=== PATIENT | female | born 1950 | race Caucasian/White ===

== ENCOUNTER 2016-07-03 00:43 | Emergency (ER) | payer OTHER ==
[2016-07-03 01:25] LABS: BASOPHIL 0.6 % (0-2.0); EOSINOPHIL 2.3 % (0-4.5); MCH 27.3 pg (25.7-33.7); MCHC 33.1 g/dl (32.0-36.0); MEAN CELL VOLUME 82.5 fl (80-96); MEAN PLT VOLUME 10.2 fl (7.5-11.1); NEUTROPHILS 63.2 % (42.8-82.8); PLATELET COUNT 246 K/MM3 (134-434); RDW 15.5 % (11.6-15.6); WHITE BLOOD COUNT 8.7 K/mm3 (4.0-10.0)
[2016-07-03 01:27] VITALS: TEMP 98.2; BMI 48.4
[2016-07-03 01:41] LABS: INR 0.96 (0.82-1.09); PROTHROMBIN TIME (PATIENT) 10.6 SEC (9.98-11.88)
[2016-07-03 01:43] LABS: ACTIVATED PTT 30.1 SECONDS (26.9-34.4)
[2016-07-03 01:51] LABS: ALBUMIN 3.1 g/dl (3.4-5.0); ANION GAP 11 (8-16); BILIRUBIN,TOTAL 0.2 mg/dL (0.2-1.0); CALCIUM 8.8 mg/dL (8.5-10.1); CO2 28 mmol/L (21-32); CREATININE 0.7 mg/dL (0.55-1.02); GLUCOSE,RANDOM 97 mg/dL (74-106); SGOT/AST 10 U/L (15-37); SGPT/ALT 16 U/L (12-78); TOT PROT 7.3 g/dl (6.4-8.2)
[2016-07-03 01:53] LABS: ALK PHOS 73 U/L (45-117); TROPONIN I 0.02 ng/ml (0.00-0.05)
--- NOTE | 2016-07-03 02:41 | PDOC ---
History of Present Illness - General Chief Complaint: Chest Pain Stated Complaint: CHEST PAIN Time Seen by Provider: 07/03/16 00:54 History Source: Family Exam Limitations: Language Barrier - History of Present Illness Initial Comments: 07/03/16 02:36 65yo Female patient w/ PmHx: HLD, HTN, DM, Asthma, and Morbid Obesity presents to ED c/o chest pain. Patient state symptoms began today while at home. She states pain began in LE and radiated up to her chest traveling down medial aspect of left arm. Patient denies n/v/d, fever, cough, congestion, back pain, abd pain, diff breathing, rash, or any other complaints at this time. Associated dizziness. Presenting Symptoms: Chest Pain, Dizziness Timing/Duration: reports: intermittent Severity/Quality: reports: moderate Location: reports: shoulder (left) Chest Pain Radiation: reports: arms (left) Activities at Onset: reports: no specific activity Past History - Travel Traveled outside of the country in the last 30 days: No Close contact w/someone who was outside of country & ill: No - Past Medical History Allergies/Adverse Reactions: Allergies Allergy/AdvReac Type Severity Reaction Status Date / Time Penicillins Allergy Difficulty Verified 08/02/15 01:42 Breathing Home Medications: Ambulatory Orders Aspirin [ASA -] 81 mg PO DAILY 08/02/12 Mometasone Furoate [Asmanex 220Mcg -] 2 inh IH DAILY PRN 08/02/12 Atorvastatin Ca [Lipitor] 40 mg PO HS #30 tablet 01/02/15 Insulin (Levemir) [Levemir Flexpen -] 30 units SQ DAILY@0700 07/03/16 Insulin Lispro Protamin/Lispro [Humalog Mix 50-50 Vial] 15 unit SQ BID 07/03/16 Asthma: Yes Diabetes: Yes HTN: Yes Hypercholesterolemia: Yes - Surgical History Abdominal Surgery: Yes Orthopedic Surgery: Yes (knee surgery) - Immunization History Immunization Up to Date: Yes - Psycho/Social/Smoking Cessation Hx Anxiety: No Suicidal Ideation: No Smoking Status: No Smoking History: Never smoked Have you smoked in the past 12 months: No Number of Cigarettes Smoked Daily: 0 Information on smoking cessation initiated: No Hx Alcohol Use: No Drug/Substance Use Hx: No Substance Use Type: None Hx Substance Use Treatment: No Cardiac Specific PMH - Complaint Specific PMHX Abdominal Aortic Aneurysm: No Angina: No Cardiac Arrhythmia: No Cardiac Stent: No GERD: No Myocardial Infarction: No Pacemaker: No Pulmonary Embolus: No Valvular Heart Disease: No Peripheral Vascular Disease: No Review of Systems - Review of Systems Able to Perform ROS?: Yes Is the patient limited [place] proficient: Yes Constitutional: No: Chills, Fever Respiratory: No: Cough, Shortness of Breath, Stridor, Wheezing, Productive cough , Hemoptysis Cardiac (ROS): Yes: Chest Pain. No: Edema, Lightheadedness, Palpitations, Syncope, Chest Tightness ABD/GI: No: Diarrhea, Nausea, Poor Appetite, Poor Fluid Intake, Rectal Bleeding , Vomiting : No: Dysuria, Discharge, Flank Pain, Hematuria, Pain, Urgency Musculoskeletal: No: Back Pain, Muscle Pain, Muscle Weakness Integumentary: No: Bruising, Erythema, Rash Neurological: Yes: Dizziness. No: Headache, Numbness, Paresthesia, Seizure, Tingling, Weakness All Other Systems: Reviewed and Negative *Physical Exam - Vital Signs Last Vital Signs Temp Pulse Resp BP Pulse Ox 98.2 F 80 21 146/61 100 07/03/16 01:21 07/03/16 01:21 07/03/16 01:21 07/03/16 01:21 07/03/16 01:21 - Physical Exam General Appearance: Yes: Nourished, Appropriately Dressed. No: Apparent Distress, Mild Distress, Severe Distress Neck: positive: Trachea midline, Supple. negative: Stridor, Lymphadenopathy (R) , Lymphadenopathy (L) Respiratory/Chest: positive: Lungs Clear, Normal Breath Sounds. negative: Respiratory Distress, Accessory Muscle Use, Labored Respiration, Rapid RR, Stridor, Wheezing Cardiovascular: positive: Regular Rhythm, Regular Rate. negative: Edema, JVD, Murmur Gastrointestinal/Abdominal: positive: Normal Bowel Sounds, Soft, Distended. negative: Guarding, Rebound, Tenderness Musculoskeletal: positive: Normal Inspection. negative: CVA Tenderness Extremity: positive: Normal Capillary Refill, Normal Inspection, Normal Range of Motion, Pedal Edema, Swelling Integumentary: positive: Normal Color, Dry, Warm Neurologic: positive: desk director II-XII NML intact, Fully Oriented, Alert, Normal Mood/ Affect, Normal Response, Motor Strength /5 ED Treatment Course - LABORATORY CBC & Chemistry Diagram: 07/03/16 01:17 01:17 - ADDITIONAL ORDERS Additional order review: Laboratory Results 07/03/16 07/03/16 01:17 01:17 INR 0.96 PTT (Actin FS) 30.1 Sodium 138 Potassium 4.3 Chloride 99 Carbon Dioxide 28 Anion Gap 11 BUN 24 H Creatinine 0.7 Creat Clearance w eGFR > 60 Random Glucose 97 D Calcium 8.8 Total Bilirubin 0.2 AST 10 L D ALT 16 D Alkaline Phosphatase 73 Creatine Kinase 88 Troponin I 0.02 Total Protein 7.3 Albumin 3.1 L 07/03/16 01:17 RBC 3.69 MCV 82.5 MCHC 33.1 RDW 15.5 MPV 10.2 Neutrophils % 63.2 Lymphocytes % 23.6 Monocytes % 10.3 H Eosinophils % 2.3 Basophils % 0.6 - RADIOLOGY Radiology Studies Ordered: Category Date Time Status CHEST X-RAY PORTABLE* [RAD] Stat Radiology 07/03/16 01:05 Taken Medical Decision Making - Medical Decision Making 07/03/16 03:[address] Hobson regarding patient work-up and previous admission. Patient okay to d/c home and f/u in office. Family agrees with plan as well as patient. *DC/Admit/Observation/Transfer Diagnosis at time of Disposition: Atypical chest pain - Discharge Dispostion Disposition: HOME Condition at time of disposition: Improved Admit: No - Patient Instructions Printed Discharge Instructions: DI for Atypical Chest Pain Additional Instructions: FOLLOW UP WITH DR. COPE ON MONDAY FOR FURTHER EVALUATION. CALL TO SCHEDULE APPOINTMENT. CONTINUE YOUR MEDICATIONS PRESCRIBED. RETURN IF SYMPTOMS WORSEN , OR ANY CONCERNS FOR FURTHER EVALUATION. Print Language: [place]
[2016-07-03] MEDS ORDERED: MECLIZINE HCL 25 MG TABLET (FP) PO ONE (03:45)
[2016-07-03] MEDS ORDERED: MECLIZINE HCL 25 MG TABLET (FP) ONE (03:49)
[2016-07-03 03:59] VITALS: BP 141/76; PULSE 82
--- NOTE | 2016-07-03 17:16 | EKG ---
Test Reason : Blood Pressure : / mmHG Vent. Rate : 083 BPM Atrial Rate : 083 BPM P-R Int : 166 ms QRS Dur : 108 ms QT Int : 386 ms P-R-T Axes : 051 -34 105 degrees QTc Int : 453 ms NORMAL SINUS RHYTHM LEFT AXIS DEVIATION LEFT VENTRICULAR HYPERTROPHY WITH REPOLARIZATION ABNORMALITY CANNOT RULE OUT SEPTAL INFARCT , AGE UNDETERMINED ABNORMAL ECG WHEN COMPARED WITH ECG OF 02-AUG-2015 02:08, NO SIGNIFICANT CHANGE WAS FOUND Confirmed by MANI CORNEJO MD ([id number]) on 07/03/2016 5:15:57 PM Referred By: Confirmed By:MANI CORNEJO MD
== END 2016-07-03 03:58 | disposition home or self-care (01) ==
LOC: JER 00:43
DX: R07.89 Other chest pain (principal); E11.9 Type 2 diabetes mellitus without complications; Z79.4 Long term (current) use of insulin; J45.909 Unspecified asthma, uncomplicated; I10 Essential (primary) hypertension; E78.00 Pure hypercholesterolemia, unspecified
CPT/HCPCS: 36415; 71010-TC; 80053; 82550; 84484; 85025; 85610; 85730; 93005; 93010; 99284-25

== ENCOUNTER 2017-02-20 09:28 | Inpatient (IN) | payer OTHER ==
[2017-02-20] MEDS ORDERED: methylPREDNISolone NA SUCC 125 MG/2 ML VIAL IVPB ONE (10:01)
[2017-02-20] MEDS ORDERED: ALBUTEROL SO4 2.5/IPRATROPIUM 0.5 INH SOL 3 ML VIAL.NEB. NEB ONE ×3 (10:01→20:43)
--- NOTE | 2017-02-20 10:05 | PDOC ---
History of Present Illness - History of Present Illness Initial Comments: 02/20/17 10:55 66 year old female, with significant past medical history of asthma, IDDM, HTN, HLD, who presents to the emergency room complaining of SOB, nasal congestion, chest tightness, and chills that started on , 5 days ago. The patients son states the symptoms started when the patient had a head cold. The SOB and chest tightness progressively worsened over the past 4 days and he called Dr. Philip today when his mother started wheezing, who advised them to come into the ED. Denies nausea, vomiting. Denies increased leg swelling. Denies recent illness. Allergies: penicillin PCP: Dr. Philip <Pam Mckeon - Last Filed: 02/20/17 10:55> - General History Source: Patient, Family, Old Records Exam Limitations: No Limitations <Ruel Hartmann - Last Filed: 02/20/17 11:34> - General Chief Complaint: Shortness of Breath Stated Complaint: SOB Time Seen by Provider: 02/20/17 09:50 Past History <Pam Mckeon - Last Filed: 02/20/17 10:55> - Past Medical History Asthma: Yes COPD: No Diabetes: Yes HTN: Yes Hypercholesterolemia: Yes - Surgical History Abdominal Surgery: Yes Orthopedic Surgery: Yes (knee surgery) - Immunization History Immunization Up to Date: Yes - Suicide/Smoking/Psychosocial Hx Smoking Status: No Smoking History: Never smoked Have you smoked in the past 12 months: No Number of Cigarettes Smoked Daily: 0 Information on smoking cessation initiated: No Hx Alcohol Use: No Drug/Substance Use Hx: No Substance Use Type: None Hx Substance Use Treatment: No <Ruel Hartmann - Last Filed: 02/20/17 11:34> - Past Medical History Allergies/Adverse Reactions: Allergies Allergy/AdvReac Type Severity Reaction Status Date / Time Penicillins Allergy Difficulty Verified 02/20/17 09:38 Breathing Home Medications: Ambulatory Orders Aspirin [ASA -] 81 mg PO DAILY 08/02/12 Mometasone Furoate [Asmanex 220Mcg -] 2 inh IH DAILY PRN 08/02/12 Atorvastatin Ca [Lipitor] 40 mg PO HS #30 tablet 01/02/15 Insulin (Levemir) [Levemir Flexpen -] 30 units SQ DAILY@0700 07/03/16 Insulin Lispro Protamin/Lispro [Humalog Mix 50-50 Vial] 15 unit SQ BID 07/03/16 Review of Systems - Review of Systems Able to Perform ROS?: Yes Comments:: 02/20/17 10:56 GENERAL/CONSTITUTIONAL: +chills. No weakness. HEAD, EYES, EARS, NOSE AND THROAT: No change in vision. No ear pain or discharge. No sore throat. CARDIOVASCULAR: No chest pain RESPIRATORY: +SOB, chest tightness, congestion, wheezing. No cough, or hemoptysis. GASTROINTESTINAL: No nausea, vomiting, diarrhea or constipation. GENITOURINARY: No dysuria, frequency, or change in urination. MUSCULOSKELETAL: No joint or muscle swelling or pain. No neck or back pain. SKIN: No rash NEUROLOGIC: No headache, vertigo, loss of consciousness, or change in strength/ sensation. ENDOCRINE: No increased thirst. No abnormal weight change. HEMATOLOGIC/LYMPHATIC: No anemia, easy bleeding, or history of blood clots. ALLERGIC/IMMUNOLOGIC: No hives or skin allergy. <Pam Mckeon - Last Filed: 02/20/17 10:55> *Physical Exam - Vital Signs Last Vital Signs Temp Pulse Resp BP Pulse Ox 98 F 92 H 20 134/70 87 L 02/20/17 09:35 02/20/17 09:35 02/20/17 09:35 02/20/17 09:35 02/20/17 09:35 - Physical Exam Comments: 02/20/17 10:56 GENERAL: Awake, alert, and fully oriented, in no acute distress HEAD: No signs of trauma EYES: PERRLA, EOMI, sclera anicteric, conjunctiva clear ENT: Auricles normal inspection, hearing grossly normal, nares patent, oropharynx clear without exudates. Moist mucosa NECK: Normal ROM, supple, no lymphadenopathy, JVD, or masses LUNGS: Tachypneic to 30. Diffuse wheezing bilaterally. no crackles HEART: Regular rate and rhythm, normal S1 and S2, no murmurs, rubs or gallops ABDOMEN: Obese. Soft, nontender, normoactive bowel sounds. No guarding, no rebound. No masses EXTREMITIES: Normal range of motion, no edema. No clubbing or cyanosis. No cords, erythema, or tenderness NEUROLOGICAL: Cranial nerves II through XII grossly intact. Normal speech, normal gait SKIN: Warm, Dry, normal turgor, no rashes or lesions noted. <Pam Mckeon - Last Filed: 02/20/17 10:55> - Vital Signs Last Vital Signs Temp Pulse Resp BP Pulse Ox 98 F 92 H 20 134/70 87 L 02/20/17 09:35 02/20/17 09:35 02/20/17 09:35 02/20/17 09:35 02/20/17 09:35 <Ruel Hartmann - Last Filed: 02/20/17 11:34> Heart Score/ECG Review #1 ECG reviewed & interpreted by me at: 09:45 02/20/17 10:05 NSR 93, LVH with TWI I, avL, LBBB like pattern, QTC 450 msec <Ruel Hartmann - Last Filed: 02/20/17 11:34> ED Treatment Course - LABORATORY CBC & Chemistry Diagram: 02/20/17 10:10 02/20/17 10:10 - ADDITIONAL ORDERS Additional order review: Laboratory Results 02/20/17 02/20/17 02/20/17 10:15 10:10 10:10 PT with INR 12.40 H INR 1.10 PTT (Actin FS) 26.3 L VBG pH 7.31 L POC VBG pCO2 46.7 POC VBG pO2 45.3 Mixed VBG HCO3 22.9 B-Natriuretic Peptide Cancelled 02/20/17 10:10 RBC 3.22 L MCV 85.0 MCHC 32.2 RDW 15.4 MPV 10.6 Neutrophils % 73.3 Lymphocytes % 16.0 D Monocytes % 9.1 Eosinophils % 0.8 Basophils % 0.8 - Medications Given in the ED: ED Medications Discontinued Medications Generic Name Dose Route Start Last Admin Trade Name Freq PRN Reason Stop Dose Admin Albuterol/Ipratropium 3 amp 02/20/17 10:01 02/20/17 10:09 Duoneb - NEB 02/20/17 10:02 3 amp ONCE ONE Administration Methylprednisolone Sodium Succinate 125 mg 02/20/17 10:01 02/20/17 10:09 Solu-Medrol - IVPB 02/20/17 10:02 125 mg ONCE ONE Administration <Pam Mckeon - Last Filed: 02/20/17 10:55> - LABORATORY CBC & Chemistry Diagram: 02/20/17 10:10 02/20/17 10:10 - RADIOLOGY Radiology Studies Ordered: Category Date Time Status CHEST X-RAY PORTABLE* [RAD] Stat Radiology 02/20/17 09:51 Ordered <Ruel Hartmann - Last Filed: 02/20/17 11:34> Medical Decision Making - Critical Care Time Total Critical Care Time (minutes): 35 Critical Care Statement: The care of this patient involved high complexity decision making to prevent further life threatening deterioration of the patient 's condition and/or to evaluate & treat vital organ system(s) failure or risk of failure. - Medical Decision Making 02/20/17 10:04 A portion of this note was documented by scribe services under my direction. I have reviewed the details of the note, within reason, and agree with the documentation with the following case summary and management plan written by me. Patient treated in the ED. Nursing notes are reviewed and incorporated into the medical decision-making. Vital signs reviewed. Peripheral IV access obtained by the nurse, laboratory studies are drawn and sent, reviewed and interpreted by myself. Vital Signs Temp Pulse Resp BP Pulse Ox 98 F 92 H 20 134/70 87 L 02/20/17 09:35 02/20/17 09:35 02/20/17 09:35 02/20/17 09:35 02/20/17 09:35 66 year old female with past medical history of hypertension, diabetes, hyperlipidemia, asthma, morbid obesity sent in by Dr. Philip for shortness of breath, cough and difficulty breathing. The patient the last several days has been endorsing upper respiratory signs and wheezing. 3 days ago, the patient was prescribed Augmentin and compliant to her medications. However, patient continues to wheezes and feels weak and endorses tactile fevers and chills. The patient is certainly wheezing and with asthma exacerbation with likely upper respiratory infection. We'll need to rule out pneumonia. We'll give nebulizers, steroids and likely antibiotics. Sepsis protocol initiated. 02/20/17 11:31 CBC, BMP 02/20/17 10:10 02/20/17 10:10 CMP Sodium 135 mmol/L (136-145) L 02/20/17 10:10 Potassium 5.6 mmol/L (3.5-5.1) H D 02/20/17 10:10 Chloride 99 mmol/L (98-107) 02/20/17 10:10 Carbon Dioxide 28 mmol/L (21-32) 02/20/17 10:10 Anion Gap 8 (8-16) 02/20/17 10:10 BUN 26 mg/dL (7-18) H 02/20/17 10:10 Creatinine 1.1 mg/dL (0.55-1.02) H D 02/20/17 10:10 Creat Clearance w eGFR 49.54 (>60) 02/20/17 10:10 Random Glucose 251 mg/dL (74-106) H D 02/20/17 10:10 Lactic Acid 1.5 mmol/L (0.4-2.0) 02/20/17 10:10 Calcium 8.4 mg/dL (8.5-10.1) L 02/20/17 10:10 Total Bilirubin 0.4 mg/dL (0.2-1.0) D 02/20/17 10:10 AST 41 U/L (15-37) H D 02/20/17 10:10 ALT 26 U/L (12-78) D 02/20/17 10:10 Alkaline Phosphatase 64 U/L (45-117) 02/20/17 10:10 Creatine Kinase 523 IU/L (26-192) H 02/20/17 10:10 Creatine Kinase Index 0.2 % (0.0-5.0) 02/20/17 10:10 CK-MB (CK-2) 1.150 ng/mL (0.5-3.6) 02/20/17 10:10 Troponin I 0.07 ng/ml (0.00-0.05) H 02/20/17 10:10 B-Natriuretic Peptide Cancelled 02/20/17 10:15 Total Protein 6.9 g/dl (6.4-8.2) 02/20/17 10:10 Albumin 2.6 g/dl (3.4-5.0) L 02/20/17 10:10 Chest xray reviewed: Pulmonary vascular congestion vs. bilateral pneumonia. Levaquin ordered. Pt given nebulizers, steroids, and magnesium with improvement in symptoms. Troponin slightly elevated, though likely secondary to strain. However, it is quite possible that her coughing and wheezing may be cardiogenic in origin. Either way, the patient will need further workup inpatient. For the elevated potassium, albuterol has been given. Pt also noted with anemia on blood work, but no transfusion required. Guiac ordered. Case discussed with Dr. iL. Admitted under telemetry admission. Case discussed in detail with admitting physician including history, physical exam and ancillary studies. Admitting physician has assumed care for the patient, will follow all pending diagnostics and will complete the evaluation and treatment. <Ruel Hartmann - Last Filed: 02/20/17 11:34> *DC/Admit/Observation/Transfer <Pam Mckeon - Last Filed: 02/20/17 10:55> - Discharge Dispostion Admit: Yes <Ruel Hartmann - Last Filed: 02/20/17 11:34> Diagnosis at time of Disposition: Shortness of breath Pneumonia Qualifiers: Pneumonia type: due to unspecified organism Laterality: bilateral Lung location : unspecified part of lung Qualified Code(s): J18.9 - Pneumonia, unspecified organism - Discharge Dispostion Condition at time of disposition: Fair - Referrals Referrals: Russell Philip MD [Primary Care Provider] - - Patient Instructions - Post Discharge Activity
[2017-02-20 10:17] LABS: VENOUS BLOOD GAS HCO3 22.9 meq/L (19-25); VENOUS PH 7.31 (7.32-7.42)
[2017-02-20 10:18] LABS: BASOPHIL 0.8 % (0-2.0); EOSINOPHIL 0.8 % (0-4.5); MCH 27.3 pg (25.7-33.7); MCHC 32.2 g/dl (32.0-36.0); MEAN PLT VOLUME 10.6 fl (7.5-11.1); NEUTROPHILS 73.3 % (42.8-82.8); PLATELET COUNT 192 K/MM3 (134-434); RDW 15.4 % (11.6-15.6); WHITE BLOOD COUNT 7.2 K/mm3 (4.0-10.0)
[2017-02-20] MEDS ORDERED: methylPREDNISolone NA SUCC 125 MG/2 ML VIAL ONE (10:22)
[2017-02-20 10:36] LABS: INR 1.1 (0.82-1.09); PROTHROMBIN TIME (PATIENT) 12.4 SEC (9.98-11.88)
[2017-02-20 10:39] LABS: ACTIVATED PTT 26.3 SECONDS (26.9-34.4)
[2017-02-20 10:57] LABS: ALBUMIN 2.6 g/dl (3.4-5.0); ANION GAP 8 (8-16); CALCIUM 8.4 mg/dL (8.5-10.1); CO2 28 mmol/L (21-32); CREATININE 1.1 mg/dL (0.55-1.02); GLUCOSE,RANDOM 251 mg/dL (74-106); SGPT/ALT 26 U/L (12-78)
[2017-02-20] MEDS ORDERED: LEVOFLOXACIN 500 MG IVPB 500 MG/100 ML BAG IVPB ONE ×2 (10:57→11:05)
[2017-02-20] MEDS ORDERED: ACETAMINOPHEN 1000 MG/100 ML VIAL (NON FORMULARY) IVPB ONE (10:59)
[2017-02-20] MEDS ORDERED: ALBUTEROL SO4 0.083% IH SOL 2.5 MG/3 ML VIAL.NEB. NEB ONE ×2 (10:59→11:04)
[2017-02-20] MEDS ORDERED: MAGNESIUM SULF 50% (8.12 MEQ/2 ML-1 GM VIAL) IVPB ONE (10:59)
[2017-02-20 11:01] LABS: ALK PHOS 64 U/L (45-117); BILIRUBIN,TOTAL 0.4 mg/dL (0.2-1.0); TOT PROT 6.9 g/dl (6.4-8.2); TROPONIN I 0.07 ng/ml (0.00-0.05)
[2017-02-20 11:03] LABS: CPK 523 IU/L (26-192); SGOT/AST 41 U/L (15-37)
[2017-02-20] MEDS ORDERED: MAGNESIUM SULF 50% (8.12 MEQ/2 ML-1 GM VIAL) ONE (11:04)
[2017-02-20] MEDS ORDERED: ACETAMINOPHEN INJECTION 100 ML IVPB ONE (11:05)
--- NOTE | 2017-02-20 13:34 | EKG ---
Test Reason : Blood Pressure : / mmHG Vent. Rate : 093 BPM Atrial Rate : 093 BPM P-R Int : 136 ms QRS Dur : 102 ms QT Int : 362 ms P-R-T Axes : 044 -38 109 degrees QTc Int : 450 ms NORMAL SINUS RHYTHM LEFT AXIS DEVIATION T WAVE ABNORMALITY, CONSIDER LATERAL ISCHEMIA ABNORMAL ECG WHEN COMPARED WITH ECG OF 03-JUL-2016 00:57, NO SIGNIFICANT CHANGE WAS FOUND Confirmed by TITO ROBERTS MD ([id number]) on 02/20/2017 1:34:42 PM Referred By: Confirmed By:TITO ROBERTS MD
[2017-02-20] MEDS ORDERED: ACETAMINOPHEN 325 MG TABLET (FP) PO PRN (14:18)
--- NOTE | 2017-02-20 14:18 | HP ---
Admitting History and Physical - Primary Care Physician PCP: Russell Philip - Admission Chief Complaint: sob,cough, for one week History of Present Illness: 66 year old female, with significant past medical history of asthma, IDDM, HTN, HLD, who presents to the emergency room complaining of SOB, nasal congestion, chest tightness, and chills that started on , 5 days ago. The patients son states the symptoms started when the patient had a head cold. The SOB and chest tightness progressively worsened over the past 4 days and he called Dr. Philip today when his mother started wheezing, who advised them to come into the ED. Denies nausea, vomiting. Denies increased leg swelling. Denies recent illness. Allergies: penicillin PCP: Dr. Philip in ER oxygen 87% on room air got iv abx, nebulizer,magnesium, oxygen History Source: Patient - Past Medical History Cardiovascular: Yes: HTN, Hyperlipdemia Pulmonary: Yes: Asthma, Sleep Apnea Gastrointestinal: Yes: GERD Musculoskeletal: Yes: Osteoarthritis Endocrine: Yes: Diabetes Mellitus - Smoking History Smoking history: Never smoked Have you smoked in the past 12 months: No Aproximately how many cigarettes per day: 0 - Alcohol/Substance Use Hx Alcohol Use: No Home Medications - Allergies Allergies/Adverse Reactions: Allergies Allergy/AdvReac Type Severity Reaction Status Date / Time Penicillins Allergy Difficulty Verified 02/20/17 09:38 Breathing - Home Medications Home Medications: Ambulatory Orders Aspirin [ASA -] 81 mg PO DAILY 08/02/12 Mometasone Furoate [Asmanex 220Mcg -] 2 inh IH DAILY PRN 08/02/12 Atorvastatin Ca [Lipitor] 40 mg PO HS #30 tablet 01/02/15 Insulin (Levemir) [Levemir Flexpen -] 30 units SQ DAILY@0700 07/03/16 Insulin Lispro Protamin/Lispro [Humalog Mix 50-50 Vial] 15 unit SQ BID 07/03/16 Review of Systems - Review of Systems Respiratory: reports: Cough, SOB, Wheezing Physical Examination Vital Signs: Vital Signs Temperature 98 F 02/20/17 09:35 Pulse Rate 92 H 02/20/17 09:35 Respiratory Rate 20 02/20/17 09:35 Blood Pressure 134/70 02/20/17 09:35 O2 Sat by Pulse Oximetry (%) 87 L 02/20/17 09:35 Constitutional: Yes: Mild Distress Cardiovascular: Yes: Regular Rate and Rhythm, S1, S2 Respiratory: Yes: Cough, On Nasal O2, Tachypnea, Wheezes Gastrointestinal: Yes: Normal Bowel Sounds, Soft Neurological: Yes: Alert, Oriented Labs: CBC, BMP 02/20/17 10:10 02/20/17 10:10 Imaging - Results Chest X-ray: Report Reviewed (bilateral infiltrate vs congestive changes) Problem List - Problems (1) Pneumonia Assessment/Plan: iv abx CT chest pulm eval oxygen Code(s): J18.9 - PNEUMONIA, UNSPECIFIED ORGANISM Qualifiers: Pneumonia type: due to unspecified organism Laterality: bilateral Lung location: unspecified part of lung Qualified Code(s): J18.9 - Pneumonia, unspecified organism (2) Shortness of breath Assessment/Plan: possible asthma exacerbation with underlying infection duonebs solumedrol oxygen pulm eval echo cardio eval Code(s): R06.02 - SHORTNESS OF BREATH (3) Cough Assessment/Plan: see above Code(s): R05 - COUGH (4) Diabetes mellitus, insulin dependent (IDDM), uncontrolled Assessment/Plan: bgm sliding scale levemir hgba1c Code(s): E10.65 - TYPE 1 DIABETES MELLITUS WITH HYPERGLYCEMIA (5) Elevated troponin Assessment/Plan: tele echo trend CE cardio eval lipid panel Code(s): R74.8 - ABNORMAL LEVELS OF OTHER SERUM ENZYMES
[2017-02-20 14:26] LABS: URINE APPEARANCE CLOUDY; URINE BILIRUBIN NEGATIVE (NEGATIVE); URINE BLOOD NEGATIVE (NEGATIVE); URINE COLOR DKYELLOW; URINE GLUCOSE (UA) 2+ (NEGATIVE); URINE KETONE NEGATIVE (NEGATIVE); URINE NITRITE NEGATIVE (NEGATIVE); URINE UROBILINOGEN NEGATIVE mg/dL (0.2-1.0)
[2017-02-20 14:34] LABS: URINE PROTEIN 3+ (NEGATIVE)
[2017-02-20] MEDS: ALBUTEROL SO4 2.5/IPRATROPIUM 0.5 INH SOL 3 ML VIAL.NEB. NEB SCH ×3 (14:36→22:16)
[2017-02-20 14:41] LABS: GRANULAR CASTS 21 /lpf; URINE HYALINE CAST 7 /lpf; URINE MUCUS FEW; URINE RBC 7 /hpf (0-3); URINE WBC 10 /hpf (3-5)
[2017-02-20] MEDS: INSULIN DETEMIR 100 UNITS/ML MDV SQ SCH ×2 (14:44→22:55)
[2017-02-20] MEDS: INSULIN SLIDING SCALE (NOVOLOG) 1 VIAL SQ SCH ×3 (14:44→22:16)
[2017-02-20] MEDS ORDERED: methylPREDNISolone NA SUCC 40 MG/1 ML VIAL IVPB SCH (15:00)
[2017-02-20] MEDS: methylPREDNISolone NA SUCC 40 MG/1 ML VIAL IVPUSH SCH ×2 (15:06→21:29)
--- NOTE | 2017-02-20 16:01 | CON.CARD ---
Consult Consult Specialty:: Cardiology Referred by:: Jared Reason for Consultation:: sob cp - History of Present Illness Chief Complaint: sob cp History of Present Illness: She is a 66 year old female, history of asthma, NIDDM, HTN, chol, who presents with SOB, nasal congestion, chest tightness, and chills that started on 5 days ago, some fever now better. Also orthopnea and edema. No chest pain, the tightness was post tussive and somewhat exertional for the past few days. No palpitations dizziness or syncope. - History Source History Provided By: Patient, Medical Record - Past Medical History Cardio/Vascular: Yes: HTN, Hyperlipdemia Pulmonary: Yes: Asthma, Sleep Apnea Gastrointestinal: Yes: GERD Musculoskeletal: Yes: Osteoarthritis Endocrine: Yes: Diabetes Mellitus - Alcohol/Substance Use Hx Alcohol Use: No - Smoking History Smoking history: Never smoked Have you smoked in the past 12 months: No Aproximately how many cigarettes per day: 0 Home Medications - Allergies Allergies/Adverse Reactions: Allergies Allergy/AdvReac Type Severity Reaction Status Date / Time Penicillins Allergy Difficulty Verified 02/20/17 09:38 Breathing - Home Medications Home Medications: Ambulatory Orders Aspirin [ASA -] 81 mg PO DAILY 08/02/12 Mometasone Furoate [Asmanex 220Mcg -] 2 inh IH DAILY PRN 08/02/12 Atorvastatin Ca [Lipitor] 40 mg PO HS #30 tablet 01/02/15 Insulin (Levemir) [Levemir Flexpen -] 30 units SQ DAILY@0700 07/03/16 Insulin Lispro Protamin/Lispro [Humalog Mix 50-50 Vial] 15 unit SQ BID 07/03/16 Review of Systems - Review of Systems Constitutional: reports: No Symptoms Eyes: reports: No Symptoms HENT: reports: No Symptoms Neck: reports: No Symptoms Cardiovascular: reports: No Symptoms, Shortness of Breath Gastrointestinal: reports: No Symptoms Genitourinary: reports: No Symptoms Vital Signs: Vital Signs Temperature 98.3 F 02/20/17 14:52 Pulse Rate 98 H 02/20/17 14:52 Respiratory Rate 20 02/20/17 14:52 Blood Pressure 134/80 02/20/17 14:52 O2 Sat by Pulse Oximetry (%) 95 02/20/17 14:52 Constitutional: Yes: Well Nourished, Obese Eyes: Yes: Conjunctiva Clear, EOM Intact HENT: Yes: Atraumatic, Normocephalic Neck: Yes: Supple, Trachea Midline Respiratory: Yes: Regular, Rhonchi Gastrointestinal: Yes: Normal Bowel Sounds, Soft, Abdomen, Obese Renal/: Yes: WNL JVD: No Carotid Bruit: No PMI: Non-Displaced Heart Sounds: Yes: S1, S2 Murmur: Yes: Systolic Murmur, Grade 2 Extremities: Yes: WNL Edema: Yes Edema: LLE: 1+, RLE: 1+ - Other Data Labs, Other Data: CBC, BMP 02/20/17 10:10 02/20/17 10:10 INR, PTT INR 1.10 (0.82-1.09) 02/20/17 10:10 Troponin, BNP 02/20/17 02/20/17 10:10 10:15 Troponin I 0.07 H B-Natriuretic Peptide 939.36 H Cancelled Troponin, BNP 02/20/17 02/20/17 10:10 10:15 Troponin I 0.07 H B-Natriuretic Peptide 939.36 H Cancelled Imaging - Results Chest X-ray: Report Reviewed (bilat inc markings.) EKG: Report Reviewed (nsr lad nssttw changes.) Problem List - Problems (1) Shortness of breath Assessment/Plan: mild elevation of bnp. Echo to assess LV function. Check CT scan. would give PO lasix 40 mg daily. Code(s): R06.02 - SHORTNESS OF BREATH (2) Atypical chest pain Assessment/Plan: Obtain echo. Her troponin is minimally elevated, will follow cardiac enzymes, may be due to hypoxia. Defer stress testing. asa and hold beta kayli for now due to wheezing. Code(s): R07.89 - OTHER CHEST PAIN
--- NOTE | 2017-02-20 16:29 | PN ---
Progress Note (short form) - Note Progress Note: PULMONARY CONSULTATION DICTATED IMP ACUTE HYPOXEMIC RESPIRATORY FAILURE PNEUMONIA ASTHMA HORACE ELEVATED TROPONIN LEVEL ? CHF DM OSAS PLAN INHALED BRONCHODILATORS O2 ANTIBIOTICS STEROIDS LASIX CULTURES F/U CHEST X-RAYS MONITOR LYTES,RENAL FUNCTION TREND TROPONIN DR MANN Problem List - Problems (1) Acute hypoxemic respiratory failure Code(s): J96.01 - ACUTE RESPIRATORY FAILURE WITH HYPOXIA (2) Pneumonia Code(s): J18.9 - PNEUMONIA, UNSPECIFIED ORGANISM Qualifiers: Pneumonia type: due to unspecified organism Laterality: bilateral Lung location: unspecified part of lung Qualified Code(s): J18.9 - Pneumonia, unspecified organism (3) Shortness of breath Code(s): R06.02 - SHORTNESS OF BREATH (4) Chest pain Code(s): R07.9 - CHEST PAIN, UNSPECIFIED Qualifiers: Chest pain type: intercostal pain Qualified Code(s): R07.82 - Intercostal pain (5) Cough Code(s): R05 - COUGH (6) Diabetes mellitus, insulin dependent (IDDM), uncontrolled Code(s): E10.65 - TYPE 1 DIABETES MELLITUS WITH HYPERGLYCEMIA (7) Dizziness Code(s): R42 - DIZZINESS AND GIDDINESS (8) HLD (hyperlipidemia) Code(s): E78.5 - HYPERLIPIDEMIA, UNSPECIFIED (9) Hypertension Code(s): I10 - ESSENTIAL (PRIMARY) HYPERTENSION
[2017-02-20] MEDS ORDERED: INSULIN (NOVOLOG) ASPART 100 UNITS/ML 10ML VIAL ONE ×2 (17:15→22:13)
--- NOTE | 2017-02-20 17:34 | CONSULT ---
Consult Consult Specialty:: Nephrology Reason for Consultation:: hyperkalemia - History of Present Illness Chief Complaint: cough and wheezing History of Present Illness: Pt is a 66 year old female with pmhx of DM, HTN, cho and obesity who presents to the ER with shortness of breath and cough. She also complains of wheezing. She has had a productive cough with yellow sputum. She was found to have elevated creatinine and potassium. She denies dysuria or hematuria. She does not know all of her meds. Unclear if she tool nsaids. She did have chest pain. She says she feels much better after the respiratory treatments in the ER. She is going for ct chest today. - History Source History Provided By: Patient, Medical Record - Past Medical History Cardio/Vascular: Yes: HTN, Hyperlipdemia Pulmonary: Yes: Asthma, Sleep Apnea Gastrointestinal: Yes: GERD Musculoskeletal: Yes: Osteoarthritis Endocrine: Yes: Diabetes Mellitus - Alcohol/Substance Use Hx Alcohol Use: No - Smoking History Smoking history: Never smoked Have you smoked in the past 12 months: No Aproximately how many cigarettes per day: 0 Home Medications - Allergies Allergies/Adverse Reactions: Allergies Allergy/AdvReac Type Severity Reaction Status Date / Time Penicillins Allergy Difficulty Verified 02/20/17 09:38 Breathing - Home Medications Home Medications: Ambulatory Orders Aspirin [ASA -] 81 mg PO DAILY 08/02/12 Mometasone Furoate [Asmanex 220Mcg -] 2 inh IH DAILY PRN 08/02/12 Atorvastatin Ca [Lipitor] 40 mg PO HS #30 tablet 01/02/15 Insulin (Levemir) [Levemir Flexpen -] 30 units SQ DAILY@0700 07/03/16 Insulin Lispro Protamin/Lispro [Humalog Mix 50-50 Vial] 15 unit SQ BID 07/03/16 Family Disease History - Family Disease History Family History: Denies Review of Systems - Review of Systems Constitutional: reports: Chills, Fever, Malaise Eyes: reports: No Symptoms HENT: reports: No Symptoms Neck: reports: No Symptoms Cardiovascular: reports: Edema, Shortness of Breath Respiratory: reports: Cough, SOB on Exertion Musculoskeletal: reports: No Symptoms Integumentary: reports: No Symptoms Neurological: reports: No Symptoms Endocrine: reports: No Symptoms Hematology/Lymphatic: reports: No Symptoms Psychiatric: reports: No Symptoms Physical Exam Vital Signs: Vital Signs Temperature 98.3 F 02/20/17 14:52 Pulse Rate 62 02/20/17 17:09 Respiratory Rate 12 02/20/17 17:09 Blood Pressure 123/52 02/20/17 17:09 O2 Sat by Pulse Oximetry (%) 96 02/20/17 17:09 Constitutional: Yes: Calm Eyes: Yes: Conjunctiva Clear HENT: Yes: Atraumatic Neck: Yes: Supple Cardiovascular: Yes: S1, S2 Respiratory: Yes: On Nasal O2, Wheezes Gastrointestinal: Yes: Soft, Abdomen, Obese Renal/: Yes: WNL Musculoskeletal: Yes: WNL Edema: Yes Edema: LLE: 1+, RLE: 1+ Neurological: Yes: Oriented Psychiatric: Yes: Oriented Labs: CBC, BMP 02/20/17 10:10 02/20/17 10:10 Imaging - Results Chest X-ray: Report Reviewed Problem List - Problems (1) Hyperkalemia Code(s): E87.5 - HYPERKALEMIA (2) Acute hypoxemic respiratory failure Code(s): J96.01 - ACUTE RESPIRATORY FAILURE WITH HYPOXIA (3) Pneumonia Code(s): J18.9 - PNEUMONIA, UNSPECIFIED ORGANISM Qualifiers: Pneumonia type: due to unspecified organism Laterality: bilateral Lung location: unspecified part of lung Qualified Code(s): J18.9 - Pneumonia, unspecified organism (4) Shortness of breath Code(s): R06.02 - SHORTNESS OF BREATH (5) Diabetes mellitus, insulin dependent (IDDM), uncontrolled Code(s): E10.65 - TYPE 1 DIABETES MELLITUS WITH HYPERGLYCEMIA Assessment/Plan Current Medications Generic Name Dose Route Start Last Admin Trade Name Freq PRN Reason Stop Dose Admin Acetaminophen 650 mg 02/20/17 14:18 Tylenol - PO Q4H PRN FEVER OR PAIN Albuterol/Ipratropium 1 amp 02/20/17 14:30 02/20/17 14:36 Duoneb - NEB 1 amp Q4H ALEE Administration Furosemide 40 mg 02/21/17 10:00 Lasix - PO DAILY ALEE Guaifenesin 10 ml 02/20/17 14:19 Robitussin - PO Q4H PRN COUGH Heparin Sodium (Porcine) 5,000 unit 02/20/17 22:00 Heparin - SQ BID ALEE Levofloxacin 500 mg in 100 mls @ 100 mls/hr 02/21/17 10:00 Levaquin 500 Mg Premixed Ivpb - IVPB DAILY ALEE Insulin Aspart 1 vial 02/20/17 14:30 02/20/17 17:23 Novolog Vial Sliding Scale - SQ 10 units ACHS ALEE Administration Protocol Insulin Detemir 20 units 02/20/17 14:30 02/20/17 14:44 Levemir Vial SQ 20 unit HS ALEE Administration Methylprednisolone Sodium Succinate 40 mg 02/20/17 15:00 02/20/17 15:06 Solu-Medrol - IVPUSH 40 mg Q6H-IV ALEE Administration Impression 1. hyperkalemia 2. vascular congestion 3. DM 4. PNA 5. obesity 6. HTN 7. chest pain Plan - continue with lasix - low potassium diet - agree with steroids - check ua - cont abx - cardio input appreciated - can give a dose of lasix, will help with potassium - will follow Dr Sahu
[2017-02-20] MEDS ORDERED: FUROSEMIDE 40 MG TABLET (FP) PO ONE (17:36)
[2017-02-20 18:14] LABS: URINE LEUK ESTERASE TRACE (NEGATIVE)
--- NOTE | 2017-02-20 18:46 | CONS ---
DATE OF CONSULTATION: 02/20/2017 PULMONARY CONSULTATION REFERRING PHYSICIAN: HISTORY OF PRESENT ILLNESS: The patient is a 66-year-old white Brazilian female with a past medical history of asthma, history of diabetes mellitus, hypertension, hyperlipidemia, obstructive sleep apnea, denies smoking, admitted to [facility] with complaint of increasing shortness of breath and chest congestion. Patient states that approximately 5 days prior to admission she started developing shortness of breath, cough, chest tightness and wheezing. Denied any nausea or vomiting. States she had fever, but she did not actually take a temperature. Over the past few days symptoms worsened, at which time she presented to the emergency room. In the ER, she was noted initially to be hypoxemic with O2 saturation of 87%. She was treated with inhaled bronchodilators, magnesium and O2 with good clinical response. She underwent a CT scan of the chest which revealed bilateral patchy infiltrates. She was given Levaquin in the ER. She denies any history of recent travel. There is no history of DVT or PE in the past. She was born in [place] and moved to the [facility] greater than 40 years ago. There is no history of recent travel. There is no history of hemoptysis. Denies any chest pain or palpitations. There is no history of occupational exposure. PAST MEDICAL HISTORY: Again includes asthma, diabetes mellitus, hypertension, hyperlipidemia, obstructive sleep apnea, and GERD. Osteoarthritis. REVIEW OF SYSTEMS: Positive cough. Positive bronchospasm. Positive shortness of breath. No chest pain. No palpitations. Positive chest tightness. Positive fever. Positive chills. No nausea. No vomiting. No abdominal pain. No lower extremity edema. MEDICATION: Include Solu-Medrol, Tylenol, Levaquin, heparin, DuoNeb, Robitussin, Novolog, Levemir, Lasix. PHYSICAL EXAMINATION: General: The patient is an obese female, awake, alert, in no acute distress. Vital signs: She is currently afebrile. Blood pressure 134/80, respiratory rate 20, and O2 saturation is 95% on 4 L. HEENT: Head is normocephalic, atraumatic. Neck: Supple. Heart: Regular. S1, S2. Chest: Clear. Bilateral wheezes. Abdomen: Soft. Bowel sounds positive. Extremities: No cyanosis, edema. LABORATORY: WBC is 7.2, hemoglobin 8.8, hematocrit 27.4, platelet count of 192,000. INR 1.1. Venous blood gas: pH of 7.31, pCO2 of 46, pO2 of 45, bicarbonate of 22. Chemistry: BUN 26, creatinine 1.1. BNP is 939. Chest CT as noted earlier. IMPRESSION: Acute hypoxemic respiratory failure secondary to bilateral pneumonia, community acquired. 2. Mild decompensated congestive heart failure. 3. Acute kidney injury. 4. Asthma exacerbation. 5. Diabetes mellitus. 6. Hypertension, likely obstructive sleep apnea. PLAN: IV steroids, inhaled bronchodilators, antibiotic therapy, supplemental O2, obtain cultures, Lasix, obtain followup chest x-rays. Monitor renal function. CHINO MANN M.D. [id number]
[2017-02-20] MEDS ORDERED: FUROSEMIDE 40 MG TABLET (FP) ONE (19:21)
[2017-02-20] MEDS ORDERED: guaiFENesin/D-METHORPHAN HB 10 ML UNIT-DOSE CUPS ONE (20:31)
[2017-02-20] MEDS: guaiFENesin 200 MG/10 ML 10 ML UNIT-DOSE CUPS PO PRN (20:36)
[2017-02-20] MEDS ORDERED: methylPREDNISolone NA SUCC 40 MG/1 ML VIAL ONE (21:09)
[2017-02-20] MEDS ORDERED: HEPARIN NA (PORCINE) 5,000 UNITS/ML 1ML VIAL ONE (21:09)
[2017-02-20] MEDS: HEPARIN NA (PORCINE) 5,000 UNITS/ML 1ML VIAL SQ SCH (21:30)
[2017-02-20] MEDS ORDERED: INSULIN DETEMIR 100 UNITS/ML MDV SQ ONE (22:53)
--- NOTE | 2017-02-21 00:46 | CONSULT ---
Consult Consult Specialty:: endocrine Referred by:: dr.saba leger Reason for Consultation:: diabetes mellitus - History of Present Illness Chief Complaint: difficulty breathing cough and congestion with chest pain History of Present Illness: 66 year old female with pmhx of DM, HTN, cho and obesity who presents to the ER with shortness of breath and cough. She also complains of wheezing. She has had a productive cough with yellow sputum. She was found to have elevated bnp and chf on ct,with clinical excarcerbation of copd, with hypoxemia noted o2 sat low as 87%, she has had difficulty controlling blood sugars,admitting to dietary difficulty with adherence to low carb diet - History Source History Provided By: Patient - Past Medical History Cardio/Vascular: Yes: HTN, Hyperlipdemia Pulmonary: Yes: Asthma, Sleep Apnea Gastrointestinal: Yes: GERD Musculoskeletal: Yes: Osteoarthritis Endocrine: Yes: Diabetes Mellitus - Alcohol/Substance Use Hx Alcohol Use: No - Smoking History Smoking history: Never smoked Have you smoked in the past 12 months: No Aproximately how many cigarettes per day: 0 Home Medications - Allergies Allergies/Adverse Reactions: Allergies Allergy/AdvReac Type Severity Reaction Status Date / Time Penicillins Allergy Difficulty Verified 02/20/17 09:38 Breathing - Home Medications Home Medications: Ambulatory Orders Aspirin [ASA -] 81 mg PO DAILY 08/02/12 Mometasone Furoate [Asmanex 220Mcg -] 2 inh IH DAILY PRN 08/02/12 Atorvastatin Ca [Lipitor] 40 mg PO HS #30 tablet 01/02/15 Insulin (Levemir) [Levemir Flexpen -] 30 units SQ DAILY@0700 07/03/16 Insulin Lispro Protamin/Lispro [Humalog Mix 50-50 Vial] 15 unit SQ BID 07/03/16 Review of Systems - Review of Systems Constitutional: reports: Weakness Eyes: reports: No Symptoms HENT: reports: No Symptoms Neck: reports: No Symptoms Cardiovascular: reports: Shortness of Breath Respiratory: reports: Exercise Intolerance, SOB on Exertion Gastrointestinal: reports: Bloating Genitourinary: reports: No Symptoms Breasts: reports: No Symptoms Reported Musculoskeletal: reports: Muscle Pain, Muscle Cramps, Muscle Weakness Integumentary: reports: No Symptoms Neurological: reports: No Symptoms Endocrine: reports: Unexplained Weight Gain Physical Exam Vital Signs: Vital Signs Temperature 98.3 F 02/20/17 14:52 Pulse Rate 86 02/20/17 22:57 Respiratory Rate 24 02/20/17 22:57 Blood Pressure 132/68 02/20/17 22:57 O2 Sat by Pulse Oximetry (%) 100 02/20/17 23:05 Constitutional: Yes: Anxious Eyes: Yes: EOM Intact HENT: Yes: Normocephalic Neck: Yes: Trachea Midline Cardiovascular: Yes: Tachycardia Respiratory: Yes: On Nasal O2, Rhonchi, SOB, Tachypnea, Wheezes Gastrointestinal: Yes: Normal Bowel Sounds ...Rectal Exam: Yes: Deferred Renal/: Yes: WNL Breast(s): Yes: WNL Musculoskeletal: Yes: WNL Extremities: Yes: WNL Edema: No Integumentary: Yes: WNL Neurological: Yes: Alert, Oriented Labs: CBC, BMP 02/20/17 10:10 02/20/17 10:10 Problem List - Problems (1) Type 2 diabetes mellitus with other diabetic arthropathy Code(s): E11.618 - TYPE 2 DIABETES MELLITUS WITH OTHER DIABETIC ARTHROPATHY (2) Type 2 diabetes mellitus with diabetic neuropathic arthropathy Code(s): E11.610 - TYPE 2 DIABETES MELLITUS W DIABETIC NEUROPATHIC ARTHROPATHY (3) Acute hypoxemic respiratory failure Code(s): J96.01 - ACUTE RESPIRATORY FAILURE WITH HYPOXIA (4) Elevated troponin Code(s): R74.8 - ABNORMAL LEVELS OF OTHER SERUM ENZYMES (5) Hyperkalemia Code(s): E87.5 - HYPERKALEMIA (6) Shortness of breath Code(s): R06.02 - SHORTNESS OF BREATH (7) Atypical chest pain Code(s): R07.89 - OTHER CHEST PAIN (8) Chest pain Code(s): R07.9 - CHEST PAIN, UNSPECIFIED Qualifiers: Chest pain type: intercostal pain Qualified Code(s): R07.82 - Intercostal pain Assessment/Plan Current Active Problems Acute hypoxemic respiratory failure (Acute) Elevated troponin (Acute) Hyperkalemia (Acute) Pneumonia (Acute) Shortness of breath (Acute) diabetes mellitus hyperglycemia morbid obesity htn ashd Abnormal Lab Results 02/20/17 02/20/17 02/20/17 10:10 10:10 10:10 RBC 3.22 L Hgb 8.8 L D Hct 27.4 L PT with INR 12.40 H PTT (Actin FS) 26.3 L VBG pH 7.31 L Sodium Potassium BUN Creatinine Random Glucose Calcium AST Creatine Kinase Troponin I B-Natriuretic Peptide Albumin Urine Protein Urine Glucose (UA) Ur Leukocyte Esterase 02/20/17 02/20/17 10:10 14:00 RBC Hgb Hct PT with INR PTT (Actin FS) VBG pH Sodium 135 L Potassium 5.6 H D BUN 26 H Creatinine 1.1 H D Random Glucose 251 H D Calcium 8.4 L AST 41 H D Creatine Kinase 523 H Troponin I 0.07 H B-Natriuretic Peptide 939.36 H Albumin 2.6 L Urine Protein 3+ H D Urine Glucose (UA) 2+ H Ur Leukocyte Esterase Trace H Laboratory Results - last 24 hr 02/20/17 02/20/17 02/20/17 10:10 10:10 10:10 WBC 7.2 RBC 3.22 L Hgb 8.8 L D Hct 27.4 L MCV 85.0 MCH 27.3 MCHC 32.2 RDW 15.4 Plt Count 192 D MPV 10.6 Neutrophils % 73.3 Lymphocytes % 16.0 D Monocytes % 9.1 Eosinophils % 0.8 Basophils % 0.8 PT with INR 12.40 H INR 1.10 PTT (Actin FS) 26.3 L VBG pH 7.31 L POC VBG pCO2 46.7 POC VBG pO2 45.3 Mixed VBG HCO3 22.9 Sodium Potassium Chloride Carbon Dioxide Anion Gap BUN Creatinine Creat Clearance w eGFR Random Glucose Lactic Acid Calcium Total Bilirubin AST ALT Alkaline Phosphatase Creatine Kinase Creatine Kinase Index CK-MB (CK-2) Troponin I B-Natriuretic Peptide Total Protein Albumin Urine Color Urine Appearance Urine pH Ur Specific [place] Urine Protein Urine Glucose (UA) Urine Ketones Urine Blood Urine Nitrite Urine Bilirubin Urine Urobilinogen Ur Leukocyte Esterase Urine WBC (Auto) Urine RBC (Auto) Ur Epithelial Cells Hyaline Casts Granular Casts Urine Mucus Blood Type Antibody Screen 02/20/17 02/20/17 02/20/17 10:10 10:10 10:10 WBC RBC Hgb Hct MCV MCH MCHC RDW Plt Count MPV Neutrophils % Lymphocytes % Monocytes % Eosinophils % Basophils % PT with INR INR PTT (Actin FS) VBG pH POC VBG pCO2 POC VBG pO2 Mixed VBG HCO3 Sodium 135 L Potassium 5.6 H D Chloride 99 Carbon Dioxide 28 Anion Gap 8 BUN 26 H Creatinine 1.1 H D Creat Clearance w eGFR 49.54 Random Glucose 251 H D Lactic Acid 1.5 Calcium 8.4 L Total Bilirubin 0.4 D AST 41 H D ALT 26 D Alkaline Phosphatase 64 Creatine Kinase 523 H Creatine Kinase Index 0.2 CK-MB (CK-2) 1.150 Troponin I 0.07 H B-Natriuretic Peptide 939.36 H Total Protein 6.9 Albumin 2.6 L Urine Color Urine Appearance Urine pH Ur Specific [place] Urine Protein Urine Glucose (UA) Urine Ketones Urine Blood Urine Nitrite Urine Bilirubin Urine Urobilinogen Ur Leukocyte Esterase Urine WBC (Auto) Urine RBC (Auto) Ur Epithelial Cells Hyaline Casts Granular Casts Urine Mucus Blood Type O POSITIVE Antibody Screen Negative 02/20/17 02/20/17 10:15 14:00 WBC RBC Hgb Hct MCV MCH MCHC RDW Plt Count MPV Neutrophils % Lymphocytes % Monocytes % Eosinophils % Basophils % PT with INR INR PTT (Actin FS) VBG pH POC VBG pCO2 POC VBG pO2 Mixed VBG HCO3 Sodium Potassium Chloride Carbon Dioxide Anion Gap BUN Creatinine Creat Clearance w eGFR Random Glucose Lactic Acid Calcium Total Bilirubin AST ALT Alkaline Phosphatase Creatine Kinase Creatine Kinase Index CK-MB (CK-2) Troponin I B-Natriuretic Peptide Cancelled Total Protein Albumin Urine Color Dkyellow Urine Appearance Cloudy Urine pH 5.0 Ur Specific [place] 1.025 Urine Protein 3+ H D Urine Glucose (UA) 2+ H Urine Ketones Negative Urine Blood Negative Urine Nitrite Negative Urine Bilirubin Negative Urine Urobilinogen Negative Ur Leukocyte Esterase Trace H Urine WBC (Auto) 10 Urine RBC (Auto) 7 Ur Epithelial Cells Many Hyaline Casts 7 Granular Casts 21 Urine Mucus Few Blood Type Antibody Screen plan: bgm qid novolog insulin doses levemir 45 unit am levemir 20 iu hs check hba1c
[2017-02-21] MEDS ORDERED: INSULIN (NOVOLOG) ASPART 100 UNITS/ML 10ML VIAL SQ ONE ×2 (01:15→18:15)
[2017-02-21 01:54] VITALS: BMI 45.8
[2017-02-21] MEDS: ALBUTEROL SO4 2.5/IPRATROPIUM 0.5 INH SOL 3 ML VIAL.NEB. NEB SCH ×6 (02:50→21:50)
[2017-02-21] MEDS: methylPREDNISolone NA SUCC 40 MG/1 ML VIAL IVPUSH SCH ×4 (03:10→21:15)
[2017-02-21] MEDS ORDERED: INSULIN (NOVOLOG) ASPART 100 UNITS/ML 10ML VIAL ONE (06:27)
[2017-02-21] MEDS: INSULIN SLIDING SCALE (NOVOLOG) 1 VIAL SQ SCH ×3 (06:29→21:23)
[2017-02-21] MEDS ORDERED: INSULIN DETEMIR 100 UNITS/ML MDV SQ SCH (07:00)
[2017-02-21 07:20] LABS: ALBUMIN 2.7 g/dl (3.4-5.0); ANION GAP 7 (8-16); CALCIUM 8.8 mg/dL (8.5-10.1); CO2 31 mmol/L (21-32); GLUCOSE,RANDOM 248 mg/dL (74-106)
[2017-02-21 07:25] LABS: CREATININE 1.3 mg/dL (0.55-1.02); SGPT/ALT 26 U/L (12-78); TOT PROT 6.9 g/dl (6.4-8.2)
[2017-02-21 07:29] LABS: BASOPHIL 0.3 % (0-2.0); MCH 27.7 pg (25.7-33.7); MCHC 32.7 g/dl (32.0-36.0); MEAN CELL VOLUME 84.7 fl (80-96); MEAN PLT VOLUME 10.4 fl (7.5-11.1); NEUTROPHILS 86.2 % (42.8-82.8); PLATELET COUNT 191 K/MM3 (134-434); RDW 15.2 % (11.6-15.6); WHITE BLOOD COUNT 7.9 K/mm3 (4.0-10.0)
[2017-02-21 08:20] LABS: ALK PHOS 63 U/L (45-117); BILIRUBIN,TOTAL 0.2 mg/dL (0.2-1.0); CHOLESTEROL 252 mg/dL (50-200); CPK 791 IU/L (26-192); SGOT/AST 22 U/L (15-37)
[2017-02-21] MEDS: guaiFENesin 200 MG/10 ML 10 ML UNIT-DOSE CUPS PO PRN (08:35)
--- NOTE | 2017-02-21 08:40 | PN ---
Progress Note, Physician - Current Medication List Current Medications: Active Medications Acetaminophen (Tylenol -) 650 mg PO Q4H PRN PRN Reason: FEVER OR PAIN Albuterol/Ipratropium (Duoneb -) 1 amp NEB Q4H [facility] Last Admin: 02/21/17 06:29 Dose: 1 amp Furosemide (Lasix -) 40 mg PO DAILY [facility] Guaifenesin (Robitussin -) 10 ml PO Q4H PRN PRN Reason: COUGH Last Admin: 02/20/17 20:36 Dose: 10 ml Heparin Sodium (Porcine) (Heparin -) 5,000 unit SQ BID [facility] Last Admin: 02/20/17 21:30 Dose: 5,000 unit Levofloxacin (Levaquin 500 Mg Premixed Ivpb -) 500 mg in 100 mls @ 100 mls/hr IVPB DAILY [facility] Insulin Aspart (Novolog Vial Sliding Scale -) 1 vial SQ ACHS ALEE PRN Reason: Protocol Last Admin: 02/21/17 06:29 Dose: 2 units Insulin Detemir (Levemir Vial) 20 units SQ HS [facility] Last Admin: 02/20/17 22:55 Dose: 20 unit Insulin Detemir (Levemir Vial) 45 units SQ AM [facility] Last Admin: 02/21/17 06:28 Dose: 45 units Methylprednisolone Sodium Succinate (Solu-Medrol -) 40 mg IVPUSH Q6H-IV [facility] Last Admin: 02/21/17 03:10 Dose: 40 mg - Objective Vital Signs: Vital Signs Temperature 98 F 02/21/17 06:00 Pulse Rate 77 02/21/17 06:00 Respiratory Rate 24 02/21/17 06:00 Blood Pressure 144/71 02/21/17 06:00 O2 Sat by Pulse Oximetry (%) 98 02/21/17 00:40 Cardiovascular: Yes: Tachycardia, S1, S2 Respiratory: Yes: Diminished, Rhonchi, Wheezes Gastrointestinal: Yes: Normal Bowel Sounds, Soft Edema: LLE: Trace, RLE: Trace Labs: CBC, BMP 02/21/17 06:30 02/21/17 06:30 INR, PTT INR 1.10 (0.82-1.09) 02/20/17 10:10 Assessment/Plan - Problems (1) Pneumonia Assessment/Plan: iv abx CT chest --BILATERAL INFILTRATES pulm and id eval noted oxygen Code(s): J18.9 - PNEUMONIA, UNSPECIFIED ORGANISM Qualifiers: Pneumonia type: due to unspecified organism Laterality: bilateral Lung location: unspecified part of lung Qualified Code(s): J18.9 - Pneumonia, unspecified organism (2) Shortness of breath Assessment/Plan: possible asthma exacerbation with underlying infection duonebs solumedrol oxygen pulm eval echo cardio eval Code(s): R06.02 - SHORTNESS OF BREATH (3) Cough Assessment/Plan: see above Code(s): R05 - COUGH (4) Diabetes mellitus, insulin dependent (IDDM), uncontrolled Assessment/Plan: bgm sliding scale levemir [id number] Code(s): E10.65 - TYPE 1 DIABETES MELLITUS WITH HYPERGLYCEMIA (5) Elevated troponin Assessment/Plan: tele echo trend CE cardio eval noted lipid panel Code(s): R74.8 - ABNORMAL LEVELS OF OTHER SERUM ENZYMES
[2017-02-21 08:48] LABS: TROPONIN I 0.08 ng/ml (0.00-0.05)
--- NOTE | 2017-02-21 10:19 | PN ---
Progress Note (short form) - Note Progress Note: ID consult dictated 66 year old obese female with asthma with one week of uri symptoms with chills and cough stared wheezing and came to ED yesterday ct scan of chest with bilateral infiltrates no travel no sick contacts no pets was out on Monday, got sick on Monday also with constipation for last 4 days no vaccines?- she refuses them bilateral infiltrates-continue levaquin for CAP acute hypoxemic respiratory failure asthma ?CHF thyroid nodule anemia (new?) HORACE penicillin allergy continue levaquin influenza screen urinary antigens tfts anemia screen esr/crp spep anca-screen for pulmonary/renal disease renal/pulmonary followup Problem List - Problems (1) Pneumonia Code(s): J18.9 - PNEUMONIA, UNSPECIFIED ORGANISM Qualifiers: Pneumonia type: due to unspecified organism Laterality: bilateral Lung location: unspecified part of lung Qualified Code(s): J18.9 - Pneumonia, unspecified organism (2) Acute hypoxemic respiratory failure Code(s): J96.01 - ACUTE RESPIRATORY FAILURE WITH HYPOXIA (3) HORACE (acute kidney injury) Code(s): N17.9 - ACUTE KIDNEY FAILURE, UNSPECIFIED (4) Anemia Code(s): D64.9 - ANEMIA, UNSPECIFIED (5) Penicillin allergy Code(s): Z88.0 - ALLERGY STATUS TO PENICILLIN
--- NOTE | 2017-02-21 10:26 | EKG ---
Test Reason : Blood Pressure : / mmHG Vent. Rate : 080 BPM Atrial Rate : 080 BPM P-R Int : 148 ms QRS Dur : 112 ms QT Int : 392 ms P-R-T Axes : 068 -39 112 degrees QTc Int : 452 ms NORMAL SINUS RHYTHM LEFT AXIS DEVIATION LEFT VENTRICULAR HYPERTROPHY WITH REPOLARIZATION ABNORMALITY ABNORMAL ECG WHEN COMPARED WITH ECG OF 20-FEB-2017 09:45, NO SIGNIFICANT CHANGE WAS FOUND Confirmed by ANGELY PIKE, NEELAM ([id number]) on 02/21/2017 10:26:13 AM Referred By: Florian PEREZ Confirmed By:NEELAM AU MD
[2017-02-21] MEDS: LEVOFLOXACIN 500 MG IVPB 500 MG/100 ML BAG IVPB SCH (10:35)
[2017-02-21] MEDS: HEPARIN NA (PORCINE) 5,000 UNITS/ML 1ML VIAL SQ SCH ×2 (10:35→21:37)
[2017-02-21] MEDS: FUROSEMIDE 40 MG TABLET (FP) PO SCH (10:35)
--- NOTE | 2017-02-21 11:08 | PN ---
Progress Note, Physician History of Present Illness: PULMONARY ALERT,OOB-CHAIR,LESS DYSPNEIC,+COUGH - Current Medication List Current Medications: Active Medications Acetaminophen (Tylenol -) 650 mg PO Q4H PRN PRN Reason: FEVER OR PAIN Albuterol/Ipratropium (Duoneb -) 1 amp NEB Q4H [facility] Last Admin: 02/21/17 06:29 Dose: 1 amp Furosemide (Lasix -) 40 mg PO DAILY [facility] Last Admin: 02/21/17 10:35 Dose: 40 mg Guaifenesin (Robitussin -) 10 ml PO Q4H PRN PRN Reason: COUGH Last Admin: 02/21/17 08:35 Dose: 10 ml Heparin Sodium (Porcine) (Heparin -) 5,000 unit SQ BID [facility] Last Admin: 02/21/17 10:35 Dose: 5,000 unit Levofloxacin (Levaquin 500 Mg Premixed Ivpb -) 500 mg in 100 mls @ 100 mls/hr IVPB DAILY [facility] Last Admin: 02/21/17 10:35 Dose: 100 mls/hr Insulin Aspart (Novolog Vial Sliding Scale -) 1 vial SQ ACHS [facility] PRN Reason: Protocol Last Admin: 02/21/17 06:29 Dose: 2 units Insulin Detemir (Levemir Vial) 20 units SQ HS [facility] Last Admin: 02/20/17 22:55 Dose: 20 unit Insulin Detemir (Levemir Vial) 45 units SQ AM [facility] Last Admin: 02/21/17 06:28 Dose: 45 units Methylprednisolone Sodium Succinate (Solu-Medrol -) 40 mg IVPUSH Q6H-IV [facility] Last Admin: 02/21/17 08:50 Dose: 40 mg - Objective Vital Signs: Vital Signs Temperature 98.2 F 02/21/17 09:00 Pulse Rate 82 02/21/17 09:00 Respiratory Rate 22 02/21/17 09:00 Blood Pressure 166/88 02/21/17 09:00 O2 Sat by Pulse Oximetry (%) 98 02/21/17 00:40 Constitutional: Yes: Well Nourished, Calm, Obese Eyes: Yes: Occular Prosthesis HENT: Yes: WNL Neck: Yes: WNL Cardiovascular: Yes: Regular Rate and Rhythm, S1, S2 Respiratory: Yes: Rhonchi (FEW RHONCHI) Gastrointestinal: Yes: Normal Bowel Sounds, Soft Extremities: Yes: WNL Edema: Yes Labs: CBC, BMP 02/21/17 06:30 02/21/17 06:30 INR, PTT INR 1.10 (0.82-1.09) 02/20/17 10:10 - ....Imaging Cat Scan: Report Reviewed, Image Reviewed Problem List - Problems (1) Acute hypoxemic respiratory failure Code(s): J96.01 - ACUTE RESPIRATORY FAILURE WITH HYPOXIA (2) Pneumonia Code(s): J18.9 - PNEUMONIA, UNSPECIFIED ORGANISM Qualifiers: Pneumonia type: due to unspecified organism Laterality: bilateral Lung location: unspecified part of lung Qualified Code(s): J18.9 - Pneumonia, unspecified organism (3) Shortness of breath Code(s): R06.02 - SHORTNESS OF BREATH (4) Chest pain Code(s): R07.9 - CHEST PAIN, UNSPECIFIED Qualifiers: Chest pain type: intercostal pain Qualified Code(s): R07.82 - Intercostal pain (5) Cough Code(s): R05 - COUGH (6) Diabetes mellitus, insulin dependent (IDDM), uncontrolled Code(s): E10.65 - TYPE 1 DIABETES MELLITUS WITH HYPERGLYCEMIA (7) Dizziness Code(s): R42 - DIZZINESS AND GIDDINESS (8) HLD (hyperlipidemia) Code(s): E78.5 - HYPERLIPIDEMIA, UNSPECIFIED (9) Hypertension Code(s): I10 - ESSENTIAL (PRIMARY) HYPERTENSION Assessment/Plan IMP ACUTE HYPOXEMIC RESPIRATORY FAILURE IMPROVING PNEUMONIA ASTHMA HORACE ELEVATED TROPONIN LEVEL ? CHF DM OSAS PLAN INHALED BRONCHODILATORS O2 ANTIBIOTICS STEROIDS LASIX CULTURES F/U CHEST X-RAYS MONITOR LYTES,RENAL FUNCTION TREND TROPONIN DR MANN Problem List - Problems (1) Acute hypoxemic respiratory failure Code(s): J96.01 - ACUTE RESPIRATORY FAILURE WITH HYPOXIA (2) Pneumonia Code(s): J18.9 - PNEUMONIA, UNSPECIFIED ORGANISM Qualifiers: Pneumonia type: due to unspecified organism Laterality: bilateral Lung location: unspecified part of lung Qualified Code(s): J18.9 - Pneumonia, unspecified organism (3) Shortness of breath Code(s): R06.02 - SHORTNESS OF BREATH (4) Chest pain Code(s): R07.9 - CHEST PAIN, UNSPECIFIED Qualifiers: Chest pain type: intercostal pain Qualified Code(s): R07.82 - Intercostal pain (5) Cough Code(s): R05 - COUGH (6) Diabetes mellitus, insulin dependent (IDDM), uncontrolled Code(s): E10.65 - TYPE 1 DIABETES MELLITUS WITH HYPERGLYCEMIA (7) Dizziness Code(s): R42 - DIZZINESS AND GIDDINESS (8) HLD (hyperlipidemia) Code(s): E78.5 - HYPERLIPIDEMIA, UNSPECIFIED (9) Hypertension Code(s): I10 - ESSENTIAL (PRIMARY) HYPERTENSION
--- NOTE | 2017-02-21 13:30 | CONS ---
INFECTIOUS DISEASE CONSULTATION DATE OF CONSULTATION: DATE OF DICTATION: 02/21/2017 REQUESTING PHYSICIAN: Rigo Payne MD HISTORY OF PRESENT ILLNESS: This is a 66-year-old woman with a history of diabetes, hyperlipidemia, and also a history of asthma with a 1-week history of URI symptoms, worsening cough, and then, she had started wheezing. She notes chills at home, is not sure if she had fever. She was given an oral antibiotic by Dr. Philip, which she took for 3 days. She does not know what she took. She denies any sick contacts. She denies any pets at home. There has been no recent travel. Her last trip was to the [facility] in the summer. She is , and she lives at home with her family. She does recall that on Monday she attended a family event. It was very hot inside. She went outside several times and thinks she caught a chill from that. She reports feeling well prior to this event and actually was well for it and got sick the next day. There is no nausea or vomiting. She has been constipated now for 4 days. She has no dysuria. She has no chest pain or abdominal pain. In the emergency room, she was noted to be hypoxic with a room air O2 saturation at 87%. She had a CAT scan of her chest done that revealed bilateral bronchial wall thickening and centrilobular nodules consistent with an infectious inflammatory process. She was started on Levaquin. I am asked to see her for further evaluation. PAST MEDICAL HISTORY: Notable for hypertension, hyperlipidemia, asthma, sleep apnea, GERD, osteoarthritis, and diabetes. ALLERGIES: She is allergic to PENICILLIN which causes swelling and difficulty breathing. MEDICATIONS AT HOME: Include aspirin, Asmanex, atorvastatin, and insulin. FAMILY HISTORY: Unremarkable. SOCIAL HISTORY: She is . She lives at home with her family. There is no history of any cigarette use. She is originally from [place]. Her last trip to [place] was over a year ago. They have no pets. She has had no sick contacts. REVIEW OF SYSTEMS: She reports her weight has been fluctuating up and down and that this wheezing is new. She does report a history of asthma for many years, and she notes the constipation which she has had now for the last 4 days. PHYSICAL EXAMINATION: General: She is awake and alert. Vital Signs: She weighs 250 pounds. Her temperature is 98.2, pulse of 82, blood pressure 166/88, respiratory rate is 22. She is saturating 98% on 3 L. HEENT: She is normocephalic. Her eyes are anicteric. She has no thrush. She has no conjunctival hemorrhages. Neck/Back: She has a small, I think, swelling in her dorsocervical fat pad. She has some diffuse edema of her entire back. Lungs: Diffuse wheezing throughout. Heart: Regular rate and rhythm. Abdomen: Soft, nontender. Extremities: Trace edema. LABORATORY DATA: White count is 7.9, hemoglobin is 8.6 with platelets of 191. INR is 1.1. BUN is 38 and creatinine 1.3. CK is 791 with a troponin of 0.08. Hemoglobin A1c is 10.7. Her albumin is 2.7. Urinalysis has 3+ protein, 2+ glucose, with 10 white cells and 21 granular casts. CAT scan findings are as previously stated. In summary, this is a 66-year-old woman admitted with what she reports as acute symptoms for a week of progressive shortness of breath and wheezing, abnormal chest x-ray, bilateral infiltrates, acute hypoxemic respiratory failure in the setting of asthma, possible heart failure. CAT scan as well shows multinodular thyroid nodules. Anemia, unclear if it is old or new. Acute kidney injury with active urinary sediment and a PENICILLIN allergy. I would continue Levaquin given her PENICILLIN allergy, would influenza screen her, and obtain urinary antigens. Blood cultures have been sent already. Anemia workup has been ordered. I would order a SPEP as well, and I would order a sedimentation rate, CRP, and ANCA's given the renal component to her complaints, as well as thyroid function tests. Awaiting renal and pulmonary followup. Further recommendations to follow. Ant CALLES/[id number]
--- NOTE | 2017-02-21 14:11 | PN ---
Progress Note, Physician Chief Complaint: less sob. No chest pain tele negative History of Present Illness: She is a 66 year old female, history of asthma, NIDDM, HTN, chol, who presents with SOB, nasal congestion, chest tightness, and chills that started on 5 days ago, some fever now better. Also orthopnea and edema. No chest pain, the tightness was post tussive and somewhat exertional for the past few days. No palpitations dizziness or syncope. CT scan with bilateral pneumonia, getting abx. - Current Medication List Current Medications: Active Medications Acetaminophen (Tylenol -) 650 mg PO Q4H PRN PRN Reason: FEVER OR PAIN Albuterol/Ipratropium (Duoneb -) 1 amp NEB Q4H [facility] Last Admin: 02/21/17 10:20 Dose: 1 amp Furosemide (Lasix -) 40 mg PO DAILY [facility] Last Admin: 02/21/17 10:35 Dose: 40 mg Guaifenesin (Robitussin -) 10 ml PO Q4H PRN PRN Reason: COUGH Last Admin: 02/21/17 08:35 Dose: 10 ml Heparin Sodium (Porcine) (Heparin -) 5,000 unit SQ BID [facility] Last Admin: 02/21/17 10:35 Dose: 5,000 unit Levofloxacin (Levaquin 500 Mg Premixed Ivpb -) 500 mg in 100 mls @ 100 mls/hr IVPB DAILY [facility] Last Admin: 02/21/17 10:35 Dose: 100 mls/hr Insulin Aspart (Novolog Vial Sliding Scale -) 1 vial SQ ACHS [facility] PRN Reason: Protocol Last Admin: 02/21/17 12:11 Dose: 8 units Insulin Detemir (Levemir Vial) 20 units SQ HS [facility] Last Admin: 02/20/17 22:55 Dose: 20 unit Insulin Detemir (Levemir Vial) 45 units SQ AM [facility] Last Admin: 02/21/17 06:28 Dose: 45 units Methylprednisolone Sodium Succinate (Solu-Medrol -) 40 mg IVPUSH Q6H-IV [facility] Last Admin: 02/21/17 08:50 Dose: 40 mg - Objective Vital Signs: Vital Signs Temperature 98.2 F 02/21/17 09:00 Pulse Rate 82 02/21/17 09:00 Respiratory Rate 22 02/21/17 09:00 Blood Pressure 166/88 02/21/17 09:00 O2 Sat by Pulse Oximetry (%) 98 02/21/17 09:00 Constitutional: Yes: No Distress, Calm Eyes: Yes: Conjunctiva Clear, EOM Intact HENT: Yes: Normocephalic Neck: Yes: Trachea Midline Cardiovascular: Yes: Regular Rate and Rhythm Respiratory: Yes: Rhonchi (bilateral) Gastrointestinal: Yes: Normal Bowel Sounds, Soft, Abdomen, Obese Musculoskeletal: Yes: WNL Extremities: Yes: WNL Edema: No Peripheral Pulses WNL: Yes Labs: CBC, BMP 02/21/17 06:30 02/21/17 06:30 INR, PTT INR 1.10 (0.82-1.09) 02/20/17 10:10 Problem List - Problems (1) Shortness of breath Assessment/Plan: mild elevation of bnp. Echo to assess LV function. Check CT scan. Continue PO lasix 40 mg daily. Code(s): R06.02 - SHORTNESS OF BREATH (2) Atypical chest pain Assessment/Plan: Her troponin is minimally elevated, will follow cardiac enzymes, likely due to hypoxia from pneumonia. Defer ischemia workup for now. asa and hold beta kayli for now due to wheezing. Code(s): R07.89 - OTHER CHEST PAIN
--- NOTE | 2017-02-21 14:56 | PN ---
Progress Note, Physician History of Present Illness: Pt seen and examined at bedside. She is awake and alert. She feels that her breathing is improved from yesterday. She still has cough and wheezing. - Current Medication List Current Medications: Active Medications Acetaminophen (Tylenol -) 650 mg PO Q4H PRN PRN Reason: FEVER OR PAIN Albuterol/Ipratropium (Duoneb -) 1 amp NEB Q4H [facility] Last Admin: 02/21/17 14:51 Dose: 1 amp Furosemide (Lasix -) 40 mg PO DAILY [facility] Last Admin: 02/21/17 10:35 Dose: 40 mg Guaifenesin (Robitussin -) 10 ml PO Q4H PRN PRN Reason: COUGH Last Admin: 02/21/17 08:35 Dose: 10 ml Heparin Sodium (Porcine) (Heparin -) 5,000 unit SQ BID [facility] Last Admin: 02/21/17 10:35 Dose: 5,000 unit Levofloxacin (Levaquin 500 Mg Premixed Ivpb -) 500 mg in 100 mls @ 100 mls/hr IVPB DAILY [facility] Last Admin: 02/21/17 10:35 Dose: 100 mls/hr Insulin Aspart (Novolog Vial Sliding Scale -) 1 vial SQ ACHS [facility] PRN Reason: Protocol Last Admin: 02/21/17 12:11 Dose: 8 units Insulin Detemir (Levemir Vial) 20 units SQ HS [facility] Last Admin: 02/20/17 22:55 Dose: 20 unit Insulin Detemir (Levemir Vial) 45 units SQ AM [facility] Last Admin: 02/21/17 06:28 Dose: 45 units Methylprednisolone Sodium Succinate (Solu-Medrol -) 40 mg IVPUSH Q6H-IV [facility] Last Admin: 02/21/17 14:44 Dose: 40 mg - Objective Vital Signs: Vital Signs Temperature 98.2 F 02/21/17 09:00 Pulse Rate 82 02/21/17 09:00 Respiratory Rate 22 02/21/17 09:00 Blood Pressure 166/88 02/21/17 09:00 O2 Sat by Pulse Oximetry (%) 98 02/21/17 09:00 Constitutional: Yes: Calm Eyes: Yes: Conjunctiva Clear HENT: Yes: Atraumatic Cardiovascular: Yes: S1, S2 Respiratory: Yes: On Nasal O2, Wheezes Gastrointestinal: Yes: Soft, Abdomen, Obese Genitourinary: Yes: WNL Musculoskeletal: Yes: WNL Edema: Yes Edema: LLE: 1+, RLE: 1+ Neurological: Yes: Oriented Psychiatric: Yes: Oriented Labs: CBC, BMP 02/21/17 06:30 02/21/17 06:30 INR, PTT INR 1.10 (0.82-1.09) 02/20/17 10:10 - ....Imaging Cat Scan: Report Reviewed Problem List - Problems (1) Hyperkalemia Code(s): E87.5 - HYPERKALEMIA (2) Acute hypoxemic respiratory failure Code(s): J96.01 - ACUTE RESPIRATORY FAILURE WITH HYPOXIA (3) Pneumonia Code(s): J18.9 - PNEUMONIA, UNSPECIFIED ORGANISM Qualifiers: Pneumonia type: due to unspecified organism Laterality: bilateral Lung location: unspecified part of lung Qualified Code(s): J18.9 - Pneumonia, unspecified organism (4) Shortness of breath Code(s): R06.02 - SHORTNESS OF BREATH (5) Diabetes mellitus, insulin dependent (IDDM), uncontrolled Code(s): E10.65 - TYPE 1 DIABETES MELLITUS WITH HYPERGLYCEMIA Assessment/Plan Current Medications Generic Name Dose Route Start Last Admin Trade Name Freq PRN Reason Stop Dose Admin Acetaminophen 650 mg 02/20/17 14:18 Tylenol - PO Q4H PRN FEVER OR PAIN Albuterol/Ipratropium 1 amp 02/20/17 14:30 02/21/17 14:51 Duoneb - NEB 1 amp Q4H [facility] Administration Furosemide 40 mg 02/21/17 10:00 02/21/17 10:35 Lasix - PO 40 mg DAILY [facility] Administration Guaifenesin 10 ml 02/20/17 14:19 02/21/17 08:35 Robitussin - PO 10 ml Q4H PRN Administration COUGH Heparin Sodium (Porcine) 5,000 unit 02/20/17 22:00 02/21/17 10:35 Heparin - SQ 5,000 unit BID [facility] Administration Levofloxacin 500 mg in 100 mls @ 100 mls/hr 02/21/17 10:00 02/21/17 10:35 Levaquin 500 Mg Premixed Ivpb - IVPB 100 mls/hr DAILY [facility] Administration Insulin Aspart 1 vial 02/20/17 14:30 02/21/17 12:11 Novolog Vial Sliding Scale - SQ 8 units ACHS [facility] Administration Protocol Insulin Detemir 20 units 02/20/17 14:30 02/20/17 22:55 Levemir Vial SQ 20 unit HS [facility] Administration Insulin Detemir 45 units 02/21/17 07:00 02/21/17 06:28 Levemir Vial SQ 45 units AM [facility] Administration Methylprednisolone Sodium Succinate 40 mg 02/20/17 15:00 02/21/17 14:44 Solu-Medrol - IVPUSH 40 mg Q6H-IV [facility] Administration Laboratory Tests 02/20/17 14:00 Urine Protein 3+ H D Urine Glucose (UA) 2+ H Impression 1. hyperkalemia 2. vascular congestion 3. DM 4. PNA 5. obesity 6. HTN 7. chest pain 8. proteinuria 9. CKD Plan - check urine prt to cr ratio - potassium improved - cont lasix - repeat labs in am - will need renal workup for proteinuria and CKD - will send prelim workup here but pt will need outpt follow up - steroids with taper as tolerated - renal ultrasound - will follow Dr Sahu
[2017-02-21 19:50] LABS: URINE CREATININE 26.9 mg/dL (20-320)
[2017-02-21] MEDS: INSULIN DETEMIR 100 UNITS/ML MDV SQ SCH (21:21)
--- NOTE | 2017-02-22 00:47 | PN ---
Progress Note, Physician Chief Complaint: short of breath sitting in chair History of Present Illness: dm,htn,morbid obesity,admitted with chf,copd cough congestion positive troponins denies cp - Current Medication List Current Medications: Active Medications Acetaminophen (Tylenol -) 650 mg PO Q4H PRN PRN Reason: FEVER OR PAIN Albuterol/Ipratropium (Duoneb -) 1 amp NEB Q4H [facility] Last Admin: 02/21/17 21:50 Dose: 1 amp Furosemide (Lasix -) 40 mg PO DAILY [facility] Last Admin: 02/21/17 10:35 Dose: 40 mg Guaifenesin (Robitussin -) 10 ml PO Q4H PRN PRN Reason: COUGH Last Admin: 02/21/17 08:35 Dose: 10 ml Heparin Sodium (Porcine) (Heparin -) 5,000 unit SQ BID [facility] Last Admin: 02/21/17 21:37 Dose: 5,000 unit Levofloxacin (Levaquin 500 Mg Premixed Ivpb -) 500 mg in 100 mls @ 100 mls/hr IVPB DAILY [facility] Last Admin: 02/21/17 10:35 Dose: 100 mls/hr Insulin Aspart (Novolog Vial Sliding Scale -) 1 vial SQ ACHS [facility] PRN Reason: Protocol Last Admin: 02/21/17 21:23 Dose: 17 units Insulin Detemir (Levemir Vial) 45 units SQ AM [facility] Last Admin: 02/21/17 06:28 Dose: 45 units Insulin Detemir (Levemir Vial) 30 units SQ HS [facility] Last Admin: 02/21/17 21:21 Dose: 30 units Methylprednisolone Sodium Succinate (Solu-Medrol -) 40 mg IVPUSH Q6H-IV [facility] Last Admin: 02/21/17 21:15 Dose: 40 mg - Objective Vital Signs: Vital Signs Temperature 98.3 F 02/21/17 22:00 Pulse Rate 81 02/21/17 22:00 Respiratory Rate 22 02/21/17 22:00 Blood Pressure 146/85 02/21/17 22:00 O2 Sat by Pulse Oximetry (%) 98 02/21/17 21:00 Constitutional: Yes: Anxious Eyes: Yes: EOM Intact HENT: Yes: Normocephalic Neck: Yes: Trachea Midline Cardiovascular: Yes: Regular Rate and Rhythm Respiratory: Yes: On Nasal O2, Rales, Rhonchi, SOB, Tachypnea, Wheezes Gastrointestinal: Yes: Abdomen, Obese ...Rectal Exam: Yes: Deferred Genitourinary: Yes: WNL Breast(s): Yes: WNL Musculoskeletal: Yes: Joint Stiffness, Muscle Weakness Extremities: Yes: WNL Edema: No Peripheral Pulses WNL: Yes Neurological: Yes: Alert, Oriented Labs: CBC, BMP 02/21/17 06:30 02/21/17 06:30 INR, PTT INR 1.10 (0.82-1.09) 02/20/17 10:10 Problem List - Problems (1) Type 2 diabetes mellitus with other diabetic arthropathy Code(s): E11.618 - TYPE 2 DIABETES MELLITUS WITH OTHER DIABETIC ARTHROPATHY (2) Type 2 diabetes mellitus with diabetic neuropathic arthropathy Code(s): E11.610 - TYPE 2 DIABETES MELLITUS W DIABETIC NEUROPATHIC ARTHROPATHY (3) Acute hypoxemic respiratory failure Code(s): J96.01 - ACUTE RESPIRATORY FAILURE WITH HYPOXIA (4) Elevated troponin Code(s): R74.8 - ABNORMAL LEVELS OF OTHER SERUM ENZYMES (5) Hyperkalemia Code(s): E87.5 - HYPERKALEMIA (6) Shortness of breath Code(s): R06.02 - SHORTNESS OF BREATH (7) Atypical chest pain Code(s): R07.89 - OTHER CHEST PAIN (8) Chest pain Code(s): R07.9 - CHEST PAIN, UNSPECIFIED Qualifiers: Chest pain type: intercostal pain Qualified Code(s): R07.82 - Intercostal pain Assessment/Plan Current Active Problems HORACE (acute kidney injury) (Acute) Acute hypoxemic respiratory failure (Acute) Anemia (Acute) Elevated troponin (Acute) Hyperkalemia (Acute) Penicillin allergy (Acute) Pneumonia (Acute) Shortness of breath (Acute) Type 2 diabetes mellitus with diabetic neuropathic arthropathy (Acute) Type 2 diabetes mellitus with other diabetic arthropathy (Acute) Abnormal Lab Results 02/21/17 02/21/17 02/21/17 06:30 06:30 06:30 RBC 3.12 L Hgb 8.6 L Hct 26.4 L Neutrophils % 86.2 H Lymphocytes % 7.2 L D Anion Gap 7 L BUN 38 H D Creatinine 1.3 H Random Glucose 248 H Hemoglobin A1c % 10.7 H D Creatine Kinase 791 H Troponin I 0.08 H Albumin 2.7 L Triglycerides 162 H D Cholesterol 252 H Total LDL Cholesterol 177 H U Random Total Protein 02/21/17 18:00 RBC Hgb Hct Neutrophils % Lymphocytes % Anion Gap BUN Creatinine Random Glucose Hemoglobin A1c % Creatine Kinase Troponin I Albumin Triglycerides Cholesterol Total LDL Cholesterol U Random Total Protein 132 H Laboratory Results - last 24 hr 02/20/17 02/21/17 02/21/17 21:50 00:54 03:06 WBC RBC Hgb Hct MCV MCH MCHC RDW Plt Count MPV Neutrophils % Lymphocytes % Monocytes % Eosinophils % Basophils % Sodium Potassium Chloride Carbon Dioxide Anion Gap BUN Creatinine Creat Clearance w eGFR POC Glucometer > 400 403 285 Random Glucose Hemoglobin A1c % Calcium Ferritin Total Bilirubin AST ALT Alkaline Phosphatase Creatine Kinase Creatine Kinase Index CK-MB (CK-2) Troponin I Total Protein Albumin Triglycerides Cholesterol Total LDL Cholesterol HDL Cholesterol U Random Total Protein Urine Creatinine Protein/Creatinin Ratio 02/21/17 02/21/17 02/21/17 06:10 06:30 06:30 WBC 7.9 RBC 3.12 L Hgb 8.6 L Hct 26.4 L MCV 84.7 MCH 27.7 MCHC 32.7 RDW 15.2 Plt Count 191 MPV 10.4 Neutrophils % 86.2 H Lymphocytes % 7.2 L D Monocytes % 6.3 Eosinophils % 0.0 D Basophils % 0.3 Sodium 139 Potassium 5.1 Chloride 101 Carbon Dioxide 31 Anion Gap 7 L BUN 38 H D Creatinine 1.3 H Creat Clearance w eGFR 40.86 POC Glucometer 249 Random Glucose 248 H Hemoglobin A1c % Calcium 8.8 Ferritin Total Bilirubin 0.2 D AST 22 D ALT 26 Alkaline Phosphatase 63 Creatine Kinase 791 H Creatine Kinase Index 0.4 CK-MB (CK-2) 3.539 Troponin I 0.08 H Total Protein 6.9 Albumin 2.7 L Triglycerides 162 H D Cholesterol 252 H Total LDL Cholesterol 177 H HDL Cholesterol 43 U Random Total Protein Urine Creatinine Protein/Creatinin Ratio 02/21/17 02/21/17 02/21/17 06:30 06:30 06:30 WBC RBC Hgb Hct MCV MCH MCHC RDW Plt Count MPV Neutrophils % Lymphocytes % Monocytes % Eosinophils % Basophils % Sodium Potassium Chloride Carbon Dioxide Anion Gap BUN Creatinine Creat Clearance w eGFR POC Glucometer Random Glucose Hemoglobin A1c % 10.7 H D Calcium Ferritin Total Bilirubin AST ALT Alkaline Phosphatase Creatine Kinase Cancelled Creatine Kinase Index CK-MB (CK-2) Troponin I Cancelled Total Protein Albumin Triglycerides Cancelled Cholesterol Cancelled Total LDL Cholesterol Cancelled HDL Cholesterol Cancelled U Random Total Protein Urine Creatinine Protein/Creatinin Ratio 02/21/17 02/21/17 02/21/17 06:30 12:10 18:00 WBC RBC Hgb Hct MCV MCH MCHC RDW Plt Count MPV Neutrophils % Lymphocytes % Monocytes % Eosinophils % Basophils % Sodium Potassium Chloride Carbon Dioxide Anion Gap BUN Creatinine Creat Clearance w eGFR POC Glucometer 382 Random Glucose Hemoglobin A1c % Calcium Ferritin 123.944 Total Bilirubin AST ALT Alkaline Phosphatase Creatine Kinase Creatine Kinase Index CK-MB (CK-2) Troponin I Total Protein Albumin Triglycerides Cholesterol Total LDL Cholesterol HDL Cholesterol U Random Total Protein 132 H Urine Creatinine 26.9 Protein/Creatinin Ratio 4.91 plan: while on steroid and resistance evident novolog /30 25units bid levemir 50 units bid
[2017-02-22] MEDS: ALBUTEROL SO4 2.5/IPRATROPIUM 0.5 INH SOL 3 ML VIAL.NEB. NEB SCH ×6 (02:12→22:30)
[2017-02-22] MEDS: methylPREDNISolone NA SUCC 40 MG/1 ML VIAL IVPUSH SCH ×4 (03:05→22:02)
[2017-02-22] MEDS: INSULIN (NOVOLOG MIX 70/30) 100 UNITS/ML MDV SQ SCH ×2 (06:03→17:47)
[2017-02-22] MEDS: INSULIN SLIDING SCALE (NOVOLOG) 1 VIAL SQ SCH ×5 (06:04→22:04)
[2017-02-22 06:06] LABS: SERUM IRON 34 ug/dL (27-139); TOTAL IRON BINDING CAPACITY 241 ug/dL (250-450); UIBC 207 ug/dL (118-369)
[2017-02-22 08:19] LABS: C-REACTIVE PROTEIN 5.5 MG/DL (0.00-0.3)
[2017-02-22 08:30] LABS: THYROID STIMULATING HORMONE 0.18 uIU/ml (0.358-3.74)
[2017-02-22] MEDS ORDERED: BISACODYL 5 MG TABLET.DR (FP) PO ONE (08:30)
--- NOTE | 2017-02-22 08:32 | PN ---
Progress Note, Physician History of Present Illness: STILL WITH COUGH AND SOB--SOME IMPROVEMENT - Current Medication List Current Medications: Active Medications Acetaminophen (Tylenol -) 650 mg PO Q4H PRN PRN Reason: FEVER OR PAIN Albuterol/Ipratropium (Duoneb -) 1 amp NEB Q4H [facility] Last Admin: 02/22/17 05:51 Dose: 1 amp Bisacodyl (Dulcolax -) 10 mg PO ONCE ONE Stop: 02/22/17 08:31 Furosemide (Lasix -) 40 mg PO DAILY [facility] Last Admin: 02/21/17 10:35 Dose: 40 mg Guaifenesin (Robitussin -) 10 ml PO Q4H PRN PRN Reason: COUGH Last Admin: 02/21/17 08:35 Dose: 10 ml Heparin Sodium (Porcine) (Heparin -) 5,000 unit SQ BID [facility] Last Admin: 02/21/17 21:37 Dose: 5,000 unit Levofloxacin (Levaquin 500 Mg Premixed Ivpb -) 500 mg in 100 mls @ 100 mls/hr IVPB DAILY [facility] Last Admin: 02/21/17 10:35 Dose: 100 mls/hr Insulin Aspart (Novolog Vial Sliding Scale -) 1 vial SQ ACHS [facility] PRN Reason: Protocol Last Admin: 02/22/17 06:04 Dose: 3 units Insulin Aspart (Novolog Mix 70/30 Vial) 25 units SQ BIDAC [facility] Last Admin: 02/22/17 06:03 Dose: 25 units Insulin Detemir (Levemir Vial) 30 units SQ HS [facility] Last Admin: 02/21/17 21:21 Dose: 30 units Insulin Detemir (Levemir Vial) 50 units SQ BID [facility] Methylprednisolone Sodium Succinate (Solu-Medrol -) 40 mg IVPUSH Q6H-IV [facility] Last Admin: 02/22/17 03:05 Dose: 40 mg Polyethylene Glycol (Miralax (For Daily Use) -) 17 gm PO BID [facility] - Objective Vital Signs: Vital Signs Temperature 99.0 F 02/22/17 06:00 Pulse Rate 88 02/22/17 06:00 Respiratory Rate 22 02/22/17 06:00 Blood Pressure 134/68 02/22/17 06:00 O2 Sat by Pulse Oximetry (%) 98 02/21/17 21:00 Cardiovascular: Yes: Regular Rate and Rhythm Respiratory: Yes: On Nasal O2, Rhonchi, Wheezes Gastrointestinal: Yes: Normal Bowel Sounds, Soft, Abdomen, Obese, Distention Labs: CBC, BMP 02/21/17 06:30 02/21/17 06:30 INR, PTT INR 1.10 (0.82-1.09) 02/20/17 10:10 Assessment/Plan - Problems (1) Pneumonia Assessment/Plan: iv abx CT chest --BILATERAL INFILTRATES pulm and id eval noted oxygen Code(s): J18.9 - PNEUMONIA, UNSPECIFIED ORGANISM Qualifiers: Pneumonia type: due to unspecified organism Laterality: bilateral Lung location: unspecified part of lung Qualified Code(s): J18.9 - Pneumonia, unspecified organism (2) Shortness of breath Assessment/Plan: possible asthma exacerbation with underlying infection duonebs solumedrol oxygen pulm eval echo cardio eval Code(s): R06.02 - SHORTNESS OF BREATH (3) Constipation Assessment/Plan: MIRALAX DULCOLOX (4) Diabetes mellitus, insulin dependent (IDDM), uncontrolled Assessment/Plan: bgm sliding scale levemir hgba1c Code(s): E10.65 - TYPE 1 DIABETES MELLITUS WITH HYPERGLYCEMIA (5) Elevated troponin Assessment/Plan: tele echo trend CE cardio eval noted lipid panel Code(s): R74.8 - ABNORMAL LEVELS OF OTHER SERUM ENZYMES (6) Anemia Assessment/Plan: STOOL FOR OCCULT BLOOD ANEMIA W/U ORDERED GI CONSULT
[2017-02-22] MEDS: INSULIN DETEMIR 100 UNITS/ML MDV SQ SCH ×4 (09:04→22:22)
[2017-02-22] MEDS: LEVOFLOXACIN 500 MG IVPB 500 MG/100 ML BAG IVPB SCH (09:04)
[2017-02-22] MEDS: POLYETHYLENE GLYCOL 3350 119 GM BTL PO SCH ×3 (09:07→22:04)
[2017-02-22] MEDS: HEPARIN NA (PORCINE) 5,000 UNITS/ML 1ML VIAL SQ SCH ×2 (09:08→22:02)
[2017-02-22] MEDS: FUROSEMIDE 40 MG TABLET (FP) PO SCH (09:08)
--- NOTE | 2017-02-22 10:44 | PN ---
Progress Note, Physician History of Present Illness: PULMONARY ALERT,STILL C/O COUGH,MILDLY DYSPNEIC - Current Medication List Current Medications: Active Medications Acetaminophen (Tylenol -) 650 mg PO Q4H PRN PRN Reason: FEVER OR PAIN Albuterol/Ipratropium (Duoneb -) 1 amp NEB Q4H [facility] Last Admin: 02/22/17 05:51 Dose: 1 amp Furosemide (Lasix -) 40 mg PO DAILY [facility] Last Admin: 02/22/17 09:08 Dose: 40 mg Guaifenesin (Robitussin -) 10 ml PO Q4H PRN PRN Reason: COUGH Last Admin: 02/21/17 08:35 Dose: 10 ml Heparin Sodium (Porcine) (Heparin -) 5,000 unit SQ BID [facility] Last Admin: 02/22/17 09:08 Dose: 5,000 unit Levofloxacin (Levaquin 500 Mg Premixed Ivpb -) 500 mg in 100 mls @ 100 mls/hr IVPB DAILY [facility] Last Admin: 02/22/17 09:04 Dose: 100 mls/hr Insulin Aspart (Novolog Vial Sliding Scale -) 1 vial SQ ACHS [facility] PRN Reason: Protocol Last Admin: 02/22/17 06:04 Dose: 3 units Insulin Aspart (Novolog Mix 70/30 Vial) 25 units SQ BIDAC [facility] Last Admin: 02/22/17 06:03 Dose: 25 units Insulin Detemir (Levemir Vial) 30 units SQ HS [facility] Last Admin: 02/21/17 21:21 Dose: 30 units Insulin Detemir (Levemir Vial) 50 units SQ BID [facility] Last Admin: 02/22/17 09:04 Dose: 50 units Methylprednisolone Sodium Succinate (Solu-Medrol -) 40 mg IVPUSH Q6H-IV [facility] Last Admin: 02/22/17 09:04 Dose: 40 mg Polyethylene Glycol (Miralax (For Daily Use) -) 17 gm PO BID [facility] Last Admin: 02/22/17 10:01 Dose: Not Given - Objective Vital Signs: Vital Signs Temperature 98.8 F 02/22/17 10:00 Pulse Rate 90 02/22/17 10:00 Respiratory Rate 22 02/22/17 10:00 Blood Pressure 116/68 02/22/17 10:00 O2 Sat by Pulse Oximetry (%) 98 02/21/17 21:00 Constitutional: Yes: Calm, Obese Eyes: Yes: WNL HENT: Yes: WNL Neck: Yes: WNL Cardiovascular: Yes: Regular Rate and Rhythm, S1, S2 Respiratory: Yes: Diminished (FEW WHEEZES BILATERALLY) Gastrointestinal: Yes: Normal Bowel Sounds, Soft Extremities: Yes: WNL Edema: No Labs: CBC, BMP 02/21/17 06:30 02/21/17 06:30 INR, PTT INR 1.10 (0.82-1.09) 02/20/17 10:10 Problem List - Problems (1) Acute hypoxemic respiratory failure Code(s): J96.01 - ACUTE RESPIRATORY FAILURE WITH HYPOXIA (2) Pneumonia Code(s): J18.9 - PNEUMONIA, UNSPECIFIED ORGANISM Qualifiers: Pneumonia type: due to unspecified organism Laterality: bilateral Lung location: unspecified part of lung Qualified Code(s): J18.9 - Pneumonia, unspecified organism (3) Shortness of breath Code(s): R06.02 - SHORTNESS OF BREATH (4) Chest pain Code(s): R07.9 - CHEST PAIN, UNSPECIFIED Qualifiers: Chest pain type: intercostal pain Qualified Code(s): R07.82 - Intercostal pain (5) Cough Code(s): R05 - COUGH (6) Diabetes mellitus, insulin dependent (IDDM), uncontrolled Code(s): E10.65 - TYPE 1 DIABETES MELLITUS WITH HYPERGLYCEMIA (7) Dizziness Code(s): R42 - DIZZINESS AND GIDDINESS (8) HLD (hyperlipidemia) Code(s): E78.5 - HYPERLIPIDEMIA, UNSPECIFIED (9) Hypertension Code(s): I10 - ESSENTIAL (PRIMARY) HYPERTENSION Assessment/Plan IMP ACUTE HYPOXEMIC RESPIRATORY FAILURE IMPROVING PNEUMONIA ASTHMA HORACE ELEVATED TROPONIN LEVEL ? CHF DM PILMONARY HTN OSAS PLAN INHALED BRONCHODILATORS O2 ANTIBIOTICS STEROIDS LASIX F/U CHEST X-RAYS MONITOR LYTES,RENAL FUNCTION SLEEP SCREEN DR MANN Problem List - Problems (1) Acute hypoxemic respiratory failure Code(s): J96.01 - ACUTE RESPIRATORY FAILURE WITH HYPOXIA (2) Pneumonia Code(s): J18.9 - PNEUMONIA, UNSPECIFIED ORGANISM Qualifiers: Pneumonia type: due to unspecified organism Laterality: bilateral Lung location: unspecified part of lung Qualified Code(s): J18.9 - Pneumonia, unspecified organism (3) Shortness of breath Code(s): R06.02 - SHORTNESS OF BREATH (4) Chest pain Code(s): R07.9 - CHEST PAIN, UNSPECIFIED Qualifiers: Chest pain type: intercostal pain Qualified Code(s): R07.82 - Intercostal pain (5) Cough Code(s): R05 - COUGH (6) Diabetes mellitus, insulin dependent (IDDM), uncontrolled Code(s): E10.65 - TYPE 1 DIABETES MELLITUS WITH HYPERGLYCEMIA (7) Dizziness Code(s): R42 - DIZZINESS AND GIDDINESS (8) HLD (hyperlipidemia) Code(s): E78.5 - HYPERLIPIDEMIA, UNSPECIFIED (9) Hypertension Code(s): I10 - ESSENTIAL (PRIMARY) HYPERTENSION
--- NOTE | 2017-02-22 13:46 | PN ---
Progress Note (short form) - Note Progress Note: feels the same still coughing no fevers still wheezing Vital Signs Period Temp Pulse Resp BP Sys/Lee Pulse Ox Last 24 Hr 97.3 F-100 F 81-90 18-22 116-147/62-85 98-99 cor-rrr lungs bilateral wheezing abd soft,nt ext trace edema CBC, BMP 02/21/17 06:30 02/21/17 06:30 Microbiology 02/20/17 10:00 Blood - Peripheral Venous Blood Culture - Preliminary NO GROWTH OBTAINED AFTER 48 HOURS, INCUBATION TO CONTINUE FOR 3 DAYS. 02/20/17 10:00 Blood - Peripheral Venous Blood Culture - Preliminary NO GROWTH OBTAINED AFTER 48 HOURS, INCUBATION TO CONTINUE FOR 3 DAYS. 02/21/17 11:15 Nasopharyngeal Swab Influenza Types A,B Antigen (ELSIE) - Final 02/21/17 11:15 Nasopharyngeal Swab - Final 02/20/17 14:00 Urine - Urine Clean Catch Urine Culture - Final NO GROWTH OBTAINED a/p bilateral infiltrates-continue levaquin for CAP acute hypoxemic respiratory failure asthma ?CHF thyroid nodule anemia (new?) HORACE penicillin allergy continue levaquin will re-order urinary antigens Problem List - Problems (1) Pneumonia Code(s): J18.9 - PNEUMONIA, UNSPECIFIED ORGANISM Qualifiers: Pneumonia type: due to unspecified organism Laterality: bilateral Lung location: unspecified part of lung Qualified Code(s): J18.9 - Pneumonia, unspecified organism (2) Acute hypoxemic respiratory failure Code(s): J96.01 - ACUTE RESPIRATORY FAILURE WITH HYPOXIA (3) HORACE (acute kidney injury) Code(s): N17.9 - ACUTE KIDNEY FAILURE, UNSPECIFIED (4) Anemia Code(s): D64.9 - ANEMIA, UNSPECIFIED (5) Penicillin allergy Code(s): Z88.0 - ALLERGY STATUS TO PENICILLIN
--- NOTE | 2017-02-22 14:19 | PN ---
Progress Note, Physician Chief Complaint: less sob. No chest pain tele negative History of Present Illness: She is a 66 year old female, history of asthma, NIDDM, HTN, chol, who presents with SOB, nasal congestion, chest tightness, and chills that started on 5 days ago, some fever now better. Also orthopnea and edema. No chest pain, the tightness was post tussive and somewhat exertional for the past few days. No palpitations dizziness or syncope. CT scan with bilateral pneumonia, getting abx. echo 02/21/17 normal EF. - Current Medication List Current Medications: Active Medications Acetaminophen (Tylenol -) 650 mg PO Q4H PRN PRN Reason: FEVER OR PAIN Albuterol/Ipratropium (Duoneb -) 1 amp NEB Q4H [facility] Last Admin: 02/22/17 10:10 Dose: 1 amp Furosemide (Lasix -) 40 mg PO DAILY [facility] Last Admin: 02/22/17 09:08 Dose: 40 mg Guaifenesin (Robitussin -) 10 ml PO Q4H PRN PRN Reason: COUGH Last Admin: 02/21/17 08:35 Dose: 10 ml Heparin Sodium (Porcine) (Heparin -) 5,000 unit SQ BID [facility] Last Admin: 02/22/17 09:08 Dose: 5,000 unit Levofloxacin (Levaquin 500 Mg Premixed Ivpb -) 500 mg in 100 mls @ 100 mls/hr IVPB DAILY [facility] Last Admin: 02/22/17 09:04 Dose: 100 mls/hr Insulin Aspart (Novolog Vial Sliding Scale -) 1 vial SQ ACHS [facility] PRN Reason: Protocol Last Admin: 02/22/17 12:18 Dose: 12 units Insulin Aspart (Novolog Mix 70/30 Vial) 25 units SQ BIDAC [facility] Last Admin: 02/22/17 06:03 Dose: 25 units Insulin Detemir (Levemir Vial) 30 units SQ HS [facility] Last Admin: 02/21/17 21:21 Dose: 30 units Insulin Detemir (Levemir Vial) 50 units SQ BID [facility] Last Admin: 02/22/17 09:04 Dose: 50 units Methylprednisolone Sodium Succinate (Solu-Medrol -) 40 mg IVPUSH Q6H-IV [facility] Last Admin: 02/22/17 09:04 Dose: 40 mg Polyethylene Glycol (Miralax (For Daily Use) -) 17 gm PO BID [facility] Last Admin: 02/22/17 10:01 Dose: Not Given - Objective Vital Signs: Vital Signs Temperature 98.4 F 02/22/17 14:00 Pulse Rate 87 02/22/17 14:00 Respiratory Rate 22 02/22/17 10:00 Blood Pressure 154/78 02/22/17 14:00 O2 Sat by Pulse Oximetry (%) 99 02/22/17 11:00 Constitutional: Yes: No Distress, Calm Eyes: Yes: Conjunctiva Clear HENT: Yes: Atraumatic, Normocephalic Neck: Yes: Supple, Trachea Midline Cardiovascular: Yes: Regular Rate and Rhythm Respiratory: Yes: Rhonchi, Wheezes (bilat exp) Musculoskeletal: Yes: WNL Extremities: Yes: WNL Edema: No Peripheral Pulses WNL: Yes Labs: CBC, BMP 02/21/17 06:30 02/21/17 06:30 INR, PTT INR 1.10 (0.82-1.09) 02/20/17 10:10 Problem List - Problems (1) Shortness of breath Assessment/Plan: mild elevation of bnp. likely due to pneumonia. Echo normal EF. Continue PO lasix 40 mg daily. Code(s): R06.02 - SHORTNESS OF BREATH (2) Atypical chest pain Assessment/Plan: Her troponin is minimally elevated, will follow cardiac enzymes, likely due to hypoxia from pneumonia. Defer ischemia workup for now. asa and hold beta kayli for now due to wheezing. Echo normal EF. will see as outpatient when stable for outpatient ischemia dunbar. dc telemetry. Code(s): R07.89 - OTHER CHEST PAIN
--- NOTE | 2017-02-22 16:45 | PN ---
Progress Note, Physician History of Present Illness: Pt seen and examined at bedside. She still has coughing and wheezing. - Current Medication List Current Medications: Active Medications Acetaminophen (Tylenol -) 650 mg PO Q4H PRN PRN Reason: FEVER OR PAIN Albuterol/Ipratropium (Duoneb -) 1 amp NEB Q4H [facility] Last Admin: 02/22/17 14:25 Dose: 1 amp Furosemide (Lasix -) 40 mg PO DAILY [facility] Last Admin: 02/22/17 09:08 Dose: 40 mg Guaifenesin (Robitussin -) 10 ml PO Q4H PRN PRN Reason: COUGH Last Admin: 02/21/17 08:35 Dose: 10 ml Heparin Sodium (Porcine) (Heparin -) 5,000 unit SQ BID [facility] Last Admin: 02/22/17 09:08 Dose: 5,000 unit Levofloxacin (Levaquin 500 Mg Premixed Ivpb -) 500 mg in 100 mls @ 100 mls/hr IVPB DAILY [facility] Last Admin: 02/22/17 09:04 Dose: 100 mls/hr Insulin Aspart (Novolog Vial Sliding Scale -) 1 vial SQ ACHS [facility] PRN Reason: Protocol Last Admin: 02/22/17 12:18 Dose: 12 units Insulin Aspart (Novolog Mix 70/30 Vial) 25 units SQ BIDAC [facility] Last Admin: 02/22/17 06:03 Dose: 25 units Insulin Detemir (Levemir Vial) 30 units SQ HS [facility] Last Admin: 02/21/17 21:21 Dose: 30 units Insulin Detemir (Levemir Vial) 50 units SQ BID [facility] Last Admin: 02/22/17 09:04 Dose: 50 units Methylprednisolone Sodium Succinate (Solu-Medrol -) 40 mg IVPUSH Q6H-IV [facility] Last Admin: 02/22/17 14:55 Dose: 40 mg Polyethylene Glycol (Miralax (For Daily Use) -) 17 gm PO BID [facility] Last Admin: 02/22/17 10:01 Dose: Not Given - Objective Vital Signs: Vital Signs Temperature 98.4 F 02/22/17 14:00 Pulse Rate 87 02/22/17 14:00 Respiratory Rate 22 02/22/17 10:00 Blood Pressure 154/78 02/22/17 14:00 O2 Sat by Pulse Oximetry (%) 99 02/22/17 11:00 Constitutional: Yes: Calm Eyes: Yes: Conjunctiva Clear HENT: Yes: Atraumatic Neck: Yes: Supple Cardiovascular: Yes: S1, S2 Respiratory: Yes: On Nasal O2, Wheezes Gastrointestinal: Yes: Soft Genitourinary: Yes: WNL Musculoskeletal: Yes: WNL Edema: Yes Edema: LLE: 1+, RLE: 1+ Neurological: Yes: Oriented Psychiatric: Yes: Oriented Labs: CBC, BMP 02/21/17 06:30 02/21/17 06:30 INR, PTT INR 1.10 (0.82-1.09) 02/20/17 10:10 Problem List - Problems (1) Hyperkalemia Code(s): E87.5 - HYPERKALEMIA (2) Acute hypoxemic respiratory failure Code(s): J96.01 - ACUTE RESPIRATORY FAILURE WITH HYPOXIA (3) Pneumonia Code(s): J18.9 - PNEUMONIA, UNSPECIFIED ORGANISM Qualifiers: Pneumonia type: due to unspecified organism Laterality: bilateral Lung location: unspecified part of lung Qualified Code(s): J18.9 - Pneumonia, unspecified organism (4) Shortness of breath Code(s): R06.02 - SHORTNESS OF BREATH (5) Diabetes mellitus, insulin dependent (IDDM), uncontrolled Code(s): E10.65 - TYPE 1 DIABETES MELLITUS WITH HYPERGLYCEMIA Assessment/Plan Current Medications Generic Name Dose Route Start Last Admin Trade Name Freq PRN Reason Stop Dose Admin Acetaminophen 650 mg 02/20/17 14:18 Tylenol - PO Q4H PRN FEVER OR PAIN Albuterol/Ipratropium 1 amp 02/20/17 14:30 02/22/17 14:25 Duoneb - NEB 1 amp Q4H [facility] Administration Furosemide 40 mg 02/21/17 10:00 02/22/17 09:08 Lasix - PO 40 mg DAILY [facility] Administration Guaifenesin 10 ml 02/20/17 14:19 02/21/17 08:35 Robitussin - PO 10 ml Q4H PRN Administration COUGH Heparin Sodium (Porcine) 5,000 unit 02/20/17 22:00 02/22/17 09:08 Heparin - SQ 5,000 unit BID [facility] Administration Levofloxacin 500 mg in 100 mls @ 100 mls/hr 02/21/17 10:00 02/22/17 09:04 Levaquin 500 Mg Premixed Ivpb - IVPB 100 mls/hr DAILY [facility] Administration Insulin Aspart 1 vial 02/21/17 17:16 02/22/17 12:18 Novolog Vial Sliding Scale - SQ 12 units ACHS [facility] Administration Protocol Insulin Aspart 25 units 02/22/17 07:00 02/22/17 06:03 Novolog Mix 70/30 Vial SQ 25 units BIDAC [facility] Administration Insulin Detemir 30 units 02/21/17 17:16 02/21/17 21:21 Levemir Vial SQ 30 units HS [facility] Administration Insulin Detemir 50 units 02/22/17 10:00 02/22/17 09:04 Levemir Vial SQ 50 units BID [facility] Administration Methylprednisolone Sodium Succinate 40 mg 02/20/17 15:00 02/22/17 14:55 Solu-Medrol - IVPUSH 40 mg Q6H-IV [facility] Administration Polyethylene Glycol 17 gm 02/22/17 08:30 02/22/17 10:01 Miralax (For Daily Use) - PO Not Given BID [facility] Laboratory Tests 02/21/17 18:00 Protein/Creatinin Ratio 4.91 Impression 1. hyperkalemia 2. vascular congestion 3. DM 4. PNA 5. obesity 6. HTN 7. chest pain 8. proteinuria 9. CKD Plan - renal workup in progress - pt does have nephrotic proteinuria - can be secondary to DM - recommend kidney biopsy once she is stable - cont lasix - repeat labs in am - steroids with taper as tolerated - renal ultrasound - will follow Dr Sahu
[2017-02-22] MEDS ORDERED: PT OWN MED DRAWER 7, Y5N ONE (17:42)
[2017-02-22] MEDS ORDERED: INSULIN (NOVOLOG) ASPART 100 UNITS/ML 10ML VIAL ONE (21:46)
[2017-02-23] MEDS: ALBUTEROL SO4 2.5/IPRATROPIUM 0.5 INH SOL 3 ML VIAL.NEB. NEB SCH ×6 (03:00→23:02)
[2017-02-23] MEDS: methylPREDNISolone NA SUCC 40 MG/1 ML VIAL IVPUSH SCH ×4 (03:11→21:07)
[2017-02-23] MEDS: INSULIN (NOVOLOG MIX 70/30) 100 UNITS/ML MDV SQ SCH ×2 (06:07→17:02)
[2017-02-23] MEDS: INSULIN SLIDING SCALE (NOVOLOG) 1 VIAL SQ SCH ×4 (06:07→21:09)
[2017-02-23] MEDS ORDERED: INSULIN (NOVOLOG) ASPART 100 UNITS/ML 10ML VIAL ONE ×4 (06:38→19:56)
[2017-02-23] MEDS: INSULIN DETEMIR 100 UNITS/ML MDV SQ SCH ×2 (08:56→21:08)
[2017-02-23] MEDS: POLYETHYLENE GLYCOL 3350 119 GM BTL PO SCH ×3 (09:35→21:09)
[2017-02-23] MEDS: HEPARIN NA (PORCINE) 5,000 UNITS/ML 1ML VIAL SQ SCH ×2 (09:35→21:08)
[2017-02-23] MEDS: LEVOFLOXACIN 500 MG IVPB 500 MG/100 ML BAG IVPB SCH (09:36)
[2017-02-23] MEDS: FUROSEMIDE 40 MG TABLET (FP) PO SCH (09:36)
[2017-02-23] MEDS ORDERED: MINERAL OIL ENEMA 133 ML ENEMA PR ONE (11:26)
--- NOTE | 2017-02-23 11:34 | PN ---
Progress Note, Physician Chief Complaint: patient seen and examined sitting on edge of bed has not had bowel movement in 6 days - Current Medication List Current Medications: Active Medications Acetaminophen (Tylenol -) 650 mg PO Q4H PRN PRN Reason: FEVER OR PAIN Albuterol/Ipratropium (Duoneb -) 1 amp NEB Q4H [facility] Last Admin: 02/23/17 10:39 Dose: 1 amp Furosemide (Lasix -) 40 mg PO DAILY [facility] Last Admin: 02/23/17 09:36 Dose: 40 mg Guaifenesin (Robitussin -) 10 ml PO Q4H PRN PRN Reason: COUGH Last Admin: 02/21/17 08:35 Dose: 10 ml Heparin Sodium (Porcine) (Heparin -) 5,000 unit SQ BID [facility] Last Admin: 02/23/17 09:35 Dose: 5,000 unit Levofloxacin (Levaquin 500 Mg Premixed Ivpb -) 500 mg in 100 mls @ 100 mls/hr IVPB DAILY [facility] Last Admin: 02/23/17 09:36 Dose: 100 mls/hr Insulin Aspart (Novolog Vial Sliding Scale -) 1 vial SQ ACHS [facility] PRN Reason: Protocol Last Admin: 02/23/17 06:07 Dose: 5 units Insulin Aspart (Novolog Mix 70/30 Vial) 25 units SQ BIDAC [facility] Last Admin: 02/23/17 06:07 Dose: 25 units Insulin Detemir (Levemir Vial) 50 units SQ BID@0700,2200 [facility] Last Admin: 02/23/17 08:56 Dose: 50 units Methylprednisolone Sodium Succinate (Solu-Medrol -) 40 mg IVPUSH Q6H-IV [facility] Last Admin: 02/23/17 08:46 Dose: 40 mg Mineral Oil (Fleet Mineral Oil Rectal Enema -) 133 ml LA NOW ONE Stop: 02/23/17 11:27 Polyethylene Glycol (Miralax (For Daily Use) -) 17 gm PO BID [facility] Last Admin: 02/23/17 10:22 Dose: Not Given - Objective Vital Signs: Vital Signs Temperature 98.2 F 02/23/17 09:59 Pulse Rate 94 H 02/23/17 09:59 Respiratory Rate 22 02/23/17 09:59 Blood Pressure 130/70 02/23/17 09:59 O2 Sat by Pulse Oximetry (%) 99 02/23/17 09:00 Constitutional: Yes: Calm Cardiovascular: Yes: Regular Rate and Rhythm, S1, S2 Respiratory: Yes: Wheezes Gastrointestinal: Yes: Soft, Distention Neurological: Yes: Alert, Oriented Labs: CBC, BMP 02/21/17 06:30 02/21/17 06:30 INR, PTT INR 1.10 (0.82-1.09) 02/20/17 10:10 Problem List - Problems (1) Pneumonia Assessment/Plan: iv abx oxygen Code(s): J18.9 - PNEUMONIA, UNSPECIFIED ORGANISM Qualifiers: Pneumonia type: due to unspecified organism Laterality: bilateral Lung location: unspecified part of lung Qualified Code(s): J18.9 - Pneumonia, unspecified organism (2) Shortness of breath Assessment/Plan: possible asthma exacerbation with underlying infection duonebs solumedrol iv oxygen on iv lasix cxr shows congestive changes echo- left and right atrium is mildly dilated left ejection fraction normal Code(s): R06.02 - SHORTNESS OF BREATH (3) Cough Assessment/Plan: oxygen bronchodilators steroids Code(s): R05 - COUGH (4) Diabetes mellitus, insulin dependent (IDDM), uncontrolled Assessment/Plan: bgm sliding scale levemir hgba1c Code(s): E10.65 - TYPE 1 DIABETES MELLITUS WITH HYPERGLYCEMIA (5) Elevated troponin Assessment/Plan: off tele on regular med surg floor Code(s): R74.8 - ABNORMAL LEVELS OF OTHER SERUM ENZYMES (6) Thyroid enlarged Assessment/Plan: right lobe with multiple nodules check tft Code(s): E04.9 - NONTOXIC GOITER, UNSPECIFIED (7) Constipation Assessment/Plan: fua enema miralax Code(s): K59.00 - CONSTIPATION, UNSPECIFIED
--- NOTE | 2017-02-23 12:41 | PN ---
Progress Note (short form) - Note Progress Note: PULMONARY Breathing about the same. +nonproductive cough and wheezing. No fevers or chills. Last Vital Signs Temp Pulse Resp BP Pulse Ox 98.2 F 94 H 22 130/70 99 02/23/17 09:59 02/23/17 09:59 02/23/17 09:59 02/23/17 09:59 02/23/17 09:00 Gen: NAD at rest Heart: RRR Lung: bilateral rhonchi, wheezes Abd: soft, nontender Ext: no edema CBC, BMP 02/21/17 06:30 02/21/17 06:30 Active Medications Acetaminophen (Tylenol -) 650 mg PO Q4H PRN PRN Reason: FEVER OR PAIN Albuterol/Ipratropium (Duoneb -) 1 amp NEB Q4H [facility] Last Admin: 02/23/17 10:39 Dose: 1 amp Furosemide (Lasix -) 40 mg PO DAILY [facility] Last Admin: 02/23/17 09:36 Dose: 40 mg Guaifenesin (Robitussin -) 10 ml PO Q4H PRN PRN Reason: COUGH Last Admin: 02/21/17 08:35 Dose: 10 ml Heparin Sodium (Porcine) (Heparin -) 5,000 unit SQ BID [facility] Last Admin: 02/23/17 09:35 Dose: 5,000 unit Levofloxacin (Levaquin 500 Mg Premixed Ivpb -) 500 mg in 100 mls @ 100 mls/hr IVPB DAILY [facility] Last Admin: 02/23/17 09:36 Dose: 100 mls/hr Insulin Aspart (Novolog Vial Sliding Scale -) 1 vial SQ ACHS [facility] PRN Reason: Protocol Last Admin: 02/23/17 06:07 Dose: 5 units Insulin Aspart (Novolog Mix 70/30 Vial) 25 units SQ BIDAC [facility] Last Admin: 02/23/17 06:07 Dose: 25 units Insulin Detemir (Levemir Vial) 50 units SQ BID@0700,2200 [facility] Last Admin: 02/23/17 08:56 Dose: 50 units Methylprednisolone Sodium Succinate (Solu-Medrol -) 40 mg IVPUSH Q6H-IV [facility] Last Admin: 02/23/17 08:46 Dose: 40 mg Polyethylene Glycol (Miralax (For Daily Use) -) 17 gm PO BID [facility] Last Admin: 02/23/17 10:22 Dose: Not Given A/P Acute Hypoxic Respiratory Failure improving Pneumonia Asthma Acute Kidney Injury Pulmonary HTN DM TERENCE - continue antibiotics - continue medrol at current dose - inhaled bronchodilators - O2 to keep Spo2 >90% - will need outpt f/u of chest imaging as there are atypical features - DVT prophylaxis
[2017-02-23 14:39] LABS: ALBUMIN 2.6 g/dl (3.4-5.0); ANION GAP 9 (8-16); CALCIUM 8.6 mg/dL (8.5-10.1); CO2 31 mmol/L (21-32)
[2017-02-23 14:40] LABS: ANION GAP 10 (8-16); CALCIUM 8.8 mg/dL (8.5-10.1); CO2 31 mmol/L (21-32); CREATININE 1.4 mg/dL (0.55-1.02)
[2017-02-23 14:42] LABS: CREATININE 1.3 mg/dL (0.55-1.02); SGOT/AST 25 U/L (15-37); SGPT/ALT 47 U/L (12-78)
[2017-02-23 14:52] LABS: GLUCOSE,RANDOM 379 mg/dL (74-106)
[2017-02-23 14:54] LABS: ALK PHOS 64 U/L (45-117); BILIRUBIN,TOTAL 0.3 mg/dL (0.2-1.0); GLUCOSE,RANDOM 375 mg/dL (74-106); TOT PROT 6.8 g/dl (6.4-8.2)
--- NOTE | 2017-02-23 14:59 | PN ---
Progress Note, Physician Chief Complaint: ID Levofloxacin IV Subjective improvement - Current Medication List Current Medications: Active Medications Acetaminophen (Tylenol -) 650 mg PO Q4H PRN PRN Reason: FEVER OR PAIN Albuterol/Ipratropium (Duoneb -) 1 amp NEB Q4H [facility] Last Admin: 02/23/17 10:39 Dose: 1 amp Furosemide (Lasix -) 40 mg PO DAILY [facility] Last Admin: 02/23/17 09:36 Dose: 40 mg Guaifenesin (Robitussin -) 10 ml PO Q4H PRN PRN Reason: COUGH Last Admin: 02/21/17 08:35 Dose: 10 ml Heparin Sodium (Porcine) (Heparin -) 5,000 unit SQ BID [facility] Last Admin: 02/23/17 09:35 Dose: 5,000 unit Levofloxacin (Levaquin 500 Mg Premixed Ivpb -) 500 mg in 100 mls @ 100 mls/hr IVPB DAILY [facility] Last Admin: 02/23/17 09:36 Dose: 100 mls/hr Insulin Aspart (Novolog Vial Sliding Scale -) 1 vial SQ ACHS [facility] PRN Reason: Protocol Last Admin: 02/23/17 12:41 Dose: 9 units Insulin Aspart (Novolog Mix 70/30 Vial) 25 units SQ BIDAC [facility] Last Admin: 02/23/17 06:07 Dose: 25 units Insulin Detemir (Levemir Vial) 50 units SQ BID@0700,2200 [facility] Last Admin: 02/23/17 08:56 Dose: 50 units Methylprednisolone Sodium Succinate (Solu-Medrol -) 40 mg IVPUSH Q6H-IV [facility] Last Admin: 02/23/17 08:46 Dose: 40 mg Polyethylene Glycol (Miralax (For Daily Use) -) 17 gm PO BID [facility] Last Admin: 02/23/17 10:22 Dose: Not Given - Objective Vital Signs: Vital Signs Temperature 98.4 F 02/23/17 14:41 Pulse Rate 93 H 02/23/17 14:41 Respiratory Rate 20 02/23/17 14:41 Blood Pressure 149/79 02/23/17 14:41 O2 Sat by Pulse Oximetry (%) 99 02/23/17 09:00 Constitutional: Yes: Obese HENT: Yes: WNL, Atraumatic Neck: Yes: WNL, Supple Cardiovascular: Yes: Regular Rate and Rhythm, S1, S2 Respiratory: Yes: WNL, Regular, CTA Bilaterally, Rhonchi. No: Wheezes Gastrointestinal: Yes: Soft. No: Tenderness Labs: CBC, BMP 02/21/17 06:30 02/23/17 13:40 INR, PTT INR 1.10 (0.82-1.09) 02/20/17 10:10 Assessment/Plan Microbiology 02/21/17 11:15 Nasopharyngeal Swab Influenza Types A,B Antigen (ELSIE) - Final 02/21/17 11:15 Nasopharyngeal Swab - Final 02/20/17 14:00 Urine - Urine Clean Catch Urine Culture - Final NO GROWTH OBTAINED 02/20/17 10:00 Blood - Peripheral Venous Blood Culture - Preliminary NO GROWTH OBTAINED AFTER 72 HOURS, INCUBATION TO CONTINUE FOR 2 DAYS. 02/20/17 10:00 Blood - Peripheral Venous Blood Culture - Preliminary NO GROWTH OBTAINED AFTER 72 HOURS, INCUBATION TO CONTINUE FOR 2 DAYS. Laboratory Tests 02/21/17 02/22/17 02/23/17 06:30 05:05 13:40 WBC 7.9 Hgb 8.6 L Hct 26.4 L Plt Count 191 ESR 100 H BUN 36 H Creatinine 1.4 H Random Glucose 379 H* Assessment Respiratory failure ? Pneumonia Obesity Diabetes Plan Continue current therapy Raúl PIKE
[2017-02-23 15:27] LABS: FREE T4 1.48 ng/dl (0.76-1.46)
[2017-02-23] MEDS: FUROSEMIDE 40 MG TABLET (FP) PO ONE ×2 (17:05→17:21)
[2017-02-23] MEDS ORDERED: PT OWN MED DRAWER 7, Y5N ONE (17:15)
--- NOTE | 2017-02-23 17:23 | PN ---
Progress Note, Physician History of Present Illness: Pt seen and examined at bedside. She complains of wheezing and lower ext edema. - Current Medication List Current Medications: Active Medications Acetaminophen (Tylenol -) 650 mg PO Q4H PRN PRN Reason: FEVER OR PAIN Albuterol/Ipratropium (Duoneb -) 1 amp NEB Q4H [facility] Last Admin: 02/23/17 10:39 Dose: 1 amp Furosemide (Lasix -) 40 mg PO DAILY [facility] Last Admin: 02/23/17 09:36 Dose: 40 mg Guaifenesin (Robitussin -) 10 ml PO Q4H PRN PRN Reason: COUGH Last Admin: 02/21/17 08:35 Dose: 10 ml Heparin Sodium (Porcine) (Heparin -) 5,000 unit SQ BID [facility] Last Admin: 02/23/17 09:35 Dose: 5,000 unit Levofloxacin (Levaquin 500 Mg Premixed Ivpb -) 500 mg in 100 mls @ 100 mls/hr IVPB DAILY [facility] Last Admin: 02/23/17 09:36 Dose: 100 mls/hr Insulin Aspart (Novolog Vial Sliding Scale -) 1 vial SQ ACHS [facility] PRN Reason: Protocol Last Admin: 02/23/17 17:02 Dose: 13 units Insulin Aspart (Novolog Mix 70/30 Vial) 25 units SQ BIDAC [facility] Last Admin: 02/23/17 17:02 Dose: 25 units Insulin Detemir (Levemir Vial) 50 units SQ BID@0700,2200 [facility] Last Admin: 02/23/17 08:56 Dose: 50 units Methylprednisolone Sodium Succinate (Solu-Medrol -) 40 mg IVPUSH Q6H-IV [facility] Last Admin: 02/23/17 15:45 Dose: 40 mg Polyethylene Glycol (Miralax (For Daily Use) -) 17 gm PO BID [facility] Last Admin: 02/23/17 10:22 Dose: Not Given - Objective Vital Signs: Vital Signs Temperature 98.4 F 02/23/17 14:41 Pulse Rate 93 H 02/23/17 14:41 Respiratory Rate 20 02/23/17 14:41 Blood Pressure 149/79 02/23/17 14:41 O2 Sat by Pulse Oximetry (%) 99 02/23/17 09:00 Constitutional: Yes: Calm Eyes: Yes: Conjunctiva Clear HENT: Yes: Atraumatic Cardiovascular: Yes: S1, S2 Respiratory: Yes: On Nasal O2, Wheezes Gastrointestinal: Yes: Soft, Abdomen, Obese Genitourinary: Yes: WNL Musculoskeletal: Yes: WNL Edema: Yes Edema: LLE: 1+, RLE: 1+ Neurological: Yes: Oriented Psychiatric: Yes: Oriented Labs: CBC, BMP 02/21/17 06:30 02/23/17 13:40 INR, PTT INR 1.10 (0.82-1.09) 02/20/17 10:10 Problem List - Problems (1) Hyperkalemia Code(s): E87.5 - HYPERKALEMIA (2) Acute hypoxemic respiratory failure Code(s): J96.01 - ACUTE RESPIRATORY FAILURE WITH HYPOXIA (3) Pneumonia Code(s): J18.9 - PNEUMONIA, UNSPECIFIED ORGANISM Qualifiers: Pneumonia type: due to unspecified organism Laterality: bilateral Lung location: unspecified part of lung Qualified Code(s): J18.9 - Pneumonia, unspecified organism (4) Shortness of breath Code(s): R06.02 - SHORTNESS OF BREATH (5) Diabetes mellitus, insulin dependent (IDDM), uncontrolled Code(s): E10.65 - TYPE 1 DIABETES MELLITUS WITH HYPERGLYCEMIA Assessment/Plan Current Medications Generic Name Dose Route Start Last Admin Trade Name Freq PRN Reason Stop Dose Admin Acetaminophen 650 mg 02/20/17 14:18 Tylenol - PO Q4H PRN FEVER OR PAIN Albuterol/Ipratropium 1 amp 02/20/17 14:30 02/23/17 10:39 Duoneb - NEB 1 amp Q4H [facility] Administration Furosemide 40 mg 02/21/17 10:00 02/23/17 09:36 Lasix - PO 40 mg DAILY [facility] Administration Guaifenesin 10 ml 02/20/17 14:19 02/21/17 08:35 Robitussin - PO 10 ml Q4H PRN Administration COUGH Heparin Sodium (Porcine) 5,000 unit 02/20/17 22:00 02/23/17 09:35 Heparin - SQ 5,000 unit BID [facility] Administration Levofloxacin 500 mg in 100 mls @ 100 mls/hr 02/21/17 10:00 02/23/17 09:36 Levaquin 500 Mg Premixed Ivpb - IVPB 100 mls/hr DAILY [facility] Administration Insulin Aspart 1 vial 11/28/17 17:16 02/23/17 17:02 Novolog Vial Sliding Scale - SQ 13 units ACHS [facility] Administration Protocol Insulin Aspart 25 units 02/22/17 07:00 02/23/17 17:02 Novolog Mix 70/30 Vial SQ 25 units BIDAC [facility] Administration Insulin Detemir 50 units 02/23/17 07:15 02/23/17 08:56 Levemir Vial SQ 50 units BID@0700,2200 [facility] Administration Methylprednisolone Sodium Succinate 40 mg 02/20/17 15:00 02/23/17 15:45 Solu-Medrol - IVPUSH 40 mg Q6H-IV [facility] Administration Polyethylene Glycol 17 gm 02/22/17 08:30 02/23/17 10:22 Miralax (For Daily Use) - PO Not Given BID [facility] Impression 1. hyperkalemia 2. vascular congestion 3. DM 4. PNA 5. obesity 6. HTN 7. chest pain 8. proteinuria 9. CKD Plan - renal workup pending - will give another dose of lasix - cont with IV steroids - will need better glucose control - recommend kidney biopsy once she is stable - renal ultrasound - will follow Dr Sahu
--- NOTE | 2017-02-23 17:52 | CONSULT ---
Consult - text type - Consultation Consultation Note: Pt is a 66 year old female with pmhx of DM, HTN, chf and obesity who presents to the ER with shortness of breath and cough. She also complains of wheezing. She has had a productive cough with yellow sputum. She denies dysuria or hematuria. - History Source History Provided By: Patient, Medical Record - Past Medical History Cardio/Vascular: Yes: HTN, Hyperlipdemia Pulmonary: Yes: Asthma, Sleep Apnea Gastrointestinal: Yes: GERD Musculoskeletal: Yes: Osteoarthritis Endocrine: Yes: Diabetes Mellitus - Smoking History Smoking history: Never smoked - Allergies Allergies/Adverse Reactions: Allergies Allergy/AdvReac Type Severity Reaction Status Date / Time Penicillins Allergy Difficulty Verified 02/20/17 09:38 Breathing - Home Medications Home Medications: Ambulatory Orders Aspirin [ASA -] 81 mg PO DAILY 08/02/12 Mometasone Furoate [Asmanex 220Mcg -] 2 inh IH DAILY PRN 08/02/12 Atorvastatin Ca [Lipitor] 40 mg PO HS #30 tablet 01/02/15 Insulin (Levemir) [Levemir Flexpen -] 30 units SQ DAILY@0700 07/03/16 Insulin Lispro Protamin/Lispro [Humalog Mix 50-50 Vial] 15 unit SQ BID 07/03/16 Family Disease History - Family Disease History Family History: Denies Physical Exam Last Vital Signs Temp Pulse Resp BP Pulse Ox 98.4 F 93 H 20 149/79 99 02/23/17 14:41 02/23/17 14:41 02/23/17 14:41 02/23/17 14:41 02/23/17 09:00 Constitutional: Yes: Calm Eyes: Yes: Conjunctiva Clear Cardiovascular: Yes: S1, S2 Respiratory: Yes: On Nasal O2, Wheezes Gastrointestinal: Yes: Soft, Abdomen, Obese Renal/: Yes: WNL Musculoskeletal: Yes: WNL Edema: LLE: 1+, RLE: 1+ Neurological: Yes: Oriented Abnormal Lab Results 02/23/17 02/23/17 13:40 13:40 Chloride 97 L 97 L BUN 37 H 36 H Creatinine 1.3 H 1.4 H Random Glucose 375 H* D 379 H* Albumin 2.6 L Free T4 1.48 H D Imaging - Results Chest X-ray: Report Reviewed Problem List - Problems (1) Hyperkalemia Code(s): E87.5 - HYPERKALEMIA (2) Acute hypoxemic respiratory failure Code(s): J96.01 - ACUTE RESPIRATORY FAILURE WITH HYPOXIA (3) Pneumonia Code(s): J18.9 - PNEUMONIA, UNSPECIFIED ORGANISM Qualifiers: Pneumonia type: due to unspecified organism Laterality: bilateral Lung location: unspecified part of lung Qualified Code(s): J18.9 - Pneumonia, unspecified organism (4) Shortness of breath Code(s): R06.02 - SHORTNESS OF BREATH (5) Diabetes mellitus, insulin dependent (IDDM), uncontrolled Code(s): E10.65 - TYPE 1 DIABETES MELLITUS WITH HYPERGLYCEMIA Assessment/Plan Current Medications Generic Name Dose Route Start Last Admin Trade Name Freq PRN Reason Stop Dose Admin Acetaminophen 650 mg 02/20/17 14:18 Tylenol - PO Q4H PRN FEVER OR PAIN Albuterol/Ipratropium 1 amp 02/20/17 14:30 02/20/17 14:36 Duoneb - NEB 1 amp Q4H [facility] Administration Furosemide 40 mg 02/21/17 10:00 Lasix - PO DAILY [facility] Guaifenesin 10 ml 02/20/17 14:19 Robitussin - PO Q4H PRN COUGH Heparin Sodium (Porcine) 5,000 unit 02/20/17 22:00 Heparin - SQ BID [facility] Levofloxacin 500 mg in 100 mls @ 100 mls/hr 02/21/17 10:00 Levaquin 500 Mg Premixed Ivpb - IVPB DAILY [facility] Insulin Aspart 1 vial 02/20/17 14:30 02/20/17 17:23 Novolog Vial Sliding Scale - SQ 10 units ACHS [facility] Administration Protocol Insulin Detemir 20 units 02/20/17 14:30 02/20/17 14:44 Levemir Vial SQ 20 unit HS [facility] Administration Methylprednisolone Sodium Succinate 40 mg 02/20/17 15:00 02/20/17 15:06 Solu-Medrol - IVPUSH 40 mg Q6H-IV [facility] Administration A/P 66 y/o patient with obesity,HTN, Hyperlipidemia, DM, COPD exacerbation, comes in with shortness of breath/COPD exacerbation ? pneumonia Anemia--Hgb 8.8, normocytic. normal platelets/WBC anemia of chronic disease +/- gi losses low iron saturation Never had EGD/colonoscopy---will need GI w/u when acute respiratory issues resolve needs age appropriate cancer screening transfuse for hgb <8
[2017-02-23 18:02] LABS: MCH 27.6 pg (25.7-33.7); MCHC 32.4 g/dl (32.0-36.0); MEAN CELL VOLUME 85.1 fl (80-96); MEAN PLT VOLUME 10.9 fl (7.5-11.1); PLATELET COUNT 256 K/MM3 (134-434); RDW 15.4 % (11.6-15.6); WHITE BLOOD COUNT 9.9 K/mm3 (4.0-10.0)
--- NOTE | 2017-02-23 21:09 | CON.GI ---
Consult Consult Specialty:: GI Referred by:: Dr Payne Reason for Consultation:: anemia - History of Present Illness Chief Complaint: shortness of breath History of Present Illness: 66 F with h/o DM, HTN, HLD, asthma admitted with progressive dyspnea chest discomfort for the past week. I am called to address anemia. On admission, Hgb 8.8 and MCV 85. She has guaiac (+) stool but there has been no ej bleeding. She is not sure if she has had colon or EGD in the past. - History Source History Provided By: Family Member (son), Medical Record Limitations to Obtaining History: No Limitations - Past Medical History Cardio/Vascular: Yes: HTN, Hyperlipdemia Pulmonary: Yes: Asthma, Sleep Apnea Gastrointestinal: Yes: GERD ...: No Musculoskeletal: Yes: Osteoarthritis Endocrine: Yes: Diabetes Mellitus - Alcohol/Substance Use Hx Alcohol Use: No - Smoking History Smoking history: Never smoked Have you smoked in the past 12 months: No Aproximately how many cigarettes per day: 0 Home Medications - Allergies Allergies/Adverse Reactions: Allergies Allergy/AdvReac Type Severity Reaction Status Date / Time Penicillins Allergy Difficulty Verified 02/20/17 09:38 Breathing - Home Medications Home Medications: Ambulatory Orders Aspirin [ASA -] 81 mg PO DAILY 08/02/12 Mometasone Furoate [Asmanex 220Mcg -] 2 inh IH DAILY PRN 08/02/12 Atorvastatin Ca [Lipitor] 40 mg PO HS #30 tablet 01/02/15 Insulin (Levemir) [Levemir Flexpen -] 30 units SQ DAILY@0700 07/03/16 Insulin Lispro Protamin/Lispro [Humalog Mix 50-50 Vial] 15 unit SQ BID 07/03/16 Physical Exam-GI Vital Signs: Vital Signs Temperature 98.2 F 02/23/17 20:18 Pulse Rate 77 02/23/17 20:18 Respiratory Rate 20 02/23/17 20:18 Blood Pressure 119/59 02/23/17 20:18 O2 Sat by Pulse Oximetry (%) 97 02/23/17 18:44 Constitutional: Yes: Obese (morbid) HENT: Yes: WNL Neck: Yes: Supple Cardiovascular: Yes: WNL, Regular Rate and Rhythm Respiratory: Yes: Diminished Gastrointestinal Inspection: Yes: Other (obese) ...Auscultate: Yes: Normoactive Bowel Sounds ...Palpate: Yes: Soft. No: Tenderness Labs: CBC, BMP 02/23/17 17:00 02/23/17 13:40 INR, PTT INR 1.10 (0.82-1.09) 02/20/17 10:10 Hepatic Panel Total Bilirubin 0.3 mg/dL (0.2-1.0) D 02/23/17 13:40 AST 25 U/L (15-37) 02/23/17 13:40 ALT 47 U/L (12-78) D 02/23/17 13:40 Alkaline Phosphatase 64 U/L (45-117) 02/23/17 13:40 Albumin 2.6 g/dl (3.4-5.0) L 02/23/17 13:40 Imaging - Results Cat Scan: Report Reviewed (hepatic steatosis) Assessment/Plan 66 F with above history admitted with dyspnea and found to have a normocytic anemia. She has guaiac (+) stool, likely secondary to stercoral ulcer in the rectum secondary to chronic constipation. Would consider procedures if her clinical status improved markedly but I don't think that is likely. Would implement laxative therapy and enemas and follow H &H Anemia likely secondary to chronic disease and inflammation. HgbA1c ranges between 10.7 and 13. No need for transfusion at this time.
[2017-02-23 22:26] LABS: PLATELET COMMENTS SLIDE SCANNED.; PLATELET ESTIMATE ADEQUATE; TOTAL CELLS COUNTED 100
[2017-02-24 00:06] LABS: A/G RATIO 0.7 (0.7-1.7); ALBUMIN 2.6 g/dL (2.9-4.4); GLOBULIN, TOTAL 3.9 g/dL (2.2-3.9); M-SPIKE Not Observed g/dL (Not Observed); TOTAL PROTEIN 6.5 g/dL (6.0-8.5)
[2017-02-24] MEDS: ALBUTEROL SO4 2.5/IPRATROPIUM 0.5 INH SOL 3 ML VIAL.NEB. NEB SCH ×6 (02:06→22:27)
--- NOTE | 2017-02-24 02:26 | PN ---
Progress Note, Physician Chief Complaint: short of breath sitting in chair History of Present Illness: dm morbid obesity,copd,chf,cough and wheezing at rest - Current Medication List Current Medications: Active Medications Acetaminophen (Tylenol -) 650 mg PO Q4H PRN PRN Reason: FEVER OR PAIN Albuterol/Ipratropium (Duoneb -) 1 amp NEB Q4H [facility] Last Admin: 02/23/17 23:02 Dose: 1 amp Furosemide (Lasix -) 40 mg PO DAILY [facility] Last Admin: 02/23/17 09:36 Dose: 40 mg Guaifenesin (Robitussin -) 10 ml PO Q4H PRN PRN Reason: COUGH Last Admin: 02/21/17 08:35 Dose: 10 ml Heparin Sodium (Porcine) (Heparin -) 5,000 unit SQ BID [facility] Last Admin: 02/23/17 21:08 Dose: 5,000 unit Levofloxacin (Levaquin 500 Mg Premixed Ivpb -) 500 mg in 100 mls @ 100 mls/hr IVPB DAILY [facility] Last Admin: 02/23/17 09:36 Dose: 100 mls/hr Insulin Aspart (Novolog Mix 70/30 Vial) 25 units SQ BIDAC [facility] Last Admin: 02/23/17 17:02 Dose: 25 units Insulin Aspart (Novolog Vial Sliding Scale -) 1 vial SQ ACHS [facility] PRN Reason: Protocol Last Admin: 02/23/17 21:09 Dose: 5 units Insulin Detemir (Levemir Vial) 50 units SQ BID@0700,2200 [facility] Last Admin: 02/23/17 21:08 Dose: 50 units Methylprednisolone Sodium Succinate (Solu-Medrol -) 40 mg IVPUSH Q6H-IV [facility] Last Admin: 02/23/17 21:07 Dose: 40 mg Pantoprazole Sodium (Protonix -) 40 mg PO DAILY [facility] Polyethylene Glycol (Miralax (For Daily Use) -) 17 gm PO BID [facility] Last Admin: 02/23/17 21:09 Dose: Not Given - Objective Vital Signs: Vital Signs Temperature 98.2 F 02/23/17 20:18 Pulse Rate 77 02/23/17 20:18 Respiratory Rate 20 02/23/17 21:00 Blood Pressure 119/59 02/23/17 20:18 O2 Sat by Pulse Oximetry (%) 100 02/23/17 21:00 Constitutional: Yes: Anxious Eyes: Yes: EOM Intact HENT: Yes: Normocephalic Neck: Yes: Trachea Midline Cardiovascular: Yes: Regular Rate and Rhythm Respiratory: Yes: CTA Bilaterally Gastrointestinal: Yes: Normal Bowel Sounds ...Rectal Exam: Yes: Deferred Genitourinary: Yes: WNL Breast(s): Yes: WNL Musculoskeletal: Yes: WNL, Back Pain, Muscle Weakness Extremities: Yes: WNL Edema: No Neurological: Yes: Alert, Oriented Labs: CBC, BMP 02/23/17 17:00 02/23/17 13:40 INR, PTT INR 1.10 (0.82-1.09) 02/20/17 10:10 Problem List - Problems (1) Type 2 diabetes mellitus with other diabetic arthropathy Code(s): E11.618 - TYPE 2 DIABETES MELLITUS WITH OTHER DIABETIC ARTHROPATHY (2) Type 2 diabetes mellitus with diabetic neuropathic arthropathy Code(s): E11.610 - TYPE 2 DIABETES MELLITUS W DIABETIC NEUROPATHIC ARTHROPATHY (3) Acute hypoxemic respiratory failure Code(s): J96.01 - ACUTE RESPIRATORY FAILURE WITH HYPOXIA (4) Elevated troponin Code(s): R74.8 - ABNORMAL LEVELS OF OTHER SERUM ENZYMES (5) Hyperkalemia Code(s): E87.5 - HYPERKALEMIA (6) Shortness of breath Code(s): R06.02 - SHORTNESS OF BREATH (7) Atypical chest pain Code(s): R07.89 - OTHER CHEST PAIN (8) Chest pain Code(s): R07.9 - CHEST PAIN, UNSPECIFIED Qualifiers: Qualified Code(s): R07.82 - Intercostal pain Assessment/Plan Current Active Problems HORACE (acute kidney injury) (Acute) Acute hypoxemic respiratory failure (Acute) Anemia (Acute) Constipation (Acute) Elevated troponin (Acute) Hyperkalemia (Acute) Penicillin allergy (Acute) Pneumonia (Acute) Shortness of breath (Acute) Thyroid enlarged (Acute) Type 2 diabetes mellitus with diabetic neuropathic arthropathy (Acute) Type 2 diabetes mellitus with other diabetic arthropathy (Acute) Abnormal Lab Results 02/22/17 02/22/17 02/23/17 05:05 05:05 13:40 RBC Hgb Hct Chloride 97 L BUN 37 H Creatinine 1.3 H Random Glucose 375 H* D Albumin 2.6 L 2.6 L Ydgef-1-Hzeoqclsu 1.3 H Free T4 1.48 H D SRIDHAR Screen Positive H 02/23/17 02/23/17 13:40 17:00 RBC 3.20 L Hgb 8.8 L Hct 27.2 L Chloride 97 L BUN 36 H Creatinine 1.4 H Random Glucose 379 H* Albumin Miyqg-0-Qoicdhuig Free T4 SRIDHAR Screen Laboratory Results - last 24 hr 02/22/17 02/22/17 02/23/17 05:05 05:05 06:06 WBC RBC Hgb Hct MCV MCH MCHC RDW Plt Count MPV Total Counted Neutrophils % Neutrophils % (Manual) Band Neutrophils % Lymphocytes % Lymphocytes % (Manual) Monocytes % (Manual) Differential Comment Platelet Estimate Platelet Comment Sodium Potassium Chloride Carbon Dioxide Anion Gap BUN Creatinine Creat Clearance w eGFR POC Glucometer 226 Random Glucose Calcium Total Bilirubin AST ALT Alkaline Phosphatase Prot Electrophoresis Serum Total Protein 6.5 Total Protein Albumin 2.6 L Globulin 3.9 Albumin/Globulin Ratio 0.7 Smury-6-Zwqnvpjce 0.3 Dptsf-2-Fbzmjuzim 1.3 H Beta Globulins 1.3 Gamma Globulins 0.9 Free T4 MALLIKA M-Magnus Not observed SRIDHAR Screen Positive H SRIDHAR Homogeneous Pattern 1:80 SRIDHAR Nucleolar Pattern TNP SRIDHAR Midbody Pattern TNP SRIDHAR Speckled Pattern TNP SRIDHAR Centromere Pattern TNP 02/23/17 02/23/17 02/23/17 08:52 11:17 13:40 WBC RBC Hgb Hct MCV MCH MCHC RDW Plt Count MPV Total Counted Neutrophils % Neutrophils % (Manual) Band Neutrophils % Lymphocytes % Lymphocytes % (Manual) Monocytes % (Manual) Differential Comment Platelet Estimate Platelet Comment Sodium 137 Potassium 5.0 Chloride 97 L Carbon Dioxide 31 Anion Gap 9 BUN 37 H Creatinine 1.3 H Creat Clearance w eGFR 40.86 POC Glucometer 264 280 Random Glucose 375 H* D Calcium 8.6 Total Bilirubin 0.3 D AST 25 ALT 47 D Alkaline Phosphatase 64 Prot Electrophoresis Serum Total Protein Total Protein 6.8 Albumin 2.6 L Globulin Albumin/Globulin Ratio Tzadw-0-Fhedjzttv Upgwc-8-Kvpveyoxa Beta Globulins Gamma Globulins Free T4 1.48 H D MALLIKA M-Magnus SRIDHAR Screen SRIDHAR Homogeneous Pattern SRIDHAR Nucleolar Pattern SRIDHAR Midbody Pattern SRIDHAR Speckled Pattern SRIDHAR Centromere Pattern 02/23/17 02/23/17 02/23/17 13:40 13:40 17:00 WBC 9.9 RBC 3.20 L Hgb 8.8 L Hct 27.2 L MCV 85.1 MCH 27.6 MCHC 32.4 RDW 15.4 Plt Count 256 D MPV 10.9 Total Counted 100 Neutrophils % No Result Required. Neutrophils % (Manual) 73.0 Band Neutrophils % 6.0 Lymphocytes % No Result Required. Lymphocytes % (Manual) 10.0 Monocytes % (Manual) 8 Differential Comment Man diff performed Platelet Estimate Adequate Platelet Comment Slide scanned. Sodium 138 Potassium 5.0 Chloride 97 L Carbon Dioxide 31 Anion Gap 10 BUN 36 H Creatinine 1.4 H Creat Clearance w eGFR POC Glucometer Random Glucose 379 H* Calcium 8.8 Total Bilirubin AST ALT Alkaline Phosphatase Prot Electrophoresis Serum Total Protein Total Protein Albumin Globulin Albumin/Globulin Ratio Fwavj-5-Usflzawle Gzqng-2-Qenxeehcd Beta Globulins Gamma Globulins Free T4 Cancelled MALLIKA M-Magnus SRIDHAR Screen SRIDHAR Homogeneous Pattern SRIDHAR Nucleolar Pattern SRIDHAR Midbody Pattern SRIDHAR Speckled Pattern SRIDHAR Centromere Pattern 02/23/17 20:17 WBC RBC Hgb Hct MCV MCH MCHC RDW Plt Count MPV Total Counted Neutrophils % Neutrophils % (Manual) Band Neutrophils % Lymphocytes % Lymphocytes % (Manual) Monocytes % (Manual) Differential Comment Platelet Estimate Platelet Comment Sodium Potassium Chloride Carbon Dioxide Anion Gap BUN Creatinine Creat Clearance w eGFR POC Glucometer 188 Random Glucose Calcium Total Bilirubin AST ALT Alkaline Phosphatase Prot Electrophoresis Serum Total Protein Total Protein Albumin Globulin Albumin/Globulin Ratio Fvafk-8-Sdhfopxpt Fucvy-2-Xzswzmaof Beta Globulins Gamma Globulins Free T4 MALLIKA M-Magnus SRIDHAR Screen SRIDHAR Homogeneous Pattern SRIDHAR Nucleolar Pattern SRIDHAR Midbody Pattern SRIDHAR Speckled Pattern SRIDHAR Centromere Pattern plan: bgm qid novolog insulin coverage Current Medications Generic Name Dose Route Start Last Admin Trade Name Freq PRN Reason Stop Dose Admin Acetaminophen 650 mg 02/20/17 14:18 Tylenol - PO Q4H PRN FEVER OR PAIN Albuterol/Ipratropium 1 amp 02/20/17 14:30 02/23/17 23:02 Duoneb - NEB 1 amp Q4H [facility] Administration Furosemide 40 mg 02/21/17 10:00 02/23/17 09:36 Lasix - PO 40 mg DAILY [facility] Administration Guaifenesin 10 ml 02/20/17 14:19 02/21/17 08:35 Robitussin - PO 10 ml Q4H PRN Administration COUGH Heparin Sodium (Porcine) 5,000 unit 02/20/17 22:00 02/23/17 21:08 Heparin - SQ 5,000 unit BID [facility] Administration Levofloxacin 500 mg in 100 mls @ 100 mls/hr 02/21/17 10:00 02/23/17 09:36 Levaquin 500 Mg Premixed Ivpb - IVPB 100 mls/hr DAILY [facility] Administration Insulin Aspart 25 units 02/22/17 07:00 02/23/17 17:02 Novolog Mix 70/30 Vial SQ 25 units BIDAC [facility] Administration Insulin Aspart 1 vial 02/23/17 22:00 02/23/17 21:09 Novolog Vial Sliding Scale - SQ 5 units ACHS [facility] Administration Protocol Insulin Detemir 50 units 02/23/17 07:15 02/23/17 21:08 Levemir Vial SQ 50 units BID@0700,2200 [facility] Administration Methylprednisolone Sodium Succinate 40 mg 02/20/17 15:00 02/23/17 21:07 Solu-Medrol - IVPUSH 40 mg Q6H-IV [facility] Administration Pantoprazole Sodium 40 mg 02/24/17 10:00 Protonix - PO DAILY [facility] Polyethylene Glycol 17 gm 02/22/17 08:30 02/23/17 21:09 Miralax (For Daily Use) - PO Not Given BID [facility]
[2017-02-24] MEDS: methylPREDNISolone NA SUCC 40 MG/1 ML VIAL IVPUSH SCH ×4 (02:38→21:48)
[2017-02-24] MEDS: INSULIN (NOVOLOG MIX 70/30) 100 UNITS/ML MDV SQ SCH ×2 (06:31→17:14)
[2017-02-24] MEDS: INSULIN SLIDING SCALE (NOVOLOG) 1 VIAL SQ SCH ×4 (06:37→21:49)
[2017-02-24] MEDS: INSULIN DETEMIR 100 UNITS/ML MDV SQ SCH ×2 (06:37→21:49)
[2017-02-24] MEDS ORDERED: INSULIN (NOVOLOG) ASPART 100 UNITS/ML 10ML VIAL ONE ×3 (06:51→17:34)
[2017-02-24 08:45] LABS: MCH 27.1 pg (25.7-33.7); MCHC 32.4 g/dl (32.0-36.0); MEAN CELL VOLUME 83.8 fl (80-96); MEAN PLT VOLUME 9.8 fl (7.5-11.1); PLATELET COUNT 255 K/MM3 (134-434); WHITE BLOOD COUNT 11.8 K/mm3 (4.0-10.0)
[2017-02-24 09:18] LABS: ANION GAP 5 (8-16); CALCIUM 8.3 mg/dL (8.5-10.1); CO2 36 mmol/L (21-32); GLUCOSE,RANDOM 157 mg/dL (74-106)
[2017-02-24 09:22] LABS: FERRITIN 97.78 ng/ml (6.9-282.5); FREE T4 1.55 ng/dl (0.76-1.46)
[2017-02-24] MEDS: PANTOPRAZOLE 40 MG TABLET (FP) PO SCH (09:22)
[2017-02-24] MEDS: FUROSEMIDE 40 MG TABLET (FP) PO SCH (09:22)
[2017-02-24] MEDS: HEPARIN NA (PORCINE) 5,000 UNITS/ML 1ML VIAL SQ SCH ×2 (09:22→21:48)
[2017-02-24] MEDS: POLYETHYLENE GLYCOL 3350 119 GM BTL PO SCH ×2 (09:23→21:50)
[2017-02-24 09:26] LABS: THYROID STIMULATING HORMONE 0.08 uIU/ml (0.358-3.74)
[2017-02-24] MEDS: LEVOFLOXACIN 500 MG IVPB 500 MG/100 ML BAG IVPB SCH (09:41)
--- NOTE | 2017-02-24 10:16 | PN ---
Progress Note, Physician Chief Complaint: patient sitting up in bed getting her nebulizer treatment has not had BM in 6 days still coughing and wheezing - Current Medication List Current Medications: Active Medications Acetaminophen (Tylenol -) 650 mg PO Q4H PRN PRN Reason: FEVER OR PAIN Albuterol/Ipratropium (Duoneb -) 1 amp NEB Q4H [facility] Last Admin: 02/24/17 09:55 Dose: 1 amp Furosemide (Lasix -) 40 mg PO DAILY [facility] Last Admin: 02/24/17 09:22 Dose: 40 mg Guaifenesin (Robitussin -) 10 ml PO Q4H PRN PRN Reason: COUGH Last Admin: 02/21/17 08:35 Dose: 10 ml Heparin Sodium (Porcine) (Heparin -) 5,000 unit SQ BID [facility] Last Admin: 02/24/17 09:22 Dose: 5,000 unit Levofloxacin (Levaquin 500 Mg Premixed Ivpb -) 500 mg in 100 mls @ 100 mls/hr IVPB DAILY [facility] Last Admin: 02/24/17 09:41 Dose: 100 mls/hr Insulin Aspart (Novolog Mix 70/30 Vial) 25 units SQ BIDAC [facility] Last Admin: 02/24/17 06:31 Dose: Not Given Insulin Aspart (Novolog Vial Sliding Scale -) 1 vial SQ ACHS [facility]E PRN Reason: Protocol Last Admin: 02/24/17 06:37 Dose: 4 units Insulin Detemir (Levemir Vial) 50 units SQ BID@0700,2200 [facility] Last Admin: 02/24/17 06:37 Dose: 50 units Methylprednisolone Sodium Succinate (Solu-Medrol -) 40 mg IVPUSH Q6H-IV [facility] Last Admin: 02/24/17 09:23 Dose: 40 mg Pantoprazole Sodium (Protonix -) 40 mg PO DAILY [facility] Last Admin: 02/24/17 09:22 Dose: 40 mg Polyethylene Glycol (Miralax (For Daily Use) -) 17 gm PO BID [facility] Last Admin: 02/24/17 09:23 Dose: Not Given - Objective Vital Signs: Vital Signs Temperature 97.9 F 02/24/17 09:07 Pulse Rate 82 02/24/17 09:07 Respiratory Rate 20 02/24/17 09:07 Blood Pressure 113/59 02/24/17 09:07 O2 Sat by Pulse Oximetry (%) 100 02/23/17 21:00 Cardiovascular: Yes: Regular Rate and Rhythm, S1, S2 Respiratory: Yes: On Nasal O2, Tachypnea, Wheezes Gastrointestinal: Yes: Soft, Abdomen, Obese, Distention Edema: No Neurological: Yes: Alert, Oriented Labs: CBC, BMP 02/24/17 08:00 02/24/17 08:00 INR, PTT INR 1.10 (0.82-1.09) 02/20/17 10:10 Problem List - Problems (1) Pneumonia Assessment/Plan: iv abx oxygen Code(s): J18.9 - PNEUMONIA, UNSPECIFIED ORGANISM Qualifiers: Qualified Code(s): J18.9 - Pneumonia, unspecified organism (2) Shortness of breath Assessment/Plan: possible asthma exacerbation with underlying infection duonebs solumedrol iv same dose oxygen on iv lasix now on po lasix blood work noted cxr shows congestive changes echo- left and right atrium is mildly dilated left ejection fraction normal Code(s): R06.02 - SHORTNESS OF BREATH (3) Cough Assessment/Plan: oxygen bronchodilators steroids Code(s): R05 - COUGH (4) Diabetes mellitus, insulin dependent (IDDM), uncontrolled Assessment/Plan: bgm sliding scale levemir and novolog [id number] noted is 10.7 Code(s): E10.65 - TYPE 1 DIABETES MELLITUS WITH HYPERGLYCEMIA (5) Elevated troponin Assessment/Plan: off tele on regular med surg floor Code(s): R74.8 - ABNORMAL LEVELS OF OTHER SERUM ENZYMES (6) Thyroid enlarged Assessment/Plan: right lobe with multiple nodules TFT noted endocrine is on board Code(s): E04.9 - NONTOXIC GOITER, UNSPECIFIED (7) Constipation Assessment/Plan: fua- noted no intestinal obstruction enema miralax Code(s): K59.00 - CONSTIPATION, UNSPECIFIED Assessment/Plan anemia appreciate heme consult work up pending to get GI workup /once respiratory status improves can be done as outpatient
[2017-02-24] MEDS ORDERED: MINERAL OIL ENEMA 133 ML ENEMA PR ONE (10:45)
[2017-02-24 11:08] LABS: MYELOCYTE 3 % (0-2); PLATELET ESTIMATE ADEQUATE; TOTAL CELLS COUNTED 100
--- NOTE | 2017-02-24 11:38 | PN ---
Progress Note (short form) - Note Progress Note: Patient seen and examined Daughter at bedside she says she is a little better than yesterday Constitutional: Yes: Calm Eyes: Yes: Conjunctiva Clear Cardiovascular: Yes: S1, S2 Respiratory: Yes: On Nasal O2, Wheezes Gastrointestinal: Yes: Soft, Abdomen, Obese Renal/: Yes: WNL Musculoskeletal: Yes: WNL Edema: LLE: 1+, RLE: 1+ Neurological: Yes: Oriented Last Vital Signs Temp Pulse Resp BP Pulse Ox 97.9 F 82 20 113/59 99 02/24/17 09:07 02/24/17 09:07 02/24/17 09:07 02/24/17 09:07 02/24/17 09:00 CBC, BMP 02/24/17 08:00 02/24/17 08:00 Current Medications Generic Name Dose Route Start Last Admin Trade Name Freq PRN Reason Stop Dose Admin Acetaminophen 650 mg 02/20/17 14:18 Tylenol - PO Q4H PRN FEVER OR PAIN Albuterol/Ipratropium 1 amp 02/20/17 14:30 02/24/17 09:55 Duoneb - NEB 1 amp Q4H [facility] Administration Furosemide 40 mg 02/21/17 10:00 02/24/17 09:22 Lasix - PO 40 mg DAILY [facility] Administration Guaifenesin 10 ml 02/20/17 14:19 02/21/17 08:35 Robitussin - PO 10 ml Q4H PRN Administration COUGH Heparin Sodium (Porcine) 5,000 unit 02/20/17 22:00 02/24/17 09:22 Heparin - SQ 5,000 unit BID [facility]E Administration Levofloxacin 500 mg in 100 mls @ 100 mls/hr 02/21/17 10:00 02/24/17 09:41 Levaquin 500 Mg Premixed Ivpb - IVPB 100 mls/hr DAILY [facility] Administration Insulin Aspart 25 units 02/22/17 07:00 02/24/17 06:31 Novolog Mix 70/30 Vial SQ Not Given BIDAC [facility]E Insulin Aspart 1 vial 02/23/17 22:00 02/24/17 06:37 Novolog Vial Sliding Scale - SQ 4 units ACHS ALEE Administration Protocol Insulin Detemir 50 units 02/23/17 07:15 02/24/17 06:37 Levemir Vial SQ 50 units BID@0700,2200 [facility] Administration Methylprednisolone Sodium Succinate 40 mg 02/20/17 15:00 02/24/17 09:23 Solu-Medrol - IVPUSH 40 mg Q6H-IV [facility]E Administration Pantoprazole Sodium 40 mg 02/24/17 10:00 02/24/17 09:22 Protonix - PO 40 mg DAILY [facility] Administration Polyethylene Glycol 17 gm 02/22/17 08:30 02/24/17 09:23 Miralax (For Daily Use) - PO Not Given BID [facility] 66 y/o patient with obesity,HTN, Hyperlipidemia, DM, COPD exacerbation, comes in with shortness of breath/COPD exacerbation ? pneumonia Anemia--Hgb 8.8, normocytic. normal platelets/WBC anemia of chronic disease +/- gi losses low iron saturation appreciate GI c/s needs age appropriate cancer screening transfuse for hgb <8
--- NOTE | 2017-02-24 15:01 | PN ---
Progress Note (short form) - Note Progress Note: overall less cough Vital Signs Period Temp Pulse Resp BP Sys/Lee Pulse Ox Last 24 Hr 97.7 F-98.2 F 62-89 18-20 113-167/59-83 97-100 cor-rrr lungs scattred rhonchi abd soft,nt ext trace edema CBC, BMP 02/24/17 08:00 02/24/17 08:00 Microbiology 02/20/17 10:00 Blood - Peripheral Venous Blood Culture - Preliminary NO GROWTH OBTAINED AFTER 96 HOURS, INCUBATION TO CONTINUE FOR 1 DAYS. 02/20/17 10:00 Blood - Peripheral Venous Blood Culture - Preliminary NO GROWTH OBTAINED AFTER 96 HOURS, INCUBATION TO CONTINUE FOR 1 DAYS. 02/21/17 11:15 Nasopharyngeal Swab Influenza Types A,B Antigen (ELSIE) - Final 02/21/17 11:15 Nasopharyngeal Swab - Final 02/20/17 14:00 Urine - Urine Clean Catch Urine Culture - Final NO GROWTH OBTAINED a/p bilateral infiltrates-continue levaquin for CAP acute hypoxemic respiratory failure asthma ?CHF thyroid nodule anemia (new?) HORACE penicillin allergy continue levaquin overall improving Problem List - Problems (1) Pneumonia Code(s): J18.9 - PNEUMONIA, UNSPECIFIED ORGANISM Qualifiers: Pneumonia type: due to unspecified organism Laterality: bilateral Lung location: unspecified part of lung Qualified Code(s): J18.9 - Pneumonia, unspecified organism (2) Acute hypoxemic respiratory failure Code(s): J96.01 - ACUTE RESPIRATORY FAILURE WITH HYPOXIA (3) HORACE (acute kidney injury) Code(s): N17.9 - ACUTE KIDNEY FAILURE, UNSPECIFIED (4) Anemia Code(s): D64.9 - ANEMIA, UNSPECIFIED (5) Penicillin allergy Code(s): Z88.0 - ALLERGY STATUS TO PENICILLIN
--- NOTE | 2017-02-24 15:08 | PN ---
Progress Note, Physician History of Present Illness: pulmonary alert,feeling better,less dyspneic,+cough,bronchospasm - Current Medication List Current Medications: Active Medications Acetaminophen (Tylenol -) 650 mg PO Q4H PRN PRN Reason: FEVER OR PAIN Albuterol/Ipratropium (Duoneb -) 1 amp NEB Q4H [facility] Last Admin: 02/24/17 14:06 Dose: 1 amp Furosemide (Lasix -) 40 mg PO DAILY [facility] Last Admin: 02/24/17 09:22 Dose: 40 mg Guaifenesin (Robitussin -) 10 ml PO Q4H PRN PRN Reason: COUGH Last Admin: 02/21/17 08:35 Dose: 10 ml Heparin Sodium (Porcine) (Heparin -) 5,000 unit SQ BID [facility] Last Admin: 02/24/17 09:22 Dose: 5,000 unit Levofloxacin (Levaquin 500 Mg Premixed Ivpb -) 500 mg in 100 mls @ 100 mls/hr IVPB DAILY [facility] Last Admin: 02/24/17 09:41 Dose: 100 mls/hr Insulin Aspart (Novolog Mix 70/30 Vial) 25 units SQ BIDAC [facility] Last Admin: 02/24/17 06:31 Dose: Not Given Insulin Aspart (Novolog Vial Sliding Scale -) 1 vial SQ ACHS [facility]E PRN Reason: Protocol Last Admin: 02/24/17 11:58 Dose: 9 units Insulin Detemir (Levemir Vial) 50 units SQ BID@0700,2200 [facility] Last Admin: 02/24/17 06:37 Dose: 50 units Methylprednisolone Sodium Succinate (Solu-Medrol -) 40 mg IVPUSH Q6H-IV [facility] Last Admin: 02/24/17 14:17 Dose: 40 mg Pantoprazole Sodium (Protonix -) 40 mg PO DAILY [facility] Last Admin: 02/24/17 09:22 Dose: 40 mg Polyethylene Glycol (Miralax (For Daily Use) -) 17 gm PO BID [facility] Last Admin: 02/24/17 09:23 Dose: Not Given - Objective Vital Signs: Vital Signs Temperature 97.9 F 02/24/17 09:07 Pulse Rate 82 02/24/17 09:07 Respiratory Rate 20 02/24/17 09:07 Blood Pressure 113/59 02/24/17 09:07 O2 Sat by Pulse Oximetry (%) 99 02/24/17 09:00 Constitutional: Yes: Calm, Obese Eyes: Yes: WNL HENT: Yes: WNL Neck: Yes: WNL Cardiovascular: Yes: Regular Rate and Rhythm, S1, S2 Respiratory: Yes: Wheezes (few scattered carmella wheezes) Gastrointestinal: Yes: Normal Bowel Sounds, Soft Extremities: Yes: WNL Edema: No Labs: CBC, BMP 02/24/17 08:00 02/24/17 08:00 INR, PTT INR 1.10 (0.82-1.09) 02/20/17 10:10 Problem List - Problems (1) Acute hypoxemic respiratory failure Code(s): J96.01 - ACUTE RESPIRATORY FAILURE WITH HYPOXIA (2) Pneumonia Code(s): J18.9 - PNEUMONIA, UNSPECIFIED ORGANISM Qualifiers: Pneumonia type: due to unspecified organism Laterality: bilateral Lung location: unspecified part of lung Qualified Code(s): J18.9 - Pneumonia, unspecified organism (3) Shortness of breath Code(s): R06.02 - SHORTNESS OF BREATH (4) Chest pain Code(s): R07.9 - CHEST PAIN, UNSPECIFIED Qualifiers: Chest pain type: intercostal pain Qualified Code(s): R07.82 - Intercostal pain (5) Cough Code(s): R05 - COUGH (6) Diabetes mellitus, insulin dependent (IDDM), uncontrolled Code(s): E10.65 - TYPE 1 DIABETES MELLITUS WITH HYPERGLYCEMIA (7) Dizziness Code(s): R42 - DIZZINESS AND GIDDINESS (8) HLD (hyperlipidemia) Code(s): E78.5 - HYPERLIPIDEMIA, UNSPECIFIED (9) Hypertension Code(s): I10 - ESSENTIAL (PRIMARY) HYPERTENSION Assessment/Plan IMP ACUTE HYPOXEMIC RESPIRATORY FAILURE IMPROVING PNEUMONIA ASTHMA HORACE ELEVATED TROPONIN LEVEL ? CHF DM PILMONARY HTN OSAS PLAN INHALED BRONCHODILATORS O2 ANTIBIOTICS CONTINUE STEROIDS LASIX F/U CHEST X-RAYS MONITOR LYTES,RENAL FUNCTION SLEEP SCREEN DR MANN Problem List - Problems (1) Acute hypoxemic respiratory failure Code(s): J96.01 - ACUTE RESPIRATORY FAILURE WITH HYPOXIA (2) Pneumonia Code(s): J18.9 - PNEUMONIA, UNSPECIFIED ORGANISM Qualifiers: Pneumonia type: due to unspecified organism Laterality: bilateral Lung location: unspecified part of lung Qualified Code(s): J18.9 - Pneumonia, unspecified organism (3) Shortness of breath Code(s): R06.02 - SHORTNESS OF BREATH (4) Chest pain Code(s): R07.9 - CHEST PAIN, UNSPECIFIED Qualifiers: Chest pain type: intercostal pain Qualified Code(s): R07.82 - Intercostal pain (5) Cough Code(s): R05 - COUGH (6) Diabetes mellitus, insulin dependent (IDDM), uncontrolled Code(s): E10.65 - TYPE 1 DIABETES MELLITUS WITH HYPERGLYCEMIA (7) Dizziness Code(s): R42 - DIZZINESS AND GIDDINESS (8) HLD (hyperlipidemia) Code(s): E78.5 - HYPERLIPIDEMIA, UNSPECIFIED (9) Hypertension Code(s): I10 - ESSENTIAL (PRIMARY) HYPERTENSION
[2017-02-24] MEDS ORDERED: BISACODYL 5 MG TABLET.DR (FP) PO ONE (17:29)
[2017-02-24] MEDS ORDERED: INSULIN (NOVOLOG MIX 70/30) 100 UNITS/ML MDV SQ ONE (17:34)
--- NOTE | 2017-02-24 17:34 | PN ---
Progress Note, Physician History of Present Illness: Pt seen and examined at bedside. She feels that her breathing is a little better. She denies dysuria. - Current Medication List Current Medications: Active Medications Acetaminophen (Tylenol -) 650 mg PO Q4H PRN PRN Reason: FEVER OR PAIN Albuterol/Ipratropium (Duoneb -) 1 amp NEB Q4H [facility] Last Admin: 02/24/17 14:06 Dose: 1 amp Furosemide (Lasix -) 40 mg PO DAILY [facility] Last Admin: 02/24/17 09:22 Dose: 40 mg Guaifenesin (Robitussin -) 10 ml PO Q4H PRN PRN Reason: COUGH Last Admin: 02/21/17 08:35 Dose: 10 ml Heparin Sodium (Porcine) (Heparin -) 5,000 unit SQ BID [facility] Last Admin: 02/24/17 09:22 Dose: 5,000 unit Levofloxacin (Levaquin 500 Mg Premixed Ivpb -) 500 mg in 100 mls @ 100 mls/hr IVPB DAILY [facility] Last Admin: 02/24/17 09:41 Dose: 100 mls/hr Insulin Aspart (Novolog Mix 70/30 Vial) 25 units SQ BIDAC [facility] Last Admin: 02/24/17 17:14 Dose: 25 units Insulin Aspart (Novolog Vial Sliding Scale -) 1 vial SQ ACHS [facility]E PRN Reason: Protocol Last Admin: 02/24/17 17:14 Dose: 12 units Insulin Detemir (Levemir Vial) 50 units SQ BID@0700,2200 [facility] Last Admin: 02/24/17 06:37 Dose: 50 units Methylprednisolone Sodium Succinate (Solu-Medrol -) 40 mg IVPUSH Q6H-IV [facility] Last Admin: 02/24/17 14:17 Dose: 40 mg Pantoprazole Sodium (Protonix -) 40 mg PO DAILY [facility] Last Admin: 02/24/17 09:22 Dose: 40 mg Polyethylene Glycol (Miralax (For Daily Use) -) 17 gm PO BID [facility] Last Admin: 02/24/17 09:23 Dose: Not Given - Objective Vital Signs: Vital Signs Temperature 98.3 F 02/24/17 15:06 Pulse Rate 87 02/24/17 15:06 Respiratory Rate 20 02/24/17 15:06 Blood Pressure 146/67 02/24/17 15:06 O2 Sat by Pulse Oximetry (%) 99 02/24/17 09:00 Constitutional: Yes: Calm Eyes: Yes: Conjunctiva Clear HENT: Yes: Atraumatic Neck: Yes: Supple Cardiovascular: Yes: S1, S2 Respiratory: Yes: On Nasal O2, Wheezes Gastrointestinal: Yes: Soft, Abdomen, Obese Genitourinary: Yes: WNL Musculoskeletal: Yes: WNL Edema: Yes Edema: LLE: Trace, RLE: Trace Neurological: Yes: Oriented Psychiatric: Yes: Oriented Labs: CBC, BMP 02/24/17 08:00 02/24/17 08:00 INR, PTT INR 1.10 (0.82-1.09) 02/20/17 10:10 Problem List - Problems (1) Hyperkalemia Code(s): E87.5 - HYPERKALEMIA (2) Acute hypoxemic respiratory failure Code(s): J96.01 - ACUTE RESPIRATORY FAILURE WITH HYPOXIA (3) Pneumonia Code(s): J18.9 - PNEUMONIA, UNSPECIFIED ORGANISM Qualifiers: Pneumonia type: due to unspecified organism Laterality: bilateral Lung location: unspecified part of lung Qualified Code(s): J18.9 - Pneumonia, unspecified organism (4) Shortness of breath Code(s): R06.02 - SHORTNESS OF BREATH (5) Diabetes mellitus, insulin dependent (IDDM), uncontrolled Code(s): E10.65 - TYPE 1 DIABETES MELLITUS WITH HYPERGLYCEMIA Assessment/Plan Current Medications Generic Name Dose Route Start Last Admin Trade Name Freq PRN Reason Stop Dose Admin Acetaminophen 650 mg 02/20/17 14:18 Tylenol - PO Q4H PRN FEVER OR PAIN Albuterol/Ipratropium 1 amp 02/20/17 14:30 02/24/17 14:06 Duoneb - NEB 1 amp Q4H [facility] Administration Furosemide 40 mg 02/21/17 10:00 02/24/17 09:22 Lasix - PO 40 mg DAILY [facility] Administration Guaifenesin 10 ml 02/20/17 14:19 02/21/17 08:35 Robitussin - PO 10 ml Q4H PRN Administration COUGH Heparin Sodium (Porcine) 5,000 unit 02/20/17 22:00 02/24/17 09:22 Heparin - SQ 5,000 unit BID [facility] Administration Levofloxacin 500 mg in 100 mls @ 100 mls/hr 02/21/17 10:00 02/24/17 09:41 Levaquin 500 Mg Premixed Ivpb - IVPB 100 mls/hr DAILY [facility] Administration Insulin Aspart 25 units 02/22/17 07:00 02/24/17 17:14 Novolog Mix 70/30 Vial SQ 25 units BIDAC [facility] Administration Insulin Aspart 1 vial 02/23/17 22:00 02/24/17 17:14 Novolog Vial Sliding Scale - SQ 12 units ACHS [facility]E Administration Protocol Insulin Detemir 50 units 02/23/17 07:15 02/24/17 06:37 Levemir Vial SQ 50 units BID@0700,2200 [facility] Administration Methylprednisolone Sodium Succinate 40 mg 02/20/17 15:00 02/24/17 14:17 Solu-Medrol - IVPUSH 40 mg Q6H-IV [facility] Administration Pantoprazole Sodium 40 mg 02/24/17 10:00 02/24/17 09:22 Protonix - PO 40 mg DAILY [facility] Administration Polyethylene Glycol 17 gm 02/22/17 08:30 02/24/17 09:23 Miralax (For Daily Use) - PO Not Given BID [facility] Laboratory Tests 02/21/17 02/22/17 02/22/17 18:00 05:05 05:05 Protein/Creatinin Ratio 4.91 MALLIKA M-Magnus Not observed SRIDHAR Screen c-ANCA Pending Proteinase 3 (PR3) Pending p-ANCA Pending Atypical p-ANCA Pending Myeloperoxidase Ab Pending Free [place] LC, Quant Free Lambda LC, Quant Free [place]/Lambda Ratio 02/22/17 02/24/17 05:05 08:00 Protein/Creatinin Ratio MALLIKA M-Magnus SRIDHAR Screen Positive H c-ANCA Proteinase 3 (PR3) p-ANCA Atypical p-ANCA Myeloperoxidase Ab Free [place] LC, Quant Pending Free Lambda LC, Quant Pending Free [place]/Lambda Ratio Pending Impression 1. hyperkalemia 2. vascular congestion 3. DM 4. PNA 5. obesity 6. HTN 7. chest pain 8. proteinuria 9. CKD Plan - creatinine is improved - cont lasix - renal workup in progress - will see pt in office - can be discharged when pulmonary status is stabilized - will need better glucose control - recommend kidney biopsy once she is stable, as outpt - renal ultrasound pending - will follow Dr Sahu
[2017-02-24] MEDS ORDERED: PT OWN MED DRAWER 7, Y5N ONE (17:35)
[2017-02-25] MEDS: ALBUTEROL SO4 2.5/IPRATROPIUM 0.5 INH SOL 3 ML VIAL.NEB. NEB SCH ×6 (02:30→22:19)
[2017-02-25] MEDS: methylPREDNISolone NA SUCC 40 MG/1 ML VIAL IVPUSH SCH ×3 (03:01→17:59)
[2017-02-25] MEDS: INSULIN DETEMIR 100 UNITS/ML MDV SQ SCH ×2 (06:37→22:46)
[2017-02-25] MEDS: INSULIN SLIDING SCALE (NOVOLOG) 1 VIAL SQ SCH ×4 (06:37→22:45)
[2017-02-25] MEDS: INSULIN (NOVOLOG MIX 70/30) 100 UNITS/ML MDV SQ SCH ×2 (06:38→17:00)
[2017-02-25] MEDS ORDERED: INSULIN (NOVOLOG) ASPART 100 UNITS/ML 10ML VIAL ONE ×2 (07:06→11:39)
[2017-02-25 07:36] LABS: MCH 27.2 pg (25.7-33.7); MCHC 32.2 g/dl (32.0-36.0); MEAN CELL VOLUME 84.4 fl (80-96); MEAN PLT VOLUME 10.2 fl (7.5-11.1); PLATELET COUNT 263 K/MM3 (134-434); RDW 15.4 % (11.6-15.6); WHITE BLOOD COUNT 10.1 K/mm3 (4.0-10.0)
[2017-02-25 07:46] LABS: ALBUMIN 2.5 g/dl (3.4-5.0); ANION GAP 4 (8-16); BILIRUBIN,TOTAL 0.6 mg/dL (0.2-1.0); CALCIUM 8.3 mg/dL (8.5-10.1); CO2 38 mmol/L (21-32); CREATININE 1.1 mg/dL (0.55-1.02); GLUCOSE,RANDOM 191 mg/dL (74-106); SGOT/AST 11 U/L (15-37); SGPT/ALT 37 U/L (12-78); TOT PROT 6.6 g/dl (6.4-8.2)
[2017-02-25 07:47] LABS: ALK PHOS 55 U/L (45-117)
[2017-02-25] MEDS: LEVOFLOXACIN 500 MG IVPB 500 MG/100 ML BAG IVPB SCH (10:18)
[2017-02-25] MEDS: POLYETHYLENE GLYCOL 3350 119 GM BTL PO SCH ×2 (10:19→22:48)
[2017-02-25] MEDS: HEPARIN NA (PORCINE) 5,000 UNITS/ML 1ML VIAL SQ SCH ×2 (10:19→22:45)
[2017-02-25] MEDS: PANTOPRAZOLE 40 MG TABLET (FP) PO SCH (10:19)
[2017-02-25] MEDS: FUROSEMIDE 40 MG TABLET (FP) PO SCH (10:19)
[2017-02-25 11:14] LABS: METAMYELOCYTE 1 % (0-2); MYELOCYTE 2 % (0-2); PLATELET ESTIMATE ADEQUATE; TOTAL CELLS COUNTED 100
--- NOTE | 2017-02-25 11:33 | PN ---
Progress Note, Physician History of Present Illness: awake, alert Supine in bed No c/o dyspnea + cough noted - Current Medication List Current Medications: Active Medications Acetaminophen (Tylenol -) 650 mg PO Q4H PRN PRN Reason: FEVER OR PAIN Albuterol/Ipratropium (Duoneb -) 1 amp NEB Q4H [facility] Last Admin: 02/25/17 10:53 Dose: 1 amp Furosemide (Lasix -) 40 mg PO DAILY [facility] Last Admin: 02/25/17 10:19 Dose: 40 mg Guaifenesin (Robitussin -) 10 ml PO Q4H PRN PRN Reason: COUGH Last Admin: 02/21/17 08:35 Dose: 10 ml Heparin Sodium (Porcine) (Heparin -) 5,000 unit SQ BID [facility] Last Admin: 02/25/17 10:19 Dose: 5,000 unit Levofloxacin (Levaquin 500 Mg Premixed Ivpb -) 500 mg in 100 mls @ 100 mls/hr IVPB DAILY [facility] Last Admin: 02/25/17 10:18 Dose: 100 mls/hr Insulin Aspart (Novolog Mix 70/30 Vial) 25 units SQ BIDAC [facility] Last Admin: 02/25/17 06:38 Dose: 25 units Insulin Aspart (Novolog Vial Sliding Scale -) 1 vial SQ ACHS [facility]LEE PRN Reason: Protocol Last Admin: 02/25/17 06:37 Dose: 5 units Insulin Detemir (Levemir Vial) 50 units SQ BID@0700,2200 [facility] Last Admin: 02/25/17 06:37 Dose: 50 units Methylprednisolone Sodium Succinate (Solu-Medrol -) 40 mg IVPUSH Q6H-IV [facility] Last Admin: 02/25/17 10:00 Dose: 40 mg Pantoprazole Sodium (Protonix -) 40 mg PO DAILY [facility] Last Admin: 02/25/17 10:19 Dose: 40 mg Polyethylene Glycol (Miralax (For Daily Use) -) 17 gm PO BID [facility] Last Admin: 02/25/17 10:19 Dose: 17 gm - Objective Vital Signs: Vital Signs Temperature 98.3 F 02/25/17 10:10 Pulse Rate 81 02/25/17 10:10 Respiratory Rate 20 02/25/17 10:10 Blood Pressure 151/78 02/25/17 10:10 O2 Sat by Pulse Oximetry (%) 98 02/24/17 21:00 Constitutional: Yes: Obese Eyes: Yes: Conjunctiva Clear Cardiovascular: Yes: Regular Rate and Rhythm, S1, S2 Respiratory: Yes: Rhonchi, Other (+scatterred rhonchi + rales R base) Gastrointestinal: Yes: Normal Bowel Sounds, Soft, Abdomen, Obese Edema: Yes Labs: CBC, BMP 02/25/17 06:00 02/25/17 06:00 INR, PTT INR 1.10 (0.82-1.09) 02/20/17 10:10 Assessment/Plan Bilateral pneumonia ? CHF Respiratory insufficiency Leukocytosis- improved PCN allergy Continue empiric levaquin
--- NOTE | 2017-02-25 12:12 | PN ---
Progress Note, Physician Chief Complaint: THIS IS MY FIRST ENCOUNTER WITH THIS PATIENT CHART AND EVENTS REVIEWED YONY RODAS BEDSIDE - Current Medication List Current Medications: Active Medications Acetaminophen (Tylenol -) 650 mg PO Q4H PRN PRN Reason: FEVER OR PAIN Albuterol/Ipratropium (Duoneb -) 1 amp NEB Q4H [facility] Last Admin: 02/25/17 10:53 Dose: 1 amp Furosemide (Lasix -) 40 mg PO DAILY [facility] Last Admin: 02/25/17 10:19 Dose: 40 mg Guaifenesin (Robitussin -) 10 ml PO Q4H PRN PRN Reason: COUGH Last Admin: 02/21/17 08:35 Dose: 10 ml Heparin Sodium (Porcine) (Heparin -) 5,000 unit SQ BID [facility] Last Admin: 02/25/17 10:19 Dose: 5,000 unit Levofloxacin (Levaquin 500 Mg Premixed Ivpb -) 500 mg in 100 mls @ 100 mls/hr IVPB DAILY [facility] Last Admin: 02/25/17 10:18 Dose: 100 mls/hr Insulin Aspart (Novolog Mix 70/30 Vial) 25 units SQ BIDAC [facility] Last Admin: 02/25/17 06:38 Dose: 25 units Insulin Aspart (Novolog Vial Sliding Scale -) 1 vial SQ ACHS [facility]E PRN Reason: Protocol Last Admin: 02/25/17 12:03 Dose: 5 units Insulin Detemir (Levemir Vial) 50 units SQ BID@0700,2200 [facility] Last Admin: 02/25/17 06:37 Dose: 50 units Methylprednisolone Sodium Succinate (Solu-Medrol -) 40 mg IVPUSH Q6H-IV [facility] Last Admin: 02/25/17 10:00 Dose: 40 mg Pantoprazole Sodium (Protonix -) 40 mg PO DAILY [facility] Last Admin: 02/25/17 10:19 Dose: 40 mg Polyethylene Glycol (Miralax (For Daily Use) -) 17 gm PO BID [facility] Last Admin: 02/25/17 10:19 Dose: 17 gm - Objective Vital Signs: Vital Signs Temperature 98.3 F 02/25/17 10:10 Pulse Rate 81 02/25/17 10:10 Respiratory Rate 20 02/25/17 10:10 Blood Pressure 151/78 02/25/17 10:10 O2 Sat by Pulse Oximetry (%) 98 02/24/17 21:00 Constitutional: Yes: Mild Distress Eyes: Yes: WNL HENT: Yes: WNL, Tonsillar Exudate Cardiovascular: Yes: WNL Respiratory: Yes: Cough, Poor Air Entry, SOB Gastrointestinal: Yes: WNL Genitourinary: Yes: WNL Musculoskeletal: Yes: Muscle Weakness Extremities: Yes: WNL Edema: Yes Edema: LLE: 1+, RLE: 1+ Peripheral Pulses WNL: Yes Integumentary: Yes: WNL Wound/Incision: Yes: Clean/Dry Neurological: Yes: WNL ...Motor Strength: WNL Psychiatric: Yes: WNL Labs: CBC, BMP 02/25/17 06:00 02/25/17 06:00 INR, PTT INR 1.10 (0.82-1.09) 02/20/17 10:10 Problem List - Problems (1) HORACE (acute kidney injury) Code(s): N17.9 - ACUTE KIDNEY FAILURE, UNSPECIFIED (2) Acute hypoxemic respiratory failure Code(s): J96.01 - ACUTE RESPIRATORY FAILURE WITH HYPOXIA (3) Anemia Code(s): D64.9 - ANEMIA, UNSPECIFIED Qualifiers: Chronic kidney disease stage: unspecified stage (4) Constipation Code(s): K59.00 - CONSTIPATION, UNSPECIFIED (5) Hyperkalemia Code(s): E87.5 - HYPERKALEMIA (6) Pneumonia Code(s): J18.9 - PNEUMONIA, UNSPECIFIED ORGANISM Qualifiers: Pneumonia type: due to unspecified organism Laterality: bilateral Lung location: unspecified part of lung Qualified Code(s): J18.9 - Pneumonia, unspecified organism (7) Diabetes mellitus, insulin dependent (IDDM), uncontrolled Code(s): E10.65 - TYPE 1 DIABETES MELLITUS WITH HYPERGLYCEMIA Qualifiers: Chronic kidney disease stage: unspecified stage (8) Hypertension Code(s): I10 - ESSENTIAL (PRIMARY) HYPERTENSION Assessment/Plan STEROIDS IV MONITOR BGM IV ABX NEBS OOB TO CHAIR SPIROMETRY
--- NOTE | 2017-02-25 14:37 | PN ---
Progress Note, Physician History of Present Illness: pulmonary alert,comfortable,-resp distress. sleep screen +moderate ubaldo, ahi 16 - Current Medication List Current Medications: Active Medications Acetaminophen (Tylenol -) 650 mg PO Q4H PRN PRN Reason: FEVER OR PAIN Albuterol/Ipratropium (Duoneb -) 1 amp NEB Q4H [facility] Last Admin: 02/25/17 14:09 Dose: 1 amp Furosemide (Lasix -) 40 mg PO DAILY [facility] Last Admin: 02/25/17 10:19 Dose: 40 mg Guaifenesin (Robitussin -) 10 ml PO Q4H PRN PRN Reason: COUGH Last Admin: 02/21/17 08:35 Dose: 10 ml Heparin Sodium (Porcine) (Heparin -) 5,000 unit SQ BID [facility] Last Admin: 02/25/17 10:19 Dose: 5,000 unit Levofloxacin (Levaquin 500 Mg Premixed Ivpb -) 500 mg in 100 mls @ 100 mls/hr IVPB DAILY [facility] Last Admin: 02/25/17 10:18 Dose: 100 mls/hr Insulin Aspart (Novolog Mix 70/30 Vial) 25 units SQ BIDAC [facility] Last Admin: 02/25/17 06:38 Dose: 25 units Insulin Aspart (Novolog Vial Sliding Scale -) 1 vial SQ ACHS [facility] PRN Reason: Protocol Last Admin: 02/25/17 12:03 Dose: 5 units Insulin Detemir (Levemir Vial) 50 units SQ BID@0700,2200 [facility] Last Admin: 02/25/17 06:37 Dose: 50 units Methylprednisolone Sodium Succinate (Solu-Medrol -) 40 mg IVPUSH Q6H-IV [facility] Last Admin: 02/25/17 10:00 Dose: 40 mg Pantoprazole Sodium (Protonix -) 40 mg PO DAILY [facility] Last Admin: 02/25/17 10:19 Dose: 40 mg Polyethylene Glycol (Miralax (For Daily Use) -) 17 gm PO BID [facility] Last Admin: 02/25/17 10:19 Dose: 17 gm - Objective Vital Signs: Vital Signs Temperature 98.3 F 02/25/17 10:10 Pulse Rate 81 02/25/17 10:10 Respiratory Rate 20 02/25/17 10:10 Blood Pressure 151/78 02/25/17 10:10 O2 Sat by Pulse Oximetry (%) 99 02/25/17 09:00 Constitutional: Yes: Calm, Obese Eyes: Yes: WNL HENT: Yes: WNL Neck: Yes: WNL Cardiovascular: Yes: Regular Rate and Rhythm, S1, S2 Respiratory: Yes: Wheezes (scattered carmella wheezes) Gastrointestinal: Yes: Normal Bowel Sounds, Soft Extremities: Yes: WNL Edema: No Labs: CBC, BMP 02/25/17 06:00 02/25/17 06:00 INR, PTT INR 1.10 (0.82-1.09) 02/20/17 10:10 Problem List - Problems (1) Acute hypoxemic respiratory failure Code(s): J96.01 - ACUTE RESPIRATORY FAILURE WITH HYPOXIA (2) Pneumonia Code(s): J18.9 - PNEUMONIA, UNSPECIFIED ORGANISM Qualifiers: Pneumonia type: due to unspecified organism Laterality: bilateral Lung location: unspecified part of lung Qualified Code(s): J18.9 - Pneumonia, unspecified organism (3) Shortness of breath Code(s): R06.02 - SHORTNESS OF BREATH (4) Chest pain Code(s): R07.9 - CHEST PAIN, UNSPECIFIED Qualifiers: Chest pain type: intercostal pain Qualified Code(s): R07.82 - Intercostal pain (5) Cough Code(s): R05 - COUGH (6) Diabetes mellitus, insulin dependent (IDDM), uncontrolled Code(s): E10.65 - TYPE 1 DIABETES MELLITUS WITH HYPERGLYCEMIA Qualifiers: Chronic kidney disease stage: unspecified stage (7) Dizziness Code(s): R42 - DIZZINESS AND GIDDINESS (8) HLD (hyperlipidemia) Code(s): E78.5 - HYPERLIPIDEMIA, UNSPECIFIED (9) Hypertension Code(s): I10 - ESSENTIAL (PRIMARY) HYPERTENSION Assessment/Plan IMP ACUTE HYPOXEMIC RESPIRATORY FAILURE IMPROVING PNEUMONIA ASTHMA HORACE ELEVATED TROPONIN LEVEL ? CHF DM PILMONARY HTN OSAS PLAN INHALED BRONCHODILATORS O2 ANTIBIOTICS STEROID TAPER LASIX F/U CHEST X-RAYS MONITOR LYTES,RENAL FUNCTION FORMAL SLEEP STUDIES OUTPATIENT DR MANN Problem List - Problems (1) Acute hypoxemic respiratory failure Code(s): J96.01 - ACUTE RESPIRATORY FAILURE WITH HYPOXIA (2) Pneumonia Code(s): J18.9 - PNEUMONIA, UNSPECIFIED ORGANISM Qualifiers: Pneumonia type: due to unspecified organism Laterality: bilateral Lung location: unspecified part of lung Qualified Code(s): J18.9 - Pneumonia, unspecified organism (3) Shortness of breath Code(s): R06.02 - SHORTNESS OF BREATH (4) Chest pain Code(s): R07.9 - CHEST PAIN, UNSPECIFIED Qualifiers: Chest pain type: intercostal pain Qualified Code(s): R07.82 - Intercostal pain (5) Cough Code(s): R05 - COUGH (6) Diabetes mellitus, insulin dependent (IDDM), uncontrolled Code(s): E10.65 - TYPE 1 DIABETES MELLITUS WITH HYPERGLYCEMIA (7) Dizziness Code(s): R42 - DIZZINESS AND GIDDINESS (8) HLD (hyperlipidemia) Code(s): E78.5 - HYPERLIPIDEMIA, UNSPECIFIED (9) Hypertension Code(s): I10 - ESSENTIAL (PRIMARY) HYPERTENSION
--- NOTE | 2017-02-25 23:07 | PN ---
Progress Note, Physician Chief Complaint: breathing improved ambulating yet cough persist,sugar improved History of Present Illness: dm,morbid obesity,chf,pneurmonia - Current Medication List Current Medications: Active Medications Acetaminophen (Tylenol -) 650 mg PO Q4H PRN PRN Reason: FEVER OR PAIN Albuterol/Ipratropium (Duoneb -) 1 amp NEB Q4H [facility] Last Admin: 02/25/17 22:19 Dose: 1 amp Furosemide (Lasix -) 40 mg PO DAILY [facility] Last Admin: 02/25/17 10:19 Dose: 40 mg Guaifenesin (Robitussin -) 10 ml PO Q4H PRN PRN Reason: COUGH Last Admin: 02/21/17 08:35 Dose: 10 ml Heparin Sodium (Porcine) (Heparin -) 5,000 unit SQ BID [facility] Last Admin: 02/25/17 22:45 Dose: 5,000 unit Levofloxacin (Levaquin 500 Mg Premixed Ivpb -) 500 mg in 100 mls @ 100 mls/hr IVPB DAILY [facility] Last Admin: 02/25/17 10:18 Dose: 100 mls/hr Insulin Aspart (Novolog Mix 70/30 Vial) 25 units SQ BIDAC [facility] Last Admin: 02/25/17 17:00 Dose: 25 units Insulin Aspart (Novolog Vial Sliding Scale -) 1 vial SQ ACHS ALEE PRN Reason: Protocol Last Admin: 02/25/17 22:45 Dose: 8 units Insulin Detemir (Levemir Vial) 50 units SQ BID@0700,2200 [facility] Last Admin: 02/25/17 22:46 Dose: 50 units Methylprednisolone Sodium Succinate (Solu-Medrol -) 40 mg IVPUSH Q8H-IV [facility] Last Admin: 02/25/17 17:59 Dose: 40 mg Pantoprazole Sodium (Protonix -) 40 mg PO DAILY [facility] Last Admin: 02/25/17 10:19 Dose: 40 mg Polyethylene Glycol (Miralax (For Daily Use) -) 17 gm PO BID [facility] Last Admin: 02/25/17 22:48 Dose: Not Given - Objective Vital Signs: Vital Signs Temperature 97.7 F 02/25/17 22:44 Pulse Rate 86 02/25/17 22:44 Respiratory Rate 22 02/25/17 22:44 Blood Pressure 132/60 02/25/17 22:44 O2 Sat by Pulse Oximetry (%) 99 02/25/17 09:00 Constitutional: Yes: Calm Eyes: Yes: EOM Intact HENT: Yes: Normocephalic Neck: Yes: Trachea Midline Cardiovascular: Yes: Regular Rate and Rhythm Respiratory: Yes: On Nasal O2, Rhonchi, Tachypnea Gastrointestinal: Yes: Normal Bowel Sounds ...Rectal Exam: Yes: Deferred Genitourinary: Yes: WNL Breast(s): Yes: WNL Musculoskeletal: Yes: WNL Extremities: Yes: WNL Neurological: Yes: Alert, Oriented Labs: CBC, BMP 02/25/17 06:00 02/25/17 06:00 INR, PTT INR 1.10 (0.82-1.09) 02/20/17 10:10 Problem List - Problems (1) Type 2 diabetes mellitus with other diabetic arthropathy Code(s): E11.618 - TYPE 2 DIABETES MELLITUS WITH OTHER DIABETIC ARTHROPATHY (2) Type 2 diabetes mellitus with diabetic neuropathic arthropathy Code(s): E11.610 - TYPE 2 DIABETES MELLITUS W DIABETIC NEUROPATHIC ARTHROPATHY (3) Acute hypoxemic respiratory failure Code(s): J96.01 - ACUTE RESPIRATORY FAILURE WITH HYPOXIA (4) Elevated troponin Code(s): R74.8 - ABNORMAL LEVELS OF OTHER SERUM ENZYMES (5) Hyperkalemia Code(s): E87.5 - HYPERKALEMIA (6) Shortness of breath Code(s): R06.02 - SHORTNESS OF BREATH (7) Atypical chest pain Code(s): R07.89 - OTHER CHEST PAIN (8) Chest pain Code(s): R07.9 - CHEST PAIN, UNSPECIFIED Qualifiers: Chest pain type: intercostal pain Qualified Code(s): R07.82 - Intercostal pain Assessment/Plan Current Active Problems HORACE (acute kidney injury) (Acute) Acute hypoxemic respiratory failure (Acute) Anemia (Acute) Constipation (Acute) Elevated troponin (Acute) Hyperkalemia (Acute) Penicillin allergy (Acute) Pneumonia (Acute) Shortness of breath (Acute) Thyroid enlarged (Acute) Type 2 diabetes mellitus with diabetic neuropathic arthropathy (Acute) Type 2 diabetes mellitus with other diabetic arthropathy (Acute) Abnormal Lab Results 02/25/17 02/25/17 06:00 06:00 WBC 10.1 H Hgb 9.9 L Hct 30.6 L Monocytes % (Manual) 3 L Chloride 96 L Carbon Dioxide 38 H Anion Gap 4 L BUN 37 H Creatinine 1.1 H Random Glucose 191 H D Calcium 8.3 L AST 11 L D Albumin 2.5 L Laboratory Results - last 24 hr 02/24/17 02/25/17 02/25/17 08:00 06:00 06:00 WBC 10.1 H RBC 3.63 Hgb 9.9 L Hct 30.6 L MCV 84.4 MCH 27.2 MCHC 32.2 RDW 15.4 Plt Count 263 MPV 10.2 Total Counted 100 Neutrophils % No Result Required. Neutrophils % (Manual) 79.0 Lymphocytes % No Result Required. Lymphocytes % (Manual) 15.0 D Monocytes % (Manual) 3 L Myelocytes % (Man) 2 D Metamyelocytes 1 Platelet Estimate Adequate Sodium 138 Potassium 4.8 Chloride 96 L Carbon Dioxide 38 H Anion Gap 4 L BUN 37 H Creatinine 1.1 H Creat Clearance w eGFR 49.54 POC Glucometer Random Glucose 191 H D Calcium 8.3 L Iron 58 TIBC 252 Iron Saturation 23 Total Bilirubin 0.6 D AST 11 L D ALT 37 D Alkaline Phosphatase 55 Total Protein 6.6 Albumin 2.5 L 02/25/17 02/25/17 02/25/17 06:35 11:28 17:26 WBC RBC Hgb Hct MCV MCH MCHC RDW Plt Count MPV Total Counted Neutrophils % Neutrophils % (Manual) Lymphocytes % Lymphocytes % (Manual) Monocytes % (Manual) Myelocytes % (Man) Metamyelocytes Platelet Estimate Sodium Potassium Chloride Carbon Dioxide Anion Gap BUN Creatinine Creat Clearance w eGFR POC Glucometer 195 174 274 Random Glucose Calcium Iron TIBC Iron Saturation Total Bilirubin AST ALT Alkaline Phosphatase Total Protein Albumin 02/25/17 22:26 WBC RBC Hgb Hct MCV MCH MCHC RDW Plt Count MPV Total Counted Neutrophils % Neutrophils % (Manual) Lymphocytes % Lymphocytes % (Manual) Monocytes % (Manual) Myelocytes % (Man) Metamyelocytes Platelet Estimate Sodium Potassium Chloride Carbon Dioxide Anion Gap BUN Creatinine Creat Clearance w eGFR POC Glucometer 215 Random Glucose Calcium Iron TIBC Iron Saturation Total Bilirubin AST ALT Alkaline Phosphatase Total Protein Albumin plan: bgm qid novolog insulin doses continue novolog 70/30
[2017-02-26] MEDS: methylPREDNISolone NA SUCC 40 MG/1 ML VIAL IVPUSH SCH ×4 (02:34→21:35)
[2017-02-26] MEDS: ALBUTEROL SO4 2.5/IPRATROPIUM 0.5 INH SOL 3 ML VIAL.NEB. NEB SCH ×6 (02:40→21:52)
[2017-02-26] MEDS: INSULIN SLIDING SCALE (NOVOLOG) 1 VIAL SQ SCH ×4 (06:46→21:34)
[2017-02-26] MEDS: INSULIN DETEMIR 100 UNITS/ML MDV SQ SCH ×2 (06:48→21:33)
[2017-02-26] MEDS: INSULIN (NOVOLOG MIX 70/30) 100 UNITS/ML MDV SQ SCH ×2 (06:49→16:33)
[2017-02-26 08:07] LABS: HEMATOCRIT 31.2 % (34.0-46.6)
[2017-02-26] MEDS: FUROSEMIDE 40 MG TABLET (FP) PO SCH (09:43)
[2017-02-26] MEDS: HEPARIN NA (PORCINE) 5,000 UNITS/ML 1ML VIAL SQ SCH ×2 (09:43→21:33)
[2017-02-26] MEDS: PANTOPRAZOLE 40 MG TABLET (FP) PO SCH (09:43)
[2017-02-26] MEDS: LEVOFLOXACIN 500 MG IVPB 500 MG/100 ML BAG IVPB SCH (09:43)
[2017-02-26] MEDS: guaiFENesin 200 MG/10 ML 10 ML UNIT-DOSE CUPS PO PRN (09:44)
[2017-02-26] MEDS: POLYETHYLENE GLYCOL 3350 119 GM BTL PO SCH ×2 (09:46→21:26)
--- NOTE | 2017-02-26 10:56 | PN ---
Progress Note, Physician Chief Complaint: AWAKE ALERT STILL COUGHING AND SOB - Current Medication List Current Medications: Active Medications Acetaminophen (Tylenol -) 650 mg PO Q4H PRN PRN Reason: FEVER OR PAIN Albuterol/Ipratropium (Duoneb -) 1 amp NEB Q4H [facility] Last Admin: 02/26/17 07:20 Dose: 1 amp Furosemide (Lasix -) 40 mg PO DAILY [facility] Last Admin: 02/26/17 09:43 Dose: 40 mg Guaifenesin (Robitussin -) 10 ml PO Q4H PRN PRN Reason: COUGH Last Admin: 02/26/17 09:44 Dose: 10 ml Heparin Sodium (Porcine) (Heparin -) 5,000 unit SQ BID [facility] Last Admin: 02/26/17 09:43 Dose: 5,000 unit Levofloxacin (Levaquin 500 Mg Premixed Ivpb -) 500 mg in 100 mls @ 100 mls/hr IVPB DAILY [facility] Last Admin: 02/26/17 09:43 Dose: 100 mls/hr Insulin Aspart (Novolog Mix 70/30 Vial) 25 units SQ BIDAC [facility] Last Admin: 02/26/17 06:49 Dose: 25 units Insulin Aspart (Novolog Vial Sliding Scale -) 1 vial SQ ACHS [facility]LEE PRN Reason: Protocol Last Admin: 02/26/17 06:46 Dose: 4 units Insulin Detemir (Levemir Vial) 50 units SQ BID@0700,2200 [facility] Last Admin: 02/26/17 06:48 Dose: 50 units Methylprednisolone Sodium Succinate (Solu-Medrol -) 40 mg IVPUSH Q8H-IV [facility] Last Admin: 02/26/17 09:43 Dose: 40 mg Pantoprazole Sodium (Protonix -) 40 mg PO DAILY [facility] Last Admin: 02/26/17 09:43 Dose: 40 mg Polyethylene Glycol (Miralax (For Daily Use) -) 17 gm PO BID [facility] Last Admin: 02/26/17 09:46 Dose: Not Given - Objective Vital Signs: Vital Signs Temperature 98.4 F 02/26/17 06:00 Pulse Rate 72 02/26/17 06:00 Respiratory Rate 22 02/26/17 06:00 Blood Pressure 155/73 02/26/17 06:00 O2 Sat by Pulse Oximetry (%) 98 02/25/17 21:00 Constitutional: Yes: Mild Distress Eyes: Yes: WNL HENT: Yes: WNL Neck: Yes: WNL Cardiovascular: Yes: WNL Respiratory: Yes: Cough, On Nasal O2, Poor Air Entry, Wheezes Gastrointestinal: Yes: WNL Genitourinary: Yes: WNL Musculoskeletal: Yes: WNL Extremities: Yes: WNL Edema: Yes Peripheral Pulses WNL: Yes Integumentary: Yes: WNL Wound/Incision: Yes: Clean/Dry Neurological: Yes: WNL ...Motor Strength: WNL Psychiatric: Yes: WNL Labs: CBC, BMP 02/25/17 06:00 02/25/17 06:00 INR, PTT INR 1.10 (0.82-1.09) 02/20/17 10:10 Problem List - Problems (1) HORACE (acute kidney injury) Code(s): N17.9 - ACUTE KIDNEY FAILURE, UNSPECIFIED (2) Acute hypoxemic respiratory failure Code(s): J96.01 - ACUTE RESPIRATORY FAILURE WITH HYPOXIA (3) Anemia Code(s): D64.9 - ANEMIA, UNSPECIFIED Qualifiers: Chronic kidney disease stage: unspecified stage (4) Constipation Code(s): K59.00 - CONSTIPATION, UNSPECIFIED (5) Hyperkalemia Code(s): E87.5 - HYPERKALEMIA (6) Pneumonia Code(s): J18.9 - PNEUMONIA, UNSPECIFIED ORGANISM Qualifiers: Pneumonia type: due to unspecified organism Laterality: bilateral Lung location: unspecified part of lung Qualified Code(s): J18.9 - Pneumonia, unspecified organism (7) Diabetes mellitus, insulin dependent (IDDM), uncontrolled Code(s): E10.65 - TYPE 1 DIABETES MELLITUS WITH HYPERGLYCEMIA Qualifiers: Chronic kidney disease stage: unspecified stage (8) Hypertension Code(s): I10 - ESSENTIAL (PRIMARY) HYPERTENSION Assessment/Plan STEROIDS IV MONITOR BGM IV ABX NEBS OOB TO CHAIR SPIROMETRY COUGH SYRUP SUGAR FREE LIFESTYLE CHANGES DISCUSSED
[2017-02-26] MEDS ORDERED: guaiFENesin/D-M SUGAR-FREE/ACLHOL-FREE 118 ML BOTTLE PO PRN (11:00)
--- NOTE | 2017-02-26 16:47 | PN ---
Progress Note, Physician History of Present Illness: pulmonary alert,laying in bed nad,-sob,congestion - Current Medication List Current Medications: Active Medications Acetaminophen (Tylenol -) 650 mg PO Q4H PRN PRN Reason: FEVER OR PAIN Albuterol/Ipratropium (Duoneb -) 1 amp NEB Q4H [facility] Last Admin: 02/26/17 15:04 Dose: 1 amp Furosemide (Lasix -) 40 mg PO DAILY [facility] Last Admin: 02/26/17 09:43 Dose: 40 mg Guaifenesin (Diabetic Tussin Dm -) 10 ml PO Q4H PRN PRN Reason: COUGH Heparin Sodium (Porcine) (Heparin -) 5,000 unit SQ BID [facility] Last Admin: 02/26/17 09:43 Dose: 5,000 unit Levofloxacin (Levaquin 500 Mg Premixed Ivpb -) 500 mg in 100 mls @ 100 mls/hr IVPB DAILY [facility] Last Admin: 02/26/17 09:43 Dose: 100 mls/hr Insulin Aspart (Novolog Mix 70/30 Vial) 25 units SQ BIDAC [facility] Last Admin: 02/26/17 16:33 Dose: 25 units Insulin Aspart (Novolog Vial Sliding Scale -) 1 vial SQ ACHS [facility]LEE PRN Reason: Protocol Last Admin: 02/26/17 16:32 Dose: 9 units Insulin Detemir (Levemir Vial) 50 units SQ BID@0700,2200 [facility] Last Admin: 02/26/17 06:48 Dose: 50 units Methylprednisolone Sodium Succinate (Solu-Medrol -) 40 mg IVPUSH Q8H-IV [facility] Last Admin: 02/26/17 09:43 Dose: 40 mg Pantoprazole Sodium (Protonix -) 40 mg PO DAILY [facility] Last Admin: 02/26/17 09:43 Dose: 40 mg Polyethylene Glycol (Miralax (For Daily Use) -) 17 gm PO BID [facility] Last Admin: 02/26/17 09:46 Dose: Not Given - Objective Vital Signs: Vital Signs Temperature 97.8 F 02/26/17 14:24 Pulse Rate 89 02/26/17 14:24 Respiratory Rate 20 02/26/17 14:24 Blood Pressure 140/65 02/26/17 14:24 O2 Sat by Pulse Oximetry (%) 99 02/26/17 09:00 Constitutional: Yes: Calm, Obese Eyes: Yes: WNL HENT: Yes: WNL Neck: Yes: WNL Cardiovascular: Yes: Regular Rate and Rhythm, S1, S2 Respiratory: Yes: Diminished Gastrointestinal: Yes: Normal Bowel Sounds, Soft Extremities: Yes: WNL Edema: No Labs: CBC, BMP - ....Imaging Chest X-ray: Report Reviewed, Image Reviewed Problem List - Problems (1) Acute hypoxemic respiratory failure Code(s): J96.01 - ACUTE RESPIRATORY FAILURE WITH HYPOXIA (2) Pneumonia Code(s): J18.9 - PNEUMONIA, UNSPECIFIED ORGANISM Qualifiers: Pneumonia type: due to unspecified organism Laterality: bilateral Lung location: unspecified part of lung Qualified Code(s): J18.9 - Pneumonia, unspecified organism (3) Shortness of breath Code(s): R06.02 - SHORTNESS OF BREATH (4) Chest pain Code(s): R07.9 - CHEST PAIN, UNSPECIFIED Qualifiers: Chest pain type: intercostal pain Qualified Code(s): R07.82 - Intercostal pain (5) Cough Code(s): R05 - COUGH (6) Diabetes mellitus, insulin dependent (IDDM), uncontrolled Code(s): E10.65 - TYPE 1 DIABETES MELLITUS WITH HYPERGLYCEMIA Qualifiers: Chronic kidney disease stage: unspecified stage (7) Dizziness Code(s): R42 - DIZZINESS AND GIDDINESS (8) HLD (hyperlipidemia) Code(s): E78.5 - HYPERLIPIDEMIA, UNSPECIFIED (9) Hypertension Code(s): I10 - ESSENTIAL (PRIMARY) HYPERTENSION Assessment/Plan IMP ACUTE HYPOXEMIC RESPIRATORY FAILURE IMPROVING PNEUMONIA ASTHMA HORACE ELEVATED TROPONIN LEVEL ? CHF DM PILMONARY HTN OSAS PLAN INHALED BRONCHODILATORS O2 ANTIBIOTICS STEROID TAPER LASIX MONITOR LYTES,RENAL FUNCTION FORMAL SLEEP STUDIES OUTPATIENT DR MANN Problem List - Problems (1) Acute hypoxemic respiratory failure Code(s): J96.01 - ACUTE RESPIRATORY FAILURE WITH HYPOXIA (2) Pneumonia Code(s): J18.9 - PNEUMONIA, UNSPECIFIED ORGANISM Qualifiers: Pneumonia type: due to unspecified organism Laterality: bilateral Lung location: unspecified part of lung Qualified Code(s): J18.9 - Pneumonia, unspecified organism (3) Shortness of breath Code(s): R06.02 - SHORTNESS OF BREATH (4) Chest pain Code(s): R07.9 - CHEST PAIN, UNSPECIFIED Qualifiers: Chest pain type: intercostal pain Qualified Code(s): R07.82 - Intercostal pain (5) Cough Code(s): R05 - COUGH (6) Diabetes mellitus, insulin dependent (IDDM), uncontrolled Code(s): E10.65 - TYPE 1 DIABETES MELLITUS WITH HYPERGLYCEMIA (7) Dizziness Code(s): R42 - DIZZINESS AND GIDDINESS (8) HLD (hyperlipidemia) Code(s): E78.5 - HYPERLIPIDEMIA, UNSPECIFIED (9) Hypertension Code(s): I10 - ESSENTIAL (PRIMARY) HYPERTENSION
[2017-02-26] MEDS ORDERED: INSULIN (NOVOLOG MIX 70/30) 100 UNITS/ML MDV SQ ONE (18:24)
[2017-02-26] MEDS ORDERED: INSULIN (NOVOLOG) ASPART 100 UNITS/ML 10ML VIAL ONE (18:24)
[2017-02-27] MEDS: ALBUTEROL SO4 2.5/IPRATROPIUM 0.5 INH SOL 3 ML VIAL.NEB. NEB SCH ×3 (02:34→10:38)
[2017-02-27] MEDS: INSULIN DETEMIR 100 UNITS/ML MDV SQ SCH ×2 (06:54→23:18)
[2017-02-27] MEDS: INSULIN SLIDING SCALE (NOVOLOG) 1 VIAL SQ SCH ×4 (06:54→23:18)
[2017-02-27] MEDS: INSULIN (NOVOLOG MIX 70/30) 100 UNITS/ML MDV SQ SCH ×2 (06:54→17:01)
--- NOTE | 2017-02-27 10:31 | PN ---
Progress Note, Physician Chief Complaint: SOB, PNE, anemia History of Present Illness: NAD, self ambulatory oob to chair -intermittent SOB -neb tx -IV steroids and IV abx - Current Medication List Current Medications: Active Medications Acetaminophen (Tylenol -) 650 mg PO Q4H PRN PRN Reason: FEVER OR PAIN Albuterol/Ipratropium (Duoneb -) 1 amp NEB Q4H [facility] Last Admin: 02/27/17 06:34 Dose: 1 amp Furosemide (Lasix -) 40 mg PO DAILY [facility] Last Admin: 02/26/17 09:43 Dose: 40 mg Guaifenesin (Diabetic Tussin Dm -) 10 ml PO Q4H PRN PRN Reason: COUGH Heparin Sodium (Porcine) (Heparin -) 5,000 unit SQ BID [facility] Last Admin: 02/26/17 21:33 Dose: 5,000 unit Levofloxacin (Levaquin 500 Mg Premixed Ivpb -) 500 mg in 100 mls @ 100 mls/hr IVPB DAILY [facility] Last Admin: 02/26/17 09:43 Dose: 100 mls/hr Insulin Aspart (Novolog Mix 70/30 Vial) 25 units SQ BIDAC [facility] Last Admin: 02/27/17 06:54 Dose: 25 units Insulin Aspart (Novolog Vial Sliding Scale -) 1 vial SQ ACHS [facility] PRN Reason: Protocol Last Admin: 02/27/17 06:54 Dose: 8 units Insulin Detemir (Levemir Vial) 50 units SQ BID@0700,2200 [facility] Last Admin: 02/27/17 06:54 Dose: 50 units Methylprednisolone Sodium Succinate (Solu-Medrol -) 40 mg IVPUSH BID [facility] Last Admin: 02/26/17 21:35 Dose: 40 mg Pantoprazole Sodium (Protonix -) 40 mg PO DAILY [facility] Last Admin: 02/26/17 09:43 Dose: 40 mg Polyethylene Glycol (Miralax (For Daily Use) -) 17 gm PO BID [facility] Last Admin: 02/26/17 21:26 Dose: Not Given - Objective Vital Signs: Vital Signs Temperature 98.3 F 02/27/17 05:29 Pulse Rate 82 02/27/17 05:29 Respiratory Rate 20 02/27/17 05:29 Blood Pressure 125/54 02/27/17 05:29 O2 Sat by Pulse Oximetry (%) 98 02/26/17 21:00 Constitutional: Yes: Well Nourished, No Distress, Calm Cardiovascular: Yes: Regular Rate and Rhythm Respiratory: Yes: Regular, Wheezes (Inspiratory diffuse) Gastrointestinal: Yes: Normal Bowel Sounds, Abdomen, Obese Musculoskeletal: Yes: WNL Extremities: Yes: WNL Edema: No Peripheral Pulses WNL: Yes Neurological: Yes: Alert, Oriented Psychiatric: Yes: Alert, Oriented Labs: CBC, BMP 02/25/17 06:00 02/25/17 06:00 INR, PTT INR 1.10 (0.82-1.09) 02/20/17 10:10 Problem List - Problems (1) HORACE (acute kidney injury) Assessment/Plan: -repeat labs today -Follow Cr given that she is on Furosemide -nephrology on board -renal U/S negative -Follow up outpatient with nephrology for renal biopsy Code(s): N17.9 - ACUTE KIDNEY FAILURE, UNSPECIFIED (2) Anemia Assessment/Plan: -repeat labs today -hematology on board -stool OB pending Code(s): D64.9 - ANEMIA, UNSPECIFIED Qualifiers: Chronic kidney disease stage: unspecified stage (3) Pneumonia Assessment/Plan: -repeat CXR improved Code(s): J18.9 - PNEUMONIA, UNSPECIFIED ORGANISM Qualifiers: Pneumonia type: due to unspecified organism Laterality: bilateral Lung location: unspecified part of lung Qualified Code(s): J18.9 - Pneumonia, unspecified organism (4) Diabetes mellitus, insulin dependent (IDDM), uncontrolled Assessment/Plan: -A1c at 10.7 -endocrinology on board -on long and short acting insulin -Diabetic diet- encouraged outpatient compliance -RD consult Code(s): E10.65 - TYPE 1 DIABETES MELLITUS WITH HYPERGLYCEMIA Qualifiers: Chronic kidney disease stage: unspecified stage (5) Shortness of breath Assessment/Plan: -nasal o2 -neb tx: added mucomyst, already on Robitussin Code(s): R06.02 - SHORTNESS OF BREATH Assessment/Plan see problem list
[2017-02-27] MEDS: LEVOFLOXACIN 500 MG IVPB 500 MG/100 ML BAG IVPB SCH (11:00)
[2017-02-27] MEDS: FUROSEMIDE 40 MG TABLET (FP) PO SCH (11:00)
[2017-02-27] MEDS: HEPARIN NA (PORCINE) 5,000 UNITS/ML 1ML VIAL SQ SCH ×2 (11:00→23:18)
[2017-02-27] MEDS: PANTOPRAZOLE 40 MG TABLET (FP) PO SCH (11:00)
[2017-02-27] MEDS: methylPREDNISolone NA SUCC 40 MG/1 ML VIAL IVPUSH SCH ×2 (11:00→23:18)
[2017-02-27] MEDS ORDERED: BISACODYL 5 MG TABLET.DR (FP) PO PRN (11:12)
[2017-02-27] MEDS ORDERED: ALBUTEROL SO4 0.083% IH SOL 2.5 MG/3 ML VIAL.NEB. NEB ONE (11:15)
[2017-02-27 11:20] LABS: MCH 26.8 pg (25.7-33.7); MCHC 31.5 g/dl (32.0-36.0); MEAN CELL VOLUME 84.9 fl (80-96); PLATELET COUNT 297 K/MM3 (134-434); RDW 15.7 % (11.6-15.6); WHITE BLOOD COUNT 15.2 K/mm3 (4.0-10.0)
[2017-02-27 11:34] LABS: ALBUMIN 2.6 g/dl (3.4-5.0); ANION GAP 6 (8-16); CALCIUM 8.4 mg/dL (8.5-10.1); CO2 36 mmol/L (21-32); GLUCOSE,RANDOM 220 mg/dL (74-106)
[2017-02-27] MEDS: POLYETHYLENE GLYCOL 3350 119 GM BTL PO SCH (11:36)
[2017-02-27 11:38] LABS: ALK PHOS 54 U/L (45-117); BILIRUBIN,TOTAL 0.4 mg/dL (0.2-1.0); CREATININE 1.2 mg/dL (0.55-1.02); SGOT/AST 15 U/L (15-37); SGPT/ALT 35 U/L (12-78); TOT PROT 6.3 g/dl (6.4-8.2)
[2017-02-27] MEDS ORDERED: INSULIN (NOVOLOG) ASPART 100 UNITS/ML 10ML VIAL ONE ×3 (11:59→23:11)
--- NOTE | 2017-02-27 12:00 | PN ---
Progress Note (short form) - Note Progress Note: Breathing feels a little better today. Still with VASQUEZ. Getting prepared for PT. No CP. Some dry cough. Intake & Output 02/24/17 02/25/17 02/26/17 02/27/17 23:59 23:59 23:59 23:59 Intake Total 440 300 750 240 Balance 440 300 750 240 Last Vital Signs Temp Pulse Resp BP Pulse Ox 98.3 F 90 20 125/54 96 02/27/17 05:29 02/27/17 11:39 02/27/17 05:29 02/27/17 05:29 02/27/17 11:39 Active Medications Acetaminophen (Tylenol -) 650 mg PO Q4H PRN PRN Reason: FEVER OR PAIN Acetylcysteine (Mucomyst 20 Oral / Inh Use Only*) 200 mg NEB BID [facility] Albuterol Sulfate (Ventolin 0.083% Nebulizer Soln -) 1 amp NEB Q4H PRN PRN Reason: SHORT OF BREATH/WHEEZING Bisacodyl (Dulcolax -) 5 mg PO DAILY PRN PRN Reason: CONSTIPATION Furosemide (Lasix -) 40 mg PO DAILY [facility] Last Admin: 02/27/17 11:00 Dose: 40 mg Guaifenesin (Diabetic Tussin Dm -) 10 ml PO Q4H PRN PRN Reason: COUGH Heparin Sodium (Porcine) (Heparin -) 5,000 unit SQ BID [facility] Last Admin: 02/27/17 11:00 Dose: 5,000 unit Levofloxacin (Levaquin 500 Mg Premixed Ivpb -) 500 mg in 100 mls @ 100 mls/hr IVPB DAILY [facility] Last Admin: 02/27/17 11:00 Dose: 100 mls/hr Insulin Aspart (Novolog Mix 70/30 Vial) 25 units SQ BIDAC [facility] Last Admin: 02/27/17 06:54 Dose: 25 units Insulin Aspart (Novolog Vial Sliding Scale -) 1 vial SQ ACHS [facility] PRN Reason: Protocol Last Admin: 02/27/17 06:54 Dose: 8 units Insulin Detemir (Levemir Vial) 50 units SQ BID@0700,2200 [facility] Last Admin: 02/27/17 06:54 Dose: 50 units Methylprednisolone Sodium Succinate (Solu-Medrol -) 40 mg IVPUSH BID [facility] Last Admin: 02/27/17 11:00 Dose: 40 mg Pantoprazole Sodium (Protonix -) 40 mg PO DAILY [facility] Last Admin: 02/27/17 11:00 Dose: 40 mg Constitutional: Yes: Obese, NAD Eyes: Yes: WNL HENT: Yes: WNL Neck: Yes: WNL Cardiovascular: Yes: Regular Rate and Rhythm, S1, S2 Respiratory: Yes: Diminished at the bases Gastrointestinal: Yes: Normal Bowel Sounds, Soft Extremities: Yes: WNL Edema: Yes Labs: Laboratory Results - last 24 hr 02/26/17 02/26/17 02/26/17 11:17 16:31 21:27 WBC RBC Hgb Hct MCV MCH MCHC RDW Plt Count MPV Neutrophils % Lymphocytes % Sodium Potassium Chloride Carbon Dioxide Anion Gap BUN Creatinine Creat Clearance w eGFR POC Glucometer 168 251 196 Random Glucose Calcium Total Bilirubin AST ALT Alkaline Phosphatase Total Protein Albumin 02/27/17 02/27/17 02/27/17 06:20 10:45 10:45 WBC 15.2 H D RBC 3.86 Hgb 10.3 L Hct 32.8 MCV 84.9 MCH 26.8 MCHC 31.5 L RDW 15.7 H Plt Count 297 MPV 10.0 Neutrophils % No Result Required. Lymphocytes % No Result Required. Sodium 139 Potassium 4.6 Chloride 97 L Carbon Dioxide 36 H Anion Gap 6 L BUN 47 H D Creatinine 1.2 H Creat Clearance w eGFR 44.81 POC Glucometer 214 Random Glucose 220 H Calcium 8.4 L Total Bilirubin 0.4 D AST 15 D ALT 35 Alkaline Phosphatase 54 Total Protein 6.3 L Albumin 2.6 L Problem List - Problems (1) Acute hypoxemic respiratory failure Code(s): J96.01 - ACUTE RESPIRATORY FAILURE WITH HYPOXIA (2) Pneumonia Code(s): J18.9 - PNEUMONIA, UNSPECIFIED ORGANISM Qualifiers: Pneumonia type: due to unspecified organism Laterality: bilateral Lung location: unspecified part of lung Qualified Code(s): J18.9 - Pneumonia, unspecified organism (3) Shortness of breath Code(s): R06.02 - SHORTNESS OF BREATH (4) Chest pain Code(s): R07.9 - CHEST PAIN, UNSPECIFIED Qualifiers: Chest pain type: intercostal pain Qualified Code(s): R07.82 - Intercostal pain (5) Cough Code(s): R05 - COUGH (6) Diabetes mellitus, insulin dependent (IDDM), uncontrolled Code(s): E10.65 - TYPE 1 DIABETES MELLITUS WITH HYPERGLYCEMIA Qualifiers: Chronic kidney disease stage: unspecified stage (7) Dizziness Code(s): R42 - DIZZINESS AND GIDDINESS (8) HLD (hyperlipidemia) Code(s): E78.5 - HYPERLIPIDEMIA, UNSPECIFIED (9) Hypertension Code(s): I10 - ESSENTIAL (PRIMARY) HYPERTENSION Assessment/Plan IMP ACUTE HYPOXEMIC RESPIRATORY FAILURE IMPROVING PNEUMONIA ASTHMA HORACE ELEVATED TROPONIN LEVEL ? CHF DM PILMONARY HTN OSAS PLAN INHALED BRONCHODILATORS O2 ANTIBIOTICS STEROID TAPER LASIX MONITOR LYTES,RENAL FUNCTION FORMAL SLEEP STUDIES OUTPATIENT DR MANN Problem List - Problems (1) Acute hypoxemic respiratory failure Code(s): J96.01 - ACUTE RESPIRATORY FAILURE WITH HYPOXIA (2) Pneumonia Code(s): J18.9 - PNEUMONIA, UNSPECIFIED ORGANISM
[2017-02-27] MEDS: FUROSEMIDE 40 MG/4 ML INJECTABLE VIAL IVPUSH SCH ×2 (12:29→14:30)
--- NOTE | 2017-02-27 13:24 | PN ---
Progress Note, Physician History of Present Illness: Pt seen and examined at bedside. She still complains of shortness of breath. - Current Medication List Current Medications: Active Medications Acetaminophen (Tylenol -) 650 mg PO Q4H PRN PRN Reason: FEVER OR PAIN Acetylcysteine (Mucomyst 20 Oral / Inh Use Only*) 200 mg NEB BID [facility] Albuterol Sulfate (Ventolin 0.083% Nebulizer Soln -) 1 amp NEB Q4H PRN PRN Reason: SHORT OF BREATH/WHEEZING Bisacodyl (Dulcolax -) 5 mg PO DAILY PRN PRN Reason: CONSTIPATION Furosemide (Lasix Injection -) 40 mg IVPUSH BID@0600,1400 [facility] Last Admin: 02/27/17 12:29 Dose: 40 mg Guaifenesin (Diabetic Tussin Dm -) 10 ml PO Q4H PRN PRN Reason: COUGH Heparin Sodium (Porcine) (Heparin -) 5,000 unit SQ BID [facility] Last Admin: 02/27/17 11:00 Dose: 5,000 unit Levofloxacin (Levaquin 500 Mg Premixed Ivpb -) 500 mg in 100 mls @ 100 mls/hr IVPB DAILY [facility] Last Admin: 02/27/17 11:00 Dose: 100 mls/hr Insulin Aspart (Novolog Mix 70/30 Vial) 25 units SQ BIDAC [facility] Last Admin: 02/27/17 06:54 Dose: 25 units Insulin Aspart (Novolog Vial Sliding Scale -) 1 vial SQ ACHS [facility] PRN Reason: Protocol Last Admin: 02/27/17 12:15 Dose: 5 units Insulin Detemir (Levemir Vial) 50 units SQ BID@0700,2200 [facility] Last Admin: 02/27/17 06:54 Dose: 50 units Methylprednisolone Sodium Succinate (Solu-Medrol -) 40 mg IVPUSH BID [facility] Last Admin: 02/27/17 11:00 Dose: 40 mg Pantoprazole Sodium (Protonix -) 40 mg PO DAILY [facility] Last Admin: 02/27/17 11:00 Dose: 40 mg - Objective Vital Signs: Vital Signs Temperature 98.3 F 02/27/17 05:29 Pulse Rate 90 02/27/17 11:39 Respiratory Rate 20 02/27/17 05:29 Blood Pressure 125/54 02/27/17 05:29 O2 Sat by Pulse Oximetry (%) 96 02/27/17 11:39 Constitutional: Yes: Calm Eyes: Yes: Conjunctiva Clear Cardiovascular: Yes: S1, S2 Respiratory: Yes: On Nasal O2, Rhonchi Gastrointestinal: Yes: Soft, Abdomen, Obese Genitourinary: Yes: WNL Musculoskeletal: Yes: WNL Edema: Yes Edema: LLE: 1+, RLE: 1+ Neurological: Yes: Oriented Psychiatric: Yes: Oriented Labs: CBC, BMP 02/27/17 10:45 02/27/17 10:45 INR, PTT INR 1.10 (0.82-1.09) 02/20/17 10:10 Problem List - Problems (1) Hyperkalemia Code(s): E87.5 - HYPERKALEMIA (2) Acute hypoxemic respiratory failure Code(s): J96.01 - ACUTE RESPIRATORY FAILURE WITH HYPOXIA (3) Pneumonia Code(s): J18.9 - PNEUMONIA, UNSPECIFIED ORGANISM Qualifiers: Pneumonia type: due to unspecified organism Laterality: bilateral Lung location: unspecified part of lung Qualified Code(s): J18.9 - Pneumonia, unspecified organism (4) Shortness of breath Code(s): R06.02 - SHORTNESS OF BREATH (5) Diabetes mellitus, insulin dependent (IDDM), uncontrolled Code(s): E10.65 - TYPE 1 DIABETES MELLITUS WITH HYPERGLYCEMIA Qualifiers: Chronic kidney disease stage: unspecified stage Assessment/Plan Current Medications Generic Name Dose Route Start Last Admin Trade Name Freq PRN Reason Stop Dose Admin Acetaminophen 650 mg 02/20/17 14:18 Tylenol - PO Q4H PRN FEVER OR PAIN Acetylcysteine 200 mg 02/27/17 22:00 Mucomyst 20 Oral / Inh Use Only* NEB BID [facility] Albuterol Sulfate 1 amp 02/27/17 11:13 Ventolin 0.083% Nebulizer Soln - NEB Q4H PRN SHORT OF BREATH/WHEEZING Bisacodyl 5 mg 02/27/17 11:12 Dulcolax - PO DAILY PRN CONSTIPATION Furosemide 40 mg 02/27/17 12:15 02/27/17 12:29 Lasix Injection - IVPUSH 40 mg BID@0600,1400 [facility] Administration Guaifenesin 10 ml 02/26/17 11:00 Diabetic Tussin Dm - PO Q4H PRN COUGH Heparin Sodium (Porcine) 5,000 unit 02/20/17 22:00 02/27/17 11:00 Heparin - SQ 5,000 unit BID [facility] Administration Levofloxacin 500 mg in 100 mls @ 100 mls/hr 02/21/17 10:00 02/27/17 11:00 Levaquin 500 Mg Premixed Ivpb - IVPB 100 mls/hr DAILY [facility] Administration Insulin Aspart 25 units 02/22/17 07:00 02/27/17 06:54 Novolog Mix 70/30 Vial SQ 25 units BIDAC [facility] Administration Insulin Aspart 1 vial 02/23/17 22:00 02/27/17 12:15 Novolog Vial Sliding Scale - SQ 5 units ACHS [facility] Administration Protocol Insulin Detemir 50 units 02/23/17 07:15 02/27/17 06:54 Levemir Vial SQ 50 units BID@0700,2200 [facility] Administration Methylprednisolone Sodium Succinate 40 mg 02/26/17 17:01 02/27/17 11:00 Solu-Medrol - IVPUSH 40 mg BID [facility] Administration Pantoprazole Sodium 40 mg 02/24/17 10:00 02/27/17 11:00 Protonix - PO 40 mg DAILY [facility] Administration Laboratory Tests 02/21/17 02/22/17 02/22/17 18:00 05:05 05:05 Protein/Creatinin Ratio 4.91 Urine Total Protein MALLORY Screen Positive H MALLORY Homogeneous Pattern 1:80 c-ANCA Pending Proteinase 3 (PR3) Pending p-ANCA Pending Atypical p-ANCA Pending Myeloperoxidase Ab Pending Free Mead LC, Quant Free Mead/Lambda Ratio 02/24/17 02/25/17 08:00 12:40 Protein/Creatinin Ratio Urine Total Protein Pending MALLORY Screen MALLORY Homogeneous Pattern c-ANCA Proteinase 3 (PR3) p-ANCA Atypical p-ANCA Myeloperoxidase Ab Free Mead LC, Quant 47.1 H Free Mead/Lambda Ratio 1.84 H Impression 1. hyperkalemia 2. vascular congestion 3. DM 4. PNA 5. obesity 6. HTN 7. chest pain 8. proteinuria 9. CKD 10. hepatic steatosis Plan - will increase dose of lasix - discussed with pulmonary - kappa chains are elevated, consider heme eval - pt does have positive mallory, workup is in progress - will need kidney biopsy one more stable - renal ultrasound reviewed, neg hydro - will need daily labs - cont with PT - cont with oxygen - reviewed labs and meds - will follow Dr Sahu
[2017-02-27 14:00] LABS: METAMYELOCYTE 2 % (0-2); PLATELET ESTIMATE ADEQUATE; TOTAL CELLS COUNTED 100
--- NOTE | 2017-02-27 14:54 | PN ---
Progress Note, Physician History of Present Illness: awake, alert Supine in bed No c/o dyspnea + cough ; pt denies sputum production - Current Medication List Current Medications: Active Medications Acetaminophen (Tylenol -) 650 mg PO Q4H PRN PRN Reason: FEVER OR PAIN Acetylcysteine (Mucomyst 20 Oral / Inh Use Only*) 200 mg NEB BID [facility] Albuterol Sulfate (Ventolin 0.083% Nebulizer Soln -) 1 amp NEB Q4H PRN PRN Reason: SHORT OF BREATH/WHEEZING Bisacodyl (Dulcolax -) 5 mg PO DAILY PRN PRN Reason: CONSTIPATION Furosemide (Lasix Injection -) 40 mg IVPUSH BID@0600,1400 [facility] Last Admin: 02/27/17 12:29 Dose: 40 mg Guaifenesin (Diabetic Tussin Dm -) 10 ml PO Q4H PRN PRN Reason: COUGH Heparin Sodium (Porcine) (Heparin -) 5,000 unit SQ BID [facility] Last Admin: 02/27/17 11:00 Dose: 5,000 unit Levofloxacin (Levaquin 500 Mg Premixed Ivpb -) 500 mg in 100 mls @ 100 mls/hr IVPB DAILY [facility] Last Admin: 02/27/17 11:00 Dose: 100 mls/hr Insulin Aspart (Novolog Mix 70/30 Vial) 25 units SQ BIDAC [facility] Last Admin: 02/27/17 06:54 Dose: 25 units Insulin Aspart (Novolog Vial Sliding Scale -) 1 vial SQ ACHS [facility] PRN Reason: Protocol Last Admin: 02/27/17 12:15 Dose: 5 units Insulin Detemir (Levemir Vial) 50 units SQ BID@0700,2200 [facility] Last Admin: 02/27/17 06:54 Dose: 50 units Methylprednisolone Sodium Succinate (Solu-Medrol -) 40 mg IVPUSH BID [facility] Last Admin: 02/27/17 11:00 Dose: 40 mg Pantoprazole Sodium (Protonix -) 40 mg PO DAILY [facility] Last Admin: 02/27/17 11:00 Dose: 40 mg - Objective Vital Signs: Vital Signs Temperature 98.0 F 02/27/17 14:31 Pulse Rate 103 H 02/27/17 14:31 Respiratory Rate 18 02/27/17 14:31 Blood Pressure 143/66 02/27/17 14:31 O2 Sat by Pulse Oximetry (%) 96 02/27/17 11:39 Constitutional: Yes: No Distress Eyes: Yes: Conjunctiva Clear Cardiovascular: Yes: Regular Rate and Rhythm, S1, S2 Respiratory: Yes: Rhonchi, Other (+rales, bases bilaterally) Gastrointestinal: Yes: Normal Bowel Sounds, Soft, Abdomen, Obese. No: Tenderness Labs: CBC, BMP 02/27/17 10:45 02/27/17 10:45 INR, PTT INR 1.10 (0.82-1.09) 02/20/17 10:10 Assessment/Plan Bilateral pneumonia ? CHF Respiratory insufficiency Leukocytosis- ? steroid-induced PCN allergy Continue levaquin
[2017-02-27] MEDS: ALBUTEROL SO4 0.083% IH SOL 2.5 MG/3 ML VIAL.NEB. NEB PRN (21:45)
[2017-02-27] MEDS: ACETYLCYSTEINE 20% 200MG/ML 30 ML VIAL *FOR ORAL / INH USE ONLY NEB SCH (21:45)
--- NOTE | 2017-02-27 23:00 | PN ---
Progress Note (short form) - Note Progress Note: coughing improved,despite high sugars Current Active Problems HORACE (acute kidney injury) (Acute) Acute hypoxemic respiratory failure (Acute) Anemia (Acute) Constipation (Acute) Elevated troponin (Acute) Hyperkalemia (Acute) Penicillin allergy (Acute) Pneumonia (Acute) Shortness of breath (Acute) Thyroid enlarged (Acute) Type 2 diabetes mellitus with diabetic neuropathic arthropathy (Acute) Type 2 diabetes mellitus with other diabetic arthropathy (Acute) Abnormal Lab Results 02/27/17 02/27/17 10:45 10:45 WBC 15.2 H D Hgb 10.3 L MCHC 31.5 L RDW 15.7 H Monocytes % (Manual) 3 L Chloride 97 L Carbon Dioxide 36 H Anion Gap 6 L BUN 47 H D Creatinine 1.2 H Random Glucose 220 H Calcium 8.4 L Total Protein 6.3 L Albumin 2.6 L Laboratory Results - last 24 hr 02/27/17 02/27/17 02/27/17 06:20 10:45 10:45 WBC 15.2 H D RBC 3.86 Hgb 10.3 L Hct 32.8 MCV 84.9 MCH 26.8 MCHC 31.5 L RDW 15.7 H Plt Count 297 MPV 10.0 Total Counted 100 Neutrophils % No Result Required. Neutrophils % (Manual) 71.0 Lymphocytes % No Result Required. Lymphocytes % (Manual) 24.0 D Monocytes % (Manual) 3 L Metamyelocytes 2 D Platelet Estimate Adequate Sodium 139 Potassium 4.6 Chloride 97 L Carbon Dioxide 36 H Anion Gap 6 L BUN 47 H D Creatinine 1.2 H Creat Clearance w eGFR 44.81 POC Glucometer 214 Random Glucose 220 H Calcium 8.4 L Total Bilirubin 0.4 D AST 15 D ALT 35 Alkaline Phosphatase 54 Total Protein 6.3 L Albumin 2.6 L 02/27/17 11:34 WBC RBC Hgb Hct MCV MCH MCHC RDW Plt Count MPV Total Counted Neutrophils % Neutrophils % (Manual) Lymphocytes % Lymphocytes % (Manual) Monocytes % (Manual) Metamyelocytes Platelet Estimate Sodium Potassium Chloride Carbon Dioxide Anion Gap BUN Creatinine Creat Clearance w eGFR POC Glucometer 176 Random Glucose Calcium Total Bilirubin AST ALT Alkaline Phosphatase Total Protein Albumin Laboratory Tests 02/25/17 02/25/17 02/25/17 06:00 06:35 11:28 Sodium 138 Potassium 4.8 Chloride 96 L Carbon Dioxide 38 H Anion Gap 4 L BUN 37 H Creatinine 1.1 H POC Glucometer 195 174 Random Glucose 191 H D Calcium 8.3 L 02/25/17 02/26/17 02/26/17 17:26 06:29 11:17 Sodium Potassium Chloride Carbon Dioxide Anion Gap BUN Creatinine POC Glucometer 274 136 168 Random Glucose Calcium 02/26/17 02/26/17 02/27/17 16:31 21:27 06:20 Sodium Potassium Chloride Carbon Dioxide Anion Gap BUN Creatinine POC Glucometer 251 196 214 Random Glucose Calcium 02/27/17 02/27/17 10:45 11:34 Sodium 139 Potassium 4.6 Chloride 97 L Carbon Dioxide 36 H Anion Gap 6 L BUN 47 H D Creatinine 1.2 H POC Glucometer 176 Random Glucose Calcium plan: Current Medications Generic Name Dose Route Start Last Admin Trade Name Freq PRN Reason Stop Dose Admin Acetaminophen 650 mg 02/20/17 14:18 Tylenol - PO Q4H PRN FEVER OR PAIN Acetylcysteine 200 mg 02/27/17 22:00 02/27/17 21:45 Mucomyst 20 Oral / Inh Use Only* NEB 200 mg BID [facility] Administration Albuterol Sulfate 1 amp 02/27/17 11:13 02/27/17 21:45 Ventolin 0.083% Nebulizer Soln - NEB 1 amp Q4H PRN Administration SHORT OF BREATH/WHEEZING Bisacodyl 5 mg 02/27/17 11:12 Dulcolax - PO DAILY PRN CONSTIPATION Furosemide 40 mg 02/27/17 12:15 02/27/17 14:30 Lasix Injection - IVPUSH 40 mg BID@0600,1400 [facility] Administration Guaifenesin 10 ml 02/26/17 11:00 Diabetic Tussin Dm - PO Q4H PRN COUGH Heparin Sodium (Porcine) 5,000 unit 02/20/17 22:00 02/27/17 11:00 Heparin - SQ 5,000 unit BID [facility] Administration Levofloxacin 500 mg in 100 mls @ 100 mls/hr 02/21/17 10:00 02/27/17 11:00 Levaquin 500 Mg Premixed Ivpb - IVPB 100 mls/hr DAILY [facility] Administration Insulin Aspart 25 units 02/22/17 07:00 02/27/17 17:01 Novolog Mix 70/30 Vial SQ 25 units BIDAC [facility] Administration Insulin Aspart 1 vial 02/23/17 22:00 02/27/17 17:01 Novolog Vial Sliding Scale - SQ Not Given ACHS [facility] Protocol Insulin Detemir 50 units 02/23/17 07:15 02/27/17 06:54 Levemir Vial SQ 50 units BID@0700,2200 [facility] Administration Methylprednisolone Sodium Succinate 40 mg 02/26/17 17:01 02/27/17 11:00 Solu-Medrol - IVPUSH 40 mg BID [facility] Administration Pantoprazole Sodium 40 mg 02/24/17 10:00 02/27/17 11:00 Protonix - PO 40 mg DAILY [facility] Administration dc home follow up with cardiology op Problem List - Problems (1) Type 2 diabetes mellitus with other diabetic arthropathy Code(s): E11.618 - TYPE 2 DIABETES MELLITUS WITH OTHER DIABETIC ARTHROPATHY (2) Type 2 diabetes mellitus with diabetic neuropathic arthropathy Code(s): E11.610 - TYPE 2 DIABETES MELLITUS W DIABETIC NEUROPATHIC ARTHROPATHY (3) Acute hypoxemic respiratory failure Code(s): J96.01 - ACUTE RESPIRATORY FAILURE WITH HYPOXIA (4) Elevated troponin Code(s): R74.8 - ABNORMAL LEVELS OF OTHER SERUM ENZYMES (5) Hyperkalemia Code(s): E87.5 - HYPERKALEMIA (6) Shortness of breath Code(s): R06.02 - SHORTNESS OF BREATH (7) Atypical chest pain Code(s): R07.89 - OTHER CHEST PAIN (8) Chest pain Code(s): R07.9 - CHEST PAIN, UNSPECIFIED Qualifiers: Chest pain type: intercostal pain Qualified Code(s): R07.82 - Intercostal pain
[2017-02-27] MEDS ORDERED: ASPIRIN 81 MG CHEWABLE TABLETS PO ONE (23:45)
[2017-02-27] MEDS ORDERED: ASPIRIN 81 MG CHEWABLE TABLETS ONE (23:53)
[2017-02-27] MEDS ORDERED: morphine SULFATE 4 MG/ML VIAL IVPUSH ONE (23:55)
[2017-02-27] MEDS ORDERED: PANTOPRAZOLE 40 MG TABLET (FP) PO ONE (23:57)
[2017-02-27] MEDS ORDERED: NITROGLYCERIN SUBLINGUAL 1/150 0.4 MG TAB SL ONE (23:57)
[2017-02-27] MEDS ORDERED: MAG HYDROX/AL HYDROX/SIMETH 30 ML UNIT-DOSE CUP PO ONE (23:58)
[2017-02-28 00:06] LABS: C-ANCA <1:20 titer (Neg:<1:20); MYELOPEROXIDASE ANTIBODY <9.0 U/mL (0.0-9.0); P-ANCA <1:20 titer (Neg:<1:20); PROTEINASE-3 ANTIBODY <3.5 U/mL (0.0-3.5)
--- NOTE | 2017-02-28 00:13 | RAPID ---
Physical Examination Vital Signs: Vital Signs Temperature 98.3 F 02/27/17 18:52 Pulse Rate 101 H 02/27/17 18:52 Respiratory Rate 18 02/27/17 18:52 Blood Pressure 133/69 02/27/17 18:52 O2 Sat by Pulse Oximetry (%) 96 02/27/17 11:39 Findings/Remarks: UPDATE 02/28 0020h --Pt CP improving currently with morphine 2 --CXR still pending --Labs pending PHYSICIAN PRACTICE MANAGER called overhead due to pt developing tight substernal CP radiating to the left shoulder. Just prior to arrival pt was receiving solumedrol dose per her regular medication regiment. Upon arrival pt was in mild distress belching and complaining of of sever chest pain. Pt confirms lightheadedness during her CP episode. Denies n/v VS: BP 160/90 in both arms, HR 91, SpO2 96% on 3LNC PE: Gen: Mild distress, in bed, awake, alert, clutching chest Neck: No JVD appreciated Lungs: CTA b/l Card: RRR; no murmur appreciated with normal S1 and S2 Abd: obese; slighlty distended; soft; non-tender Ext: trace Bilateral edema appreciated. No erythema or cellulitis noted A/P CP differential: ACS vs. GERD; doubt worsening CHF due to acute onset EKG stat ordered --NSR @80bpm; unchanged from previous EKG. LVH criteria noted; QTc 429; mild peaked T waves noted in V2-V4; TWI noted in Lead I Troponin I stat ordered CXR portable ordered ASA 81mg administered Morphine 2mg IVP once Maalox oral suspension given once BMP ordered stat Mg ordered Amylase/Lipase Case managed with medical team Labs: CBC, BMP 02/27/17 10:45 02/27/17 10:45
[2017-02-28 01:50] LABS: AMYLASE 159 U/L (25-115); ANION GAP 10 (8-16); CALCIUM 8.8 mg/dL (8.5-10.1); CO2 35 mmol/L (21-32); CREATININE 1.4 mg/dL (0.55-1.02); GLUCOSE,RANDOM 68 mg/dL (74-106)
[2017-02-28 01:58] LABS: MAGNESIUM 2.2 mg/dL (1.8-2.4)
[2017-02-28] MEDS: INSULIN SLIDING SCALE (NOVOLOG) 1 VIAL SQ SCH ×3 (06:27→17:18)
[2017-02-28] MEDS: FUROSEMIDE 40 MG/4 ML INJECTABLE VIAL IVPUSH SCH (06:41)
[2017-02-28] MEDS: INSULIN (NOVOLOG MIX 70/30) 100 UNITS/ML MDV SQ SCH ×2 (06:41→17:21)
--- NOTE | 2017-02-28 07:50 | PN ---
Progress Note, Physician - Current Medication List Current Medications: Active Medications Acetaminophen (Tylenol -) 650 mg PO Q4H PRN PRN Reason: FEVER OR PAIN Acetylcysteine (Mucomyst 20 Oral / Inh Use Only*) 200 mg NEB BID [facility] Last Admin: 02/27/17 21:45 Dose: 200 mg Albuterol Sulfate (Ventolin 0.083% Nebulizer Soln -) 1 amp NEB Q4H PRN PRN Reason: SHORT OF BREATH/WHEEZING Last Admin: 02/27/17 21:45 Dose: 1 amp Bisacodyl (Dulcolax -) 5 mg PO DAILY PRN PRN Reason: CONSTIPATION Furosemide (Lasix Injection -) 40 mg IVPUSH BID@0600,1400 [facility] Last Admin: 02/28/17 06:41 Dose: 40 mg Guaifenesin (Diabetic Tussin Dm -) 10 ml PO Q4H PRN PRN Reason: COUGH Heparin Sodium (Porcine) (Heparin -) 5,000 unit SQ BID [facility] Last Admin: 02/27/17 23:18 Dose: 5,000 unit Levofloxacin (Levaquin 500 Mg Premixed Ivpb -) 500 mg in 100 mls @ 100 mls/hr IVPB DAILY [facility] Last Admin: 02/27/17 11:00 Dose: 100 mls/hr Insulin Aspart (Novolog Vial Sliding Scale -) 1 vial SQ ACHS [facility] PRN Reason: Protocol Last Admin: 02/28/17 06:27 Dose: Not Given Insulin Aspart (Novolog Mix 70/30 Vial) 30 units SQ BIDAC [facility] Last Admin: 02/28/17 06:41 Dose: Not Given Insulin Detemir (Levemir Vial) 50 units SQ BID@0700,2200 [facility] Last Admin: 02/27/17 23:18 Dose: 50 units Methylprednisolone Sodium Succinate (Solu-Medrol -) 40 mg IVPUSH BID [facility] Last Admin: 02/27/17 23:18 Dose: 40 mg Pantoprazole Sodium (Protonix -) 40 mg PO DAILY [facility] Last Admin: 02/27/17 11:00 Dose: 40 mg - Objective Vital Signs: Vital Signs Temperature 97.9 F 02/28/17 05:45 Pulse Rate 74 02/28/17 05:45 Respiratory Rate 18 02/28/17 05:45 Blood Pressure 137/61 02/28/17 05:45 O2 Sat by Pulse Oximetry (%) 100 02/27/17 21:00 Labs: CBC, BMP 02/27/17 10:45 INR, PTT INR 1.10 (0.82-1.09) 02/20/17 10:10 Assessment/Plan - Problems (1) HORACE (acute kidney injury) Assessment/Plan: -repeat labs today -Follow Cr given that she is on Furosemide -nephrology on board -renal U/S negative -Follow up outpatient with nephrology for renal biopsy Code(s): N17.9 - ACUTE KIDNEY FAILURE, UNSPECIFIED (2) Anemia Assessment/Plan: -repeat labs today -hematology on board -stool OB pending Code(s): D64.9 - ANEMIA, UNSPECIFIED Qualifiers: Chronic kidney disease stage: unspecified stage (3) Pneumonia Assessment/Plan: -repeat CXR improved Code(s): J18.9 - PNEUMONIA, UNSPECIFIED ORGANISM Qualifiers: Pneumonia type: due to unspecified organism Laterality: bilateral Lung location: unspecified part of lung Qualified Code(s): J18.9 - Pneumonia, unspecified organism (4) Diabetes mellitus, insulin dependent (IDDM), uncontrolled Assessment/Plan: -A1c at 10.7 -endocrinology on board -on long and short acting insulin -Diabetic diet- encouraged outpatient compliance -RD consult Code(s): E10.65 - TYPE 1 DIABETES MELLITUS WITH HYPERGLYCEMIA Qualifiers: Chronic kidney disease stage: unspecified stage (5) Shortness of breath Assessment/Plan: -nasal o2 -neb tx standing: added mucomyst, already on Robitussin Code(s): R06.02 - SHORTNESS OF BREATH (6) Chest Pain Assessment/Plan: -POST IV MEDS -W/U NOTED--REPEAT --CARDIO FOLLOW UP
[2017-02-28] MEDS ORDERED: INSULIN (NOVOLOG) ASPART 100 UNITS/ML 10ML VIAL ONE ×2 (07:55→12:19)
[2017-02-28 07:59] LABS: ANION GAP 8 (8-16); CALCIUM 9.1 mg/dL (8.5-10.1); CO2 36 mmol/L (21-32); CREATININE 1.3 mg/dL (0.55-1.02); GLUCOSE,RANDOM 85 mg/dL (74-106)
[2017-02-28 09:03] LABS: MCH 26.9 pg (25.7-33.7); MCHC 32.1 g/dl (32.0-36.0); MEAN PLT VOLUME 9.9 fl (7.5-11.1); PLATELET COUNT 295 K/MM3 (134-434); RDW 15.5 % (11.6-15.6); WHITE BLOOD COUNT 15.6 K/mm3 (4.0-10.0)
[2017-02-28 09:31] LABS: TROPONIN I 0.06 ng/ml (0.00-0.05)
[2017-02-28] MEDS: ALBUTEROL SO4 0.083% IH SOL 2.5 MG/3 ML VIAL.NEB. NEB PRN ×2 (09:45→15:20)
[2017-02-28] MEDS: ACETYLCYSTEINE 20% 200MG/ML 30 ML VIAL *FOR ORAL / INH USE ONLY NEB SCH (09:45)
[2017-02-28] MEDS: ALBUTEROL SO4 2.5/IPRATROPIUM 0.5 INH SOL 3 ML VIAL.NEB. NEB SCH ×2 (09:45→18:39)
[2017-02-28] MEDS: LEVOFLOXACIN 500 MG IVPB 500 MG/100 ML BAG IVPB SCH (09:48)
[2017-02-28] MEDS: FUROSEMIDE 40 MG TABLET (FP) PO SCH ×2 (09:48→10:11)
[2017-02-28] MEDS: methylPREDNISolone NA SUCC 40 MG/1 ML VIAL IVPUSH SCH (09:49)
[2017-02-28] MEDS: HEPARIN NA (PORCINE) 5,000 UNITS/ML 1ML VIAL SQ SCH (09:49)
[2017-02-28] MEDS: PANTOPRAZOLE 40 MG TABLET (FP) PO SCH (09:49)
[2017-02-28] MEDS: INSULIN DETEMIR 100 UNITS/ML MDV SQ SCH (10:09)
[2017-02-28 11:04] LABS: TOTAL CELLS COUNTED 100
[2017-02-28 11:05] LABS: METAMYELOCYTE 3 % (0-2); PLATELET ESTIMATE ADEQUATE
--- NOTE | 2017-02-28 12:31 | PN ---
Progress Note (short form) - Note Progress Note: Breathing feels a little better today. Still with VASQUEZ. No CP. Some dry cough. CXR: Improving congestion Intake & Output 02/25/17 02/26/17 02/27/17 02/28/17 23:59 23:59 23:59 23:59 Intake Total 300 750 920 Balance 300 750 920 Last Vital Signs Temp Pulse Resp BP Pulse Ox 98.2 F 85 18 125/60 100 02/28/17 10:00 02/28/17 10:00 02/28/17 10:00 02/28/17 10:00 02/27/17 21:00 Active Medications Acetaminophen (Tylenol -) 650 mg PO Q4H PRN PRN Reason: FEVER OR PAIN Acetylcysteine (Mucomyst 20 Oral / Inh Use Only*) 200 mg NEB BID [facility] Last Admin: 02/27/17 21:45 Dose: 200 mg Albuterol Sulfate (Ventolin 0.083% Nebulizer Soln -) 1 amp NEB Q4H PRN PRN Reason: SHORT OF BREATH/WHEEZING Last Admin: 02/27/17 21:45 Dose: 1 amp Albuterol/Ipratropium (Duoneb -) 1 amp NEB QIDR ALEE Bisacodyl (Dulcolax -) 5 mg PO DAILY PRN PRN Reason: CONSTIPATION Furosemide (Lasix -) 40 mg PO DAILY [facility] Last Admin: 02/28/17 10:11 Dose: 40 mg Guaifenesin (Diabetic Tussin Dm -) 10 ml PO Q4H PRN PRN Reason: COUGH Heparin Sodium (Porcine) (Heparin -) 5,000 unit SQ BID [facility] Last Admin: 02/28/17 09:49 Dose: 5,000 unit Levofloxacin (Levaquin 500 Mg Premixed Ivpb -) 500 mg in 100 mls @ 100 mls/hr IVPB DAILY [facility] Last Admin: 02/28/17 09:48 Dose: 100 mls/hr Insulin Aspart (Novolog Vial Sliding Scale -) 1 vial SQ ACHS [facility] PRN Reason: Protocol Last Admin: 02/28/17 12:20 Dose: 8 units Insulin Aspart (Novolog Mix 70/30 Vial) 30 units SQ BIDAC [facility] Last Admin: 02/28/17 06:41 Dose: Not Given Insulin Detemir (Levemir Vial) 50 units SQ BID@0700,2200 [facility] Last Admin: 02/28/17 10:09 Dose: Not Given Methylprednisolone Sodium Succinate (Solu-Medrol -) 40 mg IVPUSH BID [facility] Last Admin: 02/28/17 09:49 Dose: 40 mg Pantoprazole Sodium (Protonix -) 40 mg PO DAILY [facility] Last Admin: 02/28/17 09:49 Dose: 40 mg Constitutional: Yes: Obese, NAD Eyes: Yes: WNL HENT: Yes: WNL Neck: Yes: WNL Cardiovascular: Yes: Regular Rate and Rhythm, S1, S2 Respiratory: Yes: Diminished at the bases Gastrointestinal: Yes: Normal Bowel Sounds, Soft Extremities: Yes: WNL Edema: Yes Labs: Laboratory Results - last 24 hr 02/22/17 02/27/17 02/27/17 05:05 10:45 17:00 WBC RBC Hgb Hct MCV MCH MCHC RDW Plt Count MPV Total Counted 100 Neutrophils % Neutrophils % (Manual) 71.0 Band Neutrophils % Lymphocytes % Lymphocytes % (Manual) 24.0 D Monocytes % (Manual) 3 L Basophils % (Manual) Metamyelocytes 2 D Platelet Estimate Adequate Sodium Potassium Chloride Carbon Dioxide Anion Gap BUN Creatinine POC Glucometer 99 Random Glucose Calcium Magnesium Creatine Kinase Troponin I B-Natriuretic Peptide Total Amylase Lipase c-ANCA <1:20 Proteinase 3 (PR3) <3.5 p-ANCA <1:20 Atypical p-ANCA <1:20 Myeloperoxidase Ab <9.0 02/27/17 02/28/17 02/28/17 22:54 00:06 01:00 WBC RBC Hgb Hct MCV MCH MCHC RDW Plt Count MPV Total Counted Neutrophils % Neutrophils % (Manual) Band Neutrophils % Lymphocytes % Lymphocytes % (Manual) Monocytes % (Manual) Basophils % (Manual) Metamyelocytes Platelet Estimate Sodium 139 Potassium 4.1 Chloride 94 L Carbon Dioxide 35 H Anion Gap 10 BUN 58 H D Creatinine 1.4 H POC Glucometer 106 72 Random Glucose 68 L D Calcium 8.8 Magnesium Creatine Kinase Troponin I B-Natriuretic Peptide Total Amylase 159 H D Lipase c-ANCA Proteinase 3 (PR3) p-ANCA Atypical p-ANCA Myeloperoxidase Ab 02/28/17 02/28/17 02/28/17 01:00 01:00 06:00 WBC RBC Hgb Hct MCV MCH MCHC RDW Plt Count MPV Total Counted Neutrophils % Neutrophils % (Manual) Band Neutrophils % Lymphocytes % Lymphocytes % (Manual) Monocytes % (Manual) Basophils % (Manual) Metamyelocytes Platelet Estimate Sodium 137 Potassium 5.0 D Chloride 93 L Carbon Dioxide 36 H Anion Gap 8 BUN 58 H Creatinine 1.3 H POC Glucometer Random Glucose 85 D Calcium 9.1 Magnesium 2.2 D Creatine Kinase Troponin I 0.05 B-Natriuretic Peptide Total Amylase Lipase 748 H c-ANCA Proteinase 3 (PR3) p-ANCA Atypical p-ANCA Myeloperoxidase Ab 02/28/17 02/28/17 02/28/17 06:20 08:55 08:55 WBC 15.6 H RBC 4.18 Hgb 11.2 Hct 35.1 MCV 84.0 MCH 26.9 MCHC 32.1 RDW 15.5 Plt Count 295 MPV 9.9 Total Counted 100 Neutrophils % No Result Required. Neutrophils % (Manual) 80.0 Band Neutrophils % 1.0 Lymphocytes % No Result Required. Lymphocytes % (Manual) 13.0 D Monocytes % (Manual) Basophils % (Manual) 2.0 Metamyelocytes 3 H D Platelet Estimate Adequate Sodium Potassium Chloride Carbon Dioxide Anion Gap BUN Creatinine POC Glucometer 82 Random Glucose Calcium Magnesium Creatine Kinase 115 Troponin I 0.06 H B-Natriuretic Peptide Total Amylase Lipase c-ANCA Proteinase 3 (PR3) p-ANCA Atypical p-ANCA Myeloperoxidase Ab 02/28/17 02/28/17 02/28/17 08:55 08:55 10:07 WBC RBC Hgb Hct MCV MCH MCHC RDW Plt Count MPV Total Counted Neutrophils % Neutrophils % (Manual) Band Neutrophils % Lymphocytes % Lymphocytes % (Manual) Monocytes % (Manual) Basophils % (Manual) Metamyelocytes Platelet Estimate Sodium Potassium Chloride Carbon Dioxide Anion Gap BUN Creatinine POC Glucometer 202 Random Glucose Calcium Magnesium Creatine Kinase Troponin I B-Natriuretic Peptide 811.22 H Total Amylase Lipase 369 c-ANCA Proteinase 3 (PR3) p-ANCA Atypical p-ANCA Myeloperoxidase Ab 02/28/17 12:01 WBC RBC Hgb Hct MCV MCH MCHC RDW Plt Count MPV Total Counted Neutrophils % Neutrophils % (Manual) Band Neutrophils % Lymphocytes % Lymphocytes % (Manual) Monocytes % (Manual) Basophils % (Manual) Metamyelocytes Platelet Estimate Sodium Potassium Chloride Carbon Dioxide Anion Gap BUN Creatinine POC Glucometer 249 Random Glucose Calcium Magnesium Creatine Kinase Troponin I B-Natriuretic Peptide Total Amylase Lipase c-ANCA Proteinase 3 (PR3) p-ANCA Atypical p-ANCA Myeloperoxidase Ab Problem List - Problems (1) Acute hypoxemic respiratory failure Code(s): J96.01 - ACUTE RESPIRATORY FAILURE WITH HYPOXIA (2) Pneumonia Code(s): J18.9 - PNEUMONIA, UNSPECIFIED ORGANISM Qualifiers: Pneumonia type: due to unspecified organism Laterality: bilateral Lung location: unspecified part of lung Qualified Code(s): J18.9 - Pneumonia, unspecified organism (3) Shortness of breath Code(s): R06.02 - SHORTNESS OF BREATH (4) Chest pain Code(s): R07.9 - CHEST PAIN, UNSPECIFIED Qualifiers: Chest pain type: intercostal pain Qualified Code(s): R07.82 - Intercostal pain (5) Cough Code(s): R05 - COUGH (6) Diabetes mellitus, insulin dependent (IDDM), uncontrolled Code(s): E10.65 - TYPE 1 DIABETES MELLITUS WITH HYPERGLYCEMIA Qualifiers: Chronic kidney disease stage: unspecified stage (7) Dizziness Code(s): R42 - DIZZINESS AND GIDDINESS (8) HLD (hyperlipidemia) Code(s): E78.5 - HYPERLIPIDEMIA, UNSPECIFIED (9) Hypertension Code(s): I10 - ESSENTIAL (PRIMARY) HYPERTENSION Assessment/Plan IMP ACUTE HYPOXEMIC RESPIRATORY FAILURE IMPROVING PNEUMONIA ASTHMA HORACE ELEVATED TROPONIN LEVEL CHF DM PILMONARY HTN OSAS PLAN INHALED BRONCHODILATORS O2 ANTIBIOTICS D/C STEROIDS AND MONITOR LASIX MONITOR LYTES,RENAL FUNCTION FORMAL SLEEP STUDIES OUTPATIENT DR VARGHESE
[2017-02-28 15:39] VITALS: PULSE 76; TEMP 98.4
--- NOTE | 2017-02-28 16:09 | PN ---
Progress Note, Physician Chief Complaint: Chest Pain History of Present Illness: This is a 66 year old female, history of asthma, NIDDM, HTN, chol, who presents with SOB, nasal congestion, chest tightness, orthopnea, edema, and chills that started on 5 days prior to admission. Initially the chest pain was associated with coughing and was somewhat exertional. echo 02/21/17 normal EF. 02/28/17 She continues to have chest pain. Troponin 0.05, 0.06, 0.06 - Current Medication List Current Medications: Active Medications Acetaminophen (Tylenol -) 650 mg PO Q4H PRN PRN Reason: FEVER OR PAIN Acetylcysteine (Mucomyst 20 Oral / Inh Use Only*) 200 mg NEB BID [facility] Last Admin: 02/28/17 09:45 Dose: 200 mg Albuterol Sulfate (Ventolin 0.083% Nebulizer Soln -) 1 amp NEB Q4H PRN PRN Reason: SHORT OF BREATH/WHEEZING Last Admin: 02/28/17 15:20 Dose: 1 amp Albuterol/Ipratropium (Duoneb -) 1 amp NEB QIDR ALEE Bisacodyl (Dulcolax -) 5 mg PO DAILY PRN PRN Reason: CONSTIPATION Furosemide (Lasix -) 40 mg PO DAILY [facility] Last Admin: 02/28/17 10:11 Dose: 40 mg Guaifenesin (Diabetic Tussin Dm -) 10 ml PO Q4H PRN PRN Reason: COUGH Heparin Sodium (Porcine) (Heparin -) 5,000 unit SQ BID [facility] Last Admin: 02/28/17 09:49 Dose: 5,000 unit Levofloxacin (Levaquin 500 Mg Premixed Ivpb -) 500 mg in 100 mls @ 100 mls/hr IVPB DAILY [facility] Last Admin: 02/28/17 09:48 Dose: 100 mls/hr Insulin Aspart (Novolog Vial Sliding Scale -) 1 vial SQ ACHS [facility] PRN Reason: Protocol Last Admin: 02/28/17 12:20 Dose: 8 units Insulin Aspart (Novolog Mix 70/30 Vial) 30 units SQ BIDAC [facility] Last Admin: 02/28/17 06:41 Dose: Not Given Insulin Detemir (Levemir Vial) 50 units SQ BID@0700,2200 [facility] Last Admin: 02/28/17 10:09 Dose: Not Given Methylprednisolone Sodium Succinate (Solu-Medrol -) 40 mg IVPUSH BID [facility] Last Admin: 02/28/17 09:49 Dose: 40 mg Pantoprazole Sodium (Protonix -) 40 mg PO DAILY [facility] Last Admin: 02/28/17 09:49 Dose: 40 mg - Objective Vital Signs: Vital Signs Temperature 98.4 F 02/28/17 14:00 Pulse Rate 76 02/28/17 14:00 Respiratory Rate 18 02/28/17 10:00 Blood Pressure 125/60 02/28/17 10:00 O2 Sat by Pulse Oximetry (%) 97 02/28/17 09:45 Constitutional: Yes: Mild Distress Neck: Yes: WNL Cardiovascular: Yes: Regular Rate and Rhythm (NL S1S2, No MRHG) Respiratory: Yes: Wheezes (Bilaterally) Gastrointestinal: Yes: Soft Edema: LLE: Trace, RLE: Trace Neurological: Yes: Alert, Oriented (Grossly nonfocal) Labs: CBC, BMP 02/28/17 08:55 02/28/17 06:00 INR, PTT INR 1.10 (0.82-1.09) 02/20/17 10:10 Assessment/Plan Chest Pain Mildly elevated troponin levels No acute changes on the EKG Most likely demand ischemia Would add Nitropaste Would change SQ heparin to IV given chest pain and positive troponins Will transfer to [facility] for a cardiac cath
--- NOTE | 2017-02-28 16:24 | PN ---
Progress Note, Physician History of Present Illness: Pt seen and examined at bedside. She complains of shortness of breath. Rapid responce was called earlier today. She is going for a stress test. - Current Medication List Current Medications: Active Medications Acetaminophen (Tylenol -) 650 mg PO Q4H PRN PRN Reason: FEVER OR PAIN Acetylcysteine (Mucomyst 20 Oral / Inh Use Only*) 200 mg NEB BID [facility] Last Admin: 02/28/17 09:45 Dose: 200 mg Albuterol Sulfate (Ventolin 0.083% Nebulizer Soln -) 1 amp NEB Q4H PRN PRN Reason: SHORT OF BREATH/WHEEZING Last Admin: 02/28/17 15:20 Dose: 1 amp Albuterol/Ipratropium (Duoneb -) 1 amp NEB QIDR ALEE Bisacodyl (Dulcolax -) 5 mg PO DAILY PRN PRN Reason: CONSTIPATION Bisacodyl (Dulcolax -) 10 mg PO ONCE ONE Stop: 02/28/17 16:21 Furosemide (Lasix -) 40 mg PO DAILY [facility] Last Admin: 02/28/17 10:11 Dose: 40 mg Guaifenesin (Diabetic Tussin Dm -) 10 ml PO Q4H PRN PRN Reason: COUGH Heparin Sodium (Porcine) (Heparin -) 5,000 unit SQ BID [facility] Last Admin: 02/28/17 09:49 Dose: 5,000 unit Levofloxacin (Levaquin 500 Mg Premixed Ivpb -) 500 mg in 100 mls @ 100 mls/hr IVPB DAILY [facility] Last Admin: 02/28/17 09:48 Dose: 100 mls/hr Insulin Aspart (Novolog Vial Sliding Scale -) 1 vial SQ ACHS [facility] PRN Reason: Protocol Last Admin: 02/28/17 12:20 Dose: 8 units Insulin Aspart (Novolog Mix 70/30 Vial) 30 units SQ BIDAC [facility] Last Admin: 02/28/17 06:41 Dose: Not Given Insulin Detemir (Levemir Vial) 50 units SQ BID@0700,2200 [facility] Last Admin: 02/28/17 10:09 Dose: Not Given Methylprednisolone Sodium Succinate (Solu-Medrol -) 40 mg IVPUSH BID [facility] Last Admin: 02/28/17 09:49 Dose: 40 mg Pantoprazole Sodium (Protonix -) 40 mg PO DAILY [facility] Last Admin: 02/28/17 09:49 Dose: 40 mg Polyethylene Glycol (Miralax (For Daily Use) -) 17 gm PO DAILY [facility] - Objective Vital Signs: Vital Signs Temperature 98.4 F 02/28/17 14:00 Pulse Rate 76 02/28/17 14:00 Respiratory Rate 18 02/28/17 10:00 Blood Pressure 125/60 02/28/17 10:00 O2 Sat by Pulse Oximetry (%) 97 02/28/17 09:45 Constitutional: Yes: Calm Eyes: Yes: Conjunctiva Clear HENT: Yes: Atraumatic Cardiovascular: Yes: S1, S2 Respiratory: Yes: On Nasal O2, Wheezes Gastrointestinal: Yes: Soft, Abdomen, Obese Genitourinary: Yes: WNL Musculoskeletal: Yes: WNL Edema: Yes Edema: LLE: 1+, RLE: 1+ Neurological: Yes: Oriented Psychiatric: Yes: Oriented Labs: CBC, BMP 02/28/17 08:55 02/28/17 06:00 INR, PTT INR 1.10 (0.82-1.09) 02/20/17 10:10 Problem List - Problems (1) Hyperkalemia Code(s): E87.5 - HYPERKALEMIA (2) Acute hypoxemic respiratory failure Code(s): J96.01 - ACUTE RESPIRATORY FAILURE WITH HYPOXIA (3) Pneumonia Code(s): J18.9 - PNEUMONIA, UNSPECIFIED ORGANISM Qualifiers: Qualified Code(s): J18.9 - Pneumonia, unspecified organism (4) Shortness of breath Code(s): R06.02 - SHORTNESS OF BREATH (5) Diabetes mellitus, insulin dependent (IDDM), uncontrolled Code(s): E10.65 - TYPE 1 DIABETES MELLITUS WITH HYPERGLYCEMIA Qualifiers: Qualified Code(s): E10.22 - Type 1 diabetes mellitus with diabetic chronic kidney disease; E10.65 - Type 1 diabetes mellitus with hyperglycemia; E10.65 - Type 1 diabetes mellitus with hyperglycemia; E10.65 - Type 1 diabetes mellitus with hyperglycemia; E10.65 - Type 1 diabetes mellitus with hyperglycemia; N18.9 - Chronic kidney disease, unspecified; N18.9 - Chronic kidney disease, unspecified Assessment/Plan Current Medications Generic Name Dose Route Start Last Admin Trade Name Freq PRN Reason Stop Dose Admin Acetaminophen 650 mg 02/20/17 14:18 Tylenol - PO Q4H PRN FEVER OR PAIN Acetylcysteine 200 mg 02/27/17 22:00 02/28/17 09:45 Mucomyst 20 Oral / Inh Use Only* NEB 200 mg BID ALEE Administration Albuterol Sulfate 1 amp 02/27/17 11:13 02/28/17 15:20 Ventolin 0.083% Nebulizer Soln - NEB 1 amp Q4H PRN Administration SHORT OF BREATH/WHEEZING Albuterol/Ipratropium 1 amp 02/28/17 08:00 Duoneb - NEB QIDR ALEE Bisacodyl 5 mg 02/27/17 11:12 Dulcolax - PO DAILY PRN CONSTIPATION Bisacodyl 10 mg 02/28/17 16:30 Dulcolax - PO 02/28/17 16:31 ONCE ONE Furosemide 40 mg 02/28/17 09:30 02/28/17 10:11 Lasix - PO 40 mg DAILY [facility]E Administration Guaifenesin 10 ml 02/26/17 11:00 Diabetic Tussin Dm - PO Q4H PRN COUGH Heparin Sodium (Porcine) 5,000 unit 02/20/17 22:00 02/28/17 09:49 Heparin - SQ 5,000 unit BID [facility] Administration Levofloxacin 500 mg in 100 mls @ 100 mls/hr 02/21/17 10:00 02/28/17 09:48 Levaquin 500 Mg Premixed Ivpb - IVPB 100 mls/hr DAILY [facility] Administration Insulin Aspart 1 vial 02/23/17 22:00 02/28/17 12:20 Novolog Vial Sliding Scale - SQ 8 units ACHS [facility] Administration Protocol Insulin Aspart 30 units 02/28/17 07:00 02/28/17 06:41 Novolog Mix 70/30 Vial SQ Not Given BIDAC [facility] Insulin Detemir 50 units 02/23/17 07:15 02/28/17 10:09 Levemir Vial SQ Not Given BID@0700,2200 [facility] Methylprednisolone Sodium Succinate 40 mg 02/26/17 17:01 02/28/17 09:49 Solu-Medrol - IVPUSH 40 mg BID [facility] Administration Pantoprazole Sodium 40 mg 02/24/17 10:00 02/28/17 09:49 Protonix - PO 40 mg DAILY [facility] Administration Polyethylene Glycol 17 gm 03/01/17 10:00 Miralax (For Daily Use) - PO DAILY [facility] Impression 1. hyperkalemia 2. vascular congestion 3. DM 4. PNA 5. obesity 6. HTN 7. chest pain 8. proteinuria 9. CKD 10. hepatic steatosis Plan - cont with lasix - repeat labs in am - follow stress test results - heme eval - pt does have positive mallory, workup is in progress - will need kidney biopsy one more stable - will need daily labs - cont with oxygen - reviewed labs and meds - will follow Dr Sahu
[2017-02-28] MEDS ORDERED: BISACODYL 5 MG TABLET.DR (FP) PO ONE (16:30)
--- NOTE | 2017-02-28 17:23 | PN ---
Progress Note, Physician History of Present Illness: Dyspneic with minimal exertion + cough and sinus/nasal congestion No c/o chest pain Afebrile - Current Medication List Current Medications: Active Medications Acetaminophen (Tylenol -) 650 mg PO Q4H PRN PRN Reason: FEVER OR PAIN Acetylcysteine (Mucomyst 20 Oral / Inh Use Only*) 200 mg NEB BID [facility] Last Admin: 02/28/17 09:45 Dose: 200 mg Albuterol Sulfate (Ventolin 0.083% Nebulizer Soln -) 1 amp NEB Q4H PRN PRN Reason: SHORT OF BREATH/WHEEZING Last Admin: 02/28/17 15:20 Dose: 1 amp Albuterol/Ipratropium (Duoneb -) 1 amp NEB QIDR ALEE Bisacodyl (Dulcolax -) 5 mg PO DAILY PRN PRN Reason: CONSTIPATION Furosemide (Lasix -) 40 mg PO DAILY [facility] Last Admin: 02/28/17 10:11 Dose: 40 mg Guaifenesin (Diabetic Tussin Dm -) 10 ml PO Q4H PRN PRN Reason: COUGH Heparin Sodium (Porcine) (Heparin -) 5,000 unit SQ BID [facility] Last Admin: 02/28/17 09:49 Dose: 5,000 unit Levofloxacin (Levaquin 500 Mg Premixed Ivpb -) 500 mg in 100 mls @ 100 mls/hr IVPB DAILY [facility] Last Admin: 02/28/17 09:48 Dose: 100 mls/hr Insulin Aspart (Novolog Vial Sliding Scale -) 1 vial SQ ACHS [facility] PRN Reason: Protocol Last Admin: 02/28/17 17:18 Dose: 5 units Insulin Aspart (Novolog Mix 70/30 Vial) 30 units SQ BIDAC [facility] Last Admin: 02/28/17 06:41 Dose: Not Given Insulin Detemir (Levemir Vial) 50 units SQ BID@0700,2200 [facility] Last Admin: 02/28/17 10:09 Dose: Not Given Methylprednisolone Sodium Succinate (Solu-Medrol -) 40 mg IVPUSH BID [facility] Last Admin: 02/28/17 09:49 Dose: 40 mg Pantoprazole Sodium (Protonix -) 40 mg PO DAILY [facility] Last Admin: 02/28/17 09:49 Dose: 40 mg Polyethylene Glycol (Miralax (For Daily Use) -) 17 gm PO DAILY [facility] - Objective Vital Signs: Vital Signs Temperature 98.4 F 02/28/17 14:00 Pulse Rate 76 02/28/17 14:00 Respiratory Rate 18 02/28/17 10:00 Blood Pressure 125/60 02/28/17 10:00 O2 Sat by Pulse Oximetry (%) 97 02/28/17 09:45 Constitutional: Yes: Obese Eyes: Yes: Conjunctiva Clear Cardiovascular: Yes: Regular Rate and Rhythm, S1, S2 Respiratory: Yes: Other (+ crepitations, bases) Gastrointestinal: Yes: Normal Bowel Sounds, Soft, Abdomen, Obese, Tenderness Edema: Yes Labs: CBC, BMP 02/28/17 08:55 02/28/17 06:00 INR, PTT INR 1.10 (0.82-1.09) 02/20/17 10:10 Assessment/Plan Bilateral pneumonia ? CHF Respiratory insufficiency Leukocytosis- ? steroid-induced PCN allergy Continue levaquin
[2017-02-28 18:55] VITALS: BP 125/96
--- NOTE | 2017-03-01 07:44 | EKG ---
Test Reason : Blood Pressure : / mmHG Vent. Rate : 094 BPM Atrial Rate : 094 BPM P-R Int : 148 ms QRS Dur : 106 ms QT Int : 364 ms P-R-T Axes : 052 -36 099 degrees QTc Int : 455 ms NORMAL SINUS RHYTHM LEFT AXIS DEVIATION LEFT VENTRICULAR HYPERTROPHY WITH REPOLARIZATION ABNORMALITY ABNORMAL ECG WHEN COMPARED WITH ECG OF 21-FEB-2017 09:52, T WAVE INVERSION LESS EVIDENT IN LATERAL LEADS Confirmed by Yonny Sparks ([id number]) on 02/28/2017 2:36:15 PM Also confirmed by MD Sparks Daniel [id number]), metropolitan editor YONNY DAMON ([id number]) on 03/01/2017 7:43:47 AM Also confirmed by MD Sparks Daniel [id number]), metropolitan editor YONNY DAMON ([id number]) on 03/01/2017 7:49:44 AM Referred By: Florian PEREZ Confirmed By:Yonny Sparks MD
--- NOTE | 2017-03-01 07:51 | EKG ---
Test Reason : Blood Pressure : / mmHG Vent. Rate : 080 BPM Atrial Rate : 080 BPM P-R Int : 138 ms QRS Dur : 106 ms QT Int : 372 ms P-R-T Axes : 077 -27 101 degrees QTc Int : 429 ms NORMAL SINUS RHYTHM LEFT VENTRICULAR HYPERTROPHY WITH REPOLARIZATION ABNORMALITY ABNORMAL ECG WHEN COMPARED WITH ECG OF 21-FEB-2017 09:52, NO SIGNIFICANT CHANGE WAS FOUND Confirmed by Yonny Sparks ([id number]) on 02/28/2017 2:41:54 PM Also confirmed by MD Bridger, Yonny ([id number]), general expeditor YONNY DAMON ([id number]) on 03/01/2017 7:51:22 AM Referred By: IVANNA Confirmed By:Yonny Sparks MD
[2017-03-01] MEDS ORDERED: POLYETHYLENE GLYCOL 3350 119 GM BTL PO SCH (10:00)
[2017-03-03 05:42] LABS: ALBUMIN FOR UPE 58.2
[2017-03-03 05:43] LABS: GAMMA GLOBULIN % 13.1 %; M-SPIKE, % NOT OBSERVED
== END 2017-02-28 20:52 | disposition short-term general hospital (02) | DRG 189 ==
LOC: JER 09:28 → JERBED 11:34 → J4W 02-21 01:17 → J7W 02-22 16:55
PROVIDERS: ADMIT Student in an Organized Health Care Education/Training Program; ATTEND Student in an Organized Health Care Education/Training Program
DX: J96.01 Acute respiratory failure with hypoxia (principal); J18.9 Pneumonia, unspecified organism; N17.9 Acute kidney failure, unspecified; Z68.42 Body mass index [BMI] 45.0-49.9, adult; I13.0 Hypertensive heart and chronic kidney disease with heart failure and stage 1 through stage 4 chronic kidney disease, or unspecified chronic kidney disease; J44.1 Chronic obstructive pulmonary disease with (acute) exacerbation; J45.909 Unspecified asthma, uncomplicated; I27.20 Pulmonary hypertension, unspecified; G47.33 Obstructive sleep apnea (adult) (pediatric); D64.9 Anemia, unspecified; E10.65 Type 1 diabetes mellitus with hyperglycemia; E11.618 Type 2 diabetes mellitus with other diabetic arthropathy; E11.610 Type 2 diabetes mellitus with diabetic neuropathic arthropathy; E87.5 Hyperkalemia; R07.89 Other chest pain; D72.829 Elevated white blood cell count, unspecified; Z88.0 Allergy status to penicillin; K76.0 Fatty (change of) liver, not elsewhere classified; E66.01 Morbid (severe) obesity due to excess calories; E11.22 Type 2 diabetes mellitus with diabetic chronic kidney disease; N18.9 Chronic kidney disease, unspecified; I50.9 Heart failure, unspecified; R42 Dizziness and giddiness; K59.00 Constipation, unspecified; E04.9 Nontoxic goiter, unspecified
CPT/HCPCS: 36415; 71010-TC; 71250-TC; 74020-TC; 76775-TC; 80048; 80053; 80061; 81003; 81015; 82150; 82550; 82553; 82570; 82607; 82728; 82747; 82803; 83036; 83520; 83540; 83550; 83605; 83615; 83690; 83721; 83735; 83880; 83883; 84155; 84156; 84157; 84165; 84439; 84443; 84484; 85014; 85025; 85610; 85651; 85730; 86038; 86140; 86256; 86850; 86900; 86901; 87040; 87086; 87804; 87899; 93005; 93010; 93306-TC; 94640; 97116-GP; 97161-GP; 99285-25; J1644

== ENCOUNTER 2017-06-19 10:42 | Inpatient (IN) | payer BC, OTHER ==
--- NOTE | 2017-06-19 12:31 | PDOC ---
History of Present Illness - General Chief Complaint: Shortness of Breath Stated Complaint: CHEST PAIN Time Seen by Provider: 06/19/17 11:54 History Source: Patient Exam Limitations: No Limitations - History of Present Illness Initial Comments: 06/19/17 14:39 HPI: This obese 66-year-old female who does not speak [place] African is with her son with a piece of paper in her hand stating that the patient needs to be worked up for her CHF and CAD. She apparently has been having some shortness of breath and chest pain for several days. The paper is dated from her primary physician, Dr. Michel from June 15. She's been having this chest pain on and off as well as some shortness of breath. She does appear to be pallor. She is not having excessive respiratory distress. Denies any fever. Apparently the patient was seen here about 2 months ago for an episode of chest pain and was transferred out to [facility] under the second shift supervisor Dr. De La Torre who had placed 2 cardiac stents in her LAD. She has not followed up with any physician. Chief Compliant:sob cp Pain location: External chest pain Duration: For several days Modifying factors: None Quality: Radiating: None Severity: Time: PMH: Diabetes, hyperlipidemia, obesity, CAD, cardiac stents 2 in the LAD most recently FH: Pt has not recently traveled outside the country in the last 30 days. Pt has not been in contact with people who have traveled out of the country, in contact with people who have been ill with fever, n, v, d. SH: smoking use: NONE illicit drug use: NONE alcohol use: NONE PSH: Home med use noted on MAY Allergies: Penicillin Immunizations: PCP: Dr. Michel Past History - Past Medical History Allergies/Adverse Reactions: Allergies Allergy/AdvReac Type Severity Reaction Status Date / Time Penicillins Allergy Difficulty Verified 06/19/17 10:48 Breathing Home Medications: Ambulatory Orders Aspirin [ASA -] 81 mg PO DAILY 08/02/12 Mometasone Furoate [Asmanex 220Mcg -] 2 inh IH DAILY PRN 08/02/12 Atorvastatin Ca [Lipitor] 40 mg PO HS #30 tablet 01/02/15 Insulin (Levemir) [Levemir Flexpen -] 30 units SQ DAILY@0700 07/03/16 Insulin Lispro Protamin/Lispro [Humalog Mix 50-50 Vial] 15 unit SQ BID 07/03/16 Clopidogrel Bisulfate [Plavix -] 75 mg PO DAILY 06/19/17 Metoprolol Succinate [Toprol Xl] 25 mg PO DAILY 06/19/17 Asthma: Yes Cardiac Disorders: Yes COPD: No Diabetes: Yes HTN: Yes Hypercholesterolemia: Yes - Surgical History Abdominal Surgery: Yes Cardiac Surgery: Yes (angiocath card stent x2) Orthopedic Surgery: Yes (knee surgery) - Immunization History Immunization Up to Date: Yes - Suicide/Smoking/Psychosocial Hx Smoking Status: No Smoking History: Never smoked Have you smoked in the past 12 months: No Number of Cigarettes Smoked Daily: 0 Information on smoking cessation initiated: No Hx Alcohol Use: No Drug/Substance Use Hx: No Substance Use Type: None Hx Substance Use Treatment: No Review of Systems - Review of Systems Able to Perform ROS?: Yes Comments:: 06/19/17 14:51 General statement: In for days Hematology: neg history of bleeding/blood thinners she's never required a transfusion in the past Skin: Neg for lesions, rash, bruising. HEENT: Neg symptoms Respiratory: + SOB or difficulty in breathing Cardiac:+ chest pain GI: Neg pain, n/v : Neg problems on voiding MS: Neg for joint pain/stiffness, no edema Neuro: Neg for LOC, weakness, Endocrine: Neg for excess thirst/hunger, cold/heat intolerance, excess sweating Allergies: + for allergies *Physical Exam - Vital Signs Last Vital Signs Temp Pulse Resp BP Pulse Ox 98.0 F 88 18 159/75 100 06/19/17 10:49 06/19/17 10:49 06/19/17 10:49 06/19/17 10:49 06/19/17 10:49 - Physical Exam Comments: 06/19/17 14:52 General Appearance: This pale appearing obese female V/S: hemodynamically stable, afebrile Skin: paole of pt's skin color, Head:symmetrical Eyes: EOM's intact, PERRLA Ears: denies pain Nose: patent Throat: lips, teeth, gums, tongue, buccal mucos pink and moist Lungs: Chest symmetry equal. Cap refill <3 seconds. Lung sounds clear Cardiac: PMI at R 4MCL space, pos S1 and S2, regular rate. Abdomen: Soft, round, nontender : Not observed Muscularskeletal: Gait steady, ambulated in to ER, no edema +PMS Neuro: AAOx3, cognitively intact, speech clear and appropriate. ED Treatment Course - LABORATORY CBC & Chemistry Diagram: 06/19/17 13:00 06/19/17 13:00 Medical Decision Making - Medical Decision Making 06/19/17 14:54 Patient initially seen and examined with some of the bedside. Patient appears pale to me during interview. She is not having any significant shortness of breath but she is complaining of some shortness of breath. She is able to complete sentences without having to stop to catch her breath. She does have a history of chest pain, NC, stent placement not long ago in the LAD 2. This occurred down in [facility]. She was told to come in after speaking with her primary doctor last week, Dr. Michel to come in for a workup on her shortness of breath and chest pain. She is now here and she is found to have a low H/H 6/20. Patient will be receiving 2 units of packed red blood cells. Consent has been obtained. I am trying to reach out to Dr. Payne/jaylon to admit pt. Son is by the bedside and is aware of admission. 06/19/17 14:58 's EKG shows left axis deviation in a normal sinus rhythm. 06/19/17 15:38 Have attempted for the last hour to reach the admitting physician. Spoke with Dr. Payne for admission, he requesteed Dr. Pat holguin rcardiology 06/19/17 15:51 *DC/Admit/Observation/Transfer Diagnosis at time of Disposition: Shortness of breath Anemia Qualifiers: Anemia type: other cause - Discharge Dispostion Condition at time of disposition: Guarded Admit: Yes - Referrals Referrals: Russell Philip MD [Primary Care Provider] - - Patient Instructions - Post Discharge Activity
[2017-06-19 13:27] LABS: URINE APPEARANCE CLEAR; URINE BILIRUBIN NEGATIVE (<2.0 mg/dL); URINE BLOOD NEGATIVE (NEGATIVE); URINE COLOR LTYELLOW; URINE GLUCOSE (UA) 1+ (NEGATIVE); URINE KETONE NEGATIVE (NEGATIVE); URINE LEUK ESTERASE NEGATIVE (NEGATIVE); URINE NITRITE NEGATIVE (NEGATIVE); URINE UROBILINOGEN NEGATIVE mg/dL (0.2-1.0)
[2017-06-19 13:30] LABS: BASO % 1.1 % (0-2.0); EOS % 2.1 % (0-4.5); HEMATOCRIT 20.5 % (32.4-45.2); LYMPH % 13.2 % (8-40); MCH 25.8 pg (25.7-33.7); MCHC 31.3 g/dl (32.0-36.0); MEAN CELL VOLUME 82.4 fl (80-96); MEAN PLT VOLUME 10.3 fl (7.5-11.1); MONO % 6.8 % (3.8-10.2); NEUT % 76.8 % (42.8-82.8); PLATELET COUNT 256 K/MM3 (134-434); RBC 2.49 M/mm3 (3.60-5.2); RDW 18.4 % (11.6-15.6); WHITE BLOOD COUNT 7.7 K/mm3 (4.0-10.0)
[2017-06-19 13:34] LABS: ALBUMIN 2.8 g/dl (3.4-5.0); ALK PHOS 89 U/L (45-117); ANION GAP 8 (8-16); BILIRUBIN,TOTAL 0.3 mg/dL (0.2-1.0); BLOOD UREA NITROGEN 24 mg/dL (7-18); CALCIUM 8.3 mg/dL (8.5-10.1); CHLORIDE 102 mmol/L (98-107); CO2 29 mmol/L (21-32); GLUCOSE,RANDOM 244 mg/dL (74-106); SGPT/ALT 22 U/L (12-78); SODIUM 139 mmol/L (136-145); TOT PROT 6.6 g/dl (6.4-8.2)
[2017-06-19 13:38] LABS: POTASSIUM 5.2 mmol/L (3.5-5.1); SGOT/AST 15 U/L (15-37)
[2017-06-19 13:49] LABS: HEMOGLOBIN 6.4 GM/dL (10.7-15.3)
[2017-06-19 14:11] LABS: URINE PROTEIN 2+ (NEGATIVE)
--- NOTE | 2017-06-19 14:40 | EKG ---
Test Reason : Blood Pressure : / mmHG Vent. Rate : 084 BPM Atrial Rate : 084 BPM P-R Int : 154 ms QRS Dur : 102 ms QT Int : 390 ms P-R-T Axes : 033 -38 115 degrees QTc Int : 460 ms NORMAL SINUS RHYTHM LEFT AXIS DEVIATION ABNORMAL ECG WHEN COMPARED WITH ECG OF 28-FEB-2017 09:12, NO SIGNIFICANT CHANGE WAS FOUND Confirmed by NELY RAI MD ([id number]) on 06/19/2017 2:40:43 PM Referred By: Confirmed By:NELY RAI MD
[2017-06-19 15:59] LABS: EPI CELLS FEW /HPF (FEW)
[2017-06-19 16:00] LABS: URINE BACTERIA RARE /hpf (NONE SEEN)
[2017-06-19] MEDS ORDERED: MOMETASONE FUROATE 220 MCG/IH INHALER IH PRN (19:05)
[2017-06-19] MEDS ORDERED: PANTOPRAZOLE SODIUM 80 MG in SODIUM CHLORIDE 100 ML IVPB SCH (19:15)
[2017-06-19] MEDS ORDERED: ALBUTEROL SO4 0.083% IH SOL 2.5 MG/3 ML VIAL.NEB. NEB PRN (21:38)
[2017-06-19] MEDS: INSULIN SLIDING SCALE (NOVOLOG) 1 VIAL SQ SCH (22:15)
[2017-06-19] MEDS: INSULIN DETEMIR 100 UNITS/ML MDV SQ SCH (22:16)
[2017-06-19] MEDS ORDERED: INSULIN REGULAR HUMAN 100 UNITS/ML *VIAL ONE (22:20)
[2017-06-19] MEDS ORDERED: INSULIN DETEMIR 100 UNITS/ML MDV SQ ONE (22:20)
--- NOTE | 2017-06-19 22:35 | CONSULT ---
Consult Consult Specialty:: endocrine Referred by:: genevieve byrd md Reason for Consultation:: hyperglycemia - History of Present Illness Chief Complaint: shortness of breath History of Present Illness: 66-year-old female who does not speak Vietnamese is with her son with a piece of paper in her hand stating that the patient needs to be worked up for her CHF and CAD. She has been having some shortness of breath and chest pain for past serveral days,worsening with chest heaviness,and exertion was advised to present to er for admission. - History Source History Provided By: Patient - Past Medical History Cardio/Vascular: Yes: HTN, Hyperlipdemia Pulmonary: Yes: Asthma, Sleep Apnea Gastrointestinal: Yes: GERD Musculoskeletal: Yes: Osteoarthritis Endocrine: Yes: Diabetes Mellitus - Alcohol/Substance Use Hx Alcohol Use: No - Smoking History Smoking history: Never smoked Have you smoked in the past 12 months: No Aproximately how many cigarettes per day: 0 Home Medications - Allergies Allergies/Adverse Reactions: Allergies Allergy/AdvReac Type Severity Reaction Status Date / Time Penicillins Allergy Difficulty Verified 06/19/17 10:48 Breathing - Home Medications Home Medications: Ambulatory Orders Aspirin [ASA -] 81 mg PO DAILY 08/02/12 Mometasone Furoate [Asmanex 220Mcg -] 2 inh IH DAILY PRN 08/02/12 Atorvastatin Ca [Lipitor] 40 mg PO HS #30 tablet 01/02/15 Insulin (Levemir) [Levemir Flexpen -] 30 units SQ DAILY@0700 07/03/16 Insulin Lispro Protamin/Lispro [Humalog Mix 50-50 Vial] 15 unit SQ BID 07/03/16 Clopidogrel Bisulfate [Plavix -] 75 mg PO DAILY 06/19/17 Metoprolol Succinate [Toprol Xl] 25 mg PO DAILY 06/19/17 Review of Systems - Review of Systems Constitutional: reports: Lethargy Eyes: reports: Blurred Vision HENT: reports: No Symptoms Neck: reports: No Symptoms Cardiovascular: reports: Palpitations, Shortness of Breath Respiratory: reports: Exercise Intolerance, SOB Gastrointestinal: reports: Bloating, Constipation Breasts: reports: No Symptoms Reported Musculoskeletal: reports: Joint Swelling, Muscle Cramps, Muscle Weakness Integumentary: reports: No Symptoms Neurological: reports: Weakness Endocrine: reports: Unexplained Weight Gain Physical Exam Vital Signs: Vital Signs Temperature 98.1 F 06/19/17 20:40 Pulse Rate 86 06/19/17 20:40 Respiratory Rate 20 06/19/17 20:40 Blood Pressure 139/88 06/19/17 20:40 O2 Sat by Pulse Oximetry (%) 97 06/19/17 20:40 Constitutional: Yes: Anxious Eyes: Yes: EOM Intact HENT: Yes: Normocephalic Neck: Yes: Trachea Midline Cardiovascular: Yes: Tachycardia Respiratory: Yes: Cough, Orthopnea, SOB on Exertion Gastrointestinal: Yes: Normal Bowel Sounds ...Rectal Exam: Yes: Deferred Renal/: Yes: WNL Breast(s): Yes: WNL Musculoskeletal: Yes: Back Pain, Muscle Weakness Extremities: Yes: WNL, Delayed Capillary Refill Edema: Yes Edema: LLE: 1+, RLE: 1+ Neurological: Yes: Alert, Oriented Labs: CBC, BMP 06/19/17 13:00 06/19/17 13:00 Problem List - Problems (1) Diabetes 1.5, managed as type 2 Code(s): E10.9 - TYPE 1 DIABETES MELLITUS WITHOUT COMPLICATIONS (2) Shortness of breath Code(s): R06.02 - SHORTNESS OF BREATH (3) Atypical chest pain Code(s): R07.89 - OTHER CHEST PAIN (4) Chest pain Code(s): R07.9 - CHEST PAIN, UNSPECIFIED (5) Constipation Code(s): K59.00 - CONSTIPATION, UNSPECIFIED (6) Cough Code(s): R05 - COUGH Assessment/Plan Current Active Problems Anemia (Acute) Diabetes 1.5, managed as type 2 (Acute) Shortness of breath (Acute) diabetes mellitus hyperglycemia morbid obesity chf Abnormal Lab Results 06/19/17 06/19/17 06/19/17 13:00 13:00 13:00 RBC 2.49 L D Hgb 6.4 L* D Hct 20.5 L D MCHC 31.3 L RDW 18.4 H D Potassium 5.2 H BUN 24 H Random Glucose 244 H Calcium 8.3 L Troponin I 0.06 H B-Natriuretic Peptide Albumin 2.8 L Urine Protein Urine Glucose (UA) Crossmatch See Detail 06/19/17 06/19/17 13:18 20:00 RBC Hgb Hct MCHC RDW Potassium BUN Random Glucose Calcium Troponin I B-Natriuretic Peptide 1584.96 H Albumin Urine Protein 2+ H Urine Glucose (UA) 1+ H Crossmatch Laboratory Results - last 24 hr 06/19/17 06/19/17 06/19/17 13:00 13:00 13:00 WBC 7.7 D RBC 2.49 L D Hgb 6.4 L* D Hct 20.5 L D MCV 82.4 MCH 25.8 MCHC 31.3 L RDW 18.4 H D Plt Count 256 MPV 10.3 Neutrophils % 76.8 Lymphocytes % 13.2 D Monocytes % 6.8 Eosinophils % 2.1 D Basophils % 1.1 D Sodium 139 Potassium 5.2 H Chloride 102 Carbon Dioxide 29 Anion Gap 8 BUN 24 H Creatinine 1.0 Creat Clearance w eGFR 55.30 Random Glucose 244 H Calcium 8.3 L Total Bilirubin 0.3 D AST 15 ALT 22 Alkaline Phosphatase 89 Creatine Kinase 49 Troponin I 0.06 H B-Natriuretic Peptide Total Protein 6.6 Albumin 2.8 L Urine Color Urine Appearance Urine pH Ur Specific [place] Urine Protein Urine Glucose (UA) Urine Ketones Urine Blood Urine Nitrite Urine Bilirubin Urine Urobilinogen Ur Leukocyte Esterase Urine WBC (Auto) Urine RBC (Auto) Ur Epithelial Cells Urine Bacteria Blood Type O POSITIVE Antibody Screen Negative Crossmatch See Detail 06/19/17 06/19/17 06/19/17 13:18 18:50 20:00 WBC RBC Hgb Hct MCV MCH MCHC RDW Plt Count MPV Neutrophils % Lymphocytes % Monocytes % Eosinophils % Basophils % Sodium Potassium Chloride Carbon Dioxide Anion Gap BUN Creatinine Creat Clearance w eGFR Random Glucose Calcium Total Bilirubin AST ALT Alkaline Phosphatase Creatine Kinase 42 Troponin I 0.04 B-Natriuretic Peptide Total Protein Albumin Urine Color Ltyellow Urine Appearance Clear Urine pH 7.0 D Ur Specific [place] 1.010 Urine Protein 2+ H Urine Glucose (UA) 1+ H Urine Ketones Negative Urine Blood Negative Urine Nitrite Negative Urine Bilirubin Negative Urine Urobilinogen Negative Ur Leukocyte Esterase Negative Urine WBC (Auto) 2-5 Urine RBC (Auto) 0-2 Ur Epithelial Cells Few Urine Bacteria Rare Blood Type O POSITIVE Antibody Screen Crossmatch 06/19/17 20:00 WBC RBC Hgb Hct MCV MCH MCHC RDW Plt Count MPV Neutrophils % Lymphocytes % Monocytes % Eosinophils % Basophils % Sodium Potassium Chloride Carbon Dioxide Anion Gap BUN Creatinine Creat Clearance w eGFR Random Glucose Calcium Total Bilirubin AST ALT Alkaline Phosphatase Creatine Kinase Troponin I B-Natriuretic Peptide 1584.96 H Total Protein Albumin Urine Color Urine Appearance Urine pH Ur Specific [place] Urine Protein Urine Glucose (UA) Urine Ketones Urine Blood Urine Nitrite Urine Bilirubin Urine Urobilinogen Ur Leukocyte Esterase Urine WBC (Auto) Urine RBC (Auto) Ur Epithelial Cells Urine Bacteria Blood Type Antibody Screen Crossmatch ) plan: blood type and transfuse for hb below [address] ne[address] therapy [address] chest bgm qid novolog insulin levemir 20 units bid gi consult
[2017-06-19 23:38] VITALS: BMI 50.5
[2017-06-19] MEDS: ATORVASTATIN CA 40 MG TABLET (FP) PO SCH (23:59)
[2017-06-20] MEDS: ACETAMINOPHEN 325 MG TABLET (FP) PO PRN (00:25)
[2017-06-20] MEDS: PANTOPRAZOLE SODIUM 160 MG in DEXTROSE 5%-WATER - 290 ML IVPB SCH ×2 (00:25→21:58)
[2017-06-20] MEDS ORDERED: FUROSEMIDE 40 MG TABLET (FP) PO ONE (00:30)
[2017-06-20] MEDS: INSULIN SLIDING SCALE (NOVOLOG) 1 VIAL SQ SCH ×4 (06:44→21:58)
[2017-06-20 07:18] LABS: BASO % 0.5 % (0-2.0); EOS % 2.7 % (0-4.5); HEMATOCRIT 24.3 % (32.4-45.2); LYMPH % 14.4 % (8-40); MCH 27.1 pg (25.7-33.7); MCHC 32.9 g/dl (32.0-36.0); MEAN CELL VOLUME 82.3 fl (80-96); MEAN PLT VOLUME 10.2 fl (7.5-11.1); MONO % 8.8 % (3.8-10.2); NEUT % 73.6 % (42.8-82.8); PLATELET COUNT 259 K/MM3 (134-434); RBC 2.95 M/mm3 (3.60-5.2); RDW 16.6 % (11.6-15.6); WHITE BLOOD COUNT 6.9 K/mm3 (4.0-10.0)
[2017-06-20 07:44] LABS: ALBUMIN 2.8 g/dl (3.4-5.0); ANION GAP 6 (8-16); BLOOD UREA NITROGEN 21 mg/dL (7-18); CALCIUM 8.3 mg/dL (8.5-10.1); CHLORIDE 102 mmol/L (98-107); CO2 30 mmol/L (21-32); GLUCOSE,RANDOM 233 mg/dL (74-106); POTASSIUM 4.4 mmol/L (3.5-5.1); SODIUM 138 mmol/L (136-145)
[2017-06-20 07:53] LABS: ALK PHOS 90 U/L (45-117); BILIRUBIN,TOTAL 1.1 mg/dL (0.2-1.0); CHOLESTEROL 111 mg/dL (50-200); CREATININE 0.9 mg/dL (0.55-1.02); HDL CHOLESTEROL 39 mg/dL (40-60); LDL CHOLESTEROL (ONLY SJRH) 58 mg/dL (5-100); SGOT/AST 7 U/L (15-37); SGPT/ALT 20 U/L (12-78); TOT PROT 6.3 g/dl (6.4-8.2); TRIGLYCERIDES 133 mg/dL (35-160)
--- NOTE | 2017-06-20 08:20 | HP ---
Admitting History and Physical - Admission History of Present Illness: 66-year-old female has been having some shortness of breath and chest pain for several days. She's been having this chest pain on and off as well as some shortness of breath. She does appear to be pallor. She is not having excessive respiratory distress. Denies any fever. patient was seen here about 2 months ago for an episode of chest pain and was transferred out to [facility] under the supervisor dental laboratory Dr. De La Torre who had placed 2 cardiac stents in her LAD. She has not followed up with any physician. - Past Medical History Cardiovascular: Yes: CAD (S/P STENTING), HTN, Hyperlipdemia Pulmonary: Yes: Asthma, Sleep Apnea Gastrointestinal: Yes: GERD ...: No Musculoskeletal: Yes: Osteoarthritis Endocrine: Yes: Diabetes Mellitus - Smoking History Smoking history: Never smoked Have you smoked in the past 12 months: No Aproximately how many cigarettes per day: 0 - Alcohol/Substance Use Hx Alcohol Use: No Home Medications - Allergies Allergies/Adverse Reactions: Allergies Allergy/AdvReac Type Severity Reaction Status Date / Time Penicillins Allergy Difficulty Verified 06/19/17 10:48 Breathing - Home Medications Home Medications: Ambulatory Orders Aspirin [ASA -] 81 mg PO DAILY 08/02/12 Mometasone Furoate [Asmanex 220Mcg -] 2 inh IH DAILY PRN 08/02/12 Atorvastatin Ca [Lipitor] 40 mg PO HS #30 tablet 01/02/15 Insulin (Levemir) [Levemir Flexpen -] 30 units SQ DAILY@0700 07/03/16 Insulin Lispro Protamin/Lispro [Humalog Mix 50-50 Vial] 15 unit SQ BID 07/03/16 Clopidogrel Bisulfate [Plavix -] 75 mg PO DAILY 06/19/17 Metoprolol Succinate [Toprol Xl] 25 mg PO DAILY 06/19/17 Review of Systems - Review of Systems Cardiovascular: reports: Chest Pain Respiratory: reports: SOB, SOB on Exertion Gastrointestinal: denies: Abdominal Pain, Constipation, Melena, Rectal Bleeding Physical Examination Vital Signs: Vital Signs Temperature 98.8 F 06/20/17 05:48 Pulse Rate 87 06/20/17 05:48 Respiratory Rate 22 06/20/17 05:48 Blood Pressure 141/75 06/20/17 05:48 O2 Sat by Pulse Oximetry (%) 98 06/19/17 23:28 Cardiovascular: Yes: Regular Rate and Rhythm Respiratory: Yes: Regular, CTA Bilaterally Gastrointestinal: Yes: Normal Bowel Sounds, Soft Labs: CBC, BMP 06/20/17 06:57 06/20/17 06:57 Problem List - Problems (1) GI bleed Assessment/Plan: TRANSFUSE GI CONSULT HEMOOCOULT PPI Code(s): K92.2 - GASTROINTESTINAL HEMORRHAGE, UNSPECIFIED (2) CAD (coronary artery disease) Assessment/Plan: HOLD OFF ON ASA AND PLAVIX Code(s): I25.10 - ATHSCL HEART DISEASE OF [place] CORONARY ARTERY W/O ANG PCTRS (3) Anemia Assessment/Plan: ABOVE Code(s): D64.9 - ANEMIA, UNSPECIFIED Qualifiers: Anemia type: other cause (4) Chest pain Assessment/Plan: FOLLOW CE CARDIO Code(s): R07.9 - CHEST PAIN, UNSPECIFIED (5) Diabetes mellitus, insulin dependent (IDDM), uncontrolled Assessment/Plan: BGM IMSULIN ENDO Code(s): E10.65 - TYPE 1 DIABETES MELLITUS WITH HYPERGLYCEMIA Qualifiers: Chronic kidney disease stage: unspecified stage
[2017-06-20] MEDS ORDERED: FUROSEMIDE 40 MG/4 ML INJECTABLE VIAL IVPUSH ONE ×2 (08:45→19:45)
[2017-06-20] MEDS ORDERED: PT OWN MED DRAWER 7, Y5N ONE (08:53)
[2017-06-20] MEDS: metoPROLOL SUCCINATE 25 MG TAB.SR.24H (FP) PO SCH (09:01)
[2017-06-20] MEDS: INSULIN DETEMIR 100 UNITS/ML MDV SQ SCH ×2 (09:01→21:58)
[2017-06-20] MEDS: FUROSEMIDE 40 MG TABLET (FP) PO SCH (09:32)
[2017-06-20] MEDS ORDERED: INSULIN (NOVOLOG) ASPART 100 UNITS/ML 10ML VIAL ONE ×2 (12:19→21:05)
--- NOTE | 2017-06-20 13:45 | CON.CARD ---
Consult Consult Specialty:: Cardiology Referred by:: Rigo Payne Reason for Consultation:: SOB/chest pressure - History of Present Illness Chief Complaint: SOB History of Present Illness: 66 year old female with a pmhx of htn, dm, asthma, hld, cad s/p cardiac cath 05/02/17 RADU to [facility] who presents with sob and chest pain for several days. Denies any n/v/d. No pnd, orthopnea, or edema. Gets sob with minimal exertion. Noted to have Hgb 6.4. Transfused and feels better and asymptomatic ambulating in room with no complaints. Echocardiogram 02/21/17: nl lvef, mod mr, fcoav, mild TR, EKG: sinus rhythm with lateral TWI unchanged from prior - History Source History Provided By: Patient, Medical Record - Past Medical History Cardio/Vascular: Yes: CAD (S/P STENTING), HTN, Hyperlipdemia Pulmonary: Yes: Asthma, Sleep Apnea Gastrointestinal: Yes: GERD ...: No Musculoskeletal: Yes: Osteoarthritis Endocrine: Yes: Diabetes Mellitus - Alcohol/Substance Use Hx Alcohol Use: No - Smoking History Smoking history: Never smoked Have you smoked in the past 12 months: No Aproximately how many cigarettes per day: 0 Home Medications - Allergies Allergies/Adverse Reactions: Allergies Allergy/AdvReac Type Severity Reaction Status Date / Time Penicillins Allergy Difficulty Verified 06/19/17 10:48 Breathing - Home Medications Home Medications: Ambulatory Orders Aspirin [ASA -] 81 mg PO DAILY 08/02/12 Mometasone Furoate [Asmanex 220Mcg -] 2 inh IH DAILY PRN 08/02/12 Atorvastatin Ca [Lipitor] 40 mg PO HS #30 tablet 01/02/15 Insulin (Levemir) [Levemir Flexpen -] 30 units SQ DAILY@0700 07/03/16 Insulin Lispro Protamin/Lispro [Humalog Mix 50-50 Vial] 15 unit SQ BID 07/03/16 Clopidogrel Bisulfate [Plavix -] 75 mg PO DAILY 06/19/17 Metoprolol Succinate [Toprol Xl] 25 mg PO DAILY 06/19/17 Vital Signs: Vital Signs Temperature 98.8 F 06/20/17 05:48 Pulse Rate 87 06/20/17 05:48 Respiratory Rate 22 06/20/17 05:48 Blood Pressure 141/75 06/20/17 05:48 O2 Sat by Pulse Oximetry (%) 98 06/19/17 23:28 Constitutional: Yes: No Distress Neck: Yes: Supple Respiratory: Yes: CTA Bilaterally Gastrointestinal: Yes: Soft Cardiovascular: Yes: Regular Rate and Rhythm JVD: No Carotid Bruit: No PMI: Non-Displaced Heart Sounds: Yes: S1, S2 Murmur: No: Systolic Murmur Edema: No - Other Data Labs, Other Data: CBC, BMP 06/20/17 06:57 06/20/17 06:57 Troponin, BNP 06/19/17 06/19/17 06/19/17 13:00 20:00 20:00 Troponin I 0.06 H 0.04 B-Natriuretic Peptide 1584.96 H 06/20/17 06:57 Troponin I 0.04 B-Natriuretic Peptide Troponin, BNP 06/19/17 06/19/17 06/19/17 13:00 20:00 20:00 Troponin I 0.06 H 0.04 B-Natriuretic Peptide 1584.96 H 06/20/17 06:57 Troponin I 0.04 B-Natriuretic Peptide Imaging - Results Chest X-ray: Report Reviewed EKG: Image Reviewed Problem List - Problems (1) CAD (coronary artery disease) Code(s): I25.10 - ATHSCL HEART DISEASE OF [place] CORONARY ARTERY W/O ANG PCTRS Assessment/Plan 66 year old female with a pmhx of htn, dm, asthma, hld, cad s/p cardiac cath 05/02 RADU to [facility] who presents with sob and chest pain for several days. Denies any n/v/d. No pnd, orthopnea, or edema. Gets sob with minimal exertion. Noted to have Hgb 6.4. Transfused and feels better and asymptomatic ambulating in room with no complaints. Echocardiogram 02/21/17: nl lvef, mod mr, fcoav, mild TR, EKG: sinus rhythm with lateral TWI unchanged from prior 1)CAD -chest pain and sob likely due to severe anemia Monitoring on tele Had stent to LAD 05/02/17 so should stay on aspirin and plavix or risk of stent thrombosis to LAD resulting in anterior infarct Continue statin Metoprolol if bp tolerates Anemia work up as per primary team
--- NOTE | 2017-06-20 16:55 | EKG ---
Test Reason : Blood Pressure : / mmHG Vent. Rate : 072 BPM Atrial Rate : 072 BPM P-R Int : 176 ms QRS Dur : 110 ms QT Int : 412 ms P-R-T Axes : 048 -37 100 degrees QTc Int : 451 ms NORMAL SINUS RHYTHM LEFT AXIS DEVIATION T WAVE ABNORMALITY, CONSIDER LATERAL ISCHEMIA ABNORMAL ECG WHEN COMPARED WITH ECG OF 19-JUN-2017 20:10, NO SIGNIFICANT CHANGE WAS FOUND Confirmed by MD Herlinda, Jose ([id number]) on 06/20/2017 4:55:46 PM Referred By: Татьяна WALLER Confirmed By:Jose Pate MD
--- NOTE | 2017-06-20 20:57 | CON.GI ---
Consult Consult Specialty:: GI Referred by:: Dr Payne Reason for Consultation:: anemia - History of Present Illness History of Present Illness: 66 y/o obese female was asked to be seen because of anemia. She was admitted with SOB and chest pian, SHe denies nausea, vomiting and abdominal pain. She was suppose to undergo gi evaluation but because of underlying co morbidities including sleep apnea, this was place on hold. - Past Medical History Cardio/Vascular: Yes: CAD (S/P STENTING), HTN, Hyperlipdemia Pulmonary: Yes: Asthma, Sleep Apnea Gastrointestinal: Yes: GERD ...: No Musculoskeletal: Yes: Osteoarthritis Endocrine: Yes: Diabetes Mellitus - Alcohol/Substance Use Hx Alcohol Use: No - Smoking History Smoking history: Never smoked Have you smoked in the past 12 months: No Aproximately how many cigarettes per day: 0 Home Medications - Allergies Allergies/Adverse Reactions: Allergies Allergy/AdvReac Type Severity Reaction Status Date / Time Penicillins Allergy Difficulty Verified 06/19/17 10:48 Breathing - Home Medications Home Medications: Ambulatory Orders Aspirin [ASA -] 81 mg PO DAILY 08/02/12 Mometasone Furoate [Asmanex 220Mcg -] 2 inh IH DAILY PRN 08/02/12 Atorvastatin Ca [Lipitor] 40 mg PO HS #30 tablet 01/02/15 Insulin (Levemir) [Levemir Flexpen -] 30 units SQ DAILY@0700 07/03/16 Insulin Lispro Protamin/Lispro [Humalog Mix 50-50 Vial] 15 unit SQ BID 07/03/16 Clopidogrel Bisulfate [Plavix -] 75 mg PO DAILY 06/19/17 Metoprolol Succinate [Toprol Xl] 25 mg PO DAILY 06/19/17 Physical Exam-GI Vital Signs: Vital Signs Temperature 98.7 F 06/20/17 20:41 Pulse Rate 74 06/20/17 20:41 Respiratory Rate 20 06/20/17 20:41 Blood Pressure 145/67 06/20/17 20:41 O2 Sat by Pulse Oximetry (%) 97 06/20/17 10:00 Constitutional: Yes: Mild Distress, Obese Eyes: Yes: Conjunctiva Clear HENT: Yes: Atraumatic Neck: Yes: Supple Cardiovascular: Yes: Regular Rate and Rhythm Respiratory: Yes: Diminished ...Palpate: Yes: Soft. No: Firm/Rigid, Guarding, Hepatomegaly, Mass, Pulsatile Mass, Splenomegaly, Tenderness Labs: CBC, BMP 06/20/17 06:57 06/20/17 06:57 Problem List - Problems (1) Anemia Assessment/Plan: oocult gi bleeding R> will need gi w/u once medically cleared even as an outpatient. At this time she is high risk for any gi procedures Code(s): D64.9 - ANEMIA, UNSPECIFIED Qualifiers: Anemia type: other cause
[2017-06-20] MEDS: ATORVASTATIN CA 40 MG TABLET (FP) PO SCH (21:58)
[2017-06-20] MEDS ORDERED: MAG HYDROX/AL HYDROX/SIMETH -MYLANTA- ORAL SUSPENSION PO ONE (22:15)
[2017-06-20] MEDS ORDERED: MAG HYDROX/AL HYDROX/SIMETH 30 ML UNIT-DOSE CUP PO ONE (22:30)
[2017-06-21] MEDS ORDERED: FUROSEMIDE 40 MG/4 ML INJECTABLE VIAL ONE (00:48)
--- NOTE | 2017-06-21 00:59 | PN ---
Progress Note, Physician Chief Complaint: short of breath in bed History of Present Illness: dm,morbid obesity,chf,ashd,cad,htn,hyperglycemia - Current Medication List Current Medications: Active Medications Acetaminophen (Tylenol -) 650 mg PO Q4H PRN PRN Reason: PAIN LEVEL 1-5 Last Admin: 06/20/17 00:25 Dose: 650 mg Albuterol Sulfate (Ventolin 0.083% Nebulizer Soln -) 1 amp NEB Q6H PRN PRN Reason: SHORT OF BREATH/WHEEZING Last Admin: 06/20/17 22:15 Dose: 1 amp Atorvastatin Calcium (Lipitor -) 40 mg PO HS [facility] Last Admin: 06/20/17 21:58 Dose: 40 mg Furosemide (Lasix -) 40 mg PO DAILY [facility] Last Admin: 06/20/17 09:32 Dose: Not Given Pantoprazole Sodium 160 mg/ (Dextrose) 290 mls @ 14.5 mls/hr IVPB Q20H [facility] Last Admin: 06/20/17 21:58 Dose: 14.5 mls/hr Insulin Aspart (Novolog Vial Sliding Scale -) 1 vial SQ ACHS [facility] PRN Reason: Protocol Insulin Detemir (Levemir Vial) 35 units SQ BID [facility] Metoprolol Succinate (Toprol Xl -) 25 mg PO DAILY [facility] Last Admin: 06/20/17 09:01 Dose: 25 mg Mometasone Furoate (Asmanex 220mcg -) 2 puff IH DAILY PRN PRN Reason: ASTHMA - Objective Vital Signs: Vital Signs Temperature 98.7 F 06/20/17 20:41 Pulse Rate 74 06/20/17 20:41 Respiratory Rate 20 06/20/17 20:41 Blood Pressure 145/67 06/20/17 20:41 O2 Sat by Pulse Oximetry (%) 97 06/20/17 10:00 Constitutional: Yes: Anxious Eyes: Yes: EOM Intact HENT: Yes: Normocephalic Neck: Yes: Trachea Midline Cardiovascular: Yes: Tachycardia Respiratory: Yes: On Nasal O2, Tachypnea Gastrointestinal: Yes: Abdomen, Obese ...Rectal Exam: Yes: Deferred Genitourinary: Yes: WNL Breast(s): Yes: WNL Musculoskeletal: Yes: Back Pain, Muscle Weakness Extremities: Yes: WNL Neurological: Yes: Alert, Oriented Labs: CBC, BMP 06/20/17 06:57 06/20/17 06:57 Problem List - Problems (1) Diabetes 1.5, managed as type 2 Code(s): E10.9 - TYPE 1 DIABETES MELLITUS WITHOUT COMPLICATIONS (2) Shortness of breath Code(s): R06.02 - SHORTNESS OF BREATH (3) Atypical chest pain Code(s): R07.89 - OTHER CHEST PAIN (4) Chest pain Code(s): R07.9 - CHEST PAIN, UNSPECIFIED (5) Constipation Code(s): K59.00 - CONSTIPATION, UNSPECIFIED (6) Cough Code(s): R05 - COUGH Assessment/Plan Current Active Problems Anemia (Acute) CAD (coronary artery disease) (Acute) Diabetes 1.5, managed as type 2 (Acute) GI bleed (Acute) Shortness of breath (Acute) Abnormal Lab Results 06/19/17 06/20/17 06/20/17 13:00 06:57 06:57 RBC 2.95 L Hgb 8.0 L D Hct 24.3 L D RDW 16.6 H Anion Gap 6 L BUN 21 H Random Glucose 233 H Calcium 8.3 L Total Bilirubin 1.1 H D AST 7 L Total Protein 6.3 L Albumin 2.8 L HDL Cholesterol 39 L Crossmatch See Detail Laboratory Results - last 24 hr 06/19/17 06/19/17 06/20/17 13:00 22:13 05:40 WBC RBC Hgb Hct MCV MCH MCHC RDW Plt Count MPV Neutrophils % Lymphocytes % Monocytes % Eosinophils % Basophils % Sodium Potassium Chloride Carbon Dioxide Anion Gap BUN Creatinine Creat Clearance w eGFR POC Glucometer [phone] Random Glucose Calcium Total Bilirubin AST ALT Alkaline Phosphatase Creatine Kinase Troponin I Total Protein Albumin Triglycerides Cholesterol Total LDL Cholesterol HDL Cholesterol TSH Free T4 Blood Type O POSITIVE Antibody Screen Negative Crossmatch See Detail 06/20/17 06/20/17 06/20/17 06:57 06:57 06:57 WBC 6.9 RBC 2.95 L Hgb 8.0 L D Hct 24.3 L D MCV 82.3 MCH 27.1 MCHC 32.9 RDW 16.6 H Plt Count 259 MPV 10.2 Neutrophils % 73.6 Lymphocytes % 14.4 Monocytes % 8.8 Eosinophils % 2.7 Basophils % 0.5 Sodium 138 Potassium 4.4 Chloride 102 Carbon Dioxide 30 Anion Gap 6 L BUN 21 H Creatinine 0.9 Creat Clearance w eGFR > 60 POC Glucometer Random Glucose 233 H Calcium 8.3 L Total Bilirubin 1.1 H D AST 7 L ALT 20 Alkaline Phosphatase 90 Creatine Kinase 41 Troponin I 0.04 Total Protein 6.3 L Albumin 2.8 L Triglycerides 133 Cholesterol 111 Total LDL Cholesterol 58 HDL Cholesterol 39 L TSH 1.11 Free T4 1.29 Blood Type Antibody Screen Crossmatch 06/20/17 06/20/17 06/20/17 12:05 16:05 21:53 WBC RBC Hgb Hct MCV MCH MCHC RDW Plt Count MPV Neutrophils % Lymphocytes % Monocytes % Eosinophils % Basophils % Sodium Potassium Chloride Carbon Dioxide Anion Gap BUN Creatinine Creat Clearance w eGFR POC Glucometer 246 257 211 Random Glucose Calcium Total Bilirubin AST ALT Alkaline Phosphatase Creatine Kinase Troponin I Total Protein Albumin Triglycerides Cholesterol Total LDL Cholesterol HDL Cholesterol TSH Free T4 Blood Type Antibody Screen Crossmatch plan: bgm qid novolog levemir 35 units bid titrate as needed doses
[2017-06-21] MEDS: INSULIN DETEMIR 100 UNITS/ML MDV SQ SCH ×2 (06:31→21:30)
[2017-06-21] MEDS: INSULIN SLIDING SCALE (NOVOLOG) 1 VIAL SQ SCH ×4 (06:32→21:31)
[2017-06-21 08:32] LABS: BASO % 1.1 % (0-2.0); EOS % 2.9 % (0-4.5); HEMATOCRIT 33.1 % (32.4-45.2); LYMPH % 13.3 % (8-40); MCH 27.7 pg (25.7-33.7); MCHC 33.1 g/dl (32.0-36.0); MEAN CELL VOLUME 83.5 fl (80-96); MEAN PLT VOLUME 9.9 fl (7.5-11.1); MONO % 8.3 % (3.8-10.2); NEUT % 74.4 % (42.8-82.8); PLATELET COUNT 261 K/MM3 (134-434); RBC 3.96 M/mm3 (3.60-5.2); RDW 16.4 % (11.6-15.6); WHITE BLOOD COUNT 8.2 K/mm3 (4.0-10.0)
--- NOTE | 2017-06-21 09:34 | PN ---
Progress Note, Physician Chief Complaint: No chest pain or sob No events on tele History of Present Illness: 66 year old female with a pmhx of htn, dm, asthma, hld, cad s/p cardiac cath 05/02/17 RADU to [facility] who presents with sob and chest pain for several days. Denies any n/v/d. No pnd, orthopnea, or edema. Gets sob with minimal exertion. Noted to have Hgb 6.4. Transfused and feels better and asymptomatic ambulating in room with no complaints. Echocardiogram 02/21/17: nl lvef, mod mr, fcoav, mild TR, EKG: sinus rhythm with lateral TWI unchanged from prior - Current Medication List Current Medications: Active Medications Acetaminophen (Tylenol -) 650 mg PO Q4H PRN PRN Reason: PAIN LEVEL 1-5 Last Admin: 06/20/17 00:25 Dose: 650 mg Albuterol Sulfate (Ventolin 0.083% Nebulizer Soln -) 1 amp NEB Q6H PRN PRN Reason: SHORT OF BREATH/WHEEZING Last Admin: 06/20/17 22:15 Dose: 1 amp Atorvastatin Calcium (Lipitor -) 40 mg PO HS [facility] Last Admin: 06/20/17 21:58 Dose: 40 mg Furosemide (Lasix -) 40 mg PO DAILY [facility] Last Admin: 06/20/17 09:32 Dose: Not Given Pantoprazole Sodium 160 mg/ (Dextrose) 290 mls @ 14.5 mls/hr IVPB Q20H [facility] Last Admin: 06/20/17 21:58 Dose: 14.5 mls/hr Insulin Aspart (Novolog Vial Sliding Scale -) 1 vial SQ ACHS [facility] PRN Reason: Protocol Last Admin: 06/21/17 06:32 Dose: 7 units Insulin Detemir (Levemir Vial) 35 units SQ BID@0700,2200 [facility] Last Admin: 06/21/17 06:31 Dose: 35 units Metoprolol Succinate (Toprol Xl -) 25 mg PO DAILY [facility] Last Admin: 06/20/17 09:01 Dose: 25 mg Mometasone Furoate (Asmanex 220mcg -) 2 puff IH DAILY PRN PRN Reason: ASTHMA - Objective Vital Signs: Vital Signs Temperature 98.1 F 06/21/17 05:00 Pulse Rate 68 06/21/17 05:00 Respiratory Rate 20 06/21/17 05:00 Blood Pressure 136/55 06/21/17 05:00 O2 Sat by Pulse Oximetry (%) 94 L 06/20/17 21:00 Constitutional: Yes: No Distress Neck: Yes: Supple Cardiovascular: Yes: Regular Rate and Rhythm, S1, S2. No: JVD, Murmur Respiratory: Yes: CTA Bilaterally Gastrointestinal: Yes: Soft Edema: No Labs: CBC, BMP 06/21/17 08:00 06/20/17 06:57 Problem List - Problems (1) CAD (coronary artery disease) Code(s): I25.10 - ATHSCL HEART DISEASE OF [place] CORONARY ARTERY W/O ANG PCTRS Assessment/Plan 66 year old female with a pmhx of htn, dm, asthma, hld, cad s/p cardiac cath 05/02 RADU to [facility] who presents with sob and chest pain for several days. Denies any n/v/d. No pnd, orthopnea, or edema. Gets sob with minimal exertion. Noted to have Hgb 6.4. Transfused and feels better and asymptomatic ambulating in room with no complaints. Echocardiogram 02/21/17: nl lvef, mod mr, fcoav, mild TR, EKG: sinus rhythm with lateral TWI unchanged from prior 1)CAD -chest pain and sob likely due to severe anemia. Symptoms have improved with improvement in h/h with transfusion. No acute changes on ekg. Had stent to LAD 05/02/17 so should stay on aspirin and plavix or risk of stent thrombosis to LAD resulting in anterior infarct Continue statin Metoprolol if bp tolerates Anemia work up as per primary team
[2017-06-21] MEDS: metoPROLOL SUCCINATE 25 MG TAB.SR.24H (FP) PO SCH (09:51)
--- NOTE | 2017-06-21 11:27 | PN ---
Progress Note, Physician Chief Complaint: AWAKE ALERT FEELING BETTER AFTER TRANSFUSIONS ON 02 CT SCAN NOW DRINKING CONTRAST - Current Medication List Current Medications: Active Medications Acetaminophen (Tylenol -) 650 mg PO Q4H PRN PRN Reason: PAIN LEVEL 1-5 Last Admin: 06/20/17 00:25 Dose: 650 mg Albuterol Sulfate (Ventolin 0.083% Nebulizer Soln -) 1 amp NEB Q6H PRN PRN Reason: SHORT OF BREATH/WHEEZING Last Admin: 06/20/17 22:15 Dose: 1 amp Atorvastatin Calcium (Lipitor -) 40 mg PO HS [facility] Last Admin: 06/20/17 21:58 Dose: 40 mg Furosemide (Lasix -) 40 mg PO DAILY [facility] Last Admin: 06/20/17 09:32 Dose: Not Given Pantoprazole Sodium 160 mg/ (Dextrose) 290 mls @ 14.5 mls/hr IVPB Q20H [facility] Last Admin: 06/20/17 21:58 Dose: 14.5 mls/hr Insulin Aspart (Novolog Vial Sliding Scale -) 1 vial SQ ACHS [facility] PRN Reason: Protocol Last Admin: 06/21/17 06:32 Dose: 7 units Insulin Detemir (Levemir Vial) 35 units SQ BID@0700,2200 [facility] Last Admin: 06/21/17 06:31 Dose: 35 units Metoprolol Succinate (Toprol Xl -) 25 mg PO DAILY [facility] Last Admin: 06/21/17 09:51 Dose: 25 mg Mometasone Furoate (Asmanex 220mcg -) 2 puff IH DAILY PRN PRN Reason: ASTHMA - Objective Vital Signs: Vital Signs Temperature 97.8 F 06/21/17 09:00 Pulse Rate 79 06/21/17 09:00 Respiratory Rate 20 06/21/17 09:00 Blood Pressure 143/64 06/21/17 09:00 O2 Sat by Pulse Oximetry (%) 94 L 06/20/17 21:00 Constitutional: Yes: Mild Distress Eyes: Yes: WNL HENT: Yes: WNL Neck: Yes: WNL Cardiovascular: Yes: WNL Respiratory: Yes: On Nasal O2, Other Gastrointestinal: Yes: WNL Genitourinary: Yes: WNL Musculoskeletal: Yes: WNL Extremities: Yes: WNL Edema: Yes Peripheral Pulses WNL: Yes Integumentary: Yes: WNL Wound/Incision: Yes: Clean/Dry Neurological: Yes: WNL ...Motor Strength: WNL Psychiatric: Yes: WNL Labs: CBC, BMP 06/21/17 08:00 06/20/17 06:57 Problem List - Problems (1) Anemia Code(s): D64.9 - ANEMIA, UNSPECIFIED Qualifiers: Anemia type: other cause (2) CAD (coronary artery disease) Code(s): I25.10 - ATHSCL HEART DISEASE OF [place] CORONARY ARTERY W/O ANG PCTRS (3) Diabetes 1.5, managed as type 2 Code(s): E10.9 - TYPE 1 DIABETES MELLITUS WITHOUT COMPLICATIONS (4) GI bleed Code(s): K92.2 - GASTROINTESTINAL HEMORRHAGE, UNSPECIFIED (5) Shortness of breath Code(s): R06.02 - SHORTNESS OF BREATH (6) HORACE (acute kidney injury) Code(s): N17.9 - ACUTE KIDNEY FAILURE, UNSPECIFIED (7) Acute hypoxemic respiratory failure Code(s): J96.01 - ACUTE RESPIRATORY FAILURE WITH HYPOXIA (8) Atypical chest pain Code(s): R07.89 - OTHER CHEST PAIN (9) Hypertension Code(s): I10 - ESSENTIAL (PRIMARY) HYPERTENSION (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 Code(s): E11.610 - TYPE 2 DIABETES MELLITUS W DIABETIC NEUROPATHIC ARTHROPATHY (11) Type 2 diabetes mellitus with other diabetic arthropathy Code(s): E11.618 - TYPE 2 DIABETES MELLITUS WITH OTHER DIABETIC ARTHROPATHY Assessment/Plan TRANSFUSED PRBC ANEMIA IMPROVED CT CHEST ABD NOW GI BLEED WORKUP IN PROGRESS 02 SUPPORT MONITOR BGM OOB TO CHAIR
[2017-06-21] MEDS: PANTOPRAZOLE SODIUM 160 MG in DEXTROSE 5%-WATER - 290 ML IVPB SCH (11:30)
--- NOTE | 2017-06-21 13:24 | PN ---
Progress Note (short form) - Note Progress Note: PULMONARY CONSULTATION DICTATED 06/21/17 IMP SYMPTOMATIC ANEMIA DYSPNEA SECONDARY TO ANEMIA CP SECONDARY TO ANEMIA ASHD S/P RADU ASTHMA NOT IN EXACERBATION CHF HLD HTN TERENCE DM MORBID OBESITY PLAN TRANSFUSE NEEDED O2 MONITOR H+H INHALED BRONCHODILATORS LASIX PO GI W/U BIPAP AT NIGHT DR MANN Problem List - Problems (1) Anemia Code(s): D64.9 - ANEMIA, UNSPECIFIED Qualifiers: Anemia type: other cause (2) CAD (coronary artery disease) Code(s): I25.10 - ATHSCL HEART DISEASE OF [place] CORONARY ARTERY W/O ANG PCTRS (3) Diabetes 1.5, managed as type 2 Code(s): E10.9 - TYPE 1 DIABETES MELLITUS WITHOUT COMPLICATIONS (4) GI bleed Code(s): K92.2 - GASTROINTESTINAL HEMORRHAGE, UNSPECIFIED (5) Shortness of breath Code(s): R06.02 - SHORTNESS OF BREATH (6) Chest pain Code(s): R07.9 - CHEST PAIN, UNSPECIFIED (7) HLD (hyperlipidemia) Code(s): E78.5 - HYPERLIPIDEMIA, UNSPECIFIED (8) Symptomatic anemia Code(s): D64.9 - ANEMIA, UNSPECIFIED (9) Sleep apnea Code(s): G47.30 - SLEEP APNEA, UNSPECIFIED
--- NOTE | 2017-06-21 14:35 | CONS ---
DATE OF CONSULTATION: 06/21/2017 REFERRING PHYSICIAN: Gwen Jacobson MD HISTORY OF PRESENT ILLNESS: The patient is a 66-year-old white [place] female with a past medical history of ASHD, status post stenting, hypertension, hyperlipidemia, asthma, sleep apnea, and GERD who is a nonsmoker admitted to [facility] on June 20, 2017 with complaint of increasing shortness of breath and chest pain for several days. The patient states that the pain with chest pain is intermittent. She also complains of shortness of breath with ambulation. She denies any fevers, chills, nausea, vomiting or diaphoresis. Although the patient was hospitalized approximately 2 months ago secondary to chest pain she was transferred to [facility] at the time had 2 cardiac stents placed in the LAD. She has not had followup since that time. She denies any history of DVT or PE in the past. On admission she was noted to be markedly anemic with a hemoglobin of 6.4 g. She was subsequently admitted to telemetry and then transfused without complications. The patient denies any history of tobacco use. She denies any history of occupational exposure to chemical fumes. There is no history of recent travel. She was [place] and moved to the [facility] 40 years ago. She denies any orthopnea or PND. PAST MEDICAL HISTORY: Again includes ASHD, status post stents, hypertension, diabetes, hyperlipidemia, obstructive sleep apnea, asthma, and GERD. REVIEW OF SYSTEMS: Positive dyspnea, positive chest pain. No fever, no chills, no hemoptysis, no abdominal pain. Positive for mild lower extremity edema. MEDICATIONS: Medications prior to admission include aspirin, Asmanex, Lipitor, Levemir, Humalog, Plavix, and Toprol. CURRENT MEDICATIONS: Include albuterol, Asmanex, Tylenol, metoprolol, Lipitor, NovoLog, Levemir, Lasix, and pantoprazole. PHYSICAL EXAMINATION: General: The patient is a well-developed, well-nourished female, awake, alert, in no acute distress sitting up in a wheelchair. Vital signs: She is currently afebrile. Blood pressure 143/64, respiratory rate is 20, and oxygen saturation is 97% on 2 L. HEENT: Head is normocephalic, atraumatic. Neck: Supple. Heart: Regular, S1 and S2. Chest: Diminished breath sounds bilaterally. Abdomen: Soft, bowel sounds are positive. Extremities: Trace lower extremity edema. LABORATORY DATA: WBC on admission is 7.7, hemoglobin 6.4, hematocrit 24.5, and a platelet count of 256,000. Most recent white count 8.2 with a hemoglobin of 11, hematocrit 33.1, and platelet count of 261,000: Chemistries: BUN is 21, creatinine 0.9. BNP is 1,584. Chest x-ray: There are no acute infiltrates or effusions. There is mild pulmonary increased markings bilaterally. IMPRESSION: 1. Chest pain secondary to severe anemia. 2. Arteriosclerotic heart disease, status post drug eluting stent. 3. Mild congestive heart failure. 4. Obstructive sleep apnea. 5. History of asthma currently not in exacerbation. 6. Hyperlipidemia. 7. Diabetes. 8. Morbid obesity. PLAN: Monitor hemoglobin and hematocrit. Transfuse as needed. GI workup. Inhaled bronchodilators and supplemental oxygen. CHINO MANN M.D. [id number]
--- NOTE | 2017-06-21 15:28 | PN ---
Progress Note, Physician Chief Complaint: Anemia History of Present Illness: Patient HG/HCT stable 11/33.1 s/p transfusion, she denies abdominal pain, no nausea, no vomiting, no dizziness. - Current Medication List Current Medications: Active Medications Acetaminophen (Tylenol -) 650 mg PO Q4H PRN PRN Reason: PAIN LEVEL 1-5 Last Admin: 06/20/17 00:25 Dose: 650 mg Albuterol Sulfate (Ventolin 0.083% Nebulizer Soln -) 1 amp NEB Q6H PRN PRN Reason: SHORT OF BREATH/WHEEZING Last Admin: 06/20/17 22:15 Dose: 1 amp Atorvastatin Calcium (Lipitor -) 40 mg PO HS [facility] Last Admin: 06/20/17 21:58 Dose: 40 mg Furosemide (Lasix -) 40 mg PO DAILY [facility] Last Admin: 06/20/17 09:32 Dose: Not Given Pantoprazole Sodium 160 mg/ (Dextrose) 290 mls @ 14.5 mls/hr IVPB Q20H [facility] Last Admin: 06/20/17 21:58 Dose: 14.5 mls/hr Insulin Aspart (Novolog Vial Sliding Scale -) 1 vial SQ ACHS [facility] PRN Reason: Protocol Last Admin: 06/21/17 06:32 Dose: 7 units Insulin Detemir (Levemir Vial) 35 units SQ BID@0700,2200 [facility] Last Admin: 06/21/17 06:31 Dose: 35 units Metoprolol Succinate (Toprol Xl -) 25 mg PO DAILY [facility] Last Admin: 06/21/17 09:51 Dose: 25 mg Mometasone Furoate (Asmanex 220mcg -) 2 puff IH DAILY PRN PRN Reason: ASTHMA - Objective Vital Signs: Vital Signs Temperature 97.8 F 06/21/17 09:00 Pulse Rate 79 06/21/17 09:00 Respiratory Rate 20 06/21/17 09:00 Blood Pressure 143/64 06/21/17 09:00 O2 Sat by Pulse Oximetry (%) 97 06/21/17 09:00 Constitutional: Yes: Well Nourished, No Distress, Calm Eyes: Yes: Conjunctiva Clear HENT: Yes: Atraumatic Cardiovascular: Yes: Regular Rate and Rhythm Respiratory: Yes: Regular Gastrointestinal: Yes: Normal Bowel Sounds, Soft, Abdomen, Obese. No: Palpable Mass, Tenderness, Tenderness, Epigastrium, Tenderness, Rebound, Vomiting Labs: CBC, BMP 06/21/17 08:00 06/20/17 06:57 Problem List - Problems (1) Anemia Assessment/Plan: occult GI bleeding Recommendation: will need GI work up once medically cleared even as an outpatient. Currently high risk for any GI procedure. Code(s): D64.9 - ANEMIA, UNSPECIFIED Qualifiers: Anemia type: unspecified type Qualified Code(s): D64.9 - Anemia, unspecified
[2017-06-21] MEDS ORDERED: INSULIN (NOVOLOG) ASPART 100 UNITS/ML 10ML VIAL ONE ×2 (15:54→21:22)
[2017-06-21] MEDS: FUROSEMIDE 40 MG TABLET (FP) PO SCH (15:55)
[2017-06-21] MEDS: ATORVASTATIN CA 40 MG TABLET (FP) PO SCH (21:30)
[2017-06-21] MEDS: ACETAMINOPHEN 325 MG TABLET (FP) PO PRN (21:39)
[2017-06-22] MEDS: INSULIN DETEMIR 100 UNITS/ML MDV SQ SCH ×2 (06:23→21:47)
[2017-06-22] MEDS: INSULIN SLIDING SCALE (NOVOLOG) 1 VIAL SQ SCH ×4 (06:23→21:49)
[2017-06-22] MEDS ORDERED: INSULIN (NOVOLOG) ASPART 100 UNITS/ML 10ML VIAL ONE ×3 (06:27→21:39)
--- NOTE | 2017-06-22 09:56 | PN ---
Progress Note, Physician History of Present Illness: FEELS BETTER - Current Medication List Current Medications: Active Medications Acetaminophen (Tylenol -) 650 mg PO Q4H PRN PRN Reason: PAIN LEVEL 1-5 Last Admin: 06/21/17 21:39 Dose: 650 mg Albuterol Sulfate (Ventolin 0.083% Nebulizer Soln -) 1 amp NEB Q6H PRN PRN Reason: SHORT OF BREATH/WHEEZING Last Admin: 06/20/17 22:15 Dose: 1 amp Atorvastatin Calcium (Lipitor -) 40 mg PO HS [facility] Last Admin: 06/21/17 21:30 Dose: 40 mg Clopidogrel Bisulfate (Plavix -) 75 mg PO DAILY [facility] Furosemide (Lasix -) 40 mg PO DAILY [facility] Last Admin: 06/21/17 15:55 Dose: 40 mg Insulin Aspart (Novolog Vial Sliding Scale -) 1 vial SQ ACHS [facility] PRN Reason: Protocol Last Admin: 06/22/17 06:23 Dose: 7 units Insulin Detemir (Levemir Vial) 35 units SQ BID@0700,2200 [facility] Last Admin: 06/22/17 06:23 Dose: 35 units Metoprolol Succinate (Toprol Xl -) 25 mg PO DAILY [facility] Last Admin: 06/21/17 09:51 Dose: 25 mg Mometasone Furoate (Asmanex 220mcg -) 2 puff IH DAILY PRN PRN Reason: ASTHMA Pantoprazole Sodium (Protonix -) 40 mg PO BID [facility] - Objective Vital Signs: Vital Signs Temperature 98.8 F 06/22/17 05:00 Pulse Rate 74 06/22/17 05:00 Respiratory Rate 19 06/22/17 05:00 Blood Pressure 124/66 06/22/17 05:00 O2 Sat by Pulse Oximetry (%) 95 06/21/17 21:00 Cardiovascular: Yes: Regular Rate and Rhythm Respiratory: Yes: Regular, CTA Bilaterally Gastrointestinal: Yes: Normal Bowel Sounds, Soft Labs: CBC, BMP 06/21/17 08:00 06/20/17 06:57 Problem List - Problems (1) GI bleed Assessment/Plan: TRANSFUSED 4 PRBC-- GI CONSULT NOTED AND DISCUSSED TO START W/U--CLEARED BY CARDIO RESUME ASA AND PLAVIX HEMOOCOULT PPI Code(s): K92.2 - GASTROINTESTINAL HEMORRHAGE, UNSPECIFIED (2) CAD (coronary artery disease) Assessment/Plan: RESUME ASA AND PLAVIX Code(s): I25.10 - ATHSCL HEART DISEASE OF [place] CORONARY ARTERY W/O ANG PCTRS (3) Anemia Assessment/Plan: ABOVE Code(s): D64.9 - ANEMIA, UNSPECIFIED Qualifiers: Anemia type: unspecified type Qualified Code(s): D64.9 - Anemia, unspecified (4) Chest pain Assessment/Plan: RESOLVED FOLLOW CE--NEG CARDIO NOTED Code(s): R07.9 - CHEST PAIN, UNSPECIFIED (5) Diabetes mellitus, insulin dependent (IDDM), uncontrolled Assessment/Plan: BGM IMSULIN ENDO Code(s): E10.65 - TYPE 1 DIABETES MELLITUS WITH HYPERGLYCEMIA Qualifiers: Chronic kidney disease stage: unspecified stage
[2017-06-22] MEDS: PANTOPRAZOLE 40 MG TABLET (FP) PO SCH ×2 (10:37→21:45)
[2017-06-22] MEDS: CLOPIDOGREL BISULFATE 75 MG TABLET (FP) PO SCH (10:37)
[2017-06-22] MEDS: ASPIRIN COATED 81 MG TABLET.EC PO SCH (10:37)
[2017-06-22] MEDS: FUROSEMIDE 40 MG TABLET (FP) PO SCH (10:37)
[2017-06-22] MEDS: metoPROLOL SUCCINATE 25 MG TAB.SR.24H (FP) PO SCH (10:37)
[2017-06-22 10:38] LABS: EOS % 3.5 % (0-4.5); HEMATOCRIT 35.7 % (32.4-45.2); HEMOGLOBIN 11.8 GM/dL (10.7-15.3); LYMPH % 14.8 % (8-40); MCH 27.8 pg (25.7-33.7); MCHC 32.9 g/dl (32.0-36.0); MEAN CELL VOLUME 84.5 fl (80-96); MEAN PLT VOLUME 10.1 fl (7.5-11.1); MONO % 7.6 % (3.8-10.2); NEUT % 73.1 % (42.8-82.8); PLATELET COUNT 277 K/MM3 (134-434); RBC 4.23 M/mm3 (3.60-5.2); RDW 17.4 % (11.6-15.6); WHITE BLOOD COUNT 8.3 K/mm3 (4.0-10.0)
[2017-06-22 11:26] LABS: CHLORIDE 97 mmol/L (98-107); POTASSIUM 4.4 mmol/L (3.5-5.1); SODIUM 137 mmol/L (136-145)
--- NOTE | 2017-06-22 11:34 | PN ---
Progress Note, Physician Chief Complaint: AWAKE ALERT FEELING BETTER - Current Medication List Current Medications: Active Medications Acetaminophen (Tylenol -) 650 mg PO Q4H PRN PRN Reason: PAIN LEVEL 1-5 Last Admin: 06/21/17 21:39 Dose: 650 mg Albuterol Sulfate (Ventolin 0.083% Nebulizer Soln -) 1 amp NEB Q6H PRN PRN Reason: SHORT OF BREATH/WHEEZING Last Admin: 06/20/17 22:15 Dose: 1 amp Aspirin (Ecotrin -) 81 mg PO DAILY [facility] Last Admin: 06/22/17 10:37 Dose: 81 mg Atorvastatin Calcium (Lipitor -) 40 mg PO HS [facility] Last Admin: 06/21/17 21:30 Dose: 40 mg Clopidogrel Bisulfate (Plavix -) 75 mg PO DAILY [facility] Last Admin: 06/22/17 10:37 Dose: 75 mg Furosemide (Lasix -) 40 mg PO DAILY [facility] Last Admin: 06/22/17 10:37 Dose: 40 mg Insulin Aspart (Novolog Vial Sliding Scale -) 1 vial SQ ACHS [facility] PRN Reason: Protocol Last Admin: 06/22/17 06:23 Dose: 7 units Insulin Detemir (Levemir Vial) 35 units SQ BID@0700,2200 [facility] Last Admin: 06/22/17 06:23 Dose: 35 units Metoprolol Succinate (Toprol Xl -) 25 mg PO DAILY [facility] Last Admin: 06/22/17 10:37 Dose: 25 mg Mometasone Furoate (Asmanex 220mcg -) 2 puff IH DAILY PRN PRN Reason: ASTHMA Pantoprazole Sodium (Protonix -) 40 mg PO BID [facility] Last Admin: 06/22/17 10:37 Dose: 40 mg - Objective Vital Signs: Vital Signs Temperature 98.8 F 06/22/17 05:00 Pulse Rate 74 06/22/17 05:00 Respiratory Rate 19 06/22/17 05:00 Blood Pressure 124/66 06/22/17 05:00 O2 Sat by Pulse Oximetry (%) 95 06/21/17 21:00 Constitutional: Yes: Mild Distress Eyes: Yes: WNL HENT: Yes: WNL Neck: Yes: WNL Cardiovascular: Yes: WNL Respiratory: Yes: WNL Gastrointestinal: Yes: WNL Genitourinary: Yes: WNL Musculoskeletal: Yes: WNL Extremities: Yes: WNL Edema: Yes Integumentary: Yes: WNL Wound/Incision: Yes: Clean/Dry Neurological: Yes: WNL ...Motor Strength: WNL Psychiatric: Yes: WNL Labs: CBC, BMP 06/22/17 10:20 Problem List - Problems (1) Anemia Code(s): D64.9 - ANEMIA, UNSPECIFIED Qualifiers: Anemia type: unspecified type Qualified Code(s): D64.9 - Anemia, unspecified (2) CAD (coronary artery disease) Code(s): I25.10 - ATHSCL HEART DISEASE OF [place] CORONARY ARTERY W/O ANG PCTRS (3) Diabetes 1.5, managed as type 2 Code(s): E10.9 - TYPE 1 DIABETES MELLITUS WITHOUT COMPLICATIONS (4) GI bleed Code(s): K92.2 - GASTROINTESTINAL HEMORRHAGE, UNSPECIFIED (5) Shortness of breath Code(s): R06.02 - SHORTNESS OF BREATH (6) HORACE (acute kidney injury) Code(s): N17.9 - ACUTE KIDNEY FAILURE, UNSPECIFIED (7) Acute hypoxemic respiratory failure Code(s): J96.01 - ACUTE RESPIRATORY FAILURE WITH HYPOXIA (8) Atypical chest pain Code(s): R07.89 - OTHER CHEST PAIN (9) Hypertension Code(s): I10 - ESSENTIAL (PRIMARY) HYPERTENSION (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
[2017-06-22 11:40] LABS: ANION GAP 12 (8-16); BLOOD UREA NITROGEN 34 mg/dL (7-18); CALCIUM 8.7 mg/dL (8.5-10.1); CO2 28 mmol/L (21-32); CREATININE 1.2 mg/dL (0.55-1.02); GLUCOSE,RANDOM 292 mg/dL (74-106)
[2017-06-22] MEDS ORDERED: MAGNESIUM CITRATE 300 ML BOTTLE PO ONE ×5 (13:47→21:00)
--- NOTE | 2017-06-22 14:04 | PN ---
Progress Note, Physician Chief Complaint: No chest pain or sob No events on tele History of Present Illness: 66 year old female with a pmhx of htn, dm, asthma, hld, cad s/p cardiac cath 05/02/17 RADU to [facility] who presents with sob and chest pain for several days. Denies any n/v/d. No pnd, orthopnea, or edema. Gets sob with minimal exertion. Noted to have Hgb 6.4. Transfused and feels better and asymptomatic ambulating in room with no complaints. Echocardiogram 02/21/17: nl lvef, mod mr, fcoav, mild TR, EKG: sinus rhythm with lateral TWI unchanged from prior - Current Medication List Current Medications: Active Medications Acetaminophen (Tylenol -) 650 mg PO Q4H PRN PRN Reason: PAIN LEVEL 1-5 Last Admin: 06/21/17 21:39 Dose: 650 mg Albuterol Sulfate (Ventolin 0.083% Nebulizer Soln -) 1 amp NEB Q6H PRN PRN Reason: SHORT OF BREATH/WHEEZING Last Admin: 06/20/17 22:15 Dose: 1 amp Aspirin (Ecotrin -) 81 mg PO DAILY [facility] Last Admin: 06/22/17 10:37 Dose: 81 mg Atorvastatin Calcium (Lipitor -) 40 mg PO HS [facility] Last Admin: 06/21/17 21:30 Dose: 40 mg Clopidogrel Bisulfate (Plavix -) 75 mg PO DAILY [facility] Last Admin: 06/22/17 10:37 Dose: 75 mg Furosemide (Lasix -) 40 mg PO DAILY [facility] Last Admin: 06/22/17 10:37 Dose: 40 mg Insulin Aspart (Novolog Vial Sliding Scale -) 1 vial SQ ACHS [facility] PRN Reason: Protocol Last Admin: 06/22/17 12:44 Dose: 9 units Insulin Detemir (Levemir Vial) 35 units SQ BID@0700,2200 [facility] Last Admin: 06/22/17 06:23 Dose: 35 units Magnesium Citrate (Citroma -) 300 ml PO ONCE ONE Stop: 06/22/17 13:48 Metoprolol Succinate (Toprol Xl -) 25 mg PO DAILY [facility] Last Admin: 06/22/17 10:37 Dose: 25 mg Mometasone Furoate (Asmanex 220mcg -) 2 puff IH DAILY PRN PRN Reason: ASTHMA Pantoprazole Sodium (Protonix -) 40 mg PO BID [facility] Last Admin: 06/22/17 10:37 Dose: 40 mg Sodium Phosphate (Fleet Adult Rectal Enema -) 133 ml [place] ONCE ONE Stop: 06/23/17 05:01 - Objective Vital Signs: Vital Signs Temperature 98 F 06/22/17 09:00 Pulse Rate 82 06/22/17 09:00 Respiratory Rate 22 06/22/17 09:00 Blood Pressure 134/59 06/22/17 09:00 O2 Sat by Pulse Oximetry (%) 95 06/21/17 21:00 Constitutional: Yes: No Distress Neck: Yes: Supple Cardiovascular: Yes: Regular Rate and Rhythm, S1, S2. No: Murmur Respiratory: Yes: CTA Bilaterally Gastrointestinal: Yes: Soft Edema: No Labs: CBC, BMP 06/22/17 10:20 06/22/17 10:20 Problem List - Problems (1) CAD (coronary artery disease) Code(s): I25.10 - ATHSCL HEART DISEASE OF [place] CORONARY ARTERY W/O ANG PCTRS Assessment/Plan 66 year old female with a pmhx of htn, dm, asthma, hld, cad s/p cardiac cath 05/02 [facility]U to [facility] who presents with sob and chest pain for several days. Denies any n/v/d. No pnd, orthopnea, or edema. Gets sob with minimal exertion. Noted to have Hgb 6.4. Transfused and feels better and asymptomatic ambulating in room with no complaints. Echocardiogram 02/21/17: nl lvef, mod mr, fcoav, mild TR, EKG: sinus rhythm with lateral TWI unchanged from prior 1)CAD -chest pain and sob likely due to severe anemia. Symptoms have improved with improvement in h/h with transfusion. No acute changes on ekg. Had stent to LAD 05/02/17 so should stay on aspirin and plavix or risk of stent thrombosis to LAD resulting in anterior infarct Continue statin Metoprolol as tolerates Anemia work up as per primary team No cardiac contraindication to endoscopy or colonoscopy
--- NOTE | 2017-06-22 14:22 | PN ---
GI Progress Note Subjective: denies nausea and vomiting, no dysphagia and rectal bleeding - Objective Vital Signs: Vital Signs Temperature 98 F 06/22/17 09:00 Pulse Rate 82 06/22/17 09:00 Respiratory Rate 22 06/22/17 09:00 Blood Pressure 134/59 06/22/17 09:00 O2 Sat by Pulse Oximetry (%) 95 06/21/17 21:00 Constitutional: Obese Eyes: Yes: Conjunctiva Clear HENT: Yes: Atraumatic Neck: Yes: Trachea Midline Cardiovascular: Yes: Regular Rate and Rhythm Respiratory: Yes: CTA Bilaterally ...Auscultate: Yes: Normoactive Bowel Sounds ...Palpate: Yes: Soft. No: Firm/Rigid, Guarding, Hepatomegaly, Mass, Pulsatile Mass, Splenomegaly, Tenderness Labs: CBC, BMP 06/22/17 10:20 06/22/17 10:20 Problem List - Problems (1) Anemia Assessment/Plan: R>for EGD and colonoscopy, ptient cleared medically by PCP and cardiology Code(s): D64.9 - ANEMIA, UNSPECIFIED Qualifiers: Anemia type: unspecified type Qualified Code(s): D64.9 - Anemia, unspecified
--- NOTE | 2017-06-22 15:01 | PN ---
Progress Note (short form) - Note Progress Note: Feels better. No acute events overnight. No CP or SOB. Intake & Output 06/19/17 06/20/17 06/21/17 06/22/17 23:59 23:59 23:59 23:59 Intake Total 1933 1100 624 Balance 1933 1100 624 Weight 250 lb 6.4 oz 248 lb 8 oz 239 lb 2 oz 240 lb Last Vital Signs Temp Pulse Resp BP Pulse Ox 98 F 82 22 134/59 95 06/22/17 09:00 06/22/17 09:00 06/22/17 09:00 06/22/17 09:00 06/22/17 09:00 Active Medications Acetaminophen (Tylenol -) 650 mg PO Q4H PRN PRN Reason: PAIN LEVEL 1-5 Last Admin: 06/21/17 21:39 Dose: 650 mg Albuterol Sulfate (Ventolin 0.083% Nebulizer Soln -) 1 amp NEB Q6H PRN PRN Reason: SHORT OF BREATH/WHEEZING Last Admin: 06/20/17 22:15 Dose: 1 amp Aspirin (Ecotrin -) 81 mg PO DAILY [facility] Last Admin: 06/22/17 10:37 Dose: 81 mg Atorvastatin Calcium (Lipitor -) 40 mg PO HS [facility] Last Admin: 06/21/17 21:30 Dose: 40 mg Clopidogrel Bisulfate (Plavix -) 75 mg PO DAILY [facility] Last Admin: 06/22/17 10:37 Dose: 75 mg Furosemide (Lasix -) 40 mg PO DAILY [facility] Last Admin: 06/22/17 10:37 Dose: 40 mg Insulin Aspart (Novolog Vial Sliding Scale -) 1 vial SQ ACHS [facility] PRN Reason: Protocol Insulin Detemir (Levemir Vial) 45 units SQ BID@0700,2200 [facility] Magnesium Citrate (Citroma -) 300 ml PO ONCE ONE Stop: 06/22/17 14:31 Metoprolol Succinate (Toprol Xl -) 25 mg PO DAILY [facility] Last Admin: 06/22/17 10:37 Dose: 25 mg Mometasone Furoate (Asmanex 220mcg -) 2 puff IH DAILY PRN PRN Reason: ASTHMA Pantoprazole Sodium (Protonix -) 40 mg PO BID [facility] Last Admin: 06/22/17 10:37 Dose: 40 mg Sodium Phosphate (Fleet Adult Rectal Enema -) 133 ml [place] ONCE ONE Stop: 06/23/17 05:01 Sodium Phosphate (Fleet Adult Rectal Enema -) 133 ml GA ONCE ONE Stop: 06/23/17 05:07 Constitutional: Yes: No Distress Neck: Yes: Supple Cardiovascular: Yes: S1, S2. No: Murmur Respiratory: Yes: diminished at the bases Gastrointestinal: Yes: Soft Edema: No Laboratory Results - last 24 hr 06/21/17 06/21/17 06/22/17 17:27 21:26 05:37 WBC RBC Hgb Hct MCV MCH MCHC RDW Plt Count MPV Neutrophils % Lymphocytes % Monocytes % Eosinophils % Basophils % Sodium Potassium Chloride Carbon Dioxide Anion Gap BUN Creatinine POC Glucometer 113 240 209 Random Glucose Calcium 06/22/17 06/22/17 06/22/17 10:20 10:20 11:46 WBC 8.3 RBC 4.23 Hgb 11.8 Hct 35.7 MCV 84.5 MCH 27.8 MCHC 32.9 RDW 17.4 H Plt Count 277 MPV 10.1 Neutrophils % 73.1 Lymphocytes % 14.8 Monocytes % 7.6 Eosinophils % 3.5 Basophils % 1.0 Sodium 137 Potassium 4.4 Chloride 97 L Carbon Dioxide 28 Anion Gap 12 BUN 34 H Creatinine 1.2 H POC Glucometer 276 Random Glucose 292 H Calcium 8.7 Problem List - Problems (1) Anemia Code(s): D64.9 - ANEMIA, UNSPECIFIED Qualifiers: Anemia type: other cause (2) CAD (coronary artery disease) Code(s): I25.10 - ATHSCL HEART DISEASE OF [place] CORONARY ARTERY W/O ANG PCTRS (3) Diabetes 1.5, managed as type 2 Code(s): E10.9 - TYPE 1 DIABETES MELLITUS WITHOUT COMPLICATIONS (4) GI bleed Code(s): K92.2 - GASTROINTESTINAL HEMORRHAGE, UNSPECIFIED (5) Shortness of breath Code(s): R06.02 - SHORTNESS OF BREATH (6) Chest pain Code(s): R07.9 - CHEST PAIN, UNSPECIFIED (7) HLD (hyperlipidemia) Code(s): E78.5 - HYPERLIPIDEMIA, UNSPECIFIED (8) Symptomatic anemia Code(s): D64.9 - ANEMIA, UNSPECIFIED (9) Sleep apnea Code(s): G47.30 - SLEEP APNEA, UNSPECIFIED IMP SYMPTOMATIC ANEMIA DYSPNEA SECONDARY TO ANEMIA CP SECONDARY TO ANEMIA ASHD S/P RADU ASTHMA NOT IN EXACERBATION CHF HLD HTN TERENCE DM MORBID OBESITY PLAN NORMAL TRANSFUSION THRESHOLDS O2 NEEDED INHALED BRONCHODILATORS LASIX NIPPV QHS DR VARGHESE
[2017-06-22] MEDS: ATORVASTATIN CA 40 MG TABLET (FP) PO SCH (21:45)
[2017-06-23] MEDS ORDERED: MAGNESIUM CITRATE 300 ML BOTTLE PO ONE (04:00)
[2017-06-23] MEDS ORDERED: SODIUM PHOSPHATE/NA BIPHOS 133 ML ENEMA PR ONE ×2 (05:00→05:06)
[2017-06-23] MEDS: INSULIN SLIDING SCALE (NOVOLOG) 1 VIAL SQ SCH ×4 (06:15→21:38)
[2017-06-23] MEDS: INSULIN DETEMIR 100 UNITS/ML MDV SQ SCH ×2 (06:15→21:38)
[2017-06-23] MEDS ORDERED: LIDOCAINE HCL 2% (20ML MULTI-DOSE VIAL) NR ONE (11:34)
[2017-06-23] MEDS ORDERED: PROPOFOL 20 ML ONE ×3 (11:34)
--- NOTE | 2017-06-23 12:01 | PN ---
Progress Note, Physician Chief Complaint: awaiting colonoscopy - Current Medication List Current Medications: Active Medications Acetaminophen (Tylenol -) 650 mg PO Q4H PRN PRN Reason: PAIN LEVEL 1-5 Last Admin: 06/21/17 21:39 Dose: 650 mg Albuterol Sulfate (Ventolin 0.083% Nebulizer Soln -) 1 amp NEB Q6H PRN PRN Reason: SHORT OF BREATH/WHEEZING Last Admin: 06/20/17 22:15 Dose: 1 amp Aspirin (Ecotrin -) 81 mg PO DAILY [facility] Last Admin: 06/22/17 10:37 Dose: 81 mg Atorvastatin Calcium (Lipitor -) 40 mg PO HS [facility] Last Admin: 06/22/17 21:45 Dose: 40 mg Clopidogrel Bisulfate (Plavix -) 75 mg PO DAILY [facility] Last Admin: 06/22/17 10:37 Dose: 75 mg Furosemide (Lasix -) 40 mg PO DAILY [facility] Last Admin: 06/22/17 10:37 Dose: 40 mg Insulin Aspart (Novolog Vial Sliding Scale -) 1 vial SQ ACHS [facility] PRN Reason: Protocol Last Admin: 06/23/17 06:15 Dose: Not Given Insulin Detemir (Levemir Vial) 45 units SQ BID@0700,2200 [facility] Last Admin: 06/23/17 06:15 Dose: Not Given Metoprolol Succinate (Toprol Xl -) 25 mg PO DAILY [facility] Last Admin: 06/22/17 10:37 Dose: 25 mg Mometasone Furoate (Asmanex 220mcg -) 2 puff IH DAILY PRN PRN Reason: ASTHMA Pantoprazole Sodium (Protonix -) 40 mg PO BID [facility] Last Admin: 06/22/17 21:45 Dose: 40 mg - Objective Vital Signs: Vital Signs Temperature 98.6 F 06/23/17 06:00 Pulse Rate 87 06/23/17 06:00 Respiratory Rate 19 06/23/17 06:00 Blood Pressure 136/55 06/23/17 06:00 O2 Sat by Pulse Oximetry (%) 96 06/22/17 21:00 Constitutional: Yes: Mild Distress Eyes: Yes: WNL HENT: Yes: WNL Neck: Yes: WNL Respiratory: Yes: WNL, Other ...Rectal Exam: Yes: WNL Genitourinary: Yes: WNL Musculoskeletal: Yes: WNL Extremities: Yes: WNL Edema: Yes Peripheral Pulses WNL: Yes Integumentary: Yes: WNL Wound/Incision: Yes: Clean/Dry Neurological: Yes: WNL ...Motor Strength: WNL Psychiatric: Yes: WNL Labs: CBC, BMP 06/22/17 10:20 06/22/17 10:20 Problem List - Problems (1) Anemia Code(s): D64.9 - ANEMIA, UNSPECIFIED Qualifiers: Anemia type: unspecified type Qualified Code(s): D64.9 - Anemia, unspecified (2) CAD (coronary artery disease) Code(s): I25.10 - ATHSCL HEART DISEASE OF [place] CORONARY ARTERY W/O ANG PCTRS (3) Diabetes 1.5, managed as type 2 Code(s): E10.9 - TYPE 1 DIABETES MELLITUS WITHOUT COMPLICATIONS (4) GI bleed Code(s): K92.2 - GASTROINTESTINAL HEMORRHAGE, UNSPECIFIED (5) Shortness of breath Code(s): R06.02 - SHORTNESS OF BREATH (6) HORACE (acute kidney injury) Code(s): N17.9 - ACUTE KIDNEY FAILURE, UNSPECIFIED (7) Acute hypoxemic respiratory failure Code(s): J96.01 - ACUTE RESPIRATORY FAILURE WITH HYPOXIA (8) Atypical chest pain Code(s): R07.89 - OTHER CHEST PAIN (9) Hypertension Code(s): I10 - ESSENTIAL (PRIMARY) HYPERTENSION (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
--- NOTE | 2017-06-23 13:09 | PN ---
Progress Note, Physician History of Present Illness: pulmonary alert,oob-chair,-sob,-cp. pt s/p egd tolerated procedure well. - Current Medication List Current Medications: Active Medications Acetaminophen (Tylenol -) 650 mg PO Q4H PRN PRN Reason: PAIN LEVEL 1-5 Last Admin: 06/21/17 21:39 Dose: 650 mg Albuterol Sulfate (Ventolin 0.083% Nebulizer Soln -) 1 amp NEB Q6H PRN PRN Reason: SHORT OF BREATH/WHEEZING Last Admin: 06/20/17 22:15 Dose: 1 amp Aspirin (Ecotrin -) 81 mg PO DAILY [facility] Last Admin: 06/22/17 10:37 Dose: 81 mg Atorvastatin Calcium (Lipitor -) 40 mg PO HS [facility] Last Admin: 06/22/17 21:45 Dose: 40 mg Clopidogrel Bisulfate (Plavix -) 75 mg PO DAILY [facility] Last Admin: 06/22/17 10:37 Dose: 75 mg Furosemide (Lasix -) 40 mg PO DAILY [facility] Last Admin: 06/22/17 10:37 Dose: 40 mg Insulin Aspart (Novolog Vial Sliding Scale -) 1 vial SQ ACHS [facility] PRN Reason: Protocol Last Admin: 06/23/17 06:15 Dose: Not Given Insulin Detemir (Levemir Vial) 50 units SQ BID@0700,2200 [facility] Metoprolol Succinate (Toprol Xl -) 25 mg PO DAILY [facility] Last Admin: 06/22/17 10:37 Dose: 25 mg Mometasone Furoate (Asmanex 220mcg -) 2 puff IH DAILY PRN PRN Reason: ASTHMA Pantoprazole Sodium (Protonix -) 40 mg PO BID [facility] Last Admin: 06/22/17 21:45 Dose: 40 mg - Objective Vital Signs: Vital Signs Temperature 97.6 F 06/23/17 12:12 Pulse Rate 72 06/23/17 12:44 Respiratory Rate 20 06/23/17 12:44 Blood Pressure 157/52 06/23/17 12:44 O2 Sat by Pulse Oximetry (%) 100 06/23/17 12:44 Constitutional: Yes: Well Nourished, Calm Eyes: Yes: WNL HENT: Yes: WNL Neck: Yes: WNL Cardiovascular: Yes: Regular Rate and Rhythm, S1, S2 Respiratory: Yes: CTA Bilaterally Gastrointestinal: Yes: Normal Bowel Sounds, Soft Extremities: Yes: WNL Edema: No Problem List - Problems (1) Anemia Code(s): D64.9 - ANEMIA, UNSPECIFIED Qualifiers: Anemia type: unspecified type Qualified Code(s): D64.9 - Anemia, unspecified (2) CAD (coronary artery disease) Code(s): I25.10 - ATHSCL HEART DISEASE OF [place] CORONARY ARTERY W/O ANG PCTRS (3) Diabetes 1.5, managed as type 2 Code(s): E10.9 - TYPE 1 DIABETES MELLITUS WITHOUT COMPLICATIONS (4) GI bleed Code(s): K92.2 - GASTROINTESTINAL HEMORRHAGE, UNSPECIFIED (5) Shortness of breath Code(s): R06.02 - SHORTNESS OF BREATH (6) Chest pain Code(s): R07.9 - CHEST PAIN, UNSPECIFIED (7) HLD (hyperlipidemia) Code(s): E78.5 - HYPERLIPIDEMIA, UNSPECIFIED (8) Symptomatic anemia Code(s): D64.9 - ANEMIA, UNSPECIFIED (9) Sleep apnea Code(s): G47.30 - SLEEP APNEA, UNSPECIFIED Assessment/Plan IMP SYMPTOMATIC ANEMIA IMPROVED DYSPNEA SECONDARY TO ANEMIA CP SECONDARY TO ANEMIA ASHD S/P RADU ASTHMA NOT IN EXACERBATION CHF HLD HTN TERENCE DM MORBID OBESITY PLAN TRANSFUSE NEEDED O2 MONITOR H+H INHALED BRONCHODILATORS LASIX PO GI W/U IP PROGRESS BIPAP AT NIGHT DR MANN Problem List - Problems (1) Anemia Code(s): D64.9 - ANEMIA, UNSPECIFIED Qualifiers: Anemia type: other cause (2) CAD (coronary artery disease) Code(s): I25.10 - ATHSCL HEART DISEASE OF [place] CORONARY ARTERY W/O ANG PCTRS (3) Diabetes 1.5, managed as type 2 Code(s): E10.9 - TYPE 1 DIABETES MELLITUS WITHOUT COMPLICATIONS (4) GI bleed Code(s): K92.2 - GASTROINTESTINAL HEMORRHAGE, UNSPECIFIED (5) Shortness of breath Code(s): R06.02 - SHORTNESS OF BREATH (6) Chest pain Code(s): R07.9 - CHEST PAIN, UNSPECIFIED (7) HLD (hyperlipidemia) Code(s): E78.5 - HYPERLIPIDEMIA, UNSPECIFIED (8) Symptomatic anemia Code(s): D64.9 - ANEMIA, UNSPECIFIED (9) Sleep apnea Code(s): G47.30 - SLEEP APNEA, UNSPECIFIED
--- NOTE | 2017-06-23 14:13 | PN ---
Progress Note, Physician Chief Complaint: No complaints Lying flat and comfortable in bed History of Present Illness: 66 year old female with a pmhx of htn, dm, asthma, hld, cad s/p cardiac cath 05/02/17 RADU to [facility] who presents with sob and chest pain for several days. Denies any n/v/d. No pnd, orthopnea, or edema. Gets sob with minimal exertion. Noted to have Hgb 6.4. Transfused and feels better and asymptomatic ambulating in room with no complaints. Echocardiogram 02/21/17: nl lvef, mod mr, fcoav, mild TR, EKG: sinus rhythm with lateral TWI unchanged from prior - Current Medication List Current Medications: Active Medications Acetaminophen (Tylenol -) 650 mg PO Q4H PRN PRN Reason: PAIN LEVEL 1-5 Last Admin: 06/21/17 21:39 Dose: 650 mg Albuterol Sulfate (Ventolin 0.083% Nebulizer Soln -) 1 amp NEB Q6H PRN PRN Reason: SHORT OF BREATH/WHEEZING Last Admin: 06/20/17 22:15 Dose: 1 amp Aspirin (Ecotrin -) 81 mg PO DAILY [facility] Last Admin: 06/22/17 10:37 Dose: 81 mg Atorvastatin Calcium (Lipitor -) 40 mg PO HS [facility] Last Admin: 06/22/17 21:45 Dose: 40 mg Clopidogrel Bisulfate (Plavix -) 75 mg PO DAILY [facility] Last Admin: 06/22/17 10:37 Dose: 75 mg Furosemide (Lasix -) 40 mg PO DAILY [facility] Last Admin: 06/22/17 10:37 Dose: 40 mg Insulin Aspart (Novolog Vial Sliding Scale -) 1 vial SQ ACHS [facility] PRN Reason: Protocol Last Admin: 06/23/17 13:57 Dose: Not Given Insulin Detemir (Levemir Vial) 50 units SQ BID@0700,2200 [facility] Metoprolol Succinate (Toprol Xl -) 25 mg PO DAILY [facility] Last Admin: 06/22/17 10:37 Dose: 25 mg Mometasone Furoate (Asmanex 220mcg -) 2 puff IH DAILY PRN PRN Reason: ASTHMA Pantoprazole Sodium (Protonix -) 40 mg PO BID [facility] Last Admin: 06/22/17 21:45 Dose: 40 mg - Objective Vital Signs: Vital Signs Temperature 97.6 F 06/23/17 12:12 Pulse Rate 72 06/23/17 12:44 Respiratory Rate 20 06/23/17 12:44 Blood Pressure 157/52 06/23/17 12:44 O2 Sat by Pulse Oximetry (%) 100 06/23/17 12:44 Constitutional: Yes: No Distress Cardiovascular: Yes: Regular Rate and Rhythm, Murmur (2/6 HSM apex), S1, S2 Respiratory: Yes: CTA Bilaterally Gastrointestinal: Yes: Soft, Abdomen, Obese Edema: No Labs: CBC, BMP 06/22/17 10:20 06/22/17 10:20 Problem List - Problems (1) CAD (coronary artery disease) Code(s): I25.10 - ATHSCL HEART DISEASE OF [place] CORONARY ARTERY W/O ANG PCTRS Assessment/Plan 66 year old female with a pmhx of htn, dm, asthma, hld, cad s/p cardiac cath 05/02 RADU to [facility] who presents with sob and chest pain for several days. Denies any n/v/d. No pnd, orthopnea, or edema. Gets sob with minimal exertion. Noted to have Hgb 6.4. Transfused and feels better and asymptomatic ambulating in room with no complaints. Echocardiogram 02/21/17: nl lvef, mod mr, fcoav, mild TR, EKG: sinus rhythm with lateral TWI unchanged from prior 1)CAD -chest pain and sob likely due to severe anemia. Symptoms have improved with improvement in h/h with transfusion. No acute changes on ekg. Had stent to LAD 05/02/17 so should stay on aspirin and plavix or risk of stent thrombosis to LAD resulting in anterior infarct Continue statin Metoprolol as tolerates Anemia work up in progress. Underwent EGD today F/u with cardiology as outpt
[2017-06-23] MEDS: FUROSEMIDE 40 MG TABLET (FP) PO SCH (15:13)
[2017-06-23] MEDS: metoPROLOL SUCCINATE 25 MG TAB.SR.24H (FP) PO SCH (15:13)
[2017-06-23] MEDS: PANTOPRAZOLE 40 MG TABLET (FP) PO SCH ×2 (15:13→21:39)
[2017-06-23] MEDS: ASPIRIN COATED 81 MG TABLET.EC PO SCH (15:13)
[2017-06-23] MEDS: CLOPIDOGREL BISULFATE 75 MG TABLET (FP) PO SCH (15:13)
[2017-06-23] MEDS ORDERED: INSULIN (NOVOLOG) ASPART 100 UNITS/ML 10ML VIAL ONE (21:18)
[2017-06-23] MEDS: ATORVASTATIN CA 40 MG TABLET (FP) PO SCH (21:39)
--- NOTE | 2017-06-24 02:12 | PN ---
Progress Note, Physician Chief Complaint: COMFORTABLE BREATHING SITTING IN CHAIR History of Present Illness: DM,MORBID OBESITY SP EGD - Current Medication List Current Medications: Active Medications Acetaminophen (Tylenol -) 650 mg PO Q4H PRN PRN Reason: PAIN LEVEL 1-5 Last Admin: 06/21/17 21:39 Dose: 650 mg Albuterol Sulfate (Ventolin 0.083% Nebulizer Soln -) 1 amp NEB Q6H PRN PRN Reason: SHORT OF BREATH/WHEEZING Last Admin: 06/20/17 22:15 Dose: 1 amp Aspirin (Ecotrin -) 81 mg PO DAILY [facility] Last Admin: 06/23/17 15:13 Dose: 81 mg Atorvastatin Calcium (Lipitor -) 40 mg PO HS [facility] Last Admin: 06/23/17 21:39 Dose: 40 mg Clopidogrel Bisulfate (Plavix -) 75 mg PO DAILY [facility] Last Admin: 06/23/17 15:13 Dose: 75 mg Furosemide (Lasix -) 40 mg PO DAILY [facility] Last Admin: 06/23/17 15:13 Dose: 40 mg Insulin Aspart (Novolog Vial Sliding Scale -) 1 vial SQ ACHS [facility] PRN Reason: Protocol Last Admin: 06/23/17 21:38 Dose: 15 units Insulin Detemir (Levemir Vial) 50 units SQ BID@0700,2200 [facility] Last Admin: 06/23/17 21:38 Dose: 50 units Metoprolol Succinate (Toprol Xl -) 25 mg PO DAILY [facility] Last Admin: 06/23/17 15:13 Dose: 25 mg Mometasone Furoate (Asmanex 220mcg -) 2 puff IH DAILY PRN PRN Reason: ASTHMA Pantoprazole Sodium (Protonix -) 40 mg PO BID [facility] Last Admin: 06/23/17 21:39 Dose: 40 mg - Objective Vital Signs: Vital Signs Temperature 98.4 F 06/23/17 18:00 Pulse Rate 79 06/23/17 18:00 Respiratory Rate 20 06/23/17 18:00 Blood Pressure 129/59 06/23/17 18:00 O2 Sat by Pulse Oximetry (%) 100 06/23/17 12:44 Constitutional: Yes: Well Nourished Eyes: Yes: EOM Intact HENT: Yes: Normocephalic Neck: Yes: Trachea Midline, Thyromegaly Cardiovascular: Yes: Regular Rate and Rhythm Respiratory: Yes: CTA Bilaterally Gastrointestinal: Yes: Normal Bowel Sounds ...Rectal Exam: Yes: Deferred Genitourinary: Yes: WNL Breast(s): Yes: WNL Musculoskeletal: Yes: WNL Extremities: Yes: WNL Edema: Yes Peripheral Pulses WNL: Yes Integumentary: Yes: WNL Labs: CBC, BMP 06/22/17 10:20 06/22/17 10:20 Problem List - Problems (1) Diabetes 1.5, managed as type 2 Code(s): E10.9 - TYPE 1 DIABETES MELLITUS WITHOUT COMPLICATIONS (2) Shortness of breath Code(s): R06.02 - SHORTNESS OF BREATH (3) Atypical chest pain Code(s): R07.89 - OTHER CHEST PAIN (4) Chest pain Code(s): R07.9 - CHEST PAIN, UNSPECIFIED (5) Constipation Code(s): K59.00 - CONSTIPATION, UNSPECIFIED (6) Cough Code(s): R05 - COUGH Assessment/Plan Current Active Problems Anemia (Acute) CAD (coronary artery disease) (Acute) Diabetes 1.5, managed as type 2 (Acute) GI bleed (Acute) Shortness of breath (Acute) Sleep apnea (Acute) Symptomatic anemia (Acute) Abnormal Lab Results 06/19/17 13:00 Crossmatch See Detail Laboratory Results - last 24 hr 06/19/17 06/23/17 06/23/17 13:00 05:29 12:55 POC Glucometer 133 111 Blood Type O POSITIVE Antibody Screen Negative Crossmatch See Detail 06/23/17 06/23/17 17:34 21:08 POC Glucometer 254 306 Blood Type Antibody Screen Crossmatch PLAN: BGM QID NOVOLOG INSULIN DOSES LEVIMIR 50 IU BID
[2017-06-24] MEDS: INSULIN DETEMIR 100 UNITS/ML MDV SQ SCH (06:18)
[2017-06-24] MEDS: INSULIN SLIDING SCALE (NOVOLOG) 1 VIAL SQ SCH ×2 (06:19→11:45)
[2017-06-24] MEDS ORDERED: INSULIN (NOVOLOG) ASPART 100 UNITS/ML 10ML VIAL ONE (06:22)
[2017-06-24 07:31] LABS: HEMATOCRIT 35.1 % (32.4-45.2); HEMOGLOBIN 11.3 GM/dL (10.7-15.3); MCH 27.7 pg (25.7-33.7); MCHC 32.2 g/dl (32.0-36.0); MEAN PLT VOLUME 10.3 fl (7.5-11.1); PLATELET COUNT 244 K/MM3 (134-434); RBC 4.09 M/mm3 (3.60-5.2); RDW 17.3 % (11.6-15.6); WHITE BLOOD COUNT 6.3 K/mm3 (4.0-10.0)
[2017-06-24 07:56] LABS: CHLORIDE 102 mmol/L (98-107); POTASSIUM 4.6 mmol/L (3.5-5.1); SODIUM 136 mmol/L (136-145)
[2017-06-24 08:12] LABS: ANION GAP 4 (8-16); BLOOD UREA NITROGEN 33 mg/dL (7-18); CALCIUM 8.4 mg/dL (8.5-10.1); CO2 30 mmol/L (21-32); CREATININE 1.2 mg/dL (0.55-1.02); GLUCOSE,RANDOM 158 mg/dL (74-106)
[2017-06-24] MEDS: metoPROLOL SUCCINATE 25 MG TAB.SR.24H (FP) PO SCH (09:14)
[2017-06-24] MEDS: CLOPIDOGREL BISULFATE 75 MG TABLET (FP) PO SCH (09:15)
[2017-06-24] MEDS: FUROSEMIDE 40 MG TABLET (FP) PO SCH (09:15)
[2017-06-24] MEDS: PANTOPRAZOLE 40 MG TABLET (FP) PO SCH (09:15)
[2017-06-24] MEDS: ASPIRIN COATED 81 MG TABLET.EC PO SCH (09:15)
--- NOTE | 2017-06-24 10:41 | DS ---
Physical Examination Vital Signs: Vital Signs Temperature 98.5 F 06/24/17 06:00 Pulse Rate 77 06/24/17 06:00 Respiratory Rate 17 06/24/17 06:00 Blood Pressure 126/84 06/24/17 06:00 O2 Sat by Pulse Oximetry (%) 96 06/23/17 21:00 Findings/Remarks: FEELS WELL WANTS TO GO HOME Cardiovascular: Yes: Regular Rate and Rhythm Respiratory: Yes: Regular, CTA Bilaterally Gastrointestinal: Yes: Normal Bowel Sounds, Soft. No: Tenderness Labs: CBC, BMP 06/24/17 06:49 06/24/17 06:49 Discharge Summary Reason For Visit: SOB Current Active Problems Anemia (Acute) CAD (coronary artery disease) (Acute) Diabetes 1.5, managed as type 2 (Acute) GI bleed (Acute) Shortness of breath (Acute) Sleep apnea (Acute) Symptomatic anemia (Acute) Hospital Course: 66-year-old female has been having some shortness of breath and chest pain for several days. She's been having this chest pain on and off as well as some shortness of breath. She does appear to be pallor. She is not having excessive respiratory distress. Denies any fever. patient was seen here about 2 months ago for an episode of chest pain and was transferred out to [facility] under the social services coordinator Dr. De La Torre who had placed 2 cardiac stents in her LAD. She has not followed up with any physician. - Past Medical History Cardiovascular: Yes: CAD (S/P STENTING), HTN, Hyperlipdemia Pulmonary: Yes: Asthma, Sleep Apnea Gastrointestinal: Yes: GERD ...: No Musculoskeletal: Yes: Osteoarthritis Endocrine: Yes: Diabetes Mellitus - Problems (1) GI bleed Assessment/Plan: TRANSFUSED 4 PRBC--HGB STABLE GI CONSULT NOTED AND DISCUSSED TO START W/U--CLEARED BY CARDIO -HAD EGD AND COLON--POLYP--OUTPATIENT FOLLOW UP RESUME ASA AND PLAVIX HEMOOCOULT PPI Code(s): K92.2 - GASTROINTESTINAL HEMORRHAGE, UNSPECIFIED (2) CAD (coronary artery disease) Assessment/Plan: RESUME ASA AND PLAVIX Code(s): I25.10 - ATHSCL HEART DISEASE OF [place] CORONARY ARTERY W/O ANG PCTRS (3) Anemia Assessment/Plan: ABOVE Code(s): D64.9 - ANEMIA, UNSPECIFIED Qualifiers: Anemia type: unspecified type Qualified Code(s): D64.9 - Anemia, unspecified (4) Chest pain Assessment/Plan: RESOLVED FOLLOW CE--NEG CARDIO NOTED Code(s): R07.9 - CHEST PAIN, UNSPECIFIED (5) Diabetes mellitus, insulin dependent (IDDM), uncontrolled Assessment/Plan: BG IMSULIN ENDO Code(s): E10.65 - TYPE 1 DIABETES MELLITUS WITH HYPERGLYCEMIA Qualifiers: Chronic kidney disease stage: unspecified stage Condition: Improved - Instructions Diet, Activity, Other Instructions: blood test this week for blood count and potassium Referrals: Thai Alvarado MD [Staff Physician] - Russell Philip MD [Primary Care Provider] - 1 Week Disposition: HOME - Home Medications Comprehensive Discharge Medication List: Ambulatory Orders Aspirin [ASA -] 81 mg PO DAILY 08/02/12 Mometasone Furoate [Asmanex 220Mcg -] 2 inh IH DAILY PRN 08/02/12 Atorvastatin Ca [Lipitor] 40 mg PO HS #30 tablet 01/02/15 Clopidogrel Bisulfate [Plavix -] 75 mg PO DAILY 06/19/17 Metoprolol Succinate [Toprol Xl] 25 mg PO DAILY 06/19/17 Acetaminophen [Tylenol .Regular Strength -] 650 mg PO Q4H PRN tablet 06/24/17 Furosemide [Lasix -] 40 mg PO DAILY #30 tablet 06/24/17 Insulin (Levemir) [Levemir Vial] 45 units SQ BID@0700,2200 #0 ml 06/24/17 Insulin (Levemir) [Levemir Vial] 50 units SQ BID@0700,2200 #0 ml 06/24/17 Pantoprazole Sodium [Protonix -] 40 mg PO BID #60 tablet.ec 06/24/17
[2017-06-24 10:57] VITALS: BP 154/69; PULSE 76; TEMP 98.4
--- NOTE | 2017-06-26 11:44 | EKG ---
Test Reason : Blood Pressure : / mmHG Vent. Rate : 078 BPM Atrial Rate : 078 BPM P-R Int : 166 ms QRS Dur : 106 ms QT Int : 388 ms P-R-T Axes : 051 -32 110 degrees QTc Int : 442 ms NORMAL SINUS RHYTHM LEFT AXIS DEVIATION T WAVE ABNORMALITY, CONSIDER LATERAL ISCHEMIA ABNORMAL ECG WHEN COMPARED WITH ECG OF 19-JUN-2017 11:08, NO SIGNIFICANT CHANGE WAS FOUND Confirmed by TITO ROBERTS MD ([id number]) on 06/26/2017 11:44:28 AM Referred By: Confirmed By:TITO ROBERTS MD
== END 2017-06-24 13:37 | disposition home or self-care (01) | DRG 378 ==
LOC: JER 10:42 → JERBED 15:40 → J4W 23:06
PROVIDERS: ADMIT Family Medicine; ATTEND Family Medicine
PROC: 0DJ08ZZ Inspection of Upper Intestinal Tract, Via Natural or Artificial Opening Endoscopic (ICD-10-PCS; principal; 2017-06-19)
PROC: 0DJD8ZZ Inspection of Lower Intestinal Tract, Via Natural or Artificial Opening Endoscopic (ICD-10-PCS; 2017-06-19)
PROC: 30233N1 Transfusion of Nonautologous Red Blood Cells into Peripheral Vein, Percutaneous Approach (ICD-10-PCS; 2017-06-19)
DX: K92.2 Gastrointestinal hemorrhage, unspecified (principal); Z68.42 Body mass index [BMI] 45.0-49.9, adult; I25.10 Atherosclerotic heart disease of native coronary artery without angina pectoris; E11.65 Type 2 diabetes mellitus with hyperglycemia; I11.0 Hypertensive heart disease with heart failure; E78.5 Hyperlipidemia, unspecified; E66.01 Morbid (severe) obesity due to excess calories; J45.909 Unspecified asthma, uncomplicated; K21.9 Gastro-esophageal reflux disease without esophagitis; G47.30 Sleep apnea, unspecified; K63.5 Polyp of colon; M19.90 Unspecified osteoarthritis, unspecified site; D64.9 Anemia, unspecified; R07.89 Other chest pain; Z95.5 Presence of coronary angioplasty implant and graft; Z88.0 Allergy status to penicillin
CPT/HCPCS: 36415; 36430; 36511; 71045-TC-FY; 71250-TC; 74150-TC; 80048; 80053; 80061; 81003; 81015; 82550; 82962; 83036; 83540; 83721; 83880; 84439; 84443; 84484; 85025; 85027; 86850; 86900; 86901; 86922; 87086; 87186; 93005; 93010; 94640; 99284-25; P9038; P9058

== ENCOUNTER 2017-09-07 18:05 | Observation (INO) | payer BC, OTHER ==
[2017-09-07 18:12] VITALS: BMI 50.5
--- NOTE | 2017-09-07 18:15 | PDOC ---
Rapid Medical Evaluation Chief Complaint: Revisit, Lab Variance Time Seen by Provider: 09/07/17 18:10 Medical Evaluation: Allergies Allergy/AdvReac Type Severity Reaction Status Date / Time Penicillins Allergy Difficulty Verified 06/19/17 10:48 Breathing 09/07/17 18:12 You I have performed a brief in-person evaluation of this patient. The patient presents with a chief complaint of: sent by Dr Philip for admission of Hgb 7.4 noted today Pertinent physical exam findings: Pale, mild SOB, I have ordered the following: CBC, Type and screen, CMP, PT/INR and taken into main for eval The patient will proceed to the ED for further evaluation.
--- NOTE | 2017-09-07 18:20 | PDOC ---
History of Present Illness - General Chief Complaint: Revisit, Lab Variance Stated Complaint: PCP SENT/WEAKNESS Time Seen by Provider: 09/07/17 18:10 - History of Present Illness Initial Comments: 09/07/17 18:35 The patient is a 67 year old female with a history of Anemia, DM, CAD, HTN, HLD who presents for evaluation of SOB, generalized weakness. The patient is accompanied by family who assist in providing the history. They note that the patient has been experiencing worsening SOB, lightheadedness and generalized weakness over the past 3 weeks with noted pallor. They presented to the patient 's PCP Dr. Philip who noted the patient's HGB to be 7.4 and sent the patient in for admission and blood transfusion. The patient has required transfusion in the past for symptomatic anemia most recent of which in May 2017. She has been evaluated by GI in the past with a negative endoscopy and colonoscopy . The patient otherwise denies fevers, chills, cough, chest pain, nausea, vomiting, abdominal pain, or changes with urination or bowel movements. Past History - Past Medical History Allergies/Adverse Reactions: Allergies Allergy/AdvReac Type Severity Reaction Status Date / Time Penicillins Allergy Difficulty Verified 09/07/17 18:13 Breathing Home Medications: Ambulatory Orders Aspirin [ASA -] 81 mg PO DAILY 08/02/12 Mometasone Furoate [Asmanex 220Mcg -] 2 inh IH DAILY PRN 08/02/12 Atorvastatin Ca [Lipitor] 40 mg PO HS #30 tablet 01/02/15 Clopidogrel Bisulfate [Plavix -] 75 mg PO DAILY 06/19/17 Metoprolol Succinate [Toprol Xl] 25 mg PO DAILY 06/19/17 Furosemide [Lasix -] 40 mg PO DAILY #30 tablet 06/24/17 Insulin (Levemir) [Levemir Vial] 45 units SQ BID@0700,2200 #0 ml 06/24/17 Insulin (Levemir) [Levemir Vial] 50 units SQ BID@0700,2200 #0 ml 06/24/17 Asthma: Yes Cardiac Disorders: (Yes,CO) COPD: No Diabetes: Yes HTN: Yes Hypercholesterolemia: Yes - Surgical History Abdominal Surgery: Yes Cardiac Surgery: Yes (angiocath card stent x2) Orthopedic Surgery: Yes (knee surgery) - Immunization History Immunization Up to Date: Yes - Suicide/Smoking/Psychosocial Hx Smoking Status: No Smoking History: Never smoked Have you smoked in the past 12 months: No Number of Cigarettes Smoked Daily: 0 Information on smoking cessation initiated: No Hx Alcohol Use: No Drug/Substance Use Hx: No Substance Use Type: None Hx Substance Use Treatment: No Review of Systems - Review of Systems Comments:: 09/07/17 18:41 Constitutional: Fatigue. No fevers, chills, malaise HEENT: No Rhinorrhea, nasal congestion, visual changes Cardiovascular: Lightheadedness. No chest pain, syncope, palpitations, Respiratory: SOB. No Cough, Hemoptysis, Gastrointestinal: No Abdominal pain, Nausea, Vomiting, Constipation, Diarrhea, Melena Genitourinary: No Dysuria, Frequency, Urgency, Hesitancy, Hematuria, Flank pain Musculoskeletal: No Myalgia, arthralgia Skin: Pallor. No rashes, itching, bruising, Neurologic: No Headache, Dizziness, Numbness, Weakness, or Tingling Psychiatric: No Hallucinations. No SI or HI *Physical Exam - Vital Signs Last Vital Signs Temp Pulse Resp BP Pulse Ox 97.8 F 81 23 124/85 99 09/07/17 18:10 09/07/17 18:10 09/07/17 18:10 09/07/17 18:10 09/07/17 18:10 - Physical Exam Comments: 09/07/17 18:42 General Appearance: Nourished. No Apparent Distress HEENT: EOMI, TEO. No Pharyngeal Erythema, Tonsillar Exudate, Tonsillar Erythema Neck: No Cervical Lymphadenopathy Respiratory/Chest: Lungs Clear, Normal Breath Sounds. No Crackles, Rales, Rhonchi, Wheezing Cardiovascular: Regular Rhythm, Regular Rate. 2/6 Systolic murmur noted on exam. No Gallops, Rubs Gastrointestinal/Abdominal: Normal Bowel Sounds, Soft. No Guarding, Rebound, Tenderness Musculoskeletal: No CVA Tenderness Extremity: Normal Capillary Refill Integumentary: Pallor, Dry, Warm Neurologic: Fully Oriented, Alert, Normal Mood/Affect, Normal Response, Heart Score/ECG Review #1 ECG reviewed & interpreted by me at: 19:51 (Left Asix Deviation) General ECG Interpretation: Sinus Rhythm, Normal Rate, Normal Intervals, No acute ischemic changes ED Treatment Course - LABORATORY CBC & Chemistry Diagram: 09/07/17 18:26 09/07/17 18:26 Medical Decision Making - Medical Decision Making 09/07/17 18:43 The patient is a 67 year old female with a history of Anemia, DM, CAD, HTN, HLD who presents for evaluation of SOB, generalized weakness. Differential includes but is not limited to: Anemia, ACS, GI Bleed, Infectious, Metabolic Derangement. Given the patient's history and physical exam, it is likely the patient's symptoms are due to symptomatic anemia. We will obtain a cbc, cmp, coags, type and screen, stool for occult blood, ekg to evaluate further. We will continue to closely monitor and reassess while here in the ED. 09/07/17 19:45 CBC demonstrates HGB of 7.3. CMP, coags are unremarkable. The patient will be transfused with 2 units of PRBC. We discussed the case with the admitting team who accepted the patient for admission. *DC/Admit/Observation/Transfer Diagnosis at time of Disposition: SOB (shortness of breath) Anemia Qualifiers: Anemia type: unspecified type Qualified Code(s): D64.9 - Anemia, unspecified - Discharge Dispostion Condition at time of disposition: Stable Decision to Admit order: Yes - Referrals Referrals: Russell Philip MD [Primary Care Provider] - - Patient Instructions - Post Discharge Activity
[2017-09-07 18:44] LABS: BASO % 0.4 % (0-2.0); EOS % 2.7 % (0-4.5); HEMATOCRIT 22.2 % (32.4-45.2); HEMOGLOBIN 7.3 GM/dL (10.7-15.3); LYMPH % 18.4 % (8-40); MCH 27.9 pg (25.7-33.7); MCHC 32.9 g/dl (32.0-36.0); MEAN CELL VOLUME 84.8 fl (80-96); MEAN PLT VOLUME 10.2 fl (7.5-11.1); MONO % 7.7 % (3.8-10.2); NEUT % 70.8 % (42.8-82.8); PLATELET COUNT 258 K/MM3 (134-434); RBC 2.61 M/mm3 (3.60-5.2); RDW 18.7 % (11.6-15.6); WHITE BLOOD COUNT 7.5 K/mm3 (4.0-10.0)
--- NOTE | 2017-09-07 19:09 | PDOC ---
Attending Attestation - [facility] HPI: 09/07/17 19:17 The patient is a 67 year old female, with a significant past medical history of anemia, diabetes, hypertension, hyperlipidemia, CO, CAD, and asthma, who presents to the emergency department, who presents to the emergency department with worsening shortness of breath and generalized weakness over the past 3 weeks. Per family, who is assisting in providing the history at bedside, the patient has been experiencing SOB, lightheadedness, generalized weakness, and skin pallor over the past 3 weeks. Per family, patient was evaluated by her PCP , Dr. Philip, where she had blood work revealing a hemoglobin of 7.4, and he recommended the patient come to the ED for a blood transfusion. Per records, patient has required multiple blood transfusions in the past, her last being in May 2017 for symptomatic anemia. Patient has been evaluated by GI in the past , where she had an endoscopy and colonoscopy, both which were negative. Patient denies any recent fever or chills. She denies any abdominal pain, nausea, vomiting, diarrhea, constipation, melena, hematochezia, or hemoptysis. She denies any dysuria, hematuria, frequency, or urgency. She denies any recent travel or sick contacts. Patient is on Aspirin and Plavix. Allergies: Penicillins Past Surgical History: Knee surgery, Angiocath card stents x2 Social History: Non smoker. No ETOH or recreational drug use. PCP: Dr. Philip - Physicial Exam PE: 09/07/17 19:22 Constitutional: Awake, alert, oriented. No acute distress. Head: Normocephalic. Atraumatic Eyes: PERRL. EOMI. Pale conjunctivae and mucous membranes ENT: Mucous membranes are moist and intact. Posterior pharynx without exudates or erythema. Uvula midline. Neck: Supple. Full ROM. No lymphadenopathy. Cardiovascular: Regular rate. Regular rhythm. S1, S2 regular. Distal pulses are 2+ and symmetric. Pulmonary/Chest: Diminished breath sounds bilaterally. No wheezing, rales or rhonchi. Abdominal: Morbidly obese. Soft and non-distended. There is no tenderness. No rebound, guarding or rigidity. No organomegaly. No palpable masses. Good bowel sounds. Rectal: Defer to resident note. Back: No CVA tenderness. Musculoskeletal: No edema. No cyanosis. No clubbing. Full range of motion in all extremities. No calf tenderness. Radial/pedal pulses are intact and 2+ bilaterally Skin: Diffuse skin pallor Skin is warm and dry. No petechiae. No purpura. Neurological: Alert and oriented to person, place, and time. Cranial nerves II -XII are grossly intact. Normal speech. Strength is grossly symmetric. No sensory deficits. Psychiatric: Good eye contact. Normal interaction, affect and behavior. - Medical Decision Making 09/07/17 19:17 Documentation prepared by Thuan Colmenares, acting as medical supply technician for Lillie Melo DO. <Thuan Colmenares - Last Filed: 09/07/17 19:22> - Resident Resident Name: Tony Mukherjee - ED Attending Attestation I have performed the following: I have examined & evaluated the patient, The case was reviewed & discussed with the resident, I agree w/resident's findings & plan, Exceptions are as noted - Medical Decision Making 09/07/17 19:07 I, Dr. Lillie Melo DO, attest that this document has been prepared under my direction and personally reviewed by me in its entirety. I further attest, that it accurately reflects all work, treatment, procedures and medical decision -making performed by me. 09/07/17 19:31 67yo female with outpt labs yesterday that show a hgb of 7.4 -cad with stents in March -hx of low hgb and was transfused 4 units in may -egd/colo by Dr. Alvarado in June -denies blood loss - no epistaxis, no gum bleeding, no blood in stool or urine, no vomiting blood -c/o feeling sob and lightheaded when she walks around -denies cp -no abd pain -will repeat labs 09/07/17 19:33 hgb 7.3 - given cad with stents will transfuse 2 units stool for heme pending 09/07/17 19:[address] Philip - covered by Dr. Jacobson - at night covered by [facility] resident discussed the case with JUAN DANIEL Espinoza - accepts pt to service <Lillie Melo - Last Filed: 09/07/17 19:45> Heart Score/ECG Review - ECG Intrepretation Comment:: 09/07/17 19:08 sinus at 82, L axis, lvh, poor r wave progression, t wave inversions I avl, no juan/std <Lillie Melo - Last Filed: 09/07/17 19:45>
[2017-09-07 19:11] LABS: ALBUMIN 2.9 g/dl (3.4-5.0); ANION GAP 8 (8-16); BILIRUBIN,TOTAL 0.4 mg/dL (0.2-1.0); BLOOD UREA NITROGEN 23 mg/dL (7-18); CALCIUM 8.5 mg/dL (8.5-10.1); CHLORIDE 105 mmol/L (98-107); CO2 27 mmol/L (21-32); CREATININE 1.4 mg/dL (0.55-1.02); GLUCOSE,RANDOM 257 mg/dL (74-106); POTASSIUM 4.6 mmol/L (3.5-5.1); SGOT/AST 10 U/L (15-37); SGPT/ALT 20 U/L (12-78); SODIUM 140 mmol/L (136-145); TOT PROT 6.6 g/dl (6.4-8.2)
[2017-09-07 19:14] LABS: ALK PHOS 86 U/L (45-117)
[2017-09-07 19:18] LABS: PROTHROMBIN TIME (PATIENT) 11.3 SEC (9.7-13.0)
--- NOTE | 2017-09-07 19:44 | HP ---
Admitting History and Physical - Primary Care Physician PCP: Russell Philip - Admission Chief Complaint: SOB, Weakness History of Present Illness: 67 y/o woman with PMH of: Anemia (last blood transfusion, July 2017), CAD (stent) , HTN, HLD, DM. Who presents to the ED with her family with increased SOB, VASQUEZ, fatigue, and weakness x 1 week. Patient's son reports that his mother has been very pale, weak and SOB. Patient's last admission 06/19/17-06/24/17- SOB, Anemia.Patient has been evaluated by GI in the past, where she had an endoscopy and colonoscopy, both which were negative. Patient's son also reports having intermittent CP non-radiating- now resolved. Patient reports having lower leg swelling. Patient reports after being discharged from her last admission, she has had dry itching skin. Patient denies fever, cough, CP, palpitations, AP, vomiting, diarrhe, dysuria. History Source: Patient, Family Member, Significant Other Limitations to Obtaining History: Language Barrier - Past Medical History Cardiovascular: Yes: CAD (S/P STENTING), HTN, Hyperlipdemia Pulmonary: Yes: Asthma, Sleep Apnea Gastrointestinal: Yes: GERD Musculoskeletal: Yes: Osteoarthritis Endocrine: Yes: Diabetes Mellitus - Smoking History Smoking history: Never smoked Have you smoked in the past 12 months: No Aproximately how many cigarettes per day: 0 - Alcohol/Substance Use Hx Alcohol Use: No - Social History Usual Living Arrangement: Yes: With Child ADL: Family Assistance History of Recent Travel: No Home Medications - Allergies Allergies/Adverse Reactions: Allergies Allergy/AdvReac Type Severity Reaction Status Date / Time Penicillins Allergy Difficulty Verified 09/07/17 18:13 Breathing - Home Medications Home Medications: Ambulatory Orders Aspirin [ASA -] 81 mg PO DAILY 08/02/12 Mometasone Furoate [Asmanex 220Mcg -] 2 inh IH DAILY PRN 08/02/12 Atorvastatin Ca [Lipitor] 40 mg PO HS #30 tablet 01/02/15 Clopidogrel Bisulfate [Plavix -] 75 mg PO DAILY 06/19/17 Metoprolol Succinate [Toprol Xl] 25 mg PO DAILY 06/19/17 Furosemide [Lasix -] 40 mg PO DAILY #30 tablet 06/24/17 Insulin (Levemir) [Levemir Vial] 45 units SQ BID@0700,2200 #0 ml 06/24/17 Insulin (Levemir) [Levemir Vial] 50 units SQ BID@0700,2200 #0 ml 06/24/17 Family Disease History - Family Disease History Family Disease History: Diabetes: Mother, Sister Review of Systems - Review of Systems Constitutional: reports: No Symptoms Eyes: reports: Blurred Vision HENT: reports: No Symptoms Neck: reports: No Symptoms Cardiovascular: reports: Shortness of Breath Respiratory: reports: SOB, SOB on Exertion Gastrointestinal: reports: No Symptoms Genitourinary: reports: No Symptoms Breasts: reports: No Symptoms Reported Musculoskeletal: reports: No Symptoms Integumentary: reports: Pruritis (upper back, L- anterior leg) Neurological: reports: No Symptoms Endocrine: reports: No Symptoms Hematology/Lymphatic: reports: No Symptoms Psychiatric: reports: No Symptoms Physical Examination Vital Signs: Vital Signs Temperature 97.8 F 09/07/17 18:10 Pulse Rate 81 09/07/17 18:10 Respiratory Rate 23 09/07/17 18:10 Blood Pressure 124/85 09/07/17 18:10 O2 Sat by Pulse Oximetry (%) 99 09/07/17 18:10 Constitutional: Yes: Well Nourished, No Distress, Calm, Obese Eyes: Yes: WNL, Conjunctiva Clear (pale), EOM Intact, PERRL HENT: Yes: WNL, Atraumatic, Normocephalic Neck: Yes: WNL, Supple, Trachea Midline Cardiovascular: Yes: WNL, Regular Rate and Rhythm, S1, S2 Respiratory: Yes: WNL, Regular, CTA Bilaterally Gastrointestinal: Yes: WNL, Normal Bowel Sounds, Soft, Abdomen, Obese ...Rectal Exam: Yes: Deferred Renal/: Yes: WNL Musculoskeletal: Yes: Other (erythematous macular rash noted to upper back) Extremities: Yes: WNL Peripheral Pulses WNL: Yes Integumentary: Yes: Other (superficial scabs, scratch day to anterior LLE) Neurological: Yes: WNL, Alert, Oriented, Cran Nerves II-XII Intact ...Motor Strength: WNL Psychiatric: Yes: WNL, Alert, Oriented Labs: CBC, BMP 09/07/17 18:26 09/07/17 18:26 Imaging - Results Chest X-ray: Image Reviewed EKG: Image Reviewed (NSR 82 bpm, left ventricular hypertrophy with repolarization abnormality QT/QTc 386,450) Problem List - Problems (1) Symptomatic anemia Code(s): D64.9 - ANEMIA, UNSPECIFIED (2) Shortness of breath Code(s): R06.02 - SHORTNESS OF BREATH (3) CAD (coronary artery disease) Code(s): I25.10 - ATHSCL HEART DISEASE OF [place] CORONARY ARTERY W/O ANG PCTRS (4) Diabetes mellitus with hyperglycemia, with long-term current use of insulin Code(s): E11.65 - TYPE 2 DIABETES MELLITUS WITH HYPERGLYCEMIA; Z79.4 - RETIREMENT (CURRENT) USE OF INSULIN (5) HLD (hyperlipidemia) Code(s): E78.5 - HYPERLIPIDEMIA, UNSPECIFIED (6) Hypertension Code(s): I10 - ESSENTIAL (PRIMARY) HYPERTENSION (7) Thyroid enlarged Code(s): E04.9 - NONTOXIC GOITER, UNSPECIFIED Assessment/Plan This is a 67 y/o woman PMH of: HTN, HLD, CAD s/p stents x2, DM, Anemia (blood transfusion 05/2017). Placed in Observation for Symptomatic Anemia, SOB. Plan: 1. Symptomatic Anemia - Hgb 7.3 - PRBC x2-pending - Lasix between transfusions - CBC in am - Stool occult--pending - Chest Xray-pending - Consider Hematology consult - Monitor vitals 2. SOB - Likely secondary to Anemia - Chest Xray-pending - O2 3. CAD - s/p stents x2 - Continue home meds - EKG- reviewed - Trop I- neg 4. Hypertension - stable - Continue home med - Monitor renal function 5. Diabetes Mellitus - uncontrolled - BGMs - ISS - Continue home med 6. Hyperlipidemia - no current med - Low Cholesterol Diet 7. FEN - PO Fluids as tolerated - Replete lytes prn - Low Na, Low Cholesterol, 1800 Ada Diet 8. DVT ppx - OOB - SCDs - Consider AC, if LOS > 48 hrs Code Status: Full Code Dispo: Observation Visit type - Emergency Visit Emergency Visit: Yes ED Registration Date: 09/07/17 Care time: The patient presented to the Emergency Department on the above date and was hospitalized for further evaluation of their emergent condition. - New Patient This patient is new to me today: Yes Date on this admission: 09/07/17 - Critical Care Critical Care patient: No Hospitalist Screening - Colonoscopy Questionnaire Colonoscopy Questionnaire: Colonoscopy Questionnaire - Patient: 50 - 75 years old and never had a screening colonoscopy: No History of colon or rectal polyps, or CA: No History of IBD, Crohn's disease or UC: No History of abdominal radiation therapy as a child: No - Relative: 1 with colon or rectal CA, or polyps at age 60 or younger: No Colon or rectal CA diagnosed at age 45 or younger: No Multiple relatives with colon or rectal CA: No - Outcome: Screening Result: Negative Screen
[2017-09-07] MEDS ORDERED: FUROSEMIDE 40 MG/4 ML INJECTABLE VIAL IVPUSH ONE (23:30)
--- NOTE | 2017-09-07 23:41 | CONSULT ---
Consult Consult Specialty:: endocrine Referred by:: dr.rabadi zarate Reason for Consultation:: diabetes mellitus - History of Present Illness Chief Complaint: high sugars very weak History of Present Illness: 67 y/o woman with PMH of: Anemia (last blood transfusion, July 2017), CAD (stent) , HTN, HLD, DM. Who presents to the ED with her family with increased SOB, VASQUEZ, fatigue, and weakness x 1 week. Patient's son reports that his mother has been very pale, weak and SOB. Patient's last admission 06/19/17-06/24/17- SOB, Anemia. Patient;s son also reports having intermittent CP non-radiating- now resolved. Patient reports having lower leg edema,and pain,she denies dark stools ,or hematuria - Past Medical History Cardio/Vascular: Yes: CAD (S/P STENTING), HTN, Hyperlipdemia Pulmonary: Yes: Asthma, Sleep Apnea Gastrointestinal: Yes: GERD Musculoskeletal: Yes: Osteoarthritis Endocrine: Yes: Diabetes Mellitus - Alcohol/Substance Use Hx Alcohol Use: No - Smoking History Smoking history: Never smoked Have you smoked in the past 12 months: No Aproximately how many cigarettes per day: 0 - Social History ADL: Family Assistance History of Recent Travel: No Home Medications - Allergies Allergies/Adverse Reactions: Allergies Allergy/AdvReac Type Severity Reaction Status Date / Time Penicillins Allergy Difficulty Verified 09/07/17 18:13 Breathing - Home Medications Home Medications: Ambulatory Orders Aspirin [ASA -] 81 mg PO DAILY 08/02/12 Mometasone Furoate [Asmanex 220Mcg -] 2 inh IH DAILY PRN 08/02/12 Atorvastatin Ca [Lipitor] 40 mg PO HS #30 tablet 01/02/15 Clopidogrel Bisulfate [Plavix -] 75 mg PO DAILY 06/19/17 Metoprolol Succinate [Toprol Xl] 25 mg PO DAILY 06/19/17 Furosemide [Lasix -] 40 mg PO DAILY #30 tablet 06/24/17 Insulin (Levemir) [Levemir Vial] 45 units SQ BID@0700,2200 #0 ml 06/24/17 Insulin (Levemir) [Levemir Vial] 50 units SQ BID@0700,2200 #0 ml 06/24/17 Family Disease History - Family Disease History Family Disease History: Diabetes: Mother, Sister Review of Systems - Review of Systems Constitutional: reports: Lethargy, Weakness Eyes: reports: Blurred Vision HENT: reports: No Symptoms Neck: reports: No Symptoms Cardiovascular: reports: Palpitations, Shortness of Breath Respiratory: reports: Exercise Intolerance, SOB, SOB on Exertion Gastrointestinal: reports: Bloating, Constipation Musculoskeletal: reports: Joint Swelling, Muscle Pain, Muscle Cramps Integumentary: reports: No Symptoms Neurological: reports: Unsteady Gait, Weakness Endocrine: reports: Intolerance to Cold, Unexplained Weight Gain Physical Exam Vital Signs: Vital Signs Temperature 98 F 09/07/17 21:00 Pulse Rate 79 09/07/17 21:00 Respiratory Rate 18 09/07/17 21:00 Blood Pressure 159/72 09/07/17 21:00 O2 Sat by Pulse Oximetry (%) 100 09/07/17 20:04 Constitutional: Yes: Anxious Eyes: Yes: EOM Intact HENT: Yes: Normocephalic Neck: Yes: Trachea Midline Cardiovascular: Yes: Regular Rate and Rhythm Respiratory: Yes: CTA Bilaterally Gastrointestinal: Yes: Normal Bowel Sounds, Abdomen, Obese ...Rectal Exam: Yes: Guaiac Negative Renal/: Yes: WNL Breast(s): Yes: WNL Musculoskeletal: Yes: Back Pain, Joint Swelling, Muscle Pain, Muscle Weakness Neurological: Yes: Alert, Oriented Labs: CBC, BMP 09/07/17 18:26 09/07/17 18:26 Problem List - Problems (1) Diabetes mellitus with hyperglycemia Code(s): E11.65 - TYPE 2 DIABETES MELLITUS WITH HYPERGLYCEMIA (2) Diabetes mellitus with hyperglycemia, with long-term current use of insulin Code(s): E11.65 - TYPE 2 DIABETES MELLITUS WITH HYPERGLYCEMIA; 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 (3) Diabetes mellitus with hyperglycemia Code(s): E11.65 - TYPE 2 DIABETES MELLITUS WITH HYPERGLYCEMIA (4) Shortness of breath Code(s): R06.02 - SHORTNESS OF BREATH (5) HORACE (acute kidney injury) Code(s): N17.9 - ACUTE KIDNEY FAILURE, UNSPECIFIED (6) Acute hypoxemic respiratory failure Code(s): J96.01 - ACUTE RESPIRATORY FAILURE WITH HYPOXIA (7) Atypical chest pain Code(s): R07.89 - OTHER CHEST PAIN (8) CAD (coronary artery disease) Code(s): I25.10 - ATHSCL HEART DISEASE OF [place] CORONARY ARTERY W/O ANG PCTRS (9) Chest pain Code(s): R07.9 - CHEST PAIN, UNSPECIFIED (10) Constipation Code(s): K59.00 - CONSTIPATION, UNSPECIFIED Assessment/Plan Current Active Problems Anemia (Acute) Shortness of breath (Acute) cad coronary syndrome htn ashd hyperlipidemia morbid obesity iddm hyperglycemia uncontrolled diabetes diet non compliant Abnormal Lab Results 09/07/17 09/07/17 09/07/17 18:26 18:26 18:26 RBC 2.61 L D Hgb 7.3 L D Hct 22.2 L D RDW 18.7 H BUN 23 H Creatinine 1.4 H Random Glucose 257 H AST 10 L Albumin 2.9 L Crossmatch See Detail Laboratory Results - last 24 hr 09/07/17 09/07/17 09/07/17 18:26 18:26 18:26 WBC 7.5 RBC 2.61 L D Hgb 7.3 L D Hct 22.2 L D MCV 84.8 MCH 27.9 MCHC 32.9 RDW 18.7 H Plt Count 258 MPV 10.2 Absolute Neuts (auto) 5.3 Neutrophils % 70.8 Lymphocytes % 18.4 D Monocytes % 7.7 Eosinophils % 2.7 Basophils % 0.4 Nucleated RBC % 0 PT with INR 11.30 INR 1.00 Sodium 140 Potassium 4.6 Chloride 105 Carbon Dioxide 27 Anion Gap 8 BUN 23 H Creatinine 1.4 H Creat Clearance w eGFR 37.39 Random Glucose 257 H Calcium 8.5 Total Bilirubin 0.4 D AST 10 L ALT 20 Alkaline Phosphatase 86 Creatine Kinase 75 Troponin I 0.04 Total Protein 6.6 Albumin 2.9 L Stool Occult Blood Blood Type Antibody Screen Crossmatch 09/07/17 09/07/17 18:26 18:30 WBC RBC Hgb Hct MCV MCH MCHC RDW Plt Count MPV Absolute Neuts (auto) Neutrophils % Lymphocytes % Monocytes % Eosinophils % Basophils % Nucleated RBC % PT with INR INR Sodium Potassium Chloride Carbon Dioxide Anion Gap BUN Creatinine Creat Clearance w eGFR Random Glucose Calcium Total Bilirubin AST ALT Alkaline Phosphatase Creatine Kinase Troponin I Total Protein Albumin Stool Occult Blood Negative Blood Type O POSITIVE Antibody Screen Negative Crossmatch See Detail plan: bgm qid novolog insulin doses levemir 50 units am levemir 40units hs gi consult
[2017-09-08 03:38] LABS: URINE APPEARANCE CLEAR; URINE BILIRUBIN NEGATIVE (<2.0 mg/dL); URINE COLOR STRAW; URINE GLUCOSE (UA) 1+ (NEGATIVE); URINE KETONE NEGATIVE (NEGATIVE); URINE NITRITE NEGATIVE (NEGATIVE); URINE UROBILINOGEN NEGATIVE mg/dL (0.2-1.0)
[2017-09-08 03:43] LABS: URINE LEUK ESTERASE 2+ (NEGATIVE); URINE PROTEIN 2+ (NEGATIVE)
[2017-09-08 03:46] LABS: EPI CELLS RARE /HPF (FEW); URINE BACTERIA RARE /hpf (NONE SEEN)
[2017-09-08] MEDS: INSULIN SLIDING SCALE (NOVOLOG) 1 VIAL SQ SCH ×4 (06:34→22:36)
[2017-09-08] MEDS ORDERED: INSULIN (NOVOLOG) ASPART 100 UNITS/ML 10ML VIAL ONE ×2 (06:52→17:27)
[2017-09-08] MEDS ORDERED: INSULIN (LEVEMIR) 100 UNITS/ML UNITS SQ SCH ×2 (07:00→22:00)
[2017-09-08] MEDS: ASPIRIN COATED 81 MG TABLET.EC PO SCH (09:11)
[2017-09-08] MEDS: CLOPIDOGREL BISULFATE 75 MG TABLET (FP) PO SCH (09:11)
[2017-09-08] MEDS: LOSARTAN POTASSIUM 50 MG TABLET (FP) PO SCH (09:11)
--- NOTE | 2017-09-08 09:44 | EKG ---
Test Reason : Blood Pressure : / mmHG Vent. Rate : 082 BPM Atrial Rate : 082 BPM P-R Int : 158 ms QRS Dur : 110 ms QT Int : 386 ms P-R-T Axes : 032 -42 115 degrees QTc Int : 450 ms NORMAL SINUS RHYTHM LEFT AXIS DEVIATION LEFT VENTRICULAR HYPERTROPHY WITH REPOLARIZATION ABNORMALITY NONSPECIFIC T WAVE ABNORMALITY ABNORMAL ECG WHEN COMPARED WITH ECG OF 20-JUN-2017 10:04, NO SIGNIFICANT CHANGE WAS FOUND Confirmed by JAMES VERA MD ([id number]) on 09/08/2017 9:44:02 AM Referred By: Confirmed By:JAMES VERA MD
[2017-09-08 11:04] LABS: BASO % 0.6 % (0-2.0); EOS % 3.3 % (0-4.5); HEMATOCRIT 27.3 % (32.4-45.2); HEMOGLOBIN 9.1 GM/dL (10.7-15.3); LYMPH % 18.8 % (8-40); MCH 27.6 pg (25.7-33.7); MCHC 33.3 g/dl (32.0-36.0); MEAN CELL VOLUME 82.9 fl (80-96); MEAN PLT VOLUME 10.3 fl (7.5-11.1); NEUT % 68.3 % (42.8-82.8); PLATELET COUNT 224 K/MM3 (134-434); RDW 18.5 % (11.6-15.6); WHITE BLOOD COUNT 8.2 K/mm3 (4.0-10.0)
[2017-09-08 11:27] LABS: ANION GAP 6 (8-16); BLOOD UREA NITROGEN 17 mg/dL (7-18); CALCIUM 8.9 mg/dL (8.5-10.1); CHLORIDE 105 mmol/L (98-107); CO2 30 mmol/L (21-32); CREATININE 0.9 mg/dL (0.55-1.02); GLUCOSE,RANDOM 165 mg/dL (74-106); MAGNESIUM 2.2 mg/dL (1.8-2.4); PHOSPHOROUS 4.2 mg/dL (2.5-4.9); POTASSIUM 4.6 mmol/L (3.5-5.1); SODIUM 141 mmol/L (136-145)
--- NOTE | 2017-09-08 11:41 | PN ---
Progress Note, Physician Chief Complaint: Sob Weakness Anemia History of Present Illness: NAD in bed c/o intermittent left midaxillary chest pain, no SOB, weakness improved received prbc this admission - Current Medication List Current Medications: Active Medications Aspirin (Ecotrin -) 81 mg PO DAILY [facility] Last Admin: 09/08/17 09:11 Dose: 81 mg Atorvastatin Calcium (Lipitor -) 80 mg PO HS [facility] Clopidogrel Bisulfate (Plavix -) 75 mg PO DAILY [facility] Last Admin: 09/08/17 09:11 Dose: 75 mg Insulin Aspart (Novolog Vial Sliding Scale -) 1 vial SQ ACHS [facility]; Protocol Last Admin: 09/08/17 06:34 Dose: Not Given Insulin Detemir (Levemir Vial) 40 units SQ HS [facility] Insulin Detemir (Levemir Vial) 50 units SQ AM [facility] Last Admin: 09/08/17 06:34 Dose: 35 units Losartan Potassium (Cozaar -) 100 mg PO DAILY [facility] Last Admin: 09/08/17 09:11 Dose: 100 mg Metoprolol Succinate (Toprol Xl -) 50 mg PO DAILY [facility] Last Admin: 09/08/17 09:11 Dose: 50 mg - Objective Vital Signs: Vital Signs Temperature 98.0 F 09/08/17 10:00 Pulse Rate 70 09/08/17 10:00 Respiratory Rate 20 09/08/17 10:00 Blood Pressure 144/80 09/08/17 10:00 O2 Sat by Pulse Oximetry (%) 98 09/08/17 03:42 Constitutional: Yes: Well Nourished, No Distress, Calm Cardiovascular: Yes: Regular Rate and Rhythm Respiratory: Yes: Regular Gastrointestinal: Yes: Normal Bowel Sounds, Soft, Abdomen, Obese Musculoskeletal: Yes: Muscle Weakness Edema: No Peripheral Pulses WNL: Yes Neurological: Yes: Alert, Oriented Psychiatric: Yes: Alert, Oriented Labs: CBC, BMP 09/08/17 09:40 INR, PTT INR 1.00 (0.82-1.09) 09/07/17 18:26 Problem List - Problems (1) Anemia Assessment/Plan: -Received 2 uunits of PRBC -Stool Guaiac negative -thyroid profile, folate and B12 normal -Iron profile pending -hematology consult -monitor H/H Code(s): D64.9 - ANEMIA, UNSPECIFIED Qualifiers: Anemia type: unspecified type Qualified Code(s): D64.9 - Anemia, unspecified (2) Shortness of breath Assessment/Plan: -Improved -CXR-may be CHF -CT Chest -Add BNP to labs -Pulmonary consult -R/O PH Code(s): R06.02 - SHORTNESS OF BREATH (3) Atypical chest pain Assessment/Plan: -CT Chest -Cardiac workup negative Code(s): R07.89 - OTHER CHEST PAIN (4) Diabetes mellitus, insulin dependent (IDDM), uncontrolled Assessment/Plan: -Diabetic diet -BGM AC HS -insulin novolog and Levemir -Endocrinology consult -RD consult -repeat A1c Code(s): E10.65 - TYPE 1 DIABETES MELLITUS WITH HYPERGLYCEMIA Qualifiers: Chronic kidney disease stage: unspecified stage Assessment/Plan see problem list DVT prophylaxis
[2017-09-08] MEDS ORDERED: SIMETHICONE 40 MG/0.6 ML BOTTLE PO PRN (11:45)
[2017-09-08] MEDS ORDERED: PT OWN MED DRAWER 7, Y5N ONE (17:27)
[2017-09-08] MEDS: INSULIN (LEVEMIR) 100 UNITS/ML UNITS SQ SCH (22:35)
[2017-09-08] MEDS: HEPARIN NA (PORCINE) 5,000 UNITS/ML 1ML VIAL SQ SCH (22:35)
[2017-09-08] MEDS: ATORVASTATIN CA 80 MG TABLET (FP) PO SCH (22:36)
[2017-09-09] MEDS: INSULIN (LEVEMIR) 100 UNITS/ML UNITS SQ SCH ×2 (06:56→22:16)
[2017-09-09] MEDS: INSULIN SLIDING SCALE (NOVOLOG) 1 VIAL SQ SCH ×4 (06:56→22:16)
[2017-09-09 08:09] LABS: BASO % 0.9 % (0-2.0); EOS % 3.4 % (0-4.5); HEMATOCRIT 26.5 % (32.4-45.2); HEMOGLOBIN 8.8 GM/dL (10.7-15.3); MCH 27.8 pg (25.7-33.7); MCHC 33.2 g/dl (32.0-36.0); MEAN CELL VOLUME 83.6 fl (80-96); MEAN PLT VOLUME 10.7 fl (7.5-11.1); MONO % 8.4 % (3.8-10.2); NEUT % 67.3 % (42.8-82.8); PLATELET COUNT 224 K/MM3 (134-434); RBC 3.17 M/mm3 (3.60-5.2); RDW 18.3 % (11.6-15.6); WHITE BLOOD COUNT 7.1 K/mm3 (4.0-10.0)
[2017-09-09 08:43] LABS: CHLORIDE 107 mmol/L (98-107); POTASSIUM 4.5 mmol/L (3.5-5.1); SODIUM 141 mmol/L (136-145)
[2017-09-09 08:50] LABS: ALBUMIN 2.7 g/dl (3.4-5.0); ALK PHOS 82 U/L (45-117); ANION GAP 7 (8-16); BILIRUBIN,TOTAL 0.5 mg/dL (0.2-1.0); BLOOD UREA NITROGEN 20 mg/dL (7-18); CALCIUM 8.6 mg/dL (8.5-10.1); CO2 27 mmol/L (21-32); CREATININE 0.8 mg/dL (0.55-1.02); GLUCOSE,RANDOM 155 mg/dL (74-106); SGOT/AST 11 U/L (15-37); SGPT/ALT 18 U/L (12-78); TOT PROT 6.3 g/dl (6.4-8.2)
--- NOTE | 2017-09-09 09:43 | CON.PULM ---
Consult Consult Specialty:: PULMONARY Referred by:: LUCILA Reason for Consultation:: SOB - History of Present Illness Chief Complaint: SOB NOW IMPROVED POST TRANSFUSION History of Present Illness: The patient is a 67 year old female nonsmoker with a history of Anemia, DM, CAD , HTN, HLD who presents for evaluation of SOB, generalized weakness. The patient was accompanied by family who provided the history. They note that the patient has been experiencing worsening SOB, lightheadedness and generalized weakness over the past 3 weeks with noted pallor. They presented to the patient 's PCP Dr. Philip who noted the patient's HGB to be 7.4 and sent the patient in for admission and blood transfusion. The patient has required transfusion in the past for symptomatic anemia most recent of which in May 2017. She has been evaluated by GI in the past with a negative endoscopy and colonoscopy . The patient otherwise denies fevers, chills, cough, chest pain, nausea, vomiting, abdominal pain, or changes with urination or bowel movements. 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 No: AFIB Pulmonary: Yes: Asthma, Sleep Apnea Gastrointestinal: Yes: GERD. No: Ascites Hepatobiliary: No: Cirrhosis Renal/: No: Renal Failure Reproductive: Yes: Postmenopausal ...: No Heme/Onc: Yes: Anemia Psych: No: Addictions Musculoskeletal: Yes: Osteoarthritis Endocrine: Yes: Diabetes Mellitus - Alcohol/Substance Use Hx Alcohol Use: No History of Substance Use: reports: None - Smoking History Smoking history: Never smoked Have you smoked in the past 12 months: No Aproximately how many cigarettes per day: 0 - Social History ADL: Family Assistance Place of : Other History of Recent Travel: No Home Medications - Allergies Allergies/Adverse Reactions: Allergies Allergy/AdvReac Type Severity Reaction Status Date / Time Penicillins Allergy Difficulty Verified 09/07/17 18:13 Breathing - Home Medications Home Medications: Ambulatory Orders Aspirin [ASA -] 81 mg PO DAILY 08/02/12 Mometasone Furoate [Asmanex 220Mcg -] 2 inh IH DAILY PRN 08/02/12 Atorvastatin Ca [Lipitor] 40 mg PO HS #30 tablet 01/02/15 Clopidogrel Bisulfate [Plavix -] 75 mg PO DAILY 06/19/17 Metoprolol Succinate [Toprol Xl] 25 mg PO DAILY 06/19/17 Furosemide [Lasix -] 40 mg PO DAILY #30 tablet 06/24/17 Insulin (Levemir) [Levemir Vial] 45 units SQ BID@0700,2200 #0 ml 06/24/17 Insulin (Levemir) [Levemir Vial] 50 units SQ BID@0700,2200 #0 ml 06/24/17 Family Disease History - Family Disease History Family Disease History: Diabetes: Mother, Sister Review of Systems Unable to obtain ROS, reason: unable Physical Exam Vital Sings: Vital Signs Temperature 98.6 F 09/09/17 06:00 Pulse Rate 67 09/09/17 06:00 Respiratory Rate 18 09/09/17 06:38 Blood Pressure 148/66 09/09/17 06:00 O2 Sat by Pulse Oximetry (%) 97 09/09/17 06:38 Constitutional: Yes: Calm Eyes: Yes: EOM Intact HENT: Yes: Normocephalic Neck: Yes: Trachea Midline Cardiovascular: Yes: Regular Rate and Rhythm Respiratory: Yes: CTA Bilaterally ...Inspection: Yes: WNL Gastrointestinal: Yes: Normal Bowel Sounds, Abdomen, Obese Renal/: Yes: WNL Breast(s): Yes: WNL Musculoskeletal: Yes: WNL Extremities: Yes: WNL Edema: No Neurological: Yes: Alert Labs: CBC, BMP 09/09/17 06:30 09/09/17 06:30 rest reviewed Imaging - Results Chest X-ray: Report Reviewed, Image Reviewed EKG: Report Reviewed, Image Reviewed Problem List - Problems (1) Anemia Code(s): D64.9 - ANEMIA, UNSPECIFIED Qualifiers: Anemia type: unspecified type Qualified Code(s): D64.9 - Anemia, unspecified (2) Diabetes mellitus with hyperglycemia Code(s): E11.65 - TYPE 2 DIABETES MELLITUS WITH HYPERGLYCEMIA (3) Shortness of breath Code(s): R06.02 - SHORTNESS OF BREATH Assessment/Plan ANEMIA UNKNOWN ETIOLOGY/LIKELY CAUSE OF DYSPNEA REMAINS ON ASA/PLAVIX EGD/COLONOSCOPY NEGATIVE IN PAST UNKNOWN IF SMALL BOWEL CAPSULAR WAS PERFORMED IN PAST CT FINDINGS ARE MINIMAL AND LIKELY NOT THE CAUSE OF THE DYSPNEA (SPO2 97% ON R/A ) WHICH HAS NOW RESOLVED POST TRANSFUSION SUGGEST GI MARINA HAYNES MD
[2017-09-09] MEDS: CLOPIDOGREL BISULFATE 75 MG TABLET (FP) PO SCH (09:58)
[2017-09-09] MEDS: HEPARIN NA (PORCINE) 5,000 UNITS/ML 1ML VIAL SQ SCH ×2 (09:58→22:15)
[2017-09-09] MEDS: ASPIRIN COATED 81 MG TABLET.EC PO SCH (09:59)
[2017-09-09] MEDS: LOSARTAN POTASSIUM 50 MG TABLET (FP) PO SCH (09:59)
[2017-09-09] MEDS ORDERED: INSULIN (NOVOLOG) ASPART 100 UNITS/ML 10ML VIAL ONE (11:15)
--- NOTE | 2017-09-09 12:51 | PN ---
Progress Note, Physician Chief Complaint: NOTES AND EVENTS REVIEWED DISCUSSED WITH FAMILY AND PATIENT BEDSIDE OVERALL PLAN PATIENT TIRED/WEAK/VASQUEZ - Current Medication List Current Medications: Active Medications Aspirin (Ecotrin -) 81 mg PO DAILY [facility] Last Admin: 09/09/17 09:59 Dose: 81 mg Atorvastatin Calcium (Lipitor -) 80 mg PO HS [facility] Last Admin: 09/08/17 22:36 Dose: 80 mg Clopidogrel Bisulfate (Plavix -) 75 mg PO DAILY [facility] Last Admin: 09/09/17 09:58 Dose: 75 mg Heparin Sodium (Porcine) (Heparin -) 5,000 unit SQ BID [facility] Last Admin: 09/09/17 09:58 Dose: 5,000 unit Insulin Aspart (Novolog Vial Sliding Scale -) 1 vial SQ [facility]; Protocol Last Admin: 09/09/17 11:21 Dose: 10 units Insulin Detemir (Levemir Vial) 35 units SQ AM [facility] Last Admin: 09/09/17 06:56 Dose: 35 units Insulin Detemir (Levemir Vial) 25 units SQ HS [facility] Last Admin: 09/08/17 22:35 Dose: 25 units Losartan Potassium (Cozaar -) 100 mg PO DAILY [facility] Last Admin: 09/09/17 09:59 Dose: 100 mg Metoprolol Succinate (Toprol Xl -) 50 mg PO DAILY [facility] Last Admin: 09/09/17 10:00 Dose: 50 mg Simethicone (Mylicon Liquid -) 40 mg PO QID PRN PRN Reason: GAS Last Admin: 09/08/17 17:06 Dose: 40 mg - Objective Vital Signs: Vital Signs Temperature 98 F 09/09/17 10:00 Pulse Rate 68 09/09/17 10:00 Respiratory Rate 18 09/09/17 10:00 Blood Pressure 157/72 09/09/17 10:00 O2 Sat by Pulse Oximetry (%) 97 09/09/17 06:38 Constitutional: Yes: Mild Distress Eyes: Yes: WNL HENT: Yes: WNL Neck: Yes: WNL Cardiovascular: Yes: WNL Respiratory: Yes: WNL Gastrointestinal: Yes: WNL Genitourinary: Yes: WNL Musculoskeletal: Yes: WNL Extremities: Yes: WNL Edema: Yes Integumentary: Yes: WNL Wound/Incision: Yes: Clean/Dry Neurological: Yes: WNL ...Motor Strength: WNL Psychiatric: Yes: WNL Labs: CBC, BMP 09/09/17 06:30 09/09/17 06:30 INR, PTT INR 1.00 (0.82-1.09) 09/07/17 18:26 Problem List - Problems (1) Anemia Code(s): D64.9 - ANEMIA, UNSPECIFIED Qualifiers: Anemia type: unspecified type Qualified Code(s): D64.9 - Anemia, unspecified (2) Diabetes mellitus with hyperglycemia Code(s): E11.65 - TYPE 2 DIABETES MELLITUS WITH HYPERGLYCEMIA (3) Normocytic normochromic anemia Code(s): D64.9 - ANEMIA, UNSPECIFIED (4) Shortness of breath Code(s): R06.02 - SHORTNESS OF BREATH (5) Type 2 diabetes mellitus with diabetic neuropathic arthropathy Code(s): E11.610 - TYPE 2 DIABETES MELLITUS W DIABETIC NEUROPATHIC ARTHROPATHY (6) Type 2 diabetes mellitus with other diabetic arthropathy Code(s): E11.618 - TYPE 2 DIABETES MELLITUS WITH OTHER DIABETIC ARTHROPATHY Assessment/Plan HEME WORKUP IV VENOFER ORDERED MONITOR OUTPATIENT MAY NEED CAPSULE STUDY OUTPATIENT CT CHEST REVIEWED PULM F/U APPRECIATED CHECK LABS IN AM
--- NOTE | 2017-09-09 15:52 | PN ---
Progress Note (short form) - Note Progress Note: 67 year old female with pmhx of DM, HTN, chf and obesity who presents to the ER with shortness of breath and found to be anemia. chart reviewed in detail. Constitutional: Yes: Calm Eyes: Yes: Conjunctiva Clear Cardiovascular: Yes: S1, S2 Respiratory: Yes: On Nasal O2, Wheezes Gastrointestinal: Yes: Soft, Abdomen, Obese Renal/: Yes: WNL Musculoskeletal: Yes: WNL Edema: LLE: 1+, RLE: 1+ Neurological: Yes: Oriented Last Vital Signs Temp Pulse Resp BP Pulse Ox 98.6 F 76 18 150/60 94 L 09/09/17 13:00 09/09/17 13:00 09/09/17 14:32 09/09/17 13:00 09/09/17 14:32 CBC, BMP 09/09/17 06:30 09/09/17 06:30 Current Medications Generic Name Dose Route Start Last Admin Trade Name Freq PRN Reason Stop Dose Admin Aspirin 81 mg 09/08/17 10:00 09/09/17 09:59 Ecotrin - PO 81 mg DAILY [facility] Administration Atorvastatin Calcium 80 mg 09/08/17 22:00 09/08/17 22:36 Lipitor - PO 80 mg HS [facility] Administration Clopidogrel Bisulfate 75 mg 09/08/17 10:00 09/09/17 09:58 Plavix - PO 75 mg DAILY [facility] Administration Heparin Sodium (Porcine) 5,000 unit 09/08/17 22:00 09/09/17 09:58 Heparin - SQ 5,000 unit BID [facility] Administration Insulin Aspart 1 vial 09/08/17 07:00 09/09/17 11:21 Novolog Vial Sliding Scale - SQ 10 units ACHS [facility] Administration Protocol Insulin Detemir 35 units 09/08/17 12:02 09/09/17 06:56 Levemir Vial SQ 35 units AM [facility] Administration Insulin Detemir 25 units 09/08/17 22:00 09/08/17 22:35 Levemir Vial SQ 25 units HS [facility] Administration Losartan Potassium 100 mg 09/08/17 10:00 09/09/17 09:59 Cozaar - PO 100 mg DAILY [facility] Administration Metoprolol Succinate 50 mg 09/08/17 10:00 09/09/17 10:00 Toprol Xl - PO 50 mg DAILY [facility] Administration Simethicone 40 mg 09/08/17 11:45 09/08/17 17:06 Mylicon Liquid - PO 40 mg QID PRN Administration GAS Anemia: normocytic. normal platelets/WBC anemia of chronic disease +/- gi losses slowly drifting down Hgb, if <8, will transfuse slowly if need to for Venofer (ferritin low) pt on DAPT(Asa/plavix) ,now on SQH too. If hgb drifts down further, will hold SQH, order SCDs and encourage ambulation as permitted. Capsule studies as an OP s/p EGD/colonsocopy---05/2017 -- --- recommended Capsule study. SRIDHAR + in 02/2017 (1:80) repeat now 02/2017-- MALLIKA--wnl, Free K/L 1.84--non significant. Will repeat
[2017-09-09] MEDS ORDERED: IRON SUCROSE INJECTION 200 MG in SODIUM CHLORIDE 240 ML IVPB ONE (16:00)
--- NOTE | 2017-09-09 16:42 | CON.GI ---
Consult Consult Specialty:: GI Reason for Consultation:: anemia, normocytic, hypochromic - History of Present Illness History of Present Illness: Chart reviewed. Prior admissions records reviewed. EGD and colonoscopy 05/2017 reviewed. Per chart: 67 y/o woman with PMH of: Anemia (last blood transfusion, July 2017), CAD (stent), HTN, HLD, DM. Who presents to the ED with her family with increased SOB, VASQUEZ, fatigue, and weakness x 1 week. Patient's son reports that his mother has been very pale, weak and SOB. Patient's last admission 06/19/17-- SOB, Anemia. Patient;s son also reports having intermittent CP non- radiating- now resolved. Patient reports having lower leg edema,and pain,she denies dark stools,or hematuria. At the time of this encounter the pt appeared comfortable. AAOx3. reports no recent melena, hematochezia, hematemesis, abdominal, pain, dyspepsia, nausea, jaundice. Recalls having EGD and colonoscopy in May [address] Alvarado. Reports reviewed, no significant pathology was found. 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 No: AFIB Pulmonary: Yes: Asthma, Sleep Apnea Gastrointestinal: Yes: GERD. No: Ascites Hepatobiliary: No: Cirrhosis Renal/: No: Renal Failure ...: No Psych: No: Addictions Musculoskeletal: Yes: Osteoarthritis Endocrine: Yes: Diabetes Mellitus - Alcohol/Substance Use Hx Alcohol Use: No History of Substance Use: reports: None - Smoking History Smoking history: Never smoked Have you smoked in the past 12 months: No Aproximately how many cigarettes per day: 0 - Social History ADL: Family Assistance History of Recent Travel: No Home Medications - Allergies Allergies/Adverse Reactions: Allergies Allergy/AdvReac Type Severity Reaction Status Date / Time Penicillins Allergy Difficulty Verified 09/07/17 18:13 Breathing - Home Medications Home Medications: Ambulatory Orders Aspirin [ASA -] 81 mg PO DAILY 08/02/12 Mometasone Furoate [Asmanex 220Mcg -] 2 inh IH DAILY PRN 08/02/12 Atorvastatin Ca [Lipitor] 40 mg PO HS #30 tablet 01/02/15 Clopidogrel Bisulfate [Plavix -] 75 mg PO DAILY 06/19/17 Metoprolol Succinate [Toprol Xl] 25 mg PO DAILY 06/19/17 Furosemide [Lasix -] 40 mg PO DAILY #30 tablet 06/24/17 Insulin (Levemir) [Levemir Vial] 45 units SQ BID@0700,2200 #0 ml 06/24/17 Insulin (Levemir) [Levemir Vial] 50 units SQ BID@0700,2200 #0 ml 06/24/17 Family Disease History - Family Disease History Family History: Unremarkable Family Disease History: Diabetes: Mother, Sister Review of Systems Findings/Remarks: as per HPI, H&P Physical Exam-GI Vital Signs: Vital Signs Temperature 98.6 F 09/09/17 13:00 Pulse Rate 76 09/09/17 13:00 Respiratory Rate 18 09/09/17 14:32 Blood Pressure 150/60 09/09/17 13:00 O2 Sat by Pulse Oximetry (%) 94 L 09/09/17 14:32 Constitutional: Yes: Well Nourished, No Distress, Calm Eyes: Yes: Conjunctiva Clear HENT: Yes: Atraumatic Neck: Yes: Supple Cardiovascular: Yes: Regular Rate and Rhythm Respiratory: Yes: Regular Gastrointestinal Inspection: No: Ascites, Distention ...Auscultate: Yes: Normoactive Bowel Sounds ...Palpate: Yes: Soft. No: Firm/Rigid, Guarding, Mass, Tenderness Neurological: Yes: Alert Labs: CBC, BMP 09/09/17 06:30 09/09/17 06:30 INR, PTT INR 1.00 (0.82-1.09) 09/07/17 18:26 Laboratory Last Values WBC 7.1 K/mm3 (4.0-10.0) 09/09/17 06:30 RBC 3.17 M/mm3 (3.60-5.2) L 09/09/17 06:30 Hgb 8.8 GM/dL (10.7-15.3) L 09/09/17 06:30 Hct 26.5 % (32.4-45.2) L 09/09/17 06:30 MCV 83.6 fl (80-96) 09/09/17 06:30 MCH 27.8 pg (25.7-33.7) 09/09/17 06:30 MCHC 33.2 g/dl (32.0-36.0) 09/09/17 06:30 RDW 18.3 % (11.6-15.6) H 09/09/17 06:30 Plt Count 224 K/MM3 (134-434) 09/09/17 06:30 MPV 10.7 fl (7.5-11.1) 09/09/17 06:30 Absolute Neuts (auto) 4.8 # 09/09/17 06:30 Neutrophils % 67.3 % (42.8-82.8) 09/09/17 06:30 Lymphocytes % 20.0 % (8-40) 09/09/17 06:30 Monocytes % 8.4 % (3.8-10.2) 09/09/17 06:30 Eosinophils % 3.4 % (0-4.5) 09/09/17 06:30 Basophils % 0.9 % (0-2.0) 09/09/17 06:30 Nucleated RBC % 0 % (0-0) 09/09/17 06:30 PT with INR 11.30 SEC (9.7-13.0) 09/07/17 18:26 INR 1.00 (0.82-1.09) 09/07/17 18:26 Sodium 141 mmol/L (136-145) 09/09/17 06:30 Potassium 4.5 mmol/L (3.5-5.1) 09/09/17 06:30 Chloride 107 mmol/L (98-107) 09/09/17 06:30 Carbon Dioxide 27 mmol/L (21-32) 09/09/17 06:30 Anion Gap 7 (8-16) L 09/09/17 06:30 BUN 20 mg/dL (7-18) H 09/09/17 06:30 Creatinine 0.8 mg/dL (0.55-1.02) 09/09/17 06:30 Creat Clearance w eGFR > 60 (>60) 09/09/17 06:30 POC Glucometer 158 UNITS (80-120) 09/09/17 16:08 Random Glucose 155 mg/dL (74-106) H 09/09/17 06:30 Hemoglobin A1c % 9.8 % (4.8-6.0) H 09/09/17 08:40 Calcium 8.6 mg/dL (8.5-10.1) 09/09/17 06:30 Phosphorus 4.2 mg/dL (2.5-4.9) 09/08/17 09:40 Magnesium 2.2 mg/dL (1.8-2.4) 09/08/17 09:40 Ferritin 20.9 ng/ml (6.9-282.5) 09/08/17 12:20 Total Bilirubin 0.5 mg/dL (0.2-1.0) D 09/09/17 06:30 AST 11 U/L (15-37) L 09/09/17 06:30 ALT 18 U/L (12-78) 09/09/17 06:30 Alkaline Phosphatase 82 U/L (45-117) 09/09/17 06:30 Creatine Kinase 75 IU/L (26-192) 09/07/17 18:26 Troponin I 0.04 ng/ml (0.00-0.05) 09/07/17 18:26 B-Natriuretic Peptide 1023.71 pg/ml (5-125) H 09/08/17 12:20 Total Protein 6.3 g/dl (6.4-8.2) L 09/09/17 06:30 Albumin 2.7 g/dl (3.4-5.0) L 09/09/17 06:30 Vitamin B12 510 pg/ml (180-914) 09/08/17 12:20 Serum Folate 19 ng/ml (3.1-17.5) H 09/08/17 12:20 TSH 0.44 uIU/ml (0.358-3.74) 09/08/17 12:20 Free T4 1.14 ng/dl (0.76-1.46) 09/08/17 12:20 Urine Color Straw 09/08/17 02:12 Urine Appearance Clear 09/08/17 02:12 Urine pH 6.0 (5.0-8.0) 09/08/17 02:12 Ur Specific [place] 1.009 (1.001-1.035) 09/08/17 02:12 Urine Protein 2+ (NEGATIVE) H 09/08/17 02:12 Urine Glucose (UA) 1+ (NEGATIVE) H 09/08/17 02:12 Urine Ketones Negative (NEGATIVE) 09/08/17 02:12 Urine Blood Negative (NEGATIVE) 09/08/17 02:12 Urine Nitrite Negative (NEGATIVE) 09/08/17 02:12 Urine Bilirubin Negative (<2.0 mg/dL) 09/08/17 02:12 Urine Urobilinogen Negative mg/dL (0.2-1.0) 09/08/17 02:12 Ur Leukocyte Esterase 2+ (NEGATIVE) H 09/08/17 02:12 Urine WBC (Auto) 61 /hpf (3-5) 09/08/17 02:12 Urine RBC (Auto) 10 /hpf (0-3) 09/08/17 02:12 Ur Epithelial Cells Rare /HPF (FEW) 09/08/17 02:12 Urine Bacteria Rare /hpf (NONE SEEN) 09/08/17 02:12 Stool Occult Blood Negative (NEGATIVE) 09/07/17 18:30 Blood Type O POSITIVE 09/07/17 18:26 Antibody Screen Negative 09/07/17 18:26 Crossmatch See Detail 09/07/17 18:26 Problem List - Problems (1) Normocytic normochromic anemia Code(s): D64.9 - ANEMIA, UNSPECIFIED Assessment/Plan A 67F with chronic anemia w/o stigmata of recent, or ongoing, significant GI bleeding. The pt recently underwent an endoscopic work up of her anemia. Obtain stool hemocult from 3 separate bms. If occult positive, refer for small bowel capsule endoscopy. Hematology evaluation.
[2017-09-09] MEDS: ATORVASTATIN CA 80 MG TABLET (FP) PO SCH (22:15)
[2017-09-10 06:37] LABS: SERUM IRON SATURATION 15 % (15-55); TOTAL IRON BINDING CAPACITY 308 ug/dL (250-450); UIBC 261 ug/dL (118-369)
[2017-09-10 06:41] LABS: ANION GAP 5 (8-16); BLOOD UREA NITROGEN 19 mg/dL (7-18); CALCIUM 8.5 mg/dL (8.5-10.1); CHLORIDE 106 mmol/L (98-107); CO2 31 mmol/L (21-32); CREATININE 0.8 mg/dL (0.55-1.02); GLUCOSE,RANDOM 120 mg/dL (74-106); POTASSIUM 4.3 mmol/L (3.5-5.1); SODIUM 142 mmol/L (136-145)
[2017-09-10] MEDS: INSULIN (LEVEMIR) 100 UNITS/ML UNITS SQ SCH ×2 (06:42→21:46)
[2017-09-10] MEDS: INSULIN SLIDING SCALE (NOVOLOG) 1 VIAL SQ SCH ×4 (06:42→21:47)
[2017-09-10 07:02] LABS: HEMATOCRIT 26.7 % (32.4-45.2); HEMOGLOBIN 8.9 GM/dL (10.7-15.3); MCHC 33.2 g/dl (32.0-36.0); MEAN CELL VOLUME 84.3 fl (80-96); MEAN PLT VOLUME 10.7 fl (7.5-11.1); PLATELET COUNT 229 K/MM3 (134-434); RBC 3.16 M/mm3 (3.60-5.2); RDW 17.8 % (11.6-15.6); WHITE BLOOD COUNT 6.9 K/mm3 (4.0-10.0)
[2017-09-10] MEDS ORDERED: INSULIN (NOVOLOG) ASPART 100 UNITS/ML 10ML VIAL ONE ×2 (07:45→10:59)
[2017-09-10] MEDS ORDERED: INSULIN (LEVEMIR) 100 UNITS/ML UNITS SQ ONE (07:45)
[2017-09-10] MEDS: HEPARIN NA (PORCINE) 5,000 UNITS/ML 1ML VIAL SQ SCH ×2 (09:32→21:46)
[2017-09-10] MEDS: ASPIRIN COATED 81 MG TABLET.EC PO SCH (09:32)
[2017-09-10] MEDS: CLOPIDOGREL BISULFATE 75 MG TABLET (FP) PO SCH (09:32)
[2017-09-10] MEDS: LOSARTAN POTASSIUM 50 MG TABLET (FP) PO SCH (09:33)
--- NOTE | 2017-09-10 11:24 | PN ---
Progress Note (short form) - Note Progress Note: PULMONARY VSS/AFEBRILE ANICTERIC CLEAR LUNG ECHAVARRIA S1S2 BS+ OBESE NO EDEMA LABS/MEDS/NOTES REVIEWED (1) Anemia Code(s): D64.9 - ANEMIA, UNSPECIFIED Qualifiers: Anemia type: unspecified type Qualified Code(s): D64.9 - Anemia, unspecified (2) Diabetes mellitus with hyperglycemia Code(s): E11.65 - TYPE 2 DIABETES MELLITUS WITH HYPERGLYCEMIA (3) Shortness of breath Code(s): R06.02 - SHORTNESS OF BREATH ANEMIA UNKNOWN ETIOLOGY/LIKELY CAUSE OF DYSPNEA REMAINS ON ASA/PLAVIX EGD/COLONOSCOPY NEGATIVE IN PAST SMALL BOWEL CAPSULAR ENDOSCOPY TO BE ARRANGED PER GI CT FINDINGS ARE MINIMAL AND LIKELY NOT THE CAUSE OF THE DYSPNEA (SPO2 97% ON R/A ) WHICH HAS NOW RESOLVED POST TRANSFUSION R IVY PIKE Problem List - Problems (1) Anemia Code(s): D64.9 - ANEMIA, UNSPECIFIED Qualifiers: Anemia type: unspecified type Qualified Code(s): D64.9 - Anemia, unspecified (2) Diabetes mellitus with hyperglycemia Code(s): E11.65 - TYPE 2 DIABETES MELLITUS WITH HYPERGLYCEMIA (3) Shortness of breath Code(s): R06.02 - SHORTNESS OF BREATH
--- NOTE | 2017-09-10 11:43 | PN ---
Progress Note, Physician Chief Complaint: AWAKE ALERT FEELS BLOATED AND CONSTIPATED DEIES CHEST PAIN NO SOB - Current Medication List Current Medications: Active Medications Aspirin (Ecotrin -) 81 mg PO DAILY [facility] Last Admin: 09/10/17 09:32 Dose: 81 mg Atorvastatin Calcium (Lipitor -) 80 mg PO HS [facility] Last Admin: 09/09/17 22:15 Dose: 80 mg Clopidogrel Bisulfate (Plavix -) 75 mg PO DAILY [facility] Last Admin: 09/10/17 09:32 Dose: 75 mg Heparin Sodium (Porcine) (Heparin -) 5,000 unit SQ BID [facility] Last Admin: 09/10/17 09:32 Dose: Not Given Insulin Aspart (Novolog Vial Sliding Scale -) 1 vial SQ ACHS [facility]; Protocol Last Admin: 09/10/17 11:03 Dose: 10 units Insulin Detemir (Levemir Vial) 35 units SQ AM [facility] Last Admin: 09/10/17 06:42 Dose: Not Given Insulin Detemir (Levemir Vial) 25 units SQ HS [facility] Last Admin: 09/09/17 22:16 Dose: 25 units Losartan Potassium (Cozaar -) 100 mg PO DAILY [facility] Last Admin: 09/10/17 09:33 Dose: Not Given Metoprolol Succinate (Toprol Xl -) 50 mg PO DAILY [facility] Last Admin: 09/10/17 09:32 Dose: 50 mg Simethicone (Mylicon Liquid -) 40 mg PO QID PRN PRN Reason: GAS Last Admin: 09/08/17 17:06 Dose: 40 mg - Objective Vital Signs: Vital Signs Temperature 97.4 F L 09/10/17 10:00 Pulse Rate 74 09/10/17 10:00 Respiratory Rate 18 09/10/17 10:00 Blood Pressure 143/78 09/10/17 10:00 O2 Sat by Pulse Oximetry (%) 96 09/10/17 05:41 Constitutional: Yes: Mild Distress Eyes: Yes: WNL HENT: Yes: WNL Neck: Yes: WNL Cardiovascular: Yes: WNL Respiratory: Yes: WNL Gastrointestinal: Yes: Distention Genitourinary: Yes: WNL Musculoskeletal: Yes: WNL Extremities: Yes: WNL Edema: No Peripheral Pulses WNL: Yes Integumentary: Yes: WNL Wound/Incision: Yes: Clean/Dry Neurological: Yes: WNL ...Motor Strength: WNL Psychiatric: Yes: WNL Labs: CBC, BMP 09/10/17 05:15 09/10/17 05:15 INR, PTT INR 1.00 (0.82-1.09) 09/07/17 18:26 Problem List - Problems (1) Anemia Code(s): D64.9 - ANEMIA, UNSPECIFIED Qualifiers: Anemia type: unspecified type Qualified Code(s): D64.9 - Anemia, unspecified (2) Diabetes mellitus with hyperglycemia Code(s): E11.65 - TYPE 2 DIABETES MELLITUS WITH HYPERGLYCEMIA (3) Normocytic normochromic anemia Code(s): D64.9 - ANEMIA, UNSPECIFIED (4) Shortness of breath Code(s): R06.02 - SHORTNESS OF BREATH (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
[2017-09-10] MEDS ORDERED: IRON SUCROSE INJECTION 200 MG in SODIUM CHLORIDE 240 ML IVPB ONE (11:44)
[2017-09-10] MEDS: SENNOSIDES 8.6MG TABLET (FP) PO SCH ×2 (12:27→21:47)
[2017-09-10] MEDS: MUPIROCIN 2% TOPICAL OINTMENT 22 GM TUBE TP SCH ×2 (14:00→21:46)
--- NOTE | 2017-09-10 18:25 | CON.CARD ---
Consult Consult Specialty:: Cardiology - History of Present Illness Chief Complaint: Dizziness History of Present Illness: This is a 67 year old female with a PMH of Anemia (last blood transfusion, July 2017), CAD (stent), HTN, HLD, and DM. She presented to the ED with increased SOB , VASQUEZ, fatigue, and weakness x 1 week. Patient's son reports that his mother has been very pale, weak and SOB. Patient's last admission 06/19/17-06/24/17- SOB , Anemia.Patient has been evaluated by GI in the past, where she had an endoscopy and colonoscopy, both which were negative. 09/10/17 Presently receiving IV iron and is symptom free. 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 No: AFIB Pulmonary: Yes: Asthma, Sleep Apnea Gastrointestinal: Yes: GERD. No: Ascites Hepatobiliary: No: Cirrhosis Renal/: No: Renal Failure ...: No Psych: No: Addictions Musculoskeletal: Yes: Osteoarthritis Endocrine: Yes: Diabetes Mellitus - Alcohol/Substance Use Hx Alcohol Use: No History of Substance Use: reports: None - Smoking History Smoking history: Never smoked Have you smoked in the past 12 months: No Aproximately how many cigarettes per day: 0 - Social History ADL: Family Assistance History of Recent Travel: No Home Medications - Allergies Allergies/Adverse Reactions: Allergies Allergy/AdvReac Type Severity Reaction Status Date / Time Penicillins Allergy Difficulty Verified 09/07/17 18:13 Breathing - Home Medications Home Medications: Ambulatory Orders Aspirin [ASA -] 81 mg PO DAILY 08/02/12 Mometasone Furoate [Asmanex 220Mcg -] 2 inh IH DAILY PRN 08/02/12 Atorvastatin Ca [Lipitor] 40 mg PO HS #30 tablet 01/02/15 Clopidogrel Bisulfate [Plavix -] 75 mg PO DAILY 06/19/17 Metoprolol Succinate [Toprol Xl] 25 mg PO DAILY 06/19/17 Furosemide [Lasix -] 40 mg PO DAILY #30 tablet 06/24/17 Insulin (Levemir) [Levemir Vial] 45 units SQ BID@0700,2200 #0 ml 06/24/17 Insulin (Levemir) [Levemir Vial] 50 units SQ BID@0700,2200 #0 ml 06/24/17 Family Disease History - Family Disease History Family Disease History: Diabetes: Mother, Sister Review of Systems Findings/Remarks: As per HPI Vital Signs: Vital Signs Temperature 97.9 F 09/10/17 18:04 Pulse Rate 60 09/10/17 18:04 Respiratory Rate 20 09/10/17 18:04 Blood Pressure 141/78 09/10/17 18:04 O2 Sat by Pulse Oximetry (%) 100 09/10/17 15:00 Constitutional: Yes: No Distress Eyes: Yes: WNL HENT: Yes: WNL Respiratory: Yes: CTA Bilaterally Gastrointestinal: Yes: Normal Bowel Sounds, Soft Cardiovascular: Yes: Regular Rate and Rhythm (NL S1 S2, No MRHG) Extremities: Yes: WNL Edema: No Neurological: Yes: Alert, Oriented (Non Focal) - Other Data Labs, Other Data: CBC, BMP 09/10/17 05:15 09/10/17 05:15 INR, PTT INR 1.00 (0.82-1.09) 09/07/17 18:26 Assessment/Plan This is a 67 y/o woman PMH of: HTN, HLD, CAD s/p stents x2, DM, Anemia (blood transfusion 05/2017). Placed in Observation for Symptomatic Anemia, SOB. I believe her symptoms are secondary to the anemia and not cardiovascular. EKG this admission is non acute and unchanged from previous. Last Echocardiogram 02/22/17 Normal LV/RV size/FXN Mod MR CAD Continue: Aspirin [ASA -] 81 mg PO DAILY 08/02/12 Atorvastatin Ca [Lipitor] 40 mg PO HS #30 tablet 01/02/15 Clopidogrel Bisulfate [Plavix -] 75 mg PO DAILY 06/19/17 Metoprolol Succinate [Toprol Xl] 25 mg PO DAILY 06/19/17 Furosemide [Lasix -] 40 mg PO DAILY #30 tablet 06/24/17
[2017-09-10] MEDS: ATORVASTATIN CA 80 MG TABLET (FP) PO SCH (21:47)
[2017-09-11] MEDS: INSULIN SLIDING SCALE (NOVOLOG) 1 VIAL SQ SCH ×4 (06:34→22:40)
[2017-09-11] MEDS: INSULIN (LEVEMIR) 100 UNITS/ML UNITS SQ SCH ×2 (06:34→22:41)
[2017-09-11] MEDS: MUPIROCIN 2% TOPICAL OINTMENT 22 GM TUBE TP SCH ×3 (06:34→22:47)
[2017-09-11 07:25] LABS: HEMATOCRIT 27.6 % (32.4-45.2); HEMOGLOBIN 9.1 GM/dL (10.7-15.3); MCH 27.7 pg (25.7-33.7); MEAN PLT VOLUME 10.5 fl (7.5-11.1); PLATELET COUNT 226 K/MM3 (134-434); RBC 3.29 M/mm3 (3.60-5.2); RDW 17.8 % (11.6-15.6); WHITE BLOOD COUNT 6.9 K/mm3 (4.0-10.0)
[2017-09-11] MEDS: LOSARTAN POTASSIUM 50 MG TABLET (FP) PO SCH (10:09)
[2017-09-11] MEDS: HEPARIN NA (PORCINE) 5,000 UNITS/ML 1ML VIAL SQ SCH ×3 (10:09→23:01)
[2017-09-11] MEDS: CLOPIDOGREL BISULFATE 75 MG TABLET (FP) PO SCH (10:09)
[2017-09-11] MEDS: ASPIRIN COATED 81 MG TABLET.EC PO SCH (10:10)
[2017-09-11] MEDS: SENNOSIDES 8.6MG TABLET (FP) PO SCH ×3 (10:10→23:00)
[2017-09-11] MEDS ORDERED: INSULIN (NOVOLOG) ASPART 100 UNITS/ML 10ML VIAL ONE ×2 (11:14→11:18)
--- NOTE | 2017-09-11 13:29 | PN ---
Progress Note, Physician Chief Complaint: pulmonary alert,sitting up in bed,-resp distress - Current Medication List Current Medications: Active Medications Aspirin (Ecotrin -) 81 mg PO DAILY [facility] Last Admin: 09/11/17 10:10 Dose: 81 mg Atorvastatin Calcium (Lipitor -) 80 mg PO HS [facility] Last Admin: 09/10/17 21:47 Dose: 80 mg Clopidogrel Bisulfate (Plavix -) 75 mg PO DAILY [facility] Last Admin: 09/11/17 10:09 Dose: 75 mg Heparin Sodium (Porcine) (Heparin -) 5,000 unit SQ BID [facility] Last Admin: 09/11/17 10:09 Dose: 5,000 unit Insulin Aspart (Novolog Vial Sliding Scale -) 1 vial SQ [facility]; Protocol Last Admin: 09/11/17 11:15 Dose: 10 units Insulin Detemir (Levemir Vial) 25 units SQ HS [facility] Last Admin: 09/10/17 21:46 Dose: 25 units Insulin Detemir (Levemir Vial) 45 units SQ AM [facility] Last Admin: 09/11/17 06:34 Dose: 45 units Losartan Potassium (Cozaar -) 100 mg PO DAILY [facility] Last Admin: 09/11/17 10:09 Dose: Not Given Metoprolol Succinate (Toprol Xl -) 50 mg PO DAILY [facility] Last Admin: 09/11/17 10:09 Dose: 50 mg Mupirocin (Bactroban 2% Ointment -) 1 applic TP TID [facility] Last Admin: 09/11/17 06:34 Dose: 1 applic Senna (Senna -) 1 tab PO BID [facility] Last Admin: 09/11/17 10:10 Dose: Not Given Simethicone (Mylicon Liquid -) 40 mg PO QID PRN PRN Reason: GAS Last Admin: 09/08/17 17:06 Dose: 40 mg - Objective Vital Signs: Vital Signs Temperature 97.7 F 09/11/17 09:00 Pulse Rate 67 09/11/17 09:00 Respiratory Rate 18 09/11/17 09:00 Blood Pressure 157/81 09/11/17 09:00 O2 Sat by Pulse Oximetry (%) 98 09/11/17 10:00 Constitutional: Yes: Well Nourished, Calm Eyes: Yes: WNL HENT: Yes: WNL Cardiovascular: Yes: Regular Rate and Rhythm, S1, S2 Respiratory: Yes: CTA Bilaterally Gastrointestinal: Yes: Normal Bowel Sounds, Soft Extremities: Yes: WNL Edema: No Labs: CBC, BMP 09/11/17 06:20 09/10/17 05:15 INR, PTT INR 1.00 (0.82-1.09) 09/07/17 18:26 Assessment/Plan (1) Anemia Code(s): D64.9 - ANEMIA, UNSPECIFIED Qualifiers: Anemia type: unspecified type Qualified Code(s): D64.9 - Anemia, unspecified (2) Diabetes mellitus with hyperglycemia Code(s): E11.65 - TYPE 2 DIABETES MELLITUS WITH HYPERGLYCEMIA (3) Shortness of breath Code(s): R06.02 - SHORTNESS OF BREATH ANEMIA UNKNOWN ETIOLOGY/LIKELY CAUSE OF DYSPNEA ASA/PLAVIX PER CARDIOLOGY SMALL BOWEL CAPSULAR ENDOSCOPY TO BE ARRANGED PER GI CT FINDINGS ARE MINIMAL AND LIKELY NOT THE CAUSE OF THE DYSPNEA (SPO2 97% ON R/A MONITOR H+H Problem List - Problems (1) Anemia Code(s): D64.9 - ANEMIA, UNSPECIFIED Qualifiers: Anemia type: unspecified type Qualified Code(s): D64.9 - Anemia, unspecified (2) Diabetes mellitus with hyperglycemia Code(s): E11.65 - TYPE 2 DIABETES MELLITUS WITH HYPERGLYCEMIA (3) Shortness of breath Code(s): R06.02 - SHORTNESS OF BREATH
--- NOTE | 2017-09-11 15:02 | PN ---
Progress Note, Physician Chief Complaint: No chest pain SOB improved History of Present Illness: This is a 67 y/o woman PMH of: HTN, HLD, CAD s/p stents x2, DM, Anemia (blood transfusion 05/2017). Placed in Observation for Symptomatic Anemia, SOB. - Current Medication List Current Medications: Active Medications Aspirin (Ecotrin -) 81 mg PO DAILY [facility] Last Admin: 09/11/17 10:10 Dose: 81 mg Atorvastatin Calcium (Lipitor -) 80 mg PO HS [facility] Last Admin: 09/10/17 21:47 Dose: 80 mg Clopidogrel Bisulfate (Plavix -) 75 mg PO DAILY [facility] Last Admin: 09/11/17 10:09 Dose: 75 mg Heparin Sodium (Porcine) (Heparin -) 5,000 unit SQ BID [facility] Last Admin: 09/11/17 10:09 Dose: 5,000 unit Insulin Aspart (Novolog Vial Sliding Scale -) 1 vial SQ [facility]; Protocol Last Admin: 09/11/17 11:15 Dose: 10 units Insulin Detemir (Levemir Vial) 25 units SQ HS [facility] Last Admin: 09/10/17 21:46 Dose: 25 units Insulin Detemir (Levemir Vial) 45 units SQ AM [facility] Last Admin: 09/11/17 06:34 Dose: 45 units Losartan Potassium (Cozaar -) 100 mg PO DAILY [facility] Last Admin: 09/11/17 10:09 Dose: Not Given Metoprolol Succinate (Toprol Xl -) 50 mg PO DAILY [facility] Last Admin: 09/11/17 10:09 Dose: 50 mg Mupirocin (Bactroban 2% Ointment -) 1 applic TP TID [facility] Last Admin: 09/11/17 14:05 Dose: 1 applic Senna (Senna -) 1 tab PO BID [facility] Last Admin: 09/11/17 10:10 Dose: Not Given Simethicone (Mylicon Liquid -) 40 mg PO QID PRN PRN Reason: GAS Last Admin: 09/08/17 17:06 Dose: 40 mg - Objective Vital Signs: Vital Signs Temperature 97.7 F 09/11/17 09:00 Pulse Rate 67 09/11/17 09:00 Respiratory Rate 18 09/11/17 09:00 Blood Pressure 157/81 09/11/17 09:00 O2 Sat by Pulse Oximetry (%) 98 09/11/17 10:00 Constitutional: Yes: No Distress Neck: Yes: Supple Cardiovascular: Yes: Regular Rate and Rhythm, S1, S2. No: JVD, Murmur Respiratory: Yes: CTA Bilaterally Gastrointestinal: Yes: Soft Edema: No Labs: CBC, BMP 09/11/17 06:20 09/10/17 05:15 INR, PTT INR 1.00 (0.82-1.09) 09/07/17 18:26 Assessment/Plan This is a 67 y/o woman PMH of: HTN, HLD, CAD s/p stents x2, DM, Anemia (blood transfusion 05/2017). Placed in Observation for Symptomatic Anemia, SOB. -Symptoms are likely due to anemia. EKG this admission is non acute and unchanged from previous. Last Echocardiogram 02/22/17 Normal LV/RV size/FXN Mod MR CAD Continue aspirin/statin/plavix/metoprolol/furosemide Will sign off at this time. Please call with questions or clinical changes. Planned for GI capsule study
--- NOTE | 2017-09-11 16:30 | PN ---
Progress Note, Physician Chief Complaint: AWAKE ALERT FAMILY BEDSIDE DENIES CHEST PAIN OR SOB - Current Medication List Current Medications: Active Medications Aspirin (Ecotrin -) 81 mg PO DAILY [facility] Last Admin: 09/11/17 10:10 Dose: 81 mg Atorvastatin Calcium (Lipitor -) 80 mg PO HS [facility] Last Admin: 09/10/17 21:47 Dose: 80 mg Clopidogrel Bisulfate (Plavix -) 75 mg PO DAILY [facility] Last Admin: 09/11/17 10:09 Dose: 75 mg Heparin Sodium (Porcine) (Heparin -) 5,000 unit SQ BID [facility] Last Admin: 09/11/17 10:09 Dose: 5,000 unit Iron Sucrose 200 mg/ Sodium (Chloride) 250 mls @ 250 mls/hr IVPB ONCE ONE Stop: 09/11/17 17:28 Insulin Aspart (Novolog Vial Sliding Scale -) 1 vial SQ [facility]; Protocol Last Admin: 09/11/17 11:15 Dose: 10 units Insulin Detemir (Levemir Vial) 25 units SQ HS [facility] Last Admin: 09/10/17 21:46 Dose: 25 units Insulin Detemir (Levemir Vial) 45 units SQ AM [facility] Last Admin: 09/11/17 06:34 Dose: 45 units Losartan Potassium (Cozaar -) 100 mg PO DAILY [facility] Last Admin: 09/11/17 10:09 Dose: Not Given Metoprolol Succinate (Toprol Xl -) 50 mg PO DAILY [facility] Last Admin: 09/11/17 10:09 Dose: 50 mg Mupirocin (Bactroban 2% Ointment -) 1 applic TP TID [facility] Last Admin: 09/11/17 14:05 Dose: 1 applic Senna (Senna -) 1 tab PO BID [facility] Last Admin: 09/11/17 10:10 Dose: Not Given Simethicone (Mylicon Liquid -) 40 mg PO QID PRN PRN Reason: GAS Last Admin: 09/08/17 17:06 Dose: 40 mg - Objective Vital Signs: Vital Signs Temperature 98.2 F 09/11/17 14:42 Pulse Rate 72 09/11/17 14:42 Respiratory Rate 18 09/11/17 14:42 Blood Pressure 148/70 09/11/17 14:42 O2 Sat by Pulse Oximetry (%) 98 09/11/17 10:00 Constitutional: Yes: No Distress Eyes: Yes: WNL HENT: Yes: WNL Neck: Yes: WNL Cardiovascular: Yes: WNL Respiratory: Yes: WNL Gastrointestinal: Yes: WNL Genitourinary: Yes: WNL Musculoskeletal: Yes: Muscle Pain Extremities: Yes: Deformity Edema: Yes Integumentary: Yes: WNL Wound/Incision: Yes: Clean/Dry Neurological: Yes: WNL ...Motor Strength: LLE, RLE (B/L KNEE PAIN) Psychiatric: Yes: WNL Labs: CBC, BMP 09/11/17 06:20 09/10/17 05:15 INR, PTT INR 1.00 (0.82-1.09) 09/07/17 18:26 Problem List - Problems (1) Anemia Code(s): D64.9 - ANEMIA, UNSPECIFIED Qualifiers: Anemia type: unspecified type Qualified Code(s): D64.9 - Anemia, unspecified (2) Diabetes mellitus with hyperglycemia Code(s): E11.65 - TYPE 2 DIABETES MELLITUS WITH HYPERGLYCEMIA (3) Normocytic normochromic anemia Code(s): D64.9 - ANEMIA, UNSPECIFIED (4) Shortness of breath Code(s): R06.02 - SHORTNESS OF BREATH (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
[2017-09-11] MEDS ORDERED: IRON SUCROSE INJECTION 200 MG in SODIUM CHLORIDE 90 ML IVPB ONE (16:45)
[2017-09-11] MEDS ORDERED: PT OWN MED DRAWER 7, Y5N ONE (19:19)
[2017-09-11] MEDS ORDERED: MAGNESIUM HYDROX 2400MG/30ML ORAL SUSPENSION 30 ML CUP PO ONE (20:20)
[2017-09-11] MEDS: ATORVASTATIN CA 80 MG TABLET (FP) PO SCH (22:38)
[2017-09-12] MEDS ORDERED: PT OWN MED DRAWER 7, Y5N ONE (01:34)
[2017-09-12] MEDS ORDERED: INSULIN (NOVOLOG) ASPART 100 UNITS/ML 10ML VIAL ONE (06:46)
[2017-09-12] MEDS: INSULIN SLIDING SCALE (NOVOLOG) 1 VIAL SQ SCH (06:48)
[2017-09-12] MEDS: INSULIN (LEVEMIR) 100 UNITS/ML UNITS SQ SCH (06:49)
[2017-09-12] MEDS: MUPIROCIN 2% TOPICAL OINTMENT 22 GM TUBE TP SCH (06:50)
[2017-09-12 08:04] LABS: HEMATOCRIT 28.4 % (32.4-45.2); HEMOGLOBIN 9.2 GM/dL (10.7-15.3); MCH 27.4 pg (25.7-33.7); MCHC 32.4 g/dl (32.0-36.0); MEAN CELL VOLUME 84.5 fl (80-96); MEAN PLT VOLUME 10.5 fl (7.5-11.1); PLATELET COUNT 222 K/MM3 (134-434); RBC 3.36 M/mm3 (3.60-5.2); RDW 17.7 % (11.6-15.6); WHITE BLOOD COUNT 7.9 K/mm3 (4.0-10.0)
--- NOTE | 2017-09-12 09:34 | PN ---
Progress Note (short form) - Note Progress Note: 67yo F was consulted to Vascular team for Left foot pain and vericosities?. Pt states that she has pain on the plantar aspect part of her foot x 15years. Pt denies seeing a [facility] or vascular surgeon in the past. Pt states that the pain is worse when walking barefoot and hurts anytime she tries to walk. Pt denies vascular or foot surgery in the past. No history of wounds on her feet or significant swelling. Pt nonsmoker. Last Vital Signs Temp Pulse Resp BP Pulse Ox 97.6 F 73 18 104/56 97 09/12/17 06:00 09/12/17 06:00 09/12/17 06:00 09/12/17 06:00 09/11/17 21:00 CBC, BMP 09/12/17 06:45 09/10/17 05:15 PE: Gen: A&O x3 Resp: breathing comfortably Abd: soft, nontender, nondistended Ext: pedal pulses intact b/l, tenderness on plantar aspect of Lt foot with palpation, full ROM, no edema Problem List - Problems (1) Foot pain, left Assessment/Plan: Plan; -pt does not appear to have any vascular issues, pain may be due to plantar fasciitis -recommend podiatry follow as an outpatient Code(s): M79.672 - PAIN IN LEFT FOOT
[2017-09-12] MEDS: ASPIRIN COATED 81 MG TABLET.EC PO SCH (10:13)
[2017-09-12] MEDS: SENNOSIDES 8.6MG TABLET (FP) PO SCH (10:13)
[2017-09-12] MEDS: CLOPIDOGREL BISULFATE 75 MG TABLET (FP) PO SCH (10:13)
[2017-09-12] MEDS: LOSARTAN POTASSIUM 50 MG TABLET (FP) PO SCH (10:14)
[2017-09-12] MEDS: HEPARIN NA (PORCINE) 5,000 UNITS/ML 1ML VIAL SQ SCH (10:15)
--- NOTE | 2017-09-12 11:18 | DS ---
Physical Examination Vital Signs: Vital Signs Temperature 97.6 F 09/12/17 06:00 Pulse Rate 73 09/12/17 06:00 Respiratory Rate 18 09/12/17 06:00 Blood Pressure 104/56 09/12/17 06:00 O2 Sat by Pulse Oximetry (%) 97 09/11/17 21:00 Constitutional: Yes: Calm Neck: Yes: Trachea Midline Cardiovascular: Yes: Regular Rate and Rhythm, S1, S2 Respiratory: Yes: CTA Bilaterally Gastrointestinal: Yes: Normal Bowel Sounds, Soft Neurological: Yes: Alert, Oriented Labs: CBC, BMP 09/12/17 06:45 09/10/17 05:15 Discharge Summary Reason For Visit: ANEMIA; SHORTNESS OF BREATH Current Active Problems Anemia (Acute) Diabetes mellitus with hyperglycemia (Acute) Diabetes mellitus with hyperglycemia (Acute) Diabetes mellitus with hyperglycemia, with long-term current use of insulin ( Acute) Normocytic normochromic anemia (Acute) Shortness of breath (Acute) Hospital Course: - Primary Care Physician PCP: Russell Philip - Admission Chief Complaint: SOB, Weakness History of Present Illness: 67 y/o woman with PMH of: Anemia (last blood transfusion, July 2017), CAD (stent) , HTN, HLD, DM. Who presents to the ED with her family with increased SOB, VASQUEZ, fatigue, and weakness x 1 week. Patient's son reports that his mother has been very pale, weak and SOB. Patient's last admission 06/19/17-06/24/17- SOB, Anemia.Patient has been evaluated by GI in the past, where she had an endoscopy and colonoscopy, both which were negative. Patient's son also reports having intermittent CP non-radiating- now resolved. Patient reports having lower leg swelling. Patient reports after being discharged from her last admission, she has had dry itching skin. Patient denies fever, cough, CP, palpitations, AP, vomiting, diarrhe, dysuria. in hospital seen by GI and heme for prbc and iv venofer has had egd/colonoscopy 05/2017 recommended capsule study as outpatient CAD asa plavix statin BB and lasix on asa/plavix despite Condition: Stable - Instructions Referrals: Russell Philip MD [Primary Care Provider] - Disposition: HOME - Home Medications Comprehensive Discharge Medication List: Ambulatory Orders Aspirin [ASA -] 81 mg PO DAILY 08/02/12 Mometasone Furoate [Asmanex 220Mcg -] 2 inh IH DAILY PRN 08/02/12 Atorvastatin Ca [Lipitor] 40 mg PO HS #30 tablet 01/02/15 Clopidogrel Bisulfate [Plavix -] 75 mg PO DAILY 06/19/17 Metoprolol Succinate [Toprol Xl] 25 mg PO DAILY 06/19/17 Furosemide [Lasix -] 40 mg PO DAILY #30 tablet 06/24/17 Insulin (Levemir) [Levemir Vial] 45 units SQ BID@0700,2200 #0 ml 06/24/17 Insulin (Levemir) [Levemir Vial] 50 units SQ BID@0700,2200 #0 ml 06/24/17
--- NOTE | 2017-09-12 11:27 | PN ---
Progress Note (short form) - Note Progress Note: PULMONARY Denies shortness of breath, cough or wheezing. Vital Signs Period Temp Pulse Resp BP Sys/Lee Pulse Ox Last 24 Hr 97.6 F-98.2 F 70-77 18-20 104-150/56-70 97 Gen: NAD at rest Heart: RRR Lung: decreased breath sounds at the bases Abd: soft, nontender Ext: + nonpitting edema CBC, BMP 09/12/17 06:45 09/10/17 05:15 Active Medications Aspirin (Ecotrin -) 81 mg PO DAILY [facility] Last Admin: 09/12/17 10:13 Dose: 81 mg Atorvastatin Calcium (Lipitor -) 80 mg PO HS [facility] Last Admin: 09/11/17 22:38 Dose: 80 mg Clopidogrel Bisulfate (Plavix -) 75 mg PO DAILY [facility] Last Admin: 09/12/17 10:13 Dose: 75 mg Heparin Sodium (Porcine) (Heparin -) 5,000 unit SQ BID [facility] Last Admin: 09/12/17 10:15 Dose: 5,000 unit Insulin Aspart (Novolog Vial Sliding Scale -) 1 vial SQ [facility]; Protocol Last Admin: 09/12/17 06:48 Dose: 5 units Insulin Detemir (Levemir Vial) 25 units SQ HS [facility] Last Admin: 09/11/17 22:41 Dose: 25 units Insulin Detemir (Levemir Vial) 45 units SQ AM [facility] Last Admin: 09/12/17 06:49 Dose: 45 units Losartan Potassium (Cozaar -) 100 mg PO DAILY [facility] Last Admin: 09/12/17 10:14 Dose: Not Given Metoprolol Succinate (Toprol Xl -) 50 mg PO DAILY [facility] Last Admin: 09/12/17 10:13 Dose: 50 mg Mupirocin (Bactroban 2% Ointment -) 1 applic TP TID [facility] Last Admin: 09/12/17 06:50 Dose: 1 applic Senna (Senna -) 1 tab PO BID [facility] Last Admin: 09/12/17 10:13 Dose: Not Given Simethicone (Mylicon Liquid -) 40 mg PO QID PRN PRN Reason: GAS Last Admin: 09/08/17 17:06 Dose: 40 mg A/P Dyspnea resolved Anemia CAD HTN DM Hyperlipidemia - monitor H/H - continue cardiac meds - capsule endoscopy as outpt - d/c planning in progress
[2017-09-12 13:12] VITALS: BP 154/66; PULSE 71; TEMP 98.2
[2017-09-12 16:32] LABS: FREE KAPPA,SERUM 38.5 mg/L (3.3-19.4)
== END 2017-09-12 14:13 | disposition home or self-care (01) ==
LOC: JER 18:05 → JERBED 19:44 → J5S 21:34
PROVIDERS: ADMIT Internal Medicine; ATTEND Family Medicine
PROC: 30233N1 Transfusion of Nonautologous Red Blood Cells into Peripheral Vein, Percutaneous Approach (ICD-10-PCS; principal; 2017-09-07)
PROC: 3E033GC Introduction of Other Therapeutic Substance into Peripheral Vein, Percutaneous Approach (ICD-10-PCS; 2017-09-07)
PROC: 3E013GC Introduction of Other Therapeutic Substance into Subcutaneous Tissue, Percutaneous Approach (ICD-10-PCS; 2017-09-07)
DX: D64.9 Anemia, unspecified (principal); R06.02 Shortness of breath; I10 Essential (primary) hypertension; I25.10 Atherosclerotic heart disease of native coronary artery without angina pectoris; I25.2 Old myocardial infarction; E78.5 Hyperlipidemia, unspecified; E11.65 Type 2 diabetes mellitus with hyperglycemia; E04.9 Nontoxic goiter, unspecified; N17.9 Acute kidney failure, unspecified; R07.89 Other chest pain; K59.00 Constipation, unspecified; M79.672 Pain in left foot; Z79.4 Long term (current) use of insulin; Z79.82 Long term (current) use of aspirin; Z88.0 Allergy status to penicillin; Z95.5 Presence of coronary angioplasty implant and graft
CPT/HCPCS: 36415; 36430; 71045-TC-FY; 71250-TC; 80048; 80053; 81003; 81015; 82272; 82550; 82607; 82728; 82746; 82784; 82962; 83036; 83540; 83550; 83735; 83880; 83883; 84100; 84155; 84165; 84439; 84443; 84484; 85025; 85027; 85610; 86038; 86334; 86850; 86900; 86901; 86922; 87086; 93005; 93010; 96365; 96367; 96372; 96375; 97116-GP; 97161-GP; 99284-25; G0378; J1644; J1756; P9038; P9058

== ENCOUNTER 2017-10-13 08:55 | Day surgery (SDC) | payer BC ==
[2017-10-13] MEDS ORDERED: IRON SUCROSE INJECTION 200 MG in SODIUM CHLORIDE 100 ML IVPB ONE (10:00)
[2017-10-13 10:21] VITALS: TEMP 98.2
[2017-10-13 10:35] LABS: HEMATOCRIT 26.5 % (32.4-45.2); HEMOGLOBIN 8.5 GM/dL (10.7-15.3); MCH 28.2 pg (25.7-33.7); MCHC 32.3 g/dl (32.0-36.0); MEAN CELL VOLUME 87.4 fl (80-96); MEAN PLT VOLUME 11.1 fl (7.5-11.1); PLATELET COUNT 202 K/MM3 (134-434); RBC 3.03 M/mm3 (3.60-5.2); WHITE BLOOD COUNT 6.9 K/mm3 (4.0-10.0)
[2017-10-13 12:08] VITALS: BP 154/75; PULSE 74
== END 2017-10-13 11:30 | disposition home or self-care (01) ==
LOC: JINFUSION 08:55 → J7W 09:07 → JINFUSION 11:30
PROVIDERS: ATTEND Family Medicine
PROC: 3E033GC Introduction of Other Therapeutic Substance into Peripheral Vein, Percutaneous Approach (ICD-10-PCS; principal; 2017-10-13)
DX: D50.9 Iron deficiency anemia, unspecified (principal)
CPT/HCPCS: 36415; 85027; 96365; J1756

== ENCOUNTER 2018-03-21 11:47 | Inpatient (IN) | payer BC, OTHER ==
--- NOTE | 2018-03-21 12:40 | PDOC ---
History of Present Illness - General Chief Complaint: Shortness of Breath Stated Complaint: SOB Time Seen by Provider: 03/21/18 12:10 - History of Present Illness Initial Comments: 03/21/18 12:39 This is a 67 year old female with a PMH of Anemia (last blood transfusion, July 2017), CAD (stent), HTN, HLD, and DM. She presented to the ED with increased SOB, BAUTISTA, fatigue, and weakness x 1 week. Patient's son reports that his mother has been very pale, weak and SOB. She also complains of left sided chest pain which is dull and constant. Additionally, she has bilateral lower extremity edema. Patient's last admission was in August 2017 for SOB, Anemia.Patient has been evaluated by GI in the past, where she had an endoscopy and colonoscopy, both which were negative. Recent travel to the [facility] back 3 weeks ago. All of current symptoms are chronic but worsened. PCP: Russell Philip. 03/21/18 13:04 Past History - Past Medical History Allergies/Adverse Reactions: Allergies Allergy/AdvReac Type Severity Reaction Status Date / Time Penicillins Allergy Difficulty Verified 03/21/18 11:56 Breathing Home Medications: Ambulatory Orders Aspirin [ASA -] 81 mg PO DAILY 08/02/12 Mometasone Furoate [Asmanex 220Mcg -] 2 inh IH DAILY PRN 08/02/12 Atorvastatin Ca [Lipitor] 40 mg PO HS #30 tablet 01/02/15 Clopidogrel Bisulfate [Plavix -] 75 mg PO DAILY 06/19/17 Furosemide [Lasix -] 40 mg PO DAILY #30 tablet 06/24/17 Atorvastatin Ca [Lipitor] 80 mg PO HS #30 tablet MDD 1 09/12/17 Insulin (Levemir) [Levemir Vial] 25 units SQ HS #100 units MDD 1 09/12/17 Insulin (Levemir) [Levemir Vial] 45 units SQ AM #120 units MDD 1 09/12/17 Losartan Potassium [Cozaar -] 100 mg PO DAILY #60 tablet MDD 1 09/12/17 Metoprolol Succinate [Toprol XL -] 50 mg PO DAILY #20 tab.sr.24h MDD 1 09/12/17 Asthma: Yes Cardiac Disorders: Yes (Yes,NE) COPD: No CHF: Yes Diabetes: Yes HTN: Yes Hypercholesterolemia: Yes - Surgical History Abdominal Surgery: Yes Cardiac Surgery: Yes (angiocath card stent x2) Orthopedic Surgery: Yes (knee surgery) - Immunization History Immunization Up to Date: Yes - Suicide/Smoking/Psychosocial Hx Smoking Status: No Smoking History: Unknown if ever smoked Have you smoked in the past 12 months: No Number of Cigarettes Smoked Daily: 0 Information on smoking cessation initiated: No Hx Alcohol Use: No Drug/Substance Use Hx: No Substance Use Type: None Hx Substance Use Treatment: No Respiratory Specific PMHX - Complaint Specific PMHX Angina: No Pulmonary Embolus: No Review of Systems - Review of Systems Able to Perform ROS?: Yes Is the patient limited Setswana proficient: No Constitutional: No: Symptoms Reported HEENTM: No: Symptoms Reported Respiratory: Yes: See HPI Cardiac (ROS): Yes: See HPI ABD/GI: No: Symptoms Reported : No: Symptoms Reported Musculoskeletal: No: Symptoms Reported Integumentary: Yes: See HPI Neurological: No: Symptoms reported *Physical Exam - Vital Signs Last Vital Signs Temp Pulse Resp BP Pulse Ox 97.8 F 82 16 163/62 98 03/21/18 11:51 03/21/18 11:51 03/21/18 11:51 03/21/18 11:51 03/21/18 11:51 - Physical Exam General Appearance: Yes: Disheveled, Obese HEENT: positive: EOMI, TEO, Normal ENT Inspection Respiratory/Chest: positive: Lungs Clear, Decreased Breath Sounds. negative: Chest Tender, Normal Breath Sounds Cardiovascular: positive: Regular Rhythm, Regular Rate, S1, S2 Gastrointestinal/Abdominal: positive: Normal Bowel Sounds, Flat, Soft. negative : Tender Musculoskeletal: positive: Normal Inspection. negative: CVA Tenderness Extremity: positive: Normal Capillary Refill, Swelling, Calf Tenderness ( bilaterally) Integumentary: positive: Normal Color, Dry, Warm Neurologic: positive: Fully Oriented, Alert, Normal Mood/Affect, Normal Response , Motor Strength 5/5 Moderate Sedation - Procedure Monitoring Vital Signs: Procedure Monitoring Vital Signs Temperature 97.8 F 03/21/18 11:51 Pulse Rate 82 03/21/18 11:51 Respiratory Rate 16 03/21/18 11:51 Blood Pressure 163/62 03/21/18 11:51 O2 Sat by Pulse Oximetry (%) 98 03/21/18 11:51 ED Treatment Course - LABORATORY CBC & Chemistry Diagram: 03/21/18 12:12 03/21/18 12:37 - RADIOLOGY Radiology Studies Ordered: Category Date Time Status CHEST PA & LAT [RAD] Stat Radiology 03/21/18 12:33 Ordered Medical Decision Making - Medical Decision Making 03/21/18 13:08 CHF exacerbation vs PNA vs NE vs PE Due to the previous previosu history of CHF and symptoms of bautista we will check if exacerbation with cxr and bnp as well as ekg and trop to r/o NE due to patient's chest pain and extensive mi/stent history. Will also check H&H as the patient's chornic anemia could explain why she is sob and weak. PE is also on the differential, hoever the has a Well's score of zero. No previous dvt or PE, legs are equally swollen, not tachy, not primary diagnosis, no immobilized for 3 days, no cancer or previous surgery as far as the patient know and no hemoptysis. Will investigate for PE if everything else is negative,.. CXR: unremarquable except for cardiomegaly. EKG unchanged from previous. 03/21/18 14:11 elevated troponins and elevated BNP. The trops seems related to myocardial demand, as there are no changed in EKG. Will obtain chest CTA to r/o PE 03/21/18 15:44 No evidence of PE on CTA, cardiomegaly with possible mild congestion. Will admit to tele obs under hospitalist Dr. Mcneal 03/21/18 17:14 *DC/Admit/Observation/Transfer Diagnosis at time of Disposition: Acute exacerbation of CHF (congestive heart failure) - Discharge Dispostion Condition at time of disposition: Guarded Decision to Admit order: Yes - Referrals Referrals: Russell Philip MD [Primary Care Provider] - - Patient Instructions - Post Discharge Activity
[2018-03-21 13:16] LABS: BASO % 0.9 % (0-2.0); EOS % 2.7 % (0-4.5); HEMATOCRIT 27.4 % (32.4-45.2); HEMOGLOBIN 9.3 GM/dL (10.7-15.3); LYMPH % 19.1 % (8-40); MCH 29.6 pg (25.7-33.7); MCHC 34.1 g/dl (32.0-36.0); MEAN CELL VOLUME 86.9 fl (80-96); MEAN PLT VOLUME 10.5 fl (7.5-11.1); MONO % 6.5 % (3.8-10.2); NEUT % 70.8 % (42.8-82.8); PLATELET COUNT 223 K/MM3 (134-434); RBC 3.16 M/mm3 (3.60-5.2); RDW 15.4 % (11.6-15.6); WHITE BLOOD COUNT 6.6 K/mm3 (4.0-10.0)
[2018-03-21 13:46] LABS: N-TERMINAL BNP 1407.8 pg/ml (5-125)
[2018-03-21 13:50] LABS: ALBUMIN 2.8 g/dl (3.4-5.0); ALK PHOS 72 U/L (45-117); ANION GAP 5 MMOL/L (8-16); BILIRUBIN,TOTAL 0.2 mg/dL (0.2-1); BLOOD UREA NITROGEN 27 mg/dL (7-18); CALCIUM 8.1 mg/dL (8.5-10.1); CHLORIDE 107 mmol/L (98-107); CO2 27 mmol/L (21-32); POTASSIUM 4.6 mmol/L (3.5-5.1); SGOT/AST 10 U/L (15-37); SGPT/ALT 17 U/L (13-61); SODIUM 139 mmol/L (136-145); TOT PROT 6.2 g/dl (6.4-8.2)
[2018-03-21 13:56] LABS: GLUCOSE,RANDOM 391 mg/dL (74-106)
[2018-03-21 15:34] LABS: URINE APPEARANCE CLOUDY; URINE BILIRUBIN NEGATIVE (<2.0 mg/dL); URINE COLOR LTYELLOW; URINE GLUCOSE (UA) 3+ (NEGATIVE); URINE KETONE NEGATIVE (NEGATIVE); URINE LEUK ESTERASE 3+ (NEGATIVE); URINE NITRITE POSITIVE (NEGATIVE); URINE PROTEIN 2+ (NEGATIVE); URINE UROBILINOGEN NEGATIVE mg/dL (0.2-1.0)
[2018-03-21] MEDS ORDERED: SODIUM CHLORIDE 1,000 ML IV STA (15:35)
[2018-03-21] MEDS ORDERED: FUROSEMIDE 40 MG/4 ML INJECTABLE VIAL IVPUSH ONE (15:36)
[2018-03-21 15:37] LABS: EPI CELLS MANY /HPF (FEW); URINE BACTERIA MANY /hpf (NONE SEEN); URINE MUCUS RARE
[2018-03-21] MEDS ORDERED: FUROSEMIDE 40 MG/4 ML INJECTABLE VIAL ONE (15:37)
--- NOTE | 2018-03-21 15:46 | PDOC ---
Attending Attestation - Medical Decision Making 03/21/18 16:11 Dr. Payne was paged at this time. Documentation prepared by Delilah Lozano, acting as ophthalmic medical technologist for Dann Price MD <Delilah Lozano - Last Filed: 03/21/18 16:16> - Resident Resident Name: Ash Barros - ED Attending Attestation I have performed the following: I have examined & evaluated the patient, The case was reviewed & discussed with the resident, I agree w/resident's findings & plan, Exceptions are as noted - HPI HPI: 03/21/18 15:45 The patient is a 67 year old female, with a significant past medical history of anemia, diabetes, hypertension, hyperlipidemia, [place], CAD, and asthma, who presents to the emergency department with generalized weakness, shortness of breath, dyspnea on exertion, and constant chest pain which has increasing over the past week. States pain is left sided, worse with deep inspiration. The patient denies headache and dizziness. The patient denies fever, chills, nausea, vomit, diarrhea and constipation. The patient denies dysuria, frequency , urgency and hematuria. Allergies: Penicillins Past Surgical History: Knee surgery, Angiocath card stents x2 Social History: Non smoker. No ETOH or recreational drug use. PCP: Dr. Philip - Physicial Exam PE: 03/21/18 15:45 "GENERAL: Awake, alert, and fully oriented, in no acute distress. HEAD: No signs of trauma EYES: PERRLA, EOMI, sclera anicteric, conjunctiva clear ENT: Auricles normal inspection, hearing grossly normal, nares patent, oropharynx clear without exudates. Moist mucosa NECK: Nontender, no stepoffs, Normal ROM, supple, no lymphadenopathy, JVD, or masses LUNGS: Breath sounds equal, clear to auscultation bilaterally. No wheezes, and no crackles HEART: Regular rate and rhythm, normal S1 and S2, no murmurs, rubs or gallops ABDOMEN: Soft, nontender, normoactive bowel sounds. No guarding, no rebound. No masses EXTREMITIES: Normal range of motion, no edema. No clubbing or cyanosis. No cords, erythema, or tenderness NEUROLOGICAL: Cranial nerves II through XII intact. 5/5 strength and sensation in all extremities, Normal speech, normal gait, normal cerebellar function SKIN: Warm, Dry, normal turgor, no rashes or lesions noted. - Critical Care Time Total Critical Care Time: 60 Critical Care Statement: The care of this patient involved high complexity decision making to prevent further life threatening deterioration of the patient 's condition and/or to evaluate & treat vital organ system(s) failure or risk of failure. - Medical Decision Making 03/21/18 15:45 67 F with CP and SOB. Will evaluate for CHF given pt's history. Also consider PNA. Pt also [place] Consider PE. EKG with no ischemic changes ,but will also r/o ACS. - Labs, trop, BNP - CXR - CTA chest if indicated - Lasix - Admit tele <Dann Price - Last Filed: 03/24/18 00:28>
--- NOTE | 2018-03-21 16:45 | EKG ---
Test Reason : Blood Pressure : / mmHG Vent. Rate : 075 BPM Atrial Rate : 075 BPM P-R Int : 166 ms QRS Dur : 114 ms QT Int : 412 ms P-R-T Axes : 038 -29 118 degrees QTc Int : 460 ms NORMAL SINUS RHYTHM LEFT VENTRICULAR HYPERTROPHY WITH REPOLARIZATION ABNORMALITY CANNOT RULE OUT SEPTAL INFARCT , AGE UNDETERMINED ABNORMAL ECG WHEN COMPARED WITH ECG OF 07-SEP-2017 18:33, NO SIGNIFICANT CHANGE WAS FOUND Confirmed by CHANTAL PIKE, MANI ([id number]) on 03/21/2018 4:44:56 PM Referred By: Confirmed By:MANI CORNEJO MD
[2018-03-21 16:47] LABS: INR 0.96 (0.83-1.09); PROTHROMBIN TIME (PATIENT) 11.3 SEC (9.7-13.0)
[2018-03-21 16:49] LABS: ACTIVATED PTT 26.8 SECONDS (25.2-36.5)
[2018-03-21] MEDS ORDERED: MOMETASONE FUROATE 220 MCG/IH INHALER IH PRN (17:42)
--- NOTE | 2018-03-21 17:45 | HP ---
CHIEF COMPLAINT: worsening shortness of breath, chest pain PCP: Dr. Philip HISTORY OF PRESENT ILLNESS: Miri Shukla is a 67 year old female with a PMH of Anemia (last blood transfusion, July 2017), CAD (stent),HTN, HLD, and DM. She presented to the ED with increased SOB, VASQUEZ, fatigue, and weakness x 1 week. pt seen in ED, just came from bathroom, Short of breath. As per ED note, pt last admitted in August 2017, for SOB, anemia, GI workup (Colonoscopy, Endoscopy negative), recent travel to [facility] 3 weeks ago. ED note, current symptoms are chronic, worsened over past week. ER course was notable for: (1)BNP 1400 (2) Elevated trop 0.12 (3)shortness of breath, chest pain Recent Travel: [facility] 3 weeks ago PAST MEDICAL HISTORY:Anemia, HTN, HLD, DM, CAD s/p stent, [place] PAST SURGICAL HISTORY: Abd sx, knee sx, Angio cath, stent x2 Social History: Smoking:denies Alcohol:denies Drugs: Denies Family History: Allergies Penicillins Allergy (Verified 03/21/18 11:56) Difficulty Breathing HOME MEDICATIONS: Home Medications Medication Instructions Recorded Aspirin [ASA -] 81 mg PO DAILY 08/02/12 Mometasone Furoate [Asmanex 220Mcg 2 inh IH DAILY PRN 08/02/12 -] Atorvastatin Ca [Lipitor] 40 mg PO HS #30 tablet 01/02/15 Clopidogrel Bisulfate [Plavix -] 75 mg PO DAILY 06/19/17 Furosemide [Lasix -] 40 mg PO DAILY #30 tablet 06/24/17 Atorvastatin Ca [Lipitor] 80 mg PO HS #30 tablet MDD 1 09/12/17 Insulin (Levemir) [Levemir Vial] 25 units SQ HS #100 units MDD 1 09/12/17 Insulin (Levemir) [Levemir Vial] 45 units SQ AM #120 units MDD 1 09/12/17 Losartan Potassium [Cozaar -] 100 mg PO DAILY #60 tablet MDD 1 09/12/17 Metoprolol Succinate [Toprol XL -] 50 mg PO DAILY #20 tab.sr.24h MDD 1 09/12/17 REVIEW OF SYSTEMS CONSTITUTIONAL: Absent: fever, chills, diaphoresis, generalized weakness, malaise, loss of appetite, weight change HEENT: Absent: rhinorrhea, nasal congestion, throat pain, throat swelling, difficulty swallowing, mouth swelling, ear pain, eye pain, visual changes CARDIOVASCULAR: +chest pain, left sided Absent: syncope, palpitations, irregular heart rate, lightheadedness, peripheral edema RESPIRATORY: +SOB on exertion Absent: cough, dyspnea with exertion, orthopnea, wheezing, stridor, hemoptysis GASTROINTESTINAL: Absent: abdominal pain, abdominal distension, nausea, vomiting, diarrhea, constipation, melena, hematochezia GENITOURINARY: Absent: dysuria, frequency, urgency, hesitancy, hematuria, flank pain, genital pain MUSCULOSKELETAL: Absent: myalgia, arthralgia, joint swelling, back pain, neck pain SKIN: Absent: rash, itching, pallor HEMATOLOGIC/IMMUNOLOGIC: Absent: easy bleeding, easy bruising, lymphadenopathy, frequent infections ENDOCRINE: Absent: unexplained weight gain, unexplained weight loss, heat intolerance, cold intolerance NEUROLOGIC: Absent: headache, focal weakness or paresthesias, dizziness, unsteady gait, seizure, mental status changes, bladder or bowel incontinence PSYCHIATRIC: Absent: anxiety, depression, suicidal or homicidal ideation, hallucinations. PHYSICAL EXAMINATION Vital Signs - 24 hr 03/21/18 11:51 Temperature 97.8 F Pulse Rate 82 Respiratory 16 Rate Blood Pressure 163/62 O2 Sat by Pulse 98 Oximetry (%) GENERAL: Awake, alert, and fully oriented, in no acute distress. HEAD: Normal with no signs of trauma. EYES: Pupils equal, round and reactive to light, extraocular movements intact, sclera anicteric, conjunctiva clear. No lid lag. EARS, NOSE, THROAT: Ears normal, nares patent, oropharynx clear without exudates. Moist mucous membranes. NECK: Normal range of motion, supple without lymphadenopathy, JVD, or masses. LUNGS: Breath sounds equal, clear to auscultation bilaterally. No wheezes, and no crackles. No accessory muscle use. HEART: Regular rate and rhythm, normal S1 and S2 without murmur, rub or gallop. ABDOMEN: Soft, nontender, not distended, normoactive bowel sounds, no guarding, no rebound, no masses. No hepatomegaly or splenomegaly. MUSCULOSKELETAL: Normal range of motion at all joints. No bony deformities or tenderness. No CVA tenderness. UPPER EXTREMITIES: 2+ pulses, warm, well-perfused. No cyanosis. No clubbing. No peripheral edema. LOWER EXTREMITIES: 2+ pulses, warm, well-perfused. No calf tenderness. bilateral LE +3 peripheral edema. NEUROLOGICAL: Cranial nerves II-XII intact. Normal speech. Normal gait. PSYCHIATRIC: Cooperative. Good eye contact. Appropriate mood and affect. SKIN: Warm, dry, normal turgor, no rashes or lesions noted, normal capillary refill. Laboratory Results - last 24 hr 03/21/18 03/21/18 03/21/18 12:12 12:37 12:37 WBC 6.6 RBC 3.16 L Hgb 9.3 L Hct 27.4 L MCV 86.9 MCH 29.6 MCHC 34.1 RDW 15.4 Plt Count 223 MPV 10.5 Absolute Neuts (auto) 4.7 Neutrophils % 70.8 Lymphocytes % 19.1 Monocytes % 6.5 Eosinophils % 2.7 Basophils % 0.9 Nucleated RBC % 0 PT with INR INR PTT (Actin FS) Sodium 139 Potassium 4.6 Chloride 107 Carbon Dioxide 27 Anion Gap 5 L BUN 27 H Creatinine 1.0 Creat Clearance w eGFR 55.14 Random Glucose 391 H* Calcium 8.1 L Total Bilirubin 0.2 AST 10 L ALT 17 Alkaline Phosphatase 72 Troponin I 0.12 H B-Natriuretic Peptide 1407.8 H Total Protein 6.2 L Albumin 2.8 L Urine Color Urine Appearance Urine pH Ur Specific [place] Urine Protein Urine Glucose (UA) Urine Ketones Urine Blood Urine Nitrite Urine Bilirubin Urine Urobilinogen Ur Leukocyte Esterase Urine WBC (Auto) Urine RBC (Auto) Ur Epithelial Cells Urine Bacteria Urine Mucus 03/21/18 03/21/18 15:20 16:20 WBC RBC Hgb Hct MCV MCH MCHC RDW Plt Count MPV Absolute Neuts (auto) Neutrophils % Lymphocytes % Monocytes % Eosinophils % Basophils % Nucleated RBC % PT with INR 11.30 INR 0.96 PTT (Actin FS) 26.8 Sodium Potassium Chloride Carbon Dioxide Anion Gap BUN Creatinine Creat Clearance w eGFR Random Glucose Calcium Total Bilirubin AST ALT Alkaline Phosphatase Troponin I B-Natriuretic Peptide Total Protein Albumin Urine Color Ltyellow Urine Appearance Cloudy Urine pH 6.0 Ur Specific [place] 1.030 Urine Protein 2+ H Urine Glucose (UA) 3+ H D Urine Ketones Negative Urine Blood Negative Urine Nitrite Positive Urine Bilirubin Negative Urine Urobilinogen Negative Ur Leukocyte Esterase 3+ H Urine WBC (Auto) 68 Urine RBC (Auto) 23 Ur Epithelial Cells Many Urine Bacteria Many Urine Mucus Rare ASSESSMENT/PLAN: Miri Shukla is a 67 year old female with a PMH of Anemia (last blood transfusion, July 2017), CAD (stent),HTN, HLD, and DM, CHF, admitted for Admitting Diagnosis CHF Exacerbation Chest pain Chronic Problems HTN HLD CAD Anemia DM A/P: #Acute respiratory failure 2/2 CHF #CHF #Chest pain -admit to tele -serial trop, first elevated, likely demand ischemia -EKG NSR -Cardio Consult -Echo ordered for AM -IV Lasix 40mg Q12hrs -Daily weights, I/O -CTA chest neg for PE -oxygen NC PRN #HTN #HLD #CAD s/p stent -on plavix -on BB, losaartan, statin #DM -Monitor FS -ISC -Levemir 30 units QHS (pt was unsure of dosing for AM) #hx of anemia -monitor hg Dispo: requires inpatient treatment Full Code GI/DVT Prophylaxis Visit type - Emergency Visit Emergency Visit: Yes Care time: The patient presented to the Emergency Department on the above date and was hospitalized for further evaluation of their emergent condition. - New Patient This patient is new to me today: Yes Date on this admission: 03/21/18 - Critical Care Critical Care patient: No
[2018-03-21] MEDS ORDERED: ATORVASTATIN CA 40 MG TABLET (FP) ONE (22:22)
[2018-03-21] MEDS ORDERED: INSULIN REGULAR HUMAN 100 UNITS/ML *VIAL ONE (22:22)
[2018-03-21] MEDS ORDERED: HEPARIN NA (PORCINE) 5,000 UNITS/ML 1ML VIAL ONE (22:22)
[2018-03-21] MEDS ORDERED: INSULIN (LEVEMIR) 100 UNITS/ML UNITS SQ ONE (22:22)
[2018-03-21] MEDS: HEPARIN NA (PORCINE) 5,000 UNITS/ML 1ML VIAL SQ SCH (22:27)
[2018-03-21] MEDS: ATORVASTATIN CA 40 MG TABLET (FP) PO SCH (22:27)
[2018-03-21] MEDS: INSULIN SLIDING SCALE (NOVOLOG) 1 VIAL SQ SCH (23:25)
[2018-03-21] MEDS: INSULIN (LEVEMIR) 100 UNITS/ML UNITS SQ SCH (23:25)
[2018-03-22 05:46] VITALS: BMI 51.3
[2018-03-22 06:30] LABS: BASO % 0.4 % (0-2.0); EOS % 2.7 % (0-4.5); HEMATOCRIT 32.1 % (32.4-45.2); HEMOGLOBIN 10.1 GM/dL (10.7-15.3); LYMPH % 20.7 % (8-40); MCH 28.1 pg (25.7-33.7); MCHC 31.6 g/dl (32.0-36.0); MEAN CELL VOLUME 89.1 fl (80-96); MEAN PLT VOLUME 10.9 fl (7.5-11.1); MONO % 8.6 % (3.8-10.2); NEUT % 67.6 % (42.8-82.8); PLATELET COUNT 231 K/MM3 (134-434); RDW 15.3 % (11.6-15.6); WHITE BLOOD COUNT 8.1 K/mm3 (4.0-10.0)
[2018-03-22] MEDS: FUROSEMIDE 40 MG/4 ML INJECTABLE VIAL IVPUSH SCH ×2 (06:36→14:51)
[2018-03-22] MEDS: INSULIN SLIDING SCALE (NOVOLOG) 1 VIAL SQ SCH ×4 (06:36→23:28)
[2018-03-22 07:04] LABS: ALK PHOS 76 U/L (45-117); ANION GAP 7 MMOL/L (8-16); BILIRUBIN,TOTAL 0.3 mg/dL (0.2-1); BLOOD UREA NITROGEN 27 mg/dL (7-18); CALCIUM 8.6 mg/dL (8.5-10.1); CHLORIDE 104 mmol/L (98-107); CHOLESTEROL 234 mg/dL (50-200); CO2 28 mmol/L (21-32); CREATININE 0.9 mg/dL (0.55-1.3); GLUCOSE,RANDOM 211 mg/dL (74-106); HDL CHOLESTEROL 41 mg/dL (40-60); MAGNESIUM 2.2 mg/dL (1.8-2.4); POTASSIUM 4.5 mmol/L (3.5-5.1); SGOT/AST 11 U/L (15-37); SGPT/ALT 16 U/L (13-61); SODIUM 139 mmol/L (136-145); TOT PROT 6.6 g/dl (6.4-8.2); TRIGLYCERIDES 346 mg/dL (0-150)
[2018-03-22] MEDS: ASPIRIN 81 MG CHEWABLE TABLETS PO SCH (09:23)
[2018-03-22] MEDS: HEPARIN NA (PORCINE) 5,000 UNITS/ML 1ML VIAL SQ SCH ×2 (09:24→23:28)
[2018-03-22] MEDS: PANTOPRAZOLE 40 MG TABLET (FP) PO SCH (09:24)
[2018-03-22] MEDS: CLOPIDOGREL BISULFATE 75 MG TABLET (FP) PO SCH (09:24)
[2018-03-22] MEDS: LOSARTAN POTASSIUM 50 MG TABLET (FP) PO SCH (09:31)
--- NOTE | 2018-03-22 13:12 | PN ---
Progress Note (short form) - Note Progress Note: ID CONSULT DICTATED ASYMPTOMATIC BACTERURIA OBSERVE OFF ANTIBIOTICS
--- NOTE | 2018-03-22 13:40 | CONS ---
DATE OF CONSULTATION: DATE OF DICTATION: 03/22/2018 HISTORY: The patient is a 67-year-old female evaluated for positive urine culture. She was admitted to the hospital on March 21, 2018 with worsening shortness of breath for 1 week prior to admission associated with left-sided chest pain and increased lower extremity edema. A CT angiogram was performed of the chest and was negative for pulmonary embolism or pneumonia. She will be seen in consultation by Cardiology. 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 She denies any urinary tract symptoms. She denies any dysuria or hematuria. No complaints of urgency or frequency. No suprapubic or flank pain. History was obtained with her daughter present acting as aviation maintenance technician. She denies any fever or chills. PAST MEDICAL HISTORY: Positive for coronary artery disease, chronic anemia, hypertension, hyperlipidemia, diabetes mellitus. ALLERGIES: PENICILLIN (difficulty breathing). MEDICATIONS: Include Lipitor, Plavix, Lasix, Levemir, Cozaar, Toprol. SOCIAL HISTORY: Lives at home with family members. Recently travelled to the [facility] returning before . She was well while she was there. No ill contacts. She does not receive influenza or pneumococcal vaccines by choices. SYSTEMS REVIEW: Neurologic: No loss of consciousness, seizure activity, focal weakness. Cardiac: As per HPI. Respiratory: As per HPI. Gastrointestinal: Negative vomiting or diarrhea. Genitourinary: As per HPI. LABORATORY DATA: White count 8.1, hemoglobin 32.1, platelet count 231, creatinine 0.9. Urinalysis 68. Chest x-ray negative. PHYSICAL EXAMINATION: General: She is awake and alert. She is supine in bed. She is not acutely short of breath. Vital Signs: Temperature 98, blood pressure 139/57, pulse 73 and regular, respirations 20 per minute. HEENT: Sclerae anicteric. Heart: Sounds S1, S2. Lungs: Clear. Abdomen: Soft, obese, nontender. No suprapubic or flank tenderness. Extremities: Positive edema 3+. IMPRESSION: 1. Asymptomatic bacteriuria. 2. PENICILLIN allergy. 3. Probable decompensated congestive heart failure. PLAN: Observation off antibiotic therapy for asymptomatic bacteriuria. Case discussed with the patient's daughter present at the time of the examination. Thank you for the kind referral. JAMES ADAME M.D. [id number]
--- NOTE | 2018-03-22 16:37 | ECHO ---
Name: CARLOS ARCINIEGA Exam:Adult Echocardiogram Study Date: 03/22/2018 02:01 PM Age: 67 yrs Reason For Study: sob, chest pain Height: 59 in Weight: 250 lb BSA: 2.0 m2 MMode/2D Measurements & Calculations IVSd: 1.1 cm Ao root diam: 2.6 cm LVIDd: 5.0 cm LA dimension: 3.5 cm LVIDs: 2.8 cm LVPWd: 1.4 cm LVPWs: 2.1 cm EDV(Teich): 116.2 ml ESV(Teich): 30.8 ml Doppler Measurements & Calculations MV E max hitesh: 136.7 cm/sec Ao V2 max: 198.0 cm/sec MV A max hitesh: 111.1 cm/sec Ao max P.7 mmHg MV E/A: 1.2 MV dec time: 0.25 sec LV V1 max P.0 mmHg PA V2 max: 128.5 cm/sec LV V1 max: 111.6 cm/sec PA max P.6 mmHg Med Peak E' Hitesh: 4.2 cm/sec Med E/e': 32.6 Lat Peak E' Hitesh: 5.7 cm/sec Lat E/e': 24.2 Procedure A complete two-dimensional transthoracic echocardiogram was performed (2D, M-mode, Doppler and color flow Doppler). The study was technically difficult with many images being suboptimal in quality. Left Ventricle There is mild concentric left ventricular hypertrophy. The left ventricular ejection fraction is norm al. Ejection Fraction = 60-65%. No regional wall motion abnormalities noted. Right Ventricle The right ventricle is normal in size and function. Atria Normal left and right atrial size and function. Mitral Valve There is no mitral regurgitation noted. Tricuspid Valve There is trace tricuspid regurgitation. There was insufficient TR detected to calculate RV systolic p ressure. Aortic Valve No hemodynamically significant valvular aortic stenosis. No aortic regurgitation is present. Pulmonic Valve There is no pulmonic valvular regurgitation. Great Vessels The aortic root is normal size. Pericardium/Pleura There is no pericardial effusion. Interpretation Summary The study was technically difficult with many images being suboptimal in quality. There is mild concentric left ventricular hypertrophy. The left ventricular ejection fraction is normal. The right ventricle is normal in size and function. There is trace tricuspid regurgitation. MD Pierce Roman 03/22/2018 04:36 PM
--- NOTE | 2018-03-22 16:48 | CON.CARD ---
Consult Consult Specialty:: Cardiology Reason for Consultation:: Chest pain and dyspnea - History of Present Illness History of Present Illness: 67 year old female with a PMH of Anemia (last blood transfusion, July 2017), CAD p (mid LAD stent ),HTN, HLD, and DM. She presented to the ED with increased SOB, VASQUEZ, fatigue, and weakness x 1 week. She had recurrent chest pain left sided and mild with mild TP elevation. - History Source History Provided By: Patient - Past Medical History Cardio/Vascular: Yes: CAD (S/P STENTING), HTN, Hyperlipdemia. No: AFIB Pulmonary: Yes: Asthma, Sleep Apnea Gastrointestinal: Yes: GERD. No: Ascites Musculoskeletal: Yes: Osteoarthritis Endocrine: Yes: Diabetes Mellitus - Alcohol/Substance Use Hx Alcohol Use: No History of Substance Use: reports: None - Smoking History Smoking history: Unknown if ever smoked Have you smoked in the past 12 months: No Aproximately how many cigarettes per day: 0 - Social History ADL: Family Assistance History of Recent Travel: No Home Medications - Allergies Allergies/Adverse Reactions: Allergies Allergy/AdvReac Type Severity Reaction Status Date / Time Penicillins Allergy Difficulty Verified 03/21/18 11:56 Breathing - Home Medications Home Medications: Ambulatory Orders Mometasone Furoate [Asmanex 220Mcg -] 2 inh IH DAILY PRN 08/02/12 Atorvastatin Ca [Lipitor] 40 mg PO HS #30 tablet 01/02/15 Clopidogrel Bisulfate [Plavix -] 75 mg PO DAILY 06/19/17 Furosemide [Lasix -] 40 mg PO DAILY #30 tablet 06/24/17 Insulin (Levemir) [Levemir Vial] 25 units SQ HS #100 units MDD 1 09/12/17 Insulin (Levemir) [Levemir Vial] 45 units SQ AM #120 units MDD 1 09/12/17 Family Disease History - Family Disease History Family Disease History: Diabetes: Mother, Sister Review of Systems - Review of Systems Constitutional: reports: No Symptoms Eyes: reports: No Symptoms HENT: reports: No Symptoms Cardiovascular: reports: Chest Pain, Shortness of Breath Respiratory: reports: Cough, Exercise Intolerance, SOB on Exertion Vital Signs: Vital Signs Temperature 98.2 F 03/22/18 14:00 Pulse Rate 74 03/22/18 14:00 Respiratory Rate 20 03/22/18 14:00 Blood Pressure 154/64 12/27/18 14:00 O2 Sat by Pulse Oximetry (%) 96 03/21/18 22:14 Constitutional: Yes: Well Nourished, No Distress Eyes: Yes: Conjunctiva Clear, EOM Intact HENT: Yes: Normocephalic Neck: Yes: Supple, Trachea Midline JVD: No Heart Sounds: Yes: S1, S2 Murmur: No: Systolic Murmur, Diastolic Murmur Edema: Yes Edema: LLE: Trace, RLE: Trace - Other Data Labs, Other Data: CBC, BMP 03/22/18 05:30 03/22/18 05:30 INR, PTT INR 0.96 (0.83-1.09) 03/21/18 16:20 Troponin, BNP 03/21/18 03/22/18 12:37 05:30 Troponin I 0.10 H B-Natriuretic Peptide 1407.8 H Troponin, BNP 03/21/18 03/22/18 12:37 05:30 Troponin I 0.10 H B-Natriuretic Peptide 1407.[address] T changes. Imaging - Results Chest X-ray: Report Reviewed Cat Scan: Report Reviewed Problem List - Problems (1) Acute exacerbation of CHF (congestive heart failure) Code(s): I50.9 - HEART FAILURE, UNSPECIFIED (2) CAD (coronary artery disease) Code(s): I25.10 - ATHSCL HEART DISEASE OF [place] CORONARY ARTERY W/O ANG PCTRS (3) Chest pain Code(s): R07.9 - CHEST PAIN, UNSPECIFIED Assessment/Plan CAD with refractory angina sp mid LAD PCI in 04/2016. Normal LV function. Admitted with chest pain and dyspnea and mild TP elevaton without ECG changes of ischemia. Heart failure with preserved EF. Rec: Lexiscan nuclear stress test. Continue Plavix, ASA and metoprolol Continue Lasix 40mg IV BID. Follow daily weight.
--- NOTE | 2018-03-22 17:02 | PN ---
Progress Note, Physician Chief Complaint: EVENTS AND NOTES REVIEWED COUGHING DRY HACKING - Current Medication List Current Medications: Active Medications Aspirin (Asa -) 81 mg PO DAILY [facility] Last Admin: 03/22/18 09:23 Dose: Not Given Atorvastatin Calcium (Lipitor -) 40 mg PO HS [facility] Last Admin: 03/21/18 22:27 Dose: 40 mg Clopidogrel Bisulfate (Plavix -) 75 mg PO DAILY [facility] Last Admin: 03/22/18 09:24 Dose: 75 mg Furosemide (Lasix Injection -) 40 mg IVPUSH BID@0600,1400 [facility] Last Admin: 03/22/18 14:51 Dose: 40 mg Heparin Sodium (Porcine) (Heparin -) 5,000 unit SQ BID [facility] Last Admin: 03/22/18 09:24 Dose: 5,000 unit Insulin Aspart (Novolog Vial Sliding Scale -) 1 vial SQ [facility]; Protocol Last Admin: 03/22/18 12:08 Dose: 8 units Insulin Detemir (Levemir Vial) 30 units SQ HS [facility] Last Admin: 03/21/18 23:25 Dose: 30 units Losartan Potassium (Cozaar -) 100 mg PO DAILY [facility] Last Admin: 03/22/18 09:31 Dose: Not Given Metoprolol Succinate (Toprol Xl -) 50 mg PO DAILY [facility] Last Admin: 03/22/18 09:31 Dose: Not Given Mometasone Furoate (Asmanex 220mcg -) 2 puff IH DAILY PRN PRN Reason: ASTHMA Pantoprazole Sodium (Protonix -) 40 mg PO DAILY [facility] Last Admin: 03/22/18 09:24 Dose: 40 mg - Objective Vital Signs: Vital Signs Temperature 98.2 F 03/22/18 14:00 Pulse Rate 74 03/22/18 14:00 Respiratory Rate 20 03/22/18 14:00 Blood Pressure 154/64 03/22/18 14:00 O2 Sat by Pulse Oximetry (%) 96 03/21/18 22:14 Constitutional: Yes: Mild Distress Eyes: Yes: WNL HENT: Yes: WNL Neck: Yes: WNL Cardiovascular: Yes: WNL Respiratory: Yes: On Nasal O2, Rhonchi Gastrointestinal: Yes: WNL Genitourinary: Yes: WNL Musculoskeletal: Yes: WNL Extremities: Yes: WNL Edema: Yes Edema: LLE: Trace, RLE: Trace Peripheral Pulses WNL: Yes Integumentary: Yes: WNL Wound/Incision: Yes: Clean/Dry Neurological: Yes: WNL ...Motor Strength: WNL Psychiatric: Yes: WNL Labs: CBC, BMP 03/22/18 05:30 03/22/18 05:30 INR, PTT INR 0.96 (0.83-1.09) 03/21/18 16:20 Problem List - Problems (1) Acute exacerbation of CHF (congestive heart failure) Code(s): I50.9 - HEART FAILURE, UNSPECIFIED (2) HORACE (acute kidney injury) Code(s): N17.9 - ACUTE KIDNEY FAILURE, UNSPECIFIED (3) Acute hypoxemic respiratory failure Code(s): J96.01 - ACUTE RESPIRATORY FAILURE WITH HYPOXIA (4) Anemia Code(s): D64.9 - ANEMIA, UNSPECIFIED Qualifiers: Anemia type: unspecified type Qualified Code(s): D64.9 - Anemia, unspecified (5) Atypical chest pain Code(s): R07.89 - OTHER CHEST PAIN (6) CAD (coronary artery disease) Code(s): I25.10 - ATHSCL HEART DISEASE OF [place] CORONARY ARTERY W/O ANG PCTRS (7) Chest pain Code(s): R07.9 - CHEST PAIN, UNSPECIFIED
[2018-03-22] MEDS: ATORVASTATIN CA 40 MG TABLET (FP) PO SCH (23:24)
[2018-03-22] MEDS: INSULIN (LEVEMIR) 100 UNITS/ML UNITS SQ SCH (23:27)
[2018-03-23] MEDS: FUROSEMIDE 40 MG/4 ML INJECTABLE VIAL IVPUSH SCH (06:05)
[2018-03-23] MEDS: INSULIN SLIDING SCALE (NOVOLOG) 1 VIAL SQ SCH ×2 (06:05→11:19)
[2018-03-23] MEDS: PANTOPRAZOLE 40 MG TABLET (FP) PO SCH (09:34)
[2018-03-23] MEDS: LOSARTAN POTASSIUM 50 MG TABLET (FP) PO SCH (09:34)
[2018-03-23] MEDS: ASPIRIN 81 MG CHEWABLE TABLETS PO SCH (09:35)
[2018-03-23] MEDS: CLOPIDOGREL BISULFATE 75 MG TABLET (FP) PO SCH (09:35)
[2018-03-23] MEDS: HEPARIN NA (PORCINE) 5,000 UNITS/ML 1ML VIAL SQ SCH (09:35)
[2018-03-23 10:37] VITALS: BP 150/84; PULSE 72; TEMP 98
--- NOTE | 2018-03-23 11:32 | DS ---
Physical Examination Vital Signs: Vital Signs Temperature 98 F 03/23/18 10:00 Pulse Rate 72 03/23/18 10:00 Respiratory Rate 18 03/23/18 10:00 Blood Pressure 150/84 03/23/18 10:00 O2 Sat by Pulse Oximetry (%) 98 03/23/18 09:00 Constitutional: Yes: No Distress Eyes: Yes: WNL HENT: Yes: WNL Neck: Yes: WNL Cardiovascular: Yes: WNL Respiratory: Yes: WNL Gastrointestinal: Yes: WNL Musculoskeletal: Yes: WNL Extremities: Yes: WNL Edema: Yes Integumentary: Yes: WNL Wound/Incision: Yes: Clean/Dry Neurological: Yes: WNL ...Motor Strength: WNL Psychiatric: Yes: WNL Labs: CBC, BMP 03/22/18 05:30 03/22/18 05:30 Discharge Summary Reason For Visit: ACUTE ON CHRONIC CONGESTIVE HEART FAILURE Current Active Problems Acute exacerbation of CHF (congestive heart failure) (Acute) Procedures: Principal: CTA/CXR Hospital Course: ADMITTED ACUTE ON CHRONIC CHF, WILL NEED LASIX OUT PATIENT RESPONDED WELL TO IV LASIX. PATIENT REFUSED STRESS TEST AND FURTHER WORKUP. SHE IS AWARE OF THE RISKS AND POSSIBLE IF SHE DOESNT COMPLETE WORKUP. Condition: Improved - Instructions Diet, Activity, Other Instructions: DRKyle SCHWARTZ IN 1 WEEK CHECK YOUR RENAL FUNCTION OUTPATIENT Referrals: Russell Philip MD [Primary Care Provider] - Disposition: HOME - Home Medications Comprehensive Discharge Medication List: Ambulatory Orders Mometasone Furoate [Asmanex 220Mcg -] 2 inh IH DAILY PRN 08/02/12 Atorvastatin Ca [Lipitor] 40 mg PO HS #30 tablet 01/02/15 Clopidogrel Bisulfate [Plavix -] 75 mg PO DAILY 06/19/17 Furosemide [Lasix -] 40 mg PO DAILY #30 tablet 06/24/17 Insulin (Levemir) [Levemir Vial] 25 units SQ HS #100 units MDD 1 09/12/17 Insulin (Levemir) [Levemir Vial] 45 units SQ AM #120 units MDD 1 09/12/17 Furosemide [Lasix] 40 mg PO DAILY #30 tablet 03/23/18 Losartan Potassium [Cozaar -] 100 mg PO DAILY #30 tablet 03/23/18
--- NOTE | 2018-03-23 19:32 | PN ---
Progress Note (short form) - Note Progress Note: ADDENDUM: SYSTOLIC HEART FAILURE WITH NORMAL EF% Problem List - Problems (1) Acute exacerbation of CHF (congestive heart failure) Code(s): I50.9 - HEART FAILURE, UNSPECIFIED (2) HORACE (acute kidney injury) Code(s): N17.9 - ACUTE KIDNEY FAILURE, UNSPECIFIED (3) Acute hypoxemic respiratory failure Code(s): J96.01 - ACUTE RESPIRATORY FAILURE WITH HYPOXIA (4) Anemia Code(s): D64.9 - ANEMIA, UNSPECIFIED Qualifiers: Anemia type: unspecified type Qualified Code(s): D64.9 - Anemia, unspecified (5) Atypical chest pain Code(s): R07.89 - OTHER CHEST PAIN (6) CAD (coronary artery disease) Code(s): I25.10 - ATHSCL HEART DISEASE OF [place] CORONARY ARTERY W/O ANG PCTRS (7) Chest pain Code(s): R07.9 - CHEST PAIN, UNSPECIFIED
== END 2018-03-23 14:05 | disposition home or self-care (01) | DRG 291 ==
LOC: JER 11:47 → JERBED 15:45 → OBSVTOIN 17:32 → J4W 22:58
PROVIDERS: ADMIT Internal Medicine; ATTEND Family Medicine
DX: I11.0 Hypertensive heart disease with heart failure (principal); I50.21 Acute systolic (congestive) heart failure; J96.01 Acute respiratory failure with hypoxia; N17.9 Acute kidney failure, unspecified; I25.10 Atherosclerotic heart disease of native coronary artery without angina pectoris; E78.5 Hyperlipidemia, unspecified; E11.9 Type 2 diabetes mellitus without complications; J45.909 Unspecified asthma, uncomplicated; I25.2 Old myocardial infarction; Z95.5 Presence of coronary angioplasty implant and graft; D64.9 Anemia, unspecified; G47.30 Sleep apnea, unspecified; M19.90 Unspecified osteoarthritis, unspecified site; R07.89 Other chest pain
CPT/HCPCS: 36415; 71046-TC-FY; 71275-TC; 80053; 80061; 81003; 81015; 82962; 83036; 83721; 83735; 83880; 84443; 84484; 85025; 85610; 85730; 86850; 86870; 86900; 86901; 86902; 87086; 87186; 93005; 93010; 93306-TC; 99285-25; G0378; J1644

== ENCOUNTER 2018-05-03 21:30 | Inpatient (IN) | payer BC, OTHER ==
[2018-05-03] MEDS ORDERED: ACETAMINOPHEN INJECTION 100 ML IVPB ONE (21:51)
[2018-05-03] MEDS ORDERED: ACETAMINOPHEN 1000 MG/100 ML VIAL (NON FORMULARY) IVPB ONE (21:56)
[2018-05-03] MEDS ORDERED: ONDANSETRON 4 MG/2 ML VIAL IVPUSH ONE (21:56)
[2018-05-03] MEDS ORDERED: ONDANSETRON 4 MG/2 ML VIAL ONE (21:56)
--- NOTE | 2018-05-03 22:03 | PDOC ---
History of Present Illness - General Chief Complaint: Shortness of Breath Stated Complaint: DIFFICLUTY BREATHING DIZZY Time Seen by Provider: 05/03/18 21:56 History Source: Family Exam Limitations: Clinical Condition - History of Present Illness Initial Comments: 05/03/18 22:03 The patient is a 67F with a PMH of anemia, diabetes, hypertension, hyperlipidemia, DC, CAD, and asthma who presents to the ER with 2 days of worsening SOB with nausea and vomiting. The patient is with her family who provide the history. The family states that for 2 days, she's had worsening SOB , with nausea and vomiting. The SOB is associated with a nonproductive cough, no CP, diaphoresis. She has also been taking insulin for 2 days, per family. Pt cannot provide any history as she is agitated and in distress. Past History - Past Medical History Allergies/Adverse Reactions: Allergies Allergy/AdvReac Type Severity Reaction Status Date / Time Penicillins Allergy Difficulty Verified 03/21/18 11:56 Breathing Home Medications: Ambulatory Orders Mometasone Furoate [Asmanex 220Mcg -] 2 inh IH DAILY PRN 08/02/12 Atorvastatin Ca [Lipitor] 40 mg PO HS #30 tablet 01/02/15 Clopidogrel Bisulfate [Plavix -] 75 mg PO DAILY 06/19/17 Furosemide [Lasix -] 40 mg PO DAILY #30 tablet 06/24/17 Insulin (Levemir) [Levemir Vial] 25 units SQ HS #100 units MDD 1 09/12/17 Insulin (Levemir) [Levemir Vial] 45 units SQ AM #120 units MDD 1 09/12/17 Furosemide [Lasix] 40 mg PO DAILY #30 tablet 03/23/18 Losartan Potassium [Cozaar -] 100 mg PO DAILY #30 tablet 03/23/18 Asthma: Yes Cardiac Disorders: Yes (Yes,DC) COPD: No CHF: Yes Diabetes: Yes HTN: Yes Hypercholesterolemia: Yes - Surgical History Abdominal Surgery: Yes Cardiac Surgery: Yes (angiocath card stent x2) Orthopedic Surgery: Yes (knee surgery) - Immunization History Immunization Up to Date: Yes - Suicide/Smoking/Psychosocial Hx Smoking Status: No Smoking History: Unknown if ever smoked Have you smoked in the past 12 months: No Number of Cigarettes Smoked Daily: 0 Hx Alcohol Use: No Drug/Substance Use Hx: No Substance Use Type: None Hx Substance Use Treatment: No Review of Systems - Review of Systems Able to Perform ROS?: Yes Comments:: 05/03/18 22:08 GENERAL/CONSTITUTIONAL: No fever or chills. No weakness. HEAD, EYES, EARS, NOSE AND THROAT: No change in vision. No ear pain or discharge. No sore throat. CARDIOVASCULAR: No chest pain, palpitations, or lightheadedness. RESPIRATORY: Positive for nonproductive cough and SOB. No wheezing or hemoptysis. GASTROINTESTINAL: Positive for nausea and vomiting. No diarrhea, constipation, or abdominal pain. GENITOURINARY: No dysuria, frequency, hematuria, or change in urination. MUSCULOSKELETAL: No joint or muscle swelling or pain. No neck or back pain. SKIN: No rash or lesions. NEUROLOGIC: No headache, numbness, tingling, focal weakness, loss of consciousness, or change in strength/sensation. Is the patient limited [place] proficient: No *Physical Exam - Vital Signs Last Vital Signs Temp Pulse Resp BP Pulse Ox 101 F H 91 H 30 H 168/50 L 98 05/03/18 21:35 05/03/18 21:35 05/03/18 21:35 05/03/18 21:35 05/03/18 22:01 - Physical Exam Comments: 05/03/18 22:10 GENERAL: Well developed, well nourished. Awake and alert. In moderate distress. HEENT: Normocephalic, atraumatic. Hearing grossly normal. Moist mucous membranes. PERRLA, EOMI. No conjunctival pallor. Sclera are non-icteric. NECK: Supple. Full ROM. No JVD. CARDIOVASCULAR: Regular rate and rhythm. No murmurs, rubs, or gallops. PULMONARY: No evidence of respiratory distress. Decreased lung sounds bilaterally. ABDOMINAL: Soft. Non-tender. Non-distended. No rebound or guarding. MUSCULOSKELETAL: Normal range of motion at all joints. No bony deformities or tenderness. EXTREMITIES: No cyanosis. No clubbing. 1+ pitting edema in b/l LE. No calf tenderness or swelling. SKIN: Warm and dry. Normal capillary refill. No rashes. No jaundice. NEUROLOGICAL: Alert, awake, appropriate. Cranial nerves 2-12 grossly intact. Normal speech. Gait is normal without ataxia. PSYCHIATRIC: Cooperative. Good eye contact. Appropriate mood and affect. Moderate Sedation - Procedure Monitoring Vital Signs: Procedure Monitoring Vital Signs Temperature 101 F H 05/03/18 21:35 Pulse Rate 91 H 05/03/18 21:35 Respiratory Rate 30 H 05/03/18 21:35 Blood Pressure 168/50 L 05/03/18 21:35 O2 Sat by Pulse Oximetry (%) 98 05/03/18 22:01 ED Treatment Course - LABORATORY CBC & Chemistry Diagram: 05/03/18 22:00 05/03/18 22:00 - RADIOLOGY Radiology Studies Ordered: Category Date Time Status CHEST X-RAY PORTABLE* [RAD] Stat Radiology 05/03/18 21:56 Ordered - Medications Given in the ED: ED Medications Discontinued Medications Generic Name Dose Route Start Last Admin Trade Name Freq PRN Reason Stop Dose Admin Acetaminophen 1,000 mg 05/03/18 21:56 05/03/18 22:00 Ofirmev Injection - IVPB 05/03/18 21:57 1,000 mg ONCE ONE Administration Ondansetron HCl 4 mg 05/03/18 21:56 05/03/18 22:00 Zofran Injection IVPUSH 05/03/18 21:57 4 mg ONCE ONE Administration Medical Decision Making - Medical Decision Making 05/03/18 22:50 The patient is a 67F with MMP who presents with SOB, nausea, and vomiting, concerning for ACS, CHF exacerbation, DKA. Pt initially resuscitated with oxygen and IV tylenol and was found to have a fever. Bedside US shows mild b- lines but difficult to evaluate due to patient habitus. CBC shows hgb of 8.6, down from 10.1 in February 2018. CXR preliminary read is negative for acute pathology including CHF exacerbation. Pending CMP, trop, and UA. 05/03/18 23:03 Influenza negative. 05/03/18 23:34 Lactate of 2.9. Will hydrate pt. 05/04/18 01:22 Microblogged for admission. 05/04/18 02:02 Pt endorsed to [facility] D[facility] Marmolejo for admission under Dr. Payne. *DC/Admit/Observation/Transfer Diagnosis at time of Disposition: Acute exacerbation of CHF (congestive heart failure) Qualifiers: Heart failure type: unspecified Qualified Code(s): I50.9 - Heart failure, unspecified - Discharge Dispostion Condition at time of disposition: Guarded Decision to Admit order: Yes - Referrals - Patient Instructions - Post Discharge Activity
--- NOTE | 2018-05-03 22:10 | PDOC ---
Attending Attestation - HPI HPI: 05/03/18 22:17 The patient is a 67 year old female with a PMH of anemia, diabetes, HTN, HLD, [place] , CAD, and asthma who presents to the ER brought in by family for a 2 day history of shortness of breath with a nonproductive cough, nausea and vomiting. Patient recently ran out of insulin and took insulin these past two days. Patient is unable to provide further history. Allergies: NKDA PCP: Dr. Philip - Physicial Exam PE: 05/03/18 22:22 ADULT PHYSICAL EXAM Constitutional: Awake, alert, oriented. (+) Obese. (+) Hot to touch. Neck: Supple. Full ROM. No lymphadenopathy. Cardiovascular: Regular rate. Regular rhythm. S1, S2 regular. Distal pulses are 2+ and symmetric. Pulmonary/Chest: (+) Diminished breath sounds. No wheezing, rales or rhonchi. Abdominal: Soft and non-distended. There is no tenderness. No rebound, guarding or rigidity. No organomegaly. No palpable masses. Good bowel sounds. Musculoskeletal: No edema. No cyanosis. No clubbing. Full range of motion in all extremities. Nocalf tenderness. Radial/pedal pulses are intact and 2+ bilaterally Skin: Skin is warm and dry. No petechiae. No purpura. Neurological: Alert and oriented to person, place, and time. Cranial nerves II -XII are grossly intact. Psychiatric: Good eye contact. Normal interaction, affect and behavior. <Windy Tiwari - Last Filed: 05/03/18 22:18> - Resident Resident Name: Temo Kelley - ED Attending Attestation I have performed the following: I have examined & evaluated the patient, The case was reviewed & discussed with the resident, I agree w/resident's findings & plan, Exceptions are as noted - Medical Decision Making 05/03/18 22:09 I, Dr. Lillie Melo, DO, attest that this document has been prepared under my direction and personally reviewed by me in its entirety. I further attest, that it accurately reflects all work, treatment, procedures and medical decision -making performed by me. 05/03/18 22:11 a/p: 67y female with hx of cad, chf presents with increasing sob and cough/n/v x 2 days -pt arrivals in extremis, sob, uncomfortable, tachypnic -dry heaving -Dr. Philip is PMD -[facility] where stent [facility] -will send labs, cultures, cxr, ekg, flu -will need obs vs admission 05/04/18 00:06 hgb 8.6 down from 10 discussed rectal exam with the patient who refuses at this time -c/o dysuria - refused straight cath, has tried to use commode without success in giving a urine sample 05/04/18 02:01 chf on labs and cxr congested broad spectrum abx ordered pt refusing bipap 05/04/18 02:01 flu negative resident discussed the case with Francie Espinoza APN who accepts pt to service <Lillie Melo - Last Filed: 05/04/18 02:02> Heart Score/ECG Review - ECG Intrepretation Comment:: 05/03/18 22:09 sinus at 89, l axis deviation, lvh, nl interval, t wave inversions I/avl <Lillie Melo - Last Filed: 05/04/18 02:02>
[2018-05-03 22:23] LABS: BASO % 0.2 % (0-2.0); HEMATOCRIT 25.5 % (32.4-45.2); HEMOGLOBIN 8.6 GM/dL (10.7-15.3); LYMPH % 4.7 % (8-40); MCH 29.2 pg (25.7-33.7); MCHC 33.9 g/dl (32.0-36.0); MEAN CELL VOLUME 86.3 fl (80-96); MEAN PLT VOLUME 11.6 fl (7.5-11.1); MONO % 7.3 % (3.8-10.2); NEUT % 87.8 % (42.8-82.8); PLATELET COUNT 170 K/MM3 (134-434); RBC 2.95 M/mm3 (3.60-5.2); RDW 14.8 % (11.6-15.6); WHITE BLOOD COUNT 10.7 K/mm3 (4.0-10.0)
[2018-05-03 22:55] LABS: INR 1.23 (0.83-1.09); PROTHROMBIN TIME (PATIENT) 14.6 SEC (9.7-13.0)
[2018-05-03 22:58] LABS: ACTIVATED PTT 18.5 SECONDS (25.2-36.5)
[2018-05-03] MEDS ORDERED: LACTATED RINGERS SOLUTION 1000 ML INFUS.BAG IV ONE (23:35)
[2018-05-03] MEDS ORDERED: VANCOMYCIN 1,000 MG in DEXTROSE 5%-WATER - 250 ML IVPB ONE (23:39)
[2018-05-03] MEDS ORDERED: AZTREONAM 1 GM in DEXTROSE 5%-WATER - 50 ML IVPB ONE (23:42)
[2018-05-03] MEDS ORDERED: VANCOMYCIN 1 GRAM (PRE-DOCKED) 1,000 MG/250 ML BAG IVPB ONE (23:53)
[2018-05-03 23:59] LABS: N-TERMINAL BNP 3437.8 pg/ml (5-125)
[2018-05-04] MEDS ORDERED: ASPIRIN 81 MG CHEWABLE TABLETS PO ONE (00:05)
[2018-05-04] MEDS ORDERED: FUROSEMIDE 40 MG/4 ML INJECTABLE VIAL IVPUSH ONE (00:12)
[2018-05-04 00:49] LABS: ALBUMIN 2.8 g/dl (3.4-5.0); ALK PHOS 75 U/L (45-117); ANION GAP 11 MMOL/L (8-16); BILIRUBIN,TOTAL 0.4 mg/dL (0.2-1); BLOOD UREA NITROGEN 44 mg/dL (7-18); CALCIUM 8.4 mg/dL (8.5-10.1); CHLORIDE 92 mmol/L (98-107); CO2 24 mmol/L (21-32); CREATININE 1.6 mg/dL (0.55-1.3); POTASSIUM 4.5 mmol/L (3.5-5.1); SGPT/ALT 17 U/L (13-61); SODIUM 127 mmol/L (136-145); TOT PROT 6.3 g/dl (6.4-8.2)
[2018-05-04 01:00] LABS: GLUCOSE,RANDOM 418 mg/dL (74-106)
[2018-05-04 01:06] LABS: SGOT/AST 10 U/L (15-37)
[2018-05-04] MEDS ORDERED: FUROSEMIDE 40 MG/4 ML INJECTABLE VIAL ONE (01:19)
[2018-05-04] MEDS ORDERED: ASPIRIN 81 MG CHEWABLE TABLETS ONE (01:19)
[2018-05-04] MEDS ORDERED: INSULIN REGULAR HUMAN 100 UNITS/ML *VIAL SQ ONE (01:30)
[2018-05-04] MEDS ORDERED: INSULIN (NOVOLOG) ASPART 100 UNITS/ML 10ML VIAL ONE ×2 (01:32→01:33)
[2018-05-04 02:00] LABS: URINE APPEARANCE TURBID; URINE BILIRUBIN NEGATIVE (<2.0 mg/dL); URINE COLOR YELLOW; URINE GLUCOSE (UA) 3+ (NEGATIVE); URINE KETONE NEGATIVE (NEGATIVE); URINE LEUK ESTERASE 2+ (NEGATIVE); URINE NITRITE NEGATIVE (NEGATIVE); URINE PROTEIN 2+ (NEGATIVE); URINE UROBILINOGEN NEGATIVE mg/dL (0.2-1.0)
[2018-05-04 02:21] LABS: EPI CELLS MANY /HPF (FEW); URINE BACTERIA FEW /hpf (NONE SEEN); URINE MUCUS FEW
--- NOTE | 2018-05-04 03:20 | HP ---
Admitting History and Physical - Primary Care Physician PCP: Russell Philip - Admission Chief Complaint: SOB, Cough, Nausea, Vomiting History of Present Illness: This is a 67 y/o woman with a PMHx of HTN, HLD, CAD, AZ, DM, Anemia, Asthma. Who presents to the ED with family for a 2 day history of shortness of breath with a nonproductive cough, nausea and vomiting. Patient recently ran out of insulin and took insulin these past two days. Patient denies fever, chills, dizziness, CP, palpitations, AP, diarrhea, constipation, dysuria History Source: Patient Limitations to Obtaining History: No Limitations - Past Medical History Cardiovascular: Yes: CAD (S/P STENTING), HTN, Hyperlipdemia. No: AFIB Pulmonary: Yes: Asthma, Sleep Apnea Gastrointestinal: Yes: GERD. No: Ascites Heme/Onc: Yes: Anemia Musculoskeletal: Yes: Osteoarthritis Endocrine: Yes: Diabetes Mellitus - Smoking History Smoking history: Unknown if ever smoked Have you smoked in the past 12 months: No Aproximately how many cigarettes per day: 0 - Alcohol/Substance Use Hx Alcohol Use: No History of Substance Use: reports: None - Social History ADL: Family Assistance History of Recent Travel: No Home Medications - Allergies Allergies/Adverse Reactions: Allergies Allergy/AdvReac Type Severity Reaction Status Date / Time Penicillins Allergy Difficulty Verified 03/21/18 11:56 Breathing - Home Medications Home Medications: Ambulatory Orders Mometasone Furoate [Asmanex 220Mcg -] 2 inh IH DAILY PRN 08/02/12 Atorvastatin Ca [Lipitor] 40 mg PO HS #30 tablet 01/02/15 Clopidogrel Bisulfate [Plavix -] 75 mg PO DAILY 06/19/17 Furosemide [Lasix -] 40 mg PO DAILY #30 tablet 06/24/17 Insulin (Levemir) [Levemir Vial] 25 units SQ HS #100 units MDD 1 09/12/17 Insulin (Levemir) [Levemir Vial] 45 units SQ AM #120 units MDD 1 09/12/17 Furosemide [Lasix] 40 mg PO DAILY #30 tablet 03/23/18 Losartan Potassium [Cozaar -] 100 mg PO DAILY #30 tablet 03/23/18 Family Disease History - Family Disease History Family Disease History: Diabetes: Mother, Sister Review of Systems - Review of Systems Constitutional: reports: No Symptoms Eyes: reports: No Symptoms HENT: reports: No Symptoms Neck: reports: No Symptoms Cardiovascular: reports: Shortness of Breath Respiratory: reports: Cough, SOB, SOB on Exertion Gastrointestinal: reports: Nausea, Vomiting Genitourinary: reports: No Symptoms Breasts: reports: No Symptoms Reported Musculoskeletal: reports: No Symptoms Integumentary: reports: No Symptoms Neurological: reports: No Symptoms Endocrine: reports: No Symptoms Hematology/Lymphatic: reports: No Symptoms Psychiatric: reports: No Symptoms Physical Examination Vital Signs: Vital Signs Temperature 101 F H 05/03/18 21:35 Pulse Rate 69 05/04/18 01:56 Respiratory Rate 20 05/04/18 01:56 Blood Pressure 109/48 L 05/04/18 01:56 O2 Sat by Pulse Oximetry (%) 98 05/04/18 01:56 Constitutional: Yes: Well Nourished, No Distress, Calm, Obese Eyes: Yes: Conjunctiva Clear, EOM Intact, PERRL HENT: Yes: WNL, Atraumatic, Normocephalic Neck: Yes: WNL, Supple, Trachea Midline Cardiovascular: Yes: Regular Rate and Rhythm, S1, S2 Respiratory: Yes: Cough, Diminished, On Nasal O2, Rhonchi, SOB, SOB on Exertion Gastrointestinal: Yes: Normal Bowel Sounds, Soft, Abdomen, Obese Renal/: Yes: WNL Breast(s): Yes: WNL Musculoskeletal: Yes: WNL Extremities: Yes: WNL Edema: No Peripheral Pulses WNL: Yes Neurological: Yes: WNL, Alert, Oriented, Cran Nerves II-XII Intact ...Motor Strength: WNL Psychiatric: Yes: WNL, Alert, Oriented Labs: CBC, BMP 05/03/18 22:00 05/03/18 22:00 Laboratory Results - last 24 hr 05/03/18 05/03/18 05/03/18 22:00 22:00 22:00 WBC 10.7 H RBC 2.95 L Hgb 8.6 L Hct 25.5 L D MCV 86.3 MCH 29.2 MCHC 33.9 RDW 14.8 Plt Count 170 D MPV 11.6 H Absolute Neuts (auto) 9.4 H Neutrophils % 87.8 H D Lymphocytes % 4.7 L D Monocytes % 7.3 Eosinophils % 0.0 D Basophils % 0.2 Nucleated RBC % 0 PT with INR 14.60 H INR 1.23 H PTT (Actin FS) 18.5 L Sodium 127 L Potassium 4.5 Chloride 92 L Carbon Dioxide 24 Anion Gap 11 BUN 44 H Creatinine 1.6 H Creat Clearance w eGFR 32.05 Random Glucose 418 H* Lactic Acid Calcium 8.4 L Phosphorus Magnesium Total Bilirubin 0.4 AST 10 L ALT 17 Alkaline Phosphatase 75 Troponin I B-Natriuretic Peptide Total Protein 6.3 L Albumin 2.8 L Urine Color Urine Appearance Urine pH Ur Specific [place] Urine Protein Urine Glucose (UA) Urine Ketones Urine Blood Urine Nitrite Urine Bilirubin Urine Urobilinogen Ur Leukocyte Esterase Urine WBC (Auto) Urine RBC (Auto) Ur Epithelial Cells Urine Bacteria Urine Mucus Influenza A (Rapid) Influenza B (Rapid) Blood Type Antibody Screen 05/03/18 05/03/18 05/03/18 22:00 22:00 22:00 WBC RBC Hgb Hct MCV MCH MCHC RDW Plt Count MPV Absolute Neuts (auto) Neutrophils % Lymphocytes % Monocytes % Eosinophils % Basophils % Nucleated RBC % PT with INR INR PTT (Actin FS) Sodium Potassium Chloride Carbon Dioxide Anion Gap BUN Creatinine Creat Clearance w eGFR Random Glucose Lactic Acid 2.9 H* Calcium Phosphorus Magnesium Total Bilirubin AST ALT Alkaline Phosphatase Troponin I 0.13 H B-Natriuretic Peptide 3437.8 H Total Protein Albumin Urine Color Urine Appearance Urine pH Ur Specific [place] Urine Protein Urine Glucose (UA) Urine Ketones Urine Blood Urine Nitrite Urine Bilirubin Urine Urobilinogen Ur Leukocyte Esterase Urine WBC (Auto) Urine RBC (Auto) Ur Epithelial Cells Urine Bacteria Urine Mucus Influenza A (Rapid) Negative Influenza B (Rapid) Negative Blood Type Antibody Screen 05/03/18 05/04/18 23:15 00:50 WBC RBC Hgb Hct MCV MCH MCHC RDW Plt Count MPV Absolute Neuts (auto) Neutrophils % Lymphocytes % Monocytes % Eosinophils % Basophils % Nucleated RBC % PT with INR INR PTT (Actin FS) Sodium Potassium Chloride Carbon Dioxide Anion Gap BUN Creatinine Creat Clearance w eGFR Random Glucose Lactic Acid Calcium Phosphorus Magnesium Total Bilirubin AST ALT Alkaline Phosphatase Troponin I B-Natriuretic Peptide Total Protein Albumin Urine Color Yellow Urine Appearance Turbid Urine pH 5.0 Ur Specific [place] 1.014 Urine Protein 2+ H Urine Glucose (UA) 3+ H Urine Ketones Negative Urine Blood 1+ H Urine Nitrite Negative Urine Bilirubin Negative Urine Urobilinogen Negative Ur Leukocyte Esterase 2+ H Urine WBC (Auto) 1732 Urine RBC (Auto) 46 Ur Epithelial Cells Many Urine Bacteria Few Urine Mucus Few Influenza A (Rapid) Influenza B (Rapid) Blood Type O POSITIVE Antibody Screen Positive Intake & Output 05/01/18 05/02/18 05/03/18 05/04/18 23:59 23:59 23:59 23:59 Weight 110 kg Current Medications Generic Name Dose Route Start Last Admin Trade Name Freq PRN Reason Stop Dose Admin Atorvastatin Calcium 40 mg 05/04/18 22:00 Lipitor - PO HS ALEE Clopidogrel Bisulfate 75 mg 05/04/18 10:00 Plavix - PO DAILY ALEE Furosemide 40 mg 05/04/18 10:00 Lasix Injection - IVPUSH DAILY ALEE Aztreonam 1 gm/ Dextrose 50 mls @ 100 mls/hr 05/04/18 10:00 IVPB Q8H-IV ALEE Protocol Insulin Aspart 0 vial 05/04/18 07:00 Novolog Vial Sliding Scale - SQ ACHS ALEE Protocol Insulin Detemir 25 units 05/04/18 22:00 Levemir Vial SQ HS ALEE Insulin Detemir 45 units 05/05/18 07:00 Levemir Vial SQ AM ALEE Losartan Potassium 100 mg 05/04/18 10:00 Cozaar - PO DAILY ALEE Mometasone Furoate 2 puff 05/04/18 07:47 Asmanex 220mcg - IH DAILY PRN ASTHMA Imaging - Results Chest X-ray: Image Reviewed EKG: Image Reviewed Problem List - Problems (1) Acute exacerbation of CHF (congestive heart failure) Assessment/Plan: Continue cardiac monitoring Lasix given in ED, will continue Appreciate Cardiology consult Daily weights Strict INOs EKG-reviewed Chest Xray image- reviewed Code(s): I50.9 - HEART FAILURE, UNSPECIFIED Qualifiers: Heart failure type: unspecified Qualified Code(s): I50.9 - Heart failure, unspecified (2) Shortness of breath Assessment/Plan: See above Code(s): R06.02 - SHORTNESS OF BREATH (3) Cough Assessment/Plan: See above Code(s): R05 - COUGH (4) Asthma Assessment/Plan: Duonebs prn SOB Continue home meds Peak flow O2 Monitor vitals Code(s): J45.909 - UNSPECIFIED ASTHMA, UNCOMPLICATED (5) UTI (urinary tract infection) Assessment/Plan: UA- +2 leukocyte esterase,+1 blood, 1732 WBCs Urine Culture-pending E Coli, Staphylococcus hx Started on Vancomycin and Aztreonam in ED, will continue Appreciate ID consult- complicated UTI Monitor CBC Monitor vitals Code(s): N39.0 - URINARY TRACT INFECTION, SITE NOT SPECIFIED (6) Elevated troponin Assessment/Plan: Likely demand ischemia Serial enzymes Appreciate Cardiology consult EKG- SR 89bpm, left axis deviation, LVH, TWI in 1/avl On exam- patient denies chest pain and palpitations at present Code(s): R74.8 - ABNORMAL LEVELS OF OTHER SERUM ENZYMES (7) HORACE (acute kidney injury) Code(s): N17.9 - ACUTE KIDNEY FAILURE, UNSPECIFIED (8) Diabetes mellitus, insulin dependent (IDDM), uncontrolled Assessment/Plan: Likely secondary to not taking meds (ran out of insulin), poor compliance BGMs ISS Continue Levemir HgbA1c 02/2018- 11.4 RD eval Appreciate Endocrinology consult Code(s): E10.65 - TYPE 1 DIABETES MELLITUS WITH HYPERGLYCEMIA (9) Anemia Assessment/Plan: Hgb 8.6, slightly below baseline Will transfuse if HGB < 7.0 Patient refused Stool Occult Monitor CBC Monitor vitals O2 Code(s): D64.9 - ANEMIA, UNSPECIFIED Qualifiers: (10) CAD (coronary artery disease) Assessment/Plan: Continue home meds EKG reviewed Code(s): I25.10 - ATHSCL HEART DISEASE OF [place] CORONARY ARTERY W/O ANG PCTRS (11) HLD (hyperlipidemia) Assessment/Plan: Continue Lipitor Monitor LFTs Code(s): E78.5 - HYPERLIPIDEMIA, UNSPECIFIED Assessment/Plan This is a 67 y/o woman with a PMHx of HTN, HLD, CAD, AZ, Anemia, DM, Asthma. Admitted to Telemetry for Acute on Chronic CHF Exacerbation, Sepsis, UTI, Uncontrolled DM, elevated Troponin for further evaluation of their emergent condition. Plan: See Problem List FEN Fluid Restriction 1L Replete lytes prn Low Na, Diabetic Diet DVT ppx OOB SCDs TEDs Hold AC secondary to Anemia Dispo: Requires Inpatient Care Visit type - Emergency Visit Emergency Visit: Yes ED Registration Date: 05/03/18 Care time: The patient presented to the Emergency Department on the above date and was hospitalized for further evaluation of their emergent condition. - New Patient This patient is new to me today: Yes Date on this admission: 05/04/18 - Critical Care Critical Care patient: No
[2018-05-04 06:57] LABS: BASO % 0.3 % (0-2.0); HEMATOCRIT 25.1 % (32.4-45.2); HEMOGLOBIN 8.4 GM/dL (10.7-15.3); LYMPH % 7.1 % (8-40); MCH 29.1 pg (25.7-33.7); MCHC 33.5 g/dl (32.0-36.0); MEAN PLT VOLUME 11.5 fl (7.5-11.1); MONO % 6.4 % (3.8-10.2); NEUT % 86.2 % (42.8-82.8); PLATELET COUNT 168 K/MM3 (134-434); RBC 2.88 M/mm3 (3.60-5.2); RDW 14.8 % (11.6-15.6); WHITE BLOOD COUNT 11.3 K/mm3 (4.0-10.0)
[2018-05-04] MEDS ORDERED: INSULIN SLIDING SCALE (NOVOLOG) 1 VIAL SQ SCH (07:00)
[2018-05-04 07:39] LABS: ANION GAP 9 MMOL/L (8-16); BLOOD UREA NITROGEN 48 mg/dL (7-18); CALCIUM 7.9 mg/dL (8.5-10.1); CHLORIDE 93 mmol/L (98-107); CO2 26 mmol/L (21-32); CREATININE 1.8 mg/dL (0.55-1.3); MAGNESIUM 2.3 mg/dL (1.8-2.4); PHOSPHOROUS 4.9 mg/dL (2.5-4.9); POTASSIUM 4.5 mmol/L (3.5-5.1); SODIUM 127 mmol/L (136-145)
[2018-05-04 07:51] LABS: GLUCOSE,RANDOM 433 mg/dL (74-106)
[2018-05-04] MEDS ORDERED: INSULIN REGULAR HUMAN 100 UNITS/ML *VIAL ONE ×2 (08:39→12:36)
[2018-05-04] MEDS ORDERED: AZTREONAM 1 GM in DEXTROSE 5%-WATER - 50 ML IVPB SCH ×2 (10:00→10:45)
--- NOTE | 2018-05-04 10:48 | PN ---
Progress Note (short form) - Note Progress Note: ID consult dictated imp/reccd 67 yo female with DM, cad, obesity- very poor historian- admitted with one week of not feeling well fevers, dysuria +vomiting no cough or sob noted to have fever 101 in ED with pyuria and elevated lactic acid elevated glucose and worsening renal function sepsis/fever probable UTI severe penicillin allergy vanco/azactam IVF renal/bladder sonogram horace Problem List - Problems (1) Sepsis Code(s): A41.9 - SEPSIS, UNSPECIFIED ORGANISM (2) UTI (urinary tract infection) Code(s): N39.0 - URINARY TRACT INFECTION, SITE NOT SPECIFIED (3) HORACE (acute kidney injury) Code(s): N17.9 - ACUTE KIDNEY FAILURE, UNSPECIFIED (4) Penicillin allergy Code(s): Z88.0 - ALLERGY STATUS TO PENICILLIN
--- NOTE | 2018-05-04 12:13 | CONS ---
DATE OF CONSULTATION: 05/04/2018 HISTORY OF PRESENT ILLNESS: This is a 67-year-old woman with a history of diabetes, coronary artery disease, and obesity. She presented to the emergency room last night with a multitude of complaints including nausea and vomiting as well as fevers. She reports she is not having any cough. She reports her symptoms have been for about a week. This is very different than the H&P that was dictated. She reports she has been vomiting at home. She has no chest pain. She has no abdominal pain. She notes that she has dysuria. She has a very severe allergy to PENICILLIN. MEDICATIONS: Her medications as an outpatient include Asmanex, Lipitor, Plavix, Lasix, insulin, and Cozaar. PAST MEDICAL HISTORY: Notable for asthma, coronary artery disease, CHF, diabetes, hypertension, hypercholesterolemia. PAST SURGICAL HISTORY: Notable for stent, and she has had knee surgery. ALLERGIES: She is allergic to PENICILLIN, which apparently causes difficulty breathing. FAMILY HISTORY: Unremarkable. SOCIAL HISTORY: She is . She lives with her . There is no history of any cigarette use. She is from [place]. There is no recent travel. They have no pets. REVIEW OF SYSTEMS: As per HPI. PHYSICAL EXAMINATION: General: She is awake and alert. Vital Signs: Temperature is 98.5. She is requesting water. Blood pressure is 135/58. T-max was 101 on admission. Respiratory rate 16. She is saturating 100% on 3 L. HEENT: She is normocephalic. Her eyes are anicteric. Neck: Supple. Lungs: Clear to auscultation. Heart: Regular rate and rhythm. Abdomen: She has no CVA tenderness. Abdomen is soft. She has some suprapubic discomfort. Extremities: Without edema. LABORATORY: Labs are notable for white count 11.3, hemoglobin 8.4. Platelets are 168. BUN and creatinine are 48 and 1.8, which is new, with a glucose of 433. Hemoglobin A1c in February was 11.4. Sodium is 127. Lactic acid was its highest 2.9 and is now 2.1. Liver function tests are normal. Her urine and blood cultures have been sent. Chest x-ray is negative for infiltrate. An influenza screen is negative. SUMMARY: This is a 67-year-old woman noted to have fever with lactic acidosis, pyuria, elevated glucose, and worsening renal function. Concerns would be sepsis. Given the fever, probable UTI, severe penicillin allergy, would treat her with vancomycin and Azactam adjusted for her renal insufficiency, IV fluids. Would obtain a renal and bladder sonogram as well to evaluate for obstruction given her HORACE. Further recommendations to follow. NASIR NOLAN M.D. [id number]
[2018-05-04] MEDS ORDERED: CLOPIDOGREL BISULFATE 75 MG TABLET (FP) ONE (12:16)
[2018-05-04] MEDS: FUROSEMIDE 40 MG/4 ML INJECTABLE VIAL IVPUSH SCH (12:39)
[2018-05-04] MEDS: CLOPIDOGREL BISULFATE 75 MG TABLET (FP) PO SCH (12:39)
[2018-05-04] MEDS: LOSARTAN POTASSIUM 50 MG TABLET (FP) PO SCH (12:39)
[2018-05-04] MEDS: INSULIN SLIDING SCALE (NOVOLOG) 1 VIAL SQ SCH ×3 (12:39→22:08)
[2018-05-04] MEDS: MOMETASONE FUROATE 220 MCG/IH INHALER IH SCH (12:39)
[2018-05-04] MEDS: AZTREONAM 2 GM in DEXTROSE 5%-WATER 100 ML IVPB SCH ×2 (12:40→23:55)
--- NOTE | 2018-05-04 13:13 | CON.CARD ---
Consult Consult Specialty:: ideology Referred by:: Elmer Reason for Consultation:: Shortness of breath - History of Present Illness Chief Complaint: Fever, dysuria, shortness of breath History of Present Illness: The patient is a 67-year-old morbidly obese female, we've a history of diabetes , hypertension, hyperlipidemia, asthma, coronary artery disease and myocardial infarction, status post stenting of the mid LAD on 05/02/2017, now admitted with fever, dysuria, cough. The patient denies chest pains. She is in no apparent distress. - Past Medical History Cardio/Vascular: Yes: CAD (S/P STENTING), HTN, Hyperlipdemia. No: AFIB Pulmonary: Yes: Asthma, Sleep Apnea Gastrointestinal: Yes: GERD. No: Ascites Musculoskeletal: Yes: Osteoarthritis Endocrine: Yes: Diabetes Mellitus - Alcohol/Substance Use Hx Alcohol Use: No History of Substance Use: reports: None - Smoking History Smoking history: Unknown if ever smoked Have you smoked in the past 12 months: No Aproximately how many cigarettes per day: 0 - Social History ADL: Family Assistance History of Recent Travel: No Home Medications - Allergies Allergies/Adverse Reactions: Allergies Allergy/AdvReac Type Severity Reaction Status Date / Time Penicillins Allergy Difficulty Verified 03/21/18 11:56 Breathing - Home Medications Home Medications: Ambulatory Orders Mometasone Furoate [Asmanex 220Mcg -] 2 inh IH DAILY PRN 08/02/12 Atorvastatin Ca [Lipitor] 40 mg PO HS #30 tablet 01/02/15 Clopidogrel Bisulfate [Plavix -] 75 mg PO DAILY 06/19/17 Furosemide [Lasix -] 40 mg PO DAILY #30 tablet 06/24/17 Insulin (Levemir) [Levemir Vial] 25 units SQ HS #100 units MDD 1 09/12/17 Insulin (Levemir) [Levemir Vial] 45 units SQ AM #120 units MDD 1 09/12/17 Furosemide [Lasix] 40 mg PO DAILY #30 tablet 03/23/18 Losartan Potassium [Cozaar -] 100 mg PO DAILY #30 tablet 03/23/18 Family Disease History - Family Disease History Family Disease History: Diabetes: Mother, Sister Review of Systems - Review of Systems Constitutional: reports: Fever, Lethargy, Weakness Eyes: reports: No Symptoms HENT: reports: No Symptoms Neck: reports: No Symptoms Cardiovascular: reports: Shortness of Breath Respiratory: reports: SOB on Exertion Gastrointestinal: reports: Nausea, Vomiting Genitourinary: reports: Dysuria, Frequency Breasts: reports: No Symptoms Reported Musculoskeletal: reports: No Symptoms Integumentary: reports: No Symptoms Neurological: reports: No Symptoms Endocrine: reports: No Symptoms Hematology/Lymphatic: reports: No Symptoms Psychiatric: reports: No Symptoms Vital Signs: Vital Signs Temperature 98.5 F 05/04/18 08:15 Pulse Rate 85 05/04/18 12:34 Respiratory Rate 16 05/04/18 12:34 Blood Pressure 118/76 05/04/18 12:34 O2 Sat by Pulse Oximetry (%) 100 05/04/18 12:34 Constitutional: Yes: Calm, Obese Eyes: Yes: WNL, Conjunctiva Clear, EOM Intact HENT: Yes: WNL, Atraumatic, Normocephalic Neck: Yes: WNL, Supple, Trachea Midline Respiratory: Yes: WNL, Regular, CTA Bilaterally Gastrointestinal: Yes: WNL, Normal Bowel Sounds, Soft Renal/: Yes: WNL Cardiovascular: Yes: WNL, Regular Rate and Rhythm JVD: No Carotid Bruit: No PMI: Non-Displaced Heart Sounds: Yes: S1, S2 Murmur: Yes: Systolic Murmur, Grade 2 Musculoskeletal: Yes: WNL Edema: Yes Edema: LLE: 1+, RLE: 1+ Peripheral Pulses: 1+ Left Carotid, 1+ Right Carotid, 1+ Left Femoral, 1+ Right Femoral, 1+ Left Popliteal, 1+ Right Popliteal, 1+ Left Doralis Pedis, 1+ Right Dorsalis Pedis Integumentary: Yes: WNL Neurological: Yes: WNL, Alert, Oriented - Other Data Labs, Other Data: CBC, BMP 05/04/18 05:30 05/04/18 05:30 INR, PTT INR 1.23 (0.83-1.09) H 05/03/18 22:00 Troponin, BNP 05/03/18 22:00 Troponin I 0.13 H B-Natriuretic Peptide 3437.8 H Troponin, BNP 05/03/18 22:00 Troponin I 0.13 H B-Natriuretic Peptide 3437.8 H Assessment/Plan The patient is a 67-year-old morbidly obese female, we've a history of diabetes , hypertension, hyperlipidemia, asthma, coronary artery disease and myocardial infarction, status post stenting of the mid LAD on 05/02/2017, now admitted with fever, dysuria, cough. The patient denies chest pains. She is in no apparent distress. The patient reports no chest pains. Troponins and creatinine are elevated. Mild acute on chronic diastolic heart failure. Continue Plavix. Continue intravenous Lasix, 40 mg twice daily Watch for hyponatremia. Watch renal function. Continue antibiotics for UTI. Watch hemoglobin and transfuse accordingly. No need for further cardiac workup nor testing at this point. Would monitor on telemetry. We'll follow with you.
--- NOTE | 2018-05-04 13:17 | EKG ---
Test Reason : Blood Pressure : / mmHG Vent. Rate : 089 BPM Atrial Rate : 089 BPM P-R Int : 148 ms QRS Dur : 112 ms QT Int : 372 ms P-R-T Axes : 056 -39 107 degrees QTc Int : 452 ms NORMAL SINUS RHYTHM WITH SINUS ARRHYTHMIA LEFT AXIS DEVIATION LEFT VENTRICULAR HYPERTROPHY WITH REPOLARIZATION ABNORMALITY ABNORMAL ECG WHEN COMPARED WITH ECG OF 21-MAR-2018 13:19, NO SIGNIFICANT CHANGE WAS FOUND Confirmed by NEELAM AU MD ([id number]) on 05/04/2018 1:16:39 PM Referred By: Confirmed By:NEELAM AU MD
--- NOTE | 2018-05-04 14:27 | PN ---
Progress Note, Physician Chief Complaint: patient seen and examined in ER admitted with fever and dysuria - Current Medication List Current Medications: Active Medications Atorvastatin Calcium (Lipitor -) 40 mg PO HS [facility] Clopidogrel Bisulfate (Plavix -) 75 mg PO DAILY [facility] Last Admin: 05/04/18 12:39 Dose: 75 mg Furosemide (Lasix Injection -) 40 mg IVPUSH DAILY [facility] Last Admin: 05/04/18 12:39 Dose: 40 mg Vancomycin HCl 1,250 mg/ (Dextrose) 250 mls @ 250 mls/2 hr IVPB ONCE ONE; Protocol Stop: 05/04/18 16:59 Aztreonam 2 gm/ Dextrose 100 mls @ 100 mls/hr IVPB Q12H [facility]; Protocol Last Admin: 05/04/18 12:40 Dose: 100 mls/hr Insulin Aspart (Novolog Vial Sliding Scale -) 1 vial SQ ACHS [facility]; Protocol Last Admin: 05/04/18 12:39 Dose: 8 units Insulin Detemir (Levemir Vial) 25 units SQ HS [facility] Insulin Detemir (Levemir Vial) 45 units SQ AM [facility] Losartan Potassium (Cozaar -) 100 mg PO DAILY [facility] Last Admin: 05/04/18 12:39 Dose: 100 mg Mometasone Furoate (Asmanex 220mcg -) 2 puff IH DAILY [facility] Last Admin: 05/04/18 12:39 Dose: Not Given - Objective Vital Signs: Vital Signs Temperature 98.5 F 05/04/18 08:15 Pulse Rate 85 05/04/18 12:34 Respiratory Rate 16 05/04/18 12:34 Blood Pressure 118/76 05/04/18 12:34 O2 Sat by Pulse Oximetry (%) 100 05/04/18 12:34 Constitutional: Yes: Calm Cardiovascular: Yes: Regular Rate and Rhythm, S1, S2 Respiratory: Yes: CTA Bilaterally Gastrointestinal: Yes: Normal Bowel Sounds, Soft Edema: No Neurological: Yes: Alert, Oriented Labs: CBC, BMP 05/04/18 05:30 05/04/18 05:30 INR, PTT INR 1.23 (0.83-1.09) H 05/03/18 22:00 Problem List - Problems (1) Acute exacerbation of CHF (congestive heart failure) Assessment/Plan: telemetry lasix iv daily monitor sodium and renal function trend bnp cozaar Code(s): I50.9 - HEART FAILURE, UNSPECIFIED Qualifiers: Heart failure type: unspecified Qualified Code(s): I50.9 - Heart failure, unspecified (2) UTI (urinary tract infection) Assessment/Plan: aztrenoma Code(s): N39.0 - URINARY TRACT INFECTION, SITE NOT SPECIFIED (3) Sepsis Assessment/Plan: cultures pending repeat lactic acid wbc 11.3 broad spectrum antibiotics Code(s): A41.9 - SEPSIS, UNSPECIFIED ORGANISM (4) Anemia Assessment/Plan: iron panel Code(s): D64.9 - ANEMIA, UNSPECIFIED Qualifiers: (5) Diabetes mellitus with hyperglycemia Assessment/Plan: bgm sliding scale hgba1c levemir endocrine eval Code(s): E11.65 - TYPE 2 DIABETES MELLITUS WITH HYPERGLYCEMIA
[2018-05-04] MEDS ORDERED: VANCOMYCIN 1,250 MG in DEXTROSE 5%-WATER - 250 ML IVPB ONE (15:00)
[2018-05-04 15:36] LABS: N-TERMINAL BNP 4088.4 pg/ml (5-125)
[2018-05-04] MEDS ORDERED: INSULIN (LEVEMIR) 100 UNITS/ML UNITS SQ SCH (22:00)
[2018-05-04] MEDS: HEPARIN NA (PORCINE) 5,000 UNITS/ML 1ML VIAL SQ SCH (22:07)
[2018-05-04] MEDS: ATORVASTATIN CA 40 MG TABLET (FP) PO SCH (22:07)
[2018-05-05] MEDS ORDERED: PT OWN MED DRAWER 7, Y5N ONE ×6 (00:48→23:00)
[2018-05-05] MEDS ORDERED: ACETAMINOPHEN 325 MG TABLET (FP) PO ONE ×2 (02:15→16:00)
[2018-05-05] MEDS: INSULIN SLIDING SCALE (NOVOLOG) 1 VIAL SQ SCH ×4 (06:12→21:56)
[2018-05-05] MEDS ORDERED: INSULIN (LEVEMIR) 100 UNITS/ML UNITS SQ SCH (07:00)
[2018-05-05 08:19] LABS: HEMATOCRIT 22.3 % (32.4-45.2); HEMOGLOBIN 7.5 GM/dL (10.7-15.3); MCH 28.9 pg (25.7-33.7); MCHC 33.7 g/dl (32.0-36.0); MEAN CELL VOLUME 85.8 fl (80-96); MEAN PLT VOLUME 11.2 fl (7.5-11.1); PLATELET COUNT 142 K/MM3 (134-434)
[2018-05-05 08:54] LABS: CHOLESTEROL 138 mg/dL (50-200); HDL CHOLESTEROL 10 mg/dL (40-60); TRIGLYCERIDES 485 mg/dL (0-150)
[2018-05-05 09:06] LABS: ALBUMIN 2.2 g/dl (3.4-5.0); ALK PHOS 66 U/L (45-117); ANION GAP 9 MMOL/L (8-16); BILIRUBIN,TOTAL 0.7 mg/dL (0.2-1); BLOOD UREA NITROGEN 58 mg/dL (7-18); CHLORIDE 95 mmol/L (98-107); CO2 27 mmol/L (21-32); CREATININE 2.2 mg/dL (0.55-1.3); GLUCOSE,RANDOM 252 mg/dL (74-106); POTASSIUM 4.3 mmol/L (3.5-5.1); SGOT/AST 13 U/L (15-37); SGPT/ALT 21 U/L (13-61); SODIUM 131 mmol/L (136-145); TOT PROT 5.4 g/dl (6.4-8.2)
[2018-05-05] MEDS: FUROSEMIDE 40 MG/4 ML INJECTABLE VIAL IVPUSH SCH (09:52)
[2018-05-05] MEDS: CLOPIDOGREL BISULFATE 75 MG TABLET (FP) PO SCH (09:53)
[2018-05-05] MEDS: LOSARTAN POTASSIUM 50 MG TABLET (FP) PO SCH (09:53)
[2018-05-05] MEDS: HEPARIN NA (PORCINE) 5,000 UNITS/ML 1ML VIAL SQ SCH ×2 (09:53→21:56)
[2018-05-05] MEDS ORDERED: SODIUM CHLORIDE 1,000 ML IV SCH (10:15)
--- NOTE | 2018-05-05 11:10 | CONSULT ---
Consult - text type - Consultation Consultation Note: Renal follow up for HORACE This is a 67 year old woman with hx of Hypertension, CAD, DM, Anemia who presented with sob and cough and admitted for suspected cystitis with HORACE. Pt s/ p recent cardiac cath with stent placement on 05/02. Pt denies any hx of CKD, kidney stones. Pt does report NSAID use at home for headaches. No flank pain, N/ V/D. Continues to have dysuria. Has cough, no sob. PMhx: as above Allergies: NKDA Family Hx: NC Social Hx: No T/A/D ROS: as per HPI Home Medications Medication Instructions Recorded Mometasone Furoate [Asmanex 220Mcg 2 inh IH DAILY PRN 08/02/12 -] Atorvastatin Ca [Lipitor] 40 mg PO HS #30 tablet 01/02/15 Clopidogrel Bisulfate [Plavix -] 75 mg PO DAILY 06/19/17 Furosemide [Lasix -] 40 mg PO DAILY #30 tablet 06/24/17 Insulin (Levemir) [Levemir Vial] 25 units SQ HS #100 units MDD 1 09/12/17 Insulin (Levemir) [Levemir Vial] 45 units SQ AM #120 units MDD 1 09/12/17 Furosemide [Lasix] 40 mg PO DAILY #30 tablet 03/23/18 Losartan Potassium [Cozaar -] 100 mg PO DAILY #30 tablet 03/23/18 Vital Signs Temperature 98.9 F 05/05/18 06:00 Pulse Rate 78 05/05/18 06:00 Respiratory Rate 20 05/05/18 08:28 Blood Pressure 101/74 05/05/18 06:00 O2 Sat by Pulse Oximetry (%) 96 05/05/18 08:28 Intake & Output 05/02/18 05/03/18 05/04/18 05/05/18 23:59 23:59 23:59 23:59 Weight 110 kg 110 kg 109.996 kg NAD awake and alert neck supple, No JVD RRR, no M/R CTA, dec bs but no rales soft, obese NT/ND trace edmea in LE L>R no bladder distension CBC, BMP 05/05/18 06:45 05/05/18 06:45 Current Medications Atorvastatin Calcium (Lipitor -) 40 mg PO HS [facility] Last Admin: 05/04/18 22:07 Dose: 40 mg Clopidogrel Bisulfate (Plavix -) 75 mg PO DAILY [facility] Last Admin: 05/05/18 09:53 Dose: 75 mg Heparin Sodium (Porcine) (Heparin -) 5,000 unit SQ BID [facility] Last Admin: 05/05/18 09:53 Dose: 5,000 unit Aztreonam 2 gm/ Dextrose 100 mls @ 100 mls/hr IVPB Q12H [facility]; Protocol Last Admin: 05/04/18 23:55 Dose: 100 mls/hr Sodium Chloride (Normal Saline -) 1,000 mls @ 75 mls/hr IV ASDIR [facility] Last Admin: 05/05/18 10:56 Dose: 75 mls/hr Insulin Aspart (Novolog Vial Sliding Scale -) 1 vial SQ ACHS [facility]; Protocol Last Admin: 05/05/18 06:12 Dose: 4 units Insulin Detemir (Levemir Vial) 25 units SQ HS [facility] Last Admin: 05/04/18 22:07 Dose: 25 units Insulin Detemir (Levemir Vial) 45 units SQ AM [facility] Last Admin: 05/05/18 06:12 Dose: 45 units Mometasone Furoate (Asmanex 220mcg -) 2 puff IH DAILY [facility] Last Admin: 05/04/18 12:39 Dose: Not Given 67 year old woman with hx of Hypertension, CAD, DM, Anemia who presented with sob and cough and admitted for suspected cystitis with HORACE. #HORACE likely multifactoral with possible ATN from contrast +/- NSAIDs vs. sepsis but will also need to r/o obstruction #SOB w/o CXR evidence of CHF #Cystitis #Anemia #DM #CAD s/p recent PCI Check urine studies to access for tubular damage and AIN check Kidney and bladder US to r/o hydronephrosis vs. retention avoid NSAIDS, PETE/ARB and diuretics for now Trial of IVF x 24 hours, if sob worsens can hold and give Lasix as needed bautista all meds for CrCl < 20 no emergent indication for MAYONNAISE MIXER at the present time Monitor renal function and electrolytes daily continue Abx as per ID Cardiology following Check iron studies, transfuse as per protocol
[2018-05-05] MEDS ORDERED: FUROSEMIDE 40 MG/4 ML INJECTABLE VIAL IVPUSH SCH (11:22)
--- NOTE | 2018-05-05 11:23 | PN ---
Progress Note, Physician - Current Medication List Current Medications: Active Medications Atorvastatin Calcium (Lipitor -) 40 mg PO HS [facility] Last Admin: 05/04/18 22:07 Dose: 40 mg Clopidogrel Bisulfate (Plavix -) 75 mg PO DAILY [facility] Last Admin: 05/05/18 09:53 Dose: 75 mg Heparin Sodium (Porcine) (Heparin -) 5,000 unit SQ BID [facility] Last Admin: 05/05/18 09:53 Dose: 5,000 unit Aztreonam 2 gm/ Dextrose 100 mls @ 100 mls/hr IVPB Q12H [facility]; Protocol Last Admin: 05/04/18 23:55 Dose: 100 mls/hr Sodium Chloride (Normal Saline -) 1,000 mls @ 75 mls/hr IV ASDIR [facility] Last Admin: 05/05/18 10:56 Dose: 75 mls/hr Insulin Aspart (Novolog Vial Sliding Scale -) 1 vial SQ ACHS [facility]; Protocol Last Admin: 05/05/18 06:12 Dose: 4 units Insulin Detemir (Levemir Vial) 25 units SQ HS [facility] Last Admin: 05/04/18 22:07 Dose: 25 units Insulin Detemir (Levemir Vial) 45 units SQ AM [facility] Last Admin: 05/05/18 06:12 Dose: 45 units Mometasone Furoate (Asmanex 220mcg -) 2 puff IH DAILY [facility] Last Admin: 05/04/18 12:39 Dose: Not Given - Objective Vital Signs: Vital Signs Temperature 98.9 F 05/05/18 06:00 Pulse Rate 78 05/05/18 06:00 Respiratory Rate 20 05/05/18 08:28 Blood Pressure 101/74 05/05/18 06:00 O2 Sat by Pulse Oximetry (%) 96 05/05/18 08:28 Cardiovascular: Yes: Tachycardia, S1, S2 Respiratory: Yes: On Nasal O2, Rhonchi Gastrointestinal: Yes: Normal Bowel Sounds, Soft Labs: CBC, BMP 05/05/18 06:45 05/05/18 06:45 INR, PTT INR 1.23 (0.83-1.09) H 05/03/18 22:00 Assessment/Plan - Problems (1) Acute exacerbation of CHF (congestive heart failure) Assessment/Plan: telemetry hold lasix iv daily--reising cr monitor sodium and renal function trend bnp cozaar Code(s): I50.9 - HEART FAILURE, UNSPECIFIED Qualifiers: Heart failure type: unspecified Qualified Code(s): I50.9 - Heart failure, unspecified (2) UTI (urinary tract infection) Assessment/Plan: aztreonam Code(s): N39.0 - URINARY TRACT INFECTION, SITE NOT SPECIFIED (3) Sepsis Assessment/Plan: cultures pending repeat lactic acid wbc 11.3 broad spectrum antibiotics Code(s): A41.9 - SEPSIS, UNSPECIFIED ORGANISM (4) Anemia Assessment/Plan: iron panel transfuse prbc gi consult ppi dc plavix Code(s): D64.9 - ANEMIA, UNSPECIFIED Qualifiers: (5) Diabetes mellitus with hyperglycemia Assessment/Plan: bgm sliding scale hgba1c levemir endocrine eval Code(s): E11.65 - TYPE 2 DIABETES MELLITUS WITH HYPERGLYCEMIA (6) Copd Assessment/Plan: NEBS PULM
[2018-05-05] MEDS ORDERED: PANTOPRAZOLE SODIUM 80 MG in SODIUM CHLORIDE 100 ML IVPB SCH (11:30)
[2018-05-05 12:19] LABS: URINE APPEARANCE CLOUDY; URINE BILIRUBIN NEGATIVE (<2.0 mg/dL); URINE COLOR YELLOW; URINE GLUCOSE (UA) 1+ (NEGATIVE); URINE KETONE NEGATIVE (NEGATIVE); URINE LEUK ESTERASE 3+ (NEGATIVE); URINE NITRITE NEGATIVE (NEGATIVE); URINE PROTEIN 2+ (NEGATIVE); URINE UROBILINOGEN NEGATIVE mg/dL (0.2-1.0)
[2018-05-05 12:28] LABS: EPI CELLS FEW /HPF (FEW); URINE BACTERIA FEW /hpf (NONE SEEN); URINE HYALINE CAST 16 /lpf; URINE MUCUS RARE
[2018-05-05] MEDS: AZTREONAM 2 GM in DEXTROSE 5%-WATER 100 ML IVPB SCH (13:00)
--- NOTE | 2018-05-05 13:01 | CON.GI ---
Consult Consult Specialty:: GI: Dr. Villagomez covering for Dr. Alvarado [facility] resumes coverage 05/07 Referred by:: Dr. Rigo Payne Reason for Consultation:: Anemia - History of Present Illness Chief Complaint: Shortness of breath History of Present Illness: 67 y/o woman with known history of anemia admitted through [facility] for evaluation of worsening SOB, VASQUEZ, fatigue, and weakness. Patient denies dark stools,or hematuria. She is followed by Dr. Alvarado. She underwent EGD/ Colonoscopy performed by him 06/23/17: EGD was unrevealing and colonoscopy revealed diminutive ascending colon polyps. It is unclear if further work-up such as outpatient capsule endoscopy was performed. - History Source History Provided By: Patient, Medical Record - Past Medical History Cardio/Vascular: Yes: CAD (S/P STENTING), HTN, Hyperlipdemia. No: AFIB Pulmonary: Yes: Asthma, Sleep Apnea Gastrointestinal: Yes: GERD. No: Ascites Musculoskeletal: Yes: Osteoarthritis Endocrine: Yes: Diabetes Mellitus - Alcohol/Substance Use Hx Alcohol Use: No History of Substance Use: reports: None - Smoking History Smoking history: Unknown if ever smoked Have you smoked in the past 12 months: No Aproximately how many cigarettes per day: 0 - Social History ADL: Family Assistance History of Recent Travel: No Home Medications - Allergies Allergies/Adverse Reactions: Allergies Allergy/AdvReac Type Severity Reaction Status Date / Time Penicillins Allergy Difficulty Verified 03/21/18 11:56 Breathing - Home Medications Home Medications: Ambulatory Orders Mometasone Furoate [Asmanex 220Mcg -] 2 inh IH DAILY PRN 08/02/12 Atorvastatin Ca [Lipitor] 40 mg PO HS #30 tablet 01/02/15 Clopidogrel Bisulfate [Plavix -] 75 mg PO DAILY 06/19/17 Furosemide [Lasix -] 40 mg PO DAILY #30 tablet 06/24/17 Insulin (Levemir) [Levemir Vial] 25 units SQ HS #100 units MDD 1 09/12/17 Insulin (Levemir) [Levemir Vial] 45 units SQ AM #120 units MDD 1 09/12/17 Furosemide [Lasix] 40 mg PO DAILY #30 tablet 03/23/18 Losartan Potassium [Cozaar -] 100 mg PO DAILY #30 tablet 03/23/18 Family Disease History - Family Disease History Family Disease History: Diabetes: Mother, Sister Review of Systems - Review of Systems Respiratory: reports: Orthopnea, SOB, SOB on Exertion Physical Exam-GI Vital Signs: Vital Signs Temperature 98.2 F 05/05/18 10:00 Pulse Rate 77 05/05/18 10:00 Respiratory Rate 20 05/05/18 10:00 Blood Pressure 110/50 L 05/05/18 10:00 O2 Sat by Pulse Oximetry (%) 96 05/05/18 08:28 Constitutional: Yes: Calm Eyes: No: Sclera Icterus Cardiovascular: Yes: Regular Rate and Rhythm, Murmur Respiratory: Yes: Diminished (at bases bilaterally) Gastrointestinal Inspection: No: Distention, Scars ...Auscultate: Yes: Normoactive Bowel Sounds ...Palpate: Yes: Soft. No: Hepatomegaly, Splenomegaly ...Percussion: No: Tympanitic Edema: Yes Edema: LLE: 1+, RLE: 1+ Neurological: Yes: Alert Labs: CBC, BMP 05/05/18 06:45 05/05/18 06:45 INR, PTT INR 1.23 (0.83-1.09) H 05/03/18 22:00 Problem List - Problems (1) Anemia Assessment/Plan: Normocytic anemia, guaiac negative on exam with recent GI work-up Advise: Further evaluation for concomitant causes of anemia aside from GI blood loss. Consider heme evaluation Dr. Alvarado to review case when he resumes care 05/07. Unclear if capsule endoscopy pursued as an outpatient Code(s): D64.9 - ANEMIA, UNSPECIFIED
--- NOTE | 2018-05-05 13:01 | PN ---
Progress Note (short form) - Note Progress Note: PULMONARY CONSULTATION DICTATED 05/05/18 IMP DYSPNEA ACUTE ON CHRONIC CHF SYMPTOMATIC ANEMIA GRAM NEGATIVE BACTEREMIA UROSEPSIS ASHD S/P VT,S/P STENT ACUTE ON CHRONIC KIDNEY INJURY LIKELY OSAS ASTHMA HTN HLD PLAN ABX PER ID O2 LASIX INHALED BRONCHODILATORS NORMAL TRANSFUSION THRESHOLD MONITOR H+H MONITOR LYTES,RENAL FUNCTION SLEEP SCREEN DR MANN
--- NOTE | 2018-05-05 13:14 | PN ---
Progress Note, Physician History of Present Illness: AWAKE, ALERT REPORTS DYSURIA IMPROVED NO C/O SUPRAPUBIC OR FLANK PAIN FEBRILE OVERNIGHT TOLERATED AZTREONAM BC, URINE C/S GNR - Current Medication List Current Medications: Active Medications Albuterol/Ipratropium (Duoneb -) 1 amp NEB RQID [facility] Atorvastatin Calcium (Lipitor -) 40 mg PO HS [facility] Last Admin: 05/04/18 22:07 Dose: 40 mg Furosemide (Lasix Injection -) 40 mg IVPUSH [employer]INE[employer] [facility] Stop: 05/05/18 18:00 Heparin Sodium (Porcine) (Heparin -) 5,000 unit SQ BID [facility] Last Admin: 05/05/18 09:53 Dose: 5,000 unit Aztreonam 2 gm/ Dextrose 100 mls @ 100 mls/hr IVPB Q12H [facility]; Protocol Last Admin: 05/05/18 13:00 Dose: 100 mls/hr Sodium Chloride (Normal Saline -) 1,000 mls @ 75 mls/hr IV [facility] Last Admin: 05/05/18 10:56 Dose: 75 mls/hr Insulin Aspart (Novolog Vial Sliding Scale -) 1 vial SQ ACHS [facility]; Protocol Last Admin: 05/05/18 12:02 Dose: 8 units Insulin Detemir (Levemir Vial) 25 units SQ HS [facility] Last Admin: 05/04/18 22:07 Dose: 25 units Insulin Detemir (Levemir Vial) 45 units SQ AM [facility] Last Admin: 05/05/18 06:12 Dose: 45 units Mometasone Furoate (Asmanex 220mcg -) 2 puff IH DAILY [facility] Last Admin: 05/04/18 12:39 Dose: Not Given Ranitidine HCl (Zantac -) 150 mg PO DAILY [facility] - Objective Vital Signs: Vital Signs Temperature 98.2 F 05/05/18 10:00 Pulse Rate 77 05/05/18 10:00 Respiratory Rate 20 05/05/18 10:00 Blood Pressure 110/50 L 05/05/18 10:00 O2 Sat by Pulse Oximetry (%) 96 05/05/18 08:28 Constitutional: Yes: No Distress, Obese Cardiovascular: Yes: Regular Rate and Rhythm, S1, S2 Respiratory: Yes: CTA Bilaterally Gastrointestinal: Yes: Normal Bowel Sounds, Soft, Abdomen, Obese. No: Tenderness Labs: CBC, BMP 05/05/18 06:45 05/05/18 06:45 INR, PTT INR 1.23 (0.83-1.09) H 05/03/18 22:00 Assessment/Plan UTI/ SEPSIS SECONDARY TO UTI LEUKOCYTOSIS- RESOLVED LACTIC ACIDOSIS- RESOLVED AZOTEMIA PCN ALLERGY AWAIT C/S CONTINUE AZTREONAM
--- NOTE | 2018-05-05 13:57 | PN ---
Progress Note, Physician Chief Complaint: less sob tele neg History of Present Illness: The patient is a 67-year-old morbidly obese female, we've a history of diabetes , hypertension, hyperlipidemia, asthma, coronary artery disease and myocardial infarction, status post stenting of the mid LAD on 05/02/2017, now admitted with fever, dysuria, cough. The patient denies chest pains. She is in no apparent distress. The patient reports no chest pains. Troponins and creatinine are elevated. Mild acute on chronic diastolic heart failure. - Current Medication List Current Medications: Active Medications Albuterol/Ipratropium (Duoneb -) 1 amp NEB RQID [facility] Atorvastatin Calcium (Lipitor -) 40 mg PO HS [facility] Last Admin: 05/04/18 22:07 Dose: 40 mg Furosemide (Lasix Injection -) 40 mg IVPUSH [employer] [facility] Stop: 05/05/18 18:00 Heparin Sodium (Porcine) (Heparin -) 5,000 unit SQ BID [facility] Last Admin: 05/05/18 09:53 Dose: 5,000 unit Aztreonam 2 gm/ Dextrose 100 mls @ 100 mls/hr IVPB Q12H [facility]; Protocol Last Admin: 05/05/18 13:00 Dose: 100 mls/hr Sodium Chloride (Normal Saline -) 1,000 mls @ 75 mls/hr IV ASDIR [facility] Last Admin: 05/05/18 10:56 Dose: 75 mls/hr Insulin Aspart (Novolog Vial Sliding Scale -) 1 vial SQ ACHS [facility]; Protocol Last Admin: 05/05/18 12:02 Dose: 8 units Insulin Detemir (Levemir Vial) 25 units SQ HS [facility] Last Admin: 05/04/18 22:07 Dose: 25 units Insulin Detemir (Levemir Vial) 45 units SQ AM [facility] Last Admin: 05/05/18 06:12 Dose: 45 units Mometasone Furoate (Asmanex 220mcg -) 2 puff IH DAILY [facility] Last Admin: 05/04/18 12:39 Dose: Not Given Ranitidine HCl (Zantac -) 150 mg PO DAILY [facility] - Objective Vital Signs: Vital Signs Temperature 98.2 F 05/05/18 10:00 Pulse Rate 77 05/05/18 10:00 Respiratory Rate 20 05/05/18 10:00 Blood Pressure 110/50 L 05/05/18 10:00 O2 Sat by Pulse Oximetry (%) 96 05/05/18 08:28 Constitutional: Yes: Well Nourished, No Distress, Obese Eyes: Yes: Conjunctiva Clear, EOM Intact HENT: Yes: Atraumatic, Normocephalic Neck: Yes: Supple, Trachea Midline Cardiovascular: Yes: Regular Rate and Rhythm Respiratory: Yes: CTA Bilaterally Gastrointestinal: Yes: Normal Bowel Sounds, Soft Extremities: Yes: WNL Edema: No Peripheral Pulses WNL: Yes Labs: CBC, BMP 05/05/18 06:45 05/05/18 06:45 INR, PTT INR 1.23 (0.83-1.09) H 05/03/18 22:00 Assessment/Plan The patient is a 67-year-old morbidly obese female, we've a history of diabetes , hypertension, hyperlipidemia, asthma, coronary artery disease and myocardial infarction, status post stenting of the mid LAD on 05/02/2017, now admitted with fever, dysuria, cough. The patient denies chest pains. She is in no apparent distress. Troponins and creatinine are elevated. Mild acute on chronic diastolic heart failure. CAD--Continue Plavix. CHF--Continue intravenous Lasix, 40 mg twice daily Watch for hyponatremia. Watch renal function. Continue antibiotics for UTI. Watch hemoglobin and transfuse accordingly. No need for further cardiac workup nor testing at this point. Would monitor on telemetry one more day.
--- NOTE | 2018-05-05 16:18 | CONS ---
PULMONARY CONSULTATION DATE OF CONSULTATION: 05/05/2018 REFERRING PHYSICIAN: Rigo Payne MD Patient is a 67-year-old white female with past medical history of diabetes; hypertension; ASHD status post NC, status post stent to mid LAD on May 02, 2017; hyperlipidemia; asthma; morbid obesity; likely obstructive sleep apnea; anemia status post transfusions; GERD; osteoarthritis, admitted to [facility] with complaint of fever, dysuria, and cough. Patient denied any complaint of chest pain, nausea, vomiting, and diaphoresis. On admission, she was evaluated by for Infectious Disease and felt that the patient most likely had a urosepsis. She was placed on antibiotic therapy. Of note is she was noted to have elevated BUN and creatinine on admission. Patient was also evaluated by Cardiology; felt that patient most likely had [id number] congestive heart failure. The patient was started on Lasix IV. Patient is a nonsmoker. There is no history of occupational exposure to chemicals or fumes. On admission, the patient was found on CBC to have a hemoglobin of 7.5 g, the patient to be transfused. As stated before, she has a history of symptomatic anemia, has been transfused in the past and had a GI workup which was apparently negative for GI bleed. PAST MEDICAL HISTORY: Again includes ASHD status post NC, status post stent, morbid obesity, likely obstructive sleep apnea, asthma, diabetes, hypertension, hyperlipidemia, GERD, osteoarthritis. REVIEW OF SYSTEMS: Positive dyspnea. Positive orthopnea. Positive cough. No chest pain. No palpitations. Positive fever. No chills. No hemoptysis. No abdominal pain. Positive mild lower extremity edema. CURRENT MEDICATIONS: Include Asmanex, Azactam, heparin, DuoNebs, normal saline, Lipitor, NovoLog, Levemir, Lasix, and pantoprazole. PHYSICAL EXAMINATION: General: The patient is a morbidly obese female, well awake, alert, in no acute respiratory distress. Vital Signs: T-max is 101.8, currently 98.2. HEENT: Normocephalic, atraumatic. Neck: Supple. Heart: Regular S1, S2. Chest: Few diminished breath sounds bilaterally. Abdomen: Soft. Bowel sounds are positive. Extremities: Trace bilateral extremity edema. LABORATORY DATA: WBC is 8, hemoglobin 7.5 g, hematocrit 22.5 with a platelet count 142,000. INR is 1.23. Blood gases not performed. Chemistries: BUN 58, creatinine 2.2. Hemoglobin A1c is 11.6. Troponin 0.74. BNP is greater than 4000. Chest x-ray reveals no definitive infiltrates and/or effusions, poor inspiratory effort. IMPRESSION: Dyspnea, multiple factors: 1. Likely severe, symptomatic anemia. 2. [id number] congestive heart failure. 3. Sepsis, gram negative bacteremia 4. Atherosclerotic heart disease status post stent. 5. [id number] kidney injury. 6. Hypertension. 7. History of asthma. 8. Likely obstructive sleep apnea. 9. Insulin-dependent diabetes mellitus. 10. Positive troponins. PLAN: IV antibiotics as per Infectious Disease, supplemental O2, normal transfusion threshold, monitor hemoglobin and hematocrit, monitor renal function, continue Lasix, supplemental O2, daily weight, sleep screen, further cardiac workup as per Cardiology, trend troponins. Thank you. Will follow closely with you. CHINO MANN M.D. [id number] MTDD
[2018-05-05] MEDS: ALBUTEROL SO4 2.5/IPRATROPIUM 0.5 INH SOL 3 ML VIAL.NEB. NEB SCH ×3 (16:48→21:04)
[2018-05-05] MEDS: MOMETASONE FUROATE 220 MCG/IH INHALER IH SCH (17:49)
--- NOTE | 2018-05-05 19:30 | CONSULT ---
Consult Consult Specialty:: endocrine Referred by:: dr.annabi vallejo Reason for Consultation:: diabetes mellitus - History of Present Illness Chief Complaint: high sugars History of Present Illness: 67 y/o woman with a PMHx of DM 2 ,morbid obesity,diet noncompliant, HTN, HLD, CAD, NC, Anemia, Asthma. Who presents w history of shortness of breath with a nonproductive cough, nausea and urinary frequency,and discomfort. Patient has had elevated blood sugars despite taking insulin,unsure what type or what medication she takes.family unaware of medication doses or when she took last insulin dose. Patient denies hypoglycemia, dizziness, CP, palpitations, AP, diarrhea - Past Medical History Cardio/Vascular: Yes: CAD (S/P STENTING), HTN, Hyperlipdemia. No: AFIB Pulmonary: Yes: Asthma, Sleep Apnea Gastrointestinal: Yes: GERD. No: Ascites Musculoskeletal: Yes: Osteoarthritis Endocrine: Yes: Diabetes Mellitus - Alcohol/Substance Use Hx Alcohol Use: No History of Substance Use: reports: None - Smoking History Smoking history: Unknown if ever smoked Have you smoked in the past 12 months: No Aproximately how many cigarettes per day: 0 - Social History ADL: Family Assistance History of Recent Travel: No Home Medications - Allergies Allergies/Adverse Reactions: Allergies Allergy/AdvReac Type Severity Reaction Status Date / Time Penicillins Allergy Difficulty Verified 03/21/18 11:56 Breathing - Home Medications Home Medications: Ambulatory Orders Mometasone Furoate [Asmanex 220Mcg -] 2 inh IH DAILY PRN 08/02/12 Atorvastatin Ca [Lipitor] 40 mg PO HS #30 tablet 01/02/15 Clopidogrel Bisulfate [Plavix -] 75 mg PO DAILY 06/19/17 Furosemide [Lasix -] 40 mg PO DAILY #30 tablet 06/24/17 Insulin (Levemir) [Levemir Vial] 25 units SQ HS #100 units MDD 1 09/12/17 Insulin (Levemir) [Levemir Vial] 45 units SQ AM #120 units MDD 1 09/12/17 Furosemide [Lasix] 40 mg PO DAILY #30 tablet 03/23/18 Losartan Potassium [Cozaar -] 100 mg PO DAILY #30 tablet 03/23/18 Family Disease History - Family Disease History Family Disease History: Diabetes: Mother, Sister Review of Systems - Review of Systems Constitutional: reports: Lethargy, Weakness Eyes: reports: Blurred Vision HENT: reports: Nasal Congestion Neck: reports: No Symptoms Cardiovascular: reports: Palpitations, Shortness of Breath Respiratory: reports: Exercise Intolerance, SOB, SOB on Exertion Gastrointestinal: reports: Bloating Genitourinary: reports: No Symptoms Breasts: reports: No Symptoms Reported Musculoskeletal: reports: Joint Swelling, Muscle Pain, Muscle Weakness Endocrine: reports: Unexplained Weight Gain Physical Exam Vital Signs: Vital Signs Temperature 99.2 F 05/05/18 18:00 Pulse Rate 78 05/05/18 18:00 Respiratory Rate 20 05/05/18 18:00 Blood Pressure 128/64 05/05/18 18:00 O2 Sat by Pulse Oximetry (%) 96 05/05/18 08:28 Constitutional: Yes: Anxious Eyes: Yes: EOM Intact HENT: Yes: Normocephalic Neck: Yes: Trachea Midline Cardiovascular: Yes: Tachycardia, Murmur Respiratory: Yes: On Nasal O2 Gastrointestinal: Yes: Abdomen, Obese ...Rectal Exam: Yes: Deferred Renal/: Yes: WNL Musculoskeletal: Yes: Muscle Pain, Muscle Weakness Extremities: Yes: WNL Neurological: Yes: Alert, Oriented Labs: CBC, BMP 05/05/18 06:45 05/05/18 06:45 Problem List - Problems (1) Type 2 diabetes mellitus with retinopathy without macular edema Code(s): E11.319 - TYPE 2 DIABETES W UNSP DIABETIC RTNOP W/O MACULAR EDEMA (2) Acute exacerbation of CHF (congestive heart failure) Code(s): I50.9 - HEART FAILURE, UNSPECIFIED Qualifiers: Heart failure type: unspecified Qualified Code(s): I50.9 - Heart failure, unspecified (3) Anemia Code(s): D64.9 - ANEMIA, UNSPECIFIED (4) Asthma Code(s): J45.909 - UNSPECIFIED ASTHMA, UNCOMPLICATED (5) UTI (urinary tract infection) Code(s): N39.0 - URINARY TRACT INFECTION, SITE NOT SPECIFIED (6) HORACE (acute kidney injury) Code(s): N17.9 - ACUTE KIDNEY FAILURE, UNSPECIFIED (7) Acute hypoxemic respiratory failure Code(s): J96.01 - ACUTE RESPIRATORY FAILURE WITH HYPOXIA Assessment/Plan Current Active Problems Acute exacerbation of CHF (congestive heart failure) (Acute) Anemia (Acute) Asthma (Acute) Sepsis (Acute) UTI (urinary tract infection) (Acute) diabetes mellitus ckd dm2,retinopathy cad hyperlipidemia sleep apnea/pickwickian Abnormal Lab Results 05/03/18 05/05/18 05/05/18 23:15 06:45 06:45 RBC 2.60 L Hgb 7.5 L Hct 22.3 L MPV 11.2 H Sodium 131 L Chloride 95 L BUN 58 H Creatinine 2.2 H Random Glucose 252 H Hemoglobin A1c % Calcium 8.0 L AST 13 L Creatine Kinase Troponin I Total Protein 5.4 L Albumin 2.2 L Triglycerides HDL Cholesterol Urine Protein Urine Glucose (UA) Urine Blood Ur Leukocyte Esterase U Random Total Protein Ur Random Sodium Random Vancomycin Crossmatch See Detail 05/05/18 05/05/18 05/05/18 06:45 06:45 08:15 RBC Hgb Hct MPV Sodium Chloride BUN Creatinine Random Glucose Hemoglobin A1c % 11.6 H Calcium AST Creatine Kinase Troponin I Total Protein Albumin Triglycerides 485 H HDL Cholesterol 10 L Urine Protein Urine Glucose (UA) Urine Blood Ur Leukocyte Esterase U Random Total Protein Ur Random Sodium Random Vancomycin 15.9 L Crossmatch 05/05/18 05/05/18 05/05/18 11:45 11:45 11:45 RBC Hgb Hct MPV Sodium Chloride BUN Creatinine Random Glucose Hemoglobin A1c % Calcium AST Creatine Kinase Troponin I Total Protein Albumin Triglycerides HDL Cholesterol Urine Protein 2+ H Urine Glucose (UA) 1+ H D Urine Blood 1+ H Ur Leukocyte Esterase 3+ H U Random Total Protein 95.3 H Ur Random Sodium 27 L Random Vancomycin Crossmatch 05/05/18 11:55 RBC Hgb Hct MPV Sodium Chloride BUN Creatinine Random Glucose Hemoglobin A1c % Calcium AST Creatine Kinase 215 H Troponin I 0.74 H* Total Protein Albumin Triglycerides HDL Cholesterol Urine Protein Urine Glucose (UA) Urine Blood Ur Leukocyte Esterase U Random Total Protein Ur Random Sodium Random Vancomycin Crossmatch Laboratory Results - last 24 hr 05/03/18 05/04/18 05/05/18 23:15 22:05 06:10 WBC RBC Hgb Hct MCV MCH MCHC RDW Plt Count MPV Sodium Potassium Chloride Carbon Dioxide Anion Gap BUN Creatinine Creat Clearance w eGFR POC Glucometer 446 241 Random Glucose Hemoglobin A1c % Lactic Acid Calcium Ferritin Total Bilirubin AST ALT Alkaline Phosphatase Creatine Kinase Creatine Kinase Index CK-MB (CK-2) Troponin I Total Protein Albumin Triglycerides Cholesterol Total LDL Cholesterol HDL Cholesterol Urine Color Urine Appearance Urine pH Ur Specific Dana Urine Protein Urine Glucose (UA) Urine Ketones Urine Blood Urine Nitrite Urine Bilirubin Urine Urobilinogen Ur Leukocyte Esterase Urine WBC (Auto) Urine RBC (Auto) Ur Epithelial Cells Urine Bacteria Hyaline Casts Urine Mucus U Random Total Protein Ur Random Sodium Urine Creatinine Random Vancomycin Blood Type O POSITIVE Antibody Screen Positive Antibody Identification K Crossmatch See Detail 05/05/18 05/05/18 05/05/18 06:45 06:45 06:45 WBC 8.0 RBC 2.60 L Hgb 7.5 L Hct 22.3 L MCV 85.8 MCH 28.9 MCHC 33.7 RDW 15.0 Plt Count 142 MPV 11.2 H Sodium 131 L Potassium 4.3 Chloride 95 L Carbon Dioxide 27 Anion Gap 9 BUN 58 H Creatinine 2.2 H Creat Clearance w eGFR 22.20 POC Glucometer Random Glucose 252 H Hemoglobin A1c % 11.6 H Lactic Acid Calcium 8.0 L Ferritin 196.6 Total Bilirubin 0.7 AST 13 L ALT 21 Alkaline Phosphatase 66 Creatine Kinase Creatine Kinase Index CK-MB (CK-2) Troponin I Total Protein 5.4 L Albumin 2.2 L Triglycerides Cholesterol Total LDL Cholesterol HDL Cholesterol Urine Color Urine Appearance Urine pH Ur Specific Dana Urine Protein Urine Glucose (UA) Urine Ketones Urine Blood Urine Nitrite Urine Bilirubin Urine Urobilinogen Ur Leukocyte Esterase Urine WBC (Auto) Urine RBC (Auto) Ur Epithelial Cells Urine Bacteria Hyaline Casts Urine Mucus U Random Total Protein Ur Random Sodium Urine Creatinine Random Vancomycin Blood Type Antibody Screen Antibody Identification Crossmatch 05/05/18 05/05/18 05/05/18 06:45 06:45 08:15 WBC RBC Hgb Hct MCV MCH MCHC RDW Plt Count MPV Sodium Potassium Chloride Carbon Dioxide Anion Gap BUN Creatinine Creat Clearance w eGFR POC Glucometer Random Glucose Hemoglobin A1c % Lactic Acid 1.1 Calcium Ferritin Total Bilirubin AST ALT Alkaline Phosphatase Creatine Kinase Creatine Kinase Index CK-MB (CK-2) Troponin I Total Protein Albumin Triglycerides 485 H Cholesterol 138 Total LDL Cholesterol 45 HDL Cholesterol 10 L Urine Color Urine Appearance Urine pH Ur Specific Dana Urine Protein Urine Glucose (UA) Urine Ketones Urine Blood Urine Nitrite Urine Bilirubin Urine Urobilinogen Ur Leukocyte Esterase Urine WBC (Auto) Urine RBC (Auto) Ur Epithelial Cells Urine Bacteria Hyaline Casts Urine Mucus U Random Total Protein Ur Random Sodium Urine Creatinine Random Vancomycin 15.9 L Blood Type Antibody Screen Antibody Identification Crossmatch 05/05/18 05/05/18 05/05/18 11:03 11:45 11:45 WBC RBC Hgb Hct MCV MCH MCHC RDW Plt Count MPV Sodium Potassium Chloride Carbon Dioxide Anion Gap BUN Creatinine Creat Clearance w eGFR POC Glucometer 304 Random Glucose Hemoglobin A1c % Lactic Acid Calcium Ferritin Total Bilirubin AST ALT Alkaline Phosphatase Creatine Kinase Creatine Kinase Index CK-MB (CK-2) Troponin I Total Protein Albumin Triglycerides Cholesterol Total LDL Cholesterol HDL Cholesterol Urine Color Urine Appearance Urine pH Ur Specific Dana Urine Protein Urine Glucose (UA) Urine Ketones Urine Blood Urine Nitrite Urine Bilirubin Urine Urobilinogen Ur Leukocyte Esterase Urine WBC (Auto) Urine RBC (Auto) Ur Epithelial Cells Urine Bacteria Hyaline Casts Urine Mucus U Random Total Protein 95.3 H Ur Random Sodium 27 L Urine Creatinine Random Vancomycin Blood Type Antibody Screen Antibody Identification Crossmatch 05/05/18 05/05/18 05/05/18 11:45 11:45 11:55 WBC RBC Hgb Hct MCV MCH MCHC RDW Plt Count MPV Sodium Potassium Chloride Carbon Dioxide Anion Gap BUN Creatinine Creat Clearance w eGFR POC Glucometer Random Glucose Hemoglobin A1c % Lactic Acid Calcium Ferritin Total Bilirubin AST ALT Alkaline Phosphatase Creatine Kinase 215 H Creatine Kinase Index 1.0 CK-MB (CK-2) 2.2 Troponin I 0.74 H* Total Protein Albumin Triglycerides Cholesterol Total LDL Cholesterol HDL Cholesterol Urine Color Yellow Urine Appearance Cloudy Urine pH 5.0 Ur Specific Dana 1.013 Urine Protein 2+ H Urine Glucose (UA) 1+ H D Urine Ketones Negative Urine Blood 1+ H Urine Nitrite Negative Urine Bilirubin Negative Urine Urobilinogen Negative Ur Leukocyte Esterase 3+ H Urine WBC (Auto) 37 Urine RBC (Auto) 8 Ur Epithelial Cells Few Urine Bacteria Few Hyaline Casts 16 Urine Mucus Rare U Random Total Protein Ur Random Sodium Urine Creatinine 106.0 Random Vancomycin Blood Type Antibody Screen Antibody Identification Crossmatch 05/05/18 16:31 WBC RBC Hgb Hct MCV MCH MCHC RDW Plt Count MPV Sodium Potassium Chloride Carbon Dioxide Anion Gap BUN Creatinine Creat Clearance w eGFR POC Glucometer 293 Random Glucose Hemoglobin A1c % Lactic Acid Calcium Ferritin Total Bilirubin AST ALT Alkaline Phosphatase Creatine Kinase Creatine Kinase Index CK-MB (CK-2) Troponin I Total Protein Albumin Triglycerides Cholesterol Total LDL Cholesterol HDL Cholesterol Urine Color Urine Appearance Urine pH Ur Specific Dana Urine Protein Urine Glucose (UA) Urine Ketones Urine Blood Urine Nitrite Urine Bilirubin Urine Urobilinogen Ur Leukocyte Esterase Urine WBC (Auto) Urine RBC (Auto) Ur Epithelial Cells Urine Bacteria Hyaline Casts Urine Mucus U Random Total Protein Ur Random Sodium Urine Creatinine Random Vancomycin Blood Type Antibody Screen Antibody Identification Crossmatch plan: bgm q4h novolog coverage novolog 70/30 35 units bids levemir 50 units am daily insulin resistant need high dose for coverage
[2018-05-05] MEDS: ATORVASTATIN CA 40 MG TABLET (FP) PO SCH (21:56)
[2018-05-05] MEDS ORDERED: METOCLOPRAMIDE HCL INJECTION 10 MG/2 ML VIAL IVPUSH PRN (23:17)
[2018-05-06] MEDS ORDERED: FUROSEMIDE 40 MG/4 ML INJECTABLE VIAL IVPUSH ONE (00:35)
[2018-05-06] MEDS ORDERED: PT OWN MED DRAWER 7, Y5N ONE ×4 (01:12→21:33)
[2018-05-06] MEDS: FUROSEMIDE 40 MG/4 ML INJECTABLE VIAL IVPUSH SCH (01:15)
[2018-05-06] MEDS: AZTREONAM 2 GM in DEXTROSE 5%-WATER 100 ML IVPB SCH ×2 (01:24→11:07)
[2018-05-06] MEDS: INSULIN SLIDING SCALE (NOVOLOG) 1 VIAL SQ SCH ×6 (02:29→21:44)
[2018-05-06] MEDS ORDERED: POLYETHYLENE GLYCOL 3350 119 GM BTL PO PRN (05:07)
[2018-05-06 07:25] LABS: BASO % 0.6 % (0-2.0); EOS % 2.4 % (0-4.5); HEMATOCRIT 28.2 % (32.4-45.2); LYMPH % 11.6 % (8-40); MCH 30.5 pg (25.7-33.7); MCHC 35.5 g/dl (32.0-36.0); MEAN CELL VOLUME 85.9 fl (80-96); MEAN PLT VOLUME 11.4 fl (7.5-11.1); MONO % 15.3 % (3.8-10.2); NEUT % 70.1 % (42.8-82.8); PLATELET COUNT 148 K/MM3 (134-434); RBC 3.28 M/mm3 (3.60-5.2); RDW 14.7 % (11.6-15.6); WHITE BLOOD COUNT 8.1 K/mm3 (4.0-10.0)
[2018-05-06] MEDS: INSULIN (LEVEMIR) 100 UNITS/ML UNITS SQ SCH (07:39)
[2018-05-06] MEDS: INSULIN (NOVOLOG MIX 70/30) 100 UNITS/ML MDV SQ SCH ×2 (07:40→17:06)
[2018-05-06 07:44] LABS: ALBUMIN 2.1 g/dl (3.4-5.0); ALK PHOS 108 U/L (45-117); ANION GAP 8 MMOL/L (8-16); BILIRUBIN,TOTAL 0.4 mg/dL (0.2-1); BLOOD UREA NITROGEN 57 mg/dL (7-18); CALCIUM 7.9 mg/dL (8.5-10.1); CHLORIDE 98 mmol/L (98-107); CO2 28 mmol/L (21-32); CREATININE 1.5 mg/dL (0.55-1.3); GLUCOSE,RANDOM 207 mg/dL (74-106); MAGNESIUM 2.1 mg/dL (1.8-2.4); POTASSIUM 4.4 mmol/L (3.5-5.1); SGOT/AST 44 U/L (15-37); SGPT/ALT 59 U/L (13-61); SODIUM 134 mmol/L (136-145); TOT PROT 5.7 g/dl (6.4-8.2)
[2018-05-06 08:06] LABS: SERUM IRON SATURATION 6 % (15-55); TOTAL IRON BINDING CAPACITY 144 ug/dL (250-450); UIBC 135 ug/dL (118-369)
[2018-05-06] MEDS: ALBUTEROL SO4 2.5/IPRATROPIUM 0.5 INH SOL 3 ML VIAL.NEB. NEB SCH ×4 (08:25→20:30)
--- NOTE | 2018-05-06 09:19 | PN ---
Progress Note (short form) - Note Progress Note: Renal follow up for HORACE Pt seen and examined at the bedside s/p 2 units of prbc yesterday has no acute complaints, denies any sob, cp, abd pain, N/V/D making urine no fever or chills Vital Signs Temperature 98.7 F 05/06/18 06:53 Pulse Rate 73 05/06/18 06:53 Respiratory Rate 20 05/06/18 06:53 Blood Pressure 115/72 05/06/18 06:53 O2 Sat by Pulse Oximetry (%) 96 05/05/18 19:52 Intake & Output 05/03/18 05/04/18 05/05/18 05/06/18 23:59 23:59 23:59 23:59 Intake Total 120 100 Balance 120 100 Weight 110 kg 110 kg 109.769 kg 113.171 kg NAD RRR, no M/R CTA, dec bs soft, obese NT/ND no edema in LE no bladder distension CBC, BMP 05/06/18 06:30 05/06/18 06:30 Current Medications Albuterol/Ipratropium (Duoneb -) 1 amp NEB RQID [facility] Last Admin: 05/06/18 08:25 Dose: Not Given Atorvastatin Calcium (Lipitor -) 40 mg PO HS [facility] Last Admin: 05/05/18 21:56 Dose: 40 mg Furosemide (Lasix Injection -) 40 mg IVPUSH 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 [facility] Last Admin: 05/06/18 01:15 Dose: 40 mg Heparin Sodium (Porcine) (Heparin -) 5,000 unit SQ BID [facility] Last Admin: 05/05/18 21:56 Dose: 5,000 unit Aztreonam 2 gm/ Dextrose 100 mls @ 100 mls/hr IVPB Q12H [facility]; Protocol Last Admin: 05/06/18 01:24 Dose: 100 mls/hr Insulin Aspart (Novolog Vial Sliding Scale -) 1 vial SQ Q4HPO [facility]; Protocol Last Admin: 05/06/18 07:42 Dose: 2 units Insulin Aspart (Novolog Mix 70/30 Vial) 35 units SQ BIDAC [facility] Last Admin: 05/06/18 07:40 Dose: 35 units Insulin Detemir (Levemir Vial) 50 units SQ AM [facility] Last Admin: 05/06/18 07:39 Dose: 50 units Metoclopramide HCl (Reglan Injection -) 10 mg IVPUSH Q6H PRN PRN Reason: NAUSEA AND/OR VOMITING Last Admin: 05/05/18 23:28 Dose: 10 mg Mometasone Furoate (Asmanex 220mcg -) 2 puff IH DAILY [facility] Last Admin: 05/05/18 17:49 Dose: Not Given Pantoprazole Sodium (Protonix -) 20 mg PO HS [facility] Polyethylene Glycol (Miralax (For Daily Use) -) 17 gm PO DAILY PRN PRN Reason: CONSTIPATION Ranitidine HCl (Zantac -) 150 mg PO DAILY [facility] 67 year old woman with hx of Hypertension, CAD, DM, Anemia who presented with sob and cough and admitted for suspected cystitis with HORACE. #HORACE likely multifactoral with possible Renal hypoprofusion/ATN from contrast +/ - NSAIDs vs. sepsis but will also need to r/o obstruction #SOB #Hyponatremia in setting of renal dysfunction #Cystitis #Anemia #DM #CAD s/p recent PCI FeNa is 0.43% indicating preserved tubular function Urine Eosinophils pending US of Kidney/Bladder is pending Renal function improved s/p PRBC transfusion holding IVF because of concern over dyspnea bautista all meds for CrCl < 30 no emergent indication for [employer] at the present time Monitor renal function and electrolytes daily continue Abx as per ID Cardiology following Check iron studies, transfuse as per protocol Thank you Alvin Castro DO
[2018-05-06] MEDS: MOMETASONE FUROATE 220 MCG/IH INHALER IH SCH (11:06)
[2018-05-06] MEDS: HEPARIN NA (PORCINE) 5,000 UNITS/ML 1ML VIAL SQ SCH ×2 (11:06→21:43)
[2018-05-06] MEDS: RANITIDINE HCL 150 MG TABLET (FP) PO SCH (11:07)
--- NOTE | 2018-05-06 11:57 | PN ---
Progress Note, Physician - Current Medication List Current Medications: Active Medications Albuterol/Ipratropium (Duoneb -) 1 amp NEB RQID [facility] Last Admin: 05/06/18 11:20 Dose: Not Given Atorvastatin Calcium (Lipitor -) 40 mg PO HS [facility] Last Admin: 05/05/18 21:56 Dose: 40 mg Furosemide (Lasix Injection -) 40 mg IVPUSH [employer]DER [facility] Last Admin: 05/06/18 01:15 Dose: 40 mg Heparin Sodium (Porcine) (Heparin -) 5,000 unit SQ BID [facility] Last Admin: 05/06/18 11:06 Dose: 5,000 unit Aztreonam 2 gm/ Dextrose 100 mls @ 100 mls/hr IVPB Q12H [facility]; Protocol Last Admin: 05/06/18 11:07 Dose: 100 mls/hr Insulin Aspart (Novolog Vial Sliding Scale -) 1 vial SQ Q4HPO [facility]; Protocol Last Admin: 05/06/18 07:42 Dose: 2 units Insulin Aspart (Novolog Mix 70/30 Vial) 35 units SQ BIDAC [facility] Last Admin: 05/06/18 07:40 Dose: 35 units Insulin Detemir (Levemir Vial) 50 units SQ AM [facility] Last Admin: 05/06/18 07:39 Dose: 50 units Metoclopramide HCl (Reglan Injection -) 10 mg IVPUSH Q6H PRN PRN Reason: NAUSEA AND/OR VOMITING Last Admin: 05/05/18 23:28 Dose: 10 mg Mometasone Furoate (Asmanex 220mcg -) 2 puff IH DAILY [facility] Last Admin: 05/06/18 11:06 Dose: 2 puff Pantoprazole Sodium (Protonix -) 20 mg PO [facility] Polyethylene Glycol (Miralax (For Daily Use) -) 17 gm PO DAILY PRN PRN Reason: CONSTIPATION Ranitidine HCl (Zantac -) 150 mg PO DAILY [facility] Last Admin: 05/06/18 11:07 Dose: 150 mg - Objective Vital Signs: Vital Signs Temperature 98.7 F 05/06/18 06:53 Pulse Rate 73 05/06/18 06:53 Respiratory Rate 20 05/06/18 06:53 Blood Pressure 115/72 05/06/18 06:53 O2 Sat by Pulse Oximetry (%) 96 05/05/18 19:52 Cardiovascular: Yes: Regular Rate and Rhythm Respiratory: Yes: Regular, CTA Bilaterally Gastrointestinal: Yes: Normal Bowel Sounds, Soft Labs: CBC, BMP 05/06/18 06:30 05/06/18 06:30 INR, PTT INR 1.23 (0.83-1.09) H 05/03/18 22:00 Assessment/Plan - Problems (1) Acute exacerbation of CHF (congestive heart failure) Assessment/Plan: telemetry hold lasix iv daily--rising cr monitor sodium and renal function trend bnp cozaar Code(s): I50.9 - HEART FAILURE, UNSPECIFIED Qualifiers: Heart failure type: unspecified Qualified Code(s): I50.9 - Heart failure, unspecified (2) UTI (urinary tract infection) Assessment/Plan: aztreonam Code(s): N39.0 - URINARY TRACT INFECTION, SITE NOT SPECIFIED (3) Sepsis Assessment/Plan: cultures Microbiology 05/03/18 23:15 Blood - Peripheral Venous Blood Culture - Final Escherichia Coli 05/04/18 00:50 Urine - Urine - Catheterized Urine Culture - Final Escherichia Coli 05/03/18 23:00 Blood - Peripheral Venous Blood Culture - Final Escherichia Coli 05/05/18 02:00 Blood - Peripheral Venous Blood Culture - Preliminary NO GROWTH OBTAINED AFTER 24 HOURS, INCUBATION TO CONTINUE FOR 4 DAYS. 05/05/18 02:00 Blood - Peripheral Venous Blood Culture - Preliminary NO GROWTH OBTAINED AFTER 24 HOURS, INCUBATION TO CONTINUE FOR 4 DAYS. broad spectrum antibiotics Code(s): A41.9 - SEPSIS, UNSPECIFIED ORGANISM (4) Anemia Assessment/Plan: iron panel transfuse prbc gi consult ppi dc plavix Code(s): D64.9 - ANEMIA, UNSPECIFIED Qualifiers: (5) Diabetes mellitus with hyperglycemia Assessment/Plan: bgm sliding scale [id number] levemir endocrine eval Code(s): E11.65 - TYPE 2 DIABETES MELLITUS WITH HYPERGLYCEMIA (6) Copd Assessment/Plan: NEBS PULM
--- NOTE | 2018-05-06 12:06 | PN ---
Progress Note, Physician History of Present Illness: pulmonary alert,no distress,-cp,-sob. - Current Medication List Current Medications: Active Medications Albuterol/Ipratropium (Duoneb -) 1 amp NEB RQID [facility] Last Admin: 05/06/18 11:20 Dose: Not Given Atorvastatin Calcium (Lipitor -) 40 mg PO HS [facility] Last Admin: 05/05/18 21:56 Dose: 40 mg Furosemide (Lasix Injection -) 40 mg IVPUSH [employer] TECH[employer]IC[employer] [facility] Last Admin: 05/06/18 01:15 Dose: 40 mg Heparin Sodium (Porcine) (Heparin -) 5,000 unit SQ BID [facility] Last Admin: 05/06/18 11:06 Dose: 5,000 unit Aztreonam 2 gm/ Dextrose 100 mls @ 100 mls/hr IVPB Q12H [facility]; Protocol Last Admin: 05/06/18 11:07 Dose: 100 mls/hr Insulin Aspart (Novolog Vial Sliding Scale -) 1 vial SQ Q4HPO [facility]; Protocol Last Admin: 05/06/18 07:42 Dose: 2 units Insulin Aspart (Novolog Mix 70/30 Vial) 35 units SQ BIDAC [facility] Last Admin: 05/06/18 07:40 Dose: 35 units Insulin Detemir (Levemir Vial) 50 units SQ AM [facility] Last Admin: 05/06/18 07:39 Dose: 50 units Metoclopramide HCl (Reglan Injection -) 10 mg IVPUSH Q6H PRN PRN Reason: NAUSEA AND/OR VOMITING Last Admin: 05/05/18 23:28 Dose: 10 mg Mometasone Furoate (Asmanex 220mcg -) 2 puff IH DAILY [facility] Last Admin: 05/06/18 11:06 Dose: 2 puff Pantoprazole Sodium (Protonix -) 20 mg PO HS [facility] Polyethylene Glycol (Miralax (For Daily Use) -) 17 gm PO DAILY PRN PRN Reason: CONSTIPATION Ranitidine HCl (Zantac -) 150 mg PO DAILY [facility] Last Admin: 05/06/18 11:07 Dose: 150 mg - Objective Vital Signs: Vital Signs Temperature 98.7 F 05/06/18 06:53 Pulse Rate 73 05/06/18 06:53 Respiratory Rate 20 05/06/18 06:53 Blood Pressure 115/72 05/06/18 06:53 O2 Sat by Pulse Oximetry (%) 96 05/05/18 19:52 Constitutional: Yes: Well Nourished, Calm, Obese Eyes: Yes: WNL HENT: Yes: WNL Neck: Yes: WNL Cardiovascular: Yes: Regular Rate and Rhythm, S1, S2 Respiratory: Yes: Diminished Gastrointestinal: Yes: Normal Bowel Sounds, Soft Extremities: Yes: WNL Edema: No Labs: CBC, BMP 05/06/18 06:30 05/06/18 06:30 INR, PTT INR 1.23 (0.83-1.09) H 05/03/18 22:00 Assessment/Plan IMP DYSPNEA IMPROVED ACUTE ON CHRONIC CHF IMPROVING SYMPTOMATIC ANEMIA IMPROVED S/P TRANSFUSION GRAM NEGATIVE BACTEREMIA UROSEPSIS ASHD S/P AR,S/P STENT ACUTE ON CHRONIC KIDNEY INJURY LIKELY OSAS ASTHMA HTN HLD PLAN ABX PER ID O2 LASIX INHALED BRONCHODILATORS NORMAL TRANSFUSION THRESHOLD MONITOR H+H MONITOR LYTES,RENAL FUNCTION SLEEP SCREEN DR MANN
--- NOTE | 2018-05-06 12:23 | PN ---
Progress Note, Physician Chief Complaint: less sob tele neg History of Present Illness: The patient is a 67-year-old morbidly obese female, we've a history of diabetes , hypertension, hyperlipidemia, asthma, coronary artery disease and myocardial infarction, status post stenting of the mid LAD on 05/02/2017, now admitted with fever, dysuria, cough. The patient denies chest pains. She is in no apparent distress. The patient reports no chest pains. Troponins and creatinine are elevated. Mild acute on chronic diastolic heart failure. 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 [facility] Last Admin: 05/06/18 01:15 Dose: 40 mg Heparin Sodium (Porcine) (Heparin -) 5,000 unit SQ BID [facility] Last Admin: 05/06/18 11:06 Dose: 5,000 unit Aztreonam 2 gm/ Dextrose 100 mls @ 100 mls/hr IVPB Q12H [facility]; Protocol Last Admin: 05/06/18 11:07 Dose: 100 mls/hr Insulin Aspart (Novolog Vial Sliding Scale -) 1 vial SQ Q4HPO [facility]; Protocol Last Admin: 05/06/18 12:13 Dose: 4 units Insulin Aspart (Novolog Mix 70/30 Vial) 35 units SQ BIDAC [facility] Last Admin: 05/06/18 07:40 Dose: 35 units Insulin Detemir (Levemir Vial) 50 units SQ AM [facility] Last Admin: 05/06/18 07:39 Dose: 50 units Metoclopramide HCl (Reglan Injection -) 10 mg IVPUSH Q6H PRN PRN Reason: NAUSEA AND/OR VOMITING Last Admin: 05/05/18 23:28 Dose: 10 mg Mometasone Furoate (Asmanex 220mcg -) 2 puff IH DAILY [facility] Last Admin: 05/06/18 11:06 Dose: 2 puff Pantoprazole Sodium (Protonix -) 20 mg PO HS [facility] Polyethylene Glycol (Miralax (For Daily Use) -) 17 gm PO DAILY PRN PRN Reason: CONSTIPATION Ranitidine HCl (Zantac -) 150 mg PO DAILY [facility] Last Admin: 05/06/18 11:07 Dose: 150 mg - Objective Vital Signs: Vital Signs Temperature 98.7 F 05/06/18 06:53 Pulse Rate 73 05/06/18 06:53 Respiratory Rate 20 05/06/18 06:53 Blood Pressure 115/72 05/06/18 06:53 O2 Sat by Pulse Oximetry (%) 96 05/05/18 19:52 Constitutional: Yes: No Distress, Calm Eyes: Yes: EOM Intact HENT: Yes: Normocephalic Neck: Yes: Trachea Midline Cardiovascular: Yes: Regular Rate and Rhythm Respiratory: Yes: CTA Bilaterally Gastrointestinal: Yes: Normal Bowel Sounds, Soft Extremities: Yes: WNL Edema: No Labs: CBC, BMP 05/06/18 06:30 05/06/18 06:30 INR, PTT INR 1.23 (0.83-1.09) H 05/03/18 22:00 Assessment/Plan The patient is a 67-year-old morbidly obese female, we've a history of diabetes , hypertension, hyperlipidemia, asthma, coronary artery disease and myocardial infarction, status post stenting of the mid LAD on 05/02/2017, now admitted with fever, dysuria, cough. The patient denies chest pains. She is in no apparent distress. Troponins and creatinine are elevated. Mild acute on chronic diastolic heart failure. CAD--Continue Plavix. CHF--Improving on lasix IV Watch for hyponatremia. Watch renal function. Continue antibiotics for UTI. Watch hemoglobin and transfuse accordingly. No need for further cardiac workup nor testing at this point. Stable to stop telemetry monitoring.
--- NOTE | 2018-05-06 14:58 | PN ---
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 [facility] Last Admin: 05/06/18 01:15 Dose: 40 mg Heparin Sodium (Porcine) (Heparin -) 5,000 unit SQ BID [facility] Last Admin: 05/06/18 11:06 Dose: 5,000 unit Aztreonam 2 gm/ Dextrose 100 mls @ 100 mls/hr IVPB Q12H [facility]; Protocol Last Admin: 05/06/18 11:07 Dose: 100 mls/hr Insulin Aspart (Novolog Mix 70/30 Vial) 35 units SQ BIDAC [facility] Last Admin: 05/06/18 07:40 Dose: 35 units Insulin Aspart (Novolog Vial Sliding Scale -) 1 vial SQ Q4HPO [facility]; Protocol Insulin Detemir (Levemir Vial) 50 units SQ AM [facility] Last Admin: 05/06/18 07:39 Dose: 50 units Metoclopramide HCl (Reglan Injection -) 10 mg IVPUSH Q6H PRN PRN Reason: NAUSEA AND/OR VOMITING Last Admin: 05/05/18 23:28 Dose: 10 mg Mometasone Furoate (Asmanex 220mcg -) 2 puff IH DAILY [facility] Last Admin: 05/06/18 11:06 Dose: 2 puff Pantoprazole Sodium (Protonix -) 20 mg PO HS [facility] Polyethylene Glycol (Miralax (For Daily Use) -) 17 gm PO DAILY PRN PRN Reason: CONSTIPATION Ranitidine HCl (Zantac -) 150 mg PO DAILY [facility] Last Admin: 05/06/18 11:07 Dose: 150 mg - Objective Vital Signs: Vital Signs Temperature 97.9 F 05/06/18 13:56 Pulse Rate 72 05/06/18 13:56 Respiratory Rate 20 05/06/18 13:56 Blood Pressure 141/68 05/06/18 13:56 O2 Sat by Pulse Oximetry (%) 96 05/06/18 10:00 Constitutional: Yes: No Distress Eyes: Yes: Conjunctiva Clear Cardiovascular: Yes: Regular Rate and Rhythm, S1, S2 Respiratory: Yes: CTA Bilaterally Gastrointestinal: Yes: Normal Bowel Sounds, Soft, Abdomen, Obese. No: Tenderness Labs: CBC, BMP 05/06/18 06:30 05/06/18 06:30 INR, PTT INR 1.23 (0.83-1.09) H 05/03/18 22:00 Assessment/Plan UTI/ SEPSIS SECONDARY TO UTI E COLI LEUKOCYTOSIS- RESOLVED LACTIC ACIDOSIS- RESOLVED AZOTEMIA PCN ALLERGY CONTINUE AZTREONAM
[2018-05-06] MEDS: PANTOPRAZOLE 20 MG TABLET (FP) PO SCH (21:44)
[2018-05-06] MEDS: ATORVASTATIN CA 40 MG TABLET (FP) PO SCH (21:44)
[2018-05-07] MEDS: AZTREONAM 2 GM in DEXTROSE 5%-WATER 100 ML IVPB SCH ×2 (00:35→12:09)
[2018-05-07] MEDS: INSULIN SLIDING SCALE (NOVOLOG) 1 VIAL SQ SCH ×6 (02:03→21:26)
[2018-05-07] MEDS: INSULIN (LEVEMIR) 100 UNITS/ML UNITS SQ SCH (06:41)
[2018-05-07] MEDS: INSULIN (NOVOLOG MIX 70/30) 100 UNITS/ML MDV SQ SCH ×2 (06:41→17:19)
[2018-05-07] MEDS ORDERED: INSULIN (LEVEMIR) 100 UNITS/ML UNITS SQ ONE (07:03)
[2018-05-07] MEDS ORDERED: INSULIN (NOVOLOG MIX 70/30) 100 UNITS/ML MDV SQ ONE (07:03)
[2018-05-07] MEDS: ALBUTEROL SO4 2.5/IPRATROPIUM 0.5 INH SOL 3 ML VIAL.NEB. NEB SCH ×4 (07:16→20:11)
[2018-05-07] MEDS: FUROSEMIDE 40 MG/4 ML INJECTABLE VIAL IVPUSH SCH (07:17)
[2018-05-07 07:43] LABS: BASO % 0.6 % (0-2.0); EOS % 2.5 % (0-4.5); LYMPH % 14.8 % (8-40); MCH 29.5 pg (25.7-33.7); MCHC 34.5 g/dl (32.0-36.0); MEAN CELL VOLUME 85.7 fl (80-96); MONO % 11.3 % (3.8-10.2); NEUT % 70.8 % (42.8-82.8); PLATELET COUNT 201 K/MM3 (134-434); RBC 3.38 M/mm3 (3.60-5.2); RDW 15.1 % (11.6-15.6); WHITE BLOOD COUNT 9.7 K/mm3 (4.0-10.0)
[2018-05-07 08:27] LABS: ALBUMIN 2.2 g/dl (3.4-5.0); ALK PHOS 150 U/L (45-117); ANION GAP 7 MMOL/L (8-16); BILIRUBIN,TOTAL 0.4 mg/dL (0.2-1); BLOOD UREA NITROGEN 40 mg/dL (7-18); CALCIUM 8.8 mg/dL (8.5-10.1); CHLORIDE 103 mmol/L (98-107); CO2 29 mmol/L (21-32); CREATININE 1.1 mg/dL (0.55-1.3); GLUCOSE,RANDOM 96 mg/dL (74-106); POTASSIUM 4.4 mmol/L (3.5-5.1); SGOT/AST 44 U/L (15-37); SGPT/ALT 66 U/L (13-61); SODIUM 138 mmol/L (136-145)
[2018-05-07] MEDS ORDERED: PT OWN MED DRAWER 7, Y5N ONE (08:45)
[2018-05-07] MEDS: MOMETASONE FUROATE 220 MCG/IH INHALER IH SCH (09:02)
[2018-05-07] MEDS: HEPARIN NA (PORCINE) 5,000 UNITS/ML 1ML VIAL SQ SCH ×2 (09:03→21:26)
[2018-05-07] MEDS: RANITIDINE HCL 150 MG TABLET (FP) PO SCH (09:04)
--- NOTE | 2018-05-07 11:38 | PN ---
Progress Note, Physician History of Present Illness: pulmonary alert,feels weak.less dyspneic,-cp - Current Medication List Current Medications: Active Medications Albuterol/Ipratropium (Duoneb -) 1 amp NEB RQID [facility] Last Admin: 05/07/18 11:15 Dose: Not Given Atorvastatin Calcium (Lipitor -) 40 mg PO HS [facility] Last Admin: 05/06/18 21:44 Dose: 40 mg Heparin Sodium (Porcine) (Heparin -) 5,000 unit SQ BID [facility] Last Admin: 05/07/18 09:03 Dose: 5,000 unit Aztreonam 2 gm/ Dextrose 100 mls @ 100 mls/hr IVPB Q12H [facility]; Protocol Last Admin: 05/07/18 00:35 Dose: 100 mls/hr Insulin Aspart (Novolog Mix 70/30 Vial) 35 units SQ BIDAC [facility] Last Admin: 05/07/18 06:41 Dose: Not Given Insulin Aspart (Novolog Vial Sliding Scale -) 1 vial SQ Q4HPO [facility]; Protocol Last Admin: 05/07/18 09:08 Dose: Not Given Insulin Detemir (Levemir Vial) 50 units SQ AM [facility] Last Admin: 05/07/18 06:41 Dose: Not Given Metoclopramide HCl (Reglan Injection -) 10 mg IVPUSH Q6H PRN PRN Reason: NAUSEA AND/OR VOMITING Last Admin: 05/05/18 23:28 Dose: 10 mg Mometasone Furoate (Asmanex 220mcg -) 2 puff IH DAILY [facility] Last Admin: 05/07/18 09:02 Dose: 2 puff Pantoprazole Sodium (Protonix -) 20 mg PO HS [facility] Last Admin: 05/06/18 21:44 Dose: 20 mg Polyethylene Glycol (Miralax (For Daily Use) -) 17 gm PO DAILY PRN PRN Reason: CONSTIPATION Ranitidine HCl (Zantac -) 150 mg PO DAILY [facility] Last Admin: 05/07/18 09:04 Dose: 150 mg - Objective Vital Signs: Vital Signs Temperature 98.7 F 05/07/18 10:00 Pulse Rate 73 05/07/18 10:00 Respiratory Rate 20 05/07/18 10:00 Blood Pressure 136/68 05/07/18 10:00 O2 Sat by Pulse Oximetry (%) 96 05/07/18 08:21 Constitutional: Yes: Well Nourished, Calm Eyes: Yes: WNL HENT: Yes: WNL Neck: Yes: WNL Cardiovascular: Yes: WNL Respiratory: Yes: CTA Bilaterally Gastrointestinal: Yes: Normal Bowel Sounds, Soft Extremities: Yes: WNL Edema: Yes Labs: CBC, BMP 05/07/18 06:30 05/07/18 06:30 INR, PTT INR 1.23 (0.83-1.09) H 05/03/18 22:00 Assessment/Plan IMP DYSPNEA IMPROVED ACUTE ON CHRONIC CHF IMPROVING SYMPTOMATIC ANEMIA IMPROVED S/P TRANSFUSION GRAM NEGATIVE BACTEREMIA UROSEPSIS ASHD S/P GA,S/P STENT ACUTE ON CHRONIC KIDNEY INJURY LIKELY OSAS ASTHMA HTN HLD PLAN ABX PER ID O2 LASIX INHALED BRONCHODILATORS NORMAL TRANSFUSION THRESHOLD MONITOR H+H MONITOR LYTES,RENAL FUNCTION SLEEP SCREEN DR MANN
--- NOTE | 2018-05-07 11:45 | PN ---
Progress Note (short form) - Note Progress Note: Renal follow up for HORACE Pt seen and examined at the bedside no acute complaints no sob, cp, abd pain making urine Vital Signs Temperature 98.7 F 05/07/18 10:00 Pulse Rate 73 05/07/18 10:00 Respiratory Rate 20 05/07/18 10:00 Blood Pressure 136/68 05/07/18 10:00 O2 Sat by Pulse Oximetry (%) 96 05/07/18 08:21 Intake & Output 05/04/18 05/05/18 05/06/18 05/07/18 23:59 23:59 23:59 23:59 Intake Total 120 770 150 Balance 120 770 150 Weight 110 kg 109.769 kg 113.171 kg 249 kg NAD RRR, no M/R CTA, dec bs soft, obese NT/ND no edema in LE no bladder distension CBC, BMP 05/07/18 06:30 05/07/18 06:30 Current Medications Albuterol/Ipratropium (Duoneb -) 1 amp NEB RQID [facility] Last Admin: 05/07/18 11:15 Dose: Not Given Atorvastatin Calcium (Lipitor -) 40 mg PO HS [facility] Last Admin: 05/06/18 21:44 Dose: 40 mg Heparin Sodium (Porcine) (Heparin -) 5,000 unit SQ BID [facility] Last Admin: 05/07/18 09:03 Dose: 5,000 unit Aztreonam 2 gm/ Dextrose 100 mls @ 100 mls/hr IVPB Q12H [facility]; Protocol Last Admin: 05/07/18 00:35 Dose: 100 mls/hr Insulin Aspart (Novolog Mix 70/30 Vial) 35 units SQ BIDAC [facility] Last Admin: 05/07/18 06:41 Dose: Not Given Insulin Aspart (Novolog Vial Sliding Scale -) 1 vial SQ Q4HPO [facility]; Protocol Last Admin: 05/07/18 09:08 Dose: Not Given Insulin Detemir (Levemir Vial) 50 units SQ AM [facility] Last Admin: 05/07/18 06:41 Dose: Not Given Metoclopramide HCl (Reglan Injection -) 10 mg IVPUSH Q6H PRN PRN Reason: NAUSEA AND/OR VOMITING Last Admin: 05/05/18 23:28 Dose: 10 mg Mometasone Furoate (Asmanex 220mcg -) 2 puff IH DAILY [facility] Last Admin: 05/07/18 09:02 Dose: 2 puff Pantoprazole Sodium (Protonix -) 20 mg PO HS [facility] Last Admin: 05/06/18 21:44 Dose: 20 mg Polyethylene Glycol (Miralax (For Daily Use) -) 17 gm PO DAILY PRN PRN Reason: CONSTIPATION Ranitidine HCl (Zantac -) 150 mg PO DAILY [facility] Last Admin: 05/07/18 09:04 Dose: 150 mg 67 year old woman with hx of Hypertension, CAD, DM, Anemia who presented with sob and cough and admitted for suspected cystitis with HORACE. #HORACE likely multifactoral with possible Renal hypoprofusion/ATN from contrast +/ - NSAIDs vs. sepsis but will also need to r/o obstruction #SOB #Hyponatremia in setting of renal dysfunction #Cystitis #Anemia #DM #CAD s/p recent PCI Renal function now improved to near baseline FeNa is 0.43% indicating preserved tubular function Urine Eosinophils pending US of Kidney/Bladder w/o obstruction Renal function improved s/p PRBC transfusion Trend renal function and electrolytes oral intake as tolerated Thank you Alvin Castro DO
[2018-05-07 12:42] VITALS: BMI 52.0
--- NOTE | 2018-05-07 13:48 | PN ---
Progress Note (short form) - Note Progress Note: no fevers feels well day #4 antiibotics Vital Signs Period Temp Pulse Resp BP Sys/Lee Pulse Ox Last 24 Hr 97.8 F-98.7 F 70-75 20-20 110-146/37-74 96-96 cor-rrr lungs clear abd softnt ext no edema CBC, BMP 05/07/18 06:30 05/07/18 06:30 Microbiology 05/05/18 02:00 Blood - Peripheral Venous Blood Culture - Preliminary NO GROWTH OBTAINED AFTER 48 HOURS, INCUBATION TO CONTINUE FOR 3 DAYS. 05/05/18 02:00 Blood - Peripheral Venous Blood Culture - Preliminary NO GROWTH OBTAINED AFTER 48 HOURS, INCUBATION TO CONTINUE FOR 3 DAYS. 05/03/18 23:15 Blood - Peripheral Venous Blood Culture - Final Escherichia Coli 05/04/18 00:50 Urine - Urine - Catheterized Urine Culture - Final Escherichia Coli 05/03/18 23:00 Blood - Peripheral Venous Blood Culture - Final Escherichia Coli sonogram kidneys no obstruction a/p overall improved day #4 azactam for ecoli bacteremia due to UTI abnl lfts- to repeat check sonogram if stable and ready for po antiibioitics can switch to po levaquin 500 mg dailyto complete total 10 days d/w dr iyer Problem List - Problems (1) Sepsis Code(s): A41.9 - SEPSIS, UNSPECIFIED ORGANISM (2) UTI (urinary tract infection) Code(s): N39.0 - URINARY TRACT INFECTION, SITE NOT SPECIFIED (3) HORACE (acute kidney injury) Code(s): N17.9 - ACUTE KIDNEY FAILURE, UNSPECIFIED (4) Penicillin allergy Code(s): Z88.0 - ALLERGY STATUS TO PENICILLIN
--- NOTE | 2018-05-07 13:51 | PN ---
Progress Note, Physician Chief Complaint: patient weakness is better h/h improved after trnasfusion off lasix bc of HORACE lft trending up will get liver sono - Current Medication List Current Medications: Active Medications Albuterol/Ipratropium (Duoneb -) 1 amp NEB RQID [facility] Last Admin: 05/07/18 11:15 Dose: Not Given Atorvastatin Calcium (Lipitor -) 40 mg PO HS [facility] Last Admin: 05/06/18 21:44 Dose: 40 mg Heparin Sodium (Porcine) (Heparin -) 5,000 unit SQ BID [facility] Last Admin: 05/07/18 09:03 Dose: 5,000 unit Aztreonam 2 gm/ Dextrose 100 mls @ 100 mls/hr IVPB Q12H [facility]; Protocol Last Admin: 05/07/18 12:09 Dose: 100 mls/hr Insulin Aspart (Novolog Mix 70/30 Vial) 35 units SQ BIDAC [facility] Last Admin: 05/07/18 06:41 Dose: Not Given Insulin Aspart (Novolog Vial Sliding Scale -) 1 vial SQ Q4HPO [facility]; Protocol Last Admin: 05/07/18 09:08 Dose: Not Given Insulin Detemir (Levemir Vial) 50 units SQ AM [facility] Last Admin: 05/07/18 06:41 Dose: Not Given Metoclopramide HCl (Reglan Injection -) 10 mg IVPUSH Q6H PRN PRN Reason: NAUSEA AND/OR VOMITING Last Admin: 05/05/18 23:28 Dose: 10 mg Mometasone Furoate (Asmanex 220mcg -) 2 puff IH DAILY [facility] Last Admin: 05/07/18 09:02 Dose: 2 puff Pantoprazole Sodium (Protonix -) 20 mg PO HS [facility] Last Admin: 05/06/18 21:44 Dose: 20 mg Polyethylene Glycol (Miralax (For Daily Use) -) 17 gm PO DAILY PRN PRN Reason: CONSTIPATION Ranitidine HCl (Zantac -) 150 mg PO DAILY [facility] Last Admin: 05/07/18 09:04 Dose: 150 mg - Objective Vital Signs: Vital Signs Temperature 98.7 F 05/07/18 10:00 Pulse Rate 73 05/07/18 10:00 Respiratory Rate 20 05/07/18 10:00 Blood Pressure 136/68 05/07/18 10:00 O2 Sat by Pulse Oximetry (%) 96 05/07/18 08:21 Constitutional: Yes: Calm Cardiovascular: Yes: Regular Rate and Rhythm, S1, S2 Respiratory: Yes: Diminished Gastrointestinal: Yes: Normal Bowel Sounds, Soft Neurological: Yes: Alert, Oriented Labs: CBC, BMP 05/07/18 06:30 05/07/18 06:30 INR, PTT INR 1.23 (0.83-1.09) H 05/03/18 22:00 Problem List - Problems (1) Acute exacerbation of CHF (congestive heart failure) Assessment/Plan: telemetry lasix iv daily stopped bc of increase renal function monitor sodium and renal function trend bnp cozaar Code(s): I50.9 - HEART FAILURE, UNSPECIFIED Qualifiers: Qualified Code(s): I50.9 - Heart failure, unspecified (2) UTI (urinary tract infection) Assessment/Plan: aztrenom Microbiology 05/04/18 00:50 Urine - Urine - Catheterized Urine Culture - Final Escherichia Coli day 4 of aztreonam today Code(s): N39.0 - URINARY TRACT INFECTION, SITE NOT SPECIFIED (3) Sepsis Assessment/Plan: cultures pending repeat lactic acid now normal wbc 11.3 now normal no fever on aztreonam Code(s): A41.9 - SEPSIS, UNSPECIFIED ORGANISM (4) Anemia Assessment/Plan: iron panel noted iron saturation is very low 6 sobia order venbofer as well Code(s): D64.9 - ANEMIA, UNSPECIFIED Qualifiers: (5) Diabetes mellitus with hyperglycemia Assessment/Plan: bgm sliding scale [id number] 11.6 uncontrolled levemir 50 units novolog 35 untis bid endocrine eval noted Code(s): E11.65 - TYPE 2 DIABETES MELLITUS WITH HYPERGLYCEMIA
[2018-05-07] MEDS ORDERED: IRON SUCROSE INJECTION 200 MG in SODIUM CHLORIDE 90 ML IVPB ONE (15:00)
--- NOTE | 2018-05-07 15:21 | PN ---
Progress Note, Physician Chief Complaint: No dyspnea Feels weak. History of Present Illness: The patient is a 67-year-old morbidly obese female a history of diabetes, hypertension, hyperlipidemia, asthma, coronary artery disease and myocardial infarction, status post stenting of the mid LAD on 05/02/2017, now admitted with fever, dysuria, cough. The patient denies chest pains. She is in no apparent distress. The patient reports no chest pains. Troponins and creatinine are elevated. Mild acute on chronic diastolic heart failure. - Current Medication List Current Medications: Active Medications Albuterol/Ipratropium (Duoneb -) 1 amp NEB RQID [facility] Last Admin: 05/07/18 11:15 Dose: Not Given Atorvastatin Calcium (Lipitor -) 40 mg PO HS [facility] Last Admin: 05/06/18 21:44 Dose: 40 mg Heparin Sodium (Porcine) (Heparin -) 5,000 unit SQ BID [facility] Last Admin: 05/07/18 09:03 Dose: 5,000 unit Aztreonam 2 gm/ Dextrose 100 mls @ 100 mls/hr IVPB Q12H [facility]; Protocol Last Admin: 05/07/18 12:09 Dose: 100 mls/hr Iron Sucrose 200 mg/ Sodium (Chloride) 100 mls @ 100 mls/hr IVPB ONCE ONE Stop: 05/07/18 15:59 Insulin Aspart (Novolog Mix 70/30 Vial) 35 units SQ BIDAC [facility] Last Admin: 05/07/18 06:41 Dose: Not Given Insulin Aspart (Novolog Vial Sliding Scale -) 1 vial SQ Q4HPO [facility]; Protocol Last Admin: 05/07/18 09:08 Dose: Not Given Insulin Detemir (Levemir Vial) 50 units SQ AM [facility] Last Admin: 05/07/18 06:41 Dose: Not Given Metoclopramide HCl (Reglan Injection -) 10 mg IVPUSH Q6H PRN PRN Reason: NAUSEA AND/OR VOMITING Last Admin: 05/05/18 23:28 Dose: 10 mg Mometasone Furoate (Asmanex 220mcg -) 2 puff IH DAILY [facility] Last Admin: 05/07/18 09:02 Dose: 2 puff Pantoprazole Sodium (Protonix -) 20 mg PO HS [facility] Last Admin: 05/06/18 21:44 Dose: 20 mg Polyethylene Glycol (Miralax (For Daily Use) -) 17 gm PO DAILY PRN PRN Reason: CONSTIPATION Ranitidine HCl (Zantac -) 150 mg PO DAILY [facility] Last Admin: 05/07/18 09:04 Dose: 150 mg - Objective Vital Signs: Vital Signs Temperature 97.8 F 05/07/18 13:51 Pulse Rate 71 05/07/18 13:51 Respiratory Rate 18 05/07/18 13:51 Blood Pressure 149/60 05/07/18 13:51 O2 Sat by Pulse Oximetry (%) 96 05/07/18 08:21 Constitutional: Yes: Well Nourished, No Distress Eyes: Yes: Conjunctiva Clear, EOM Intact HENT: Yes: Atraumatic, Normocephalic Neck: Yes: Supple, Trachea Midline Cardiovascular: Yes: Regular Rate and Rhythm Respiratory: Yes: Regular, CTA Bilaterally Gastrointestinal: Yes: Normal Bowel Sounds Extremities: Yes: WNL Edema: No Labs: CBC, BMP 05/07/18 06:30 05/07/18 06:30 INR, PTT INR 1.23 (0.83-1.09) H 05/03/18 22:00 Problem List - Problems (1) Acute exacerbation of CHF (congestive heart failure) Code(s): I50.9 - HEART FAILURE, UNSPECIFIED Qualifiers: Heart failure type: unspecified Qualified Code(s): I50.9 - Heart failure, unspecified Assessment/Plan The patient is a 67-year-old morbidly obese female, we've a history of diabetes , hypertension, hyperlipidemia, asthma, coronary artery disease and myocardial infarction, status post stenting of the mid LAD on 05/02/2017, now admitted with fever, dysuria, cough. The patient denies chest pains. She is in no apparent distress. Troponins are elevated. Mild acute on chronic diastolic heart failure improved with diuresis. CAD--Continue Plavix. CHF--Improved on lasix IV. Lasix was stopped. Continue antibiotics for UTI. Watch hemoglobin and transfuse accordingly. No need for further cardiac workup nor testing at this point. Will see as needed.
--- NOTE | 2018-05-07 18:00 | PN ---
Progress Note, Physician History of Present Illness: Patient examined and case discussed with Dr. Alvarado GI FOLLOW UP NOTE Patient states that LLQ pain has improved. States her LLQ pain is accompanied with nausea. Complain of constipation for 5 days. Denies rectal bleeding, vomiting, blood in stool. Abdominal xray show retained stool compatible with constipation, a gross obstruction or fecal impaction is not seen. - Current Medication List Current Medications: Active Medications Albuterol/Ipratropium (Duoneb -) 1 amp NEB RQID [facility] Last Admin: 05/07/18 15:58 Dose: Not Given Atorvastatin Calcium (Lipitor -) 40 mg PO HS [facility] Last Admin: 05/06/18 21:44 Dose: 40 mg Heparin Sodium (Porcine) (Heparin -) 5,000 unit SQ BID [facility] Last Admin: 05/07/18 09:03 Dose: 5,000 unit Aztreonam 2 gm/ Dextrose 100 mls @ 100 mls/hr IVPB Q12H [facility]; Protocol Last Admin: 05/07/18 12:09 Dose: 100 mls/hr Insulin Aspart (Novolog Mix 70/30 Vial) 35 units SQ BIDAC [facility] Last Admin: 05/07/18 17:19 Dose: 35 units Insulin Aspart (Novolog Vial Sliding Scale -) 1 vial SQ Q4HPO [facility]; Protocol Last Admin: 05/07/18 17:19 Dose: 9 unit Insulin Detemir (Levemir Vial) 50 units SQ AM [facility] Last Admin: 05/07/18 06:41 Dose: Not Given Metoclopramide HCl (Reglan Injection -) 10 mg IVPUSH Q6H PRN PRN Reason: NAUSEA AND/OR VOMITING Last Admin: 05/05/18 23:28 Dose: 10 mg Mometasone Furoate (Asmanex 220mcg -) 2 puff IH DAILY [facility] Last Admin: 05/07/18 09:02 Dose: 2 puff Pantoprazole Sodium (Protonix -) 20 mg PO HS [facility] Last Admin: 05/06/18 21:44 Dose: 20 mg Polyethylene Glycol (Miralax (For Daily Use) -) 17 gm PO DAILY PRN PRN Reason: CONSTIPATION Ranitidine HCl (Zantac -) 150 mg PO DAILY [facility] Last Admin: 05/07/18 09:04 Dose: 150 mg - Objective Vital Signs: Vital Signs Temperature 97.8 F 05/07/18 13:51 Pulse Rate 71 05/07/18 13:51 Respiratory Rate 18 05/07/18 13:51 Blood Pressure 149/60 05/07/18 13:51 O2 Sat by Pulse Oximetry (%) 96 05/07/18 08:21 Constitutional: Yes: No Distress, Calm, Obese Eyes: Yes: Conjunctiva Clear Neck: Yes: Supple Cardiovascular: Yes: Regular Rate and Rhythm Respiratory: Yes: Regular, Diminished Gastrointestinal: Yes: Normal Bowel Sounds, Soft, Abdomen, Obese, Other (non- tender). No: WNL, Ascites, Distention, Hematemesis, Hemorrhoids, Hepatomegaly, Hernia, Hyperactive Bowel Sounds, Hypoactive Bowel Sounds, Melena, Palpable Mass , Pulsatile Mass, Rectal Bleeding, Splenomegaly, Tenderness, Tenderness, Epigastrium, Tenderness, Rebound, Vomiting Neurological: Yes: Alert, Oriented Psychiatric: Yes: Alert, Oriented Labs: CBC, BMP 05/07/18 06:30 05/07/18 06:30 INR, PTT INR 1.23 (0.83-1.09) H 05/03/18 22:00 Laboratory Results - last 24 hr 05/06/18 05/07/18 05/07/18 21:40 06:30 06:30 WBC 9.7 RBC 3.38 L Hgb 10.0 L Hct 29.0 L MCV 85.7 MCH 29.5 MCHC 34.5 RDW 15.1 Plt Count 201 D MPV 11.0 Absolute Neuts (auto) 6.9 Neutrophils % 70.8 Lymphocytes % 14.8 D Monocytes % 11.3 H Eosinophils % 2.5 Basophils % 0.6 Nucleated RBC % 0 Sodium 138 Potassium 4.4 Chloride 103 Carbon Dioxide 29 Anion Gap 7 L BUN 40 H Creatinine 1.1 Creat Clearance w eGFR 49.39 POC Glucometer 150 Random Glucose 96 Calcium 8.8 Total Bilirubin 0.4 AST 44 H ALT 66 H Alkaline Phosphatase 150 H Creatine Kinase 76 Troponin I 0.27 H Total Protein 6.0 L Albumin 2.2 L 05/07/18 05/07/18 05/07/18 06:39 11:25 15:31 WBC RBC Hgb Hct MCV MCH MCHC RDW Plt Count MPV Absolute Neuts (auto) Neutrophils % Lymphocytes % Monocytes % Eosinophils % Basophils % Nucleated RBC % Sodium Potassium Chloride Carbon Dioxide Anion Gap BUN Creatinine Creat Clearance w eGFR POC Glucometer 84 243 262 Random Glucose Calcium Total Bilirubin AST ALT Alkaline Phosphatase Creatine Kinase Troponin I Total Protein Albumin 05/07/18 17:17 WBC RBC Hgb Hct MCV MCH MCHC RDW Plt Count MPV Absolute Neuts (auto) Neutrophils % Lymphocytes % Monocytes % Eosinophils % Basophils % Nucleated RBC % Sodium Potassium Chloride Carbon Dioxide Anion Gap BUN Creatinine Creat Clearance w eGFR POC Glucometer 306 Random Glucose Calcium Total Bilirubin AST ALT Alkaline Phosphatase Creatine Kinase Troponin I Total Protein Albumin <Ranjana Hayes - Last Filed: 05/07/18 17:55> - Current Medication List Current Medications: Active Medications Albuterol/Ipratropium (Duoneb -) 1 amp NEB RQID [facility] Last Admin: 05/07/18 15:58 Dose: Not Given Atorvastatin Calcium (Lipitor -) 40 mg PO HS [facility] Last Admin: 05/06/18 21:44 Dose: 40 mg Heparin Sodium (Porcine) (Heparin -) 5,000 unit SQ BID [facility] Last Admin: 05/07/18 09:03 Dose: 5,000 unit Aztreonam 2 gm/ Dextrose 100 mls @ 100 mls/hr IVPB Q12H [facility]; Protocol Last Admin: 05/07/18 12:09 Dose: 100 mls/hr Insulin Aspart (Novolog Vial Sliding Scale -) 1 vial SQ Q4HPO [facility]; Protocol Last Admin: 05/07/18 17:19 Dose: 9 unit Insulin Aspart (Novolog Mix 70/30 Vial) 45 units SQ BIDAC [facility] Insulin Detemir (Levemir Vial) 50 units SQ AM [facility] Last Admin: 05/07/18 06:41 Dose: Not Given Metoclopramide HCl (Reglan Injection -) 10 mg IVPUSH Q6H PRN PRN Reason: NAUSEA AND/OR VOMITING Last Admin: 05/05/18 23:28 Dose: 10 mg Mometasone Furoate (Asmanex 220mcg -) 2 puff IH DAILY [facility] Last Admin: 05/07/18 09:02 Dose: 2 puff Pantoprazole Sodium (Protonix -) 20 mg PO HS [facility] Last Admin: 05/06/18 21:44 Dose: 20 mg Polyethylene Glycol (Miralax (For Daily Use) -) 17 gm PO DAILY [facility] Ranitidine HCl (Zantac -) 150 mg PO DAILY [facility] Last Admin: 05/07/18 09:04 Dose: 150 mg - Objective Vital Signs: Vital Signs Temperature 97.9 F 05/07/18 17:00 Pulse Rate 75 05/07/18 17:00 Respiratory Rate 20 05/07/18 17:00 Blood Pressure 137/51 L 05/07/18 17:00 O2 Sat by Pulse Oximetry (%) 96 05/07/18 08:21 Labs: CBC, BMP 05/07/18 06:30 05/07/18 06:30 INR, PTT INR 1.23 (0.83-1.09) H 05/03/18 22:00 <Thai Alvarado - Last Filed: 05/07/18 20:27> Problem List - Problems (1) Anemia Assessment/Plan: -H/H currently stable at 01/22 -will need CT enterography when renal function improves -made aware to follow up as outpatient for further GI workup and possible video capsule endoscopy Code(s): D64.9 - ANEMIA, UNSPECIFIED (2) Constipation Assessment/Plan: -continue with Miralax 17g Code(s): K59.00 - CONSTIPATION, UNSPECIFIED <Ranjana Hayes - Last Filed: 05/07/18 17:55>
--- NOTE | 2018-05-07 20:32 | PN ---
GI Progress Note Subjective: patient with history of obscure GI bleeding, s/p EGD and colonoscopy, there were no bleeding noted. According to his son Micky while oversease she was off Plavix and she stopped bleeding. SHe is getting frustrated becaue of recurrent GI bleeding. SHe has coronary stents inserted last August and [place] - Objective Vital Signs: Vital Signs Temperature 97.9 F 05/07/18 17:00 Pulse Rate 75 05/07/18 17:00 Respiratory Rate 20 05/07/18 17:00 Blood Pressure 137/51 L 05/07/18 17:00 O2 Sat by Pulse Oximetry (%) 96 05/07/18 08:21 Constitutional: Obese Eyes: Yes: Conjunctiva Clear HENT: Yes: Atraumatic Neck: Yes: Supple Cardiovascular: Yes: Regular Rate and Rhythm Respiratory: Yes: CTA Bilaterally ...Palpate: Yes: Soft. No: Firm/Rigid, Guarding, Hepatomegaly, Mass, Pulsatile Mass, Splenomegaly, Tenderness Labs: CBC, BMP 05/07/18 06:30 05/07/18 06:30 INR, PTT INR 1.23 (0.83-1.09) H 05/03/18 22:00 Problem List - Problems (1) Anemia Assessment/Plan: secondary to obscure GI bleeind R> Ferrous sulate 325 mg tid Vit C 500mg daily Folic acid 1 mg daily cardiology inmput Code(s): D64.9 - ANEMIA, UNSPECIFIED
[2018-05-07] MEDS: ATORVASTATIN CA 40 MG TABLET (FP) PO SCH (21:26)
[2018-05-07] MEDS: PANTOPRAZOLE 20 MG TABLET (FP) PO SCH (21:26)
[2018-05-08] MEDS ORDERED: PT OWN MED DRAWER 7, Y5N ONE ×3 (00:17→22:04)
[2018-05-08] MEDS: AZTREONAM 2 GM in DEXTROSE 5%-WATER 100 ML IVPB SCH ×3 (00:27→22:47)
[2018-05-08] MEDS: INSULIN SLIDING SCALE (NOVOLOG) 1 VIAL SQ SCH ×6 (01:54→22:18)
[2018-05-08 06:20] LABS: BASO % 0.5 % (0-2.0); EOS % 2.4 % (0-4.5); HEMATOCRIT 29.1 % (32.4-45.2); HEMOGLOBIN 9.9 GM/dL (10.7-15.3); LYMPH % 14.5 % (8-40); MCH 29.5 pg (25.7-33.7); MEAN CELL VOLUME 86.8 fl (80-96); MEAN PLT VOLUME 10.5 fl (7.5-11.1); MONO % 12.4 % (3.8-10.2); NEUT % 70.2 % (42.8-82.8); PLATELET COUNT 200 K/MM3 (134-434); RBC 3.35 M/mm3 (3.60-5.2); RDW 15.3 % (11.6-15.6); WHITE BLOOD COUNT 9.5 K/mm3 (4.0-10.0)
[2018-05-08] MEDS: INSULIN (NOVOLOG MIX 70/30) 100 UNITS/ML MDV SQ SCH ×2 (06:32→17:32)
[2018-05-08] MEDS: INSULIN (LEVEMIR) 100 UNITS/ML UNITS SQ SCH ×2 (06:32→22:17)
[2018-05-08 07:25] LABS: ALK PHOS 173 U/L (45-117); ANION GAP 5 MMOL/L (8-16); BILIRUBIN,TOTAL 0.4 mg/dL (0.2-1); BLOOD UREA NITROGEN 33 mg/dL (7-18); CHLORIDE 106 mmol/L (98-107); CO2 29 mmol/L (21-32); GLUCOSE,RANDOM 107 mg/dL (74-106); POTASSIUM 4.6 mmol/L (3.5-5.1); SGOT/AST 47 U/L (15-37); SGPT/ALT 68 U/L (13-61); SODIUM 140 mmol/L (136-145); TOT PROT 5.8 g/dl (6.4-8.2)
[2018-05-08] MEDS: ALBUTEROL SO4 2.5/IPRATROPIUM 0.5 INH SOL 3 ML VIAL.NEB. NEB SCH ×4 (07:26→20:39)
--- NOTE | 2018-05-08 09:45 | PN ---
Progress Note, Physician - Current Medication List Current Medications: Active Medications Albuterol/Ipratropium (Duoneb -) 1 amp NEB RQID [facility] Last Admin: 05/08/18 07:26 Dose: Not Given Atorvastatin Calcium (Lipitor -) 40 mg PO HS [facility] Last Admin: 05/07/18 21:26 Dose: 40 mg Heparin Sodium (Porcine) (Heparin -) 5,000 unit SQ BID [facility] Last Admin: 05/07/18 21:26 Dose: 5,000 unit Aztreonam 2 gm/ Dextrose 100 mls @ 100 mls/hr IVPB Q12H [facility]; Protocol Last Admin: 05/08/18 00:27 Dose: 100 mls/hr Insulin Aspart (Novolog Vial Sliding Scale -) 1 vial SQ Q4HPO [facility]; Protocol Last Admin: 05/08/18 06:31 Dose: Not Given Insulin Aspart (Novolog Mix 70/30 Vial) 45 units SQ BIDAC [facility] Last Admin: 05/08/18 06:32 Dose: Not Given Insulin Detemir (Levemir Vial) 50 units SQ AM [facility] Last Admin: 05/08/18 06:32 Dose: Not Given Metoclopramide HCl (Reglan Injection -) 10 mg IVPUSH Q6H PRN PRN Reason: NAUSEA AND/OR VOMITING Last Admin: 05/05/18 23:28 Dose: 10 mg Mometasone Furoate (Asmanex 220mcg -) 2 puff IH DAILY [facility] Last Admin: 05/07/18 09:02 Dose: 2 puff Pantoprazole Sodium (Protonix -) 20 mg PO HS [facility] Last Admin: 05/07/18 21:26 Dose: 20 mg Polyethylene Glycol (Miralax (For Daily Use) -) 17 gm PO DAILY [facility] Ranitidine HCl (Zantac -) 150 mg PO DAILY [facility] Last Admin: 05/07/18 09:04 Dose: 150 mg - Objective Vital Signs: Vital Signs Temperature 98.0 F 05/08/18 05:00 Pulse Rate 75 05/08/18 05:00 Respiratory Rate 20 05/08/18 05:00 Blood Pressure 133/74 05/08/18 05:00 O2 Sat by Pulse Oximetry (%) 97 05/07/18 21:00 Cardiovascular: Yes: S1, S2 Respiratory: Yes: Rhonchi Gastrointestinal: Yes: Normal Bowel Sounds, Soft Labs: CBC, BMP 05/08/18 06:00 05/08/18 06:00 INR, PTT INR 1.23 (0.83-1.09) H 05/03/18 22:00 Assessment/Plan - Problems (1) Acute exacerbation of CHF (congestive heart failure) Assessment/Plan: telemetry hold lasix iv daily--rising cr monitor sodium and renal function trend bnp cozaar Code(s): I50.9 - HEART FAILURE, UNSPECIFIED Qualifiers: Heart failure type: unspecified Qualified Code(s): I50.9 - Heart failure, unspecified (2) UTI (urinary tract infection) Assessment/Plan: aztreonam Code(s): N39.0 - URINARY TRACT INFECTION, SITE NOT SPECIFIED (3) Sepsis Assessment/Plan: cultures Microbiology 05/03/18 23:15 Blood - Peripheral Venous Blood Culture - Final Escherichia Coli 05/04/18 00:50 Urine - Urine - Catheterized Urine Culture - Final Escherichia Coli 05/03/18 23:00 Blood - Peripheral Venous Blood Culture - Final Escherichia Coli 05/05/18 02:00 Blood - Peripheral Venous Blood Culture - Preliminary NO GROWTH OBTAINED AFTER 24 HOURS, INCUBATION TO CONTINUE FOR 4 DAYS. 05/05/18 02:00 Blood - Peripheral Venous Blood Culture - Preliminary NO GROWTH OBTAINED AFTER 24 HOURS, INCUBATION TO CONTINUE FOR 4 DAYS. broad spectrum antibiotics Code(s): A41.9 - SEPSIS, UNSPECIFIED ORGANISM (4) Anemia Assessment/Plan: iron panel transfused prbc gi consult noted ppi dc plavix Code(s): D64.9 - ANEMIA, UNSPECIFIED Qualifiers: (5) Diabetes mellitus with hyperglycemia Assessment/Plan: bgm sliding scale [id number] levemir endocrine eval Code(s): E11.65 - TYPE 2 DIABETES MELLITUS WITH HYPERGLYCEMIA (6) Copd Assessment/Plan: NEBS PULM
[2018-05-08] MEDS ORDERED: POLYETHYLENE GLYCOL 3350 119 GM BTL PO SCH (10:00)
[2018-05-08] MEDS: HEPARIN NA (PORCINE) 5,000 UNITS/ML 1ML VIAL SQ SCH ×2 (10:22→22:17)
[2018-05-08] MEDS: MOMETASONE FUROATE 220 MCG/IH INHALER IH SCH (10:25)
[2018-05-08 10:30] LABS: ARTERIAL BLD GAS O2 SATURATION 97.3 % (90-98.9); ARTERIAL BLOOD GAS BASE EXCESS 4.2 meq/l (-2-2); ARTERIAL BLOOD GAS PCO2 39.5 mmHg (35-45); ARTERIAL BLOOD GAS PO2 93.5 mmHg (80-100); ARTERIAL BLOOD GAS pH 7.46 (7.35-7.45)
[2018-05-08 10:30] LABS: ANISOCYTOSIS 1+; MACROCYTOSIS 0; PLATELET ESTIMATE NORMAL
[2018-05-08 10:32] LABS: ALLENS TEST POSITIVE
--- NOTE | 2018-05-08 11:19 | PN ---
Progress Note (short form) - Note Progress Note: Renal follow up for HORACE Pt seen and examined at the bedside no acute complaints reports feeling hungry denies any pain, sob, fever, chills Vital Signs Temperature 98.0 F 05/08/18 05:00 Pulse Rate 75 05/08/18 05:00 Respiratory Rate 20 05/08/18 05:00 Blood Pressure 133/74 05/08/18 05:00 O2 Sat by Pulse Oximetry (%) 97 05/07/18 21:00 Intake & Output 05/05/18 05/06/18 05/07/18 05/08/18 23:59 23:59 23:59 23:59 Intake Total 379 915 1692 0 Balance 785 228 5689 0 Weight 109.769 kg 113.171 kg 249 kg 112.491 kg NAD RRR, no M/R CTA, dec bs soft, obese NT/ND no edema in LE no bladder distension CBC, BMP 05/08/18 06:00 05/08/18 06:00 Current Medications Albuterol/Ipratropium (Duoneb -) 1 amp NEB RQID [facility] Last Admin: 05/08/18 07:26 Dose: Not Given Atorvastatin Calcium (Lipitor -) 40 mg PO HS [facility] Last Admin: 05/07/18 21:26 Dose: 40 mg Heparin Sodium (Porcine) (Heparin -) 5,000 unit SQ BID [facility] Last Admin: 05/08/18 10:22 Dose: Not Given Aztreonam 2 gm/ Dextrose 100 mls @ 100 mls/hr IVPB Q12H [facility]; Protocol Last Admin: 05/08/18 00:27 Dose: 100 mls/hr Insulin Aspart (Novolog Vial Sliding Scale -) 1 vial SQ Q4HPO [facility]; Protocol Last Admin: 05/08/18 10:34 Dose: Not Given Insulin Aspart (Novolog Mix 70/30 Vial) 45 units SQ BIDAC [facility] Last Admin: 05/08/18 06:32 Dose: Not Given Insulin Detemir (Levemir Vial) 50 units SQ AM [facility] Last Admin: 05/08/18 06:32 Dose: Not Given Metoclopramide HCl (Reglan Injection -) 10 mg IVPUSH Q6H PRN PRN Reason: NAUSEA AND/OR VOMITING Last Admin: 05/05/18 23:28 Dose: 10 mg Mometasone Furoate (Asmanex 220mcg -) 2 puff IH DAILY [facility] Last Admin: 05/08/18 10:25 Dose: Not Given Pantoprazole Sodium (Protonix -) 20 mg PO HS [facility] Last Admin: 05/07/18 21:26 Dose: 20 mg Polyethylene Glycol (Miralax (For Daily Use) -) 17 gm PO DAILY [facility] Ranitidine HCl (Zantac -) 150 mg PO DAILY [facility] Last Admin: 05/07/18 09:04 Dose: 150 mg 67 year old woman with hx of Hypertension, CAD, DM, Anemia who presented with sob and cough and admitted for suspected cystitis with HORACE. #HORACE likely multifactoral with possible Renal hypoprofusion/ATN from contrast +/ - NSAIDs vs. sepsis but will also need to r/o obstruction #SOB #Hyponatremia in setting of renal dysfunction #Cystitis #Anemia #DM #CAD s/p recent PCI Renal function improved ans table US of Kidney/Bladder w/o obstruction Continue antibiotics as per primary team Trend renal function and electrolytes Thank you Alvin Castro DO
[2018-05-08] MEDS: RANITIDINE HCL 150 MG TABLET (FP) PO SCH (12:39)
--- NOTE | 2018-05-08 12:54 | PN ---
Progress Note, Physician History of Present Illness: pulmonary alert,no distress,-sob,-cough - Current Medication List Current Medications: Active Medications Albuterol/Ipratropium (Duoneb -) 1 amp NEB RQID [facility] Last Admin: 05/08/18 07:26 Dose: Not Given Atorvastatin Calcium (Lipitor -) 40 mg PO HS [facility] Last Admin: 05/07/18 21:26 Dose: 40 mg Heparin Sodium (Porcine) (Heparin -) 5,000 unit SQ BID [facility] Last Admin: 05/08/18 10:22 Dose: Not Given Aztreonam 2 gm/ Dextrose 100 mls @ 100 mls/hr IVPB Q12H [facility]; Protocol Last Admin: 05/08/18 12:08 Dose: 100 mls/hr Insulin Aspart (Novolog Vial Sliding Scale -) 1 vial SQ Q4HPO [facility]; Protocol Last Admin: 05/08/18 10:34 Dose: Not Given Insulin Aspart (Novolog Mix 70/30 Vial) 45 units SQ BIDAC [facility] Last Admin: 05/08/18 06:32 Dose: Not Given Insulin Detemir (Levemir Vial) 50 units SQ AM [facility] Last Admin: 05/08/18 06:32 Dose: Not Given Metoclopramide HCl (Reglan Injection -) 10 mg IVPUSH Q6H PRN PRN Reason: NAUSEA AND/OR VOMITING Last Admin: 05/05/18 23:28 Dose: 10 mg Mometasone Furoate (Asmanex 220mcg -) 2 puff IH DAILY [facility] Last Admin: 05/08/18 10:25 Dose: Not Given Pantoprazole Sodium (Protonix -) 20 mg PO HS [facility] Last Admin: 05/07/18 21:26 Dose: 20 mg Polyethylene Glycol (Miralax (For Daily Use) -) 17 gm PO DAILY [facility] Last Admin: 05/08/18 12:39 Dose: Not Given Ranitidine HCl (Zantac -) 150 mg PO DAILY [facility] Last Admin: 05/08/18 12:39 Dose: 150 mg - Objective Vital Signs: Vital Signs Temperature 98.0 F 05/08/18 05:00 Pulse Rate 75 05/08/18 05:00 Respiratory Rate 20 05/08/18 05:00 Blood Pressure 133/74 05/08/18 05:00 O2 Sat by Pulse Oximetry (%) 97 05/07/18 21:00 Constitutional: Yes: Calm, Obese Eyes: Yes: WNL HENT: Yes: WNL Neck: Yes: WNL Cardiovascular: Yes: Regular Rate and Rhythm, S1, S2 Respiratory: Yes: Diminished Gastrointestinal: Yes: Normal Bowel Sounds, Soft Extremities: Yes: WNL Edema: Yes Labs: CBC, BMP 05/08/18 06:00 05/08/18 06:00 INR, PTT INR 1.23 (0.83-1.09) H 05/03/18 22:00 Assessment/Plan IMP DYSPNEA IMPROVED ACUTE ON CHRONIC CHF IMPROVING SYMPTOMATIC ANEMIA IMPROVED S/P TRANSFUSION GRAM NEGATIVE BACTEREMIA UROSEPSIS ASHD S/P NE,S/P STENT ACUTE ON CHRONIC KIDNEY INJURY OSAS SLEEP SCREEN AHI 31 C/W SEVERE OSAS ASTHMA HTN HLD PLAN ABX PER ID O2 INHALED BRONCHODILATORS NORMAL TRANSFUSION THRESHOLD MONITOR H+H MONITOR LYTES,RENAL FUNCTION FORMAL SLEEP STUDIES OUTPATIENT DR MANN
--- NOTE | 2018-05-08 15:04 | PN ---
Progress Note, Physician History of Present Illness: Patient examined and case discussed with Dr. Alvarado GI FOLLOW UP NOTE Patient states that LLQ pain has improved. States her LLQ pain is accompanied with nausea. Continues to complain of constipation for 5 days despite miralax daily ordered.Complains of nausea and feeling weak. Denies rectal bleeding, vomiting, blood in stool. . - Current Medication List Current Medications: Active Medications Albuterol/Ipratropium (Duoneb -) 1 amp NEB RQID [facility] Last Admin: 05/08/18 13:10 Dose: Not Given Atorvastatin Calcium (Lipitor -) 40 mg PO HS [facility] Last Admin: 05/07/18 21:26 Dose: 40 mg Heparin Sodium (Porcine) (Heparin -) 5,000 unit SQ BID [facility] Last Admin: 05/08/18 10:22 Dose: Not Given Aztreonam 2 gm/ Dextrose 100 mls @ 100 mls/hr IVPB Q12H [facility]; Protocol Last Admin: 05/08/18 12:08 Dose: 100 mls/hr Insulin Aspart (Novolog Vial Sliding Scale -) 1 vial SQ Q4HPO [facility]; Protocol Last Admin: 05/08/18 14:51 Dose: 9 unit Insulin Aspart (Novolog Mix 70/30 Vial) 45 units SQ BIDAC [facility] Last Admin: 05/08/18 06:32 Dose: Not Given Insulin Detemir (Levemir Vial) 50 units SQ AM [facility] Last Admin: 05/08/18 06:32 Dose: Not Given Metoclopramide HCl (Reglan Injection -) 10 mg IVPUSH Q6H PRN PRN Reason: NAUSEA AND/OR VOMITING Last Admin: 05/05/18 23:28 Dose: 10 mg Mometasone Furoate (Asmanex 220mcg -) 2 puff IH DAILY [facility] Last Admin: 05/08/18 10:25 Dose: Not Given Pantoprazole Sodium (Protonix -) 20 mg PO HS [facility] Last Admin: 05/07/18 21:26 Dose: 20 mg Polyethylene Glycol (Miralax (For Daily Use) -) 17 gm PO BID [facility] Ranitidine HCl (Zantac -) 150 mg PO DAILY [facility] Last Admin: 05/08/18 12:39 Dose: 150 mg - Objective Vital Signs: Vital Signs Temperature 97.7 F 05/08/18 09:00 Pulse Rate 66 05/08/18 09:00 Respiratory Rate 20 05/08/18 09:00 Blood Pressure 172/66 H 05/08/18 09:00 O2 Sat by Pulse Oximetry (%) 99 05/08/18 09:00 Constitutional: Yes: No Distress, Obese Eyes: Yes: Conjunctiva Clear Cardiovascular: Yes: Regular Rate and Rhythm Respiratory: Yes: Rhonchi Gastrointestinal: Yes: Normal Bowel Sounds, Soft, Abdomen, Obese. No: WNL, Ascites, Distention, Hematemesis, Hemorrhoids, Hepatomegaly, Hernia, Hyperactive Bowel Sounds, Hypoactive Bowel Sounds, Melena, Palpable Mass, Pulsatile Mass, Rectal Bleeding, Splenomegaly, Tenderness, Tenderness, Epigastrium, Tenderness, Rebound, Vomiting, Other Neurological: Yes: Alert, Oriented Psychiatric: Yes: Alert, Oriented Labs: CBC, BMP 05/08/18 06:00 05/08/18 06:00 INR, PTT INR 1.23 (0.83-1.09) H 05/03/18 22:00 Laboratory Results - last 24 hr 05/03/18 05/07/18 05/07/18 23:15 15:31 17:17 WBC RBC Hgb Hct MCV MCH MCHC RDW Plt Count MPV Absolute Neuts (auto) Neutrophils % Neutrophils % (Manual) Band Neutrophils % Lymphocytes % Lymphocytes % (Manual) Monocytes % Monocytes % (Manual) Eosinophils % Eosinophils % (Manual) Basophils % Basophils % (Manual) Myelocytes % (Man) Promyelocytes % (Man) Blast Cells % (Manual) Nucleated RBC % Metamyelocytes Hypochromia Platelet Estimate Polychromasia Poikilocytosis Anisocytosis Microcytosis Macrocytosis Puncture Site ABG pH ABG pCO2 at Pt Temp ABG pO2 at Pt Temp ABG HCO3 ABG O2 Sat (Measured) ABG O2 Content ABG Base Excess Luis [place] Test O2 Delivery Device Oxygen Flow Rate Sodium Potassium Chloride Carbon Dioxide Anion Gap BUN Creatinine Creat Clearance w eGFR POC Glucometer 262 306 Random Glucose Calcium Total Bilirubin AST ALT Alkaline Phosphatase Total Protein Albumin Blood Type O POSITIVE Antibody Screen Positive Antibody Identification K Crossmatch See Detail 05/07/18 05/08/18 05/08/18 21:24 01:52 06:00 WBC 9.5 RBC 3.35 L Hgb 9.9 L Hct 29.1 L MCV 86.8 MCH 29.5 MCHC 34.0 RDW 15.3 Plt Count 200 MPV 10.5 Absolute Neuts (auto) 6.7 Neutrophils % 70.2 Neutrophils % (Manual) 73.8 Band Neutrophils % 0.0 Lymphocytes % 14.5 Lymphocytes % (Manual) 10.1 D Monocytes % 12.4 H Monocytes % (Manual) 10 D Eosinophils % 2.4 Eosinophils % (Manual) 1.0 Basophils % 0.5 Basophils % (Manual) 0.0 Myelocytes % (Man) 1 D Promyelocytes % (Man) 0 Blast Cells % (Manual) 0 Nucleated RBC % 0 Metamyelocytes 1 D Hypochromia 0 Platelet Estimate Normal Polychromasia 1+ Poikilocytosis 0 Anisocytosis 1+ Microcytosis 1+ Macrocytosis 0 Puncture Site ABG pH ABG pCO2 at Pt Temp ABG pO2 at Pt Temp ABG HCO3 ABG O2 Sat (Measured) ABG O2 Content ABG Base Excess Luis Carlos Test O2 Delivery Device Oxygen Flow Rate Sodium Potassium Chloride Carbon Dioxide Anion Gap BUN Creatinine Creat Clearance w eGFR POC Glucometer 251 104 Random Glucose Calcium Total Bilirubin AST ALT Alkaline Phosphatase Total Protein Albumin Blood Type Antibody Screen Antibody Identification Crossmatch 05/08/18 05/08/18 05/08/18 06:00 06:30 10:19 WBC RBC Hgb Hct MCV MCH MCHC RDW Plt Count MPV Absolute Neuts (auto) Neutrophils % Neutrophils % (Manual) Band Neutrophils % Lymphocytes % Lymphocytes % (Manual) Monocytes % Monocytes % (Manual) Eosinophils % Eosinophils % (Manual) Basophils % Basophils % (Manual) Myelocytes % (Man) Promyelocytes % (Man) Blast Cells % (Manual) Nucleated RBC % Metamyelocytes Hypochromia Platelet Estimate Polychromasia Poikilocytosis Anisocytosis Microcytosis Macrocytosis Puncture Site Right radial ABG pH 7.46 H ABG pCO2 at Pt Temp 39.5 ABG pO2 at Pt Temp 93.5 ABG HCO3 27.8 H ABG O2 Sat (Measured) 97.3 ABG O2 Content 13.6 L ABG Base Excess 4.2 H Luis Carlos Test Positive O2 Delivery Device Room air Oxygen Flow Rate 21% Sodium 140 Potassium 4.6 Chloride 106 Carbon Dioxide 29 Anion Gap 5 L BUN 33 H Creatinine 1.0 Creat Clearance w eGFR 55.14 POC Glucometer 122 Random Glucose 107 H Calcium 8.0 L Total Bilirubin 0.4 AST 47 H ALT 68 H Alkaline Phosphatase 173 H Total Protein 5.8 L Albumin 2.0 L Blood Type Antibody Screen Antibody Identification Crossmatch 05/08/18 05/08/18 10:33 14:49 WBC RBC Hgb Hct MCV MCH MCHC RDW Plt Count MPV Absolute Neuts (auto) Neutrophils % Neutrophils % (Manual) Band Neutrophils % Lymphocytes % Lymphocytes % (Manual) Monocytes % Monocytes % (Manual) Eosinophils % Eosinophils % (Manual) Basophils % Basophils % (Manual) Myelocytes % (Man) Promyelocytes % (Man) Blast Cells % (Manual) Nucleated RBC % Metamyelocytes Hypochromia Platelet Estimate Polychromasia Poikilocytosis Anisocytosis Microcytosis Macrocytosis Puncture Site ABG pH ABG pCO2 at Pt Temp ABG pO2 at Pt Temp ABG HCO3 ABG O2 Sat (Measured) ABG O2 Content ABG Base Excess Luis [place] Test O2 Delivery Device Oxygen Flow Rate Sodium Potassium Chloride Carbon Dioxide Anion Gap BUN Creatinine Creat Clearance w eGFR POC Glucometer 124 342 Random Glucose Calcium Total Bilirubin AST ALT Alkaline Phosphatase Total Protein Albumin Blood Type Antibody Screen Antibody Identification Crossmatch Problem List - Problems (1) Anemia Assessment/Plan: -H/H currently stable at 9.9/29.1 -will need CT enterography when renal function improves -made aware to follow up as outpatient for further GI workup and possible video capsule endoscopy Code(s): D64.9 - ANEMIA, UNSPECIFIED (2) Constipation Assessment/Plan: -change order to Miralax BID Code(s): K59.00 - CONSTIPATION, UNSPECIFIED
--- NOTE | 2018-05-08 16:29 | PN ---
Progress Note (short form) - Note Progress Note: no fevers feels well day #5 antiibotics Vital Signs Period Temp Pulse Resp BP Sys/Lee Pulse Ox Last 24 Hr 97.6 F-98.1 F 66-78 18-20 133-172/51-74 97-99 cor-rrr lungs clear abd soft,nt ext no edema sono liver pending sonogram kidneys no obstruction CBC, BMP 05/08/18 06:00 05/08/18 06:00 Microbiology 05/05/18 02:00 Blood - Peripheral Venous Blood Culture - Preliminary NO GROWTH OBTAINED AFTER 72 HOURS, INCUBATION TO CONTINUE FOR 2 DAYS. 05/05/18 02:00 Blood - Peripheral Venous Blood Culture - Preliminary NO GROWTH OBTAINED AFTER 72 HOURS, INCUBATION TO CONTINUE FOR 2 DAYS. 05/03/18 23:15 Blood - Peripheral Venous Blood Culture - Final Escherichia Coli 05/04/18 00:50 Urine - Urine - Catheterized Urine Culture - Final Escherichia Coli 05/03/18 23:00 Blood - Peripheral Venous Blood Culture - Final Escherichia Coli a/p overall improved day #5 azactam for ecoli bacteremia due to UTI abnl lfts- to repeat check sonogram if stable and ready for po antiibioitics can switch to po levaquin 500 mg dailyto complete total 10 days please call back if needed Problem List - Problems (1) Sepsis Code(s): A41.9 - SEPSIS, UNSPECIFIED ORGANISM (2) UTI (urinary tract infection) Code(s): N39.0 - URINARY TRACT INFECTION, SITE NOT SPECIFIED (3) HORACE (acute kidney injury) Code(s): N17.9 - ACUTE KIDNEY FAILURE, UNSPECIFIED (4) Penicillin allergy Code(s): Z88.0 - ALLERGY STATUS TO PENICILLIN
[2018-05-08] MEDS ORDERED: INSULIN SLIDING SCALE (NOVOLOG) 1 VIAL SQ SCH (20:59)
--- NOTE | 2018-05-08 21:05 | PN ---
Progress Note, Physician Chief Complaint: still high sugars cough - Current Medication List Current Medications: Active Medications Albuterol/Ipratropium (Duoneb -) 1 amp NEB RQID [facility] Last Admin: 05/08/18 20:39 Dose: Not Given Atorvastatin Calcium (Lipitor -) 40 mg PO HS [facility] Last Admin: 05/07/18 21:26 Dose: 40 mg Heparin Sodium (Porcine) (Heparin -) 5,000 unit SQ BID [facility] Last Admin: 05/08/18 10:22 Dose: Not Given Aztreonam 2 gm/ Dextrose 100 mls @ 100 mls/hr IVPB Q12H [facility]; Protocol Last Admin: 05/08/18 12:08 Dose: 100 mls/hr Insulin Aspart (Novolog Mix 70/30 Vial) 55 units SQ BIDAC [facility] Insulin Aspart (Novolog Vial Sliding Scale -) 1 vial SQ ACHS [facility]; Protocol Insulin Detemir (Levemir Vial) 50 units SQ BID [facility] Metoclopramide HCl (Reglan Injection -) 10 mg IVPUSH Q6H PRN PRN Reason: NAUSEA AND/OR VOMITING Last Admin: 05/05/18 23:28 Dose: 10 mg Mometasone Furoate (Asmanex 220mcg -) 2 puff IH DAILY [facility] Last Admin: 05/08/18 10:25 Dose: Not Given Pantoprazole Sodium (Protonix -) 20 mg PO HS [facility] Last Admin: 05/07/18 21:26 Dose: 20 mg Polyethylene Glycol (Miralax (For Daily Use) -) 17 gm PO BID [facility] Ranitidine HCl (Zantac -) 150 mg PO DAILY [facility] Last Admin: 05/08/18 12:39 Dose: 150 mg - Objective Vital Signs: Vital Signs Temperature 97.7 F 05/08/18 17:00 Pulse Rate 65 05/08/18 17:00 Respiratory Rate 20 05/08/18 17:00 Blood Pressure 144/59 L 05/08/18 17:00 O2 Sat by Pulse Oximetry (%) 99 05/08/18 09:00 Constitutional: Yes: Calm Eyes: Yes: EOM Intact HENT: Yes: Normocephalic Neck: Yes: Trachea Midline Cardiovascular: Yes: Tachycardia Respiratory: Yes: CTA Bilaterally Gastrointestinal: Yes: Normal Bowel Sounds ...Rectal Exam: Yes: Deferred Genitourinary: Yes: WNL Musculoskeletal: Yes: Muscle Weakness Neurological: Yes: Alert, Oriented Labs: CBC, BMP 05/08/18 06:00 05/08/18 06:00 INR, PTT INR 1.23 (0.83-1.09) H 05/03/18 22:00 Problem List - Problems (1) Type 2 diabetes mellitus with retinopathy without macular edema Code(s): E11.319 - TYPE 2 DIABETES W UNSP DIABETIC RTNOP W/O MACULAR EDEMA (2) Acute exacerbation of CHF (congestive heart failure) Code(s): I50.9 - HEART FAILURE, UNSPECIFIED Qualifiers: Heart failure type: unspecified Qualified Code(s): I50.9 - Heart failure, unspecified (3) Anemia Code(s): D64.9 - ANEMIA, UNSPECIFIED (4) Asthma Code(s): J45.909 - UNSPECIFIED ASTHMA, UNCOMPLICATED (5) UTI (urinary tract infection) Code(s): N39.0 - URINARY TRACT INFECTION, SITE NOT SPECIFIED (6) HORACE (acute kidney injury) Code(s): N17.9 - ACUTE KIDNEY FAILURE, UNSPECIFIED (7) Acute hypoxemic respiratory failure Code(s): J96.01 - ACUTE RESPIRATORY FAILURE WITH HYPOXIA Assessment/Plan Current Active Problems Acute exacerbation of CHF (congestive heart failure) (Acute) Anemia (Acute) Asthma (Acute) Sepsis (Acute) Type 2 diabetes mellitus with retinopathy without macular edema (Acute) UTI (urinary tract infection) (Acute) TERENCE AHI31 Abnormal Lab Results 05/03/18 05/08/18 05/08/18 23:15 06:00 06:00 RBC 3.35 L Hgb 9.9 L Hct 29.1 L Monocytes % 12.4 H ABG pH ABG HCO3 ABG O2 Content ABG Base Excess Anion Gap 5 L BUN 33 H Random Glucose 107 H Calcium 8.0 L AST 47 H ALT 68 H Alkaline Phosphatase 173 H Total Protein 5.8 L Albumin 2.0 L Crossmatch See Detail 05/08/18 10:19 RBC Hgb Hct Monocytes % ABG pH 7.46 H ABG HCO3 27.8 H ABG O2 Content 13.6 L ABG Base Excess 4.2 H Anion Gap BUN Random Glucose Calcium AST ALT Alkaline Phosphatase Total Protein Albumin Crossmatch Laboratory Tests 05/04/18 05/05/18 05/05/18 22:05 06:10 11:03 POC Glucometer 446 241 304 05/05/18 05/07/18 05/07/18 16:31 11:25 15:31 POC Glucometer 293 243 262 05/07/18 05/07/18 17:17 21:24 POC Glucometer 306 251 PLAN: Current Medications Generic Name Dose Route Start Last Admin Trade Name Freq PRN Reason Stop Dose Admin Albuterol/Ipratropium 1 amp 05/05/18 12:00 05/08/18 20:39 Duoneb - NEB Not Given RQID [facility] Atorvastatin Calcium 40 mg 05/04/18 22:00 05/07/18 21:26 Lipitor - PO 40 mg HS [facility] Administration Heparin Sodium (Porcine) 5,000 unit 05/04/18 22:00 05/08/18 10:22 Heparin - SQ Not Given BID [facility] Aztreonam 2 gm/ Dextrose 100 mls @ 100 mls/hr 05/04/18 11:45 05/08/18 12:08 IVPB 100 mls/hr Q12H [facility] Administration Protocol Insulin Aspart 55 units 05/08/18 21:00 Novolog Mix 70/30 Vial SQ BIDAC [facility] Insulin Aspart 1 vial 05/08/18 22:00 Novolog Vial Sliding Scale - SQ ACHS [facility] Protocol Insulin Detemir 50 units 05/08/18 22:00 Levemir Vial SQ BID [facility] Metoclopramide HCl 10 mg 05/05/18 23:17 05/05/18 23:28 Reglan Injection - IVPUSH 10 mg Q6H PRN Administration NAUSEA AND/OR VOMITING Mometasone Furoate 2 puff 05/04/18 10:00 05/08/18 10:25 Asmanex 220mcg - IH Not Given DAILY [facility] Pantoprazole Sodium 20 mg 05/06/18 22:00 05/07/18 21:26 Protonix - PO 20 mg HS [facility] Administration Polyethylene Glycol 17 gm 05/08/18 22:00 Miralax (For Daily Use) - PO BID [facility] Ranitidine HCl 150 mg 05/06/18 10:00 05/08/18 12:39 Zantac - PO 150 mg DAILY [facility] Administration
[2018-05-08] MEDS: PANTOPRAZOLE 20 MG TABLET (FP) PO SCH (22:17)
[2018-05-08] MEDS: ATORVASTATIN CA 40 MG TABLET (FP) PO SCH (22:17)
[2018-05-08] MEDS: POLYETHYLENE GLYCOL 3350 119 GM BTL PO SCH (22:18)
[2018-05-09] MEDS: INSULIN (NOVOLOG MIX 70/30) 100 UNITS/ML MDV SQ SCH ×3 (06:23→18:24)
[2018-05-09] MEDS: INSULIN SLIDING SCALE (NOVOLOG) 1 VIAL SQ SCH ×4 (06:23→21:50)
[2018-05-09 07:00] LABS: BASO % 0.6 % (0-2.0); EOS % 2.2 % (0-4.5); HEMATOCRIT 30.9 % (32.4-45.2); HEMOGLOBIN 10.2 GM/dL (10.7-15.3); LYMPH % 16.7 % (8-40); MCH 29.1 pg (25.7-33.7); MCHC 33.1 g/dl (32.0-36.0); MEAN CELL VOLUME 87.7 fl (80-96); MEAN PLT VOLUME 10.5 fl (7.5-11.1); MONO % 9.5 % (3.8-10.2); PLATELET COUNT 246 K/MM3 (134-434); RBC 3.53 M/mm3 (3.60-5.2); RDW 15.5 % (11.6-15.6); WHITE BLOOD COUNT 10.5 K/mm3 (4.0-10.0)
[2018-05-09 07:34] LABS: ALBUMIN 2.2 g/dl (3.4-5.0); ALK PHOS 183 U/L (45-117); ANION GAP 6 MMOL/L (8-16); BILIRUBIN,TOTAL 0.4 mg/dL (0.2-1); BLOOD UREA NITROGEN 25 mg/dL (7-18); CALCIUM 8.4 mg/dL (8.5-10.1); CHLORIDE 107 mmol/L (98-107); CO2 28 mmol/L (21-32); GLUCOSE,RANDOM 88 mg/dL (74-106); POTASSIUM 4.3 mmol/L (3.5-5.1); SGOT/AST 45 U/L (15-37); SGPT/ALT 66 U/L (13-61); SODIUM 140 mmol/L (136-145); TOT PROT 6.4 g/dl (6.4-8.2)
[2018-05-09] MEDS: ALBUTEROL SO4 2.5/IPRATROPIUM 0.5 INH SOL 3 ML VIAL.NEB. NEB SCH ×4 (08:18→21:11)
[2018-05-09] MEDS ORDERED: PT OWN MED DRAWER 7, Y5N ONE ×2 (08:25→23:41)
--- NOTE | 2018-05-09 08:31 | PN ---
Progress Note, Physician History of Present Illness: Patient examined and case discussed with Dr. Alvarado GI FOLLOW UP NOTE Patient states having a BM yesterday. Patient refuses Miralax for aid in constipation, states she only drinks prune juice. Liver US shows diffuse hepatic steatosis. Denies abdominal pain, diarrhea, nausea, vomiting. - Current Medication List Current Medications: Active Medications Albuterol/Ipratropium (Duoneb -) 1 amp NEB RQID [facility] Last Admin: 05/09/18 08:18 Dose: Not Given Atorvastatin Calcium (Lipitor -) 40 mg PO HS [facility] Last Admin: 05/08/18 22:17 Dose: 40 mg Heparin Sodium (Porcine) (Heparin -) 5,000 unit SQ BID [facility] Last Admin: 05/08/18 22:17 Dose: 5,000 unit Aztreonam 2 gm/ Dextrose 100 mls @ 100 mls/hr IVPB Q12H [facility]; Protocol Last Admin: 05/08/18 22:47 Dose: 100 mls/hr Insulin Aspart (Novolog Mix 70/30 Vial) 55 units SQ BIDAC [facility] Last Admin: 05/09/18 06:23 Dose: Not Given Insulin Aspart (Novolog Vial Sliding Scale -) 1 vial SQ ACHS [facility]; Protocol Last Admin: 05/09/18 06:23 Dose: Not Given Insulin Detemir (Levemir Vial) 50 units SQ BID [facility] Last Admin: 05/08/18 22:17 Dose: 50 units Metoclopramide HCl (Reglan Injection -) 10 mg IVPUSH Q6H PRN PRN Reason: NAUSEA AND/OR VOMITING Last Admin: 05/05/18 23:28 Dose: 10 mg Mometasone Furoate (Asmanex 220mcg -) 2 puff IH DAILY [facility] Last Admin: 05/08/18 10:25 Dose: Not Given Pantoprazole Sodium (Protonix -) 20 mg PO HS [facility] Last Admin: 05/08/18 22:17 Dose: 20 mg Polyethylene Glycol (Miralax (For Daily Use) -) 17 gm PO BID [facility] Last Admin: 05/08/18 22:18 Dose: Not Given Ranitidine HCl (Zantac -) 150 mg PO DAILY [facility] Last Admin: 05/08/18 12:39 Dose: 150 mg - Objective Vital Signs: Vital Signs Temperature 98.0 F 05/08/18 21:00 Pulse Rate 68 05/08/18 21:00 Respiratory Rate 18 05/08/18 21:00 Blood Pressure 148/58 L 05/08/18 21:00 O2 Sat by Pulse Oximetry (%) 98 05/08/18 21:00 Constitutional: Yes: No Distress, Calm Eyes: Yes: Conjunctiva Clear Cardiovascular: Yes: Regular Rate and Rhythm Respiratory: Yes: Regular, Diminished Gastrointestinal: Yes: Normal Bowel Sounds, Soft, Abdomen, Obese. No: WNL, Ascites, Distention, Hematemesis, Hemorrhoids, Hepatomegaly, Hernia, Hyperactive Bowel Sounds, Hypoactive Bowel Sounds, Melena, Palpable Mass, Pulsatile Mass, Rectal Bleeding, Splenomegaly, Tenderness, Tenderness, Epigastrium, Tenderness, Rebound, Vomiting, Other Musculoskeletal: Yes: Muscle Weakness Neurological: Yes: Alert, Oriented Psychiatric: Yes: Alert, Oriented Labs: CBC, BMP 05/09/18 06:30 05/09/18 06:30 INR, PTT INR 1.23 (0.83-1.09) H 05/03/18 22:00 Laboratory Results - last 24 hr 05/03/18 05/08/18 05/08/18 23:15 06:00 10:19 WBC RBC Hgb Hct MCV MCH MCHC RDW Plt Count MPV Absolute Neuts (auto) Neutrophils % Neutrophils % (Manual) 73.8 Band Neutrophils % 0.0 Lymphocytes % Lymphocytes % (Manual) 10.1 D Monocytes % Monocytes % (Manual) 10 D Eosinophils % Eosinophils % (Manual) 1.0 Basophils % Basophils % (Manual) 0.0 Myelocytes % (Man) 1 D Promyelocytes % (Man) 0 Blast Cells % (Manual) 0 Nucleated RBC % Metamyelocytes 1 D Hypochromia 0 Platelet Estimate Normal Polychromasia 1+ Poikilocytosis 0 Anisocytosis 1+ Microcytosis 1+ Macrocytosis 0 Puncture Site Right radial ABG pH 7.46 H ABG pCO2 at Pt Temp 39.5 ABG pO2 at Pt Temp 93.5 ABG HCO3 27.8 H ABG O2 Sat (Measured) 97.3 ABG O2 Content 13.6 L ABG Base Excess 4.2 H Luis Carlos Test Positive O2 Delivery Device Room air Oxygen Flow Rate 21% Sodium Potassium Chloride Carbon Dioxide Anion Gap BUN Creatinine Creat Clearance w eGFR POC Glucometer Random Glucose Calcium Total Bilirubin AST ALT Alkaline Phosphatase Total Protein Albumin Blood Type O POSITIVE Antibody Screen Positive Antibody Identification K Crossmatch See Detail 05/08/18 05/08/18 05/08/18 10:33 14:49 17:30 WBC RBC Hgb Hct MCV MCH MCHC RDW Plt Count MPV Absolute Neuts (auto) Neutrophils % Neutrophils % (Manual) Band Neutrophils % Lymphocytes % Lymphocytes % (Manual) Monocytes % Monocytes % (Manual) Eosinophils % Eosinophils % (Manual) Basophils % Basophils % (Manual) Myelocytes % (Man) Promyelocytes % (Man) Blast Cells % (Manual) Nucleated RBC % Metamyelocytes Hypochromia Platelet Estimate Polychromasia Poikilocytosis Anisocytosis Microcytosis Macrocytosis Puncture Site ABG pH ABG pCO2 at Pt Temp ABG pO2 at Pt Temp ABG HCO3 ABG O2 Sat (Measured) ABG O2 Content ABG Base Excess Luis Carlos Test O2 Delivery Device Oxygen Flow Rate Sodium Potassium Chloride Carbon Dioxide Anion Gap BUN Creatinine Creat Clearance w eGFR POC Glucometer 124 342 350 Random Glucose Calcium Total Bilirubin AST ALT Alkaline Phosphatase Total Protein Albumin Blood Type Antibody Screen Antibody Identification Crossmatch 05/08/18 05/09/18 05/09/18 22:10 06:04 06:30 WBC 10.5 H RBC 3.53 L Hgb 10.2 L Hct 30.9 L MCV 87.7 MCH 29.1 MCHC 33.1 RDW 15.5 Plt Count 246 D MPV 10.5 Absolute Neuts (auto) 7.5 Neutrophils % 71.0 Neutrophils % (Manual) Band Neutrophils % Lymphocytes % 16.7 Lymphocytes % (Manual) Monocytes % 9.5 Monocytes % (Manual) Eosinophils % 2.2 Eosinophils % (Manual) Basophils % 0.6 Basophils % (Manual) Myelocytes % (Man) Promyelocytes % (Man) Blast Cells % (Manual) Nucleated RBC % 0 Metamyelocytes Hypochromia Platelet Estimate Polychromasia Poikilocytosis Anisocytosis Microcytosis Macrocytosis Puncture Site ABG pH ABG pCO2 at Pt Temp ABG pO2 at Pt Temp ABG HCO3 ABG O2 Sat (Measured) ABG O2 Content ABG Base Excess Luis Carlos Test O2 Delivery Device Oxygen Flow Rate Sodium Potassium Chloride Carbon Dioxide Anion Gap BUN Creatinine Creat Clearance w eGFR POC Glucometer 174 58 Random Glucose Calcium Total Bilirubin AST ALT Alkaline Phosphatase Total Protein Albumin Blood Type Antibody Screen Antibody Identification Crossmatch 05/09/18 05/09/18 06:30 06:35 WBC RBC Hgb Hct MCV MCH MCHC RDW Plt Count MPV Absolute Neuts (auto) Neutrophils % Neutrophils % (Manual) Band Neutrophils % Lymphocytes % Lymphocytes % (Manual) Monocytes % Monocytes % (Manual) Eosinophils % Eosinophils % (Manual) Basophils % Basophils % (Manual) Myelocytes % (Man) Promyelocytes % (Man) Blast Cells % (Manual) Nucleated RBC % Metamyelocytes Hypochromia Platelet Estimate Polychromasia Poikilocytosis Anisocytosis Microcytosis Macrocytosis Puncture Site ABG pH ABG pCO2 at Pt Temp ABG pO2 at Pt Temp ABG HCO3 ABG O2 Sat (Measured) ABG O2 Content ABG Base Excess Luis Carlos Test O2 Delivery Device Oxygen Flow Rate Sodium 140 Potassium 4.3 Chloride 107 Carbon Dioxide 28 Anion Gap 6 L BUN 25 H Creatinine 1.0 Creat Clearance w eGFR 55.14 POC Glucometer 106 Random Glucose 88 Calcium 8.4 L Total Bilirubin 0.4 AST 45 H ALT 66 H Alkaline Phosphatase 183 H Total Protein 6.4 Albumin 2.2 L Blood Type Antibody Screen Antibody Identification Crossmatch <Ranjana Hayes - Last Filed: 05/09/18 08:31> - Current Medication List Current Medications: Active Medications Acetaminophen (Tylenol -) 1,000 mg PO Q6H PRN PRN Reason: PAIN LEVEL 4 - 6 Albuterol/Ipratropium (Duoneb -) 1 amp NEB RQID [facility] Last Admin: 05/09/18 15:51 Dose: Not Given Aspirin (Ecotrin -) 81 mg PO DAILY [facility] Atorvastatin Calcium (Lipitor -) 40 mg PO HS [facility] Last Admin: 05/08/18 22:17 Dose: 40 mg Furosemide (Lasix -) 40 mg PO DAILY [facility] Last Admin: 05/09/18 10:37 Dose: 40 mg Heparin Sodium (Porcine) (Heparin -) 5,000 unit SQ BID [facility] Last Admin: 05/09/18 10:28 Dose: Not Given Aztreonam 2 gm/ Dextrose 100 mls @ 100 mls/hr IVPB Q12H [facility]; Protocol Last Admin: 05/09/18 12:13 Dose: Not Given Insulin Aspart (Novolog Vial Sliding Scale -) 1 vial SQ ACHS [facility]; Protocol Last Admin: 05/09/18 16:56 Dose: 9 units Insulin Aspart (Novolog Mix 70/30 Vial) 35 units SQ BIDAC [facility] Last Admin: 05/09/18 18:24 Dose: Not Given Insulin Detemir (Levemir Vial) 50 units SQ ACBK [facility] Mometasone Furoate (Asmanex 220mcg -) 2 puff IH DAILY [facility] Last Admin: 05/09/18 10:26 Dose: Not Given Pantoprazole Sodium (Protonix -) 20 mg PO HS [facility] Last Admin: 05/08/18 22:17 Dose: 20 mg Polyethylene Glycol (Miralax (For Daily Use) -) 17 gm PO BID [facility] Last Admin: 05/09/18 10:26 Dose: Not Given Ranitidine HCl (Zantac -) 150 mg PO DAILY [facility] Last Admin: 05/09/18 10:25 Dose: 150 mg - Objective Vital Signs: Vital Signs Temperature 97.6 F 05/09/18 18:00 Pulse Rate 65 05/09/18 18:00 Respiratory Rate 18 05/09/18 18:00 Blood Pressure 139/68 05/09/18 18:00 O2 Sat by Pulse Oximetry (%) 98 05/09/18 09:00 Labs: CBC, BMP 05/09/18 06:30 05/09/18 06:30 INR, PTT INR 1.23 (0.83-1.09) H 05/03/18 22:00 <Thai Alvarado - Last Filed: 05/09/18 18:57> Problem List - Problems (1) Anemia Assessment/Plan: -H/H currently stable at 10.2/30.9 -will need CT enterography when renal function improves -made aware to follow up as outpatient for further GI workup and possible video capsule endoscopy Code(s): D64.9 - ANEMIA, UNSPECIFIED (2) Constipation Code(s): K59.00 - CONSTIPATION, UNSPECIFIED (3) Steatosis, liver Assessment/Plan: -follow up with GI as outpatient -monitor LFTs Code(s): K76.0 - FATTY (CHANGE OF) LIVER, NOT ELSEWHERE CLASSIFIED <Ranjana Hayes - Last Filed: 05/09/18 08:31> - Problems (1) Anemia Code(s): D64.9 - ANEMIA, UNSPECIFIED <Thai Alvarado - Last Filed: 05/09/18 18:57>
--- NOTE | 2018-05-09 08:57 | PN ---
Progress Note, Physician - Current Medication List Current Medications: Active Medications Albuterol/Ipratropium (Duoneb -) 1 amp NEB RQID [facility] Last Admin: 05/09/18 08:18 Dose: Not Given Atorvastatin Calcium (Lipitor -) 40 mg PO HS [facility] Last Admin: 05/08/18 22:17 Dose: 40 mg Heparin Sodium (Porcine) (Heparin -) 5,000 unit SQ BID [facility] Last Admin: 05/08/18 22:17 Dose: 5,000 unit Aztreonam 2 gm/ Dextrose 100 mls @ 100 mls/hr IVPB Q12H [facility]; Protocol Last Admin: 05/08/18 22:47 Dose: 100 mls/hr Insulin Aspart (Novolog Mix 70/30 Vial) 55 units SQ BIDAC [facility] Last Admin: 05/09/18 06:23 Dose: Not Given Insulin Aspart (Novolog Vial Sliding Scale -) 1 vial SQ ACHS [facility]; Protocol Last Admin: 05/09/18 06:23 Dose: Not Given Insulin Detemir (Levemir Vial) 50 units SQ BID [facility] Last Admin: 05/08/18 22:17 Dose: 50 units Metoclopramide HCl (Reglan Injection -) 10 mg IVPUSH Q6H PRN PRN Reason: NAUSEA AND/OR VOMITING Last Admin: 05/05/18 23:28 Dose: 10 mg Mometasone Furoate (Asmanex 220mcg -) 2 puff IH DAILY [facility] Last Admin: 05/08/18 10:25 Dose: Not Given Pantoprazole Sodium (Protonix -) 20 mg PO HS [facility] Last Admin: 05/08/18 22:17 Dose: 20 mg Polyethylene Glycol (Miralax (For Daily Use) -) 17 gm PO BID [facility] Last Admin: 05/08/18 22:18 Dose: Not Given Ranitidine HCl (Zantac -) 150 mg PO DAILY [facility] Last Admin: 05/08/18 12:39 Dose: 150 mg - Objective Vital Signs: Vital Signs Temperature 98.0 F 05/08/18 21:00 Pulse Rate 68 05/08/18 21:00 Respiratory Rate 18 05/08/18 21:00 Blood Pressure 148/58 L 05/08/18 21:00 O2 Sat by Pulse Oximetry (%) 98 05/08/18 21:00 Cardiovascular: Yes: S1, S2 Respiratory: Yes: Regular, CTA Bilaterally Gastrointestinal: Yes: Normal Bowel Sounds, Soft Labs: CBC, BMP 05/09/18 06:30 05/09/18 06:30 INR, PTT INR 1.23 (0.83-1.09) H 05/03/18 22:00 Assessment/Plan - Problems (1) Acute exacerbation of CHF (congestive heart failure) Assessment/Plan: telemetry hold lasix iv daily--rising cr --po lasix monitor sodium and renal function trend bnp cozaar on hold Code(s): I50.9 - HEART FAILURE, UNSPECIFIED Qualifiers: Heart failure type: unspecified Qualified Code(s): I50.9 - Heart failure, unspecified (2) UTI (urinary tract infection) Assessment/Plan: aztreonam-to levaquin on dc Code(s): N39.0 - URINARY TRACT INFECTION, SITE NOT SPECIFIED (3) Sepsis Assessment/Plan: cultures Microbiology 05/03/18 23:15 Blood - Peripheral Venous Blood Culture - Final Escherichia Coli 05/04/18 00:50 Urine - Urine - Catheterized Urine Culture - Final Escherichia Coli 05/03/18 23:00 Blood - Peripheral Venous Blood Culture - Final Escherichia Coli 05/05/18 02:00 Blood - Peripheral Venous Blood Culture - Preliminary NO GROWTH OBTAINED AFTER 24 HOURS, INCUBATION TO CONTINUE FOR 4 DAYS. 05/05/18 02:00 Blood - Peripheral Venous Blood Culture - Preliminary NO GROWTH OBTAINED AFTER 24 HOURS, INCUBATION TO CONTINUE FOR 4 DAYS. broad spectrum antibiotics Code(s): A41.9 - SEPSIS, UNSPECIFIED ORGANISM (4) Anemia Assessment/Plan: iron panel transfused prbc gi consult noted ppi dc plavix Code(s): D64.9 - ANEMIA, UNSPECIFIED Qualifiers: (5) Diabetes mellitus with hyperglycemia Assessment/Plan: bgm sliding scale [id number] levemir endocrine eval Code(s): E11.65 - TYPE 2 DIABETES MELLITUS WITH HYPERGLYCEMIA (6) cad Assessment/Plan: resumeasa if ok w gi
[2018-05-09] MEDS: AZTREONAM 2 GM in DEXTROSE 5%-WATER 100 ML IVPB SCH ×3 (10:25→23:56)
[2018-05-09] MEDS: RANITIDINE HCL 150 MG TABLET (FP) PO SCH (10:25)
[2018-05-09] MEDS: HEPARIN NA (PORCINE) 5,000 UNITS/ML 1ML VIAL SQ SCH ×3 (10:25→21:49)
[2018-05-09] MEDS: INSULIN (LEVEMIR) 100 UNITS/ML UNITS SQ SCH (10:25)
[2018-05-09] MEDS: POLYETHYLENE GLYCOL 3350 119 GM BTL PO SCH ×2 (10:26→21:49)
[2018-05-09] MEDS: MOMETASONE FUROATE 220 MCG/IH INHALER IH SCH (10:26)
[2018-05-09] MEDS: FUROSEMIDE 40 MG TABLET (FP) PO SCH (10:37)
[2018-05-09 12:07] LABS: ANISOCYTOSIS 0; MACROCYTOSIS 0; PLATELET ESTIMATE NORMAL
--- NOTE | 2018-05-09 12:21 | PN ---
Progress Note, Physician History of Present Illness: PULMONARY ALERT,NO DISTRESS -SOB - Current Medication List Current Medications: Active Medications Albuterol/Ipratropium (Duoneb -) 1 amp NEB RQID [facility] Last Admin: 05/09/18 11:10 Dose: Not Given Aspirin (Ecotrin -) 81 mg PO DAILY [facility] Atorvastatin Calcium (Lipitor -) 40 mg PO HS [facility] Last Admin: 05/08/18 22:17 Dose: 40 mg Furosemide (Lasix -) 40 mg PO DAILY [facility] Last Admin: 05/09/18 10:37 Dose: 40 mg Heparin Sodium (Porcine) (Heparin -) 5,000 unit SQ BID [facility] Last Admin: 05/09/18 10:28 Dose: Not Given Aztreonam 2 gm/ Dextrose 100 mls @ 100 mls/hr IVPB Q12H [facility]; Protocol Last Admin: 05/09/18 12:13 Dose: Not Given Insulin Aspart (Novolog Mix 70/30 Vial) 55 units SQ BIDAC [facility] Last Admin: 05/09/18 06:23 Dose: Not Given Insulin Aspart (Novolog Vial Sliding Scale -) 1 vial SQ ACHS [facility]; Protocol Last Admin: 05/09/18 11:13 Dose: Not Given Insulin Detemir (Levemir Vial) 50 units SQ BID [facility] Last Admin: 05/09/18 10:25 Dose: 50 units Mometasone Furoate (Asmanex 220mcg -) 2 puff IH DAILY [facility] Last Admin: 05/09/18 10:26 Dose: Not Given Pantoprazole Sodium (Protonix -) 20 mg PO HS [facility] Last Admin: 05/08/18 22:17 Dose: 20 mg Polyethylene Glycol (Miralax (For Daily Use) -) 17 gm PO BID [facility] Last Admin: 05/09/18 10:26 Dose: Not Given Ranitidine HCl (Zantac -) 150 mg PO DAILY [facility] Last Admin: 05/09/18 10:25 Dose: 150 mg - Objective Vital Signs: Vital Signs Temperature 98.0 F 05/08/18 21:00 Pulse Rate 68 05/08/18 21:00 Respiratory Rate 18 05/08/18 21:00 Blood Pressure 148/58 L 05/08/18 21:00 O2 Sat by Pulse Oximetry (%) 98 05/08/18 21:00 Constitutional: Yes: Well Nourished, Calm Eyes: Yes: WNL HENT: Yes: WNL Neck: Yes: WNL Cardiovascular: Yes: Regular Rate and Rhythm, S1, S2 Respiratory: Yes: Diminished Gastrointestinal: Yes: Normal Bowel Sounds, Soft Extremities: Yes: WNL Edema: Yes Labs: CBC, BMP 05/09/18 06:30 05/09/18 06:30 INR, PTT INR 1.23 (0.83-1.09) H 05/03/18 22:00 Assessment/Plan IMP DYSPNEA IMPROVED ACUTE ON CHRONIC CHF IMPROVING SYMPTOMATIC ANEMIA IMPROVED S/P TRANSFUSION GRAM NEGATIVE BACTEREMIA UROSEPSIS ASHD S/P [place],S/P STENT ACUTE ON CHRONIC KIDNEY INJURY OSAS SLEEP SCREEN AHI 31 C/W SEVERE OSAS ASTHMA HTN HLD PLAN CONTINUE ABX PER ID O2 INHALED BRONCHODILATORS NORMAL TRANSFUSION THRESHOLD MONITOR H+H MONITOR LYTES,RENAL FUNCTION FORMAL SLEEP STUDIES OUTPATIENT DR MANN
[2018-05-09] MEDS ORDERED: ACETAMINOPHEN 500 MG TABLET (FP) PO PRN (18:47)
[2018-05-09] MEDS: ATORVASTATIN CA 40 MG TABLET (FP) PO SCH (21:50)
[2018-05-09] MEDS ORDERED: LIDOCAINE PATCH REMOVAL MC SCH (22:00)
[2018-05-09] MEDS: PANTOPRAZOLE 20 MG TABLET (FP) PO SCH (22:51)
--- NOTE | 2018-05-09 23:23 | PN ---
Progress Note, Physician Chief Complaint: severe pain left calf and difficulty weight bearing right leg swollen - Current Medication List Current Medications: Active Medications Acetaminophen (Tylenol -) 1,000 mg PO Q6H PRN PRN Reason: PAIN LEVEL 4 - 6 Last Admin: 05/09/18 18:57 Dose: 1,000 mg Albuterol/Ipratropium (Duoneb -) 1 amp NEB RQID [facility] Last Admin: 05/09/18 21:11 Dose: Not Given Aspirin (Ecotrin -) 81 mg PO DAILY [facility] Atorvastatin Calcium (Lipitor -) 40 mg PO HS [facility] Last Admin: 05/09/18 21:50 Dose: 40 mg Furosemide (Lasix -) 40 mg PO DAILY [facility] Last Admin: 05/09/18 10:37 Dose: 40 mg Heparin Sodium (Porcine) (Heparin -) 5,000 unit SQ BID [facility] Last Admin: 05/09/18 21:49 Dose: 5,000 unit Aztreonam 2 gm/ Dextrose 100 mls @ 100 mls/hr IVPB Q12H [facility]; Protocol Last Admin: 05/09/18 12:13 Dose: Not Given Insulin Aspart (Novolog Mix 70/30 Vial) 35 units SQ BIDAC [facility] Last Admin: 05/09/18 18:24 Dose: Not Given Insulin Aspart (Novolog Vial Sliding Scale -) 1 vial SQ ACHS [facility]; Protocol Last Admin: 05/09/18 21:50 Dose: Not Given Insulin Detemir (Levemir Vial) 30 units SQ ACBK [facility] Lidocaine (Lidoderm Patch -) 1 patch TP DAILY [facility] Miscellaneous (Lidoderm Patch Removal) 1 each MC DAILY@2200 [facility] Last Admin: 05/09/18 21:49 Dose: 1 each Mometasone Furoate (Asmanex 220mcg -) 2 puff IH DAILY [facility] Last Admin: 05/09/18 10:26 Dose: Not Given Pantoprazole Sodium (Protonix -) 20 mg PO HS [facility] Last Admin: 05/09/18 22:51 Dose: 20 mg Polyethylene Glycol (Miralax (For Daily Use) -) 17 gm PO BID [facility] Last Admin: 05/09/18 21:49 Dose: Not Given Ranitidine HCl (Zantac -) 150 mg PO DAILY [facility] Last Admin: 05/09/18 10:25 Dose: 150 mg - Objective Vital Signs: Vital Signs Temperature 97.6 F 05/09/18 18:00 Pulse Rate 65 05/09/18 18:00 Respiratory Rate 18 05/09/18 18:00 Blood Pressure 139/68 05/09/18 18:00 O2 Sat by Pulse Oximetry (%) 96 05/09/18 20:30 Constitutional: Yes: Anxious Eyes: Yes: EOM Intact HENT: Yes: Normocephalic Neck: Yes: Trachea Midline Cardiovascular: Yes: Regular Rate and Rhythm Respiratory: Yes: CTA Bilaterally Gastrointestinal: Yes: Normal Bowel Sounds ...Rectal Exam: Yes: Deferred Genitourinary: Yes: WNL Musculoskeletal: Yes: Joint Stiffness, Joint Swelling, Muscle Pain, Muscle Weakness Extremities: Yes: WNL, Delayed Capillary Refill Edema: LLE: 1+, RLE: 1+ Neurological: Yes: Alert, Oriented Labs: CBC, BMP 05/09/18 06:30 05/09/18 06:30 INR, PTT INR 1.23 (0.83-1.09) H 05/03/18 22:00 Problem List - Problems (1) Type 2 diabetes mellitus with retinopathy without macular edema Code(s): E11.319 - TYPE 2 DIABETES W UNSP DIABETIC RTNOP W/O MACULAR EDEMA (2) Acute exacerbation of CHF (congestive heart failure) Code(s): I50.9 - HEART FAILURE, UNSPECIFIED Qualifiers: Heart failure type: unspecified Qualified Code(s): I50.9 - Heart failure, unspecified (3) Anemia Code(s): D64.9 - ANEMIA, UNSPECIFIED (4) Asthma Code(s): J45.909 - UNSPECIFIED ASTHMA, UNCOMPLICATED (5) UTI (urinary tract infection) Code(s): N39.0 - URINARY TRACT INFECTION, SITE NOT SPECIFIED (6) HORACE (acute kidney injury) Code(s): N17.9 - ACUTE KIDNEY FAILURE, UNSPECIFIED (7) Acute hypoxemic respiratory failure Code(s): J96.01 - ACUTE RESPIRATORY FAILURE WITH HYPOXIA Assessment/Plan Current Active Problems Acute exacerbation of CHF (congestive heart failure) (Acute) Anemia (Acute) Asthma (Acute) Sepsis (Acute) Steatosis, liver (Acute) Type 2 diabetes mellitus with retinopathy without macular edema (Acute) UTI (urinary tract infection) (Acute) left leg swelling edema r/o dvt Abnormal Lab Results 05/09/18 05/09/18 06:30 06:30 WBC 10.5 H RBC 3.53 L Hgb 10.2 L Hct 30.9 L Anion Gap 6 L BUN 25 H Calcium 8.4 L AST 45 H ALT 66 H Alkaline Phosphatase 183 H Albumin 2.2 L Laboratory Results - last 24 hr 05/09/18 05/09/18 05/09/18 06:04 06:30 06:30 WBC 10.5 H RBC 3.53 L Hgb 10.2 L Hct 30.9 L MCV 87.7 MCH 29.1 MCHC 33.1 RDW 15.5 Plt Count 246 D MPV 10.5 Absolute Neuts (auto) 7.5 Neutrophils % 71.0 Neutrophils % (Manual) 70.3 Band Neutrophils % 2.0 Lymphocytes % 16.7 Lymphocytes % (Manual) 18.8 D Monocytes % 9.5 Monocytes % (Manual) 6 Eosinophils % 2.2 Eosinophils % (Manual) 1.0 Basophils % 0.6 Basophils % (Manual) 1.0 D Myelocytes % (Man) 1 Promyelocytes % (Man) 0 Blast Cells % (Manual) 0 Nucleated RBC % 0 Metamyelocytes 0 D Hypochromia 0 Platelet Estimate Normal Polychromasia 0 Poikilocytosis 0 Anisocytosis 0 Microcytosis 0 Macrocytosis 0 Sodium 140 Potassium 4.3 Chloride 107 Carbon Dioxide 28 Anion Gap 6 L BUN 25 H Creatinine 1.0 Creat Clearance w eGFR 55.14 POC Glucometer 58 Random Glucose 88 Calcium 8.4 L Total Bilirubin 0.4 AST 45 H ALT 66 H Alkaline Phosphatase 183 H Total Protein 6.4 Albumin 2.2 L 05/09/18 05/09/18 05/09/18 06:35 10:17 16:42 WBC RBC Hgb Hct MCV MCH MCHC RDW Plt Count MPV Absolute Neuts (auto) Neutrophils % Neutrophils % (Manual) Band Neutrophils % Lymphocytes % Lymphocytes % (Manual) Monocytes % Monocytes % (Manual) Eosinophils % Eosinophils % (Manual) Basophils % Basophils % (Manual) Myelocytes % (Man) Promyelocytes % (Man) Blast Cells % (Manual) Nucleated RBC % Metamyelocytes Hypochromia Platelet Estimate Polychromasia Poikilocytosis Anisocytosis Microcytosis Macrocytosis Sodium Potassium Chloride Carbon Dioxide Anion Gap BUN Creatinine Creat Clearance w eGFR POC Glucometer 106 235 276 Random Glucose Calcium Total Bilirubin AST ALT Alkaline Phosphatase Total Protein Albumin 05/09/18 21:47 WBC RBC Hgb Hct MCV MCH MCHC RDW Plt Count MPV Absolute Neuts (auto) Neutrophils % Neutrophils % (Manual) Band Neutrophils % Lymphocytes % Lymphocytes % (Manual) Monocytes % Monocytes % (Manual) Eosinophils % Eosinophils % (Manual) Basophils % Basophils % (Manual) Myelocytes % (Man) Promyelocytes % (Man) Blast Cells % (Manual) Nucleated RBC % Metamyelocytes Hypochromia Platelet Estimate Polychromasia Poikilocytosis Anisocytosis Microcytosis Macrocytosis Sodium Potassium Chloride Carbon Dioxide Anion Gap BUN Creatinine Creat Clearance w eGFR POC Glucometer 107 Random Glucose Calcium Total Bilirubin AST ALT Alkaline Phosphatase Total Protein Albumin plan: duplex legs neal stocking asa Current Medications Generic Name Dose Route Start Last Admin Trade Name Freq PRN Reason Stop Dose Admin Acetaminophen 1,000 mg 05/09/18 18:47 05/09/18 18:57 Tylenol - PO 1,000 mg Q6H PRN Administration PAIN LEVEL 4 - 6 Albuterol/Ipratropium 1 amp 05/05/18 12:00 05/09/18 21:11 Duoneb - NEB Not Given RQID [facility] Aspirin 81 mg 05/10/18 10:00 Ecotrin - PO DAILY [facility] Atorvastatin Calcium 40 mg 05/04/18 22:00 05/09/18 21:50 Lipitor - PO 40 mg HS [facility] Administration Furosemide 40 mg 05/09/18 10:15 05/09/18 10:37 Lasix - PO 40 mg DAILY [facility] Administration Heparin Sodium (Porcine) 5,000 unit 05/04/18 22:00 05/09/18 21:49 Heparin - SQ 5,000 unit BID [facility] Administration Aztreonam 2 gm/ Dextrose 100 mls @ 100 mls/hr 05/04/18 11:45 05/09/18 12:13 IVPB Not Given Q12H [facility] Protocol Insulin Aspart 35 units 05/09/18 17:45 05/09/18 18:24 Novolog Mix 70/30 Vial SQ Not Given BIDAC [facility] Insulin Aspart 1 vial 05/09/18 20:19 05/09/18 21:50 Novolog Vial Sliding Scale - SQ Not Given ACHS [facility] Protocol Insulin Detemir 30 units 05/10/18 07:00 Levemir Vial SQ ACBK [facility] Lidocaine 1 patch 05/10/18 10:00 Lidoderm Patch - TP DAILY [facility] Miscellaneous 1 each 05/09/18 22:00 05/09/18 21:49 Lidoderm Patch Removal MC 1 each DAILY@2200 [facility] Administration Mometasone Furoate 2 puff 05/04/18 10:00 05/09/18 10:26 Asmanex 220mcg - IH Not Given DAILY [facility] Pantoprazole Sodium 20 mg 05/06/18 22:00 05/09/18 22:51 Protonix - PO 20 mg HS [facility] Administration Polyethylene Glycol 17 gm 05/08/18 22:00 05/09/18 21:49 Miralax (For Daily Use) - PO Not Given BID [facility] Ranitidine HCl 150 mg 05/06/18 10:00 05/09/18 10:25 Zantac - PO 150 mg DAILY [facility] Administration
[2018-05-10] MEDS ORDERED: INSULIN (LEVEMIR) 100 UNITS/ML UNITS SQ SCH ×2 (07:00)
[2018-05-10] MEDS: INSULIN SLIDING SCALE (NOVOLOG) 1 VIAL SQ SCH ×2 (07:08→12:11)
[2018-05-10] MEDS: INSULIN (NOVOLOG MIX 70/30) 100 UNITS/ML MDV SQ SCH (07:08)
[2018-05-10] MEDS: ALBUTEROL SO4 2.5/IPRATROPIUM 0.5 INH SOL 3 ML VIAL.NEB. NEB SCH ×3 (08:12→16:04)
[2018-05-10] MEDS ORDERED: ASPIRIN COATED 81 MG TABLET.EC PO SCH (10:00)
[2018-05-10] MEDS ORDERED: LIDOCAINE 5% TOPICAL PATCH TP SCH (10:00)
[2018-05-10] MEDS ORDERED: PT OWN MED DRAWER 7, Y5N ONE (10:17)
[2018-05-10] MEDS: FUROSEMIDE 40 MG TABLET (FP) PO SCH (10:19)
[2018-05-10] MEDS: HEPARIN NA (PORCINE) 5,000 UNITS/ML 1ML VIAL SQ SCH (10:19)
[2018-05-10] MEDS: RANITIDINE HCL 150 MG TABLET (FP) PO SCH (10:19)
[2018-05-10] MEDS: MOMETASONE FUROATE 220 MCG/IH INHALER IH SCH ×2 (10:19→10:33)
[2018-05-10] MEDS: POLYETHYLENE GLYCOL 3350 119 GM BTL PO SCH ×2 (10:20→10:33)
[2018-05-10] MEDS: AZTREONAM 2 GM in DEXTROSE 5%-WATER 100 ML IVPB SCH (12:12)
--- NOTE | 2018-05-10 14:10 | PN ---
Progress Note (short form) - Note Progress Note: NAD on RA. No CP or SOB. No acute events overnight. Intake & Output 05/07/18 05/08/18 05/09/18 05/10/18 23:59 23:59 23:59 23:59 Intake Total 1140 340 600 340 Balance 1140 340 600 340 Weight 548 lb 15.216 oz 248 lb 244 lb 8 oz Last Vital Signs Temp Pulse Resp BP Pulse Ox 98.6 F 80 18 150/60 96 05/10/18 10:00 05/10/18 10:00 05/10/18 10:00 05/10/18 10:00 05/10/18 09:00 Active Medications Acetaminophen (Tylenol -) 1,000 mg PO Q6H PRN PRN Reason: PAIN LEVEL 4 - 6 Last Admin: 05/09/18 18:57 Dose: 1,000 mg Albuterol/Ipratropium (Duoneb -) 1 amp NEB RQID [facility] Last Admin: 05/10/18 11:53 Dose: Not Given Aspirin (Ecotrin -) 81 mg PO DAILY [facility] Last Admin: 05/10/18 10:19 Dose: 81 mg Atorvastatin Calcium (Lipitor -) 40 mg PO HS [facility] Last Admin: 05/09/18 21:50 Dose: 40 mg Furosemide (Lasix -) 40 mg PO DAILY [facility] Last Admin: 05/10/18 10:19 Dose: 40 mg Heparin Sodium (Porcine) (Heparin -) 5,000 unit SQ BID [facility] Last Admin: 05/10/18 10:19 Dose: 5,000 unit Aztreonam 2 gm/ Dextrose 100 mls @ 100 mls/hr IVPB Q12H [facility]; Protocol Last Admin: 05/10/18 12:12 Dose: 100 mls/hr Insulin Aspart (Novolog Mix 70/30 Vial) 35 units SQ BIDAC [facility] Last Admin: 05/10/18 07:08 Dose: Not Given Insulin Aspart (Novolog Vial Sliding Scale -) 1 vial SQ ACHS [facility]; Protocol Last Admin: 05/10/18 12:11 Dose: 7 units Insulin Detemir (Levemir Vial) 30 units SQ ACBK [facility] Last Admin: 05/10/18 07:07 Dose: Not Given Lidocaine (Lidoderm Patch -) 1 patch TP DAILY [facility] Last Admin: 05/10/18 10:20 Dose: 1 patch Miscellaneous (Lidoderm Patch Removal) 1 each MC DAILY@2200 [facility] Last Admin: 05/09/18 21:49 Dose: 1 each Mometasone Furoate (Asmanex 220mcg -) 2 puff IH DAILY [facility] Last Admin: 05/10/18 10:33 Dose: Not Given Pantoprazole Sodium (Protonix -) 20 mg PO HS [facility] Last Admin: 05/09/18 22:51 Dose: 20 mg Polyethylene Glycol (Miralax (For Daily Use) -) 17 gm PO BID [facility] Last Admin: 05/10/18 10:33 Dose: Not Given Ranitidine HCl (Zantac -) 150 mg PO DAILY [facility] Last Admin: 05/10/18 10:19 Dose: 150 mg Constitutional: Yes: NAD Eyes: Yes: WNL HENT: Yes: WNL Neck: Yes: WNL Cardiovascular: Yes: Regular Rate and Rhythm, S1, S2 Respiratory: Yes: Diminished Gastrointestinal: Yes: Normal Bowel Sounds, Soft Extremities: Yes: WNL Edema: Yes Labs: Laboratory Results - last 24 hr 05/09/18 05/09/18 05/10/18 16:42 21:47 05:50 POC Glucometer 276 107 85 05/10/18 11:45 POC Glucometer 203 Assessment/Plan IMP DYSPNEA IMPROVED ACUTE ON CHRONIC CHF IMPROVING SYMPTOMATIC ANEMIA IMPROVED S/P TRANSFUSION GRAM NEGATIVE BACTEREMIA UROSEPSIS ASHD S/P LA,S/P STENT ACUTE ON CHRONIC KIDNEY INJURY OSAS SLEEP SCREEN AHI 31 C/W SEVERE OSAS ASTHMA HTN HLD PLAN ABX PER ID O2 INHALED BRONCHODILATORS NORMAL TRANSFUSION THRESHOLD WILL NEED TO SCHEDULE CPAP TITRATION AFTER D/C DR VARGHESE
--- NOTE | 2018-05-10 14:49 | PN ---
Progress Note, Physician Chief Complaint: patient in bed no distress - Current Medication List Current Medications: Active Medications Acetaminophen (Tylenol -) 1,000 mg PO Q6H PRN PRN Reason: PAIN LEVEL 4 - 6 Last Admin: 05/09/18 18:57 Dose: 1,000 mg Albuterol/Ipratropium (Duoneb -) 1 amp NEB RQID [facility] Last Admin: 05/10/18 11:53 Dose: Not Given Aspirin (Ecotrin -) 81 mg PO DAILY [facility] Last Admin: 05/10/18 10:19 Dose: 81 mg Atorvastatin Calcium (Lipitor -) 40 mg PO HS [facility] Last Admin: 05/09/18 21:50 Dose: 40 mg Furosemide (Lasix -) 40 mg PO DAILY [facility] Last Admin: 05/10/18 10:19 Dose: 40 mg Heparin Sodium (Porcine) (Heparin -) 5,000 unit SQ BID [facility] Last Admin: 05/10/18 10:19 Dose: 5,000 unit Aztreonam 2 gm/ Dextrose 100 mls @ 100 mls/hr IVPB Q12H [facility]; Protocol Last Admin: 05/10/18 12:12 Dose: 100 mls/hr Insulin Aspart (Novolog Mix 70/30 Vial) 35 units SQ BIDAC [facility] Last Admin: 05/10/18 07:08 Dose: Not Given Insulin Aspart (Novolog Vial Sliding Scale -) 1 vial SQ ACHS [facility]; Protocol Last Admin: 05/10/18 12:11 Dose: 7 units Insulin Detemir (Levemir Vial) 30 units SQ ACBK [facility] Last Admin: 05/10/18 07:07 Dose: Not Given Lidocaine (Lidoderm Patch -) 1 patch TP DAILY [facility] Last Admin: 05/10/18 10:20 Dose: 1 patch Miscellaneous (Lidoderm Patch Removal) 1 each MC DAILY@2200 [facility] Last Admin: 05/09/18 21:49 Dose: 1 each Mometasone Furoate (Asmanex 220mcg -) 2 puff IH DAILY [facility] Last Admin: 05/10/18 10:33 Dose: Not Given Pantoprazole Sodium (Protonix -) 20 mg PO HS [facility] Last Admin: 05/09/18 22:51 Dose: 20 mg Polyethylene Glycol (Miralax (For Daily Use) -) 17 gm PO BID [facility] Last Admin: 05/10/18 10:33 Dose: Not Given Ranitidine HCl (Zantac -) 150 mg PO DAILY [facility] Last Admin: 05/10/18 10:19 Dose: 150 mg - Objective Vital Signs: Vital Signs Temperature 97.8 F 05/10/18 14:22 Pulse Rate 77 05/10/18 14:22 Respiratory Rate 18 05/10/18 14:22 Blood Pressure 162/70 05/10/18 14:22 O2 Sat by Pulse Oximetry (%) 96 05/10/18 09:00 Constitutional: Yes: Calm Cardiovascular: Yes: Regular Rate and Rhythm, S1, S2 Respiratory: Yes: CTA Bilaterally Gastrointestinal: Yes: Normal Bowel Sounds, Soft Neurological: Yes: Alert Labs: CBC, BMP 05/09/18 06:30 05/09/18 06:30 INR, PTT INR 1.23 (0.83-1.09) H 05/03/18 22:00 Problem List - Problems (1) Acute exacerbation of CHF (congestive heart failure) Assessment/Plan: changed to po lasix Code(s): I50.9 - HEART FAILURE, UNSPECIFIED Qualifiers: Heart failure type: unspecified Qualified Code(s): I50.9 - Heart failure, unspecified (2) UTI (urinary tract infection) Assessment/Plan: aztrenom Microbiology 05/04/18 00:50 Urine - Urine - Catheterized Urine Culture - Final Escherichia Coli change to [po levaquin 500mg po daily for 3 days Code(s): N39.0 - URINARY TRACT INFECTION, SITE NOT SPECIFIED (3) Sepsis Assessment/Plan: cultures noted repeat lactic acid now normal wbc 11.3 now normal no fever on aztreonam change to levaquin Microbiology 05/04/18 00:50 Urine - Urine - Catheterized Urine Culture - Final Escherichia Coli 05/03/18 23:15 Blood - Peripheral Venous Blood Culture - Final Escherichia Coli 05/03/18 23:00 Blood - Peripheral Venous Blood Culture - Final Escherichia Coli Code(s): A41.9 - SEPSIS, UNSPECIFIED ORGANISM (4) Anemia Assessment/Plan: iron panel noted iron saturation is very low 6 sobia order venbofer as well Code(s): D64.9 - ANEMIA, UNSPECIFIED Qualifiers: (5) Diabetes mellitus with hyperglycemia Assessment/Plan: bgm sliding scale [id number] 11.6 uncontrolled levemir 50 units novolog 35 untis bid endocrine eval noted Code(s): E11.65 - TYPE 2 DIABETES MELLITUS WITH HYPERGLYCEMIA
[2018-05-10 18:24] VITALS: BP 145/74; PULSE 78; TEMP 98
--- NOTE | 2018-05-22 10:55 | EKG ---
Test Reason : Blood Pressure : / mmHG Vent. Rate : 057 BPM Atrial Rate : 057 BPM P-R Int : 170 ms QRS Dur : 120 ms QT Int : 476 ms P-R-T Axes : 065 -46 087 degrees QTc Int : 463 ms SINUS BRADYCARDIA LEFT ANTERIOR FASCICULAR BLOCK ABNORMAL ECG WHEN COMPARED WITH ECG OF 03-MAY-2018 21:57, VENT. RATE HAS DECREASED BY 32 BPM Confirmed by Jose Elias Stewart MD ([id number]) on 05/22/2018 10:55:29 AM Referred By: Confirmed By:Jose Elias Stewart MD
== END 2018-05-10 19:32 | disposition home or self-care (01) | DRG 871 ==
LOC: JER 21:30 → JERBED 05-04 02:02 → J4S 05-04 15:15
PROVIDERS: ADMIT Family Medicine; ATTEND Family Medicine
PROC: 30233N1 Transfusion of Nonautologous Red Blood Cells into Peripheral Vein, Percutaneous Approach (ICD-10-PCS; principal; 2018-05-05)
DX: A41.51 Sepsis due to Escherichia coli [E. coli] (principal); I50.33 Acute on chronic diastolic (congestive) heart failure; Z68.43 Body mass index [BMI] 50.0-59.9, adult; N17.9 Acute kidney failure, unspecified; N39.0 Urinary tract infection, site not specified; E87.2 Acidosis; I13.0 Hypertensive heart and chronic kidney disease with heart failure and stage 1 through stage 4 chronic kidney disease, or unspecified chronic kidney disease; E87.1 Hypo-osmolality and hyponatremia; D64.9 Anemia, unspecified; I25.10 Atherosclerotic heart disease of native coronary artery without angina pectoris; I25.2 Old myocardial infarction; J44.9 Chronic obstructive pulmonary disease, unspecified; E78.5 Hyperlipidemia, unspecified; J45.909 Unspecified asthma, uncomplicated; R06.02 Shortness of breath; E11.65 Type 2 diabetes mellitus with hyperglycemia; E11.22 Type 2 diabetes mellitus with diabetic chronic kidney disease; N18.9 Chronic kidney disease, unspecified; D72.829 Elevated white blood cell count, unspecified; G47.33 Obstructive sleep apnea (adult) (pediatric); E66.01 Morbid (severe) obesity due to excess calories; M19.90 Unspecified osteoarthritis, unspecified site; K21.9 Gastro-esophageal reflux disease without esophagitis; R74.8 Abnormal levels of other serum enzymes; Z95.5 Presence of coronary angioplasty implant and graft; Z88.0 Allergy status to penicillin
CPT/HCPCS: 36415; 36430; 36600; 71045-TC-FY; 74019-TC-FY; 76705-TC; 76775-TC; 76856-TC; 80048; 80053; 80061; 81003; 81015; 82550; 82553; 82570; 82728; 82803; 82962; 83036; 83540; 83550; 83605; 83721; 83735; 83880; 84100; 84156; 84300; 84484; 85025; 85027; 85610; 85730; 86850; 86870; 86900; 86901; 86902; 86922; 87040; 87086; 87186; 87205; 87804; 93005; 93010; 93970-TC; 94640; 97116-GP; 97161-GP; 99285-25; G0480; J0131; J1644; J1756; J7030; P9038; P9058

== ENCOUNTER 2018-08-09 09:39 | Inpatient (IN) | payer BC, OTHER ==
[2018-08-09 10:42] LABS: EOS % 2.5 % (0-4.5); HEMATOCRIT 26.5 % (32.4-45.2); HEMOGLOBIN 8.6 GM/dL (10.7-15.3); LYMPH % 15.5 % (8-40); MCH 28.5 pg (25.7-33.7); MCHC 32.6 g/dl (32.0-36.0); MEAN CELL VOLUME 87.6 fl (80-96); MEAN PLT VOLUME 10.8 fl (7.5-11.1); MONO % 7.7 % (3.8-10.2); NEUT % 73.3 % (42.8-82.8); PLATELET COUNT 204 K/MM3 (134-434); RBC 3.02 M/mm3 (3.60-5.2); RDW 15.4 % (11.6-15.6); WHITE BLOOD COUNT 6.9 K/mm3 (4.0-10.0)
--- NOTE | 2018-08-09 11:05 | PDOC ---
Documentation entered by Loren Weber SCRIBE, acting as scribe for Dann Price MD. Dann Price MD: This documentation has been prepared by the Tia peralta Nirvannie, SCRIBE, under my direction and personally reviewed by me in its entirety. I confirm that the documentation accurately reflects all work, treatment, procedures, and medical decision making performed by me. History of Present Illness - General Chief Complaint: Lightheaded Stated Complaint: WEAKNESS Time Seen by Provider: 08/09/18 09:54 History Source: Patient, Family (Son.) Exam Limitations: No Limitations - History of Present Illness Initial Comments: 08/09/18 10:30 The patient is a 68 year old female, with a significant past medical history of anemia (requiring blood transfusions), diabetes, hypertension, hyperlipidemia, LA, CAD, and asthma, who presents to the emergency department with, weakness, dizziness, and shortness of breath with minimal exertion. Patient notes an associated intermittent left sided chest pain. Endorses SOB and VASQUEZ. Patient states her symptoms are be similar to previous episodes of anemia requiring blood transfusions (most recently 08/2017). She denies any change in sensation or focal change in strength. She denies recent fevers or chills. She denies recent nausea, vomit, diarrhea or constipation. She denies recent dysuria, frequency, urgency or hematuria. Allergies: Penicillins Past Surgical History: Knee surgery, Angiocath cardiac stenting (2018). Social history: Nonsmoker. Denies EtOH use and recreational drug use. Primary Care Physician: Dr. Philip Past History - Past Medical History Allergies/Adverse Reactions: Allergies Allergy/AdvReac Type Severity Reaction Status Date / Time Penicillins Allergy Difficulty Verified 03/21/18 11:56 Breathing Home Medications: Ambulatory Orders Mometasone Furoate [Asmanex 220Mcg -] 2 inh IH DAILY PRN 08/02/12 Atorvastatin Ca [Lipitor] 40 mg PO HS #30 tablet 01/02/15 Furosemide [Lasix] 40 mg PO DAILY #30 tablet 03/23/18 Albuterol 2.5/Ipratropium 0.5 [Duoneb -] 1 amp NEB RQID amp 05/09/18 Aspirin Coated [Ecotrin -] 81 mg PO DAILY tablet.ec 05/09/18 Insulin (Levemir) [Levemir Vial] 50 units SQ BID units 05/09/18 Insulin (Novolog 70/30) [Novolog Mix 70/30 Vial -] 45 units SQ BIDAC units Pantoprazole Sodium [Protonix -] 20 mg PO HS #30 tablet.ec 05/09/18 Polyethylene Glycol 3350 [Miralax 119 gm Btl -] 17 gm PO BID bottle 05/09/18 Ranitidine [Zantac -] 150 mg PO DAILY #30 tablet 05/09/18 levoFLOXacin [Levaquin -] 500 mg PO DAILY #5 tablet 05/09/18 Anemia: Yes Asthma: Yes Cardiac Disorders: Yes (Yes,LA) COPD: No CHF: Yes Diabetes: Yes HTN: Yes Hypercholesterolemia: Yes - Surgical History Abdominal Surgery: Yes Cardiac Surgery: Yes (angiocath card stent x2) Orthopedic Surgery: Yes (knee surgery) - Immunization History TDAP Vaccination: Yes Immunization Up to Date: Yes - Suicide/Smoking/Psychosocial Hx Smoking Status: No Smoking History: Never smoked Have you smoked in the past 12 months: No Number of Cigarettes Smoked Daily: 0 Information on smoking cessation initiated: No Hx Alcohol Use: No Drug/Substance Use Hx: No Substance Use Type: None Hx Substance Use Treatment: No Review of Systems - Review of Systems Able to Perform ROS?: Yes Comments:: 08/09/18 10:30 GENERAL/CONSTITUTIONAL: No fever or chills. +weakness. HEAD, EYES, EARS, NOSE AND THROAT: No change in vision. No ear pain or discharge. No sore throat. CARDIOVASCULAR: +chest pain, +shortness of breath. no loss of consciousness RESPIRATORY: No cough, wheezing, or hemoptysis. GASTROINTESTINAL: No nausea, vomiting, diarrhea or constipation. GENITOURINARY: No dysuria, frequency, or change in urination. MUSCULOSKELETAL: No joint or muscle swelling or pain. No neck or back pain. SKIN: No rash NEUROLOGIC: No vertigo. ENDOCRINE: No increased thirst. No abnormal weight change. HEMATOLOGIC/LYMPHATIC: No easy bleeding, or history of blood clots. ALLERGIC/IMMUNOLOGIC: No hives or skin allergy. All Other Systems: Reviewed and Negative *Physical Exam - Vital Signs Last Vital Signs Temp Pulse Resp BP Pulse Ox 98.4 F 81 16 151/56 L 96 08/09/18 09:41 08/09/18 09:41 08/09/18 09:41 08/09/18 09:41 08/09/18 09:41 - Physical Exam Comments: 08/09/18 10:31 GENERAL: Awake, alert, and fully oriented, in no acute distress. HEAD: No signs of trauma EYES: PERRLA, EOMI, sclera anicteric, conjunctiva clear ENT: Auricles normal inspection, hearing grossly normal, nares patent, oropharynx clear without exudates. Moist mucosa NECK: Nontender, no stepoffs, Normal ROM, supple, no lymphadenopathy, JVD, or masses LUNGS: Breath sounds equal, clear to auscultation bilaterally. No wheezes, and no crackles HEART: Regular rate and rhythm, normal S1 and S2, no murmurs, rubs or gallops ABDOMEN: Soft, nontender, normoactive bowel sounds. No guarding, no rebound. No masses EXTREMITIES: +2 PE BLE, No clubbing or cyanosis. No cords, erythema, or tenderness NEUROLOGICAL: Cranial nerves II through XII intact. 5/5 strength and sensation in all extremities, Normal speech, normal gait, normal cerebellar function SKIN: Warm, Dry, normal turgor, no rashes or lesions noted. Heart Score/ECG Review - History History: Slightly suspicious - Electrocardiogram EKG: Non specific repolarization disturbance - Age Age: >/= 65 - Risk Factors Risk Factors Heart Score: Yes Hx Hypercholesterolemia, Yes Hx Hypertension, Yes Hx Diabetes Based on the list above the patient has:: >/=3 risk factors or Hx atherosclerotic disease - Troponin Troponin: </= normal limit - Score Heart Score - Total: 5 - ECG Impressions Comment:: 08/09/18 10:56 NSR, no MARJORIE/STDs, TWI in I and aVL, left axis deviation, rate 82 ED Treatment Course - LABORATORY CBC & Chemistry Diagram: 08/09/18 10:19 08/09/18 10:19 - ADDITIONAL ORDERS Additional order review: 08/09/18 10:19 RBC 3.02 L MCV 87.6 MCHC 32.6 RDW 15.4 MPV 10.8 Neutrophils % 73.3 Lymphocytes % 15.5 Monocytes % 7.7 Eosinophils % 2.5 Basophils % 1.0 - RADIOLOGY Radiology Studies Ordered: Category Date Time Status CHEST X-RAY PORTABLE* [RAD] Stat Radiology 08/09/18 10:12 Ordered Medical Decision Making - Medical Decision Making 08/09/18 11:04 68 F with VASQUEZ, SOB, CP, and weakness. Suspicious for symptomatic anemia, as pt has had similar episodes in the past. However, she also has h/o cardiac stents and is high risk for ACS. Will also evaluate for CHF. - labs, trop, BNP - CXR 08/09/18 11:31 Labs notable for trop 0.09 EKG unchanged Pt admitted to Dr. Li *DC/Admit/Observation/Transfer Diagnosis at time of Disposition: Shortness of breath - Discharge Dispostion Condition at time of disposition: Stable Decision to Admit order: Yes - Referrals Referrals: Russell Philip MD [Primary Care Provider] - - Patient Instructions - Post Discharge Activity - Attestations Physician Attestion: 08/09/18 11:32 I, Dr. Dann Price MD, attest that this document has been prepared under my direction and personally reviewed by me in its entirety. I further attest, that it accurately reflects all work, treatment, procedures and medical decision -making performed by me.
[2018-08-09 11:08] LABS: BILIRUBIN,TOTAL 0.4 mg/dL (0.2-1); CALCIUM 8.7 mg/dL (8.5-10.1); CREATININE 1.3 mg/dL (0.55-1.3); N-TERMINAL BNP 1083.7 pg/ml (5-125); TOT PROT 6.6 g/dl (6.4-8.2)
--- NOTE | 2018-08-09 13:01 | CON.PULM ---
Consult Consult Specialty:: PULM/CCM Referred by:: LUCILA Reason for Consultation:: SOB - History of Present Illness Chief Complaint: SOB History of Present Illness: 68 F, anemia (requiring recent blood transfusions x 3). no obvious source of bleeding, diabetes, hypertension, hyperlipidemia, previous AMI, CAD, OSAS (not currently on treatment), and asthma (never intubated, unknown PEF, not steroid dependent, rare use of BD TX). Admitted via the ER due to generalized weakness, dizziness, and shortness of breath with minimal exertion. She also reports intermittent left sided shoulder and chest pain. No significant cough or sputum production. No wheezing. No fever or chills. No travel history or sick contacts. CXR: no acute pathology - History Source History Provided By: Patient, Family Member Limitations to Obtaining History: No Limitations - Past Medical History Cardio/Vascular: Yes: CAD (S/P STENTING), HTN, Hyperlipdemia. No: AFIB Pulmonary: Yes: Asthma, Bronchitis, Pneumonia, Sleep Apnea. No: COPD, O2 Dependent, Previously Intubated, Pulmonary Embolus, Pulmonary Fibrosis Gastrointestinal: Yes: GERD. No: Ascites Musculoskeletal: Yes: Osteoarthritis Endocrine: Yes: Diabetes Mellitus - Alcohol/Substance Use Hx Alcohol Use: No History of Substance Use: reports: None - Smoking History Smoking history: Never smoked Have you smoked in the past 12 months: No Aproximately how many cigarettes per day: 0 - Social History ADL: Family Assistance History of Recent Travel: No Home Medications - Allergies Allergies/Adverse Reactions: Allergies Allergy/AdvReac Type Severity Reaction Status Date / Time Penicillins Allergy Difficulty Verified 03/21/18 11:56 Breathing - Home Medications Home Medications: Ambulatory Orders Mometasone Furoate [Asmanex 220Mcg -] 2 inh IH DAILY PRN 08/02/12 Atorvastatin Ca [Lipitor] 40 mg PO HS #30 tablet 01/02/15 Furosemide [Lasix] 40 mg PO DAILY #30 tablet 03/23/18 Albuterol 2.5/Ipratropium 0.5 [Duoneb -] 1 amp NEB RQID amp 05/09/18 Aspirin Coated [Ecotrin -] 81 mg PO DAILY tablet.ec 05/09/18 Insulin (Levemir) [Levemir Vial] 50 units SQ BID units 05/09/18 Insulin (Novolog 70/30) [Novolog Mix 70/30 Vial -] 45 units SQ BIDAC units Pantoprazole Sodium [Protonix -] 20 mg PO HS #30 tablet.ec 05/09/18 Polyethylene Glycol 3350 [Miralax 119 gm Btl -] 17 gm PO BID bottle 05/09/18 Ranitidine [Zantac -] 150 mg PO DAILY #30 tablet 05/09/18 Family Disease History - Family Disease History Family Disease History: Diabetes: Mother, Sister Review of Systems - Review of Systems Constitutional: reports: Malaise. denies: Chills, Fever, Night Sweats, Unintentional Wgt. Loss, Weakness Eyes: reports: No Symptoms HENT: reports: No Symptoms Neck: reports: No Symptoms Cardiovascular: reports: Chest Pain, Shortness of Breath. denies: Edema, Palpitations Respiratory: reports: Snoring, SOB, SOB on Exertion. denies: Cough, Hemoptysis , Orthopnea, PND, Wheezing Gastrointestinal: reports: No Symptoms. denies: Dysphagia, Melena, Rectal Bleeding, Vomiting Blood Genitourinary: reports: No Symptoms Breasts: reports: No Symptoms Reported Musculoskeletal: reports: No Symptoms Integumentary: reports: No Symptoms Neurological: reports: No Symptoms Endocrine: reports: No Symptoms Hematology/Lymphatic: reports: No Symptoms Psychiatric: reports: No Symptoms Physical Exam Vital Sings: Vital Signs Temperature 98.4 F 08/09/18 09:41 Pulse Rate 81 08/09/18 09:41 Respiratory Rate 16 08/09/18 09:41 Blood Pressure 151/56 L 08/09/18 09:41 O2 Sat by Pulse Oximetry (%) 96 08/09/18 09:41 Constitutional: Yes: No Distress, Obese Eyes: Yes: Conjunctiva Clear HENT: Yes: Atraumatic, Normocephalic Neck: Yes: Supple, Trachea Midline Cardiovascular: Yes: Regular Rate and Rhythm Respiratory: Yes: Diminished. No: Accessory Muscle Use, Rales, Rhonchi, SOB, SOB on Exertion, Stridor, Tachypnea, Wheezes ...Inspection: Yes: WNL ...Clubbing: No Gastrointestinal: Yes: Normal Bowel Sounds, Soft, Abdomen, Obese Musculoskeletal: Yes: WNL Extremities: Yes: WNL Edema: Yes Peripheral Pulses WNL: No Integumentary: Yes: WNL Neurological: Yes: WNL ...Motor Strength: WNL Psychiatric: Yes: WNL, Alert, Oriented Labs: CBC, BMP 08/09/18 10:19 08/09/18 10:19 Imaging - Results Chest X-ray: Report Reviewed, Image Reviewed Problem List - Problems (1) Shortness of breath Code(s): R06.02 - SHORTNESS OF BREATH (2) Anemia Code(s): D64.9 - ANEMIA, UNSPECIFIED Qualifiers: (3) Atypical chest pain Code(s): R07.89 - OTHER CHEST PAIN (4) CAD (coronary artery disease) Code(s): I25.10 - ATHSCL HEART DISEASE OF [place] CORONARY ARTERY W/O ANG PCTRS (5) Chest pain Code(s): R07.9 - CHEST PAIN, UNSPECIFIED (6) Diabetes 1.5, managed as type 2 Code(s): E10.9 - TYPE 1 DIABETES MELLITUS WITHOUT COMPLICATIONS (7) Dizziness Code(s): R42 - DIZZINESS AND GIDDINESS (8) HLD (hyperlipidemia) Code(s): E78.5 - HYPERLIPIDEMIA, UNSPECIFIED (9) Hypertension Code(s): I10 - ESSENTIAL (PRIMARY) HYPERTENSION (10) Sleep apnea Code(s): G47.30 - SLEEP APNEA, UNSPECIFIED (11) Symptomatic anemia Code(s): D64.9 - ANEMIA, UNSPECIFIED (12) Thyroid enlarged Code(s): E04.9 - NONTOXIC GOITER, UNSPECIFIED Assessment/Plan Do not suspect AE of Asthma or overt Respiratory illness. Suspect symptoms related to anemia and weight Cardiology consultation has been called BD TX ordered PRN No indication for systemic steroids at this time Will need further sleep apnea optimization after discharge No indication for ABX O2 as needed If otherwise clinically stable and workup is negative, there is no Pulmonary contraindication for D/C planing Will follow while admitted. Thank you. Dr Amaro
--- NOTE | 2018-08-09 14:25 | EKG ---
Test Reason : Blood Pressure : / mmHG Vent. Rate : 082 BPM Atrial Rate : 082 BPM P-R Int : 170 ms QRS Dur : 112 ms QT Int : 398 ms P-R-T Axes : 066 -42 104 degrees QTc Int : 464 ms NORMAL SINUS RHYTHM LEFT AXIS DEVIATION MINIMAL VOLTAGE CRITERIA FOR LVH, MAY BE NORMAL VARIANT T WAVE ABNORMALITY, CONSIDER LATERAL ISCHEMIA ABNORMAL ECG WHEN COMPARED WITH ECG OF 04-MAY-2018 05:17, NO SIGNIFICANT CHANGE WAS FOUND Confirmed by STEPHANIE LUCERO MD ([id number]) on 08/09/2018 2:25:08 PM Referred By: Confirmed By:STEPHANIE LUCERO MD
--- NOTE | 2018-08-09 14:26 | CON.CARD ---
Consult Consult Specialty:: Cardiology Referred by:: Dr. Coleman Reason for Consultation:: Shortness of breath - History of Present Illness Chief Complaint: Shortness of breath History of Present Illness: 68 year-old woman with a PMHx of HTN, DM-II, HLD, CAD, s/p mid LAD PCI with RADU on 05/02/2017, anemia (requiring recent blood transfusions x 3), no obvious source of bleeding, OSAS (not currently on treatment), and asthma presented to ED 08/09/2018 due to generalized weakness, dizziness, and shortness of breath with minimal exertion. She has occasional short lasting sharp chest pain. CXR: cardiomegaly without acute pathology. Seen by Dr. Amaro, "Do not suspect AE of Asthma or overt Respiratory illness. Suspect symptoms related to anemia and weight" BNP is mildly elevated. Troponin 0.09. Severe anemia noted. ECG 08/09/2018 showed sinus rhythm at 87 BPM, LAD, LVH with I and aVL T inversion , no change from 05/04/2018. Echocardiogram 03/22/2018: Mild concentric LVH with normal wall motion and systolic function. LVEF = 60-65%. Normal RV. Normal LA and RA in size. No significant valvular abnormalities. - History Source History Provided By: Patient, Medical Record Limitations to Obtaining History: No Limitations - Past Medical History Cardio/Vascular: Yes: CAD (S/P STENTING), HTN, Hyperlipdemia. No: AFIB Pulmonary: Yes: Asthma, Bronchitis, Pneumonia, Sleep Apnea. No: COPD, O2 Dependent, Previously Intubated, Pulmonary Embolus, Pulmonary Fibrosis Gastrointestinal: Yes: GERD. No: Ascites Musculoskeletal: Yes: Osteoarthritis Endocrine: Yes: Diabetes Mellitus - Alcohol/Substance Use Hx Alcohol Use: No History of Substance Use: reports: None - Smoking History Smoking history: Never smoked Have you smoked in the past 12 months: No Aproximately how many cigarettes per day: 0 - Social History ADL: Family Assistance History of Recent Travel: No Home Medications - Allergies Allergies/Adverse Reactions: Allergies Allergy/AdvReac Type Severity Reaction Status Date / Time Penicillins Allergy Difficulty Verified 03/21/18 11:56 Breathing - Home Medications Home Medications: Ambulatory Orders Mometasone Furoate [Asmanex 220Mcg -] 2 inh IH DAILY PRN 08/02/12 Atorvastatin Ca [Lipitor] 40 mg PO HS #30 tablet 01/02/15 Furosemide [Lasix] 40 mg PO DAILY #30 tablet 03/23/18 Albuterol 2.5/Ipratropium 0.5 [Duoneb -] 1 amp NEB RQID amp 05/09/18 Aspirin Coated [Ecotrin -] 81 mg PO DAILY tablet.ec 05/09/18 Insulin (Levemir) [Levemir Vial] 50 units SQ BID units 05/09/18 Insulin (Novolog 70/30) [Novolog Mix 70/30 Vial -] 45 units SQ BIDAC units Pantoprazole Sodium [Protonix -] 20 mg PO HS #30 tablet.ec 05/09/18 Polyethylene Glycol 3350 [Miralax 119 gm Btl -] 17 gm PO BID bottle 05/09/18 Ranitidine [Zantac -] 150 mg PO DAILY #30 tablet 05/09/18 Family Disease History - Family Disease History Family Disease History: Diabetes: Mother, Sister Vital Signs: Vital Signs Temperature 98.1 F 08/09/18 14:08 Pulse Rate 73 08/09/18 14:08 Respiratory Rate 18 08/09/18 14:08 Blood Pressure 137/48 L 08/09/18 14:08 O2 Sat by Pulse Oximetry (%) 98 08/09/18 14:08 General: Well developed. Obese. No acute distress. Head: Normocephalic. Atraumatic, Eyes: PERRLA, EOMI. Sclerae anicteric. Conjunctivae clear. Neck: Supple. No JVD. No bruits. Heart: Normal S1, S2: Regular rhythm and rate. No murmur. No gallop or rub. Lungs: Symmetrical poor air entry. Clear to auscultation. No crackles. No wheezing or rhonchi. Abdomen: Soft. Bowel sound positive. Non tender. No masses. Extremities: No edema. No clubbing or cyanosis. PD 2+, equal bilaterally. - Other Data Labs, Other Data: CBC, BMP 08/09/18 10:19 08/09/18 10:19 Troponin, BNP 08/09/18 10:19 Troponin I 0.09 H B-Natriuretic Peptide 1083.7 H Troponin, BNP 08/09/18 10:19 Troponin I 0.09 H B-Natriuretic Peptide 1083.7 H Imaging - Results EKG: Image Reviewed (ECG 08/09/2018 showed sinus rhythm at 87 BPM, LAD, LVH with I and aVL T inversion, no change from 05/04/2018.) Assessment/Plan 68 year-old woman with a PMHx of HTN, DM-II, HLD, CAD, s/p mid LAD PCI with RADU on 05/02/2017, anemia (requiring recent blood transfusions x 3), no obvious source of bleeding, OSAS (not currently on treatment), and asthma presented to ED 08/09/2018 due to generalized weakness, dizziness, and shortness of breath with minimal exertion. She has occasional short lasting sharp chest pain. CXR: cardiomegaly without acute pathology. BNP is mildly elevated. Troponin 0.09. Severe anemia noted. ECG 08/09/2018 showed sinus rhythm at 87 BPM, LAD, LVH with I and aVL T inversion , no change from 05/04/2018. Echocardiogram 03/22/2018: Mild concentric LVH with normal wall motion and systolic function. LVEF = 60-65%. Normal RV. Normal LA and RA in size. No significant valvular abnormalities. 1) Dyspnea on minimal exertion with mildly elevated BNP: likely due to severe anemia, high output in the setting LV diastolic dysfunction. May increase Lasix 40 mg PO BID. Therapy for underline anemia. 2) CAD s/p mid LAD PCI with RADU 05/02/2017. Stable with atypical chest pain, likely non-cardiac. Mildly elevated troponin likely due to severe anemia. Start metoprolol succinate 25 mg daily for cardiac protection, titrate up as tolerated. Continue aspirin and atorvastatin.
--- NOTE | 2018-08-09 15:21 | HP ---
Admitting History and Physical - Primary Care Physician PCP: Gwen Jacobson - Admission Chief Complaint: came in for dizziness and weakness VASQUEZ History of Present Illness: This is a 67 y/o woman with a PMHx of HTN, HLD, CAD, [place], DM, Anemia( requiring transfusion) Asthma. came in with VASQUEZ, weakness and feeling tired per patient she walk to bathroom and back gets short of pain and chest discomfort, in ER h/h drop to 8 from 10 patient has required transfusion for anemia in past . - Past Medical History Cardiovascular: Yes: CAD (S/P STENTING), HTN, Hyperlipdemia. No: AFIB Pulmonary: Yes: Asthma, Bronchitis, Pneumonia, Sleep Apnea. No: COPD, O2 Dependent, Previously Intubated, Pulmonary Embolus, Pulmonary Fibrosis Gastrointestinal: Yes: GERD. No: Ascites Heme/Onc: Yes: Anemia Musculoskeletal: Yes: Osteoarthritis Endocrine: Yes: Diabetes Mellitus - Smoking History Smoking history: Never smoked Have you smoked in the past 12 months: No Aproximately how many cigarettes per day: 0 - Alcohol/Substance Use Hx Alcohol Use: No History of Substance Use: reports: None - Social History ADL: Family Assistance History of Recent Travel: No Home Medications - Allergies Allergies/Adverse Reactions: Allergies Allergy/AdvReac Type Severity Reaction Status Date / Time Penicillins Allergy Difficulty Verified 03/21/18 11:56 Breathing - Home Medications Home Medications: Ambulatory Orders Mometasone Furoate [Asmanex 220Mcg -] 2 inh IH DAILY PRN 08/02/12 Atorvastatin Ca [Lipitor] 40 mg PO HS #30 tablet 01/02/15 Furosemide [Lasix] 40 mg PO DAILY #30 tablet 03/23/18 Albuterol 2.5/Ipratropium 0.5 [Duoneb -] 1 amp NEB RQID amp 05/09/18 Aspirin Coated [Ecotrin -] 81 mg PO DAILY tablet.ec 05/09/18 Insulin (Levemir) [Levemir Vial] 50 units SQ BID units 05/09/18 Insulin (Novolog 70/30) [Novolog Mix 70/30 Vial -] 45 units SQ BIDAC units Pantoprazole Sodium [Protonix -] 20 mg PO HS #30 tablet.ec 05/09/18 Polyethylene Glycol 3350 [Miralax 119 gm Btl -] 17 gm PO BID bottle 05/09/18 Ranitidine [Zantac -] 150 mg PO DAILY #30 tablet 05/09/18 Family Disease History - Family Disease History Family Disease History: Diabetes: Mother, Sister Review of Systems - Review of Systems Constitutional: reports: Weakness Respiratory: reports: SOB on Exertion Physical Examination Vital Signs: Vital Signs Temperature 98.1 F 08/09/18 14:08 Pulse Rate 73 08/09/18 14:08 Respiratory Rate 18 08/09/18 14:08 Blood Pressure 137/48 L 08/09/18 14:08 O2 Sat by Pulse Oximetry (%) 98 08/09/18 14:08 Constitutional: Yes: Calm Cardiovascular: Yes: Regular Rate and Rhythm, S1, S2 Respiratory: Yes: CTA Bilaterally Gastrointestinal: Yes: Normal Bowel Sounds, Soft Edema: Yes Neurological: Yes: Alert, Oriented Labs: CBC, BMP 08/09/18 10:19 08/09/18 10:19 Problem List - Problems (1) Shortness of breath Assessment/Plan: pulm consult appreciate cardiology to see patient- sobia get echo observation telemetry admission transfuse blood with po lasix fu cbc after blood gi eval dr dominguez stool occult iron panel Code(s): R06.02 - SHORTNESS OF BREATH (2) Anemia Assessment/Plan: see aobve heme and gi eval Code(s): D64.9 - ANEMIA, UNSPECIFIED Qualifiers: (3) Diabetes 1.5, managed as type 2 Assessment/Plan: bgm novolg bid Code(s): E10.9 - TYPE 1 DIABETES MELLITUS WITHOUT COMPLICATIONS (4) HLD (hyperlipidemia) Assessment/Plan: statin lipid panel Code(s): E78.5 - HYPERLIPIDEMIA, UNSPECIFIED
[2018-08-09] MEDS ORDERED: ALBUTEROL SO4 2.5/IPRATROPIUM 0.5 INH SOL 3 ML VIAL.NEB. NEB PRN (15:25)
[2018-08-09] MEDS ORDERED: FUROSEMIDE 40 MG TABLET (FP) ONE (15:41)
--- NOTE | 2018-08-09 15:41 | CONSULT ---
Consultation: REQUESTING PROVIDER: CONSULT REQUEST: We have been asked to medically evaluate this patient for anemia HISTORY OF PRESENT ILLNESS: This is a 67 yo F with PMH of anemia requiring transfusions, HTN, HLD, CAD, [place], DM, and Asthma presenting with exertional dyspnea, found to have hgb 8.6, down from previously recorded 10. last admission 04/2018 for similarly low hgb. Underwent EGD/Colonoscopy at [facility] 06/23/17, EGD was unrevealing and colonoscopy revealed diminutive ascending colon polyps. was recommended outpatient capsule endoscopy but unclear whether she had it done. has been on fe PO supplements daily in the past. REVIEW OF SYSTEMS: CONSTITUTIONAL: Absent: fever, chills HEENT: Absent: rhinorrhea, nasal congestion, throat pain CARDIOVASCULAR: Absent: irregular heart rate, peripheral edema RESPIRATORY: Absent: cough, hemoptysis GASTROINTESTINAL: Absent: abdominal pain, abdominal distension, nausea, vomiting, diarrhea, constipation, melena, hematochezia GENITOURINARY: Absent: dysuria, hematuria MUSCULOSKELETAL: Absent: myalgia, arthralgia SKIN: Absent: rash, itching, pallor HEMATOLOGIC/IMMUNOLOGIC: Absent: easy bleeding, easy bruising ENDOCRINE: Absent: unexplained weight gain, unexplained weight loss NEUROLOGIC: Absent: headache, focal weakness or paresthesias PSYCHIATRIC: Absent: anxiety, depression PHYSICAL EXAMINATION Vital Signs - 24 hr 08/09/18 08/09/18 09:41 14:08 Temperature 98.4 F 98.1 F Pulse Rate 81 Pulse Rate [ 73 Apical] Respiratory 16 18 Rate Blood Pressure 151/56 L Blood Pressure 137/48 L [Right Arm] O2 Sat by Pulse 96 98 Oximetry (%) GENERAL: Awake, alert, and fully oriented, in no acute distress. HEAD: Normal with no signs of trauma. EYES: extraocular movements intact, sclera anicteric, conjunctiva clear. No lid lag. EARS, NOSE, THROAT: Moist mucous membranes. NECK: supple LUNGS: Breath sounds equal, clear to auscultation bilaterally HEART: Regular rate and rhythm, normal S1 and S2 ABDOMEN: Soft, nontender, not distended, normoactive bowel sounds MUSCULOSKELETAL: No CVA tenderness. SKIN: Warm, dry, normal turgor, no rashes or lesions noted. Laboratory Results - last 24 hr 08/09/18 08/09/18 08/09/18 10:19 10:19 10:19 WBC 6.9 RBC 3.02 L Hgb 8.6 L Hct 26.5 L MCV 87.6 MCH 28.5 MCHC 32.6 RDW 15.4 Plt Count 204 MPV 10.8 Absolute Neuts (auto) 5.1 Neutrophils % 73.3 Lymphocytes % 15.5 Monocytes % 7.7 Eosinophils % 2.5 Basophils % 1.0 Nucleated RBC % 0 PTT (Actin FS) 31.2 Sodium 136 Potassium 5.0 Chloride 102 Carbon Dioxide 27 Anion Gap 7 L BUN 29 H Creatinine 1.3 Est GFR (CKD-EPI)AfAm 48.47 Est GFR (CKD-EPI)NonAf 41.82 Random Glucose 250 H Calcium 8.7 Total Bilirubin 0.4 AST 11 L ALT 17 Alkaline Phosphatase 78 Creatine Kinase 73 Troponin I 0.09 H B-Natriuretic Peptide 1083.7 H Total Protein 6.6 Albumin 3.0 L Blood Type Antibody Screen Crossmatch 08/09/18 10:19 WBC RBC Hgb Hct MCV MCH MCHC RDW Plt Count MPV Absolute Neuts (auto) Neutrophils % Lymphocytes % Monocytes % Eosinophils % Basophils % Nucleated RBC % PTT (Actin FS) Sodium Potassium Chloride Carbon Dioxide Anion Gap BUN Creatinine Est GFR (CKD-EPI)AfAm Est GFR (CKD-EPI)NonAf Random Glucose Calcium Total Bilirubin AST ALT Alkaline Phosphatase Creatine Kinase Troponin I B-Natriuretic Peptide Total Protein Albumin Blood Type O POSITIVE Antibody Screen Negative Crossmatch See Detail Active Medications Generic Name Dose Route Start Last Admin Trade Name Freq PRN Reason Stop Dose Admin Albuterol/Ipratropium 1 amp 08/09/18 15:25 Duoneb - NEB Q6H PRN SHORTNESS OF BREATH Atorvastatin Calcium 40 mg 08/09/18 22:00 Lipitor - PO HS ALEE Furosemide 40 mg 08/09/18 15:30 Lasix - PO DAILY ALEE Insulin Aspart 55 units 08/09/18 16:30 Novolog Mix 70/30 Vial SQ BIDAC ALEE Insulin Aspart 1 vial 08/09/18 16:30 Novolog Vial Sliding Scale - SQ ACHS [facility] Protocol Mometasone Furoate 2 puff 08/10/18 10:00 Asmanex 220mcg - IH DAILY ALEE Pantoprazole Sodium 40 mg 08/10/18 10:00 Protonix - PO DAILY ALEE Ranitidine HCl 150 mg 08/10/18 10:00 Zantac - PO DAILY ALEE ASSESSMENT/PLAN: This is a 67 yo F with PMH of anemia requiring transfusions, HTN, HLD, CAD, [place], DM, and Asthma presenting with exertional dyspnea, found to have hgb 8.6, down from previously recorded 10. normocytic anemia HTN HLD CAD [place] DM Asthma -previous unrevealing gi workup (egd/colono, never had capsule) -f/u fe studies, hapto, retic, ldh -total protein/alb ratio wnl -f/u stool occult blood, ua -f/u light chains, spep upep -f/u b12, folate, esr -may need IV Fe Dispo: We will continue to follow the patient. Thank you for this consultative opportunity. Visit type - Emergency Visit Emergency Visit: Yes ED Registration Date: 08/09/18 Care time: The patient presented to the Emergency Department on the above date and was hospitalized for further evaluation of their emergent condition. - New Patient This patient is new to me today: Yes Date on this admission: 08/10/18 - Critical Care Critical Care patient: No
[2018-08-09] MEDS: FUROSEMIDE 40 MG TABLET (FP) PO SCH (15:47)
[2018-08-09] MEDS ORDERED: INSULIN SLIDING SCALE (NOVOLOG) 1 VIAL SQ SCH (16:30)
[2018-08-09] MEDS ORDERED: INSULIN (NOVOLOG MIX 70/30) 100 UNITS/ML MDV SQ ONE (16:42)
[2018-08-09] MEDS: INSULIN (NOVOLOG MIX 70/30) 100 UNITS/ML MDV SQ SCH ×2 (16:44→16:47)
--- NOTE | 2018-08-09 20:38 | CONSULT ---
Consult Consult Specialty:: endocrine Referred by:: dr.moizuddin iyer Reason for Consultation:: dm2 - History of Present Illness Chief Complaint: weak and short of breath History of Present Illness: 68 F,pmh dm2,ckd, anemia (requiring recent blood transfusions x 3). no obvious source of bleeding, hypertension,chf, hyperlipidemia, previous AMI, CAD, and asthma,has had weakness dyspnea,cough,chest heaviness,high sugars despite insulin multidoses,not following strict diet). - Past Medical History Cardio/Vascular: Yes: CAD (S/P STENTING), HTN, Hyperlipdemia. No: AFIB Pulmonary: Yes: Asthma, Bronchitis, Pneumonia, Sleep Apnea. No: COPD, O2 Dependent, Previously Intubated, Pulmonary Embolus, Pulmonary Fibrosis Gastrointestinal: Yes: GERD. No: Ascites Musculoskeletal: Yes: Osteoarthritis Endocrine: Yes: Diabetes Mellitus - Alcohol/Substance Use Hx Alcohol Use: No History of Substance Use: reports: None - Smoking History Smoking history: Never smoked Have you smoked in the past 12 months: No Aproximately how many cigarettes per day: 0 - Social History ADL: Family Assistance History of Recent Travel: No Home Medications - Allergies Allergies/Adverse Reactions: Allergies Allergy/AdvReac Type Severity Reaction Status Date / Time Penicillins Allergy Difficulty Verified 03/21/18 11:56 Breathing - Home Medications Home Medications: Ambulatory Orders Mometasone Furoate [Asmanex 220Mcg -] 2 inh IH DAILY PRN 08/02/12 Atorvastatin Ca [Lipitor] 40 mg PO HS #30 tablet 01/02/15 Furosemide [Lasix] 40 mg PO DAILY #30 tablet 03/23/18 Albuterol 2.5/Ipratropium 0.5 [Duoneb -] 1 amp NEB RQID amp 05/09/18 Aspirin Coated [Ecotrin -] 81 mg PO DAILY tablet.ec 05/09/18 Insulin (Levemir) [Levemir Vial] 50 units SQ BID units 05/09/18 Insulin (Novolog 70/30) [Novolog Mix 70/30 Vial -] 45 units SQ BIDAC units Pantoprazole Sodium [Protonix -] 20 mg PO HS #30 tablet.ec 05/09/18 Polyethylene Glycol 3350 [Miralax 119 gm Btl -] 17 gm PO BID bottle 05/09/18 Ranitidine [Zantac -] 150 mg PO DAILY #30 tablet 05/09/18 Family Disease History - Family Disease History Family Disease History: Diabetes: Mother, Sister Review of Systems - Review of Systems Constitutional: reports: Lethargy Eyes: reports: Blurred Vision HENT: reports: No Symptoms Neck: reports: No Symptoms Cardiovascular: reports: Shortness of Breath Respiratory: reports: Exercise Intolerance, Hemoptysis, Snoring, SOB, SOB on Exertion Gastrointestinal: reports: Constipation Breasts: reports: No Symptoms Reported Musculoskeletal: reports: Joint Pain, Joint Swelling, Muscle Pain, Muscle Weakness Neurological: reports: Numbness, Unsteady Gait Physical Exam Vital Signs: Vital Signs Temperature 98.3 F 08/09/18 19:35 Pulse Rate 78 08/09/18 19:35 Respiratory Rate 18 08/09/18 19:35 Blood Pressure 114/29 L 08/09/18 19:35 O2 Sat by Pulse Oximetry (%) 97 08/09/18 19:35 Constitutional: Yes: Anxious Eyes: Yes: EOM Intact HENT: Yes: Normocephalic Neck: Yes: WNL, Supple, Trachea Midline Cardiovascular: Yes: Tachycardia, Murmur Respiratory: Yes: Rales, Tachypnea Gastrointestinal: Yes: Normal Bowel Sounds ...Rectal Exam: Yes: Deferred Renal/: Yes: WNL Edema: Yes Edema: LLE: Trace, RLE: Trace Neurological: Yes: Alert, Oriented Labs: CBC, BMP 08/09/18 10:19 08/09/18 10:19 Problem List - Problems (1) DM2 (diabetes mellitus, type 2) Code(s): E11.9 - TYPE 2 DIABETES MELLITUS WITHOUT COMPLICATIONS (2) Shortness of breath Code(s): R06.02 - SHORTNESS OF BREATH (3) HORACE (acute kidney injury) Code(s): N17.9 - ACUTE KIDNEY FAILURE, UNSPECIFIED (4) Acute exacerbation of CHF (congestive heart failure) Code(s): I50.9 - HEART FAILURE, UNSPECIFIED Qualifiers: Heart failure type: unspecified Qualified Code(s): I50.9 - Heart failure, unspecified (5) Acute hypoxemic respiratory failure Code(s): J96.01 - ACUTE RESPIRATORY FAILURE WITH HYPOXIA (6) Anemia Code(s): D64.9 - ANEMIA, UNSPECIFIED Qualifiers: (7) Atypical chest pain Code(s): R07.89 - OTHER CHEST PAIN Assessment/Plan Current Active Problems DM NEUROPATHY HTN HLD COPD,TERENCE MORBID OBESITY CAD ANGINA Shortness of breath (Acute) Abnormal Lab Results 08/09/18 08/09/18 08/09/18 10:19 10:19 10:19 RBC 3.02 L Hgb 8.6 L Hct 26.5 L Anion Gap 7 L BUN 29 H Random Glucose 250 H AST 11 L Troponin I 0.09 H B-Natriuretic Peptide 1083.7 H Albumin 3.0 L Crossmatch See Detail Laboratory Results - last 24 hr 08/09/18 08/09/18 08/09/18 10: 10:19 10:19 WBC 6.9 RBC 3.02 L Hgb 8.6 L Hct 26.5 L MCV 87.6 MCH 28.5 MCHC 32.6 RDW 15.4 Plt Count 204 MPV 10.8 Absolute Neuts (auto) 5.1 Neutrophils % 73.3 Lymphocytes % 15.5 Monocytes % 7.7 Eosinophils % 2.5 Basophils % 1.0 Nucleated RBC % 0 PTT (Actin FS) 31.2 Sodium 136 Potassium 5.0 Chloride 102 Carbon Dioxide 27 Anion Gap 7 L BUN 29 H Creatinine 1.3 Est GFR (CKD-EPI)AfAm 48.47 Est GFR (CKD-EPI)NonAf 41.82 POC Glucometer Random Glucose 250 H Calcium 8.7 Total Bilirubin 0.4 AST 11 L ALT 17 Alkaline Phosphatase 78 Creatine Kinase 73 Troponin I 0.09 H B-Natriuretic Peptide 1083.7 H Total Protein 6.6 Albumin 3.0 L Blood Type Antibody Screen Crossmatch 08/09/18 08/09/18 10:19 16:36 WBC RBC Hgb Hct MCV MCH MCHC RDW Plt Count MPV Absolute Neuts (auto) Neutrophils % Lymphocytes % Monocytes % Eosinophils % Basophils % Nucleated RBC % PTT (Actin FS) Sodium Potassium Chloride Carbon Dioxide Anion Gap BUN Creatinine Est GFR (CKD-EPI)AfAm Est GFR (CKD-EPI)NonAf POC Glucometer 231 Random Glucose Calcium Total Bilirubin AST ALT Alkaline Phosphatase Creatine Kinase Troponin I B-Natriuretic Peptide Total Protein Albumin Blood Type O POSITIVE Antibody Screen Negative Crossmatch See Detail PLAN: BGM QID NOVOLOG INSULIN BID NOVOLOG 70/30 DOSES 55 U BID HBA1C HEME CONSULT GI CONSULT
[2018-08-09] MEDS ORDERED: ACETAMINOPHEN 325 MG TABLET (FP) PO PRN (21:09)
[2018-08-09 21:57] LABS: EPI CELLS 1.2 /HPF (0-5/HPF); HYALINE CASTS 2 /lpf (0-8); URINE APPEARANCE CLEAR; URINE BACTERIA 24.2 /hpf (NEGATIVE); URINE BILIRUBIN NEGATIVE (NEGATIVE); URINE COLOR YELLOW; URINE GLUCOSE (UA) NEGATIVE (NEGATIVE); URINE KETONE NEGATIVE (NEGATIVE); URINE LEUK ESTERASE 2+ (NEGATIVE); URINE NITRITE NEGATIVE (NEGATIVE); URINE PROTEIN TRACE (NEGATIVE); URINE RBC 1 /hpf (0-4); URINE UROBILINOGEN 0.2 mg/dL (0.2-1.0); URINE WBC 40 /hpf (0-5)
[2018-08-09] MEDS ORDERED: INSULIN (LEVEMIR) 100 UNITS/ML UNITS SQ SCH (22:00)
[2018-08-09] MEDS ORDERED: ATORVASTATIN CA 40 MG TABLET (FP) PO SCH (22:00)
[2018-08-09] MEDS: methylPREDNISolone NA SUCC 40 MG/1 ML VIAL IVPUSH SCH (22:05)
[2018-08-09] MEDS: HYDROCORTISONE 2.5% TOPICAL CREAM 30 GM TUBE TP SCH (22:14)
[2018-08-09] MEDS: ATORVASTATIN CA 80 MG TABLET (FP) PO SCH (22:15)
[2018-08-09] MEDS: INSULIN SLIDING SCALE (NOVOLOG) 1 VIAL SQ SCH (22:15)
[2018-08-09 22:42] VITALS: BMI 46.8
--- NOTE | 2018-08-09 23:09 | PN ---
Teaching Attending Note Name of Resident: Sunita Patel ATTENDING PHYSICIAN STATEMENT I saw and evaluated the patient. I reviewed the resident's note and discussed the case with the resident. I agree with the resident's findings and plan as documented. ASSESSMENT AND PLAN: 68 y/o patient with CAD, s/p stents > 1yr. ago, on plavix, recurrent anemia await iron studies and dose iv iron GI w/u wih capsule endoscopy as utpatient check other screening tests for anemia
[2018-08-10 01:10] LABS: HEMATOCRIT 28.6 % (32.4-45.2); HEMOGLOBIN 9.5 GM/dL (10.7-15.3); MCH 28.3 pg (25.7-33.7); MCHC 33.1 g/dl (32.0-36.0); MEAN CELL VOLUME 85.5 fl (80-96); MEAN PLT VOLUME 11.1 fl (7.5-11.1); PLATELET COUNT 205 K/MM3 (134-434); RBC 3.35 M/mm3 (3.60-5.2)
[2018-08-10] MEDS: INSULIN SLIDING SCALE (NOVOLOG) 1 VIAL SQ SCH ×6 (01:28→22:04)
[2018-08-10 01:34] LABS: CREATININE 1.3 mg/dL (0.55-1.3)
[2018-08-10] MEDS: INSULIN (NOVOLOG MIX 70/30) 100 UNITS/ML MDV SQ SCH ×2 (06:24→17:23)
[2018-08-10 06:39] LABS: BASO % 0.2 % (0-2.0); HEMATOCRIT 28.7 % (32.4-45.2); HEMOGLOBIN 9.4 GM/dL (10.7-15.3); LYMPH % 10.9 % (8-40); MCHC 32.7 g/dl (32.0-36.0); MEAN CELL VOLUME 85.5 fl (80-96); MEAN PLT VOLUME 10.3 fl (7.5-11.1); NEUT % 87.9 % (42.8-82.8); PLATELET COUNT 218 K/MM3 (134-434); RBC 3.36 M/mm3 (3.60-5.2); RDW 17.2 % (11.6-15.6); WHITE BLOOD COUNT 6.1 K/mm3 (4.0-10.0)
[2018-08-10 07:32] LABS: ALBUMIN 3.1 g/dl (3.4-5.0); BILIRUBIN,TOTAL 0.5 mg/dL (0.2-1); CALCIUM 9.1 mg/dL (8.5-10.1); CREATININE 1.4 mg/dL (0.55-1.3); MAGNESIUM 2.4 mg/dL (1.8-2.4); PHOSPHOROUS 4.3 mg/dL (2.5-4.9); POTASSIUM 5.2 mmol/L (3.5-5.1); TOT PROT 6.8 g/dl (6.4-8.2)
--- NOTE | 2018-08-10 07:45 | CON.GI ---
Consult Consult Specialty:: GI Referred by:: Dr. Jen Collins Reason for Consultation:: Anemia - History of Present Illness History of Present Illness: Patient is a 68 y/o female with past medical history of HTN, HLD, CAD, [place], DM, Anemia, Asthma. I was consulted to see patient for Anemia. Patient presented to ER with Hg 8.6. She received 1U PRBC transfusion and now most recent Hg is 9.4. Endoscopy and Colonoscopy performed in 06/11 showed diminuitive polyp in ascending colon and no significant finding on EGD. Patient has long standing use of Plavix due to CAD. Last consult patient was instructed to have video capsuly done at [facility] but was unable to follow through due to transportation issues. Patient complains of nausea but denies vomiting, abdominal pain. Denies diarrhea, constipation, blood in stool, or melena. - History Source History Provided By: Patient Limitations to Obtaining History: No Limitations - Past Medical History Cardio/Vascular: Yes: CAD (S/P STENTING), HTN, Hyperlipdemia. No: AFIB Pulmonary: Yes: Asthma, Bronchitis, Pneumonia, Sleep Apnea. No: COPD, O2 Dependent, Previously Intubated, Pulmonary Embolus, Pulmonary Fibrosis Gastrointestinal: Yes: GERD. No: Ascites Musculoskeletal: Yes: Osteoarthritis Endocrine: Yes: Diabetes Mellitus - Alcohol/Substance Use Hx Alcohol Use: No History of Substance Use: reports: None - Smoking History Smoking history: Never smoked Have you smoked in the past 12 months: No Aproximately how many cigarettes per day: 0 - Social History ADL: Family Assistance History of Recent Travel: No Home Medications - Allergies Allergies/Adverse Reactions: Allergies Allergy/AdvReac Type Severity Reaction Status Date / Time Penicillins Allergy Difficulty Verified 03/21/18 11:56 Breathing - Home Medications Home Medications: Ambulatory Orders Atorvastatin Ca [Lipitor] 80 mg PO HS 08/09/18 Clopidogrel Bisulfate [Plavix] 75 mg PO DAILY 08/09/18 Ferrous Sulfate 325 mg PO DAILY 08/09/18 Furosemide [Lasix] 40 mg PO BID 08/09/18 Insulin (Levemir) [Levemir Vial] 10 units SQ BID 08/09/18 Insulin (Novolog 70/30) [Novolog Mix 70/30 Vial -] 30 units SQ BIDAC 08/09/18 Linaclotide [Linzess] 145 mcg PO DAILY 08/09/18 Family Disease History - Family Disease History Family Disease History: Diabetes: Mother, Sister Review of Systems - Review of Systems Constitutional: reports: No Symptoms Eyes: reports: No Symptoms HENT: reports: No Symptoms Neck: reports: No Symptoms Cardiovascular: reports: No Symptoms Respiratory: reports: No Symptoms Gastrointestinal: reports: Nausea Genitourinary: reports: No Symptoms Breasts: reports: No Symptoms Reported Musculoskeletal: reports: No Symptoms Integumentary: reports: No Symptoms Neurological: reports: No Symptoms Endocrine: reports: No Symptoms Hematology/Lymphatic: reports: No Symptoms Psychiatric: reports: No Symptoms Physical Exam-GI Vital Signs: Vital Signs Temperature 69 F L 08/10/18 06:00 Pulse Rate 69 08/10/18 06:00 Respiratory Rate 18 08/10/18 06:00 Blood Pressure 138/55 L 08/10/18 06:00 O2 Sat by Pulse Oximetry (%) 95 08/09/18 23:11 Constitutional: Yes: No Distress, Calm Eyes: Yes: Conjunctiva Clear HENT: Yes: Atraumatic Cardiovascular: Yes: Regular Rate and Rhythm Respiratory: Yes: Regular, CTA Bilaterally Gastrointestinal Inspection: Yes: WNL. No: Ascites, Distention, Hernia, Scars, Other ...Auscultate: Yes: Normoactive Bowel Sounds. No: Hyperactive Bowel Sounds, Hypoactive Bowel Sounds, No Bowel Sounds, Other ...Palpate: Yes: Soft. No: Firm/Rigid, Guarding, Hepatomegaly, Mass, Pulsatile Mass, Splenomegaly, Tenderness, Tenderness, Epigastium, Tenderness, Rebound, Other ...Percussion: Yes: Tympanitic. No: Dullness, Fluid Wave, Other Neurological: Yes: Alert, Oriented Psychiatric: Yes: Alert, Oriented Labs: CBC, BMP 08/10/18 06:00 08/10/18 06:00 Active Medications Generic Name Dose Route Start Last Admin Trade Name Freq PRN Reason Stop Dose Admin Acetaminophen 650 mg 08/09/18 21:09 Tylenol - PO Q4H PRN PAIN LEVEL 1-5 Albuterol/Ipratropium 1 amp 08/09/18 15:25 Duoneb - NEB Q6H PRN SHORTNESS OF BREATH Atorvastatin Calcium 80 mg 08/09/18 22:15 08/09/18 22:15 Lipitor - PO 80 mg HS ALEE Administration Furosemide 40 mg 08/09/18 15:30 08/09/18 15:47 Lasix - PO 40 mg DAILY ALEE Administration Hydrocortisone 1 applic 08/09/18 22:00 08/09/18 22:14 Anusol 2.5% Hc Cream - TP Not Given BID ALEE Insulin Aspart 1 vial 08/09/18 22:00 08/10/18 06:24 Novolog Vial Sliding Scale - SQ 8 units Q4HPO ALEE Administration Protocol Insulin Aspart 30 units 08/09/18 21:18 08/10/18 06:24 Novolog Mix 70/30 Vial SQ 30 units BIDAC ALEE Administration Methylprednisolone Sodium Succinate 40 mg 08/09/18 22:00 08/09/18 22:05 Solu-Medrol - IVPUSH 40 mg BID ALEE Administration Mometasone Furoate 2 puff 08/10/18 10:00 Asmanex 220mcg - IH DAILY ALEE Pantoprazole Sodium 40 mg 08/10/18 10:00 Protonix - PO DAILY [facility] Ranitidine HCl 150 mg 08/10/18 10:00 Zantac - PO DAILY [facility] Problem List - Problems (1) Anemia Assessment/Plan: R> anemia secondary to chronic plavix use >CT enterography when BUN/Cr improves and shows downtrend >monitor Hg >transfuse if Hg <7.0 to avoid fluid overload Code(s): D64.9 - ANEMIA, UNSPECIFIED Qualifiers:
[2018-08-10 09:37] LABS: EPI CELLS 1.9 /HPF (0-5/HPF); HYALINE CASTS 2 /lpf (0-8); PH,URINE 5.5 (5.0-8.0); URINE APPEARANCE CLEAR; URINE BACTERIA 162.1 /hpf (NEGATIVE); URINE BILIRUBIN NEGATIVE (NEGATIVE); URINE COLOR YELLOW; URINE GLUCOSE (UA) 2+ (NEGATIVE); URINE KETONE NEGATIVE (NEGATIVE); URINE LEUK ESTERASE 1+ (NEGATIVE); URINE NITRITE NEGATIVE (NEGATIVE); URINE PROTEIN 2+ (NEGATIVE); URINE RBC 1 /hpf (0-4); URINE UROBILINOGEN 0.2 mg/dL (0.2-1.0); URINE WBC 29 /hpf (0-5)
[2018-08-10] MEDS: methylPREDNISolone NA SUCC 40 MG/1 ML VIAL IVPUSH SCH ×2 (10:02→22:00)
[2018-08-10] MEDS: FUROSEMIDE 40 MG TABLET (FP) PO SCH (10:02)
[2018-08-10] MEDS: RANITIDINE HCL 150 MG TABLET (FP) PO SCH (10:02)
[2018-08-10] MEDS: HYDROCORTISONE 2.5% TOPICAL CREAM 30 GM TUBE TP SCH ×2 (10:03→22:05)
[2018-08-10] MEDS: MOMETASONE FUROATE 220 MCG/IH INHALER IH SCH (10:03)
[2018-08-10] MEDS: PANTOPRAZOLE 40 MG TABLET (FP) PO SCH (10:03)
[2018-08-10] MEDS ORDERED: SODIUM POLYSTYRENE SULFONATE 15 GM/60 ML BOTTLE PO ONE (11:41)
--- NOTE | 2018-08-10 11:45 | DS ---
Physical Examination Vital Signs: Vital Signs Temperature 98.1 F 08/10/18 10:00 Pulse Rate 71 08/10/18 10:00 Respiratory Rate 18 08/10/18 10:00 Blood Pressure 126/55 L 08/10/18 10:00 O2 Sat by Pulse Oximetry (%) 95 08/10/18 10:00 Constitutional: Yes: Calm Cardiovascular: Yes: Regular Rate and Rhythm, S1, S2 Respiratory: Yes: CTA Bilaterally Gastrointestinal: Yes: Normal Bowel Sounds, Soft Neurological: Yes: Alert, Oriented Labs: CBC, BMP 08/10/18 06:00 08/10/18 06:00 Discharge Summary Reason For Visit: SHORTNESS OF BREATH Current Active Problems DM2 (diabetes mellitus, type 2) (Acute) Shortness of breath (Acute) Hospital Course: Primary Care Physician PCP: Gwen Jacobson - Admission Chief Complaint: came in for dizziness and weakness VASQUEZ History of Present Illness: This is a 67 y/o woman with a PMHx of HTN, HLD, CAD, SC, DM, Anemia( requiring transfusion) Asthma. came in with VASQUEZ, weakness and feeling tired per patient she walk to bathroom and back gets short of pain and chest discomfort, in ER h/h drop to 8 from 10 patient has required transfusion for anemia in past . patient admitted to telemetry seen by endocrine as well for insulin bid got prbc h/h improved and weakness improved-seen by heme to FU with GI as outpatient potassium elevated kayxelate ordered IV steroid bid will change to prednisone quick taper- seen by pulm Condition: Improved - Instructions Referrals: Thai Alvarado MD [Staff Physician] - 2 Weeks (for capsule endoscopy) Disposition: HOME - Home Medications Comprehensive Discharge Medication List: Ambulatory Orders Atorvastatin Ca [Lipitor] 80 mg PO HS 08/09/18 Clopidogrel Bisulfate [Plavix] 75 mg PO DAILY 08/09/18 Ferrous Sulfate 325 mg PO DAILY 08/09/18 Furosemide [Lasix] 40 mg PO BID 08/09/18 Insulin (Levemir) [Levemir Vial] 10 units SQ BID 08/09/18 Insulin (Novolog 70/30) [Novolog Mix 70/30 Vial -] 30 units SQ BIDAC 08/09/18 Linaclotide [Linzess] 145 mcg PO DAILY 08/09/18
[2018-08-10] MEDS ORDERED: IRON SUCROSE INJECTION 200 MG in SODIUM CHLORIDE 90 ML IVPB ONE (11:50)
--- NOTE | 2018-08-10 11:51 | PN ---
Progress Note (short form) - Note Progress Note: will give venofer one dose meclizine prn for dizziness- currently not dizzy prednsone quick taper outpatient FU with GI for capsule endoscopy Problem List - Problems (1) Shortness of breath Code(s): R06.02 - SHORTNESS OF BREATH (2) Anemia Code(s): D64.9 - ANEMIA, UNSPECIFIED Qualifiers: (3) Diabetes 1.5, managed as type 2 Code(s): E10.9 - TYPE 1 DIABETES MELLITUS WITHOUT COMPLICATIONS (4) HLD (hyperlipidemia) Code(s): E78.5 - HYPERLIPIDEMIA, UNSPECIFIED
--- NOTE | 2018-08-10 13:11 | ECHO ---
Name: CARLOS ARCINIEGA Exam:Adult Echocardiogram Study Date: 08/10/2018 11:41 AM Age: 68 yrs Reason For Study: Ejection Fraction Height: 66 in Weight: 240 lb BSA: 2.2 m2 MMode/2D Measurements & Calculations IVSd: 0.95 cm Ao root diam: 3.0 cm LVIDd: 5.2 cm LVPWd: 1.0 cm EDV(Teich): 132.4 ml LVOT diam: 1.6 cm RV S Hitesh: 13.3 cm/sec Doppler Measurements & Calculations MV E max hitesh: 129.3 cm/sec Ao V2 max: 209.3 cm/sec MV A max hitesh: 98.7 cm/sec Ao max P.5 mmHg MV E/A: 1.3 Ao V2 mean: 154.9 cm/sec MV dec time: 0.28 sec Ao mean P.5 mmHg Ao V2 VTI: 49.3 cm SILAS(I,D): 1.1 cm2 SILAS(V,D): 1.1 cm2 LV V1 max P.3 mmHg SV(LVOT): 54.0 ml LV V1 mean P.0 mmHg LV V1 max: 115.0 cm/sec LV V1 mean: 79.9 cm/sec LV V1 VTI: 26.2 cm PA V2 max: 131.0 cm/sec Med Peak E' Hitesh: 4.6 cm/sec PA max P.9 mmHg Med E/e': 28.2 Lat Peak E' Hitesh: 5.7 cm/sec Lat E/e': 22.9 Left Ventricle Left ventricular systolic function is normal. Ejection Fraction = 50-55%. Right Ventricle The right ventricle is grossly normal size. The right ventricular systolic function is grossly normal . Atria Normal left and right atrial size and function. Mitral Valve There is mild mitral annular calcification. There is no mitral valve stenosis. There is mild mitral regurgitation. Tricuspid Valve The tricuspid valve is normal in structure and function. There is mild tricuspid regurgitation. Aortic Valve The aortic valve opens well. No hemodynamically significant valvular aortic stenosis. No aortic regur gitation is present. Pulmonic Valve The pulmonic valve is not well seen, but is grossly normal. There is no pulmonic valvular stenosis. Great Vessels The aortic root is normal size. Pericardium/Pleura There is no pericardial effusion. Interpretation Summary Left ventricular systolic function is normal. Ejection Fraction = 50-55%. There is mild mitral annular calcification. There is mild mitral regurgitation. There is mild tricuspid regurgitation. There is no pericardial effusion. MD Cartagena *Bettye 08/10/2018 01:11 PM
--- NOTE | 2018-08-10 13:39 | EKG ---
Test Reason : Blood Pressure : / mmHG Vent. Rate : 073 BPM Atrial Rate : 073 BPM P-R Int : 170 ms QRS Dur : 116 ms QT Int : 422 ms P-R-T Axes : 056 -40 104 degrees QTc Int : 464 ms NORMAL SINUS RHYTHM LEFT AXIS DEVIATION LEFT VENTRICULAR HYPERTROPHY WITH QRS WIDENING AND REPOLARIZATION ABNORMALITY ABNORMAL ECG WHEN COMPARED WITH ECG OF 09-AUG-2018 16:30, CRITERIA FOR SEPTAL INFARCT ARE NO LONGER PRESENT Confirmed by JAMES VERA MD ([id number]) on 08/10/2018 1:39:14 PM Referred By: JAKOB ROWAN Confirmed By:JAMES VREA MD
--- NOTE | 2018-08-10 14:28 | PN ---
Physical Exam: SUBJECTIVE: Patient seen and examined resting in bed nad, afebrile hemodynamically stable. no acute events. denies abd pain, n/v/d/c, cp, sob, dizziness, bleeding OBJECTIVE: Vital Signs Period Temp Pulse Resp BP Sys/Lee Pulse Ox Last 24 Hr 97.7 F-98.4 F 67-78 18-18 114-156/29-74 95-97 GENERAL: Awake, alert, and fully oriented, in no acute distress. HEAD: Normal with no signs of trauma. EYES: extraocular movements intact, sclera anicteric, conjunctiva clear. No lid lag. EARS, NOSE, THROAT: Moist mucous membranes. NECK: supple LUNGS: Breath sounds equal, clear to auscultation bilaterally HEART: Regular rate and rhythm, normal S1 and S2 ABDOMEN: Soft, nontender, not distended, normoactive bowel sounds MUSCULOSKELETAL: No CVA tenderness. SKIN: Warm, dry, normal turgor, no rashes or lesions noted. Laboratory Results - last 24 hr 08/09/18 08/09/18 08/09/18 10:19 16:36 21:00 WBC RBC Hgb Hct MCV MCH MCHC RDW Plt Count MPV Absolute Neuts (auto) Neutrophils % Lymphocytes % Monocytes % Eosinophils % Basophils % Nucleated RBC % ESR Retic Count Sodium Potassium Chloride Carbon Dioxide Anion Gap BUN Creatinine Est GFR (CKD-EPI)AfAm Est GFR (CKD-EPI)NonAf POC Glucometer 231 226 Random Glucose Calcium Phosphorus Magnesium Ferritin Total Bilirubin AST ALT Alkaline Phosphatase LD Total Troponin I Total Protein Albumin Vitamin B12 TSH Urine Color Urine Appearance Urine pH Ur Specific [place] Urine Protein Urine Glucose (UA) Urine Ketones Urine Blood Urine Nitrite Urine Bilirubin Urine Urobilinogen Ur Leukocyte Esterase Urine WBC (Auto) Urine RBC (Auto) Urine Casts (Auto) U Epithel Cells (Auto) Urine Bacteria (Auto) Blood Type O POSITIVE Antibody Screen Negative Crossmatch See Detail Transfuse React Work-up 08/09/18 08/10/18 08/10/18 21:42 00:15 00:15 WBC 8.0 RBC 3.35 L Hgb 9.5 L Hct 28.6 L MCV 85.5 MCH 28.3 MCHC 33.1 RDW 17.0 H Plt Count 205 MPV 11.1 Absolute Neuts (auto) Neutrophils % Lymphocytes % Monocytes % Eosinophils % Basophils % Nucleated RBC % ESR Retic Count Sodium Potassium Chloride Carbon Dioxide Anion Gap BUN Creatinine Est GFR (CKD-EPI)AfAm Est GFR (CKD-EPI)NonAf POC Glucometer Random Glucose Calcium Phosphorus Magnesium Ferritin Total Bilirubin AST ALT Alkaline Phosphatase LD Total Troponin I Total Protein Albumin Vitamin B12 TSH Urine Color Yellow Urine Appearance Clear Urine pH 6.0 Ur Specific [place] 1.007 L Urine Protein Trace Urine Glucose (UA) Negative Urine Ketones Negative Urine Blood Negative Urine Nitrite Negative Urine Bilirubin Negative Urine Urobilinogen 0.2 Ur Leukocyte Esterase 2+ H Urine WBC (Auto) 40 Urine RBC (Auto) 1 Urine Casts (Auto) 2 U Epithel Cells (Auto) 1.2 Urine Bacteria (Auto) 24.2 Blood Type Antibody Screen Crossmatch Transfuse React Work-up See comment 08/10/18 08/10/18 08/10/18 00:15 01:24 06:00 WBC 6.1 RBC 3.36 L Hgb 9.4 L Hct 28.7 L MCV 85.5 MCH 28.0 MCHC 32.7 RDW 17.2 H Plt Count 218 MPV 10.3 Absolute Neuts (auto) 5.4 Neutrophils % 87.9 H Lymphocytes % 10.9 D Monocytes % 1.0 L D Eosinophils % 0.0 D Basophils % 0.2 Nucleated RBC % 0 ESR Retic Count Sodium Potassium Chloride Carbon Dioxide Anion Gap BUN 32 H Creatinine 1.3 Est GFR (CKD-EPI)AfAm Est GFR (CKD-EPI)NonAf POC Glucometer 257 Random Glucose Calcium Phosphorus Magnesium Ferritin Total Bilirubin AST ALT Alkaline Phosphatase LD Total Troponin I Total Protein Albumin Vitamin B12 TSH Urine Color Urine Appearance Urine pH Ur Specific [place] Urine Protein Urine Glucose (UA) Urine Ketones Urine Blood Urine Nitrite Urine Bilirubin Urine Urobilinogen Ur Leukocyte Esterase Urine WBC (Auto) Urine RBC (Auto) Urine Casts (Auto) U Epithel Cells (Auto) Urine Bacteria (Auto) Blood Type Antibody Screen Crossmatch Transfuse React Work-up 08/10/18 08/10/18 08/10/18 06:00 06:00 06:00 WBC RBC Hgb Hct MCV MCH MCHC RDW Plt Count MPV Absolute Neuts (auto) Neutrophils % Lymphocytes % Monocytes % Eosinophils % Basophils % Nucleated RBC % ESR Retic Count 1.85 H Sodium 135 L Potassium 5.2 H Chloride 101 Carbon Dioxide 26 Anion Gap 8 BUN 33 H Creatinine 1.4 H Est GFR (CKD-EPI)AfAm 44.32 Est GFR (CKD-EPI)NonAf 38.24 POC Glucometer Random Glucose 353 H* Calcium 9.1 Phosphorus 4.3 Magnesium 2.4 Ferritin 98.3 Total Bilirubin 0.5 AST 7 L ALT 16 Alkaline Phosphatase 76 LD Total 179 Troponin I 0.06 H Total Protein 6.8 Albumin 3.1 L Vitamin B12 TSH 0.57 Urine Color Urine Appearance Urine pH Ur Specific [place] Urine Protein Urine Glucose (UA) Urine Ketones Urine Blood Urine Nitrite Urine Bilirubin Urine Urobilinogen Ur Leukocyte Esterase Urine WBC (Auto) Urine RBC (Auto) Urine Casts (Auto) U Epithel Cells (Auto) Urine Bacteria (Auto) Blood Type Antibody Screen Crossmatch Transfuse React Work-up 08/10/18 08/10/18 08/10/18 06:00 06:00 06:18 WBC RBC Hgb Hct MCV MCH MCHC RDW Plt Count MPV Absolute Neuts (auto) Neutrophils % Lymphocytes % Monocytes % Eosinophils % Basophils % Nucleated RBC % ESR 90 H Retic Count Sodium Potassium Chloride Carbon Dioxide Anion Gap BUN Creatinine Est GFR (CKD-EPI)AfAm Est GFR (CKD-EPI)NonAf POC Glucometer 329 Random Glucose Calcium Phosphorus Magnesium Ferritin Total Bilirubin AST ALT Alkaline Phosphatase LD Total Troponin I Total Protein Albumin Vitamin B12 565 TSH Urine Color Urine Appearance Urine pH Ur Specific [place] Urine Protein Urine Glucose (UA) Urine Ketones Urine Blood Urine Nitrite Urine Bilirubin Urine Urobilinogen Ur Leukocyte Esterase Urine WBC (Auto) Urine RBC (Auto) Urine Casts (Auto) U Epithel Cells (Auto) Urine Bacteria (Auto) Blood Type Antibody Screen Crossmatch Transfuse React Work-up 08/10/18 08/10/18 08/10/18 09:15 10:05 13:59 WBC RBC Hgb Hct MCV MCH MCHC RDW Plt Count MPV Absolute Neuts (auto) Neutrophils % Lymphocytes % Monocytes % Eosinophils % Basophils % Nucleated RBC % ESR Retic Count Sodium Potassium Chloride Carbon Dioxide Anion Gap BUN Creatinine Est GFR (CKD-EPI)AfAm Est GFR (CKD-EPI)NonAf POC Glucometer 296 343 Random Glucose Calcium Phosphorus Magnesium Ferritin Total Bilirubin AST ALT Alkaline Phosphatase LD Total Troponin I Total Protein Albumin Vitamin B12 TSH Urine Color Yellow Urine Appearance Clear Urine pH 5.5 Ur Specific [place] 1.013 Urine Protein 2+ H Urine Glucose (UA) 2+ H Urine Ketones Negative Urine Blood Trace Urine Nitrite Negative Urine Bilirubin Negative Urine Urobilinogen 0.2 Ur Leukocyte Esterase 1+ H Urine WBC (Auto) 29 Urine RBC (Auto) 1 Urine Casts (Auto) 2 U Epithel Cells (Auto) 1.9 Urine Bacteria (Auto) 162.1 Blood Type Antibody Screen Crossmatch Transfuse React Work-up Active Medications Generic Name Dose Route Start Last Admin Trade Name Freq PRN Reason Stop Dose Admin Acetaminophen 650 mg 08/09/18 21:09 Tylenol - PO Q4H PRN PAIN LEVEL 1-5 Albuterol/Ipratropium 1 amp 08/09/18 15:25 Duoneb - NEB Q6H PRN SHORTNESS OF BREATH Atorvastatin Calcium 80 mg 08/09/18 22:15 08/09/18 22:15 Lipitor - PO 80 mg HS ALEE Administration Furosemide 40 mg 08/09/18 15:30 08/10/18 10:02 Lasix - PO 40 mg DAILY ALEE Administration Hydrocortisone 1 applic 08/09/18 22:00 08/10/18 10:03 Anusol 2.5% Hc Cream - TP Not Given BID ALEE Insulin Aspart 1 vial 08/09/18 22:00 08/10/18 14:02 Novolog Vial Sliding Scale - SQ 8 units Q4HPO ALEE Administration Protocol Insulin Aspart 30 units 08/09/18 21:18 08/10/18 06:24 Novolog Mix 70/30 Vial SQ 30 units BIDAC ALEE Administration Methylprednisolone Sodium Succinate 40 mg 08/09/18 22:00 08/10/18 10:02 Solu-Medrol - IVPUSH 40 mg BID ALEE Administration Mometasone Furoate 2 puff 08/10/18 10:00 08/10/18 10:03 Asmanex 220mcg - IH Not Given DAILY ALEE Pantoprazole Sodium 40 mg 08/10/18 10:00 08/10/18 10:03 Protonix - PO Not Given DAILY ALEE Ranitidine HCl 150 mg 08/10/18 10:00 08/10/18 10:02 Zantac - PO Not Given DAILY ALEE ASSESSMENT/PLAN: This is a 67 yo F with PMH of anemia requiring transfusions, HTN, HLD, CAD, DC, DM, and Asthma presenting with exertional dyspnea, found to have hgb 8.6, down from previously recorded 10. normocytic anemia HTN HLD CAD DC DM Asthma -previous unrevealing gi workup (egd/colono, never had capsule) -f/u fe studies, hapto, retic, ldh -total protein/alb ratio wnl -f/u stool occult blood, -ua trace blood -f/u light chains, spep upep -b12 tsh wnl -LD 179, hapto p/d, retic 1.85 -f/u folate, esr -may need IV Fe Dispo: We will continue to follow the patient. Thank you for this consultative opportunity.
--- NOTE | 2018-08-10 14:46 | EKG ---
Test Reason : Blood Pressure : / mmHG Vent. Rate : 075 BPM Atrial Rate : 075 BPM P-R Int : 178 ms QRS Dur : 110 ms QT Int : 408 ms P-R-T Axes : 061 -47 097 degrees QTc Int : 455 ms NORMAL SINUS RHYTHM LEFT ANTERIOR FASCICULAR BLOCK SEPTAL INFARCT , AGE UNDETERMINED NONSPECIFIC T WAVE ABNORMALITY Confirmed by JAMES VERA MD ([id number]) on 08/10/2018 2:45:44 PM Referred By: Confirmed By:JAMES VERA MD
--- NOTE | 2018-08-10 15:25 | PN ---
Progress Note, Physician Chief Complaint: The patient complains of dizziness and weakness. She reports no chest pain, shortness of breath, palpitation or dizziness. Telemetry reviewed, it showed sinus rhythm with rare APCs. History of Present Illness: 68 year-old woman with a PMHx of HTN, DM-II, HLD, CAD, s/p mid LAD PCI with RADU on 05/02/2017, anemia (requiring recent blood transfusions x 3), no obvious source of bleeding, OSAS (not currently on treatment), and asthma presented to ED 08/09/2018 due to generalized weakness, dizziness, and shortness of breath with minimal exertion. She has occasional short lasting sharp chest pain. CXR: cardiomegaly without acute pathology. Seen by Dr. Amaro, "Do not suspect AE of Asthma or overt Respiratory illness. Suspect symptoms related to anemia and weight" BNP is mildly elevated. Troponin 0.09. Severe anemia noted. ECG 08/09/2018 showed sinus rhythm at 87 BPM, LAD, LVH with I and aVL T inversion , no change from 05/04/2018. No repeat ECG no changes. Repeat echocardiogram 08/10/2018: Normal LV size with normal wall motion and systolic function. LVEF = 50-55%. Normal RV. Normal LA and RA in size. Mild MR and mild TR - Current Medication List Current Medications: Active Medications Acetaminophen (Tylenol -) 650 mg PO Q4H PRN PRN Reason: PAIN LEVEL 1-5 Albuterol/Ipratropium (Duoneb -) 1 amp NEB Q6H PRN PRN Reason: SHORTNESS OF BREATH Atorvastatin Calcium (Lipitor -) 80 mg PO HS [facility] Last Admin: 08/09/18 22:15 Dose: 80 mg Furosemide (Lasix -) 40 mg PO DAILY [facility] Last Admin: 08/10/18 10:02 Dose: 40 mg Hydrocortisone (Anusol 2.5% Hc Cream -) 1 applic TP BID [facility] Last Admin: 08/10/18 10:03 Dose: Not Given Insulin Aspart (Novolog Vial Sliding Scale -) 1 vial SQ Q4HPO [facility]; Protocol Last Admin: 08/10/18 14:02 Dose: 8 units Insulin Aspart (Novolog Mix 70/30 Vial) 30 units SQ BIDAC [facility] Last Admin: 08/10/18 06:24 Dose: 30 units Methylprednisolone Sodium Succinate (Solu-Medrol -) 40 mg IVPUSH BID [facility] Last Admin: 08/10/18 10:02 Dose: 40 mg Mometasone Furoate (Asmanex 220mcg -) 2 puff IH DAILY [facility] Last Admin: 08/10/18 10:03 Dose: Not Given Pantoprazole Sodium (Protonix -) 40 mg PO DAILY [facility] Last Admin: 08/10/18 10:03 Dose: Not Given Ranitidine HCl (Zantac -) 150 mg PO DAILY [facility] Last Admin: 08/10/18 10:02 Dose: Not Given - Objective Vital Signs: Vital Signs Temperature 97.5 F L 08/10/18 14:00 Pulse Rate 74 08/10/18 14:00 Respiratory Rate 18 08/10/18 14:00 Blood Pressure 113/71 08/10/18 14:00 O2 Sat by Pulse Oximetry (%) 95 08/10/18 10:00 General: Well developed. Obese. No acute distress. Head: Normocephalic. Atraumatic, Eyes: PERRLA, EOMI. Sclerae anicteric. Conjunctivae clear. Neck: Supple. No JVD. No bruits. Heart: Normal S1, S2: Regular rhythm and rate. No murmur. No gallop or rub. Lungs: Symmetrical poor air entry. Clear to auscultation. No crackles. No wheezing or rhonchi. Abdomen: Soft. Bowel sound positive. Non tender. No masses. Extremities: Trace to 1+edema. No clubbing or cyanosis. PD 2+, equal bilaterally. Labs: CBC, BMP 08/10/18 06:00 08/10/18 06:00 Assessment/Plan 68 year-old woman with a PMHx of HTN, DM-II, HLD, CAD, s/p mid LAD PCI with RADU on 05/02/2017, anemia (requiring recent blood transfusions x 3), no obvious source of bleeding, OSAS (not currently on treatment), and asthma presented to ED 08/09/2018 due to generalized weakness, dizziness, and shortness of breath with minimal exertion. She has occasional short lasting sharp chest pain. CXR: cardiomegaly without acute pathology. Seen by Dr. Amaro, "Do not suspect AE of Asthma or overt Respiratory illness. Suspect symptoms related to anemia and weight" BNP is mildly elevated. Troponin 0.09. Severe anemia noted. ECG 08/09/2018 showed sinus rhythm at 87 BPM, LAD, LVH with I and aVL T inversion , no change from 05/04/2018. Repeat ECG showed no changes. Repeat echocardiogram 08/10/2018: Normal LV size with normal wall motion and systolic function. LVEF = 50-55%. Normal RV. Normal LA and RA in size. Mild MR and mild TR. 1) Dyspnea on minimal exertion with mildly elevated BNP: likely due to severe anemia, high output in the setting LV diastolic dysfunction. May increase Lasix 40 mg PO BID. Anemia work up planned. 2) CAD s/p mid LAD PCI with RADU 05/02/2017. Stable with atypical chest pain, likely non-cardiac. Mildly elevated troponin likely due to severe anemia, trending down. No ECG changes. Repeat echo showed preserved LV systolic function. Metoprolol succinate 25 mg daily for cardiac protection recommended, titrate up as tolerated. Continue aspirin and atorvastatin. Please do not hesitate to call us for reconsult at any time if any further questions or additional issue arises regarding this patient.
--- NOTE | 2018-08-10 16:17 | PN ---
Progress Note (short form) - Note Progress Note: spoke to dr rai wants Dr Dorsey to see patient regarding anemia ordered CMP to check K read cardiology note regarding no need for plavix but PMD Dr rai says she needs to be on plavix and wants dr dorsey to see patient cancelling dishcarge order Problem List - Problems (1) Shortness of breath Code(s): R06.02 - SHORTNESS OF BREATH (2) Anemia Code(s): D64.9 - ANEMIA, UNSPECIFIED Qualifiers: (3) Diabetes 1.5, managed as type 2 Code(s): E10.9 - TYPE 1 DIABETES MELLITUS WITHOUT COMPLICATIONS (4) HLD (hyperlipidemia) Code(s): E78.5 - HYPERLIPIDEMIA, UNSPECIFIED
[2018-08-10 18:54] LABS: ALBUMIN 3.1 g/dl (3.4-5.0); BILIRUBIN,TOTAL 0.3 mg/dL (0.2-1); CREATININE 1.4 mg/dL (0.55-1.3); POTASSIUM 4.6 mmol/L (3.5-5.1); TOT PROT 6.9 g/dl (6.4-8.2)
--- NOTE | 2018-08-10 19:12 | CON.GI ---
Consult Consult Specialty:: GI Referred by:: Dr. Philip Reason for Consultation:: 2nd opinion regarding anemia - History of Present Illness Chief Complaint: Anemia History of Present Illness: 67 y/o woman with known history of anemia admitted through [facility] for evaluation of worsening SOB, VASQUEZ, fatigue, and weakness. Patient denies dark stools,or hematuria. family present at bedside. Hgb on admission was 8.4. She received 1 U PRBC yesterday. SHe has had low iron saturations in the past. Her son explain that she has not had anemia until ASA and plavix had been started. I had seen Ms. Shukla once while covering for Dr. Alvarado 05/05/18. She was noted guaiac negative at that time. She is followed by Dr. Alvarado who is following her during this admission. She underwent EGD/Colonoscopy performed by him 06/23/17: EGD was unrevealing and colonoscopy revealed diminutive ascending colon polyps. I reviewed his current consult. He ad advised that she follow- up at [facility] in the past for further evaluation of anemia, however, she never had it performed due to transportation concerns. There is no family history of colorectal cancer. She has not had a bowel movement today. - History Source History Provided By: Patient, Family Member, Medical Record - Past Medical History Cardio/Vascular: Yes: CAD (S/P STENTING), HTN, Hyperlipdemia. No: AFIB Pulmonary: Yes: Asthma, Bronchitis, Pneumonia, Sleep Apnea. No: COPD, O2 Dependent, Previously Intubated, Pulmonary Embolus, Pulmonary Fibrosis Gastrointestinal: Yes: GERD. No: Ascites Musculoskeletal: Yes: Osteoarthritis Endocrine: Yes: Diabetes Mellitus - Past Surgical History Additional Surgical History: Cardiac stenting 1 year 4 months ago - Alcohol/Substance Use Hx Alcohol Use: No History of Substance Use: reports: None - Smoking History Smoking history: Never smoked Have you smoked in the past 12 months: No Aproximately how many cigarettes per day: 0 - Social History Usual Living Arrangement: With Spouse ADL: Family Assistance Occupation: [employer] of : Other History of Recent Travel: No Home Medications - Allergies Allergies/Adverse Reactions: Allergies Allergy/AdvReac Type Severity Reaction Status Date / Time Penicillins Allergy Difficulty Verified 03/21/18 11:56 Breathing - Home Medications Home Medications: Ambulatory Orders Atorvastatin Ca [Lipitor] 80 mg PO HS 08/09/18 Clopidogrel Bisulfate [Plavix] 75 mg PO DAILY 08/09/18 Ferrous Sulfate 325 mg PO DAILY 08/09/18 Linaclotide [Linzess] 145 mcg PO DAILY 08/09/18 Albuterol 2.5/Ipratropium 0.5 [Duoneb -] 1 amp NEB Q6H PRN amp 08/10/18 Furosemide [Lasix -] 40 mg PO DAILY #30 tablet MDD 1 08/10/18 Hydrocortisone 2.5% Topical Cr [Anusol-Hc -] 1 applic TP BID tube 08/10/18 Insulin (Novolog 70/30) [Novolog Mix 70/30 Vial -] 55 units SQ BIDAC units Mometasone Furoate [Asmanex 220Mcg -] 2 puff IH DAILY inhaler 08/10/18 Pantoprazole Sodium [Protonix -] 40 mg PO DAILY #30 tablet.ec MDD 1 08/10/18 Prednisone [Deltasone] 20 mg PO DAILY #30 tablet 08/10/18 Ranitidine [Zantac -] 150 mg PO DAILY tablet 08/10/18 Family Disease History - Family Disease History Family Disease History: Diabetes: Mother (: DM II complications), Sister (6 , 1 of old age), Other: Father (: CVA), Mother, Brother (3, 2 from "Old age", 1 from Lung Ca), Sister, Son (5, healthy), Daughter (1, healthy) Other Family History: No family history fo colorectal cancer or other GI maliugnancy Review of Systems - Review of Systems Constitutional: denies: Chills, Night Sweats, Unintentional Wgt. Loss Cardiovascular: reports: Edema. denies: Chest Pain Respiratory: reports: SOB (resolved) Gastrointestinal: denies: Abdominal Pain Physical Exam-GI Vital Signs: Vital Signs Temperature 98.2 F 08/10/18 18:12 Pulse Rate 72 08/10/18 18:12 Respiratory Rate 20 08/10/18 18:12 Blood Pressure 134/43 L 08/10/18 18:12 O2 Sat by Pulse Oximetry (%) 95 08/10/18 10:00 Constitutional: Yes: Calm Eyes: No: Sclera Icterus Cardiovascular: Yes: Regular Rate and Rhythm, Murmur (2/6 systolic murmur) Respiratory: Yes: Diminished (at bases b/l) Gastrointestinal Inspection: Yes: Other (abdominal wall striae). No: Distention , Scars ...Auscultate: Yes: Normoactive Bowel Sounds ...Palpate: Yes: Soft. No: Hepatomegaly, Splenomegaly, Tenderness ...Percussion: No: Tympanitic ...Rectal Exam: Yes: Other (Refused by patient) Edema: Yes Edema: LLE: 1+, RLE: 1+ Neurological: Yes: Alert Labs: CBC, BMP 08/10/18 06:00 08/10/18 17:45 Laboratory Tests 09/07/17 08/10/18 08/10/18 18:30 06:00 06:00 Iron Pending TIBC Pending Ferritin 98.3 Stool Occult Blood Negative Problem List - Problems (1) Anemia Assessment/Plan: Normocytic anemia: Previously, iron saturation has been low Guaiac negative on evaluation 05/15 and patient refused rectal exam during today' s evaluation Would recommend: Stool for occult blood as patient refused rectal exam Follow-up iron studies Hematology evaluation Glycemic control If persistent iron deficiency, fecal occult blood +, agree with Dr. Alvarado re: need for capsule endoscopy to assess for small bowel etiology. This is not performed at [facility]. I gave her the name and contact number of Dr. Louise Castañeda at [facility] [phone] Fabian Eldridge in [place] [phone]. I explained that I was uncertain if Dr. Eldridge's office was still performing capsule endoscopy but that he could call the office to confirm. I explained that they would likely need further information from Dr. Alvarado regarding previous work-up and studies, including blood work, prior to testing. Further plan per Dr. Alvarado. Code(s): D64.9 - ANEMIA, UNSPECIFIED Qualifiers: Anemia type: unspecified type
[2018-08-10] MEDS: ATORVASTATIN CA 80 MG TABLET (FP) PO SCH (22:00)
[2018-08-11] MEDS: INSULIN SLIDING SCALE (NOVOLOG) 1 VIAL SQ SCH ×6 (02:18→21:51)
[2018-08-11 04:11] LABS: SERUM IRON SATURATION 28 % (15-55); TOTAL IRON BINDING CAPACITY 267 ug/dL (250-450); UIBC 193 ug/dL (118-369)
[2018-08-11] MEDS: INSULIN (NOVOLOG MIX 70/30) 100 UNITS/ML MDV SQ SCH ×2 (06:09→16:34)
[2018-08-11] MEDS: FUROSEMIDE 40 MG TABLET (FP) PO SCH (09:29)
[2018-08-11] MEDS: methylPREDNISolone NA SUCC 40 MG/1 ML VIAL IVPUSH SCH (09:29)
[2018-08-11] MEDS: HYDROCORTISONE 2.5% TOPICAL CREAM 30 GM TUBE TP SCH ×2 (09:34→21:38)
[2018-08-11] MEDS: PANTOPRAZOLE 40 MG TABLET (FP) PO SCH (09:35)
[2018-08-11] MEDS: MOMETASONE FUROATE 220 MCG/IH INHALER IH SCH (09:35)
[2018-08-11] MEDS: RANITIDINE HCL 150 MG TABLET (FP) PO SCH (09:35)
[2018-08-11 10:58] LABS: BASO % 0.3 % (0-2.0); HEMATOCRIT 29.5 % (32.4-45.2); HEMOGLOBIN 9.5 GM/dL (10.7-15.3); LYMPH % 10.8 % (8-40); MEAN CELL VOLUME 87.5 fl (80-96); MEAN PLT VOLUME 11.1 fl (7.5-11.1); NEUT % 84.9 % (42.8-82.8); PLATELET COUNT 200 K/MM3 (134-434); RBC 3.37 M/mm3 (3.60-5.2); WHITE BLOOD COUNT 8.8 K/mm3 (4.0-10.0)
[2018-08-11 11:33] LABS: ALBUMIN 3.1 g/dl (3.4-5.0); BILIRUBIN,TOTAL 0.2 mg/dL (0.2-1); CALCIUM 8.8 mg/dL (8.5-10.1); CREATININE 1.4 mg/dL (0.55-1.3); POTASSIUM 4.2 mmol/L (3.5-5.1); TOT PROT 6.6 g/dl (6.4-8.2)
--- NOTE | 2018-08-11 12:24 | PN ---
Progress Note, Physician - Current Medication List Current Medications: Active Medications Acetaminophen (Tylenol -) 650 mg PO Q4H PRN PRN Reason: PAIN LEVEL 1-5 Albuterol/Ipratropium (Duoneb -) 1 amp NEB Q6H PRN PRN Reason: SHORTNESS OF BREATH Aspirin (Ecotrin -) 81 mg PO DAILY [facility] Atorvastatin Calcium (Lipitor -) 80 mg PO HS [facility] Last Admin: 08/10/18 22:00 Dose: 80 mg Furosemide (Lasix -) 40 mg PO BID [facility] Hydrocortisone (Anusol 2.5% Hc Cream -) 1 applic TP BID [facility] Last Admin: 08/11/18 09:34 Dose: Not Given Insulin Aspart (Novolog Vial Sliding Scale -) 1 vial SQ Q4HPO [facility]; Protocol Last Admin: 08/11/18 09:45 Dose: 9 units Insulin Aspart (Novolog Mix 70/30 Vial) 30 units SQ BIDAC [facility] Last Admin: 08/11/18 06:09 Dose: 30 units Metoprolol Succinate (Toprol Xl -) 25 mg PO DAILY [facility] Mometasone Furoate (Asmanex 220mcg -) 2 puff IH DAILY [facility] Last Admin: 08/11/18 09:35 Dose: Not Given Pantoprazole Sodium (Protonix -) 40 mg PO DAILY [facility] Last Admin: 08/11/18 09:35 Dose: Not Given Prednisone (Deltasone -) 20 mg PO BID [facility] Ranitidine HCl (Zantac -) 150 mg PO DAILY [facility] Last Admin: 08/11/18 09:35 Dose: Not Given - Objective Vital Signs: Vital Signs Temperature 98 F 08/11/18 10:00 Pulse Rate 60 08/11/18 10:00 Respiratory Rate 18 08/11/18 10:00 Blood Pressure 150/58 L 08/11/18 10:00 O2 Sat by Pulse Oximetry (%) 96 08/11/18 02:00 Cardiovascular: Yes: Regular Rate and Rhythm Respiratory: Yes: Regular, CTA Bilaterally Gastrointestinal: Yes: Normal Bowel Sounds, Soft, Abdomen, Obese. No: Tenderness Labs: CBC, BMP 08/11/18 10:35 08/11/18 10:35 Problem List - Problems (1) DM2 (diabetes mellitus, type 2) Assessment/Plan: elevated maybe due to steroids monitor on meds Code(s): E11.9 - TYPE 2 DIABETES MELLITUS WITHOUT COMPLICATIONS (2) Anemia Assessment/Plan: s/p prbc and iron monitor work up done in past--needs capsule Code(s): D64.9 - ANEMIA, UNSPECIFIED Qualifiers: Anemia type: unspecified type (3) CAD (coronary artery disease) Assessment/Plan: cardio noted asa and atorvastatin lopressor Code(s): I25.10 - ATHSCL HEART DISEASE OF [place] CORONARY ARTERY W/O ANG PCTRS (4) Elevated troponin Assessment/Plan: maybe demand Code(s): R74.8 - ABNORMAL LEVELS OF OTHER SERUM ENZYMES (5) COPD (chronic obstructive pulmonary disease) Assessment/Plan: po prednisone nebs Code(s): J44.9 - CHRONIC OBSTRUCTIVE PULMONARY DISEASE, UNSPECIFIED
[2018-08-11] MEDS: metoPROLOL SUCCINATE 25 MG TAB.SR.24H (FP) PO SCH (13:58)
[2018-08-11 18:08] LABS: FREE KAPPA,SERUM 49.9 mg/L (3.3-19.4)
[2018-08-11] MEDS ORDERED: INSULIN (NOVOLOG) ASPART 100 UNITS/ML 10ML VIAL SQ ONE (18:44)
[2018-08-11] MEDS ORDERED: INSULIN SLIDING SCALE (NOVOLOG) 1 VIAL SQ ONE (21:40)
[2018-08-11] MEDS: predniSONE 20 MG TABLET (UD) PO SCH (21:50)
[2018-08-11] MEDS: ATORVASTATIN CA 80 MG TABLET (FP) PO SCH (21:50)
[2018-08-11] MEDS ORDERED: FUROSEMIDE 40 MG TABLET (FP) PO SCH (22:00)
[2018-08-12] MEDS: INSULIN SLIDING SCALE (NOVOLOG) 1 VIAL SQ SCH ×4 (02:59→13:36)
[2018-08-12] MEDS: INSULIN (NOVOLOG MIX 70/30) 100 UNITS/ML MDV SQ SCH (06:32)
[2018-08-12] MEDS: FUROSEMIDE 40 MG TABLET (FP) PO SCH ×2 (06:32→13:17)
[2018-08-12] MEDS ORDERED: PT OWN MED DRAWER 7, Y5N ONE (09:03)
[2018-08-12] MEDS: PANTOPRAZOLE 40 MG TABLET (FP) PO SCH (09:11)
[2018-08-12] MEDS: RANITIDINE HCL 150 MG TABLET (FP) PO SCH (09:12)
[2018-08-12] MEDS: HYDROCORTISONE 2.5% TOPICAL CREAM 30 GM TUBE TP SCH (09:13)
[2018-08-12] MEDS: predniSONE 20 MG TABLET (UD) PO SCH (09:13)
[2018-08-12] MEDS: MOMETASONE FUROATE 220 MCG/IH INHALER IH SCH (09:18)
[2018-08-12] MEDS: metoPROLOL SUCCINATE 25 MG TAB.SR.24H (FP) PO SCH (09:18)
--- NOTE | 2018-08-12 09:52 | DS ---
Physical Examination Vital Signs: Vital Signs Temperature 97.8 F 08/12/18 06:00 Pulse Rate 65 08/12/18 06:00 Respiratory Rate 18 08/12/18 09:00 Blood Pressure 154/77 08/12/18 06:00 O2 Sat by Pulse Oximetry (%) 99 08/12/18 09:00 Cardiovascular: Yes: Regular Rate and Rhythm Respiratory: Yes: Regular, CTA Bilaterally Gastrointestinal: Yes: Normal Bowel Sounds, Soft Edema: No Labs: CBC, BMP 08/11/18 10:35 08/11/18 10:35 Discharge Summary Reason For Visit: SHORTNESS OF BREATH Current Active Problems COPD (chronic obstructive pulmonary disease) (Acute) DM2 (diabetes mellitus, type 2) (Acute) Shortness of breath (Acute) Hospital Course: - Problems (1) DM2 (diabetes mellitus, type 2) Assessment/Plan: elevated maybe due to steroids monitor on meds Code(s): E11.9 - TYPE 2 DIABETES MELLITUS WITHOUT COMPLICATIONS (2) Anemia Assessment/Plan: s/p prbc and iron monitor work up done in past--needs capsule--PT UNDERSTANDS NEEDS OUTPATIENT FOLLOW UP Code(s): D64.9 - ANEMIA, UNSPECIFIED Qualifiers: Anemia type: unspecified type (3) CAD (coronary artery disease) Assessment/Plan: cardio noted asa and atorvastatin lopressor Code(s): I25.10 - ATHSCL HEART DISEASE OF [place] CORONARY ARTERY W/O ANG PCTRS (4) Elevated troponin Assessment/Plan: maybe demand Code(s): R74.8 - ABNORMAL LEVELS OF OTHER SERUM ENZYMES (5) COPD (chronic obstructive pulmonary disease) Assessment/Plan: po prednisone TO 20 QD nebs Code(s): J44.9 - CHRONIC OBSTRUCTIVE PULMONARY DISEASE, UNSPECIFIED Condition: Improved - Instructions Diet, Activity, Other Instructions: prednisone taper FU with neshiwat on monday ............................................................................... Referrals: Thai Alvarado MD [Staff Physician] - 2 Weeks (for capsule endoscopy) - Home Medications Comprehensive Discharge Medication List: Ambulatory Orders Atorvastatin Ca [Lipitor] 80 mg PO HS 08/09/18 Ferrous Sulfate 325 mg PO DAILY 08/09/18 Linaclotide [Linzess] 145 mcg PO DAILY 08/09/18 Albuterol 2.5/Ipratropium 0.5 [Duoneb -] 1 amp NEB Q6H PRN amp 08/10/18 Furosemide [Lasix -] 40 mg PO DAILY #30 tablet MDD 1 08/10/18 Hydrocortisone 2.5% Topical Cr [Anusol-Hc -] 1 applic TP BID tube 08/10/18 Insulin (Novolog 70/30) [Novolog Mix 70/30 Vial -] 55 units SQ BIDAC units Mometasone Furoate [Asmanex 220Mcg -] 2 puff IH DAILY inhaler 08/10/18 Pantoprazole Sodium [Protonix -] 40 mg PO DAILY #30 tablet.ec MDD 1 08/10/18 Prednisone [Deltasone] 20 mg PO DAILY #30 tablet 08/10/18 Aspirin Coated [Ecotrin -] 81 mg PO DAILY tablet.ec 08/12/18 Metoprolol Succinate [Toprol XL -] 25 mg PO DAILY #30 tab.sr.24h 08/12/18
[2018-08-12] MEDS ORDERED: ASPIRIN COATED 81 MG TABLET.EC PO SCH (10:00)
[2018-08-12 14:44] VITALS: BP 148/73; PULSE 64; TEMP 97.5
[2018-08-13] MEDS ORDERED: predniSONE 20 MG TABLET (UD) PO SCH (10:00)
[2018-08-14 13:12] LABS: ALBUMIN % 71.5 % (.); ALPHA-1 FOR UPE 1.9 % (.); TOTAL PROTEIN, URINE 110.5 mg/dL (Not Estab.)
== END 2018-08-12 15:18 | disposition home or self-care (01) | DRG 812 ==
LOC: JER 09:39 → JERBED 11:32 → J4S 20:41 → OBSVTOIN 08-11 12:10
PROVIDERS: ADMIT Student in an Organized Health Care Education/Training Program; ATTEND Student in an Organized Health Care Education/Training Program
PROC: 30233N1 Transfusion of Nonautologous Red Blood Cells into Peripheral Vein, Percutaneous Approach (ICD-10-PCS; principal; 2018-08-09)
DX: D64.9 Anemia, unspecified (principal); Z68.42 Body mass index [BMI] 45.0-49.9, adult; J44.9 Chronic obstructive pulmonary disease, unspecified; I10 Essential (primary) hypertension; E78.5 Hyperlipidemia, unspecified; I25.2 Old myocardial infarction; G47.33 Obstructive sleep apnea (adult) (pediatric); K21.9 Gastro-esophageal reflux disease without esophagitis; R07.89 Other chest pain; G47.30 Sleep apnea, unspecified; E04.9 Nontoxic goiter, unspecified; Z95.5 Presence of coronary angioplasty implant and graft; R06.02 Shortness of breath; R74.8 Abnormal levels of other serum enzymes; E66.01 Morbid (severe) obesity due to excess calories; E11.42 Type 2 diabetes mellitus with diabetic polyneuropathy; I51.7 Cardiomegaly; I25.119 Atherosclerotic heart disease of native coronary artery with unspecified angina pectoris
CPT/HCPCS: 36415; 36430; 71045-TC-FY; 80048; 80053; 81003; 82550; 82565; 82607; 82728; 82747; 82962; 83010; 83540; 83550; 83615; 83735; 83880; 83883; 84100; 84155; 84156; 84165; 84166; 84443; 84466; 84484; 84520; 85014; 85025; 85027; 85044; 85651; 85730; 86078; 86850; 86900; 86901; 86922; 93005; 93010; 93306-TC; 99285-25; G0378; J1756; P9058

== ENCOUNTER 2018-10-08 09:44 | Inpatient (IN) | payer BC, OTHER ==
--- NOTE | 2018-10-08 11:00 | PDOC ---
History of Present Illness - General Chief Complaint: Revisit, Lab Variance Stated Complaint: SENT BY PCP // WEAKNESS / SOB Time Seen by Provider: 10/08/18 10:47 History Source: Patient Exam Limitations: No Limitations - History of Present Illness Initial Comments: 68 yo F history CHF, DM, CAD, HTN, HL, anemia, asthma presents with symptomatic anemia. History obtained from patient, family, and PMD Dr. Philip. Patient has history of anemia, unknown source. Has had negative GI workup so far, guaiac negative. Denies dark stools. Last Hb as an outpatient was 8, and she has been feeling SOB and tired. Denies cp, abd pain, N/V/D. Past History - Past Medical History Allergies/Adverse Reactions: Allergies Allergy/AdvReac Type Severity Reaction Status Date / Time Penicillins Allergy Difficulty Verified 03/21/18 11:56 Breathing Home Medications: Ambulatory Orders Atorvastatin Ca [Lipitor] 80 mg PO HS 08/09/18 Ferrous Sulfate 325 mg PO DAILY 08/09/18 Linaclotide [Linzess] 145 mcg PO DAILY 08/09/18 Furosemide [Lasix -] 40 mg PO DAILY #30 tablet MDD 1 08/10/18 Pantoprazole Sodium [Protonix -] 40 mg PO DAILY #30 tablet.ec MDD 1 08/10/18 Aspirin Coated [Ecotrin -] 81 mg PO DAILY tablet.ec 08/12/18 Insulin Lispro Protamin/Lispro [Humalog Mix 50-50 Kwikpen] 25 units SQ BID 10/08 Losartan Potassium 1 tab PO DAILY 10/08/18 Metoprolol Succinate 1 tab PO DAILY 10/08/18 Ranitidine [Zantac -] 1 tab PO DAILY 10/08/18 Anemia: Yes Asthma: Yes Cardiac Disorders: Yes ([place], CAD sp Stentx2,) COPD: No CHF: Yes Diabetes: Yes GI Disorders: Yes (constipation) HTN: Yes Hypercholesterolemia: Yes - Surgical History Abdominal Surgery: Yes Cardiac Surgery: Yes (cath with stent x2) Orthopedic Surgery: Yes (knee surgery) - Immunization History TDAP Vaccination: Yes Immunization Up to Date: Yes - Suicide/Smoking/Psychosocial Hx Smoking Status: No Smoking History: Unknown if ever smoked Have you smoked in the past 12 months: No Number of Cigarettes Smoked Daily: 0 Hx Alcohol Use: No Drug/Substance Use Hx: No Substance Use Type: None Hx Substance Use Treatment: No Review of Systems - Review of Systems Able to Perform ROS?: Yes Comments:: GENERAL/CONSTITUTIONAL: No fever or chills. No weakness. HEAD, EYES, EARS, NOSE AND THROAT: No change in vision. No ear pain or discharge. No sore throat. CARDIOVASCULAR: No chest pain. +Shortness of breath. RESPIRATORY: No cough, wheezing, or hemoptysis. GASTROINTESTINAL: No nausea, vomiting, diarrhea or constipation. GENITOURINARY: No dysuria, frequency, or change in urination. MUSCULOSKELETAL: No joint or muscle swelling or pain. No neck or back pain. SKIN: No rash. NEUROLOGIC: No headache, vertigo, loss of consciousness, or change in strength/ sensation. ENDOCRINE: No increased thirst. No abnormal weight change. HEMATOLOGIC/LYMPHATIC: +Anemia. No easy bleeding or history of blood clots. ALLERGIC/IMMUNOLOGIC: No hives or skin allergy. *Physical Exam - Vital Signs Last Vital Signs Temp Pulse Resp BP Pulse Ox 98.6 F 87 24 H 139/54 L 98 10/08/18 09:45 10/08/18 09:45 10/08/18 09:45 10/08/18 09:45 10/08/18 09:45 - Physical Exam Comments: GENERAL: Awake, alert, and fully oriented, in no acute distress. +Pallor. Obese. HEAD: No signs of trauma EYES: PERRLA, EOMI, sclera anicteric, conjunctiva clear ENT: Auricles normal inspection, hearing grossly normal, nares patent, oropharynx clear without exudates. Moist mucosa NECK: Normal ROM, supple, no lymphadenopathy, JVD, or masses LUNGS: Breath sounds equal, clear to auscultation bilaterally. No wheezes, and no crackles HEART: Regular rate and rhythm, normal S1 and S2, no murmurs, rubs or gallops ABDOMEN: Soft, nontender, normoactive bowel sounds. No guarding, no rebound. No masses EXTREMITIES: Normal range of motion, no edema. No clubbing or cyanosis. No cords, erythema, or tenderness NEUROLOGICAL: Cranial nerves II through XII grossly intact. Normal speech, normal gait. Motor and sensation intact SKIN: Warm, dry, normal turgor, no rashes or lesions noted. RECTAL: No stool in the vault Heart Score/ECG Review - ECG Impressions Comment:: EKG read 11:19- NSR 81 bpm, +LAFB. Inv T waves in I and aVL. ED Treatment Course - LABORATORY CBC & Chemistry Diagram: 10/08/18 11:39 10/08/18 14:20 - RADIOLOGY Radiology Studies Ordered: Category Date Time Status CHEST PA & LAT [RAD] Stat Radiology 10/08/18 10:49 Ordered Medical Decision Making - Medical Decision Making 10/08/18 15:22 Case d/w Dr. Philip, will admit for symptomatic anemia. Case d/w Ranjana Hayes , will write admission orders. 10/08/18 17:50 Rectal exam done, NO stool in the vault. *DC/Admit/Observation/Transfer Diagnosis at time of Disposition: Symptomatic anemia - Discharge Dispostion Condition at time of disposition: Stable Decision to Admit order: Yes - Referrals - Patient Instructions - Post Discharge Activity
[2018-10-08 12:22] LABS: BASO % 0.3 % (0-2.0); HEMATOCRIT 26.7 % (32.4-45.2); HEMOGLOBIN 8.8 GM/dL (10.7-15.3); LYMPH % 14.5 % (8-40); MCH 28.4 pg (25.7-33.7); MEAN CELL VOLUME 86.3 fl (80-96); MEAN PLT VOLUME 11.5 fl (7.5-11.1); MONO % 5.9 % (3.8-10.2); NEUT % 77.3 % (42.8-82.8); PLATELET COUNT 222 K/MM3 (134-434); RBC 3.09 M/mm3 (3.60-5.2); RDW 15.1 % (11.6-15.6); RETICULOCYTES 2.16 % (0.5-1.5); WHITE BLOOD COUNT 8.1 K/mm3 (4.0-10.0)
[2018-10-08 12:29] LABS: INR 1.03 (0.83-1.09); PROTHROMBIN TIME (PATIENT) 12.1 SEC (9.7-13.0)
[2018-10-08 12:45] LABS: ALBUMIN 3.1 g/dl (3.4-5.0); BILIRUBIN,TOTAL 0.3 mg/dL (0.2-1); BLOOD UREA NITROGEN 34.1 mg/dL (7-18); CALCIUM 8.8 mg/dL (8.5-10.1); CREATININE 1.4 mg/dL (0.55-1.3); POTASSIUM 5.9 mmol/L (3.5-5.1); TOT PROT 6.6 g/dl (6.4-8.2)
[2018-10-08] MEDS ORDERED: INSULIN REGULAR HUMAN 100 UNITS/ML *VIAL SQ ONE (13:12)
[2018-10-08] MEDS ORDERED: INSULIN REGULAR HUMAN 100 UNITS/ML *VIAL ONE (14:07)
--- NOTE | 2018-10-08 14:36 | EKG ---
Test Reason : Blood Pressure : / mmHG Vent. Rate : 081 BPM Atrial Rate : 081 BPM P-R Int : 166 ms QRS Dur : 114 ms QT Int : 390 ms P-R-T Axes : 062 -45 101 degrees QTc Int : 453 ms NORMAL SINUS RHYTHM LEFT ANTERIOR FASCICULAR BLOCK T WAVE ABNORMALITY, CONSIDER LATERAL ISCHEMIA ABNORMAL ECG WHEN COMPARED WITH ECG OF 10-AUG-2018 08:28, NO SIGNIFICANT CHANGE WAS FOUND Confirmed by TITO ROBERTS MD ([id number]) on 10/08/2018 2:36:08 PM Referred By: Confirmed By:TITO ROBERTS MD
[2018-10-08] MEDS ORDERED: PATIENT'S OWN MEDICATION (NON-FORMULARY) (Insulin Lispro Protamin/Lispro [Humalog Mix 50-5 SQ SCH (22:00)
[2018-10-08] MEDS: ATORVASTATIN CA 40 MG TABLET (FP) PO SCH (22:01)
[2018-10-09] MEDS: INSULIN SLIDING SCALE (NOVOLOG) 1 VIAL SQ SCH ×3 (06:49→17:49)
--- NOTE | 2018-10-09 07:46 | CON.GI ---
Consult Consult Specialty:: GI Referred by:: Ranjana BLANKENSHIP Reason for Consultation:: Anemia - History of Present Illness History of Present Illness: Patient is a 68 y/o female with past medical history of CHF, DM, CAD, HTN, HLD, anemia, and asthma. Patient is known to my service. I was consulted to evaluate patient for anemia. Patient has history of anemia and when presented to ER noted with Hg 8.8, Haptoglobin and retic count elevated, and stool OB negative on admission. She received 1U PRBC last night and pending this morning labs to see most recent Hg. On 06/23/17 patient had unrevealing EGD and colonoscopy which showed diminiutive ascending colon polyps. Being that GI workup was negative patient was referred to [facility] for video capsule endoscopy to assess small bowel etiology as possible source for anemia. Patient has not had capsule endoscopy done due to [facility] being too far away and last admission for anemia requested a second GI opinion. Patient was evaluated by Dr Villagomez for second opinion and he agreed with video capsule endoscopy and gave patient names of two physicians for video capsule endoscopy. Patient has been non- compliant and has not followed up in office and has not had video capsule endoscopy performed. - History Source History Provided By: Patient Limitations to Obtaining History: No Limitations - Past Medical History Cardio/Vascular: Yes: CAD (S/P STENTING), HTN, Hyperlipdemia. No: AFIB Pulmonary: Yes: Asthma, Bronchitis, Pneumonia, Sleep Apnea. No: COPD, O2 Dependent, Previously Intubated, Pulmonary Embolus, Pulmonary Fibrosis Gastrointestinal: Yes: GERD. No: Ascites Musculoskeletal: Yes: Osteoarthritis Endocrine: Yes: Diabetes Mellitus - Alcohol/Substance Use Hx Alcohol Use: No History of Substance Use: reports: None - Smoking History Smoking history: Unknown if ever smoked Have you smoked in the past 12 months: No Aproximately how many cigarettes per day: 0 - Social History Usual Living Arrangement: With Spouse ADL: Family Assistance Occupation: [employer] History of Recent Travel: No Home Medications - Allergies Allergies/Adverse Reactions: Allergies Allergy/AdvReac Type Severity Reaction Status Date / Time Penicillins Allergy Difficulty Verified 03/21/18 11:56 Breathing - Home Medications Home Medications: Ambulatory Orders Atorvastatin Ca [Lipitor] 80 mg PO HS 08/09/18 Ferrous Sulfate 325 mg PO DAILY 08/09/18 Linaclotide [Linzess] 145 mcg PO DAILY 08/09/18 Furosemide [Lasix -] 40 mg PO DAILY #30 tablet MDD 1 08/10/18 Pantoprazole Sodium [Protonix -] 40 mg PO DAILY #30 tablet.ec MDD 1 08/10/18 Aspirin Coated [Ecotrin -] 81 mg PO DAILY tablet.ec 08/12/18 Insulin Lispro Protamin/Lispro [Humalog Mix 50-50 Kwikpen] 25 units SQ BID 10/08 Losartan Potassium 1 tab PO DAILY 10/08/18 Metoprolol Succinate 1 tab PO DAILY 10/08/18 Ranitidine [Zantac -] 1 tab PO DAILY 10/08/18 Family Disease History - Family Disease History Family Disease History: Diabetes: Mother (: DM II complications), Sister (6 , 1 of old age), Other: Father (: CVA), Mother, Brother (3, 2 from "Old age", 1 from Lung Ca), Sister, Son (5, healthy), Daughter (1, healthy) Review of Systems - Review of Systems Constitutional: reports: No Symptoms Eyes: reports: No Symptoms HENT: reports: No Symptoms Neck: reports: No Symptoms Cardiovascular: reports: No Symptoms Respiratory: reports: No Symptoms Gastrointestinal: reports: Constipation Breasts: reports: No Symptoms Reported Musculoskeletal: reports: No Symptoms Integumentary: reports: No Symptoms Neurological: reports: No Symptoms Endocrine: reports: No Symptoms Hematology/Lymphatic: reports: No Symptoms Psychiatric: reports: No Symptoms Physical Exam-GI Vital Signs: Vital Signs Temperature 98.4 F 10/09/18 02:00 Pulse Rate 74 10/09/18 02:00 Respiratory Rate 18 10/09/18 02:00 Blood Pressure 140/73 10/09/18 02:00 O2 Sat by Pulse Oximetry (%) 97 10/08/18 22:00 Constitutional: Yes: No Distress, Calm, Obese Eyes: Yes: Conjunctiva Clear HENT: Yes: Atraumatic Cardiovascular: Yes: Regular Rate and Rhythm Respiratory: Yes: Regular, Diminished Gastrointestinal Inspection: Yes: WNL. No: Ascites, Distention, Hernia, Scars, Other ...Auscultate: Yes: Normoactive Bowel Sounds. No: Hyperactive Bowel Sounds, Hypoactive Bowel Sounds, No Bowel Sounds, Other ...Palpate: Yes: Soft. No: Firm/Rigid, Guarding, Hepatomegaly, Mass, Pulsatile Mass, Splenomegaly, Tenderness, Tenderness, Epigastium, Tenderness, Rebound, Other ...Percussion: Yes: Tympanitic. No: Dullness, Fluid Wave, Other Neurological: Yes: Alert, Oriented Psychiatric: Yes: Alert, Oriented Labs: CBC, BMP 10/08/18 11:39 10/08/18 14:20 INR, PTT INR 1.03 (0.83-1.09) 10/08/18 11:39 Problem List - Problems (1) Anemia Assessment/Plan: >monitor Hg daily >transfuse if Hg <7.0 to avoid fluid overload >will need video capsule endoscopy and outpatient follow up Code(s): D64.9 - ANEMIA, UNSPECIFIED Qualifiers: Anemia type: unspecified type Qualified Code(s): D64.9 - Anemia, unspecified
[2018-10-09 08:09] LABS: BASO % 0.7 % (0-2.0); EOS % 2.1 % (0-4.5); HEMATOCRIT 27.9 % (32.4-45.2); HEMOGLOBIN 9.2 GM/dL (10.7-15.3); LYMPH % 18.6 % (8-40); MCH 27.9 pg (25.7-33.7); MCHC 33.1 g/dl (32.0-36.0); MEAN CELL VOLUME 84.2 fl (80-96); MEAN PLT VOLUME 10.3 fl (7.5-11.1); MONO % 6.3 % (3.8-10.2); NEUT % 72.3 % (42.8-82.8); RBC 3.32 M/mm3 (3.60-5.2); RDW 18.1 % (11.6-15.6); WHITE BLOOD COUNT 6.5 K/mm3 (4.0-10.0)
[2018-10-09 08:57] LABS: ALBUMIN 3.1 g/dl (3.4-5.0); BILIRUBIN,TOTAL 0.4 mg/dL (0.2-1); CALCIUM 8.6 mg/dL (8.5-10.1); CREATININE 1.3 mg/dL (0.55-1.3); MAGNESIUM 2.3 mg/dL (1.8-2.4); PHOSPHOROUS 4.1 mg/dL (2.5-4.9); POTASSIUM 4.9 mmol/L (3.5-5.1); TOT PROT 6.4 g/dl (6.4-8.2)
--- NOTE | 2018-10-09 09:08 | HP ---
Admitting History and Physical - Primary Care Physician PCP: Gwen Jacobson - Admission Chief Complaint: WEAKNESS/WORSENING ENEMIA, DYSPNEA History of Present Illness: 68 Y/O FEMALE WITH WORSENING ANEMIA C/O FATIGUE, DYSPNEA, WEAKNESS. H/O DM, HTN , CAD, ASTHMA, OBESITY. History Source: Patient Limitations to Obtaining History: No Limitations - Past Medical History Cardiovascular: Yes: CAD (S/P STENTING), HTN, Hyperlipdemia. No: AFIB Pulmonary: Yes: Asthma, Bronchitis, Pneumonia, Sleep Apnea. No: COPD, O2 Dependent, Previously Intubated, Pulmonary Embolus, Pulmonary Fibrosis Gastrointestinal: Yes: GERD. No: Ascites Heme/Onc: Yes: Anemia Musculoskeletal: Yes: Osteoarthritis Endocrine: Yes: Diabetes Mellitus - Smoking History Smoking history: Unknown if ever smoked Have you smoked in the past 12 months: No Aproximately how many cigarettes per day: 0 - Alcohol/Substance Use Hx Alcohol Use: No History of Substance Use: reports: None - Social History ADL: Family Assistance Occupation: [employer] History of Recent Travel: No Home Medications - Allergies Allergies/Adverse Reactions: Allergies Allergy/AdvReac Type Severity Reaction Status Date / Time Penicillins Allergy Difficulty Verified 03/21/18 11:56 Breathing - Home Medications Home Medications: Ambulatory Orders Atorvastatin Ca [Lipitor] 80 mg PO HS 08/09/18 Ferrous Sulfate 325 mg PO DAILY 08/09/18 Linaclotide [Linzess] 145 mcg PO DAILY 08/09/18 Furosemide [Lasix -] 40 mg PO DAILY #30 tablet MDD 1 08/10/18 Pantoprazole Sodium [Protonix -] 40 mg PO DAILY #30 tablet.ec MDD 1 08/10/18 Aspirin Coated [Ecotrin -] 81 mg PO DAILY tablet.ec 08/12/18 Insulin Lispro Protamin/Lispro [Humalog Mix 50-50 Kwikpen] 25 units SQ BID 10/08 Losartan Potassium 1 tab PO DAILY 10/08/18 Metoprolol Succinate 1 tab PO DAILY 10/08/18 Ranitidine [Zantac -] 1 tab PO DAILY 10/08/18 Family Disease History - Family Disease History Family Disease History: Diabetes: Mother (: DM II complications), Sister (6 , 1 of old age), Other: Father (: CVA), Mother, Brother (3, 2 from "Old age", 1 from Lung Ca), Sister, Son (5, healthy), Daughter (1, healthy) Review of Systems - Review of Systems Constitutional: reports: Weakness Eyes: reports: No Symptoms HENT: reports: No Symptoms Neck: reports: No Symptoms Cardiovascular: reports: Shortness of Breath Respiratory: reports: Orthopnea, SOB on Exertion Gastrointestinal: reports: No Symptoms Genitourinary: reports: No Symptoms Musculoskeletal: reports: Muscle Weakness Integumentary: reports: No Symptoms Neurological: reports: No Symptoms Endocrine: reports: No Symptoms Hematology/Lymphatic: reports: No Symptoms Psychiatric: reports: No Symptoms Physical Examination Vital Signs: Vital Signs Temperature 98.4 F 10/09/18 08:07 Pulse Rate 74 10/09/18 08:07 Respiratory Rate 20 10/09/18 08:07 Blood Pressure 136/62 10/09/18 08:07 O2 Sat by Pulse Oximetry (%) 97 10/08/18 22:00 Constitutional: Yes: Mild Distress Eyes: Yes: WNL HENT: Yes: WNL Neck: Yes: WNL Cardiovascular: Yes: Regular Rate and Rhythm Respiratory: Yes: Diminished Gastrointestinal: Yes: Soft, Abdomen, Obese Renal/: Yes: WNL Musculoskeletal: Yes: Muscle Weakness Extremities: Yes: WNL Edema: Yes Integumentary: Yes: Venous Stasis Changes Wound/Incision: Yes: Dressing Dry and Intact Neurological: Yes: Paresthesia ...Motor Strength: LLE, RLE Psychiatric: Yes: WNL Labs: CBC, BMP 10/09/18 07:30 Imaging - Results Cat Scan: Report Reviewed Problem List - Problems (1) Symptomatic anemia Code(s): D64.9 - ANEMIA, UNSPECIFIED (2) HORACE (acute kidney injury) Code(s): N17.9 - ACUTE KIDNEY FAILURE, UNSPECIFIED (3) Atypical chest pain Code(s): R07.89 - OTHER CHEST PAIN (4) CAD (coronary artery disease) Code(s): I25.10 - ATHSCL HEART DISEASE OF [place] CORONARY ARTERY W/O ANG PCTRS (5) COPD (chronic obstructive pulmonary disease) Code(s): J44.9 - CHRONIC OBSTRUCTIVE PULMONARY DISEASE, UNSPECIFIED (6) DM2 (diabetes mellitus, type 2) Code(s): E11.9 - TYPE 2 DIABETES MELLITUS WITHOUT COMPLICATIONS (7) Dizziness Code(s): R42 - DIZZINESS AND GIDDINESS (8) Shortness of breath Code(s): R06.02 - SHORTNESS OF BREATH (9) Sleep apnea Code(s): G47.30 - SLEEP APNEA, UNSPECIFIED (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
[2018-10-09] MEDS: PANTOPRAZOLE 40 MG TABLET (FP) PO SCH ×2 (09:25→09:35)
[2018-10-09] MEDS: FUROSEMIDE 40 MG TABLET (FP) PO SCH (09:25)
[2018-10-09] MEDS: FERROUS SO4 325 MG TABLET (FP) PO SCH (09:25)
[2018-10-09] MEDS: RANITIDINE HCL 150 MG TABLET (FP) PO SCH ×2 (09:26→09:34)
[2018-10-09 09:43] LABS: PLATELET COUNT 203 K/MM3 (134-434)
[2018-10-09] MEDS ORDERED: PATIENT'S OWN MEDICATION (NON-FORMULARY) (Losartan Potassium [Losartan Potassium] 1 TAB) PO SCH (10:00)
[2018-10-09] MEDS ORDERED: INSULIN (NOVOLOG) ASPART 100 UNITS/ML 10ML VIAL ONE (12:17)
--- NOTE | 2018-10-09 17:40 | PN ---
Progress Note (short form) - Note Progress Note: Patient seen and examined Chart reviewed , patient examined and consult dictated Multiple co-morbid medical problems. Anemia -NC/NC Previously normal B-12, folate, TSH,. Negative serum immunofixation but free kappa/free lambda light chain ratio elevated - raising concern for possible dysproteinemia. Has received transfusions 06/19/17--1 unit 06/20/17--2 units 06/21/17--1unit 09/07/17--1unit 09/08/17--1unit 05/05/17--2 units 08/09/18-1 unit 10/08/18--1 unit Has elevated haptoglobin-356 and CORRECTED RETIC COUNT of 1.3 which is low --> not elevated as reported. This is against hemolysis. Previously has had low Fe++ and low Fe++ saturation. Has had negative colonoscopy and EGD. Capsule hopefully is to be done. Picture suggests blood loss anemia with ongoing need for transfusion. In view of FK/FL light chain ratio being mildly elevated , protein studies will need be monitored , Would also suggest CT --> C-A-P .
--- NOTE | 2018-10-09 18:31 | CONS ---
DATE OF CONSULTATION: 10/09/2018 HISTORY: This 68-year-old female is being evaluated for anemia. Past history includes that of ASHD, CHF, diabetes, coronary artery disease, hypertension, hyperlipidemia, and asthma. Patient presented with anemia with hematocrit of 26.7. Haptoglobin was elevated at 356. Reticulocyte count was 2.16. Previously, the patient has undergone upper and lower endoscopy nonrevealing. Capsule endoscopy was recommended, not performed, and is pending as an outpatient. PAST MEDICAL HISTORY: Includes that of hyperlipidemia, hypertension, stenting, coronary artery disease. There is a history of sleep apnea. There is a history of COPD. There is a history of pulmonary emboli. There is a history of GERD. SOCIAL HISTORY: Patient is a nonsmoker, nondrinker. HOME MEDICATIONS: Included Lipitor, iron, Linzess, Lasix, Protonix, Ecotrin, insulin, losartan, metoprolol, and Zantac. FAMILY HISTORY: Includes a mother who with diabetes. Father with stroke. One brother had lung cancer. REVIEW OF SYSTEMS: The patient has no headaches, diplopia, epistaxis. Has shortness of breath, difficulty breathing. Occasional constipation. No dysuria, hematuria. Occasional back pain. CURRENT PHYSICAL: Vital Signs: BP 140/53, pulse 81, respiratory 18, temperature 98.4. HEENT: FERMIN. EOM intact. Oropharynx unremarkable. Lungs: Diminished breath sounds. Cardiac: RSR. Breasts: No masses. Abdomen: Obese. Skin: Excoriations on lower extremity. Lower extremity edema. LABORATORY: WBC on admission 8.1, now 6.5, hemoglobin 8.8, post transfusion 9.2, hematocrit 26.7, now 27.9, platelets 222 and 203, polys 77, lymphocytes 18, monocytes 6. Haptoglobin 356, reticulocyte count 2.16. Chemistries: Sodium 137, K 4.9, chloride 104, CO2 is 28, BUN 33, creatinine 1.3, GFR 41, glucose 312, calcium 8.6, phosphorous 4.1, magnesium 2.3. AST 6, ALT 15, alkaline phosphatase 75. Protein 6.4, albumin 3.1, TSH 0.38. Chest x-ray: Wide mediastinum, congestive changes. IMPRESSION: This 68-year-old female has had chronic anemia. PLAN: In June 19, 2017, the patient received 1 unit of packed cells, June 20 received 2 units of packed cells, June 21 received 1 unit of packed cells. On September 07 the patient received a unit of packed cells and on September 08, 2017, the patient received 1 unit of packed cells. On May 05 received 2 units of packed cells, on August 09 received 1 unit of packed cells, and on October 08 received 1 unit of packed cells. The patient currently has an elevation of haptoglobin and a corrected reticulocyte count of 1.4, which is low. She has had an upper and lower endoscopy. She needs a capsule endoscopy. In view of the elevation of haptoglobin, the low reticulocyte count, hemolysis is less likely. The patient does have normal B12, normal folate, normal TSH previously. She does have a free kappa and a free lambda light change ratio, which is mildly increased, although serum immunofixation has been negative. Patient can have a capsule endoscopy, and if not revealing, additional laboratory for dysproteinemia can be elevated. In view of the ongoing need for transfusion, likely blood loss source seems to be likely etiology. Flow cytometry as well can be obtained. AGATA LOYOLA M.D. RAMONE/[id number]
[2018-10-09] MEDS: ATORVASTATIN CA 40 MG TABLET (FP) PO SCH (21:42)
[2018-10-10] MEDS ORDERED: INSULIN (NOVOLOG) ASPART 100 UNITS/ML 10ML VIAL ONE ×2 (06:09→11:30)
[2018-10-10] MEDS ORDERED: PT OWN MED DRAWER 7, Y5N ONE ×3 (06:10→11:45)
--- NOTE | 2018-10-10 07:35 | PN.GI ---
GI Progress Note Subjective: Patient denies complaints of dysphagia, nausea/vomiting, abdominal pain, rectal bleeding or blood in stool. Repeat labs from 10/09/18 shows Hg 9.2 after 1U PRBC transfusion, pending results from this morning blood draws. - Objective Vital Signs: Vital Signs Temperature 98.0 F 10/10/18 07:14 Pulse Rate 68 10/10/18 07:14 Respiratory Rate 20 10/10/18 07:14 Blood Pressure 131/56 L 10/10/18 07:14 O2 Sat by Pulse Oximetry (%) 97 10/09/18 22:00 Constitutional: No Distress, Calm, Obese Eyes: Yes: Conjunctiva Clear HENT: Yes: Atraumatic Cardiovascular: Yes: Regular Rate and Rhythm Respiratory: Yes: Regular, CTA Bilaterally Gastrointestinal Inspection: Yes: WNL. No: Ascites, Distention, Hernia, Scars, Other ...Auscultate: Yes: Normoactive Bowel Sounds. No: Hyperactive Bowel Sounds, Hypoactive Bowel Sounds, No Bowel Sounds, Other ...Palpate: Yes: Soft. No: Firm/Rigid, Guarding, Hepatomegaly, Mass, Pulsatile Mass, Splenomegaly, Tenderness, Tenderness, Epigastium, Tenderness, Rebound, Other ...Percussion: Yes: Tympanitic. No: Dullness, Fluid Wave, Other Neurological: Yes: Alert, Oriented Psychiatric: Yes: Alert, Oriented Labs: CBC, BMP 10/09/18 07:30 10/09/18 07:30 INR, PTT INR 1.03 (0.83-1.09) 10/08/18 11:39 Active Medications Generic Name Dose Route Start Last Admin Trade Name Eddi PRN Reason Stop Dose Admin Aspirin 81 mg 10/10/18 10:00 Ecotrin - PO DAILY ALEE Atorvastatin Calcium 80 mg 10/08/18 22:00 10/09/18 21:42 Lipitor - PO 80 mg HS ALEE Administration Ferrous Sulfate 325 mg 10/09/18 10:00 10/09/18 09:25 Feosol - PO 325 mg DAILY ALEE Administration Furosemide 40 mg 10/09/18 10:00 10/09/18 09:25 Lasix - PO 40 mg DAILY ALEE Administration Insulin Aspart 1 vial 10/09/18 07:00 10/09/18 17:49 Novolog Vial Sliding Scale - SQ 8 unit TIDAC ALEE Administration Protocol Metoprolol Succinate 50 mg 10/09/18 10:00 10/09/18 09:35 Toprol Xl - PO Not Given DAILY [facility] Non-Formulary Medication 25 units 10/08/18 22:00 Insulin Lispro Protamin/Lispro [Humalog Mix 50-50 Kwikpen] SQ BID [facility] Pantoprazole Sodium 40 mg 10/09/18 10:00 10/09/18 09:35 Protonix - PO Not Given DAILY [facility] Ranitidine HCl 150 mg 10/09/18 10:00 10/09/18 09:34 Zantac - PO Not Given DAILY [facility] Problem List - Problems (1) Anemia Assessment/Plan: >monitor Hg daily >transfuse if Hg <7.0 to avoid fluid overload >will order CT enterography when renal function improves >restart Aspirin 81mg daily as risks outweigh benefits >will need video capsule endoscopy and outpatient follow up Code(s): D64.9 - ANEMIA, UNSPECIFIED Qualifiers: Anemia type: unspecified type Qualified Code(s): D64.9 - Anemia, unspecified
[2018-10-10 07:53] LABS: HEMATOCRIT 28.1 % (32.4-45.2); HEMOGLOBIN 9.3 GM/dL (10.7-15.3); MCH 27.9 pg (25.7-33.7); MCHC 33.2 g/dl (32.0-36.0); MEAN PLT VOLUME 10.5 fl (7.5-11.1); PLATELET COUNT 199 K/MM3 (134-434); RBC 3.35 M/mm3 (3.60-5.2); RDW 17.4 % (11.6-15.6); WHITE BLOOD COUNT 6.3 K/mm3 (4.0-10.0)
[2018-10-10 08:22] LABS: BLOOD UREA NITROGEN 32.9 mg/dL (7-18); CALCIUM 8.8 mg/dL (8.5-10.1); CREATININE 1.2 mg/dL (0.55-1.3); N-TERMINAL BNP 1278.9 pg/ml (5-125); POTASSIUM 4.4 mmol/L (3.5-5.1)
[2018-10-10] MEDS: INSULIN SLIDING SCALE (NOVOLOG) 1 VIAL SQ SCH ×2 (10:14→11:31)
[2018-10-10] MEDS: PANTOPRAZOLE 40 MG TABLET (FP) PO SCH (10:15)
[2018-10-10] MEDS: RANITIDINE HCL 150 MG TABLET (FP) PO SCH (10:15)
[2018-10-10] MEDS: FUROSEMIDE 40 MG TABLET (FP) PO SCH (10:15)
[2018-10-10] MEDS: ASPIRIN COATED 81 MG TABLET.EC PO SCH (10:15)
[2018-10-10] MEDS: FERROUS SO4 325 MG TABLET (FP) PO SCH (10:15)
--- NOTE | 2018-10-10 10:39 | PN ---
Progress Note, Physician Chief Complaint: AWAKE ALERT REVIEWED CASE WITH DR LOYOLA AND AYAZ WILL START HEME/ONC AND RENAL WORKUP FOR GAMMAGLOBULINEMIA VS GI BLEED - Current Medication List Current Medications: Active Medications Aspirin (Ecotrin -) 81 mg PO DAILY [facility] Last Admin: 10/10/18 10:15 Dose: 81 mg Atorvastatin Calcium (Lipitor -) 80 mg PO HS [facility] Last Admin: 10/09/18 21:42 Dose: 80 mg Ferrous Sulfate (Feosol -) 325 mg PO DAILY [facility] Last Admin: 10/10/18 10:15 Dose: 325 mg Furosemide (Lasix -) 40 mg PO DAILY [facility] Last Admin: 10/10/18 10:15 Dose: 40 mg Insulin Aspart (Novolog Vial Sliding Scale -) 1 vial SQ TIDAC [facility]; Protocol Last Admin: 10/10/18 10:14 Dose: Not Given Metoprolol Succinate (Toprol Xl -) 50 mg PO DAILY [facility] Last Admin: 10/10/18 10:15 Dose: 50 mg Non-Formulary Medication (Insulin Lispro Protamin/Lispro [Humalog Mix 50-50 Kwikpen]) 25 units SQ BID [facility] Pantoprazole Sodium (Protonix -) 40 mg PO DAILY [facility] Last Admin: 10/10/18 10:15 Dose: 40 mg Ranitidine HCl (Zantac -) 150 mg PO DAILY [facility] Last Admin: 10/10/18 10:15 Dose: 150 mg - Objective Vital Signs: Vital Signs Temperature 98.0 F 10/10/18 07:14 Pulse Rate 68 10/10/18 07:14 Respiratory Rate 20 10/10/18 07:14 Blood Pressure 131/56 L 10/10/18 07:14 O2 Sat by Pulse Oximetry (%) 97 10/09/18 22:00 Constitutional: Yes: No Distress Eyes: Yes: WNL HENT: Yes: WNL Neck: Yes: WNL Cardiovascular: Yes: Regular Rate and Rhythm Respiratory: Yes: Regular Gastrointestinal: Yes: Abdomen, Obese Genitourinary: Yes: WNL Musculoskeletal: Yes: WNL Extremities: Yes: WNL Edema: Yes Integumentary: Yes: Rash Wound/Incision: Yes: Clean/Dry Neurological: Yes: Pre-Existing Deficit Psychiatric: Yes: WNL Labs: CBC, BMP 10/10/18 07:00 10/10/18 06:00 INR, PTT INR 1.03 (0.83-1.09) 10/08/18 11:39 Problem List - Problems (1) Symptomatic anemia Code(s): D64.9 - ANEMIA, UNSPECIFIED (2) HORACE (acute kidney injury) Code(s): N17.9 - ACUTE KIDNEY FAILURE, UNSPECIFIED (3) Atypical chest pain Code(s): R07.89 - OTHER CHEST PAIN (4) CAD (coronary artery disease) Code(s): I25.10 - ATHSCL HEART DISEASE OF [place] CORONARY ARTERY W/O ANG PCTRS (5) COPD (chronic obstructive pulmonary disease) Code(s): J44.9 - CHRONIC OBSTRUCTIVE PULMONARY DISEASE, UNSPECIFIED (6) DM2 (diabetes mellitus, type 2) Code(s): E11.9 - TYPE 2 DIABETES MELLITUS WITHOUT COMPLICATIONS (7) Dizziness Code(s): R42 - DIZZINESS AND GIDDINESS (8) Shortness of breath Code(s): R06.02 - SHORTNESS OF BREATH (9) Sleep apnea Code(s): G47.30 - SLEEP APNEA, UNSPECIFIED (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 CAPSULE GI STUDY OUTPATIENT DERM CONSULT FOR RASH
[2018-10-10] MEDS: COLLOIDAL OATMEAL 1 BAR EACH TP PRN (11:24)
[2018-10-10] MEDS ORDERED: INSULIN SLIDING SCALE (NOVOLOG) 1 VIAL SQ SCH (11:47)
--- NOTE | 2018-10-10 12:33 | CONSULT ---
Consult Consult Specialty:: Nephrology Reason for Consultation:: CKD - History of Present Illness Chief Complaint: weakness History of Present Illness: Pt is a 68 year old female with pmhx of CHF, DM, CAD, HTN, HLD, CKD, asthma and anemia who presents to the ER with symptomatic anemia. I was called to evaluate her for ckd. She was seen by Dr Castro in the past however she would prefer to see me secondary to language barriers. I did call and discus her care with Dr Castro. She denies hematuria or dysuria. She denies history of ckd however he renal function has not been normal. She denies lower ext edema however shoe does get short of breath with activity. She denies nsaid use. - History Source History Provided By: Patient, Medical Record - Past Medical History Cardio/Vascular: Yes: CAD (S/P STENTING), HTN, Hyperlipdemia Pulmonary: Yes: Asthma, Bronchitis, Pneumonia, Sleep Apnea Gastrointestinal: Yes: GERD Renal/: Yes: Renal Inusuff Musculoskeletal: Yes: Osteoarthritis Endocrine: Yes: Diabetes Mellitus - Alcohol/Substance Use Hx Alcohol Use: No History of Substance Use: reports: None - Smoking History Smoking history: Unknown if ever smoked Have you smoked in the past 12 months: No Aproximately how many cigarettes per day: 0 - Social History Usual Living Arrangement: With Spouse ADL: Family Assistance Occupation: [employer] History of Recent Travel: No Home Medications - Allergies Allergies/Adverse Reactions: Allergies Allergy/AdvReac Type Severity Reaction Status Date / Time Penicillins Allergy Difficulty Verified 03/21/18 11:56 Breathing - Home Medications Home Medications: Ambulatory Orders Atorvastatin Ca [Lipitor] 80 mg PO HS 08/09/18 Ferrous Sulfate 325 mg PO DAILY 08/09/18 Linaclotide [Linzess] 145 mcg PO DAILY 08/09/18 Furosemide [Lasix -] 40 mg PO DAILY #30 tablet MDD 1 08/10/18 Pantoprazole Sodium [Protonix -] 40 mg PO DAILY #30 tablet.ec MDD 1 08/10/18 Aspirin Coated [Ecotrin -] 81 mg PO DAILY tablet.ec 08/12/18 Insulin Lispro Protamin/Lispro [Humalog Mix 50-50 Kwikpen] 25 units SQ BID 10/08 Losartan Potassium 1 tab PO DAILY 10/08/18 Metoprolol Succinate 1 tab PO DAILY 10/08/18 Ranitidine [Zantac -] 1 tab PO DAILY 10/08/18 Family Disease History - Family Disease History Family Disease History: Diabetes: Mother (: DM II complications), Sister (6 , 1 of old age), Other: Father (: CVA), Mother, Brother (3, 2 from "Old age", 1 from Lung Ca), Sister, Son (5, healthy), Daughter (1, healthy) Review of Systems - Review of Systems Constitutional: reports: Malaise, Weakness Eyes: reports: No Symptoms HENT: reports: No Symptoms Neck: reports: No Symptoms Cardiovascular: reports: No Symptoms Gastrointestinal: reports: No Symptoms Genitourinary: reports: No Symptoms Musculoskeletal: reports: No Symptoms Integumentary: reports: No Symptoms Neurological: reports: No Symptoms Endocrine: reports: No Symptoms Hematology/Lymphatic: reports: No Symptoms Psychiatric: reports: No Symptoms Physical Exam Vital Signs: Vital Signs Temperature 98.0 F 10/10/18 07:14 Pulse Rate 68 10/10/18 07:14 Respiratory Rate 20 10/10/18 07:14 Blood Pressure 131/56 L 10/10/18 07:14 O2 Sat by Pulse Oximetry (%) 97 10/09/18 22:00 Constitutional: Yes: Calm Eyes: Yes: Conjunctiva Clear HENT: Yes: Atraumatic Neck: Yes: Supple Cardiovascular: Yes: S1, S2 Respiratory: Yes: CTA Bilaterally Gastrointestinal: Yes: Soft, Abdomen, Obese Renal/: Yes: WNL Musculoskeletal: Yes: WNL Edema: Yes Edema: LLE: Trace, RLE: Trace Neurological: Yes: Oriented Psychiatric: Yes: Oriented Labs: CBC, BMP 10/10/18 07:00 10/10/18 06:00 Laboratory Tests 02/21/17 02/24/17 09/10/17 18:00 08:00 05:15 Hgb BUN Creatinine Est GFR (CKD-EPI)NonAf Urine Protein Protein/Creatinin Ratio 4.91 Stool Occult Blood MALLORY Screen Positive H Free [place] LC, Quant 47.1 H 09/10/17 08/09/18 08/10/18 05:15 10: 06:00 Hgb BUN Creatinine Est GFR (CKD-EPI)NonAf 41.82 38.24 Urine Protein Protein/Creatinin Ratio Stool Occult Blood MALLORY Screen Free [place] LC, Quant 38.5 H 08/10/18 08/10/18 08/10/18 06:00 09:15 17:45 Hgb BUN Creatinine Est GFR (CKD-EPI)NonAf 38.24 Urine Protein 2+ H Protein/Creatinin Ratio Stool Occult Blood MALLORY Screen Free [place] LC, Quant 49.9 H 08/11/18 10/08/18 10/08/18 10:35 11:39 11:39 Hgb 8.8 L BUN Creatinine Est GFR (CKD-EPI)NonAf 38.24 38.24 Urine Protein Protein/Creatinin Ratio Stool Occult Blood MALLORY Screen Free [place] LC, Quant 10/08/18 10/09/18 10/09/18 17:47 07:30 07:30 Hgb 9.2 L BUN Creatinine Est GFR (CKD-EPI)NonAf 41.82 Urine Protein Protein/Creatinin Ratio Stool Occult Blood Negative MALLORY Screen Free [place] LC, Quant 10/10/18 10/10/18 06:00 07:00 Hgb 9.3 L BUN 32.9 H Creatinine 1.2 Est GFR (CKD-EPI)NonAf 46.07 Urine Protein Protein/Creatinin Ratio Stool Occult Blood MALLORY Screen Free [place] LC, Quant Imaging - Results Chest X-ray: Report Reviewed Problem List - Problems (1) CKD (chronic kidney disease) Code(s): N18.9 - CHRONIC KIDNEY DISEASE, UNSPECIFIED (2) Proteinuria Code(s): R80.9 - PROTEINURIA, UNSPECIFIED (3) Symptomatic anemia Code(s): D64.9 - ANEMIA, UNSPECIFIED (4) Asthma Code(s): J45.909 - UNSPECIFIED ASTHMA, UNCOMPLICATED (5) CAD (coronary artery disease) Code(s): I25.10 - ATHSCL HEART DISEASE OF [place] CORONARY ARTERY W/O ANG PCTRS (6) COPD (chronic obstructive pulmonary disease) Code(s): J44.9 - CHRONIC OBSTRUCTIVE PULMONARY DISEASE, UNSPECIFIED (7) DM2 (diabetes mellitus, type 2) Code(s): E11.9 - TYPE 2 DIABETES MELLITUS WITHOUT COMPLICATIONS Assessment/Plan Current Medications Generic Name Dose Route Start Last Admin Trade Name Freq PRN Reason Stop Dose Admin Aspirin 81 mg 10/10/18 10:00 10/10/18 10:15 Ecotrin - PO 81 mg DAILY ALEE Administration Atorvastatin Calcium 80 mg 10/08/18 22:00 10/09/18 21:42 Lipitor - PO 80 mg HS ALEE Administration Colloidal Oatmeal 1 applic 10/10/18 10:40 10/10/18 11:24 Aveeno Soap - TP 1 applic DAILY PRN Administration HYGEINE Ferrous Sulfate 325 mg 10/09/18 10:00 10/10/18 10:15 Feosol - PO 325 mg DAILY ALEE Administration Furosemide 40 mg 10/09/18 10:00 10/10/18 10:15 Lasix - PO 40 mg DAILY ALEE Administration Insulin Aspart 45 units 10/10/18 16:30 Novolog Mix 70/30 Vial SQ BIDAC ALEE Insulin Aspart 1 vial 10/10/18 11:47 Novolog Vial Sliding Scale - SQ TIDAC [facility] Protocol Metoprolol Succinate 50 mg 10/09/18 10:00 10/10/18 10:15 Toprol Xl - PO 50 mg DAILY ALEE Administration Nystatin/Triamcinolone Acetonide 2 applic 10/10/18 22:00 Mycolog Ii Cream - TP BID ALEE Pantoprazole Sodium 40 mg 10/09/18 10:00 10/10/18 10:15 Protonix - PO 40 mg DAILY ALEE Administration Ranitidine HCl 150 mg 10/09/18 10:00 10/10/18 10:15 Zantac - PO 150 mg DAILY ALEE Administration Impression 1. CKD 2. proteinuria 3. elevated kappa chains with abnormal ratio 4. symptomatic anemia 5. DM 6. obesity 7. cad 8. chf 9. hx of positive mallory Plan - check ua - send urine prt to rn telemetry ratio - repeat spep and light chains - heme onc eval for bm if needed - follow iron levels - dm and obesity can explain proteinuria as well - discussed plan with pt at length
[2018-10-10] MEDS: INSULIN (NOVOLOG MIX 70/30) 100 UNITS/ML MDV SQ SCH (16:15)
--- NOTE | 2018-10-10 16:44 | PN ---
Progress Note (short form) - Note Progress Note: PULMONARY CONSULTATION DICTATED 10/10/18 IMP DYSPNEA/WEAKNESS SECONDARY TO ANEMIA SYMPTOMATIC ANEMIA CHF CHRONIC KIDNEY INJURY LIKELY OSAS ASTHMA HTN HLD PLAN O2 NEEDED LASIX INHALED BRONCHODILATORS NORMAL TRANSFUSION THRESHOLD MONITOR H+H MONITOR LYTES,RENAL FUNCTION SLEEP SCREEN DR MANN Problem List - Problems (1) CKD (chronic kidney disease) Code(s): N18.9 - CHRONIC KIDNEY DISEASE, UNSPECIFIED (2) Proteinuria Code(s): R80.9 - PROTEINURIA, UNSPECIFIED (3) Symptomatic anemia Code(s): D64.9 - ANEMIA, UNSPECIFIED (4) Anemia Code(s): D64.9 - ANEMIA, UNSPECIFIED Qualifiers: Anemia type: unspecified type Qualified Code(s): D64.9 - Anemia, unspecified (5) Asthma Code(s): J45.909 - UNSPECIFIED ASTHMA, UNCOMPLICATED (6) CAD (coronary artery disease) Code(s): I25.10 - ATHSCL HEART DISEASE OF [place] CORONARY ARTERY W/O ANG PCTRS (7) DM2 (diabetes mellitus, type 2) Code(s): E11.9 - TYPE 2 DIABETES MELLITUS WITHOUT COMPLICATIONS (8) Shortness of breath Code(s): R06.02 - SHORTNESS OF BREATH (9) Sleep apnea Code(s): G47.30 - SLEEP APNEA, UNSPECIFIED
--- NOTE | 2018-10-10 18:31 | CONS ---
PULMONARY CONSULTATION DATE OF CONSULTATION: 10/10/2018 REFERRING PHYSICIAN: Rigo Payne MD The patient is a 68-year-old white-[place] female with past medical history of ASHD, status post stent; CHF; diabetes; hypertension; hyperlipidemia; asthma; pneumonia; nonsmoker; admitted to [facility] on October 08 with increasing shortness of breath, dyspnea on exertion, and feeling tired. Of note , patient has history of chronic anemia and has had multiple transfusions in the past, had a GI workup which was negative. She is awaiting capsule endoscopy. Patient on admission was noted to have a hemoglobin of 8.5. She was referred to the hospital for further workup. Patient denies any chest pain , nausea, vomiting, or diaphoresis. She is a nonsmoker. She denies any history of occupational exposure to chemicals or fumes. On admission, she was evaluated by Dr. Sahu for renal consultation, as well as Dr. Graham for Hematology and Dr. Alvarado for GI consultation. Patient does have a history of chronic kidney disease. PAST MEDICAL HISTORY: Again includes CHF; ASHD, status post stents; chronic kidney disease; hypertension; hyperlipidemia; diabetes; anemia; and asthma. SOCIAL HISTORY: Born in [place], moved to the [facility] many years ago. No occupational exposures. Nonsmoker. REVIEW OF SYSTEMS: Dyspnea. Positive weakness. Positive dyspnea on exertion. No chest pain. No palpitations. No cough. No hemoptysis. No abdominal pain. No lower extremity edema. CURRENT MEDICATIONS: Include Mycolog, Toprol, Zantac, Lipitor, NovoLog, Feosol, Lasix, Ecotrin, Protonix. PHYSICAL EXAMINATION: General: The patient is a morbidly obese female, well awake, alert, in no acute distress. Vital Signs: She is currently afebrile. Respiratory rate is 20. Blood pressure 137/70. O2 saturation was 97% on room air. HEENT: Normocephalic, atraumatic. Neck: Supple. Heart: Regular. S1, S2. Chest: Clear. Abdomen: Soft. Bowel sounds are positive. Extremities: No cyanosis or edema. LABORATORY DATA: WBC is 6.3, hemoglobin 9.3, hematocrit 28.1. BUN 32, creatinine 1.2. Chest x-ray: No infiltrates. No effusions. Decreased congestion, mildly widened mediastinum. Chest CT from February: No evidence of pulmonary embolism, cardiomegaly, thyromegaly. IMPRESSION: 1. Dyspnea and weakness secondary to symptomatic anemia. 2. Chronic kidney disease. 3. History of asthma, currently stable. 4. Hypertension. 5. Atherosclerotic heart disease, status post stent. 6. History of congestive heart failure. 7. Diabetes. 8. Likely obstructive sleep apnea. PLAN: Normal transfusion threshold, O2 as needed, GI workup in progress, inhaled bronchodilators p.r.n. Will also order sleep screen. Also, consider bariatric surgery evaluation. CHINO MANN M.D. [id number] MTDD
[2018-10-10] MEDS: ATORVASTATIN CA 40 MG TABLET (FP) PO SCH (21:09)
--- NOTE | 2018-10-10 21:50 | CONSULT ---
Consult Consult Specialty:: endocrine Referred by:: dr.ammir gregory Reason for Consultation:: diabetes mellitus uncontrolled - History of Present Illness Chief Complaint: high sugars /anemia History of Present Illness: 68 yo F history DM2, CHF, CAD, HTN, HL, anemia, asthma presents with symptoms shortness of breath even at rest,weakness,tired,and cold. Patient has history of anemia, unknown source. Has had negative GI workup so far, guaiac negative. Denies dark stools. Last Hb as an outpatient was 8, and she has been feeling SOB and tired. Denies cp, abd pain, N/V/D.she checks her sugars yet has not been to control high sugars,she feels its her diet and pain in her joints lack of activity, she has vision impairment and limited mobility. - Past Medical History Cardio/Vascular: Yes: CAD (S/P STENTING), HTN, Hyperlipdemia Pulmonary: Yes: Asthma, Bronchitis, Pneumonia, Sleep Apnea Gastrointestinal: Yes: GERD Renal/: Yes: Renal Inusuff Musculoskeletal: Yes: Osteoarthritis Endocrine: Yes: Diabetes Mellitus - Alcohol/Substance Use Hx Alcohol Use: No History of Substance Use: reports: None - Smoking History Smoking history: Unknown if ever smoked Have you smoked in the past 12 months: No Aproximately how many cigarettes per day: 0 - Social History Usual Living Arrangement: With Spouse ADL: Family Assistance Occupation: [employer] History of Recent Travel: No Home Medications - Allergies Allergies/Adverse Reactions: Allergies Allergy/AdvReac Type Severity Reaction Status Date / Time Penicillins Allergy Difficulty Verified 03/21/18 11:56 Breathing - Home Medications Home Medications: Ambulatory Orders Atorvastatin Ca [Lipitor] 80 mg PO HS 08/09/18 Ferrous Sulfate 325 mg PO DAILY 08/09/18 Linaclotide [Linzess] 145 mcg PO DAILY 08/09/18 Furosemide [Lasix -] 40 mg PO DAILY #30 tablet MDD 1 08/10/18 Pantoprazole Sodium [Protonix -] 40 mg PO DAILY #30 tablet.ec MDD 1 08/10/18 Aspirin Coated [Ecotrin -] 81 mg PO DAILY tablet.ec 08/12/18 Insulin Lispro Protamin/Lispro [Humalog Mix 50-50 Kwikpen] 25 units SQ BID 10/08 Losartan Potassium 1 tab PO DAILY 10/08/18 Metoprolol Succinate 1 tab PO DAILY 10/08/18 Ranitidine [Zantac -] 1 tab PO DAILY 10/08/18 Family Disease History - Family Disease History Family Disease History: Diabetes: Mother (: DM II complications), Sister (6 , 1 of old age), Other: Father (: CVA), Mother, Brother (3, 2 from "Old age", 1 from Lung Ca), Sister, Son (5, healthy), Daughter (1, healthy) Review of Systems - Review of Systems Constitutional: reports: Weakness Eyes: reports: Blurred Vision HENT: reports: No Symptoms Neck: reports: No Symptoms Cardiovascular: reports: Shortness of Breath Respiratory: reports: Exercise Intolerance, Orthopnea, SOB, SOB on Exertion Gastrointestinal: reports: Bloating, Nausea Genitourinary: reports: No Symptoms Breasts: reports: No Symptoms Reported Musculoskeletal: reports: Muscle Pain, Muscle Cramps, Muscle Weakness Neurological: reports: Numbness, Unsteady Gait, Weakness Endocrine: reports: Increased Hunger, Unexplained Weight Gain Physical Exam Vital Signs: Vital Signs Temperature 99.4 F 10/10/18 14:34 Pulse Rate 71 10/10/18 14:34 Respiratory Rate 19 10/10/18 09:00 Blood Pressure 137/70 10/10/18 14:34 O2 Sat by Pulse Oximetry (%) 98 10/10/18 09:00 Constitutional: Yes: Calm Eyes: Yes: EOM Intact HENT: Yes: Normocephalic Neck: Yes: Trachea Midline Cardiovascular: Yes: Regular Rate and Rhythm Respiratory: Yes: CTA Bilaterally Gastrointestinal: Yes: Normal Bowel Sounds ...Rectal Exam: Yes: Deferred Renal/: Yes: WNL Musculoskeletal: Yes: WNL, Joint Stiffness, Muscle Pain Extremities: Yes: Delayed Capillary Refill Edema: Yes Edema: LLE: Trace, RLE: Trace Integumentary: Yes: Rash, Onychomycosis, Venous Stasis Changes Neurological: Yes: Alert, Oriented Labs: CBC, BMP 10/10/18 07:00 10/10/18 06:00 Problem List - Problems (1) CKD (chronic kidney disease) Code(s): N18.9 - CHRONIC KIDNEY DISEASE, UNSPECIFIED (2) Proteinuria Code(s): R80.9 - PROTEINURIA, UNSPECIFIED (3) Symptomatic anemia Code(s): D64.9 - ANEMIA, UNSPECIFIED (4) HORACE (acute kidney injury) Code(s): N17.9 - ACUTE KIDNEY FAILURE, UNSPECIFIED (5) Acute exacerbation of CHF (congestive heart failure) Code(s): I50.9 - HEART FAILURE, UNSPECIFIED Qualifiers: Heart failure type: unspecified Qualified Code(s): I50.9 - Heart failure, unspecified (6) Acute hypoxemic respiratory failure Code(s): J96.01 - ACUTE RESPIRATORY FAILURE WITH HYPOXIA (7) Anemia Code(s): D64.9 - ANEMIA, UNSPECIFIED Qualifiers: Anemia type: unspecified type Qualified Code(s): D64.9 - Anemia, unspecified Assessment/Plan Current Active Problems dm 2 uncontrolled diabetic neuropathy diabetic nephropathy CKD (chronic kidney disease) (Acute) Proteinuria (Acute) Symptomatic anemia (Acute) Abnormal Lab Results 10/10/18 10/10/18 06:00 07:00 RBC 3.35 L Hgb 9.3 L Hct 28.1 L RDW 17.4 H Anion Gap 6 L BUN 32.9 H Random Glucose 286 H B-Natriuretic Peptide 1278.9 H Laboratory Results - last 24 hr 10/10/18 10/10/18 10/10/18 05:57 06:00 07:00 WBC 6.3 RBC 3.35 L Hgb 9.3 L Hct 28.1 L MCV 84.0 MCH 27.9 MCHC 33.2 RDW 17.4 H Plt Count 199 MPV 10.5 Sodium 139 Potassium 4.4 Chloride 103 Carbon Dioxide 30 Anion Gap 6 L BUN 32.9 H Creatinine 1.2 Est GFR (CKD-EPI)AfAm 53.40 Est GFR (CKD-EPI)NonAf 46.07 POC Glucometer 304 Random Glucose 286 H Calcium 8.8 B-Natriuretic Peptide 1278.9 H 10/10/18 10/10/18 11:26 16:29 WBC RBC Hgb Hct MCV MCH MCHC RDW Plt Count MPV Sodium Potassium Chloride Carbon Dioxide Anion Gap BUN Creatinine Est GFR (CKD-EPI)AfAm Est GFR (CKD-EPI)NonAf POC Glucometer 373 294 Random Glucose Calcium B-Natriuretic Peptide plan: bgm qid novolog scale novolog 70/30 bid doses anemia workup iron replacement
[2018-10-10] MEDS: NYSTATIN/TRIAMCINOLONE TOPICAL CREAM 15 GM TUBE TP SCH (22:37)
[2018-10-11] MEDS: INSULIN SLIDING SCALE (NOVOLOG) 1 VIAL SQ SCH ×3 (06:29→17:36)
[2018-10-11] MEDS: INSULIN (NOVOLOG MIX 70/30) 100 UNITS/ML MDV SQ SCH ×2 (06:30→17:49)
[2018-10-11] MEDS ORDERED: PT OWN MED DRAWER 7, Y5N ONE ×2 (06:38→21:47)
[2018-10-11] MEDS ORDERED: INSULIN (NOVOLOG) ASPART 100 UNITS/ML 10ML VIAL ONE (06:38)
[2018-10-11] MEDS: COLLOIDAL OATMEAL 1 BAR EACH TP PRN (09:00)
[2018-10-11] MEDS: PANTOPRAZOLE 40 MG TABLET (FP) PO SCH (10:19)
[2018-10-11] MEDS: RANITIDINE HCL 150 MG TABLET (FP) PO SCH (10:20)
[2018-10-11] MEDS: FUROSEMIDE 40 MG TABLET (FP) PO SCH (10:21)
[2018-10-11] MEDS: ASPIRIN COATED 81 MG TABLET.EC PO SCH (10:21)
[2018-10-11] MEDS: FERROUS SO4 325 MG TABLET (FP) PO SCH (10:21)
[2018-10-11] MEDS: NYSTATIN/TRIAMCINOLONE TOPICAL CREAM 15 GM TUBE TP SCH ×2 (10:22→21:51)
[2018-10-11] MEDS ORDERED: ALBUTEROL SO4 2.5/IPRATROPIUM 0.5 INH SOL 3 ML VIAL.NEB. NEB PRN (10:50)
--- NOTE | 2018-10-11 10:50 | PN ---
Progress Note (short form) - Note Progress Note: PULMONARY Overnight sleep screen 44. Denies shortness of breath, cough or wheezing. Vital Signs Period Temp Pulse Resp BP Sys/Lee Pulse Ox Last 24 Hr 97.7 F-99.4 F 71-80 19-20 132-155/65-75 98 Gen: NAD at rest Heart: RRR Lung: decreased breath sounds at the bases Abd: soft, nontender Ext: no edema CBC, BMP 10/10/18 07:00 10/10/18 06:00 Active Medications Aspirin (Ecotrin -) 81 mg PO DAILY [facility] Last Admin: 10/11/18 10:21 Dose: 81 mg Atorvastatin Calcium (Lipitor -) 80 mg PO HS [facility] Last Admin: 10/10/18 21:09 Dose: 80 mg Colloidal Oatmeal (Aveeno Soap -) 1 applic TP DAILY PRN PRN Reason: HYGEINE Last Admin: 10/10/18 11:24 Dose: 1 applic Ferrous Sulfate (Feosol -) 325 mg PO DAILY [facility] Last Admin: 10/11/18 10:21 Dose: 325 mg Furosemide (Lasix -) 40 mg PO DAILY [facility] Last Admin: 10/11/18 10:21 Dose: 40 mg Insulin Aspart (Novolog Mix 70/30 Vial) 45 units SQ BIDAC [facility] Last Admin: 10/11/18 06:30 Dose: 35 units Insulin Aspart (Novolog Vial Sliding Scale -) 1 vial SQ TIDAC [facility]; Protocol Last Admin: 10/11/18 06:29 Dose: 14 units Metoprolol Succinate (Toprol Xl -) 50 mg PO DAILY [facility] Last Admin: 10/11/18 10:20 Dose: Not Given Nystatin/Triamcinolone Acetonide (Mycolog Ii Cream -) 2 applic TP BID [facility] Last Admin: 10/11/18 10:22 Dose: 2 applic Pantoprazole Sodium (Protonix -) 40 mg PO DAILY [facility] Last Admin: 10/11/18 10:19 Dose: Not Given Ranitidine HCl (Zantac -) 150 mg PO DAILY [facility] Last Admin: 10/11/18 10:20 Dose: Not Given A/P Symptomatic Anemia LV Diastolic Dysfunction Asthma CKD Suspect TERENCE HTN Hyperlipidemia - monitor H/H - transfuse as needed - O2 to keep Spo2 >90% - inhaled bronchodilators as needed - will need formal sleep study as outpt - DVT prophylaxis
[2018-10-11 12:59] VITALS: BMI 45.3
--- NOTE | 2018-10-11 13:30 | PN ---
Progress Note, Physician Chief Complaint: Chronic Anemia DM CHF History of Present Illness: previous notes and events reviewed awake and alert NAD denies complaints of chest pain or SOB current Hg 9.3 - Current Medication List Current Medications: Active Medications Albuterol/Ipratropium (Duoneb -) 1 amp NEB Q6H PRN PRN Reason: SHORTNESS OF BREATH Aspirin (Ecotrin -) 81 mg PO DAILY [facility] Last Admin: 10/11/18 10:21 Dose: 81 mg Atorvastatin Calcium (Lipitor -) 80 mg PO HS [facility] Last Admin: 10/10/18 21:09 Dose: 80 mg Colloidal Oatmeal (Aveeno Soap -) 1 applic TP DAILY PRN PRN Reason: HYGEINE Last Admin: 10/10/18 11:24 Dose: 1 applic Ferrous Sulfate (Feosol -) 325 mg PO DAILY [facility] Last Admin: 10/11/18 10:21 Dose: 325 mg Furosemide (Lasix -) 40 mg PO DAILY [facility] Last Admin: 10/11/18 10:21 Dose: 40 mg Insulin Aspart (Novolog Mix 70/30 Vial) 45 units SQ BIDAC [facility] Last Admin: 10/11/18 06:30 Dose: 35 units Insulin Aspart (Novolog Vial Sliding Scale -) 1 vial SQ TIDAC [facility]; Protocol Last Admin: 10/11/18 12:26 Dose: 14 units Metoprolol Succinate (Toprol Xl -) 50 mg PO DAILY [facility] Last Admin: 10/11/18 10:20 Dose: Not Given Nystatin/Triamcinolone Acetonide (Mycolog Ii Cream -) 2 applic TP BID [facility] Last Admin: 10/11/18 10:22 Dose: 2 applic Pantoprazole Sodium (Protonix -) 40 mg PO DAILY [facility] Last Admin: 10/11/18 10:19 Dose: Not Given Ranitidine HCl (Zantac -) 150 mg PO DAILY [facility] Last Admin: 10/11/18 10:20 Dose: Not Given - Objective Vital Signs: Vital Signs Temperature 97.7 F 10/11/18 07:03 Pulse Rate 71 10/11/18 07:03 Respiratory Rate 20 10/11/18 07:03 Blood Pressure 155/71 10/11/18 07:03 O2 Sat by Pulse Oximetry (%) 98 10/10/18 22:00 Constitutional: Yes: No Distress, Calm, Obese Eyes: Yes: Conjunctiva Clear HENT: Yes: Atraumatic Cardiovascular: Yes: Regular Rate and Rhythm Respiratory: Yes: Regular, CTA Bilaterally Gastrointestinal: Yes: Normal Bowel Sounds, Soft, Abdomen, Obese Musculoskeletal: Yes: Muscle Weakness Extremities: Yes: WNL Edema: Yes Neurological: Yes: Alert, Pre-Existing Deficit Psychiatric: Yes: Alert Labs: CBC, BMP 10/10/18 07:00 10/10/18 06:00 INR, PTT INR 1.03 (0.83-1.09) 10/08/18 11:39 Problem List - Problems (1) CKD (chronic kidney disease) Assessment/Plan: -Renal on board -BUN/Cr 32.9/1.2 -monitor renal function daily Code(s): N18.9 - CHRONIC KIDNEY DISEASE, UNSPECIFIED (2) Acute exacerbation of CHF (congestive heart failure) Assessment/Plan: -1L fluid restriction -daily weights -Furosemide Code(s): I50.9 - HEART FAILURE, UNSPECIFIED Qualifiers: Heart failure type: unspecified Qualified Code(s): I50.9 - Heart failure, unspecified (3) Anemia Assessment/Plan: -GI and Hematology on board -Gammaglobulinemia VS Small Bowel bleed -Iron panel pending -Hematology work up in progress -will need video capsule as outpatient -Hg 9.2 -monitor Hg daily -reserve transfusion for Hg <7.0 to avoid fluid overload -Ferrous Sulfate Code(s): D64.9 - ANEMIA, UNSPECIFIED Qualifiers: Anemia type: unspecified type Qualified Code(s): D64.9 - Anemia, unspecified (4) CAD (coronary artery disease) Assessment/Plan: -Aspirin and Atorvastatin Code(s): I25.10 - ATHSCL HEART DISEASE OF [place] CORONARY ARTERY W/O ANG PCTRS (5) COPD (chronic obstructive pulmonary disease) Assessment/Plan: -Keep SpO2 >90% O2 via [place] Code(s): J44.9 - CHRONIC OBSTRUCTIVE PULMONARY DISEASE, UNSPECIFIED (6) Constipation Assessment/Plan: -Miralax 17g x 1 dose Code(s): K59.00 - CONSTIPATION, UNSPECIFIED (7) DM2 (diabetes mellitus, type 2) Assessment/Plan: -BGM ACHS -Novolog 70/30 BIDAC -ISS -Diabetic diet Code(s): E11.9 - TYPE 2 DIABETES MELLITUS WITHOUT COMPLICATIONS (8) HLD (hyperlipidemia) Assessment/Plan: -Atorvastatin Code(s): E78.5 - HYPERLIPIDEMIA, UNSPECIFIED (9) Hypertension Assessment/Plan: -Metoprolol Code(s): I10 - ESSENTIAL (PRIMARY) HYPERTENSION Assessment/Plan see problem list dvt ppx
[2018-10-11] MEDS ORDERED: POLYETHYLENE GLYCOL 3350 119 GM BTL PO ONE (13:33)
--- NOTE | 2018-10-11 15:13 | PN ---
Progress Note, Physician History of Present Illness: Pt seen and examined at bedside. She is awake and alert. She denies shortness of breath. - Current Medication List Current Medications: Active Medications Albuterol/Ipratropium (Duoneb -) 1 amp NEB Q6H PRN PRN Reason: SHORTNESS OF BREATH Aspirin (Ecotrin -) 81 mg PO DAILY [facility] Last Admin: 10/11/18 10:21 Dose: 81 mg Atorvastatin Calcium (Lipitor -) 80 mg PO HS [facility] Last Admin: 10/10/18 21:09 Dose: 80 mg Colloidal Oatmeal (Aveeno Soap -) 1 applic TP DAILY PRN PRN Reason: HYGEINE Last Admin: 10/10/18 11:24 Dose: 1 applic Ferrous Sulfate (Feosol -) 325 mg PO DAILY [facility] Last Admin: 10/11/18 10:21 Dose: 325 mg Furosemide (Lasix -) 40 mg PO DAILY [facility] Last Admin: 10/11/18 10:21 Dose: 40 mg Insulin Aspart (Novolog Mix 70/30 Vial) 45 units SQ BIDAC [facility] Last Admin: 10/11/18 06:30 Dose: 35 units Insulin Aspart (Novolog Vial Sliding Scale -) 1 vial SQ TIDAC [facility]; Protocol Last Admin: 10/11/18 12:26 Dose: 14 units Metoprolol Succinate (Toprol Xl -) 50 mg PO DAILY [facility] Last Admin: 10/11/18 10:20 Dose: Not Given Nystatin/Triamcinolone Acetonide (Mycolog Ii Cream -) 2 applic TP BID [facility] Last Admin: 10/11/18 10:22 Dose: 2 applic Pantoprazole Sodium (Protonix -) 40 mg PO DAILY [facility] Last Admin: 10/11/18 10:19 Dose: Not Given Ranitidine HCl (Zantac -) 150 mg PO DAILY [facility] Last Admin: 10/11/18 10:20 Dose: Not Given - Objective Vital Signs: Vital Signs Temperature 98 F 10/11/18 14:06 Pulse Rate 74 10/11/18 14:06 Respiratory Rate 20 10/11/18 14:06 Blood Pressure 151/59 L 10/11/18 14:06 O2 Sat by Pulse Oximetry (%) 96 10/11/18 09:00 Constitutional: Yes: Calm Eyes: Yes: Conjunctiva Clear HENT: Yes: Atraumatic Neck: Yes: Supple Cardiovascular: Yes: S1, S2 Respiratory: Yes: CTA Bilaterally Gastrointestinal: Yes: Soft, Abdomen, Obese Genitourinary: Yes: WNL Musculoskeletal: Yes: WNL Edema: No Neurological: Yes: Oriented Psychiatric: Yes: Oriented Labs: CBC, BMP 10/10/18 07:00 10/10/18 06:00 INR, PTT INR 1.03 (0.83-1.09) 10/08/18 11:39 Problem List - Problems (1) CKD (chronic kidney disease) Code(s): N18.9 - CHRONIC KIDNEY DISEASE, UNSPECIFIED (2) Proteinuria Code(s): R80.9 - PROTEINURIA, UNSPECIFIED (3) Symptomatic anemia Code(s): D64.9 - ANEMIA, UNSPECIFIED (4) Asthma Code(s): J45.909 - UNSPECIFIED ASTHMA, UNCOMPLICATED (5) CAD (coronary artery disease) Code(s): I25.10 - ATHSCL HEART DISEASE OF [place] CORONARY ARTERY W/O ANG PCTRS (6) COPD (chronic obstructive pulmonary disease) Code(s): J44.9 - CHRONIC OBSTRUCTIVE PULMONARY DISEASE, UNSPECIFIED (7) DM2 (diabetes mellitus, type 2) Code(s): E11.9 - TYPE 2 DIABETES MELLITUS WITHOUT COMPLICATIONS Assessment/Plan Current Medications Generic Name Dose Route Start Last Admin Trade Name Freq PRN Reason Stop Dose Admin Albuterol/Ipratropium 1 amp 10/11/18 10:50 Duoneb - NEB Q6H PRN SHORTNESS OF BREATH Aspirin 81 mg 10/10/18 10:00 10/11/18 10:21 Ecotrin - PO 81 mg DAILY [facility] Administration Atorvastatin Calcium 80 mg 10/08/18 22:00 10/10/18 21:09 Lipitor - PO 80 mg HS [facility] Administration Colloidal Oatmeal 1 applic 10/10/18 10:40 10/10/18 11:24 Aveeno Soap - TP 1 applic DAILY PRN Administration HYGEINE Ferrous Sulfate 325 mg 10/09/18 10:00 10/11/18 10:21 Feosol - PO 325 mg DAILY [facility] Administration Furosemide 40 mg 10/09/18 10:00 10/11/18 10:21 Lasix - PO 40 mg DAILY [facility] Administration Insulin Aspart 45 units 10/10/18 16:30 10/11/18 06:30 Novolog Mix 70/30 Vial SQ 35 units BIDAC [facility] Administration Insulin Aspart 1 vial 10/10/18 21:53 10/11/18 12:26 Novolog Vial Sliding Scale - SQ 14 units TIDAC [facility] Administration Protocol Metoprolol Succinate 50 mg 10/09/18 10:00 10/11/18 10:20 Toprol Xl - PO Not Given DAILY [facility] Nystatin/Triamcinolone Acetonide 2 applic 10/10/18 22:00 10/11/18 10:22 Mycolog Ii Cream - TP 2 applic BID [facility] Administration Pantoprazole Sodium 40 mg 10/09/18 10:00 10/11/18 10:19 Protonix - PO Not Given DAILY [facility] Ranitidine HCl 150 mg 10/09/18 10:00 10/11/18 10:20 Zantac - PO Not Given DAILY [facility] Impression 1. CKD 2. proteinuria 3. elevated kappa chains with abnormal ratio 4. symptomatic anemia 5. DM 6. obesity 7. cad 8. chf 9. hx of positive mallory Plan - follow urine studies - follow spep - follow light chains - discussed diet - discussed with family
[2018-10-11] MEDS: ATORVASTATIN CA 40 MG TABLET (FP) PO SCH (21:49)
[2018-10-12] MEDS: INSULIN (NOVOLOG MIX 70/30) 100 UNITS/ML MDV SQ SCH ×2 (06:26→17:01)
[2018-10-12] MEDS: INSULIN SLIDING SCALE (NOVOLOG) 1 VIAL SQ SCH ×3 (06:27→16:58)
[2018-10-12 07:45] VITALS: PULSE 78; TEMP 98
[2018-10-12 07:48] LABS: HEMATOCRIT 28.6 % (32.4-45.2); HEMOGLOBIN 9.5 GM/dL (10.7-15.3); MCH 27.6 pg (25.7-33.7); MCHC 33.1 g/dl (32.0-36.0); MEAN CELL VOLUME 83.3 fl (80-96); MEAN PLT VOLUME 10.7 fl (7.5-11.1); RBC 3.43 M/mm3 (3.60-5.2); RDW 16.9 % (11.6-15.6)
[2018-10-12 08:08] LABS: SERUM IRON SATURATION 16 % (15-55); TOTAL IRON BINDING CAPACITY 263 ug/dL (250-450)
[2018-10-12 08:09] LABS: BILIRUBIN,TOTAL 0.5 mg/dL (0.2-1); BLOOD UREA NITROGEN 38.5 mg/dL (7-18); CALCIUM 8.7 mg/dL (8.5-10.1); CREATININE 1.2 mg/dL (0.55-1.3); POTASSIUM 4.7 mmol/L (3.5-5.1); TOT PROT 6.4 g/dl (6.4-8.2)
[2018-10-12 08:31] LABS: PLATELET COUNT 202 K/MM3 (134-434)
[2018-10-12] MEDS: FUROSEMIDE 40 MG TABLET (FP) PO SCH (09:35)
[2018-10-12] MEDS: RANITIDINE HCL 150 MG TABLET (FP) PO SCH ×2 (09:35→09:46)
[2018-10-12] MEDS: PANTOPRAZOLE 40 MG TABLET (FP) PO SCH ×2 (09:35→09:46)
[2018-10-12] MEDS: NYSTATIN/TRIAMCINOLONE TOPICAL CREAM 15 GM TUBE TP SCH (09:35)
[2018-10-12] MEDS: ASPIRIN COATED 81 MG TABLET.EC PO SCH (09:35)
[2018-10-12] MEDS: FERROUS SO4 325 MG TABLET (FP) PO SCH (09:35)
[2018-10-12 09:49] VITALS: BP 144/70
[2018-10-12 12:30] LABS: EPI CELLS 2.7 /HPF (0-5/HPF); HYALINE CASTS 0 /lpf (0-8); PH,URINE 6.5 (5.0-8.0); URINE APPEARANCE CLEAR; URINE BACTERIA 154.1 /hpf (NEGATIVE); URINE BILIRUBIN NEGATIVE (NEGATIVE); URINE COLOR YELLOW; URINE GLUCOSE (UA) NEGATIVE (NEGATIVE); URINE KETONE NEGATIVE (NEGATIVE); URINE LEUK ESTERASE 2+ (NEGATIVE); URINE NITRITE NEGATIVE (NEGATIVE); URINE PROTEIN 2+ (NEGATIVE); URINE RBC 1 /hpf (0-4); URINE UROBILINOGEN 0.2 mg/dL (0.2-1.0); URINE WBC 69 /hpf (0-5)
[2018-10-12] MEDS ORDERED: POLYETHYLENE GLYCOL 3350 119 GM BTL PO ONE (12:38)
[2018-10-12 13:21] LABS: RATIO URIN PROTEIN/URIN CREAT 1.76 MG/DL
--- NOTE | 2018-10-12 13:37 | DS ---
Physical Examination Vital Signs: Vital Signs Temperature 98.0 F 10/12/18 07:40 Pulse Rate 78 10/12/18 07:40 Respiratory Rate 16 10/12/18 07:40 Blood Pressure 144/70 10/12/18 07:40 O2 Sat by Pulse Oximetry (%) 100 10/12/18 09:00 Findings/Remarks: Patient is a 68 y/o female with worsening SOB and fatigue. States her dyspnea and weakness is worsening as well. Patient has history of chronic anemia. Constitutional: Yes: No Distress, Calm Eyes: Yes: Conjunctiva Clear HENT: Yes: Atraumatic Cardiovascular: Yes: Regular Rate and Rhythm Respiratory: Yes: Regular, CTA Bilaterally Gastrointestinal: Yes: Normal Bowel Sounds, Soft, Abdomen, Obese Musculoskeletal: Yes: WNL Extremities: Yes: WNL Edema: No Neurological: Yes: Alert, Oriented Psychiatric: Yes: Alert, Oriented Labs: CBC, BMP 10/12/18 06:39 10/12/18 06:39 Discharge Summary Reason For Visit: SHORTNESS OF BREATH, SECONDARY ANEMIA Current Active Problems CKD (chronic kidney disease) (Acute) Proteinuria (Acute) Symptomatic anemia (Acute) Hospital Course: see progress notes Laboratory Tests 10/08/18 10/08/18 10/08/18 11:39 11:39 11:39 WBC 8.1 RBC 3.09 L Hgb 8.8 L Hct 26.7 L MCV 86.3 MCH 28.4 MCHC 33.0 RDW 15.1 D Plt Count 222 MPV 11.5 H Absolute Neuts (auto) 6.3 Neutrophils % 77.3 Lymphocytes % 14.5 D Monocytes % 5.9 Eosinophils % 2.0 D Basophils % 0.3 Nucleated RBC % 0 Retic Count 2.16 H D Haptoglobin 356 H PT with INR INR Sodium 135 L Potassium 5.9 H Chloride 102 Carbon Dioxide 29 Anion Gap 4 L BUN 34.1 H Creatinine 1.4 H Est GFR (CKD-EPI)AfAm 44.32 Est GFR (CKD-EPI)NonAf 38.24 POC Glucometer Random Glucose 369 H* Calcium 8.8 Phosphorus Magnesium Iron TIBC Iron Saturation Unsaturated IBC Transferrin 192 L Ferritin 80.3 Total Bilirubin 0.3 AST 18 ALT 15 Alkaline Phosphatase 75 LD Total 294 H B-Natriuretic Peptide Total Protein 6.6 Albumin 3.1 L TSH Urine Color Urine Appearance Urine pH Ur Specific Lucas Urine Protein Urine Glucose (UA) Urine Ketones Urine Blood Urine Nitrite Urine Bilirubin Urine Urobilinogen Ur Leukocyte Esterase Urine WBC (Auto) Urine RBC (Auto) Urine Casts (Auto) U Epithel Cells (Auto) Urine Bacteria (Auto) U Random Total Protein Urine Creatinine Protein/Creatinin Ratio Stool Occult Blood Double Strand DNA Ab Blood Type Antibody Screen Crossmatch 10/08/18 10/08/18 10/08/18 11:39 11:39 12:29 WBC RBC Hgb Hct MCV MCH MCHC RDW Plt Count MPV Absolute Neuts (auto) Neutrophils % Lymphocytes % Monocytes % Eosinophils % Basophils % Nucleated RBC % Retic Count Haptoglobin PT with INR 12.10 INR 1.03 Sodium Potassium Chloride Carbon Dioxide Anion Gap BUN Creatinine Est GFR (CKD-EPI)AfAm Est GFR (CKD-EPI)NonAf POC Glucometer Random Glucose Calcium Phosphorus Magnesium Iron TIBC Iron Saturation Unsaturated IBC Transferrin Ferritin Total Bilirubin AST ALT Alkaline Phosphatase LD Total B-Natriuretic Peptide Total Protein Albumin TSH Urine Color Urine Appearance Urine pH Ur Specific Lucas Urine Protein Urine Glucose (UA) Urine Ketones Urine Blood Urine Nitrite Urine Bilirubin Urine Urobilinogen Ur Leukocyte Esterase Urine WBC (Auto) Urine RBC (Auto) Urine Casts (Auto) U Epithel Cells (Auto) Urine Bacteria (Auto) U Random Total Protein Urine Creatinine Protein/Creatinin Ratio Stool Occult Blood Double Strand DNA Ab Blood Type Cancelled O POSITIVE Antibody Screen Cancelled Negative Crossmatch See Detail 10/08/18 10/08/18 10/08/18 14:20 17:47 21:52 WBC RBC Hgb Hct MCV MCH MCHC RDW Plt Count MPV Absolute Neuts (auto) Neutrophils % Lymphocytes % Monocytes % Eosinophils % Basophils % Nucleated RBC % Retic Count Haptoglobin PT with INR INR Sodium Potassium 4.9 Chloride Carbon Dioxide Anion Gap BUN Creatinine Est GFR (CKD-EPI)AfAm Est GFR (CKD-EPI)NonAf POC Glucometer 253 Random Glucose Calcium Phosphorus Magnesium Iron TIBC Iron Saturation Unsaturated IBC Transferrin Ferritin Total Bilirubin AST ALT Alkaline Phosphatase LD Total B-Natriuretic Peptide Total Protein Albumin TSH Urine Color Urine Appearance Urine pH Ur Specific Lucas Urine Protein Urine Glucose (UA) Urine Ketones Urine Blood Urine Nitrite Urine Bilirubin Urine Urobilinogen Ur Leukocyte Esterase Urine WBC (Auto) Urine RBC (Auto) Urine Casts (Auto) U Epithel Cells (Auto) Urine Bacteria (Auto) U Random Total Protein Urine Creatinine Protein/Creatinin Ratio Stool Occult Blood Negative Double Strand DNA Ab Blood Type Antibody Screen Crossmatch 10/09/18 10/09/18 10/09/18 05:47 07:30 07:30 WBC 6.5 RBC 3.32 L Hgb 9.2 L Hct 27.9 L MCV 84.2 MCH 27.9 MCHC 33.1 RDW 18.1 H Plt Count 203 MPV 10.3 D Absolute Neuts (auto) 4.7 Neutrophils % 72.3 Lymphocytes % 18.6 D Monocytes % 6.3 Eosinophils % 2.1 Basophils % 0.7 Nucleated RBC % 0 Retic Count Haptoglobin PT with INR INR Sodium 137 Potassium 4.9 Chloride 104 Carbon Dioxide 28 Anion Gap 5 L BUN 33.0 H Creatinine 1.3 Est GFR (CKD-EPI)AfAm 48.47 Est GFR (CKD-EPI)NonAf 41.82 POC Glucometer 316 Random Glucose 312 H* Calcium 8.6 Phosphorus 4.1 Magnesium 2.3 Iron TIBC Iron Saturation Unsaturated IBC Transferrin Ferritin Total Bilirubin 0.4 AST 6 L ALT 15 Alkaline Phosphatase 75 LD Total B-Natriuretic Peptide Total Protein 6.4 Albumin 3.1 L TSH 0.38 Urine Color Urine Appearance Urine pH Ur Specific Lucas Urine Protein Urine Glucose (UA) Urine Ketones Urine Blood Urine Nitrite Urine Bilirubin Urine Urobilinogen Ur Leukocyte Esterase Urine WBC (Auto) Urine RBC (Auto) Urine Casts (Auto) U Epithel Cells (Auto) Urine Bacteria (Auto) U Random Total Protein Urine Creatinine Protein/Creatinin Ratio Stool Occult Blood Double Strand DNA Ab Blood Type Antibody Screen Crossmatch 10/09/18 10/09/18 10/10/18 12:02 17:29 05:57 WBC RBC Hgb Hct MCV MCH MCHC RDW Plt Count MPV Absolute Neuts (auto) Neutrophils % Lymphocytes % Monocytes % Eosinophils % Basophils % Nucleated RBC % Retic Count Haptoglobin PT with INR INR Sodium Potassium Chloride Carbon Dioxide Anion Gap BUN Creatinine Est GFR (CKD-EPI)AfAm Est GFR (CKD-EPI)NonAf POC Glucometer [phone] Random Glucose Calcium Phosphorus Magnesium Iron TIBC Iron Saturation Unsaturated IBC Transferrin Ferritin Total Bilirubin AST ALT Alkaline Phosphatase LD Total B-Natriuretic Peptide Total Protein Albumin TSH Urine Color Urine Appearance Urine pH Ur Specific Lucas Urine Protein Urine Glucose (UA) Urine Ketones Urine Blood Urine Nitrite Urine Bilirubin Urine Urobilinogen Ur Leukocyte Esterase Urine WBC (Auto) Urine RBC (Auto) Urine Casts (Auto) U Epithel Cells (Auto) Urine Bacteria (Auto) U Random Total Protein Urine Creatinine Protein/Creatinin Ratio Stool Occult Blood Double Strand DNA Ab Blood Type Antibody Screen Crossmatch 10/10/18 10/10/18 10/10/18 06:00 07:00 07:00 WBC 6.3 RBC 3.35 L Hgb 9.3 L Hct 28.1 L MCV 84.0 MCH 27.9 MCHC 33.2 RDW 17.4 H Plt Count 199 MPV 10.5 Absolute Neuts (auto) Neutrophils % Lymphocytes % Monocytes % Eosinophils % Basophils % Nucleated RBC % Retic Count Haptoglobin PT with INR INR Sodium 139 Potassium 4.4 Chloride 103 Carbon Dioxide 30 Anion Gap 6 L BUN 32.9 H Creatinine 1.2 Est GFR (CKD-EPI)AfAm 53.40 Est GFR (CKD-EPI)NonAf 46.07 POC Glucometer Random Glucose 286 H Calcium 8.8 Phosphorus Magnesium Iron 44 TIBC Iron Saturation Unsaturated IBC Transferrin Ferritin Total Bilirubin AST ALT Alkaline Phosphatase LD Total B-Natriuretic Peptide 1278.9 H Total Protein Albumin TSH Urine Color Urine Appearance Urine pH Ur Specific Lucas Urine Protein Urine Glucose (UA) Urine Ketones Urine Blood Urine Nitrite Urine Bilirubin Urine Urobilinogen Ur Leukocyte Esterase Urine WBC (Auto) Urine RBC (Auto) Urine Casts (Auto) U Epithel Cells (Auto) Urine Bacteria (Auto) U Random Total Protein Urine Creatinine Protein/Creatinin Ratio Stool Occult Blood Double Strand DNA Ab Blood Type Antibody Screen Crossmatch 10/10/18 10/10/18 10/11/18 11:26 16:29 06:11 WBC RBC Hgb Hct MCV MCH MCHC RDW Plt Count MPV Absolute Neuts (auto) Neutrophils % Lymphocytes % Monocytes % Eosinophils % Basophils % Nucleated RBC % Retic Count Haptoglobin PT with INR INR Sodium Potassium Chloride Carbon Dioxide Anion Gap BUN Creatinine Est GFR (CKD-EPI)AfAm Est GFR (CKD-EPI)NonAf POC Glucometer [phone] Random Glucose Calcium Phosphorus Magnesium Iron TIBC Iron Saturation Unsaturated IBC Transferrin Ferritin Total Bilirubin AST ALT Alkaline Phosphatase LD Total B-Natriuretic Peptide Total Protein Albumin TSH Urine Color Urine Appearance Urine pH Ur Specific Lucas Urine Protein Urine Glucose (UA) Urine Ketones Urine Blood Urine Nitrite Urine Bilirubin Urine Urobilinogen Ur Leukocyte Esterase Urine WBC (Auto) Urine RBC (Auto) Urine Casts (Auto) U Epithel Cells (Auto) Urine Bacteria (Auto) U Random Total Protein Urine Creatinine Protein/Creatinin Ratio Stool Occult Blood Double Strand DNA Ab Blood Type Antibody Screen Crossmatch 10/11/18 10/11/18 10/11/18 07:18 12:09 17:07 WBC RBC Hgb Hct MCV MCH MCHC RDW Plt Count MPV Absolute Neuts (auto) Neutrophils % Lymphocytes % Monocytes % Eosinophils % Basophils % Nucleated RBC % Retic Count Haptoglobin PT with INR INR Sodium Potassium Chloride Carbon Dioxide Anion Gap BUN Creatinine Est GFR (CKD-EPI)AfAm Est GFR (CKD-EPI)NonAf POC Glucometer 227 173 Random Glucose Calcium Phosphorus Magnesium Iron 41 TIBC 263 Iron Saturation 16 Unsaturated IBC 222 Transferrin Ferritin Total Bilirubin AST ALT Alkaline Phosphatase LD Total B-Natriuretic Peptide Total Protein Albumin TSH Urine Color Urine Appearance Urine pH Ur Specific Lucas Urine Protein Urine Glucose (UA) Urine Ketones Urine Blood Urine Nitrite Urine Bilirubin Urine Urobilinogen Ur Leukocyte Esterase Urine WBC (Auto) Urine RBC (Auto) Urine Casts (Auto) U Epithel Cells (Auto) Urine Bacteria (Auto) U Random Total Protein Urine Creatinine Protein/Creatinin Ratio Stool Occult Blood Double Strand DNA Ab <1 Blood Type Antibody Screen Crossmatch 10/11/18 10/12/18 10/12/18 21:40 05:51 06:39 WBC 7.0 RBC 3.43 L Hgb 9.5 L Hct 28.6 L MCV 83.3 MCH 27.6 MCHC 33.1 RDW 16.9 H Plt Count 202 MPV 10.7 Absolute Neuts (auto) Neutrophils % Lymphocytes % Monocytes % Eosinophils % Basophils % Nucleated RBC % Retic Count Haptoglobin PT with INR INR Sodium Potassium Chloride Carbon Dioxide Anion Gap BUN Creatinine Est GFR (CKD-EPI)AfAm Est GFR (CKD-EPI)NonAf POC Glucometer 101 157 Random Glucose Calcium Phosphorus Magnesium Iron TIBC Iron Saturation Unsaturated IBC Transferrin Ferritin Total Bilirubin AST ALT Alkaline Phosphatase LD Total B-Natriuretic Peptide Total Protein Albumin TSH Urine Color Urine Appearance Urine pH Ur Specific Lucas Urine Protein Urine Glucose (UA) Urine Ketones Urine Blood Urine Nitrite Urine Bilirubin Urine Urobilinogen Ur Leukocyte Esterase Urine WBC (Auto) Urine RBC (Auto) Urine Casts (Auto) U Epithel Cells (Auto) Urine Bacteria (Auto) U Random Total Protein Urine Creatinine Protein/Creatinin Ratio Stool Occult Blood Double Strand DNA Ab Blood Type Antibody Screen Crossmatch 10/12/18 10/12/18 10/12/18 06:39 11:18 11:30 WBC RBC Hgb Hct MCV MCH MCHC RDW Plt Count MPV Absolute Neuts (auto) Neutrophils % Lymphocytes % Monocytes % Eosinophils % Basophils % Nucleated RBC % Retic Count Haptoglobin PT with INR INR Sodium 137 Potassium 4.7 Chloride 102 Carbon Dioxide 30 Anion Gap 6 L BUN 38.5 H Creatinine 1.2 Est GFR (CKD-EPI)AfAm 53.40 Est GFR (CKD-EPI)NonAf 46.07 POC Glucometer 170 Random Glucose 178 H Calcium 8.7 Phosphorus Magnesium Iron TIBC Iron Saturation Unsaturated IBC Transferrin Ferritin Total Bilirubin 0.5 AST 8 L ALT 16 Alkaline Phosphatase 78 LD Total B-Natriuretic Peptide Total Protein 6.4 Albumin 3.0 L TSH Urine Color Urine Appearance Urine pH Ur Specific Lucas Urine Protein Urine Glucose (UA) Urine Ketones Urine Blood Urine Nitrite Urine Bilirubin Urine Urobilinogen Ur Leukocyte Esterase Urine WBC (Auto) Urine RBC (Auto) Urine Casts (Auto) U Epithel Cells (Auto) Urine Bacteria (Auto) U Random Total Protein 49.4 H Urine Creatinine 28.0 Protein/Creatinin Ratio 1.760 Stool Occult Blood Double Strand DNA Ab Blood Type Antibody Screen Crossmatch 10/12/18 11:30 WBC RBC Hgb Hct MCV MCH MCHC RDW Plt Count MPV Absolute Neuts (auto) Neutrophils % Lymphocytes % Monocytes % Eosinophils % Basophils % Nucleated RBC % Retic Count Haptoglobin PT with INR INR Sodium Potassium Chloride Carbon Dioxide Anion Gap BUN Creatinine Est GFR (CKD-EPI)AfAm Est GFR (CKD-EPI)NonAf POC Glucometer Random Glucose Calcium Phosphorus Magnesium Iron TIBC Iron Saturation Unsaturated IBC Transferrin Ferritin Total Bilirubin AST ALT Alkaline Phosphatase LD Total B-Natriuretic Peptide Total Protein Albumin TSH Urine Color Yellow Urine Appearance Clear Urine pH 6.5 Ur Specific Lucas 1.009 L Urine Protein 2+ H Urine Glucose (UA) Negative Urine Ketones Negative Urine Blood Trace Urine Nitrite Negative Urine Bilirubin Negative Urine Urobilinogen 0.2 Ur Leukocyte Esterase 2+ H Urine WBC (Auto) 69 Urine RBC (Auto) 1 Urine Casts (Auto) 0 U Epithel Cells (Auto) 2.7 Urine Bacteria (Auto) 154.1 U Random Total Protein Urine Creatinine Protein/Creatinin Ratio Stool Occult Blood Double Strand DNA Ab Blood Type Antibody Screen Crossmatch Active Medications Generic Name Dose Route Start Last Admin Trade Name Eddi PRN Reason Stop Dose Admin Albuterol/Ipratropium 1 amp 10/11/18 10:50 Duoneb - NEB Q6H PRN SHORTNESS OF BREATH Aspirin 81 mg 10/10/18 10:00 10/12/18 09:35 Ecotrin - PO 81 mg DAILY ALEE Administration Atorvastatin Calcium 80 mg 10/08/18 22:00 10/11/18 21:49 Lipitor - PO 80 mg HS ALEE Administration Colloidal Oatmeal 1 applic 10/10/18 10:40 10/11/18 09:00 Aveeno Soap - TP 1 applic DAILY PRN Administration HYGEINE Ferrous Sulfate 325 mg 10/09/18 10:00 10/12/18 09:35 Feosol - PO 325 mg DAILY ALEE Administration Furosemide 40 mg 10/09/18 10:00 10/12/18 09:35 Lasix - PO 40 mg DAILY ALEE Administration Insulin Aspart 45 units 10/10/18 16:30 10/12/18 06:26 Novolog Mix 70/30 Vial SQ 30 units BIDAC ALEE Administration Insulin Aspart 1 vial 10/10/18 21:53 10/12/18 11:38 Novolog Vial Sliding Scale - SQ 12 units TIDAC ALEE Administration Protocol Metoprolol Succinate 50 mg 10/09/18 10:00 10/12/18 09:46 Toprol Xl - PO Not Given DAILY ALEE Nystatin/Triamcinolone Acetonide 2 applic 10/10/18 22:00 10/12/18 09:35 Mycolog Ii Cream - TP 2 applic BID ALEE Administration Pantoprazole Sodium 40 mg 10/09/18 10:00 10/12/18 09:46 Protonix - PO Not Given DAILY ALEE Ranitidine HCl 150 mg 10/09/18 10:00 10/12/18 09:46 Zantac - PO Not Given DAILY ALEE Condition: Stable - Instructions Diet, Activity, Other Instructions: Follow up with pmd in 1 week Follow up with [facility] Dr Sahu to monitor kidney function Follow up with [facility] Dr Avitia for further work up of chronic anemia Follow up with GI Dr Alvardao for workup of anemia and to schedule appointment for video capsule continue with medication as prescribed return to ER if develop severe weakness, respiratory distress, chest pain, palpitations Referrals: Thai Alvarado MD [Staff Physician] - Jaron Avitia MD [Staff Physician] - Lambert Sahu MD [Staff Physician] - Disposition: HOME - Home Medications Comprehensive Discharge Medication List: Ambulatory Orders Atorvastatin Ca [Lipitor] 80 mg PO HS 08/09/18 Ferrous Sulfate 325 mg PO DAILY 08/09/18 Linaclotide [Linzess] 145 mcg PO DAILY 08/09/18 Furosemide [Lasix -] 40 mg PO DAILY #30 tablet MDD 1 08/10/18 Pantoprazole Sodium [Protonix -] 40 mg PO DAILY #30 tablet.ec MDD 1 08/10/18 Aspirin Coated [Ecotrin -] 81 mg PO DAILY tablet.ec 08/12/18 Insulin Lispro Protamin/Lispro [Humalog Mix 50-50 Kwikpen] 25 units SQ BID 10/08 Losartan Potassium 1 tab PO DAILY 10/08/18 Metoprolol Succinate 1 tab PO DAILY 10/08/18 Ranitidine [Zantac -] 1 tab PO DAILY 10/08/18 Aspirin Coated [Ecotrin -] 81 mg PO DAILY tablet.ec 10/12/18 Colloidal Oatmeal [Aveeno Soap -] 1 applic TP DAILY PRN #1 bar 10/12/18 Hydrocortisone 2.5% Topical Cr [Anusol-Hc -] 1 applic RC BID #1 tube 10/12/18 Nystatin/Triamcinolone Top Cr [Mycolog II -] 2 applic TP BID #1 tube 10/12/18
--- NOTE | 2018-10-12 14:53 | PN ---
Progress Note, Physician History of Present Illness: pulmonary alert,no distress,-cp,-sob,sleep screen AHI 44.5 - Current Medication List Current Medications: Active Medications Albuterol/Ipratropium (Duoneb -) 1 amp NEB Q6H PRN PRN Reason: SHORTNESS OF BREATH Aspirin (Ecotrin -) 81 mg PO DAILY [facility] Last Admin: 10/12/18 09:35 Dose: 81 mg Atorvastatin Calcium (Lipitor -) 80 mg PO HS [facility] Last Admin: 10/11/18 21:49 Dose: 80 mg Colloidal Oatmeal (Aveeno Soap -) 1 applic TP DAILY PRN PRN Reason: HYGEINE Last Admin: 10/11/18 09:00 Dose: 1 applic Ferrous Sulfate (Feosol -) 325 mg PO DAILY [facility] Last Admin: 10/12/18 09:35 Dose: 325 mg Furosemide (Lasix -) 40 mg PO DAILY [facility] Last Admin: 10/12/18 09:35 Dose: 40 mg Insulin Aspart (Novolog Mix 70/30 Vial) 45 units SQ BIDAC [facility] Last Admin: 10/12/18 06:26 Dose: 30 units Insulin Aspart (Novolog Vial Sliding Scale -) 1 vial SQ TIDAC [facility]; Protocol Last Admin: 10/12/18 11:38 Dose: 12 units Metoprolol Succinate (Toprol Xl -) 50 mg PO DAILY [facility] Last Admin: 10/12/18 09:46 Dose: Not Given Nystatin/Triamcinolone Acetonide (Mycolog Ii Cream -) 2 applic TP BID [facility] Last Admin: 10/12/18 09:35 Dose: 2 applic Pantoprazole Sodium (Protonix -) 40 mg PO DAILY [facility] Last Admin: 10/12/18 09:46 Dose: Not Given Ranitidine HCl (Zantac -) 150 mg PO DAILY [facility] Last Admin: 10/12/18 09:46 Dose: Not Given - Objective Vital Signs: Vital Signs Temperature 98.0 F 10/12/18 07:40 Pulse Rate 78 10/12/18 07:40 Respiratory Rate 16 10/12/18 07:40 Blood Pressure 144/70 10/12/18 07:40 O2 Sat by Pulse Oximetry (%) 100 10/12/18 09:00 Constitutional: Yes: Well Nourished, Calm, Obese Eyes: Yes: WNL HENT: Yes: WNL Neck: Yes: WNL Cardiovascular: Yes: Regular Rate and Rhythm, S1, S2 Respiratory: Yes: CTA Bilaterally Gastrointestinal: Yes: Normal Bowel Sounds, Soft Extremities: Yes: WNL Edema: No Labs: CBC, BMP 10/12/18 06:39 10/12/18 06:39 INR, PTT INR 1.03 (0.83-1.09) 10/08/18 11:39 Problem List - Problems (1) CKD (chronic kidney disease) Code(s): N18.9 - CHRONIC KIDNEY DISEASE, UNSPECIFIED (2) Proteinuria Code(s): R80.9 - PROTEINURIA, UNSPECIFIED (3) Symptomatic anemia Code(s): D64.9 - ANEMIA, UNSPECIFIED (4) Anemia Code(s): D64.9 - ANEMIA, UNSPECIFIED Qualifiers: Anemia type: unspecified type Qualified Code(s): D64.9 - Anemia, unspecified (5) Asthma Code(s): J45.909 - UNSPECIFIED ASTHMA, UNCOMPLICATED (6) CAD (coronary artery disease) Code(s): I25.10 - ATHSCL HEART DISEASE OF [place] CORONARY ARTERY W/O ANG PCTRS (7) DM2 (diabetes mellitus, type 2) Code(s): E11.9 - TYPE 2 DIABETES MELLITUS WITHOUT COMPLICATIONS (8) Shortness of breath Code(s): R06.02 - SHORTNESS OF BREATH (9) Sleep apnea Code(s): G47.30 - SLEEP APNEA, UNSPECIFIED Assessment/Plan IMP DYSPNEA/WEAKNESS SECONDARY TO ANEMIA CLINICALLY IMPROVED SYMPTOMATIC ANEMIA IMPROVED CHF CHRONIC KIDNEY INJURY [place] ASTHMA HTN HLD PLAN O2 NEEDED LASIX INHALED BRONCHODILATORS OUTPATIENT SLEEP STUDIES DR MANN Problem List - Problems (1) CKD (chronic kidney disease) Code(s): N18.9 - CHRONIC KIDNEY DISEASE, UNSPECIFIED (2) Proteinuria Code(s): R80.9 - PROTEINURIA, UNSPECIFIED (3) Symptomatic anemia Code(s): D64.9 - ANEMIA, UNSPECIFIED (4) Anemia Code(s): D64.9 - ANEMIA, UNSPECIFIED Qualifiers: Anemia type: unspecified type Qualified Code(s): D64.9 - Anemia, unspecified (5) Asthma Code(s): J45.909 - UNSPECIFIED ASTHMA, UNCOMPLICATED (6) CAD (coronary artery disease) Code(s): I25.10 - ATHSCL HEART DISEASE OF [place] CORONARY ARTERY W/O ANG PCTRS (7) DM2 (diabetes mellitus, type 2) Code(s): E11.9 - TYPE 2 DIABETES MELLITUS WITHOUT COMPLICATIONS (8) Shortness of breath Code(s): R06.02 - SHORTNESS OF BREATH (9) Sleep apnea Code(s): G47.30 - SLEEP APNEA, UNSPECIFIED
--- NOTE | 2018-10-12 16:03 | PN ---
Progress Note, Physician History of Present Illness: Pt seen and examined at bedside. She is awake and alert. She has no complaints. - Current Medication List Current Medications: Active Medications Albuterol/Ipratropium (Duoneb -) 1 amp NEB Q6H PRN PRN Reason: SHORTNESS OF BREATH Aspirin (Ecotrin -) 81 mg PO DAILY [facility] Last Admin: 10/12/18 09:35 Dose: 81 mg Atorvastatin Calcium (Lipitor -) 80 mg PO HS [facility] Last Admin: 10/11/18 21:49 Dose: 80 mg Colloidal Oatmeal (Aveeno Soap -) 1 applic TP DAILY PRN PRN Reason: HYGEINE Last Admin: 10/11/18 09:00 Dose: 1 applic Ferrous Sulfate (Feosol -) 325 mg PO DAILY [facility] Last Admin: 10/12/18 09:35 Dose: 325 mg Furosemide (Lasix -) 40 mg PO DAILY [facility] Last Admin: 10/12/18 09:35 Dose: 40 mg Insulin Aspart (Novolog Mix 70/30 Vial) 45 units SQ BIDAC [facility] Last Admin: 10/12/18 06:26 Dose: 30 units Insulin Aspart (Novolog Vial Sliding Scale -) 1 vial SQ TIDAC [facility]; Protocol Last Admin: 10/12/18 11:38 Dose: 12 units Metoprolol Succinate (Toprol Xl -) 50 mg PO DAILY [facility] Last Admin: 10/12/18 09:46 Dose: Not Given Nystatin/Triamcinolone Acetonide (Mycolog Ii Cream -) 2 applic TP BID [facility] Last Admin: 10/12/18 09:35 Dose: 2 applic Pantoprazole Sodium (Protonix -) 40 mg PO DAILY [facility] Last Admin: 10/12/18 09:46 Dose: Not Given Ranitidine HCl (Zantac -) 150 mg PO DAILY [facility] Last Admin: 10/12/18 09:46 Dose: Not Given - Objective Vital Signs: Vital Signs Temperature 98.0 F 10/12/18 07:40 Pulse Rate 78 10/12/18 07:40 Respiratory Rate 16 10/12/18 07:40 Blood Pressure 144/70 10/12/18 07:40 O2 Sat by Pulse Oximetry (%) 100 10/12/18 09:00 Constitutional: Yes: Calm Eyes: Yes: Conjunctiva Clear HENT: Yes: Atraumatic Neck: Yes: Supple Cardiovascular: Yes: S1, S2 Respiratory: Yes: CTA Bilaterally Gastrointestinal: Yes: Soft, Abdomen, Obese Genitourinary: Yes: WNL Musculoskeletal: Yes: WNL Extremities: Yes: WNL Edema: No Neurological: Yes: Oriented Psychiatric: Yes: Oriented Labs: CBC, BMP 10/12/18 06:39 10/12/18 06:39 INR, PTT INR 1.03 (0.83-1.09) 10/08/18 11:39 Problem List - Problems (1) CKD (chronic kidney disease) Code(s): N18.9 - CHRONIC KIDNEY DISEASE, UNSPECIFIED (2) Proteinuria Code(s): R80.9 - PROTEINURIA, UNSPECIFIED (3) Symptomatic anemia Code(s): D64.9 - ANEMIA, UNSPECIFIED (4) Asthma Code(s): J45.909 - UNSPECIFIED ASTHMA, UNCOMPLICATED (5) CAD (coronary artery disease) Code(s): I25.10 - ATHSCL HEART DISEASE OF [place] CORONARY ARTERY W/O ANG PCTRS (6) COPD (chronic obstructive pulmonary disease) Code(s): J44.9 - CHRONIC OBSTRUCTIVE PULMONARY DISEASE, UNSPECIFIED (7) DM2 (diabetes mellitus, type 2) Code(s): E11.9 - TYPE 2 DIABETES MELLITUS WITHOUT COMPLICATIONS Assessment/Plan Current Medications Generic Name Dose Route Start Last Admin Trade Name Freq PRN Reason Stop Dose Admin Albuterol/Ipratropium 1 amp 10/11/18 10:50 Duoneb - NEB Q6H PRN SHORTNESS OF BREATH Aspirin 81 mg 10/10/18 10:00 10/12/18 09:35 Ecotrin - PO 81 mg DAILY [facility] Administration Atorvastatin Calcium 80 mg 10/08/18 22:00 10/11/18 21:49 Lipitor - PO 80 mg HS [facility] Administration Colloidal Oatmeal 1 applic 10/10/18 10:40 10/11/18 09:00 Aveeno Soap - TP 1 applic DAILY PRN Administration HYGEINE Ferrous Sulfate 325 mg 10/09/18 10:00 10/12/18 09:35 Feosol - PO 325 mg DAILY [facility] Administration Furosemide 40 mg 10/09/18 10:00 10/12/18 09:35 Lasix - PO 40 mg DAILY [facility] Administration Insulin Aspart 45 units 10/10/18 16:30 10/12/18 06:26 Novolog Mix 70/30 Vial SQ 30 units BIDAC [facility] Administration Insulin Aspart 1 vial 10/10/18 21:53 10/12/18 11:38 Novolog Vial Sliding Scale - SQ 12 units TIDAC [facility] Administration Protocol Metoprolol Succinate 50 mg 10/09/18 10:00 10/12/18 09:46 Toprol Xl - PO Not Given DAILY [facility] Nystatin/Triamcinolone Acetonide 2 applic 10/10/18 22:00 10/12/18 09:35 Mycolog Ii Cream - TP 2 applic BID [facility] Administration Pantoprazole Sodium 40 mg 10/09/18 10:00 10/12/18 09:46 Protonix - PO Not Given DAILY [facility] Ranitidine HCl 150 mg 10/09/18 10:00 10/12/18 09:46 Zantac - PO Not Given DAILY [facility] Laboratory Tests 10/08/18 10/11/18 10/11/18 11:39 07:18 07:18 Retic Count 2.16 H D MALLIKA M-Magnus Pending MALLORY Screen c-ANCA Proteinase 3 (PR3) p-ANCA Atypical p-ANCA Myeloperoxidase Ab Double Strand DNA Ab Glomerular Base Memb Ab Free [place] LC, Quant Pending Free Lambda LC, Quant Pending Free [place]/Lambda Ratio Pending Hepatitis A Ab Total Hep Bs Antigen Hep Bs Antibody Hep B Core Total Ab Hep B Core IgM Ab Hepatitis Be Antibody Hepatitis Be Antigen HCV Quantitation 10/11/18 07:18 Retic Count MALLIKA M-Magnus MALLORY Screen Pending c-ANCA Pending Proteinase 3 (PR3) Pending p-ANCA Pending Atypical p-ANCA Pending Myeloperoxidase Ab Pending Double Strand DNA Ab <1 Glomerular Base Memb Ab Pending Free [place] LC, Quant Free Lambda LC, Quant Free [place]/Lambda Ratio Hepatitis A Ab Total Pending Hep Bs Antigen Pending Hep Bs Antibody Pending Hep B Core Total Ab Pending Hep B Core IgM Ab Pending Hepatitis Be Antibody Pending Hepatitis Be Antigen Pending HCV Quantitation Pending Impression 1. CKD 2. proteinuria 3. elevated kappa chains with abnormal ratio 4. symptomatic anemia 5. DM 6. obesity 7. cad 8. chf 9. hx of positive mallory Plan - serologies will need to be followed up - pt will come to office - she will follow with oncology and GI - follow light chains - discussed diet - recommend weight loss as well
--- NOTE | 2018-10-12 16:40 | PN ---
Progress Note (short form) - Note Progress Note: For out patient follow up of proteins , flow, and chronic anemia.
[2018-10-12 18:08] LABS: FREE KAPPA,SERUM 61.2 mg/L (3.3-19.4)
[2018-10-14 08:06] LABS: HEP A AB, IGM Negative (Negative); HEP B CORE AB, TOT Negative (Negative)
[2018-10-15 10:07] LABS: ANTIGLOMERULAR BASEMENT MEN.AB 3 units (0-20)
[2018-10-16 18:07] LABS: ATYPICAL pANCA <1:20 titer (Neg:<1:20); C-ANCA <1:20 titer (Neg:<1:20); P-ANCA <1:20 titer (Neg:<1:20)
== END 2018-10-12 18:26 | disposition home health service (06) | DRG 811 ==
LOC: JER 09:44 → JERBED 15:22 → J6S 21:11
PROVIDERS: ADMIT Family Medicine; ATTEND Family Medicine
PROC: 30233N1 Transfusion of Nonautologous Red Blood Cells into Peripheral Vein, Percutaneous Approach (ICD-10-PCS; principal; 2018-10-08)
DX: D64.9 Anemia, unspecified (principal); I50.31 Acute diastolic (congestive) heart failure; Z68.42 Body mass index [BMI] 45.0-49.9, adult; N17.9 Acute kidney failure, unspecified; I13.0 Hypertensive heart and chronic kidney disease with heart failure and stage 1 through stage 4 chronic kidney disease, or unspecified chronic kidney disease; I25.10 Atherosclerotic heart disease of native coronary artery without angina pectoris; E78.5 Hyperlipidemia, unspecified; I25.2 Old myocardial infarction; K59.00 Constipation, unspecified; J45.909 Unspecified asthma, uncomplicated; K21.9 Gastro-esophageal reflux disease without esophagitis; G47.33 Obstructive sleep apnea (adult) (pediatric); E66.01 Morbid (severe) obesity due to excess calories; E11.610 Type 2 diabetes mellitus with diabetic neuropathic arthropathy; E11.319 Type 2 diabetes mellitus with unspecified diabetic retinopathy without macular edema; R80.9 Proteinuria, unspecified; B35.1 Tinea unguium; E11.65 Type 2 diabetes mellitus with hyperglycemia; E11.22 Type 2 diabetes mellitus with diabetic chronic kidney disease; N18.9 Chronic kidney disease, unspecified; Z95.5 Presence of coronary angioplasty implant and graft; Z88.0 Allergy status to penicillin
CPT/HCPCS: 36415; 36430; 36511; 71046-TC-FY; 80048; 80053; 81003; 82272; 82570; 82728; 82962; 83010; 83516; 83520; 83540; 83550; 83615; 83735; 83880; 83883; 84100; 84132; 84155; 84156; 84165; 84436; 84443; 84466; 85025; 85027; 85044; 85610; 86038; 86225; 86256; 86704; 86706; 86707; 86708; 86709; 86850; 86900; 86901; 86922; 87340; 87522; 93005; 93010; 97116-GP; 97162-GP; 99283-25; P9038; P9058

== ENCOUNTER 2018-11-05 11:20 | Inpatient (IN) | payer BC, OTHER ==
--- NOTE | 2018-11-05 11:42 | PDOC ---
History of Present Illness - General Chief Complaint: SIRS, Suspected/Possible Stated Complaint: ABD. PAIN/ SENT BY PCP Time Seen by Provider: 11/05/18 11:39 Past History - Past Medical History Allergies/Adverse Reactions: Allergies Allergy/AdvReac Type Severity Reaction Status Date / Time Penicillins Allergy Difficulty Verified 11/05/18 11:31 Breathing Home Medications: Ambulatory Orders Atorvastatin Ca [Lipitor] 80 mg PO HS 08/09/18 Ferrous Sulfate 325 mg PO DAILY 08/09/18 Linaclotide [Linzess] 145 mcg PO DAILY 08/09/18 Furosemide [Lasix -] 40 mg PO DAILY #30 tablet MDD 1 08/10/18 Pantoprazole Sodium [Protonix -] 40 mg PO DAILY #30 tablet.ec MDD 1 08/10/18 Aspirin Coated [Ecotrin -] 81 mg PO DAILY tablet.ec 08/12/18 Insulin Lispro Protamin/Lispro [Humalog Mix 50-50 Kwikpen] 25 units SQ BID 10/08 Losartan Potassium 1 tab PO DAILY 10/08/18 Metoprolol Succinate 1 tab PO DAILY 10/08/18 Ranitidine [Zantac -] 1 tab PO DAILY 10/08/18 Nystatin/Triamcinolone Top Cr [Mycolog II -] 2 applic TP BID #1 tube 10/12/18 Anemia: Yes Asthma: Yes Cardiac Disorders: Yes (TX, CAD sp Stentx2,) COPD: No CHF: Yes Diabetes: Yes GI Disorders: Yes (constipation) HTN: Yes Hypercholesterolemia: Yes - Surgical History Abdominal Surgery: Yes Cardiac Surgery: Yes (cath with stent x2) Orthopedic Surgery: Yes (knee surgery) - Immunization History TDAP Vaccination: Yes Immunization Up to Date: Yes - Suicide/Smoking/Psychosocial Hx Smoking Status: No Smoking History: Never smoked Have you smoked in the past 12 months: No Number of Cigarettes Smoked Daily: 0 Hx Alcohol Use: No Drug/Substance Use Hx: No Substance Use Type: None Hx Substance Use Treatment: No *Physical Exam - Vital Signs Last Vital Signs Temp Pulse Resp BP Pulse Ox 101.6 F H 90 22 H 160/48 L 97 11/05/18 11:39 11/05/18 11:39 11/05/18 11:39 11/05/18 11:39 11/05/18 11:39 ED Treatment Course - LABORATORY CBC & Chemistry Diagram: 11/05/18 12:24 11/05/18 12:24 Medical Decision Making - Medical Decision Making 11/05/18 11:41 68 yo F history CHF, DM, CAD, HTN, HL, anemia, asthma, anemia who presents with 3 days of intermittent dizziness, nausea, dysuria and 1 day of chills. The patient She denies any chest pain, shortness of breath, or worsening leg edema. Denies any cough, congestion. Denies abdomianl pain. ROS GENERAL/CONSTITUTIONAL: No weakness. HEAD, EYES, EARS, NOSE AND THROAT: No change in vision. No ear pain or discharge. No sore throat. CARDIOVASCULAR: No chest pain or shortness of breath RESPIRATORY: No cough, wheezing, or hemoptysis. GASTROINTESTINAL: No vomiting, diarrhea or constipation. GENITOURINARY: see hpi MUSCULOSKELETAL: No joint or muscle swelling or pain. No neck or back pain. SKIN: No rash NEUROLOGIC: No headache, vertigo, loss of consciousness, or change in strength/ sensation. PE GENERAL: Awake, alert, and fully oriented, in no acute distress HEAD: No signs of trauma, normocephalic, atraumatic EYES: EOMI, sclera anicteric, conjunctiva clear ENT: oropharynx clear without exudates. Moist mucosa NECK: Normal ROM, supple LUNGS: No distress, speaks full sentences, clear to auscultation bilaterally HEART: Regular rate and rhythm, normal S1 and S2, no murmurs, rubs or gallops, peripheral pulses normal and equal bilaterally. ABDOMEN: Soft, nontender, normoactive bowel sounds. No guarding, no rebound. No masses BACK: No CVA tenderness EXTREMITIES : Normal inspection, Normal range of motion, no edema. No clubbing or cyanosis. NEUROLOGICAL: Cranial nerves II through XII grossly intact. Normal speech, baseline gait, no focal sensorimotor deficits SKIN: Warm, Dry, normal turgor, no rashes or lesions noted MDM 68 yo F history CHF, DM, CAD, HTN, HL, anemia, asthma, anemia who presents with 3 days of intermittent dizziness, nausea, dysuria and 1 day of chills. The patient She denies any chest pain, shortness of breath, or worsening leg edema. Denies any cough, congestion. Denies abdomianl pain. DDX including but not limited to: uti vs pyelo r./o pulm infecitous source W/U: - cbc, cmp, trop, coags, ekg, cxr TX: - tylenol, ivf ED Course: Ua: with florid UTI levaquin dosed. labs wnl - hb 8.2 - patient lives around 9 patient with dizziness and nausea, possibly 2/2 anemia vs infectious Will admit for iv antibiotics and serial H/H Violet Santiago, PGY2 Emergency Medicine *DC/Admit/Observation/Transfer Diagnosis at time of Disposition: Sepsis - Discharge Dispostion Condition at time of disposition: Stable Decision to Admit order: Yes - Referrals Referrals: Russell Philip MD [Primary Care Provider] - - Patient Instructions - Post Discharge Activity
[2018-11-05] MEDS ORDERED: ACETAMINOPHEN 1000 MG/100 ML VIAL (NON FORMULARY) IVPB ONE (11:43)
--- NOTE | 2018-11-05 12:22 | PDOC ---
Documentation entered by Rosalina Martinez SCRIBE, acting as scribe for Pierce Gray MD. Pierce Gray MD: This documentation has been prepared by the Michelle peralta Brenda, SCRIBE, under my direction and personally reviewed by me in its entirety. I confirm that the documentation accurately reflects all work, treatment, procedures, and medical decision making performed by me. Attending Attestation - Resident Resident Name: Violet Santiago - ED Attending Attestation I have performed the following: I have examined & evaluated the patient, The case was reviewed & discussed with the resident, I agree w/resident's findings & plan, Exceptions are as noted - HPI HPI: 11/05/18 13:54 The patient is a 68 year old female, with a significant PMH of CHF, DM, CAD, HTN , HL, anemia and asthma, who presents to the emergency department with 3 days of dizziness with dysuria and nausea. The patient also endorses 1 day of fever and chills. Son on the bedsides states that the patient has also been experiencing some chest pain. The patient denies chest pain, shortness of breath, headache and dizziness. Denies vomiting, diarrhea and constipation. Denies frequency, urgency and hematuria. Allergies: Penicillins Past surgical history: cath with stent x2, orthopedic knee surgery, unknown abdominal surgery. Social history: Denies any tobacco use or etoh use or illicit drug use. - Physicial Exam PE: 11/05/18 13:56 Vitals: Triage vital signs reviewed General Appearance: No acute distress, well nourished, well developed Head: Atraumatic Neck: Supple; No nuchal rigidity Chest Wall: Nontender Cardiac: Regular rate and rhythm, no murmurs, no rubs, no gallops Lungs: Clear to auscultation bilateral, good air movement bilaterally Abdomen: (+) Mild superpubic discomfort. Soft, nondistended, normal bowel sounds. Extremities: Full range of motion to all extremities, no cyanosis, clubbing, or edema Skin: Warm and dry, no rashes or lesions, no rash, no petechiae Neuro: AOX3; Cranial Nerves 2-12 grossly intact, Strength intact to all extremities, Sensation intact to all extremities. Psych: Normal mood, normal affect - Medical Decision Making 11/05/18 16:32 68 years old with CHF diabetes CAD hypertension hyperlipidemia presents to the ED with 3 days of dizziness dysuria fever chills Lab workup notable for no elevated white blood cell count but marcated urinalysis Status post IV antibiotics and IV fluids patient still remains lightheaded given symptomatic urosepsis given fever will admit overnight for IV antibiotics and further management.
[2018-11-05 12:46] LABS: BASO % 0.4 % (0-2.0); EOS % 0.4 % (0-4.5); HEMATOCRIT 25.1 % (32.4-45.2); HEMOGLOBIN 8.2 GM/dL (10.7-15.3); MCH 27.9 pg (25.7-33.7); MCHC 32.7 g/dl (32.0-36.0); MEAN CELL VOLUME 85.2 fl (80-96); MEAN PLT VOLUME 10.6 fl (7.5-11.1); MONO % 6.5 % (3.8-10.2); NEUT % 88.7 % (42.8-82.8); PLATELET COUNT 200 K/MM3 (134-434); RBC 2.95 M/mm3 (3.60-5.2); RDW 17.1 % (11.6-15.6); WHITE BLOOD COUNT 9.4 K/mm3 (4.0-10.0)
[2018-11-05 13:02] LABS: INR 1.12 (0.83-1.09); PROTHROMBIN TIME (PATIENT) 13.2 SEC (9.7-13.0)
[2018-11-05 13:05] LABS: ACTIVATED PTT 27.7 SECONDS (25.2-36.5)
[2018-11-05] MEDS: SODIUM CHLORIDE 250 ML IV SCH (13:15)
[2018-11-05 13:20] LABS: EPI CELLS 1.5 /HPF (0-5/HPF); HYALINE CASTS 11 /lpf (0-8); URINE APPEARANCE TURBID; URINE BACTERIA 8733.5 /hpf (NEGATIVE); URINE BILIRUBIN NEGATIVE (NEGATIVE); URINE COLOR YELLOW; URINE GLUCOSE (UA) 1+ (NEGATIVE); URINE KETONE NEGATIVE (NEGATIVE); URINE LEUK ESTERASE 3+ (NEGATIVE); URINE NITRITE POSITIVE (NEGATIVE); URINE PROTEIN 3+ (NEGATIVE); URINE RBC 16 /hpf (0-4); URINE UROBILINOGEN 0.2 mg/dL (0.2-1.0); URINE WBC 1321 /hpf (0-5)
[2018-11-05 13:21] LABS: ALBUMIN 3.1 g/dl (3.4-5.0); ALK PHOS 76 U/L (45-117); ANION GAP 9 MMOL/L (8-16); BILIRUBIN,TOTAL 0.8 mg/dL (0.2-1); BLOOD UREA NITROGEN 41.5 mg/dL (7-18); CALCIUM 8.7 mg/dL (8.5-10.1); CHLORIDE 101 mmol/L (98-107); CO2 26 mmol/L (21-32); CREATININE 1.3 mg/dL (0.55-1.3); GLUCOSE,RANDOM 239 mg/dL (74-106); POTASSIUM 4.7 mmol/L (3.5-5.1); SGOT/AST 7 U/L (15-37); SGPT/ALT 11 U/L (13-61); SODIUM 137 mmol/L (136-145); TOT PROT 6.7 g/dl (6.4-8.2)
[2018-11-05] MEDS ORDERED: ACETAMINOPHEN INJECTION 100 ML IVPB ONE (13:36)
[2018-11-05 14:14] LABS: N-TERMINAL BNP 2305.9 pg/ml (5-125)
--- NOTE | 2018-11-05 16:22 | HP ---
Admitting History and Physical - Admission Chief Complaint: dizziness, chest pressure on exertion and dysuria with fever History of Present Illness: The patient is a 68 year old female, with a significant PMH of CHF, DM, CAD, HTN , HL, anemia and asthma, who presents to the emergency department with 3 days of dizziness with dysuria and nausea. The patient also endorses 1 day of fever and chills. Son on the bedsides states that the patient has also been experiencing some chest pain. in ER found temp 101 and UA positive - Past Medical History Cardiovascular: Yes: CAD (S/P STENTING), HTN, Hyperlipdemia Pulmonary: Yes: Asthma, Bronchitis, Pneumonia, Sleep Apnea Gastrointestinal: Yes: GERD Renal/: Yes: Renal Inusuff Heme/Onc: Yes: Anemia Musculoskeletal: Yes: Osteoarthritis Endocrine: Yes: Diabetes Mellitus - Smoking History Smoking history: Never smoked Have you smoked in the past 12 months: No Aproximately how many cigarettes per day: 0 - Alcohol/Substance Use Hx Alcohol Use: No History of Substance Use: reports: None - Social History ADL: Family Assistance Occupation: [employer] History of Recent Travel: No Home Medications - Allergies Allergies/Adverse Reactions: Allergies Allergy/AdvReac Type Severity Reaction Status Date / Time Penicillins Allergy Difficulty Verified 11/05/18 11:31 Breathing - Home Medications Home Medications: Ambulatory Orders Atorvastatin Ca [Lipitor] 80 mg PO HS 08/09/18 Ferrous Sulfate 325 mg PO DAILY 08/09/18 Linaclotide [Linzess] 145 mcg PO DAILY 08/09/18 Furosemide [Lasix -] 40 mg PO DAILY #30 tablet MDD 1 08/10/18 Pantoprazole Sodium [Protonix -] 40 mg PO DAILY #30 tablet.ec MDD 1 08/10/18 Aspirin Coated [Ecotrin -] 81 mg PO DAILY tablet.ec 08/12/18 Insulin Lispro Protamin/Lispro [Humalog Mix 50-50 Kwikpen] 25 units SQ BID 10/08 Losartan Potassium 1 tab PO DAILY 10/08/18 Metoprolol Succinate 1 tab PO DAILY 10/08/18 Ranitidine [Zantac -] 1 tab PO DAILY 10/08/18 Nystatin/Triamcinolone Top Cr [Mycolog II -] 2 applic TP BID #1 tube 10/12/18 Family Disease History - Family Disease History Family Disease History: Diabetes: Mother (: DM II complications), Sister (6 , 1 of old age), Other: Father (: CVA), Mother, Brother (3, 2 from "Old age", 1 from Lung Ca), Sister, Son (5, healthy), Daughter (1, healthy) Review of Systems - Review of Systems Cardiovascular: reports: Chest Pain, Shortness of Breath Respiratory: reports: SOB on Exertion Genitourinary: reports: Dysuria Physical Examination Vital Signs: Vital Signs Temperature 100.1 F H 11/05/18 14:19 Pulse Rate 75 11/05/18 14:19 Respiratory Rate 16 11/05/18 14:19 Blood Pressure 116/44 L 11/05/18 14:19 O2 Sat by Pulse Oximetry (%) 94 L 11/05/18 14:19 Constitutional: Yes: Calm, Obese Cardiovascular: Yes: Regular Rate and Rhythm, S1, S2 Respiratory: Yes: CTA Bilaterally Gastrointestinal: Yes: Normal Bowel Sounds, Soft Edema: Yes Neurological: Yes: Alert, Oriented Labs: CBC, BMP 11/05/18 12:24 11/05/18 12:24 Problem List - Problems (1) UTI (urinary tract infection) Assessment/Plan: pcn allergy levaquin ID eval cultures pending Code(s): N39.0 - URINARY TRACT INFECTION, SITE NOT SPECIFIED (2) Type 2 diabetes mellitus with other diabetic arthropathy Assessment/Plan: bgm [id number] insulin Code(s): E11.618 - TYPE 2 DIABETES MELLITUS WITH OTHER DIABETIC ARTHROPATHY (3) Dyspnea on exertion Assessment/Plan: echo cardiology consult troponin lasix Code(s): R06.09 - OTHER FORMS OF DYSPNEA
[2018-11-05] MEDS ORDERED: ACETAMINOPHEN 325 MG TABLET (FP) PO PRN (16:30)
[2018-11-05] MEDS ORDERED: ACETAMINOPHEN 1000 MG/100 ML VIAL (NON FORMULARY) IVPB PRN (19:45)
[2018-11-05] MEDS ORDERED: ONDANSETRON 4 MG/2 ML VIAL IVPUSH ONE (19:46)
[2018-11-05] MEDS ORDERED: LORazepam 2 MG/ML SDV VIAL IVPB ONE (19:49)
[2018-11-05] MEDS ORDERED: ALBUTEROL SO4 2.5/IPRATROPIUM 0.5 INH SOL 3 ML VIAL.NEB. NEB PRN (19:50)
[2018-11-05] MEDS ORDERED: ALBUTEROL SO4 2.5/IPRATROPIUM 0.5 INH SOL 3 ML VIAL.NEB. NEB ONE (19:50)
[2018-11-05] MEDS ORDERED: VANCOMYCIN 1 GM in D5W (PRE-DOCKED) 1,000 MG/250 ML IVPB ONE (19:53)
[2018-11-05 21:38] LABS: BASO % 0.3 % (0-2.0); EOS % 0.3 % (0-4.5); HEMATOCRIT 23.9 % (32.4-45.2); HEMOGLOBIN 7.6 GM/dL (10.7-15.3); MCH 27.2 pg (25.7-33.7); MCHC 31.8 g/dl (32.0-36.0); MEAN CELL VOLUME 85.6 fl (80-96); MEAN PLT VOLUME 11.1 fl (7.5-11.1); MONO % 6.9 % (3.8-10.2); NEUT % 88.5 % (42.8-82.8); PLATELET COUNT 180 K/MM3 (134-434); RBC 2.79 M/mm3 (3.60-5.2); RDW 16.7 % (11.6-15.6); WHITE BLOOD COUNT 12.1 K/mm3 (4.0-10.0)
[2018-11-05] MEDS ORDERED: ATORVASTATIN CA 40 MG TABLET (FP) PO SCH (22:00)
[2018-11-05] MEDS ORDERED: INSULIN SLIDING SCALE (NOVOLOG) 1 VIAL SQ SCH (22:00)
--- NOTE | 2018-11-05 22:07 | HOSP ---
Subjective - Review of Symptoms Events since last encounter: 68 year old female, with a significant PMH of CHF, DM, CAD, HTN, HL, anemia and asthma, who presents to the emergency department with 3 days of dizziness with dysuria and nausea. The patient also endorses 1 day of fever and chills. In ER found temp 101 and UA positive was given 1 dose of IV levaquin RN called for patient noted with Vitals; Temp: 102.4, HR: 125, BP: 161/115, RR: 18 chills, anxious, c/o " too cold, cover me up" upon assessment lungs clear , denies cp noted with mild wheezing b/l STAT labs ordered- cbc,lactic acid, blood cx x2 ordered IV tylenol x1 Ativan 1mg x1, Zofran X1 IV push Vanomycin 1 g IV x1, Nebs tx x1 wbc: 9.4 ---> 12.1 , latic acid normal Hgb: 8.2 --> 7.6 - continue with Levaquin IV - follow up urine and blood culture - ID to follow in AM - follow up occult blood x2 - trend H/H - Continue with nebs prn - Continue with IV tylenol Q prn - continue with lasix 40 mg IV -- BNP was elevated Physical Examination Vital Signs: Vital Signs Temperature 101.4 F H 11/05/18 21:10 Pulse Rate 96 H 11/05/18 21:10 Respiratory Rate 18 11/05/18 21:10 Blood Pressure 128/51 L 11/05/18 21:10 O2 Sat by Pulse Oximetry (%) 95 11/05/18 17:00 Labs: CBC, BMP 11/05/18 21:00 11/05/18 12:24
[2018-11-05] MEDS: HEPARIN NA (PORCINE) 5,000 UNITS/ML 1ML VIAL SQ SCH (22:32)
--- NOTE | 2018-11-06 01:00 | CONSULT ---
Consult Consult Specialty:: endocrine Referred by:: dr.saba schwartz Reason for Consultation:: diabetes mellitus hyperglycemia - History of Present Illness Chief Complaint: fever and chills History of Present Illness: 68 year old female, with a significant PMH of DM t2,CHF, CAD, HTN, HLD, anemia and asthma, who presents to the emergency department with 3 days of dizziness with dysuria and headache,and fever with chills.her sugar levels have been very high despite poor appetite. she denies cough vomiting ,chest pain,or diarhea. - Past Medical History Cardio/Vascular: Yes: CAD (S/P STENTING), HTN, Hyperlipdemia Pulmonary: Yes: Asthma, Bronchitis, Pneumonia, Sleep Apnea Gastrointestinal: Yes: GERD Renal/: Yes: Renal Inusuff Musculoskeletal: Yes: Osteoarthritis Endocrine: Yes: Diabetes Mellitus - Alcohol/Substance Use Hx Alcohol Use: No History of Substance Use: reports: None - Smoking History Smoking history: Never smoked Have you smoked in the past 12 months: No Aproximately how many cigarettes per day: 0 - Social History Usual Living Arrangement: With Spouse ADL: Family Assistance Occupation: [employer] History of Recent Travel: No Home Medications - Allergies Allergies/Adverse Reactions: Allergies Allergy/AdvReac Type Severity Reaction Status Date / Time Penicillins Allergy Difficulty Verified 11/05/18 11:31 Breathing - Home Medications Home Medications: Ambulatory Orders Atorvastatin Ca [Lipitor] 80 mg PO HS 08/09/18 Ferrous Sulfate 325 mg PO DAILY 08/09/18 Linaclotide [Linzess] 145 mcg PO DAILY 08/09/18 Furosemide [Lasix -] 40 mg PO DAILY #30 tablet MDD 1 08/10/18 Pantoprazole Sodium [Protonix -] 40 mg PO DAILY #30 tablet.ec MDD 1 08/10/18 Aspirin Coated [Ecotrin -] 81 mg PO DAILY tablet.ec 08/12/18 Insulin Lispro Protamin/Lispro [Humalog Mix 50-50 Kwikpen] 25 units SQ BID 10/08 Losartan Potassium 1 tab PO DAILY 10/08/18 Metoprolol Succinate 1 tab PO DAILY 10/08/18 Ranitidine [Zantac -] 1 tab PO DAILY 10/08/18 Nystatin/Triamcinolone Top Cr [Mycolog II -] 2 applic TP BID #1 tube 10/12/18 Family Disease History - Family Disease History Family Disease History: Diabetes: Mother (: DM II complications), Sister (6 , 1 of old age), Other: Father (: CVA), Mother, Brother (3, 2 from "Old age", 1 from Lung Ca), Sister, Son (5, healthy), Daughter (1, healthy) Review of Systems - Review of Systems Constitutional: reports: Loss of Appetite, Weakness Eyes: reports: Blurred Vision HENT: reports: No Symptoms Neck: reports: No Symptoms Cardiovascular: reports: Shortness of Breath Respiratory: reports: Exercise Intolerance, SOB on Exertion Gastrointestinal: reports: Bloating, Nausea Genitourinary: reports: No Symptoms Breasts: reports: No Symptoms Reported Musculoskeletal: reports: Muscle Pain, Muscle Cramps, Muscle Weakness Neurological: reports: Numbness, Weakness Endocrine: reports: Unexplained Weight Gain Physical Exam Vital Signs: Vital Signs Temperature 101.4 F H 11/05/18 21:10 Pulse Rate 96 H 11/05/18 21:10 Respiratory Rate 18 11/05/18 21:10 Blood Pressure 128/51 L 11/05/18 21:10 O2 Sat by Pulse Oximetry (%) 95 11/05/18 17:00 Constitutional: Yes: Anxious Eyes: Yes: EOM Intact HENT: Yes: Normocephalic Neck: Yes: Trachea Midline Cardiovascular: Yes: Tachycardia Respiratory: Yes: CTA Bilaterally Gastrointestinal: Yes: Normal Bowel Sounds ...Rectal Exam: Yes: Deferred Renal/: Yes: CVA Tenderness - Left Musculoskeletal: Yes: Muscle Weakness Extremities: Yes: Delayed Capillary Refill Edema: LLE: 1+, RLE: 1+ Neurological: Yes: Alert, Oriented Labs: CBC, BMP 11/05/18 21:00 11/05/18 12:24 Problem List - Problems (1) Diabetes 1.5, managed as type 1 Code(s): E13.9 - OTHER SPECIFIED DIABETES MELLITUS WITHOUT COMPLICATIONS (2) Dyspnea on exertion Code(s): R06.09 - OTHER FORMS OF DYSPNEA (3) Sepsis Code(s): A41.9 - SEPSIS, UNSPECIFIED ORGANISM (4) HORACE (acute kidney injury) Code(s): N17.9 - ACUTE KIDNEY FAILURE, UNSPECIFIED (5) Acute exacerbation of CHF (congestive heart failure) Code(s): I50.9 - HEART FAILURE, UNSPECIFIED Qualifiers: Heart failure type: unspecified Qualified Code(s): I50.9 - Heart failure, unspecified (6) Acute hypoxemic respiratory failure Code(s): J96.01 - ACUTE RESPIRATORY FAILURE WITH HYPOXIA (7) Anemia Code(s): D64.9 - ANEMIA, UNSPECIFIED Qualifiers: Anemia type: unspecified type Qualified Code(s): D64.9 - Anemia, unspecified Assessment/Plan Current Active Problems Diabetes 1.5, managed as type 1 (Acute) Dyspnea on exertion (Acute) Sepsis (Acute) Abnormal Lab Results 11/05/18 11/05/18 11/05/18 12:24 12:24 12:24 WBC RBC 2.95 L Hgb 8.2 L Hct 25.1 L MCHC RDW 17.1 H Absolute Neuts (auto) 8.4 H Neutrophils % 88.7 H D Lymphocytes % 4.0 L D PT with INR 13.20 H INR 1.12 H BUN 41.5 H Random Glucose 239 H AST 7 L ALT 11 L B-Natriuretic Peptide 2305.9 H Albumin 3.1 L Urine Protein Urine Glucose (UA) Urine Blood Urine Nitrite Ur Leukocyte Esterase 11/05/18 11/05/18 12:55 21:00 WBC 12.1 H RBC 2.79 L Hgb 7.6 L Hct 23.9 L MCHC 31.8 L RDW 16.7 H Absolute Neuts (auto) 10.7 H Neutrophils % 88.5 H Lymphocytes % 4.0 L PT with INR INR BUN Random Glucose AST ALT B-Natriuretic Peptide Albumin Urine Protein 3+ H Urine Glucose (UA) 1+ H Urine Blood 2+ H Urine Nitrite Positive H Ur Leukocyte Esterase 3+ H Laboratory Results - last 24 hr 11/05/18 11/05/18 11/05/18 12:24 12:24 12:24 WBC 9.4 RBC 2.95 L Hgb 8.2 L Hct 25.1 L MCV 85.2 MCH 27.9 MCHC 32.7 RDW 17.1 H Plt Count 200 MPV 10.6 Absolute Neuts (auto) 8.4 H Neutrophils % 88.7 H D Lymphocytes % 4.0 L D Monocytes % 6.5 Eosinophils % 0.4 D Basophils % 0.4 Nucleated RBC % 0 PT with INR 13.20 H INR 1.12 H PTT (Actin FS) 27.7 Sodium 137 Potassium 4.7 Chloride 101 Carbon Dioxide 26 Anion Gap 9 BUN 41.5 H Creatinine 1.3 Est GFR (CKD-EPI)AfAm 48.47 Est GFR (CKD-EPI)NonAf 41.82 POC Glucometer Random Glucose 239 H Lactic Acid Calcium 8.7 Total Bilirubin 0.8 AST 7 L ALT 11 L Alkaline Phosphatase 76 Troponin I < 0.02 B-Natriuretic Peptide 2305.9 H Total Protein 6.7 Albumin 3.1 L Urine Color Urine Appearance Urine pH Ur Specific [place] Urine Protein Urine Glucose (UA) Urine Ketones Urine Blood Urine Nitrite Urine Bilirubin Urine Urobilinogen Ur Leukocyte Esterase Urine WBC (Auto) Urine RBC (Auto) Urine Casts (Auto) U Pathogenic Cast Auto U Epithel Cells (Auto) Urine Bacteria (Auto) 11/05/18 11/05/18 11/05/18 12:55 18:01 21:00 WBC 12.1 H RBC 2.79 L Hgb 7.6 L Hct 23.9 L MCV 85.6 MCH 27.2 MCHC 31.8 L RDW 16.7 H Plt Count 180 MPV 11.1 Absolute Neuts (auto) 10.7 H Neutrophils % 88.5 H Lymphocytes % 4.0 L Monocytes % 6.9 Eosinophils % 0.3 Basophils % 0.3 Nucleated RBC % 0 PT with INR INR PTT (Actin FS) Sodium Potassium Chloride Carbon Dioxide Anion Gap BUN Creatinine Est GFR (CKD-EPI)AfAm Est GFR (CKD-EPI)NonAf POC Glucometer 196 Random Glucose Lactic Acid Calcium Total Bilirubin AST ALT Alkaline Phosphatase Troponin I B-Natriuretic Peptide Total Protein Albumin Urine Color Yellow Urine Appearance Turbid Urine pH 6.0 Ur Specific [place] 1.014 Urine Protein 3+ H Urine Glucose (UA) 1+ H Urine Ketones Negative Urine Blood 2+ H Urine Nitrite Positive H Urine Bilirubin Negative Urine Urobilinogen 0.2 Ur Leukocyte Esterase 3+ H Urine WBC (Auto) 1321 Urine RBC (Auto) 16 Urine Casts (Auto) 11 U Pathogenic Cast Auto None seen U Epithel Cells (Auto) 1.5 Urine Bacteria (Auto) 8733.5 11/05/18 11/05/18 21:00 22:32 WBC RBC Hgb Hct MCV MCH MCHC RDW Plt Count MPV Absolute Neuts (auto) Neutrophils % Lymphocytes % Monocytes % Eosinophils % Basophils % Nucleated RBC % PT with INR INR PTT (Actin FS) Sodium Potassium Chloride Carbon Dioxide Anion Gap BUN Creatinine Est GFR (CKD-EPI)AfAm Est GFR (CKD-EPI)NonAf POC Glucometer 316 Random Glucose Lactic Acid 1.5 Calcium Total Bilirubin AST ALT Alkaline Phosphatase Troponin I B-Natriuretic Peptide Total Protein Albumin Urine Color Urine Appearance Urine pH Ur Specific [place] Urine Protein Urine Glucose (UA) Urine Ketones Urine Blood Urine Nitrite Urine Bilirubin Urine Urobilinogen Ur Leukocyte Esterase Urine WBC (Auto) Urine RBC (Auto) Urine Casts (Auto) U Pathogenic Cast Auto U Epithel Cells (Auto) Urine Bacteria (Auto) plan: bgm qid novolog scale novolog 70/30 tid doses iv antibiotics iv fluids transfuse for anemia
[2018-11-06] MEDS: SODIUM CHLORIDE 250 ML IV SCH (06:13)
[2018-11-06] MEDS ORDERED: INSULIN (NOVOLOG MIX 70/30) 100 UNITS/ML MDV SQ SCH ×2 (07:00→16:30)
[2018-11-06] MEDS: INSULIN SLIDING SCALE (NOVOLOG) 1 VIAL SQ SCH ×4 (07:01→21:19)
[2018-11-06] MEDS ORDERED: PT OWN MED DRAWER 7, Y5N ONE (09:17)
[2018-11-06 09:24] LABS: BASO % 0.3 % (0-2.0); EOS % 0.5 % (0-4.5); HEMATOCRIT 24.3 % (32.4-45.2); HEMOGLOBIN 7.9 GM/dL (10.7-15.3); LYMPH % 5.9 % (8-40); MCH 27.8 pg (25.7-33.7); MCHC 32.4 g/dl (32.0-36.0); MEAN CELL VOLUME 85.7 fl (80-96); MEAN PLT VOLUME 10.6 fl (7.5-11.1); MONO % 5.7 % (3.8-10.2); NEUT % 87.6 % (42.8-82.8); PLATELET COUNT 187 K/MM3 (134-434); RBC 2.84 M/mm3 (3.60-5.2); RDW 16.7 % (11.6-15.6); WHITE BLOOD COUNT 7.3 K/mm3 (4.0-10.0)
[2018-11-06 09:34] LABS: INR 1.18 (0.83-1.09)
[2018-11-06] MEDS ORDERED: PANTOPRAZOLE 40 MG TABLET (FP) PO SCH (10:00)
[2018-11-06] MEDS ORDERED: FERROUS SO4 325 MG TABLET (FP) PO SCH (10:00)
[2018-11-06] MEDS ORDERED: PATIENT'S OWN MEDICATION (NON-FORMULARY) (Linaclotide [Linzess] 145 MCG) PO SCH (10:00)
[2018-11-06] MEDS ORDERED: FUROSEMIDE 40 MG TABLET (FP) PO SCH (10:00)
[2018-11-06] MEDS ORDERED: ASPIRIN COATED 81 MG TABLET.EC PO SCH (10:00)
[2018-11-06] MEDS ORDERED: LOSARTAN POTASSIUM 50 MG TABLET (FP) PO SCH (10:00)
[2018-11-06] MEDS ORDERED: PATIENT'S OWN MEDICATION (NON-FORMULARY) (Insulin Lispro Protamin/Lispro [Humalog Mix 50-5 SQ SCH (10:00)
[2018-11-06] MEDS ORDERED: FUROSEMIDE 40 MG/4 ML INJECTABLE VIAL IVPUSH SCH (10:00)
[2018-11-06 10:17] LABS: ALBUMIN 2.9 g/dl (3.4-5.0); BILIRUBIN,TOTAL 0.5 mg/dL (0.2-1); BLOOD UREA NITROGEN 43.6 mg/dL (7-18); CALCIUM 8.6 mg/dL (8.5-10.1); CREATININE 1.5 mg/dL (0.55-1.3); MAGNESIUM 2.1 mg/dL (1.8-2.4); N-TERMINAL BNP 4783.9 pg/ml (5-125); PHOSPHOROUS 3.6 mg/dL (2.5-4.9); POTASSIUM 4.5 mmol/L (3.5-5.1); TOT PROT 6.5 g/dl (6.4-8.2)
--- NOTE | 2018-11-06 10:44 | PN ---
Progress Note, Physician Chief Complaint: UTI UroSepsis History of Present Illness: NAD c/o chills febrile overnight on IV abx Cultures pending UA nitrites positive - Current Medication List Current Medications: Active Medications Acetaminophen (Tylenol -) 650 mg PO Q6H PRN PRN Reason: FEVER Acetaminophen (Ofirmev Injection -) 1,000 mg IVPB Q6H PRN PRN Reason: PAIN OR FEVER Last Admin: 11/05/18 20:00 Dose: 1,000 mg Albuterol/Ipratropium (Duoneb -) 1 amp NEB Q6H PRN PRN Reason: SHORTNESS OF BREATH Aspirin (Ecotrin -) 81 mg PO DAILY ALEE Atorvastatin Calcium (Lipitor -) 40 mg PO HS [facility] Last Admin: 11/05/18 22:37 Dose: 40 mg Ferrous Sulfate (Feosol -) 325 mg PO DAILY ALEE Furosemide (Lasix Injection -) 40 mg IVPUSH DAILY [facility] Heparin Sodium (Porcine) (Heparin -) 5,000 unit SQ BID ALEE Last Admin: 11/05/18 22:32 Dose: Not Given Sodium Chloride (Normal Saline -) 250 mls @ 125 mls/hr IV ASDIR [facility] Last Admin: 11/06/18 06:13 Dose: 125 mls/hr Levofloxacin (Levaquin 500 Mg Premixed Ivpb -) 500 mg in 100 mls @ 100 mls/hr IVPB DAILY [facility]; Protocol Insulin Aspart (Novolog Vial Sliding Scale -) 1 vial SQ ACHS [facility]; Protocol Last Admin: 11/06/18 07:01 Dose: 14 units Insulin Aspart (Novolog Mix 70/30 Vial) 25 units SQ BIDAC [facility] Last Admin: 11/06/18 07:01 Dose: 25 units Losartan Potassium (Cozaar -) 100 mg PO DAILY [facility] Metoprolol Succinate (Toprol Xl -) 50 mg PO DAILY [facility] Non-Formulary Medication (Linaclotide [Linzess]) 145 mcg PO DAILY [facility] Pantoprazole Sodium (Protonix -) 40 mg PO DAILY [facility] - Objective Vital Signs: Vital Signs Temperature 99.6 F 11/06/18 06:00 Pulse Rate 85 11/06/18 06:00 Respiratory Rate 18 11/06/18 06:00 Blood Pressure 138/57 L 11/06/18 06:00 O2 Sat by Pulse Oximetry (%) 95 11/05/18 19:35 Constitutional: Yes: Well Nourished, No Distress, Calm, Obese Cardiovascular: Yes: Regular Rate and Rhythm Respiratory: Yes: Regular Gastrointestinal: Yes: Normal Bowel Sounds, Soft, Abdomen, Obese Genitourinary: Yes: WNL Musculoskeletal: Yes: Muscle Weakness Extremities: Yes: WNL Edema: No Peripheral Pulses WNL: Yes Neurological: Yes: Alert, Oriented Psychiatric: Yes: Alert, Oriented Labs: CBC, BMP 11/06/18 08:42 11/06/18 08:42 INR, PTT INR 1.18 (0.83-1.09) H 11/06/18 08:42 Problem List - Problems (1) Diabetes mellitus, insulin dependent (IDDM), uncontrolled Assessment/Plan: -Uncontrolled -Endocrinology on board -Low sodium diabetic diet -A1c at 9.1 -BGM AC HS -ISS -Novolog 70/30 25 U BID AC Code(s): E10.65 - TYPE 1 DIABETES MELLITUS WITH HYPERGLYCEMIA (2) HORACE (acute kidney injury) Assessment/Plan: -2/2 to Urosepsis -nephrology consult -IVF- decrease to 75 cc/hr to avoid fluid overload -Monitor Cr trend -hold furosemide if nephrology agrees Code(s): N17.9 - ACUTE KIDNEY FAILURE, UNSPECIFIED (3) Anemia Assessment/Plan: -Chronically anemic -previous guaiac negative -follows with Dr Alvarado o/p -monitor trend -will check stool OB again Code(s): D64.9 - ANEMIA, UNSPECIFIED Qualifiers: Anemia type: unspecified type Qualified Code(s): D64.9 - Anemia, unspecified (4) UTI (urinary tract infection) Assessment/Plan: -Cultures pending -started on Levaquin IV -ID consult -no lactic acidosis -febrile overnight -leukocytosis resolved -UA-nitrites + -Previous UTI's grew Ecoli Code(s): N39.0 - URINARY TRACT INFECTION, SITE NOT SPECIFIED (5) Sepsis Assessment/Plan: -Cultures pending -started on Levaquin IV -ID consult -no lactic acidosis -febrile overnight -leukocytosis resolved -UA-nitrites + -Previous UTI's grew Ecoli Code(s): A41.9 - SEPSIS, UNSPECIFIED ORGANISM (6) Elevated troponin I level Assessment/Plan: -cardiology consult -likely 2/2 to demand ischemia -No EKG done upon admission, order active since yesterday. requested nursing staff to do stat EKG -Repeat Trops x 2 q8h -echo done today, results pending Code(s): R74.8 - ABNORMAL LEVELS OF OTHER SERUM ENZYMES Assessment/Plan see problem list
[2018-11-06] MEDS ORDERED: SODIUM CHLORIDE 250 ML IV SCH (10:49)
--- NOTE | 2018-11-06 10:58 | CON.CARD ---
Consult Consult Specialty:: Cardiology Referred by:: Dr. Payne Reason for Consultation:: chest pain - History of Present Illness Chief Complaint: dysuria, fever, chills History of Present Illness: 68 year-old woman with a PMHx of HTN, DM-II, HLD, CAD, s/p mid LAD PCI with RADU on 05/01/2017 at [facility] with no other sig CAD, anemia (requiring recent blood transfusions x 3 in the past), no obvious source of bleeding, TERENCE, asthma, chronic diastolic CHF, prior admission 07/2018 with mild troponin elevation in setting of severe anemia felt to be secondary to demand ischemia, now admitted with fevers, chills, dysuria, being treated for presumed urosepsis. Found to be febrile, tachycardic, evidence of FALGUNI c/w urosepsis and anemic. Troponin level was sent in the ER which was wnl. A 2nd set of cardiac enzymes was sent this am which showed normal CK level but troponin increased to 1.23. Pt was seen and examined today in [facility]. she denies any chest pain currently or since coming to the hospital. she does have a history of chronic mild intermittent chest pain. no sob currently. no palpitations, pnd, orthopnea. echocardiogram 08/10/2018: Normal LV size with normal wall motion and systolic function. LVEF = 50-55%. Normal RV. Normal LA and RA in size. Mild MR and mild TR. - History Source History Provided By: Patient, Medical Record Limitations to Obtaining History: No Limitations - Past Medical History Cardio/Vascular: Yes: CAD (S/P STENTING), HTN, Hyperlipdemia Pulmonary: Yes: Asthma, Bronchitis, Pneumonia, Sleep Apnea Gastrointestinal: Yes: GERD Renal/: Yes: Renal Inusuff ...: No Musculoskeletal: Yes: Osteoarthritis Endocrine: Yes: Diabetes Mellitus - Alcohol/Substance Use Hx Alcohol Use: No History of Substance Use: reports: None - Smoking History Smoking history: Never smoked Have you smoked in the past 12 months: No Aproximately how many cigarettes per day: 0 - Social History Usual Living Arrangement: With Spouse ADL: Family Assistance Occupation: [employer] History of Recent Travel: No Home Medications - Allergies Allergies/Adverse Reactions: Allergies Allergy/AdvReac Type Severity Reaction Status Date / Time Penicillins Allergy Difficulty Verified 11/05/18 11:31 Breathing - Home Medications Home Medications: Ambulatory Orders Atorvastatin Ca [Lipitor] 80 mg PO HS 08/09/18 Ferrous Sulfate 325 mg PO DAILY 08/09/18 Linaclotide [Linzess] 145 mcg PO DAILY 08/09/18 Furosemide [Lasix -] 40 mg PO DAILY #30 tablet MDD 1 08/10/18 Pantoprazole Sodium [Protonix -] 40 mg PO DAILY #30 tablet.ec MDD 1 08/10/18 Aspirin Coated [Ecotrin -] 81 mg PO DAILY tablet.ec 08/12/18 Insulin Lispro Protamin/Lispro [Humalog Mix 50-50 Kwikpen] 25 units SQ BID 10/08 Losartan Potassium 1 tab PO DAILY 10/08/18 Metoprolol Succinate 1 tab PO DAILY 10/08/18 Ranitidine [Zantac -] 1 tab PO DAILY 10/08/18 Nystatin/Triamcinolone Top Cr [Mycolog II -] 2 applic TP BID #1 tube 10/12/18 Family Disease History - Family Disease History Family Disease History: Diabetes: Mother (: DM II complications), Sister (6 , 1 of old age), Other: Father (: CVA), Mother, Brother (3, 2 from "Old age", 1 from Lung Ca), Sister, Son (5, healthy), Daughter (1, healthy) Review of Systems - Review of Systems Constitutional: reports: Chills, Diaphoresis, Fever, Malaise. denies: No Symptoms, Lethargy, Loss of Appetite, Night Sweats, Unintentional Wgt. Loss, Weakness, Other Eyes: denies: No Symptoms, Blind Spots, Blurred Vision, Double Vision, Eye Pain , Floaters, Photophobia, Recent Change in Vision, Other HENT: denies: No Symptoms, Difficult Swallowing, Ear Discharge, Ear Pain, Epistaxis, Gingival Bleeding, Hearing Loss, Mouth Swelling, Nasal Congestion, Ocular Prosthesis, Throat Pain, Toothache, Ringing in Ears, Other Neck: denies: No Symptoms, Decreased ROM, Lumps, Pain on Movement, Stiffness, Swollen Glands, Tenderness, Other Cardiovascular: denies: No Symptoms, Chest Pain, Edema, Palpitations, Shortness of Breath, Other Respiratory: denies: No Symptoms, Cough, Exercise Intolerance, Hemoptysis, Orthopnea, PND, Snoring, SOB, SOB on Exertion, Wheezing, Other Gastrointestinal: denies: No Symptoms, Abdominal Pain, Bloating, Constipation, Diarrhea, Dysphagia, Indigestion, Melena, Nausea, Rectal Bleeding, Vomiting, Vomiting Blood, Other Genitourinary: reports: Dysuria. denies: No Symptoms, Burning, Discharge, Flank Pain, Frequency, Hematuria, Incontinence, Lesions, Menses, Pain, Testicular Mass, Testicular Pain, Testicular Swelling, Urgency, Vaginal Bleeding , Other Breasts: denies: No Symptoms Reported, See HPI, Breast Implants, Discharge from Nipple, Lumps, Pain, Skin Changes, Other Musculoskeletal: denies: No Symptoms, Back Pain, Crepitus, Decreased ROM, Extremity Pain, Joint Pain, Joint Swelling, Muscle Pain, Muscle Cramps, Muscle Weakness, Other Integumentary: denies: No Symptoms, Blister, Bruising, Change in Color, Eczema, Erythema, Incision, Lesions, Lump, Pallor, Pruritis, Rash, Wound, Other Neurological: denies: No Symptoms, Change in LOC, Change in Speech, Confusion, Dizziness, Headache, Incoordination, Numbness, Parasthesia, Pre-Existing Deficit , Seizure, Syncope, Tremors, Unsteady Gait, Weakness, Other Endocrine: denies: No Symptoms, Excessive Sweating, Flushing, Increased Hunger, Increased Thirst, Intolerance to Cold, Intolerance to Heat, Unexplained Weight Gain, Unexplained Weight Loss, Other Hematology/Lymphatic: denies: No Symptoms, Easily Bruised, Excessive Bleeding, Swollen Glands, Other Psychiatric: denies: No Symptoms, Altered Sleep Pattern, Anxiety, Depression, Hallucinations, Panic, Paranoia, Suicidal, Other - Risk Factors Known Risk Factors: Yes: Diabetes Mellitus, Hypercholesterolemia, Hypertension Vital Signs: Vital Signs Temperature 99.6 F 11/06/18 06:00 Pulse Rate 85 11/06/18 06:00 Respiratory Rate 18 11/06/18 06:00 Blood Pressure 138/57 L 11/06/18 06:00 O2 Sat by Pulse Oximetry (%) 95 11/05/18 19:35 Constitutional: Yes: No Distress, Calm Eyes: Yes: Conjunctiva Clear, EOM Intact HENT: Yes: Atraumatic, Normocephalic Neck: Yes: Supple, Trachea Midline Respiratory: Yes: Regular, CTA Bilaterally. No: Rales, Rhonchi, SOB, Wheezes Gastrointestinal: Yes: Normal Bowel Sounds, Soft. No: Distention, Tenderness Cardiovascular: Yes: Regular Rate and Rhythm. No: Bradycardia, Tachycardia, Pulse Irregular, Gallop, Rub, Varicosities JVD: No Carotid Bruit: No PMI: Non-Displaced Heart Sounds: Yes: S1, S2. No: Split S2, S3, S4, Clicks, Gallop, Rub, Bruit Murmur: No: Systolic Murmur, Diastolic Murmur Edema: Yes Edema: LLE: Trace, RLE: Trace Peripheral Pulses WNL: Yes Neurological: Yes: Alert, Oriented Psychiatric: Yes: Alert, Oriented - Other Data Labs, Other Data: CBC, BMP 11/06/18 08:42 11/06/18 08:42 INR, PTT INR 1.18 (0.83-1.09) H 11/06/18 08:42 Troponin, BNP 11/05/18 11/06/18 12:24 08:42 Troponin I < 0.02 1.23 H* B-Natriuretic Peptide 2305.9 H 4783.9 H Troponin, BNP 11/05/18 11/06/18 12:24 08:42 Troponin I < 0.02 1.23 H* B-Natriuretic Peptide 2305.9 H 4783.9 H pending Echo: Pending, Report Reviewed Imaging - Results Chest X-ray: Report Reviewed, Image Reviewed EKG: Report Reviewed, Image Reviewed Other: Report Reviewed, Image Reviewed Assessment/Plan 68 year-old woman with a PMHx of HTN, DM-II, HLD, CAD, s/p mid LAD PCI with RADU on 05/01/2017 at [facility] with no other sig CAD, anemia (requiring recent blood transfusions x 3 in the past), no obvious source of bleeding, TERENCE, asthma, chronic diastolic CHF, prior admission 07/2018 with mild troponin elevation in setting of severe anemia felt to be secondary to demand ischemia, now admitted with fevers, chills, dysuria, being treated for presumed urosepsis. Found to be febrile, tachycardic, evidence of FALGUNI c/w urosepsis and anemic. Troponin level was sent in the ER which was wnl. A 2nd set of cardiac enzymes was sent this am which showed normal CK level but troponin increased to 1.23. she denies any chest pain currently or since coming to the hospital. she does have a history of chronic mild intermittent chest pain. no sob currently. no palpitations, pnd, orthopnea. Elevated troponin-with normal CK level, no chest pain or sob, known CAD with PCI with RADU mLAD 05/01/17 no other siginificant residual CAD -in setting of sepsis, FALGUNI, anemia, likely secondary to demand ischemia Type II ND, not c/w ACS or Type I ND -echocardiogram 08/10/2018: Normal LV size with normal wall motion and systolic function. LVEF = 50-55%. Normal RV. Normal LA and RA in size. Mild MR and mild TR. -a repeat echo was done today, fup results to evaluate LV function -trend cardiac enzymes -transfer to tele -[facility] home ASA, statin, metoprolol -hold off on full dose heparin and plavix given anemia and given not ACS -treat sepsis, anemia, FALGUNI as per primary team Chronic diastolic CHF: in the past felt likely due to severe anemia, high output in the setting LV diastolic dysfunction. -currently euvolemic and evidence of intravascular depletion on labs in setting of sepsis and anemia -can hold IV Lasix -can use Lasix prn for now
--- NOTE | 2018-11-06 11:27 | EKG ---
Test Reason : Blood Pressure : / mmHG Vent. Rate : 086 BPM Atrial Rate : 086 BPM P-R Int : 162 ms QRS Dur : 106 ms QT Int : 370 ms P-R-T Axes : 041 -32 100 degrees QTc Int : 442 ms NORMAL SINUS RHYTHM LEFT AXIS DEVIATION T WAVE ABNORMALITY, CONSIDER LATERAL ISCHEMIA ABNORMAL ECG WHEN COMPARED WITH ECG OF 08-OCT-2018 11:12, NO SIGNIFICANT CHANGE WAS FOUND Confirmed by Jose Elias Stewart MD ([id number]) on 11/06/2018 11:26:38 AM Referred By: Confirmed By:Jose Elias Stewart MD
--- NOTE | 2018-11-06 11:27 | PN ---
Progress Note (short form) - Note Progress Note: ID consult dictated imp/reccd 68 yo female with diabetes, CAD admitted with 2 day history of fevers, chills, dysuria in ED she had pyuria and fever prior history of ECOLI bacteremia and UTI in Apr 2018 treated with azactam and discharged on levaquin renal/bladder sono no hydronephrosis pen allergy throat swelling chronic anemia fevers/chills- suspect recurrent UTI continue levaquin, add azactam f/u cultures horace-if renal function worsens will repeat renal sonogram elevated troponins/cad- per cardiology penicillin allergy poorly controlled DM- hgbAIC 9 chronic anemia Problem List - Problems (1) Fever Code(s): R50.9 - FEVER, UNSPECIFIED (2) UTI (urinary tract infection) Code(s): N39.0 - URINARY TRACT INFECTION, SITE NOT SPECIFIED (3) Elevated troponin I level Code(s): R74.8 - ABNORMAL LEVELS OF OTHER SERUM ENZYMES (4) HORACE (acute kidney injury) Code(s): N17.9 - ACUTE KIDNEY FAILURE, UNSPECIFIED (5) DM2 (diabetes mellitus, type 2) Code(s): E11.9 - TYPE 2 DIABETES MELLITUS WITHOUT COMPLICATIONS (6) Penicillin allergy Code(s): Z88.0 - ALLERGY STATUS TO PENICILLIN (7) Anemia Code(s): D64.9 - ANEMIA, UNSPECIFIED Qualifiers: Anemia type: unspecified type Qualified Code(s): D64.9 - Anemia, unspecified
[2018-11-06] MEDS ORDERED: AZTREONAM 1 GM VIAL (RESTRICTED TO ID) IVPB SCH (11:30)
--- NOTE | 2018-11-06 12:01 | ECHO ---
Version: 1 Name: CARLOS ARCINIEGA Exam: Adult Echocardiogram Study Date: 11/06/2018, 9:24 AM Age: 68 Years MMode/2D Measurements & Calculations IVSd: 1.10 cm LVIDs: 3.4 cm LVIDd: 5.1 cm LVPWd: 1.02 cm LVOT diam: 1.73 cm Ao root diam: 2.40 cm LA dimension: 3.6 cm Doppler Measurements & Calculations MV E max rinku: 157.0 cm/sec MV A max rinku: 89.8 cm/sec MV E/A: 1.75 MR max P.2 mmHg Ao max P.8 mmHg SILAS(I,D): 1.18 cm Ao mean P.2 mmHg LV V1 mean: 78.8 cm/sec Ao V2 max: 228.0 cm/sec LV V1 mean P.9 mmHg PI end-d rinku: 152.9 cm/sec TR max rinku: 265.0 cm/sec TR max P.3 mmHg Left Ventricle The left ventricular size, thickness and function are normal. Right Ventricle The right ventricle is normal in size and function. Atria Normal left and right atrial size and function. Mitral Valve The mitral valve is normal. Tricuspid Valve The tricuspid valve is normal in structure and function. There is mild to moderate tricuspid regurgi tation. Aortic Valve Thickening of the aortic valve leaflets with an area of focal calcifcation of the left coronary cusp . Pulmonic Valve The pulmonic valve is normal in structure and function. Mild pulmonic valvular regurgitation. Great Vessels The aortic root is normal size. Pericardium/Pleura There is no pericardial effusion. Summary Statements The left ventricular size, thickness and function are normal The right ventricle is normal in size and function. Normal left and right atrial size and function. The mitral valve is normal. The tricuspid valve is normal in structure and function. Thickening of the aortic valve leaflets with an area of focal calcifcation of the left coronary cusp . There is mild to moderate tricuspid regurgitation. EF 60% PASP 33 mmHg MD Tony Sparks 11/06/2018, 11:00 AM Ordering Physician: Jen Coleman Referring Physician: JOO GOLDMAN Performed By: Jennifer Sage
[2018-11-06] MEDS: HEPARIN NA (PORCINE) 5,000 UNITS/ML 1ML VIAL SQ SCH (12:03)
[2018-11-06] MEDS ORDERED: ALPRAZolam 0.25 MG TABLET PO PRN (12:05)
[2018-11-06] MEDS ORDERED: SODIUM CHLORIDE 1,000 ML IV SCH (12:15)
--- NOTE | 2018-11-06 12:56 | EKG ---
Test Reason : Blood Pressure : / mmHG Vent. Rate : 090 BPM Atrial Rate : 090 BPM P-R Int : 146 ms QRS Dur : 104 ms QT Int : 374 ms P-R-T Axes : 072 -40 093 degrees QTc Int : 457 ms NORMAL SINUS RHYTHM LEFT AXIS DEVIATION ABNORMAL QRS-T ANGLE, CONSIDER PRIMARY T WAVE ABNORMALITY ABNORMAL ECG WHEN COMPARED WITH ECG OF 05-NOV-2018 12:31, NO SIGNIFICANT CHANGE WAS FOUND Confirmed by MD Herlinda, Jose ([id number]) on 11/06/2018 12:56:36 PM Referred By: JOO GOLDMAN Confirmed By:Jose Pate MD
[2018-11-06] MEDS: AZTREONAM 1 GM in DEXTROSE 5%-WATER - 50 ML IVPB SCH ×2 (13:30→19:09)
--- NOTE | 2018-11-06 13:31 | CONSULT ---
Consult Consult Specialty:: Nephrology Reason for Consultation:: CKD - History of Present Illness Chief Complaint: dysuria and nausea History of Present Illness: Pt is a 68 year old female with pmhx of ckd, chf, dm, cad, htn, anemia, and hld who presents with dysuria. She was found to have a uti and sepsis. She was also found to have elevated cardiac enzymes and was transferred to [facility]. She complains of malaise and chills. - History Source History Provided By: Patient - Past Medical History Cardio/Vascular: Yes: CAD (S/P STENTING), HTN, Hyperlipdemia Pulmonary: Yes: Asthma, Bronchitis, Pneumonia, Sleep Apnea Gastrointestinal: Yes: GERD Renal/: Yes: Renal Inusuff ...: No Musculoskeletal: Yes: Osteoarthritis Endocrine: Yes: Diabetes Mellitus - Alcohol/Substance Use Hx Alcohol Use: No History of Substance Use: reports: None - Smoking History Smoking history: Never smoked Have you smoked in the past 12 months: No Aproximately how many cigarettes per day: 0 - Social History Usual Living Arrangement: With Spouse ADL: Family Assistance Occupation: [employer] History of Recent Travel: No Home Medications - Allergies Allergies/Adverse Reactions: Allergies Allergy/AdvReac Type Severity Reaction Status Date / Time Penicillins Allergy Difficulty Verified 11/05/18 11:31 Breathing - Home Medications Home Medications: Ambulatory Orders Atorvastatin Ca [Lipitor] 80 mg PO HS 08/09/18 Ferrous Sulfate 325 mg PO DAILY 08/09/18 Linaclotide [Linzess] 145 mcg PO DAILY 08/09/18 Furosemide [Lasix -] 40 mg PO DAILY #30 tablet MDD 1 08/10/18 Pantoprazole Sodium [Protonix -] 40 mg PO DAILY #30 tablet.ec MDD 1 08/10/18 Aspirin Coated [Ecotrin -] 81 mg PO DAILY tablet.ec 08/12/18 Insulin Lispro Protamin/Lispro [Humalog Mix 50-50 Kwikpen] 25 units SQ BID 10/08 Losartan Potassium 1 tab PO DAILY 10/08/18 Metoprolol Succinate 1 tab PO DAILY 10/08/18 Ranitidine [Zantac -] 1 tab PO DAILY 10/08/18 Nystatin/Triamcinolone Top Cr [Mycolog II -] 2 applic TP BID #1 tube 10/12/18 Family Disease History - Family Disease History Family Disease History: Diabetes: Mother (: DM II complications), Sister (6 , 1 of old age), Other: Father (: CVA), Mother, Brother (3, 2 from "Old age", 1 from Lung Ca), Sister, Son (5, healthy), Daughter (1, healthy) Review of Systems - Review of Systems Constitutional: reports: Chills, Fever, Malaise Eyes: reports: No Symptoms HENT: reports: No Symptoms Neck: reports: No Symptoms Cardiovascular: reports: No Symptoms Genitourinary: reports: Dysuria. denies: Flank Pain Musculoskeletal: reports: No Symptoms Integumentary: reports: No Symptoms Neurological: reports: Dizziness Endocrine: reports: No Symptoms Hematology/Lymphatic: reports: No Symptoms Psychiatric: reports: No Symptoms Physical Exam Vital Signs: Vital Signs Temperature 99.6 F 11/06/18 06:00 Pulse Rate 85 11/06/18 06:00 Respiratory Rate 18 11/06/18 06:00 Blood Pressure 138/57 L 11/06/18 06:00 O2 Sat by Pulse Oximetry (%) 95 11/05/18 19:35 Constitutional: Yes: Mild Distress Eyes: Yes: Conjunctiva Clear HENT: Yes: Atraumatic Cardiovascular: Yes: S1, S2 Respiratory: Yes: CTA Bilaterally Gastrointestinal: Yes: Soft Renal/: Yes: WNL Musculoskeletal: Yes: WNL Edema: Yes Edema: LLE: Trace, RLE: Trace Neurological: Yes: Oriented Psychiatric: Yes: Oriented Labs: CBC, BMP 11/06/18 08:42 11/06/18 08:42 Laboratory Tests 10/11/18 10/11/18 10/11/18 07:18 07:18 07:18 Ur Leukocyte Esterase Urine WBC (Auto) Protein/Creatinin Ratio MALLIKA M-Magnus Not observed MALLORY Screen Negative c-ANCA <1:20 Proteinase 3 (PR3) <3.5 p-ANCA <1:20 Atypical p-ANCA <1:20 Myeloperoxidase Ab <9.0 Double Strand DNA Ab <1 Glomerular Base Memb Ab 3 Free [place] LC, Quant 61.2 H Free Lambda LC, Quant 23.7 Free [place]/Lambda Ratio 2.58 H Hepatitis A Ab Total Positive H Hep Bs Antigen Negative Hep B Core Total Ab Negative Hep B Core IgM Ab Negative Hepatitis Be Antibody Negative Hepatitis Be Antigen Negative 10/12/18 11/05/18 11:30 12:55 Ur Leukocyte Esterase 3+ H Urine WBC (Auto) 1321 Protein/Creatinin Ratio 1.760 MALLIKA M-Magnus MALLORY Screen c-ANCA Proteinase 3 (PR3) p-ANCA Atypical p-ANCA Myeloperoxidase Ab Double Strand DNA Ab Glomerular Base Memb Ab Free [place] LC, Quant Free Lambda LC, Quant Free [place]/Lambda Ratio Hepatitis A Ab Total Hep Bs Antigen Hep B Core Total Ab Hep B Core IgM Ab Hepatitis Be Antibody Hepatitis Be Antigen Imaging - Results Cat Scan: Report Reviewed Problem List - Problems (1) Fever Code(s): R50.9 - FEVER, UNSPECIFIED (2) Sepsis Code(s): A41.9 - SEPSIS, UNSPECIFIED ORGANISM Assessment/Plan Current Medications Generic Name Dose Route Start Last Admin Trade Name Freq PRN Reason Stop Dose Admin Acetaminophen 650 mg 11/05/18 16:30 Tylenol - PO Q6H PRN FEVER Acetaminophen 1,000 mg 11/05/18 19:45 11/05/18 20:00 Ofirmev Injection - IVPB 1,000 mg Q6H PRN Administration PAIN OR FEVER Albuterol/Ipratropium 1 amp 11/05/18 19:50 Duoneb - NEB Q6H PRN SHORTNESS OF BREATH Alprazolam 0.5 mg 11/06/18 12:05 11/06/18 12:20 Xanax - PO 0.5 mg BID PRN Administration ANXIETY Aspirin 81 mg 11/06/18 10:00 11/06/18 12:04 Ecotrin - PO 81 mg DAILY ALEE Administration Atorvastatin Calcium 40 mg 11/05/18 22:00 11/05/18 22:37 Lipitor - PO 40 mg HS ALEE Administration Ferrous Sulfate 325 mg 11/06/18 10:00 11/06/18 12:04 Feosol - PO 325 mg DAILY ALEE Administration Furosemide 40 mg 11/06/18 10:00 11/06/18 12:01 Lasix Injection - IVPUSH Not Given DAILY ALEE Heparin Sodium (Porcine) 5,000 unit 11/05/18 22:00 11/06/18 12:03 Heparin - SQ 5,000 unit BID ALEE Administration Levofloxacin 500 mg in 100 mls @ 100 mls/hr 11/06/18 10:00 11/06/18 12:03 Levaquin 500 Mg Premixed Ivpb - IVPB 100 mls/hr DAILY ALEE Administration Protocol Aztreonam 1 gm/ Dextrose 50 mls @ 100 mls/hr 11/06/18 12:15 IVPB Q8H-IV ALEE Sodium Chloride 1,000 mls @ 75 mls/hr 11/06/18 12:15 11/06/18 12:21 Normal Saline - IV 75 mls/hr ASDIR ALEE Administration Insulin Aspart 1 vial 11/06/18 01:02 11/06/18 12:16 Novolog Vial Sliding Scale - SQ 12 units ACHS ALEE Administration Protocol Insulin Aspart 25 units 11/06/18 07:00 11/06/18 07:01 Novolog Mix 70/30 Vial SQ 25 units BIDAC ALEE Administration Non-Formulary Medication 145 mcg 11/06/18 10:00 Linaclotide [Linzess] PO DAILY ALEE Pantoprazole Sodium 40 mg 11/06/18 10:00 11/06/18 12:04 Protonix - PO 40 mg DAILY ALEE Administration Impression 1. CKD 2. proteinuria 3. elevated kappa chains with abnormal ratio 4. symptomatic anemia 5. DM 6. obesity 7. cad 8. chf 9. hx of positive mallory Plan - hold lasix - start fluids - monitor renal function - follow cultures - cont abx - light chains elevated on last visit
--- NOTE | 2018-11-06 13:40 | CONS ---
INFECTIOUS DISEASE CONSULTATION DATE OF CONSULTATION: DATE OF DICTATION: 11/06/2018 REQUESTING PHYSICIAN: Rigo Payne MD HISTORY: This is a 68-year-old woman with a history of longstanding diabetes over 30 years, coronary artery disease status post 2 stents admitted with a 2-day history of fevers, chills, and dysuria. In the ER, she was noted to have pyuria and fever. She has a prior history of E. coli bacteremia and UTI in April 2018 treated with Azactam and discharged on Levaquin. She had a renal bladder sonogram at that time that showed no hydronephrosis. She is allergic to PENICILLIN, which causes throat swelling. She currently is resting comfortably. She was started in the emergency room on Levaquin. PAST MEDICAL HISTORY: Notable for coronary artery disease, hypertension, hyperlipidemia. Has a history of asthma. She has had pneumonia, sleep apnea, GERD, renal insufficiency, anemia, osteoarthritis, and diabetes. As well, she has limited vision especially in her left eye. She has a history as well of chronic anemia and is being evaluated by Hematology as well as GI. PAST SURGICAL HISTORY: Notable for right eye surgery. She has had arthroscopy of her knees. SOCIAL HISTORY: She is originally from [place]. She lives with her family. She has no history of cigarette, alcohol, or substance use. There is no history of any travel. They have a pet dog. REVIEW OF SYSTEMS: Notable for dysuria for 4 days, fevers and chills for 2 accompanied with dizziness. Notable for some chest pain that resolved prior to admission and the dysuria, which she states has improved as well. She has no abdominal pain. ALLERGIES: PENICILLIN allergy is notable for throat closing. MEDICATIONS: At home include atorvastatin, ferrous sulfate, Linzess, Lasix, Protonix, Ecotrin, insulin, losartan, metoprolol, Zantac, and Mycolog. FAMILY HISTORY: Notable for diabetes. Father of a CVA. She has a sibling who had lung cancer. Children are all well. PHYSICAL EXAMINATION: General: She is awake and alert. Resting comfortably. Vital Signs: Temperature now is 99.6, maximum temperature 102.4, pulse of 85, blood pressure 138/57, respiratory rate of 18. HEENT: She is normocephalic. Her eyes are anicteric. Neck: Supple. Lungs: Clear to auscultation. Heart: Regular rate and rhythm. Abdomen: She has no CVA or suprapubic pain. Extremities: Notable for trace edema. DIAGNOSTIC DATA: White count was 12.1 yesterday, today is 7.3, hemoglobin 7.9, platelets are 187. BUN 43, creatinine 1.5. Troponin is 1.23. Urinalysis is 3+ leukocytosis with 1321 white cells. Cultures are pending. Chest x-ray is negative for any acute process. In summary, this is an elderly woman with: 1. Fevers and chills. I suspect recurrent UTI. Given her major PENICILLIN allergy, would continue Levaquin and add Azactam. Follow up cultures. She received a dose of vancomycin overnight. 2. HORACE. Creatinine of 1.5. If renal function worsens, would repair the renal sonogram. 3. Elevated troponins, history of coronary artery disease. Management per Cardiology. 4. Poorly controlled diabetes. Hemoglobin A1C of 9, chronic anemia. Outpatient workup per Hematology. Ant [id number]
[2018-11-06] MEDS ORDERED: AZTREONAM 1 GM VIAL (RESTRICTED TO ID) ONE ×2 (14:56→17:04)
[2018-11-06] MEDS ORDERED: DEXTROSE 5%-WATER - 50 ML IVPB ONE ×2 (14:57→17:04)
[2018-11-06] MEDS ORDERED: ACETAMINOPHEN 325 MG TABLET (FP) PO PRN (15:33)
[2018-11-06] MEDS ORDERED: ALBUTEROL SO4 2.5/IPRATROPIUM 0.5 INH SOL 3 ML VIAL.NEB. NEB PRN (15:33)
[2018-11-06] MEDS ORDERED: MAG HYDROX/AL HYDROX/SIMETH 30 ML UNIT-DOSE CUP PO ONE (20:47)
[2018-11-06] MEDS ORDERED: HEPARIN NA (PORCINE) 5,000 UNITS/ML 1ML VIAL SQ SCH (22:00)
[2018-11-06] MEDS ORDERED: ATORVASTATIN CA 40 MG TABLET (FP) PO SCH (22:00)
[2018-11-07] MEDS ORDERED: INSULIN (NOVOLOG MIX 70/30) 100 UNITS/ML MDV SQ SCH ×2 (00:06→00:09)
--- NOTE | 2018-11-07 00:11 | PN ---
Progress Note (short form) - Note Progress Note: has lower sugars and dyspnea with rest Current Active Problems Diabetes 1.5, managed as type 1 (Acute) Dyspnea on exertion (Acute) Elevated troponin I level (Acute) Fever (Acute) Sepsis (Acute) Abnormal Lab Results 11/06/18 11/06/18 11/06/18 08:42 08:42 08:42 RBC 2.84 L Hgb 7.9 L Hct 24.3 L RDW 16.7 H Neutrophils % 87.6 H Lymphocytes % 5.9 L D PT with INR 14.00 H INR 1.18 H BUN 43.6 H Creatinine 1.5 H Random Glucose 229 H Hemoglobin A1c % AST 12 L Troponin I 1.23 H* B-Natriuretic Peptide 4783.9 H Albumin 2.9 L Triglycerides 155 H 11/06/18 11/06/18 11/06/18 08:42 16:25 21:35 RBC Hgb Hct RDW Neutrophils % Lymphocytes % PT with INR INR BUN Creatinine Random Glucose Hemoglobin A1c % 9.1 H AST Troponin I 1.57 H* 1.54 H* B-Natriuretic Peptide Albumin Triglycerides plan: iv antibiotic hematology consult bgm qid novolog scale lower novolog doses cardiology follow up Problem List - Problems (1) Diabetes 1.5, managed as type 1 Code(s): E13.9 - OTHER SPECIFIED DIABETES MELLITUS WITHOUT COMPLICATIONS (2) Dyspnea on exertion Code(s): R06.09 - OTHER FORMS OF DYSPNEA (3) Sepsis Code(s): A41.9 - SEPSIS, UNSPECIFIED ORGANISM (4) HORACE (acute kidney injury) Code(s): N17.9 - ACUTE KIDNEY FAILURE, UNSPECIFIED (5) Acute exacerbation of CHF (congestive heart failure) Code(s): I50.9 - HEART FAILURE, UNSPECIFIED Qualifiers: Heart failure type: unspecified Qualified Code(s): I50.9 - Heart failure, unspecified (6) Acute hypoxemic respiratory failure Code(s): J96.01 - ACUTE RESPIRATORY FAILURE WITH HYPOXIA (7) Anemia Code(s): D64.9 - ANEMIA, UNSPECIFIED Qualifiers: Anemia type: unspecified type Qualified Code(s): D64.9 - Anemia, unspecified
[2018-11-07] MEDS ORDERED: DEXTROSE 5%-WATER - 50 ML IVPB ONE ×3 (02:18→18:30)
[2018-11-07] MEDS ORDERED: AZTREONAM 1 GM VIAL (RESTRICTED TO ID) ONE ×3 (02:18→18:30)
[2018-11-07] MEDS: AZTREONAM 1 GM in DEXTROSE 5%-WATER - 50 ML IVPB SCH ×3 (02:30→18:55)
[2018-11-07] MEDS ORDERED: ONDANSETRON 4 MG TABLET PO ONE ×2 (06:42→08:58)
--- NOTE | 2018-11-07 06:44 | RAPID ---
Physical Examination Vital Signs: Rapid response called to 4W at 06:33. Rapid response team arrived to room 419- 01 and pt was found sitting on toilet with nurse by her side. Per nurses, pt was sitting on toilet when she passed out (witnessed). She was out for about 20 seconds before regaining consciousness. Pt did not physically fall at all and did not hit her head. She was then moved to her bed and began experiencing nausea and vomiting. Pt denies any chest pain. Vitals: HR: 99 BP: 164/69 O2: 97% PE: Heart: RRR, S1, S2 Lungs: CTAB Abd: soft, nontender, normal bowel sounds Ext: 2+ pulses, no peripheral edema. Pt's tele monitoring at time of event was reviewed. She was bradycardic with paused heartbeat. EKG, trops, CK-MB, BNP, Mg were ordered. Pt was given 81mg asa and 4mg zofran for nausea. Cardiology (Dr. Elizabeth) was consulted. Per cardio, will start pt on 50mg metoprolol. Pt is no longer vomiting and is not complaining of any pain. Will f/u labs and cont close monitoring. Labs: CBC, BMP 11/06/18 08:42 11/06/18 08:42
[2018-11-07] MEDS ORDERED: ASPIRIN COATED 81 MG TABLET.EC ONE (06:45)
[2018-11-07] MEDS ORDERED: INSULIN SLIDING SCALE (NOVOLOG) 1 VIAL SQ SCH (07:00)
[2018-11-07 07:05] LABS: BASO % 0.5 % (0-2.0); EOS % 1.1 % (0-4.5); HEMATOCRIT 20.1 % (32.4-45.2); LYMPH % 17.6 % (8-40); MCH 27.9 pg (25.7-33.7); MCHC 32.9 g/dl (32.0-36.0); MEAN CELL VOLUME 84.9 fl (80-96); MEAN PLT VOLUME 9.9 fl (7.5-11.1); MONO % 8.6 % (3.8-10.2); NEUT % 72.2 % (42.8-82.8); PLATELET COUNT 162 K/MM3 (134-434); RBC 2.37 M/mm3 (3.60-5.2); RDW 16.9 % (11.6-15.6); WHITE BLOOD COUNT 6.3 K/mm3 (4.0-10.0)
[2018-11-07 07:34] LABS: ALBUMIN 2.6 g/dl (3.4-5.0); BILIRUBIN,TOTAL 0.3 mg/dL (0.2-1); BLOOD UREA NITROGEN 39.7 mg/dL (7-18); CALCIUM 8.2 mg/dL (8.5-10.1); CREATININE 1.5 mg/dL (0.55-1.3); POTASSIUM 4.4 mmol/L (3.5-5.1); TOT PROT 6.1 g/dl (6.4-8.2)
[2018-11-07 07:39] LABS: MAGNESIUM 2.2 mg/dL (1.8-2.4); N-TERMINAL BNP 4532.7 pg/ml (5-125)
[2018-11-07 07:48] LABS: HEMOGLOBIN 6.6 GM/dL (10.7-15.3)
[2018-11-07] MEDS ORDERED: FUROSEMIDE 40 MG/4 ML INJECTABLE VIAL IVPUSH ONE ×3 (08:20→09:15)
[2018-11-07] MEDS ORDERED: ONDANSETRON 4 MG/2 ML VIAL IVPUSH PRN ×2 (08:21→08:58)
--- NOTE | 2018-11-07 08:25 | PN ---
Progress Note, Physician - Current Medication List Current Medications: Active Medications Acetaminophen (Tylenol -) 650 mg PO Q6H PRN PRN Reason: FEVER Acetaminophen (Ofirmev Injection -) 1,000 mg IVPB Q6H PRN PRN Reason: FEVER Albuterol/Ipratropium (Duoneb -) 1 amp NEB Q6H PRN PRN Reason: SHORTNESS OF BREATH Alprazolam (Xanax -) 0.5 mg PO BID PRN PRN Reason: ANXIETY Atorvastatin Calcium (Lipitor -) 40 mg PO HS [facility] Last Admin: 11/06/18 21:14 Dose: 40 mg Chlorhexidine Gluconate (Hibiclens For Decolonization -) 1 applic TP HS [facility] Ferrous Sulfate (Feosol -) 325 mg PO DAILY [facility] Furosemide (Lasix Injection -) 40 mg IVPUSH ONCE ONE Stop: 11/07/18 08:21 Aztreonam 1 gm/ Dextrose 50 mls @ 100 mls/hr IVPB Q8H-IV ALEE Last Admin: 11/07/18 02:30 Dose: 100 mls/hr Sodium Chloride (Normal Saline -) 1,000 mls @ 75 mls/hr IV ASDIR ALEE Last Admin: 11/06/18 12:21 Dose: 75 mls/hr Levofloxacin (Levaquin 500 Mg Premixed Ivpb -) 500 mg in 100 mls @ 100 mls/hr IVPB DAILY [facility]; Protocol Pantoprazole Sodium 80 mg/ (Sodium Chloride) 100 mls @ 10 mls/hr IVPB Q10H [facility] Insulin Aspart (Novolog Vial Sliding Scale -) 1 vial SQ ACHS [facility]; Protocol Last Admin: 11/07/18 06:05 Dose: Not Given Metoprolol Succinate (Toprol Xl -) 50 mg PO DAILY [facility] Mupirocin (Bactroban Ointment (For Decolonization) -) 1 applic NS BID [facility] Stop: 11/12/18 09:59 Non-Formulary Medication (Linaclotide [Linzess]) 145 mcg PO DAILY [facility] Ondansetron HCl (Zofran Injection) 4 mg IVPUSH Q6H PRN PRN Reason: NAUSEA - Objective Vital Signs: Vital Signs Temperature 100.8 F H 11/07/18 06:00 Pulse Rate 95 H 11/07/18 06:00 Respiratory Rate 20 11/07/18 06:00 Blood Pressure 142/72 11/07/18 06:00 O2 Sat by Pulse Oximetry (%) 98 11/06/18 21:00 Labs: CBC, BMP 11/07/18 06:50 11/07/18 06:50 INR, PTT INR 1.18 (0.83-1.09) H 11/06/18 08:42 Problem List - Problems (1) GI bleed Assessment/Plan: acute on chronic -hbg 6-Transfuse prbc -hold asa and heparin- -PPI -GI consult Code(s): K92.2 - GASTROINTESTINAL HEMORRHAGE, UNSPECIFIED (2) Sepsis Assessment/Plan: -Cultures pending Microbiology 11/05/18 12:55 Urine - Urine Clean Catch Urine Culture - Preliminary Gram Negative Jacques 11/05/18 21:00 Blood - Arterial Blood Culture - Preliminary NO GROWTH OBTAINED AFTER 24 HOURS, INCUBATION TO CONTINUE FOR 4 DAYS. 11/05/18 21:00 Blood - Arterial Blood Culture - Preliminary NO GROWTH OBTAINED AFTER 24 HOURS, INCUBATION TO CONTINUE FOR 4 DAYS. -started on aztreonam IV -ID consult noted--follow up -no lactic acidosis -febrile overnight -UA-nitrites + -Previous UTI's grew Ecoli Code(s): A41.9 - SEPSIS, UNSPECIFIED ORGANISM (3) UTI (urinary tract infection) Assessment/Plan: -ID consult noted -see above Code(s): N39.0 - URINARY TRACT INFECTION, SITE NOT SPECIFIED (4) Diabetes 1.5, managed as type 1 Assessment/Plan: -Uncontrolled -Endocrinology on board -Low sodium diabetic diet -A1c at 9.1 -BGM AC HS -ISS -Novolog 70/30 25 U BID AC--hold since npo Code(s): E13.9 - OTHER SPECIFIED DIABETES MELLITUS WITHOUT COMPLICATIONS (5) Elevated troponin I level Assessment/Plan: -cardiology consult -likely 2/2 to demand ischemia -ekg no ischemia -Repeat Trops x 2 q8h -echo done today, results pending Code(s): R74.8 - ABNORMAL LEVELS OF OTHER SERUM ENZYMES (6) HORACE (acute kidney injury) Assessment/Plan: -2/2 to Urosepsis -nephrology consult -dc IVF- -Monitor Cr trend -cxr may need diuretics Code(s): N17.9 - ACUTE KIDNEY FAILURE, UNSPECIFIED (7) Acute exacerbation of CHF (congestive heart failure) Assessment/Plan: cxr follow labs may need lasix Code(s): I50.9 - HEART FAILURE, UNSPECIFIED Qualifiers: Heart failure type: unspecified Qualified Code(s): I50.9 - Heart failure, unspecified (8) Anemia Assessment/Plan: -Chronically anemic -previous guaiac negative -hgb dropping--6-will transfuse -GI consult -monitor trend -Transfuse Code(s): D64.9 - ANEMIA, UNSPECIFIED Qualifiers: Anemia type: unspecified type Qualified Code(s): D64.9 - Anemia, unspecified (9) COPD (chronic obstructive pulmonary disease) Assessment/Plan: nebs pulm Code(s): J44.9 - CHRONIC OBSTRUCTIVE PULMONARY DISEASE, UNSPECIFIED
[2018-11-07] MEDS ORDERED: PANTOPRAZOLE SODIUM 80 MG in SODIUM CHLORIDE 100 ML IVPB SCH ×2 (08:30→18:30)
[2018-11-07] MEDS: SODIUM CHLORIDE 1,000 ML IV SCH (08:40)
--- NOTE | 2018-11-07 08:42 | CONSULT ---
Consultation: REQUESTING PROVIDER: Dr. Payne CONSULT REQUEST: We have been asked to medically evaluate this patient for ICU admission HISTORY OF PRESENT ILLNESS: Patient is a 68 year old female with history of coronary artery disease (s/p stent 04/2017), chronic anemia, diabetes mellitus, hypertension, hyperlipidemia presented with complaint of fevers, chills dysuria, admitted for urosepsis and treated with Levofloxacin, and Aztreonam. This morning rapid response was called when patient found unresponsive sitting on toilet. Patient states she felt nauseous and was vomiting (non bloody, nonbillious). Per GANG INVESTIGATOR note, the event was witnessed, and patient did not experience trauma to her head. Patient's family at bedside state that her anemia began after her cardiac stent placement last year, however workup has been nonrevealing. Last endoscopy (2017) was unrevealing and colonscopy (05/2017) revealed polyps in ascending colon. Patient had been scheduled for capsule endoscopy, however was not able to make her appointment as she was hospitalized. . REVIEW OF SYSTEMS: CONSTITUTIONAL: Absent: fever, chills, diaphoresis, generalized weakness, malaise, loss of appetite, weight change HEENT: Absent: rhinorrhea, nasal congestion, throat pain, throat swelling, difficulty swallowing, mouth swelling, ear pain, eye pain, visual changes CARDIOVASCULAR: Absent: chest pain, syncope, palpitations, irregular heart rate, lightheadedness , peripheral edema RESPIRATORY: Absent: cough, shortness of breath, dyspnea with exertion, orthopnea, wheezing, stridor, hemoptysis GASTROINTESTINAL: Admits: nausea, vomiting, abdominal pain. Absent: diarrhea, constipation, melena , hematochezia GENITOURINARY: Absent: dysuria, frequency, urgency, hesitancy, hematuria, flank pain, genital pain MUSCULOSKELETAL: Absent: myalgia, arthralgia, joint swelling, back pain, neck pain SKIN: Absent: rash, itching, pallor HEMATOLOGIC/IMMUNOLOGIC: Absent: easy bleeding, easy bruising, lymphadenopathy, frequent infections ENDOCRINE: Absent: unexplained weight gain, unexplained weight loss, heat intolerance, cold intolerance NEUROLOGIC: Absent: headache, focal weakness or paresthesias, dizziness, unsteady gait, seizure, mental status changes, bladder or bowel incontinence PSYCHIATRIC: Absent: anxiety, depression, suicidal or homicidal ideation, hallucinations. PHYSICAL EXAMINATION Vital Signs - 24 hr 11/06/18 11/06/18 11/06/18 09:00 12:55 14:00 Temperature 100.2 F H 99.1 F 99.2 F Pulse Rate 84 88 82 Respiratory 20 22 H 22 H Rate Blood Pressure 129/56 L 152/76 158/70 O2 Sat by Pulse Oximetry (%) 11/06/18 11/06/18 11/06/18 18:13 21:00 22:00 Temperature 99.4 F 99.9 F H Pulse Rate 83 88 Respiratory 22 H 20 20 Rate Blood Pressure 142/69 140/68 O2 Sat by Pulse 98 Oximetry (%) 11/07/18 11/07/18 01:54 06:00 Temperature 98.5 F 100.8 F H Pulse Rate 76 95 H Respiratory 20 20 Rate Blood Pressure 145/66 142/72 O2 Sat by Pulse Oximetry (%) GENERAL: Lethargic, arousable to name, oriented to person, place time. In mild distress. HEAD: Normocephalic, atraumatic. EYES: Pupils equal, round and reactive to light, extraocular movements intact, sclera anicteric. EARS, NOSE, THROAT: Oropharynx clear without exudates. Dry mucous membranes. NECK: Supple without lymphadenopathy, or JVD. LUNGS: Breath sounds equal, clear to auscultation bilaterally. No wheezes, and no crackles. No accessory muscle use. HEART: Regular rate and rhythm, normal S1 and S2 without murmur, rub or gallop. ABDOMEN: Obese abdomen. Soft, distended, diffusely tender to palpation x4 quadrants. Normoactive bowel sounds x4 quadrants. No guarding, no rebound tenderness. RECTAL: Patient refuses rectal exam upon my encoutner. MUSCULOSKELETAL: Normal range of motion at all joints. Moves all 4 extremities equally. EXTREMITIES: 2+ radial, dorsalis pedis pulses bilaterally, warm, well-perfused. No peripheral edema. NEUROLOGICAL: Cranial nerves II-XII intact. No gross focal deficits. SKIN: Warm, dry. Laboratory Results - last 24 hr 11/06/18 11/06/18 11/06/18 08:42 08:42 08:42 WBC 7.3 RBC 2.84 L Hgb 7.9 L Hct 24.3 L MCV 85.7 MCH 27.8 MCHC 32.4 RDW 16.7 H Plt Count 187 MPV 10.6 Absolute Neuts (auto) 6.4 Neutrophils % 87.6 H Lymphocytes % 5.9 L D Monocytes % 5.7 Eosinophils % 0.5 Basophils % 0.3 Nucleated RBC % 0 PT with INR 14.00 H INR 1.18 H PTT (Actin FS) 29.0 Sodium 140 Potassium 4.5 Chloride 105 Carbon Dioxide 25 Anion Gap 10 BUN 43.6 H Creatinine 1.5 H Est GFR (CKD-EPI)AfAm 40.77 Est GFR (CKD-EPI)NonAf 35.18 POC Glucometer Random Glucose 229 H Hemoglobin A1c % Calcium 8.6 Phosphorus 3.6 Magnesium 2.1 Total Bilirubin 0.5 AST 12 L ALT 14 Alkaline Phosphatase 73 Creatine Kinase 97 Troponin I 1.23 H* B-Natriuretic Peptide 4783.9 H Total Protein 6.5 Albumin 2.9 L Triglycerides 155 H Cholesterol 144 Total LDL Cholesterol 73 HDL Cholesterol 43 11/06/18 11/06/18 11/06/18 08:42 12:14 16:25 WBC RBC Hgb Hct MCV MCH MCHC RDW Plt Count MPV Absolute Neuts (auto) Neutrophils % Lymphocytes % Monocytes % Eosinophils % Basophils % Nucleated RBC % PT with INR INR PTT (Actin FS) Sodium Potassium Chloride Carbon Dioxide Anion Gap BUN Creatinine Est GFR (CKD-EPI)AfAm Est GFR (CKD-EPI)NonAf POC Glucometer 203 Random Glucose Hemoglobin A1c % 9.1 H Calcium Phosphorus Magnesium Total Bilirubin AST ALT Alkaline Phosphatase Creatine Kinase Troponin I 1.57 H* B-Natriuretic Peptide Total Protein Albumin Triglycerides Cholesterol Total LDL Cholesterol HDL Cholesterol 11/06/18 11/06/18 11/06/18 16:36 21:16 21:35 WBC RBC Hgb Hct MCV MCH MCHC RDW Plt Count MPV Absolute Neuts (auto) Neutrophils % Lymphocytes % Monocytes % Eosinophils % Basophils % Nucleated RBC % PT with INR INR PTT (Actin FS) Sodium Potassium Chloride Carbon Dioxide Anion Gap BUN Creatinine Est GFR (CKD-EPI)AfAm Est GFR (CKD-EPI)NonAf POC Glucometer 183 64 Random Glucose Hemoglobin A1c % Calcium Phosphorus Magnesium Total Bilirubin AST ALT Alkaline Phosphatase Creatine Kinase Troponin I 1.54 H* B-Natriuretic Peptide Total Protein Albumin Triglycerides Cholesterol Total LDL Cholesterol HDL Cholesterol 11/06/18 11/07/18 11/07/18 22:57 00:40 05:40 WBC RBC Hgb Hct MCV MCH MCHC RDW Plt Count MPV Absolute Neuts (auto) Neutrophils % Lymphocytes % Monocytes % Eosinophils % Basophils % Nucleated RBC % PT with INR INR PTT (Actin FS) Sodium Potassium Chloride Carbon Dioxide Anion Gap BUN Creatinine Est GFR (CKD-EPI)AfAm Est GFR (CKD-EPI)NonAf POC Glucometer 99 88 164 Random Glucose Hemoglobin A1c % Calcium Phosphorus Magnesium Total Bilirubin AST ALT Alkaline Phosphatase Creatine Kinase Troponin I B-Natriuretic Peptide Total Protein Albumin Triglycerides Cholesterol Total LDL Cholesterol HDL Cholesterol 11/07/18 11/07/18 11/07/18 06:39 06:50 06:50 WBC 6.3 RBC 2.37 L Hgb 6.6 L* Hct 20.1 L D MCV 84.9 MCH 27.9 MCHC 32.9 RDW 16.9 H Plt Count 162 MPV 9.9 Absolute Neuts (auto) 4.6 Neutrophils % 72.2 Lymphocytes % 17.6 D Monocytes % 8.6 Eosinophils % 1.1 D Basophils % 0.5 Nucleated RBC % 0 PT with INR INR PTT (Actin FS) Sodium 137 Potassium 4.4 Chloride 107 Carbon Dioxide 22 Anion Gap 8 BUN 39.7 H Creatinine 1.5 H Est GFR (CKD-EPI)AfAm 40.77 Est GFR (CKD-EPI)NonAf 35.18 POC Glucometer 179 Random Glucose 211 H Hemoglobin A1c % Calcium 8.2 L Phosphorus Magnesium Total Bilirubin 0.3 AST 32 ALT 32 Alkaline Phosphatase 73 Creatine Kinase Troponin I B-Natriuretic Peptide Total Protein 6.1 L Albumin 2.6 L Triglycerides Cholesterol Total LDL Cholesterol HDL Cholesterol 11/07/18 11/07/18 06:50 06:50 WBC RBC Hgb Hct MCV MCH MCHC RDW Plt Count MPV Absolute Neuts (auto) Neutrophils % Lymphocytes % Monocytes % Eosinophils % Basophils % Nucleated RBC % PT with INR INR PTT (Actin FS) Sodium Potassium Chloride Carbon Dioxide Anion Gap BUN Creatinine Est GFR (CKD-EPI)AfAm Est GFR (CKD-EPI)NonAf POC Glucometer Random Glucose Hemoglobin A1c % Calcium Phosphorus Magnesium 2.2 Total Bilirubin AST ALT Alkaline Phosphatase Creatine Kinase 84 Troponin I 1.02 H* B-Natriuretic Peptide 4532.7 H Cancelled Total Protein Albumin Triglycerides Cholesterol Total LDL Cholesterol HDL Cholesterol Active Medications Generic Name Dose Route Start Last Admin Trade Name Freq PRN Reason Stop Dose Admin Acetaminophen 650 mg 11/06/18 15:33 Tylenol - PO Q6H PRN FEVER Acetaminophen 1,000 mg 11/07/18 08:24 Ofirmev Injection - IVPB Q6H PRN FEVER; IF PO NOT WORK Albuterol/Ipratropium 1 amp 11/06/18 15:33 Duoneb - NEB Q6H PRN SHORTNESS OF BREATH Alprazolam 0.5 mg 11/06/18 12:05 Xanax - PO BID PRN ANXIETY Atorvastatin Calcium 40 mg 11/06/18 22:00 11/06/18 21:14 Lipitor - PO 40 mg HS ALEE Administration Chlorhexidine Gluconate 1 applic 11/07/18 22:00 Hibiclens For Decolonization - TP HS ALEE Ferrous Sulfate 325 mg 11/07/18 10:00 Feosol - PO DAILY ALEE Aztreonam 1 gm/ Dextrose 50 mls @ 100 mls/hr 11/06/18 12:15 11/07/18 02:30 IVPB 100 mls/hr Q8H-IV ALEE Administration Sodium Chloride 1,000 mls @ 75 mls/hr 11/06/18 12:15 11/06/18 12:21 Normal Saline - IV 75 mls/hr ASDIR ALEE Administration Levofloxacin 500 mg in 100 mls @ 100 mls/hr 11/07/18 10:00 Levaquin 500 Mg Premixed Ivpb - IVPB DAILY [facility] Protocol Pantoprazole Sodium 80 mg/ 100 mls @ 10 mls/hr 11/07/18 08:30 Sodium Chloride IVPB Q10H ALEE 8 MG/HR Insulin Aspart 1 vial 11/07/18 07:00 11/07/18 06:05 Novolog Vial Sliding Scale - SQ Not Given ACHS [facility] Protocol Metoprolol Succinate 50 mg 11/07/18 10:00 Toprol Xl - PO DAILY ALEE Mupirocin 1 applic 11/07/18 10:00 Bactroban Ointment (For Decolonization) - NS 11/12/18 09:59 BID [facility] Non-Formulary Medication 145 mcg 11/07/18 10:00 Linaclotide [Linzess] PO DAILY [facility] Ondansetron HCl 4 mg 11/07/18 08:21 Zofran Injection IVPUSH Q6H PRN NAUSEA ASSESSMENT/PLAN: Syncopal episode Sepsis Normocytic Anemia Troponinemia Coronary artery disease s/p stent (04/2017) Diabetes mellitus Asthma Sleep apnea Hypertension Hyperlipidemia Neurologic -Syncopal episode today, however per GANG INVESTIGATOR note, the event was witnessed and no trauma to head. Likely vasovagal. -Patient lethargic, however arousable to name and oriented to person, place, time Cardiac -Troponin peaked at 1.57, likely in setting of demand ischemia (Type II MT). Repeat troponin this morning at time of rapid response was 1.02. -Aspirin held by primary team in setting of anemia. Will discuss reinstating with Cardiology -Transthorasic ECHO reveals EF 60%. LV and RV size, function normal -Metoprolol 50mg PO daily -Cardiac monitoring while in ICU -Cardiology recommendations (Dr. Trevino) appreciated Pulmonary -Currently, patient saturating well on nasal canula 2L -Maintain oxygen saturation greater than 90% Infectious disease -Sepsis likely secondary to UTI (WBC count resolvign to 6.9, patient febrile to 100.8F overnight) -UA reveals turbid yellow urine, with protein, glucose, blood, nitirites, leukocyte esterase -Aztreonam 1 gram IV Q8 hours (day #1) -Levofloxacin 500mg IV daily (day #2) -Follow blood, urine cultures (growing gram negative rods) -ID recommendations (Dr. Mata) appreciated. Gastrointestinal -Patient endorses nausea, nonbloody, nonbillious vomiting -Per nursing staff, no hematemesis, hematochezia, melenic bowel movements. -Patient refuses rectal exam; follow stool for occult blood. -Protonix drip initiated by primary team due to concern for GI bleeding -Zofran -GI recommendations (Dr. Kennedy) appreciated. Will obtain CT abdomen, pelvis to exclude any retroperitoneal bleeding, hematoma. Hematologic -Normocytic anemia likely secondary to occult GI bleeding -Iron studies added on to this morning labs (prior to PRBC transfusion) -Patient to be transfused 1 unit PRBC. Goal Hb 8 -Repeat CBC 1 hour after transfusion -Hematology recommendations (Dr. Graham) appreciated. Endocrine -Insulin sliding scale ACHS -Fingerstick blood glucose monitoring ACHS Disposition: We will continue to follow the patient. Thank you for this consultative opportunity. Visit type - Emergency Visit Emergency Visit: Yes ED Registration Date: 11/05/18 Care time: The patient presented to the Emergency Department on the above date and was hospitalized for further evaluation of their emergent condition. - New Patient This patient is new to me today: Yes Date on this admission: 11/07/18 - Critical Care Critical Care patient: Yes Total Critical Care Time (in minutes): 36 Critical Care Statement: The care of this patient involved high complexity decision making to prevent further life threatening deterioration of the patient 's condition and/or to evaluate & treat vital organ system(s) failure or risk of failure. ATTENDING PHYSICIAN STATEMENT I saw and evaluated the patient. I reviewed the resident's note and discussed the case with the resident. I agree with the resident's findings and plan as documented. SUBJECTIVE: OBJECTIVE: ASSESSMENT AND PLAN:
[2018-11-07] MEDS ORDERED: ALBUTEROL SO4 2.5/IPRATROPIUM 0.5 INH SOL 3 ML VIAL.NEB. NEB PRN (08:58)
[2018-11-07] MEDS: ACETAMINOPHEN 1000 MG/100 ML VIAL (NON FORMULARY) IVPB PRN (09:45)
[2018-11-07] MEDS ORDERED: ASPIRIN COATED 81 MG TABLET.EC PO SCH ×2 (10:00)
[2018-11-07] MEDS ORDERED: PANTOPRAZOLE 40 MG TABLET (FP) PO SCH (10:00)
[2018-11-07] MEDS ORDERED: metoPROLOL SUCCINATE 25 MG TAB.SR.24H (FP) PO SCH (10:00)
[2018-11-07] MEDS ORDERED: FERROUS SO4 325 MG TABLET (FP) PO SCH (10:00)
[2018-11-07] MEDS ORDERED: PATIENT'S OWN MEDICATION (NON-FORMULARY) (Linaclotide [Linzess] 145 MCG) PO SCH (10:00)
--- NOTE | 2018-11-07 10:49 | EKG ---
Test Reason : Blood Pressure : / mmHG Vent. Rate : 089 BPM Atrial Rate : 089 BPM P-R Int : 152 ms QRS Dur : 108 ms QT Int : 370 ms P-R-T Axes : -07 095 -51 degrees QTc Int : 450 ms NORMAL SINUS RHYTHM RIGHTWARD AXIS INFERIOR INFARCT , AGE UNDETERMINED ABNORMAL ECG WHEN COMPARED WITH ECG OF 06-NOV-2018 12:13, QRS AXIS SHIFTED RIGHT INFERIOR INFARCT IS NOW PRESENT T WAVE INVERSION NOW EVIDENT IN INFERIOR LEADS Confirmed by ANGELY PIKE, NEELAM ([id number]) on 11/07/2018 10:49:14 AM Referred By: HOSPITALIST Confirmed By:NEELAM AU MD
--- NOTE | 2018-11-07 10:52 | PN ---
Progress Note (short form) - Note Progress Note: transferred to ICU this am became unresponsive while on the toilet this am witnessed, no head trauma Vital Signs Period Temp Pulse Resp BP Sys/Lee Pulse Ox Last 24 Hr 98.5 F-100.8 F 73-95 20-24 138-158/55-76 98-100 cor-rrr lungs decreased bs at bases abd soft,nt ext no edema CBC, BMP 11/07/18 06:50 11/07/18 06:50 Microbiology 11/05/18 12:55 Urine - Urine Clean Catch Urine Culture - Preliminary Gram Negative Jcaques 11/05/18 21:00 Blood - Arterial Blood Culture - Preliminary NO GROWTH OBTAINED AFTER 24 HOURS, INCUBATION TO CONTINUE FOR 4 DAYS. 11/05/18 21:00 Blood - Arterial Blood Culture - Preliminary NO GROWTH OBTAINED AFTER 24 HOURS, INCUBATION TO CONTINUE FOR 4 DAYS. a/p syncope- most likely secondary to anemia for transfusion transferred to ICU gi/heme f/u fevers/chills- suspect recurrent UTI continue levaquin, add azactam check bladder scan to evaluate for urinary retention repeat blood cultures with low grade fever horace-renal f/u, unchanged elevated troponins/cad- per cardiology penicillin allergy poorly controlled DM- hgbAIC 9 Problem List - Problems (1) Fever Code(s): R50.9 - FEVER, UNSPECIFIED (2) UTI (urinary tract infection) Code(s): N39.0 - URINARY TRACT INFECTION, SITE NOT SPECIFIED (3) Elevated troponin I level Code(s): R74.8 - ABNORMAL LEVELS OF OTHER SERUM ENZYMES (4) HORACE (acute kidney injury) Code(s): N17.9 - ACUTE KIDNEY FAILURE, UNSPECIFIED (5) DM2 (diabetes mellitus, type 2) Code(s): E11.9 - TYPE 2 DIABETES MELLITUS WITHOUT COMPLICATIONS (6) Penicillin allergy Code(s): Z88.0 - ALLERGY STATUS TO PENICILLIN (7) Anemia Code(s): D64.9 - ANEMIA, UNSPECIFIED Qualifiers: Anemia type: unspecified type Qualified Code(s): D64.9 - Anemia, unspecified
--- NOTE | 2018-11-07 11:04 | CON.GI ---
Consult Consult Specialty:: Gastroenterology Reason for Consultation:: GI bleed, anemia - History of Present Illness Chief Complaint: Weakness, fever History of Present Illness: 68yo female h/o CAD s/p PCI (04/2017), CHF, DM, HTN, presents with dizziness and nausea asked to evaluate for anemia and possible GI bleed. Pts daughter present at bedside. Pt reporting increased weakness and dizziness with associated nausea and fever prompting hospitalization. Found to be severely anemic therefore GI consulted. Pt found to be unresponsive this am therefore transferred to MICU thought syncopal episode in setting of anemia. Now alert and awake. Reports mild nausea, denies vomiting or hematemesis. Moves bowels every 2-3 days at baseline, takes senna when needed, denies overt bleeding. No bm since hospitalization. Pending prbc transfusion this am. Pt known to Dr. Alvarado, last seen in 09/2018 with similar complaints. Pt underwent EGD and colonoscopy on 06/23/17 revealing diminutive ascending colon polyps otherwise no obvious etiology for anemia. Pt was advised capsule endoscopy and was referred to [facility] r/o small bowel bowel source. Information was provided to pt however she did not follow since that time. Also did not follow up with hematology. Now states she had appt in [place] yesterday for capsule endoscopy however missed it due to current hospitalization. - History Source History Provided By: Patient, Family Member (pts daughter), Medical Record - Past Medical History Cardio/Vascular: Yes: CAD (S/P STENTING), HTN, Hyperlipdemia Pulmonary: Yes: Asthma, Bronchitis, Pneumonia, Sleep Apnea Gastrointestinal: Yes: GERD Renal/: Yes: Renal Inusuff ...: No Musculoskeletal: Yes: Osteoarthritis Endocrine: Yes: Diabetes Mellitus - Alcohol/Substance Use Hx Alcohol Use: No History of Substance Use: reports: None - Smoking History Smoking history: Never smoked Have you smoked in the past 12 months: No Aproximately how many cigarettes per day: 0 - Social History Usual Living Arrangement: With Spouse ADL: Family Assistance Occupation: [employer] History of Recent Travel: No Home Medications - Allergies Allergies/Adverse Reactions: Allergies Allergy/AdvReac Type Severity Reaction Status Date / Time Penicillins Allergy Difficulty Verified 11/05/18 11:31 Breathing - Home Medications Home Medications: Ambulatory Orders Atorvastatin Ca [Lipitor] 80 mg PO HS 08/09/18 Ferrous Sulfate 325 mg PO DAILY 08/09/18 Linaclotide [Linzess] 145 mcg PO DAILY 08/09/18 Furosemide [Lasix -] 40 mg PO DAILY #30 tablet MDD 1 08/10/18 Pantoprazole Sodium [Protonix -] 40 mg PO DAILY #30 tablet.ec MDD 1 08/10/18 Aspirin Coated [Ecotrin -] 81 mg PO DAILY tablet.ec 08/12/18 Insulin Lispro Protamin/Lispro [Humalog Mix 50-50 Kwikpen] 25 units SQ BID 10/08 Losartan Potassium 1 tab PO DAILY 10/08/18 Metoprolol Succinate 1 tab PO DAILY 10/08/18 Ranitidine [Zantac -] 1 tab PO DAILY 10/08/18 Nystatin/Triamcinolone Top Cr [Mycolog II -] 2 applic TP BID #1 tube 10/12/18 Family Disease History - Family Disease History Family Disease History: Diabetes: Mother (: DM II complications), Sister (6 , 1 of old age), Other: Father (: CVA), Mother, Brother (3, 2 from "Old age", 1 from Lung Ca), Sister, Son (5, healthy), Daughter (1, healthy) Review of Systems - Review of Systems Constitutional: reports: Fever, Weakness Cardiovascular: reports: No Symptoms Respiratory: reports: No Symptoms Gastrointestinal: reports: Nausea Physical Exam-GI Vital Signs: Vital Signs Temperature 100.8 F H 11/07/18 06:00 Pulse Rate 73 11/07/18 09:00 Respiratory Rate 24 H 11/07/18 09:00 Blood Pressure 138/55 L 11/07/18 09:00 O2 Sat by Pulse Oximetry (%) 100 11/07/18 09:00 Constitutional: Yes: Well Nourished, No Distress, Calm, Other (Alert, awake, fatigued) Cardiovascular: Yes: WNL, Regular Rate and Rhythm Respiratory: Yes: WNL, Regular, CTA Bilaterally Gastrointestinal Inspection: Yes: WNL ...Auscultate: Yes: Other (Abd soft, nt, nd Refused rectal exam) ...Rectal Exam: Yes: Other (Pt refused) Labs: CBC, BMP 11/07/18 06:50 11/07/18 06:50 INR, PTT INR 1.18 (0.83-1.09) H 11/06/18 08:42 Problem List - Problems (1) Anemia Assessment/Plan: 68yo female h/o CAD s/p PCI (04/2017), CHF, DM, HTN, presents with dizziness and nausea asked to evaluate for anemia and possible GI bleed being treated for urosepsis. Acute on chronic normocytic anemia noted, likely multifactorial though with component of iron deficiency. No obvious explanation on EGD and colonoscopy in 05/2017. Pt did not follow up for outpatient capsule endoscopy. No overt bleeding. -No urgent indication for endoscopy currently in absence of overt bleeding and stable hemodynamics and pt also undergoing infectious workup. Though would still recommend pt pursue outpatient capsule endoscopy r/o small bowel lesion. -Continue to monitor Hb and for further bleeding -Transfuse as needed to maintain Hb> 7 -PPI daily -Continue to hold antiplts for now if no cardiac contraindication -Agree with CT abd/pelvis r/o alternate source of bleed including retroperitoneal though low suspicion -Repeat iron studies/ferritin on pre-transfusion labs if possible -Hematology follow up -If pt develops overt bleeding with acute drop in Hb not responding to prbc transfusion in the interim or hemodynamic instability please notify GI for possible more urgent intervention. Discussed with MICU resident. Code(s): D64.9 - ANEMIA, UNSPECIFIED Qualifiers: Anemia type: unspecified type Qualified Code(s): D64.9 - Anemia, unspecified
--- NOTE | 2018-11-07 11:08 | PN ---
Progress Note, Physician History of Present Illness: Pt seen and examined at bedside. She complains of malaise. She is awake and alert. She is being transferred to the ICU. - Current Medication List Current Medications: Active Medications Acetaminophen (Ofirmev Injection -) 1,000 mg IVPB Q6H PRN PRN Reason: FEVER; IF PO NOT WORK Last Admin: 11/07/18 09:45 Dose: 1,000 mg Acetaminophen (Tylenol -) 650 mg PO Q6H PRN PRN Reason: FEVER Albuterol/Ipratropium (Duoneb -) 1 amp NEB Q6H PRN PRN Reason: SHORTNESS OF BREATH Alprazolam (Xanax -) 0.5 mg PO BID PRN PRN Reason: ANXIETY Atorvastatin Calcium (Lipitor -) 40 mg PO HS ALEE Chlorhexidine Gluconate (Hibiclens For Decolonization -) 1 applic TP HS ALEE Ferrous Sulfate (Feosol -) 325 mg PO DAILY ALEE Furosemide (Lasix Injection -) 40 mg IVPUSH ONCE ONE Stop: 11/07/18 09:16 Aztreonam 1 gm/ Dextrose 50 mls @ 100 mls/hr IVPB Q8H-IV ALEE Levofloxacin (Levaquin 500 Mg Premixed Ivpb -) 500 mg in 100 mls @ 100 mls/hr IVPB DAILY ALEE; Protocol Pantoprazole Sodium 80 mg/ (Sodium Chloride) 100 mls @ 10 mls/hr IVPB Q10H ALEE Sodium Chloride (Normal Saline -) 1,000 mls @ 75 mls/hr IV ASDIR ALEE Last Admin: 11/07/18 08:40 Dose: Not Given Insulin Aspart (Novolog Vial Sliding Scale -) 1 vial SQ ACHS ALEE; Protocol Metoprolol Succinate (Toprol Xl -) 50 mg PO DAILY ALEE Mupirocin (Bactroban Ointment (For Decolonization) -) 1 applic NS BID [facility] Stop: 11/12/18 10:29 Non-Formulary Medication (Linaclotide [Linzess]) 145 mcg PO DAILY ALEE Ondansetron HCl (Zofran Injection) 4 mg IVPUSH Q6H PRN PRN Reason: NAUSEA - Objective Vital Signs: Vital Signs Temperature 100.8 F H 11/07/18 06:00 Pulse Rate 73 11/07/18 09:00 Respiratory Rate 24 H 11/07/18 09:00 Blood Pressure 138/55 L 11/07/18 09:00 O2 Sat by Pulse Oximetry (%) 100 11/07/18 09:00 Constitutional: Yes: Calm Eyes: Yes: Conjunctiva Clear HENT: Yes: Atraumatic Neck: Yes: Supple Cardiovascular: Yes: S2 Respiratory: Yes: On Nasal O2, Wheezes Gastrointestinal: Yes: Soft, Abdomen, Obese Genitourinary: Yes: WNL Musculoskeletal: Yes: WNL Edema: Yes Edema: LLE: 1+, RLE: 1+ Neurological: Yes: Oriented Psychiatric: Yes: Oriented Labs: CBC, BMP 11/07/18 06:50 11/07/18 06:50 INR, PTT INR 1.18 (0.83-1.09) H 11/06/18 08:42 Problem List - Problems (1) Fever Code(s): R50.9 - FEVER, UNSPECIFIED (2) Sepsis Code(s): A41.9 - SEPSIS, UNSPECIFIED ORGANISM Assessment/Plan Current Medications Generic Name Dose Route Start Last Admin Trade Name Freq PRN Reason Stop Dose Admin Acetaminophen 1,000 mg 11/07/18 08:24 11/07/18 09:45 Ofirmev Injection - IVPB 1,000 mg Q6H PRN Administration FEVER; IF PO NOT WORK Acetaminophen 650 mg 11/07/18 08:58 Tylenol - PO Q6H PRN FEVER Albuterol/Ipratropium 1 amp 11/07/18 08:58 Duoneb - NEB Q6H PRN SHORTNESS OF BREATH Alprazolam 0.5 mg 11/07/18 08:58 Xanax - PO BID PRN ANXIETY Atorvastatin Calcium 40 mg 11/07/18 22:00 Lipitor - PO HS ALEE Chlorhexidine Gluconate 1 applic 11/07/18 22:00 Hibiclens For Decolonization - TP HS ALEE Ferrous Sulfate 325 mg 11/07/18 10:00 Feosol - PO DAILY ALEE Furosemide 40 mg 11/07/18 09:15 Lasix Injection - IVPUSH 11/07/18 09:16 ONCE ONE Aztreonam 1 gm/ Dextrose 50 mls @ 100 mls/hr 11/07/18 10:00 IVPB Q8H-IV ALEE Levofloxacin 500 mg in 100 mls @ 100 mls/hr 11/07/18 10:00 Levaquin 500 Mg Premixed Ivpb - IVPB DAILY [facility] Protocol Pantoprazole Sodium 80 mg/ 100 mls @ 10 mls/hr 11/07/18 18:30 Sodium Chloride IVPB Q10H ALEE 8 MG/HR Sodium Chloride 1,000 mls @ 75 mls/hr 11/07/18 08:58 11/07/18 08:40 Normal Saline - IV Not Given ASDIR [facility] Insulin Aspart 1 vial 11/07/18 11:00 Novolog Vial Sliding Scale - SQ ACHS [facility] Protocol Metoprolol Succinate 50 mg 11/07/18 10:00 Toprol Xl - PO DAILY [facility] Mupirocin 1 applic 11/07/18 10:30 Bactroban Ointment (For Decolonization) - NS 11/12/18 10:29 BID [facility] Non-Formulary Medication 145 mcg 11/07/18 10:00 Linaclotide [Linzess] PO DAILY [facility] Ondansetron HCl 4 mg 11/07/18 08:58 Zofran Injection IVPUSH Q6H PRN NAUSEA Impression 1. CKD 2. proteinuria 3. elevated kappa chains with abnormal ratio 4. symptomatic anemia 5. DM 6. obesity 7. cad 8. chf 9. hx of positive mallory Plan - agree with ICU transfer - monitor renal function - abx per ID - monitor renal function - follow cultures - light chains elevated on last visit, will need follow up once stable, this was discussed with family - pt was supposed to get a capsle endoscopy in [facility] however became ill and came to the hospital
[2018-11-07] MEDS: FERROUS SO4 325 MG TABLET (FP) PO SCH ×2 (11:13→11:52)
[2018-11-07] MEDS: MUPIROCIN 2% TOPICAL OINTMENT FOR DECOLONIZATION NS SCH ×2 (11:14→22:00)
[2018-11-07] MEDS: metoPROLOL SUCCINATE 25 MG TAB.SR.24H (FP) PO SCH ×2 (11:14→11:47)
--- NOTE | 2018-11-07 12:36 | PN ---
Teaching Attending Note Name of Resident: Edvin Peterson ATTENDING PHYSICIAN STATEMENT I saw and evaluated the patient. I reviewed the resident's note and discussed the case with the resident. I agree with the resident's findings and plan as documented. SUBJECTIVE: 68 F, coronary artery disease (s/p stent 04/2017), chronic anemia, diabetes mellitus, hypertension, hyperlipidemia, morbid obesity, and likely OSAS. Admitted via the ER due to fevers, chills and dysuria. Given Levofloxacin and Aztreonam. Called to assess after a ORDER PROCESSOR this AM after she was found unresponsive on the toilet. Patient also developed nausea and vomiting (non bloody, nonbillious). No seizure activity. GENERAL: Awake and responsive, exam ins non-focal. HEAD: Normocephalic, atraumatic. EYES: Pupils equal, round and reactive to light, extraocular movements intact, sclera anicteric. EARS, NOSE, THROAT: Oropharynx clear without exudates. Dry mucous membranes. NECK: Supple without lymphadenopathy, or JVD. LUNGS: Breath sounds equal, clear to auscultation bilaterally. No wheezes, and no crackles. No accessory muscle use. HEART: Regular rate and rhythm, normal S1 and S2 without murmur, rub or gallop. ABDOMEN: Obese abdomen. Soft, distended, diffusely tender to palpation x4 quadrants. Normoactive bowel sounds x4 quadrants. No guarding, no rebound tenderness. RECTAL: Patient refuses. MUSCULOSKELETAL: Normal range of motion at all joints. Moves all 4 extremities equally. EXTREMITIES: 2+ radial, dorsalis pedis pulses bilaterally, warm, well-perfused. No peripheral edema. NEUROLOGICAL: Awake and alert, non-focal exam. SKIN: Warm, dry. Laboratory Results - last 24 hr 11/06/18 11/06/18 11/06/18 08:42 08:42 08:42 WBC 7.3 RBC 2.84 L Hgb 7.9 L Hct 24.3 L MCV 85.7 MCH 27.8 MCHC 32.4 RDW 16.7 H Plt Count 187 MPV 10.6 Absolute Neuts (auto) 6.4 Neutrophils % 87.6 H Lymphocytes % 5.9 L D Monocytes % 5.7 Eosinophils % 0.5 Basophils % 0.3 Nucleated RBC % 0 PT with INR 14.00 H INR 1.18 H PTT (Actin FS) 29.0 Sodium 140 Potassium 4.5 Chloride 105 Carbon Dioxide 25 Anion Gap 10 BUN 43.6 H Creatinine 1.5 H Est GFR (CKD-EPI)AfAm 40.77 Est GFR (CKD-EPI)NonAf 35.18 POC Glucometer Random Glucose 229 H Hemoglobin A1c % Calcium 8.6 Phosphorus 3.6 Magnesium 2.1 Total Bilirubin 0.5 AST 12 L ALT 14 Alkaline Phosphatase 73 Creatine Kinase 97 Troponin I 1.23 H* B-Natriuretic Peptide 4783.9 H Total Protein 6.5 Albumin 2.9 L Triglycerides 155 H Cholesterol 144 Total LDL Cholesterol 73 HDL Cholesterol 43 11/06/18 11/06/18 11/06/18 08:42 12:14 16:25 WBC RBC Hgb Hct MCV MCH MCHC RDW Plt Count MPV Absolute Neuts (auto) Neutrophils % Lymphocytes % Monocytes % Eosinophils % Basophils % Nucleated RBC % PT with INR INR PTT (Actin FS) Sodium Potassium Chloride Carbon Dioxide Anion Gap BUN Creatinine Est GFR (CKD-EPI)AfAm Est GFR (CKD-EPI)NonAf POC Glucometer 203 Random Glucose Hemoglobin A1c % 9.1 H Calcium Phosphorus Magnesium Total Bilirubin AST ALT Alkaline Phosphatase Creatine Kinase Troponin I 1.57 H* B-Natriuretic Peptide Total Protein Albumin Triglycerides Cholesterol Total LDL Cholesterol HDL Cholesterol 11/06/18 11/06/18 11/06/18 16:36 21:16 21:35 WBC RBC Hgb Hct MCV MCH MCHC RDW Plt Count MPV Absolute Neuts (auto) Neutrophils % Lymphocytes % Monocytes % Eosinophils % Basophils % Nucleated RBC % PT with INR INR PTT (Actin FS) Sodium Potassium Chloride Carbon Dioxide Anion Gap BUN Creatinine Est GFR (CKD-EPI)AfAm Est GFR (CKD-EPI)NonAf POC Glucometer 183 64 Random Glucose Hemoglobin A1c % Calcium Phosphorus Magnesium Total Bilirubin AST ALT Alkaline Phosphatase Creatine Kinase Troponin I 1.54 H* B-Natriuretic Peptide Total Protein Albumin Triglycerides Cholesterol Total LDL Cholesterol HDL Cholesterol 11/06/18 11/07/18 11/07/18 22:57 00:40 05:40 WBC RBC Hgb Hct MCV MCH MCHC RDW Plt Count MPV Absolute Neuts (auto) Neutrophils % Lymphocytes % Monocytes % Eosinophils % Basophils % Nucleated RBC % PT with INR INR PTT (Actin FS) Sodium Potassium Chloride Carbon Dioxide Anion Gap BUN Creatinine Est GFR (CKD-EPI)AfAm Est GFR (CKD-EPI)NonAf POC Glucometer 99 88 164 Random Glucose Hemoglobin A1c % Calcium Phosphorus Magnesium Total Bilirubin AST ALT Alkaline Phosphatase Creatine Kinase Troponin I B-Natriuretic Peptide Total Protein Albumin Triglycerides Cholesterol Total LDL Cholesterol HDL Cholesterol 11/07/18 11/07/18 11/07/18 06:39 06:50 06:50 WBC 6.3 RBC 2.37 L Hgb 6.6 L* Hct 20.1 L D MCV 84.9 MCH 27.9 MCHC 32.9 RDW 16.9 H Plt Count 162 MPV 9.9 Absolute Neuts (auto) 4.6 Neutrophils % 72.2 Lymphocytes % 17.6 D Monocytes % 8.6 Eosinophils % 1.1 D Basophils % 0.5 Nucleated RBC % 0 PT with INR INR PTT (Actin FS) Sodium 137 Potassium 4.4 Chloride 107 Carbon Dioxide 22 Anion Gap 8 BUN 39.7 H Creatinine 1.5 H Est GFR (CKD-EPI)AfAm 40.77 Est GFR (CKD-EPI)NonAf 35.18 POC Glucometer 179 Random Glucose 211 H Hemoglobin A1c % Calcium 8.2 L Phosphorus Magnesium Total Bilirubin 0.3 AST 32 ALT 32 Alkaline Phosphatase 73 Creatine Kinase Troponin I B-Natriuretic Peptide Total Protein 6.1 L Albumin 2.6 L Triglycerides Cholesterol Total LDL Cholesterol HDL Cholesterol 11/07/18 11/07/18 06:50 06:50 WBC RBC Hgb Hct MCV MCH MCHC RDW Plt Count MPV Absolute Neuts (auto) Neutrophils % Lymphocytes % Monocytes % Eosinophils % Basophils % Nucleated RBC % PT with INR INR PTT (Actin FS) Sodium Potassium Chloride Carbon Dioxide Anion Gap BUN Creatinine Est GFR (CKD-EPI)AfAm Est GFR (CKD-EPI)NonAf POC Glucometer Random Glucose Hemoglobin A1c % Calcium Phosphorus Magnesium 2.2 Total Bilirubin AST ALT Alkaline Phosphatase Creatine Kinase 84 Troponin I 1.02 H* B-Natriuretic Peptide 4532.7 H Cancelled Total Protein Albumin Triglycerides Cholesterol Total LDL Cholesterol HDL Cholesterol ASSESSMENT/PLAN: Suspected vasovagal syncopal episode R/O Sepsis Normocytic Anemia Troponinemia Coronary artery disease s/p stent (04/2017) Diabetes mellitus Asthma Sleep apnea Hypertension Hyperlipidemia Neurochecks Aspiration precautions O2 as needed Glycemic control Continue cardiac meds ABX coverage per ID Strict I & O No need to repeat Head CT at this time as the patient is awake and alert and her exam is non-focal Normal transfusion thresholds: Hgb 8 GI follow up Will need formal reassessment of OSAS after discharge Requires ICU monitoring Dr Amaro Critical care time spent in reviewing chart, evaluating patient and formulating plan - 36 minutes.
[2018-11-07] MEDS: INSULIN SLIDING SCALE (NOVOLOG) 1 VIAL SQ SCH ×3 (14:27→22:19)
--- NOTE | 2018-11-07 15:09 | PN ---
Progress Note, Physician History of Present Illness: seen and examined today in nad. daughter at bedside. episode of syncope early this am while in the bathroom sitting on the toilet. pt does not recall the events. states she thinks she felt mild lightheadedness prior to the vent. tele reviewed from time of syncope, no sig arrhythmias that would cause syncope , sinus nika with no pauses, short psvt - Current Medication List Current Medications: Active Medications Acetaminophen (Ofirmev Injection -) 1,000 mg IVPB Q6H PRN PRN Reason: FEVER; IF PO NOT WORK Last Admin: 11/07/18 09:45 Dose: 1,000 mg Acetaminophen (Tylenol -) 650 mg PO Q6H PRN PRN Reason: FEVER Albuterol/Ipratropium (Duoneb -) 1 amp NEB Q6H PRN PRN Reason: SHORTNESS OF BREATH Alprazolam (Xanax -) 0.5 mg PO BID PRN PRN Reason: ANXIETY Atorvastatin Calcium (Lipitor -) 40 mg PO HS ALEE Chlorhexidine Gluconate (Hibiclens For Decolonization -) 1 applic TP HS ALEE Ferrous Sulfate (Feosol -) 325 mg PO DAILY ALEE Last Admin: 11/07/18 11:52 Dose: Not Given Furosemide (Lasix Injection -) 40 mg IVPUSH ONCE ONE Stop: 11/07/18 09:16 Aztreonam 1 gm/ Dextrose 50 mls @ 100 mls/hr IVPB Q8H-IV ALEE Last Admin: 11/07/18 11:13 Dose: 100 mls/hr Levofloxacin (Levaquin 500 Mg Premixed Ivpb -) 500 mg in 100 mls @ 100 mls/hr IVPB DAILY ALEE; Protocol Last Admin: 11/07/18 11:14 Dose: 100 mls/hr Pantoprazole Sodium 80 mg/ (Sodium Chloride) 100 mls @ 10 mls/hr IVPB Q10H ALEE Sodium Chloride (Normal Saline -) 1,000 mls @ 75 mls/hr IV ASDIR ALEE Last Admin: 11/07/18 08:40 Dose: Not Given Insulin Aspart (Novolog Vial Sliding Scale -) 1 vial SQ ACHS ALEE; Protocol Last Admin: 11/07/18 14:27 Dose: Not Given Metoprolol Succinate (Toprol Xl -) 50 mg PO DAILY ALEE Last Admin: 11/07/18 11:47 Dose: Not Given Mupirocin (Bactroban Ointment (For Decolonization) -) 1 applic NS BID [facility] Stop: 11/12/18 10:29 Last Admin: 11/07/18 11:14 Dose: 1 applic Non-Formulary Medication (Linaclotide [Linzess]) 145 mcg PO DAILY [facility] Ondansetron HCl (Zofran Injection) 4 mg IVPUSH Q6H PRN PRN Reason: NAUSEA - Objective Vital Signs: Vital Signs Temperature 99 F 11/07/18 13:00 Pulse Rate 66 11/07/18 13:00 Respiratory Rate 12 11/07/18 13:00 Blood Pressure 143/68 11/07/18 13:00 O2 Sat by Pulse Oximetry (%) 100 11/07/18 09:00 Constitutional: Yes: No Distress, Calm Eyes: Yes: Conjunctiva Clear, EOM Intact, PERRL HENT: Yes: Atraumatic, Normocephalic Neck: Yes: Supple, Trachea Midline Cardiovascular: Yes: Regular Rate and Rhythm, S1, S2. No: Bradycardia, Tachycardia, Pulse Irregular, Bruit, JVD, Gallop, Murmur, Rub, S3, S4, Varicosities Respiratory: Yes: Regular, CTA Bilaterally. No: Rales, Rhonchi, Wheezes Gastrointestinal: Yes: Normal Bowel Sounds, Soft. No: Distention, Tenderness Musculoskeletal: Yes: WNL Extremities: Yes: WNL Edema: No Peripheral Pulses WNL: Yes Peripheral Pulses: Left Doralis Pedis: 2+, Right Dorsalis Pedis: 2+ Neurological: Yes: Alert, Oriented Psychiatric: Yes: Alert, Oriented Labs: CBC, BMP 11/07/18 06:50 11/07/18 06:50 INR, PTT INR 1.18 (0.83-1.09) H 11/06/18 08:42 - ....Imaging Chest X-ray: Report Reviewed, Image Reviewed EKG: Report Reviewed, Image Reviewed Other: Report Reviewed, Image Reviewed (tele-nsr, short period of sinus nika, short psvt episode,) Assessment/Plan 68 year-old woman with a PMHx of HTN, DM-II, HLD, CAD, s/p mid LAD PCI with RADU on 05/01/2017 at [facility] with no other sig CAD, anemia (requiring recent blood transfusions x 3 in the past), no obvious source of bleeding, TERENCE, asthma, chronic diastolic CHF, prior admission 07/2018 with mild troponin elevation in setting of severe anemia felt to be secondary to demand ischemia, now admitted with fevers, chills, dysuria, being treated for presumed urosepsis. Found to be febrile, tachycardic, evidence of FALGUNI c/w urosepsis and anemic. Troponin level was sent in the ER which was wnl. A 2nd set of cardiac enzymes was sent this am which showed normal CK level but troponin increased to 1.23. she denies any chest pain currently or since coming to the hospital. she does have a history of chronic mild intermittent chest pain. no sob currently. no palpitations, pnd, orthopnea. Elevated troponin-with normal CK level, no chest pain or sob, known CAD with PCI with RADU mLAD 05/01/17 no other siginificant residual CAD -in setting of sepsis, FALGUNI, anemia, likely secondary to demand ischemia Type II VA, not c/w ACS or Type I VA -repeat echo 11/06/18 showed normal LV/RV size and function, mild to mod valvular abnl -troponin trended down and CK level never trended up -can stop checking cardiac enzymes -pt has worsening anemia -ASA was held due to anemia -cont metoprolol and lipitor -hold off on full dose heparin and plavix given anemia and given not ACS -treat sepsis, anemia, FALGUNI as per primary team Chronic diastolic CHF: in the past felt likely due to severe anemia, high output in the setting LV diastolic dysfunction. -can use Lasix prn Syncope -likely vasovagal event in setting of anemia -no sig arrhythmias seen on tele at the time of the event. sinus bradycardia supports vasovagal event -cont tele monitoring in icu
--- NOTE | 2018-11-07 16:05 | EKG ---
Test Reason : Blood Pressure : / mmHG Vent. Rate : 067 BPM Atrial Rate : 067 BPM P-R Int : 168 ms QRS Dur : 112 ms QT Int : 442 ms P-R-T Axes : 067 -33 087 degrees QTc Int : 467 ms NORMAL SINUS RHYTHM LEFT AXIS DEVIATION INCOMPLETE LEFT BUNDLE BRANCH BLOCK ABNORMAL ECG WHEN COMPARED WITH ECG OF 07-NOV-2018 06:50, INCOMPLETE LEFT BUNDLE BRANCH BLOCK IS NOW PRESENT CRITERIA FOR INFERIOR INFARCT ARE NO LONGER PRESENT Confirmed by ANGELY PIKE, NEELAM ([id number]) on 11/07/2018 4:04:49 PM Referred By: LOGAN ROQUE Confirmed By:NEELAM AU MD
--- NOTE | 2018-11-07 19:46 | CONSULT ---
Consult - text type - Consultation Consultation Note: The patient is a 68 year old female, with a significant PMH of CHF, DM, CAD, HTN , HLD, anemia and asthma, who presents to the emergency department with 3 days of dizziness with dysuria and nausea. The patient also endorses 1 day of fever and chills. in ER found temp 101 and UA positive We have been consulted for severe anemia - Past Medical History Cardiovascular: Yes: CAD (S/P STENTING), HTN, Hyperlipdemia Pulmonary: Yes: Asthma, Bronchitis, Pneumonia, Sleep Apnea Gastrointestinal: Yes: GERD Renal/: Yes: Renal Inusuff Heme/Onc: Yes: Anemia Musculoskeletal: Yes: Osteoarthritis Endocrine: Yes: Diabetes Mellitus - Smoking History Smoking history: Never smoked - Social History ADL: Family Assistance Occupation: [employer] - Allergies Allergies/Adverse Reactions: Allergies Allergy/AdvReac Type Severity Reaction Status Date / Time Penicillins Allergy Difficulty Verified 11/05/18 11:31 Breathing - Home Medications Home Medications: Ambulatory Orders Atorvastatin Ca [Lipitor] 80 mg PO HS 08/09/18 Ferrous Sulfate 325 mg PO DAILY 08/09/18 Linaclotide [Linzess] 145 mcg PO DAILY 08/09/18 Furosemide [Lasix -] 40 mg PO DAILY #30 tablet MDD 1 08/10/18 Pantoprazole Sodium [Protonix -] 40 mg PO DAILY #30 tablet.ec MDD 1 08/10/18 Aspirin Coated [Ecotrin -] 81 mg PO DAILY tablet.ec 08/12/18 Insulin Lispro Protamin/Lispro [Humalog Mix 50-50 Kwikpen] 25 units SQ BID 10/08 Losartan Potassium 1 tab PO DAILY 10/08/18 Metoprolol Succinate 1 tab PO DAILY 10/08/18 Ranitidine [Zantac -] 1 tab PO DAILY 10/08/18 Nystatin/Triamcinolone Top Cr [Mycolog II -] 2 applic TP BID #1 tube 10/12/18 Active Medications Generic Name Dose Route Start Last Admin Trade Name Freq PRN Reason Stop Dose Admin Acetaminophen 1,000 mg 11/07/18 08:24 11/07/18 09:45 Ofirmev Injection - IVPB 1,000 mg Q6H PRN Administration FEVER; IF PO NOT WORK Acetaminophen 650 mg 11/07/18 08:58 Tylenol - PO Q6H PRN FEVER Albuterol/Ipratropium 1 amp 11/07/18 08:58 Duoneb - NEB Q6H PRN SHORTNESS OF BREATH Alprazolam 0.5 mg 11/07/18 08:58 Xanax - PO BID PRN ANXIETY Atorvastatin Calcium 40 mg 11/07/18 22:00 Lipitor - PO HS [facility] Chlorhexidine Gluconate 1 applic 11/07/18 22:00 Hibiclens For Decolonization - TP HS [facility] Ferrous Sulfate 325 mg 11/07/18 10:00 11/07/18 11:52 Feosol - PO Not Given DAILY ALEE Furosemide 40 mg 11/07/18 09:15 Lasix Injection - IVPUSH 11/07/18 09:16 ONCE ONE Aztreonam 1 gm/ Dextrose 50 mls @ 100 mls/hr 11/07/18 10:00 11/07/18 18:55 IVPB 100 mls/hr Q8H-IV ALEE Administration Levofloxacin 500 mg in 100 mls @ 100 mls/hr 11/07/18 10:00 11/07/18 11:14 Levaquin 500 Mg Premixed Ivpb - IVPB 100 mls/hr DAILY ALEE Administration Protocol Pantoprazole Sodium 80 mg/ 100 mls @ 10 mls/hr 11/07/18 18:30 Sodium Chloride IVPB Q10H ALEE 8 MG/HR Sodium Chloride 1,000 mls @ 75 mls/hr 11/07/18 08:58 11/07/18 08:40 Normal Saline - IV Not Given ASDIR [facility] Insulin Aspart 1 vial 11/07/18 11:00 11/07/18 18:40 Novolog Vial Sliding Scale - SQ Not Given ACHS [facility] Protocol Metoprolol Succinate 50 mg 11/07/18 10:00 11/07/18 11:47 Toprol Xl - PO Not Given DAILY [facility] Mupirocin 1 applic 11/07/18 10:30 11/07/18 11:14 Bactroban Ointment (For Decolonization) - NS 11/12/18 10:29 1 applic BID ALEE Administration Non-Formulary Medication 145 mcg 11/07/18 10:00 Linaclotide [Linzess] PO DAILY [facility] Ondansetron HCl 4 mg 11/07/18 08:58 Zofran Injection IVPUSH Q6H PRN NAUSEA Family Disease History - Family Disease History Family Disease History: Diabetes: Mother (: DM II complications), Sister (6 , 1 of old age), Other: Father (: CVA), Mother, Brother (3, 2 from "Old age", 1 from Lung Ca), Sister, Son (5, healthy), Daughter (1, healthy) Vital Signs: Last Vital Signs Temp Pulse Resp BP Pulse Ox 98 F 69 12 157/69 100 11/07/18 17:00 11/07/18 17:00 11/07/18 17:00 11/07/18 17:00 11/07/18 09:00 obese Cor: RSR, No murmurs, No gallops Lungs: Clear to P&A Abd: Soft, Normal bowel sounds, No organomegaly Ext:No significant edema Labs/Meds reviewed A/P 68 year old female, with a significant PMH of CHF, DM, CAD, HTN, HLD, anemia and asthma, who presents to the emergency department with 3 days of dizziness with dysuria and nausea. The patient also endorses 1 day of fever and chills. in ER found temp 101 and UA positive --on levaquin/aztreonam Also on iv lasix/ elevated BNP We have been consulted for severe anemia s/p 1 unit PRBCs Anemia of chronic disease +/- iron deficiency Check iron studies/ferritin/TIBC/B12/folate/TSH Protein studies recently negative in09/12 to f/u for capsule ensdoscopy with dr. dominguez colonoscopy/egd negative last year
[2018-11-07 19:48] LABS: HEMATOCRIT 22.8 % (32.4-45.2); HEMOGLOBIN 7.4 GM/dL (10.7-15.3); MCH 27.8 pg (25.7-33.7); MCHC 32.3 g/dl (32.0-36.0); MEAN CELL VOLUME 85.9 fl (80-96); MEAN PLT VOLUME 10.7 fl (7.5-11.1); PLATELET COUNT 153 K/MM3 (134-434); RBC 2.66 M/mm3 (3.60-5.2); RDW 16.4 % (11.6-15.6); WHITE BLOOD COUNT 5.7 K/mm3 (4.0-10.0)
[2018-11-07 20:35] LABS: IRON SERUM 41 ug/dL (50-175); TOTAL IRON BINDING CAPACITY 250 ug/dL (250-450)
[2018-11-07] MEDS: CHLORHEXIDINE GLUCONATE 4% CLEANSER FOR DECOLONIZATION TP SCH (22:00)
[2018-11-07] MEDS: ATORVASTATIN CA 40 MG TABLET (FP) PO SCH (22:22)
--- NOTE | 2018-11-07 23:03 | PN ---
Progress Note, Physician Chief Complaint: feels weak and has dizzy feeling - Current Medication List Current Medications: Active Medications Acetaminophen (Ofirmev Injection -) 1,000 mg IVPB Q6H PRN PRN Reason: FEVER; IF PO NOT WORK Last Admin: 11/07/18 09:45 Dose: 1,000 mg Acetaminophen (Tylenol -) 650 mg PO Q6H PRN PRN Reason: FEVER Albuterol/Ipratropium (Duoneb -) 1 amp NEB Q6H PRN PRN Reason: SHORTNESS OF BREATH Alprazolam (Xanax -) 0.5 mg PO BID PRN PRN Reason: ANXIETY Atorvastatin Calcium (Lipitor -) 40 mg PO HS [facility] Last Admin: 11/07/18 22:22 Dose: 40 mg Chlorhexidine Gluconate (Hibiclens For Decolonization -) 1 applic TP HS [facility] Ferrous Sulfate (Feosol -) 325 mg PO DAILY [facility] Last Admin: 11/07/18 11:52 Dose: Not Given Furosemide (Lasix Injection -) 40 mg IVPUSH ONCE ONE Stop: 11/07/18 09:16 Aztreonam 1 gm/ Dextrose 50 mls @ 100 mls/hr IVPB Q8H-IV [facility] Last Admin: 11/07/18 18:55 Dose: 100 mls/hr Levofloxacin (Levaquin 500 Mg Premixed Ivpb -) 500 mg in 100 mls @ 100 mls/hr IVPB DAILY [facility]; Protocol Last Admin: 11/07/18 11:14 Dose: 100 mls/hr Pantoprazole Sodium 80 mg/ (Sodium Chloride) 100 mls @ 10 mls/hr IVPB Q10H [facility] Sodium Chloride (Normal Saline -) 1,000 mls @ 75 mls/hr IV ASDIR [facility] Last Admin: 11/07/18 08:40 Dose: Not Given Insulin Aspart (Novolog Vial Sliding Scale -) 1 vial SQ ACHS [facility]; Protocol Last Admin: 11/07/18 22:19 Dose: Not Given Metoprolol Succinate (Toprol Xl -) 50 mg PO DAILY [facility] Last Admin: 11/07/18 11:47 Dose: Not Given Mupirocin (Bactroban Ointment (For Decolonization) -) 1 applic NS BID [facility] Stop: 11/12/18 10:29 Last Admin: 11/07/18 11:14 Dose: 1 applic Non-Formulary Medication (Linaclotide [Linzess]) 145 mcg PO DAILY [facility] Ondansetron HCl (Zofran Injection) 4 mg IVPUSH Q6H PRN PRN Reason: NAUSEA - Objective Vital Signs: Vital Signs Temperature 98 F 11/07/18 17:00 Pulse Rate 69 11/07/18 17:00 Respiratory Rate 12 11/07/18 17:00 Blood Pressure 157/69 11/07/18 17:00 O2 Sat by Pulse Oximetry (%) 100 11/07/18 09:00 Constitutional: Yes: Anxious Eyes: Yes: EOM Intact HENT: Yes: Normocephalic Neck: Yes: Trachea Midline Cardiovascular: Yes: Regular Rate and Rhythm Respiratory: Yes: CTA Bilaterally Gastrointestinal: Yes: Normal Bowel Sounds ...Rectal Exam: Yes: Deferred Genitourinary: Yes: WNL Musculoskeletal: Yes: Back Pain, Joint Swelling, Muscle Pain, Muscle Weakness Extremities: Yes: WNL Edema: Yes Neurological: Yes: Alert, Oriented Labs: CBC, BMP 11/07/18 19:00 11/07/18 06:50 INR, PTT INR 1.18 (0.83-1.09) H 11/06/18 08:42 Problem List - Problems (1) Diabetes 1.5, managed as type 1 Code(s): E13.9 - OTHER SPECIFIED DIABETES MELLITUS WITHOUT COMPLICATIONS (2) Dyspnea on exertion Code(s): R06.09 - OTHER FORMS OF DYSPNEA (3) Sepsis Code(s): A41.9 - SEPSIS, UNSPECIFIED ORGANISM (4) HORACE (acute kidney injury) Code(s): N17.9 - ACUTE KIDNEY FAILURE, UNSPECIFIED (5) Acute exacerbation of CHF (congestive heart failure) Code(s): I50.9 - HEART FAILURE, UNSPECIFIED Qualifiers: Heart failure type: unspecified Qualified Code(s): I50.9 - Heart failure, unspecified (6) Acute hypoxemic respiratory failure Code(s): J96.01 - ACUTE RESPIRATORY FAILURE WITH HYPOXIA (7) Anemia Code(s): D64.9 - ANEMIA, UNSPECIFIED Qualifiers: Anemia type: unspecified type Qualified Code(s): D64.9 - Anemia, unspecified Assessment/Plan Current Active Problems Diabetes 1.5, managed as type 1 (Acute) Dyspnea on exertion (Acute) Elevated troponin I level (Acute) Fever (Acute) Sepsis (Acute) Abnormal Lab Results 11/07/18 11/07/18 11/07/18 06:50 06:50 06:50 RBC 2.37 L Hgb 6.6 L* Hct 20.1 L D RDW 16.9 H BUN 39.7 H Creatinine 1.5 H Random Glucose 211 H Calcium 8.2 L Iron Iron Saturation Troponin I 1.02 H* B-Natriuretic Peptide 4532.7 H Total Protein 6.1 L Albumin 2.6 L Crossmatch 11/07/18 11/07/18 11/07/18 09:30 19:00 19:00 RBC 2.66 L Hgb 7.4 L Hct 22.8 L RDW 16.4 H BUN Creatinine Random Glucose Calcium Iron 41 L Iron Saturation 16 L Troponin I B-Natriuretic Peptide Total Protein Albumin Crossmatch See Detail Laboratory Tests 10/10/18 10/10/18 10/10/18 05:57 06:00 11:26 Sodium Potassium Chloride Carbon Dioxide Anion Gap BUN Creatinine POC Glucometer 304 373 Random Glucose 286 H 10/10/18 11/07/18 11/07/18 16:29 05:40 06:50 Sodium 137 Potassium 4.4 Chloride 107 Carbon Dioxide 22 Anion Gap 8 BUN 39.7 H Creatinine 1.5 H POC Glucometer 294 164 Random Glucose 11/07/18 11/07/18 11/07/18 13:33 18:35 22:17 Sodium Potassium Chloride Carbon Dioxide Anion Gap BUN Creatinine POC Glucometer 190 224 230 Random Glucose plan: bgm achs lower dose since appetite less novolog 15 untis bid transfuse prbc
[2018-11-08] MEDS ORDERED: DEXTROSE 5%-WATER - 50 ML IVPB ONE ×3 (01:37→18:41)
[2018-11-08] MEDS ORDERED: AZTREONAM 1 GM VIAL (RESTRICTED TO ID) ONE ×3 (01:37→18:41)
[2018-11-08] MEDS: ACETAMINOPHEN 1000 MG/100 ML VIAL (NON FORMULARY) IVPB PRN ×2 (01:43→10:04)
[2018-11-08] MEDS: AZTREONAM 1 GM in DEXTROSE 5%-WATER - 50 ML IVPB SCH ×3 (01:44→18:44)
[2018-11-08] MEDS: PANTOPRAZOLE SODIUM 40 MG VIAL IVPUSH SCH ×3 (02:19→21:08)
[2018-11-08] MEDS: SODIUM CHLORIDE 1,000 ML IV SCH ×2 (02:19→21:10)
[2018-11-08] MEDS ORDERED: PROMETHAZINE HCL 25 MG/1 ML VIAL IVPUSH ONE (02:28)
[2018-11-08] MEDS: INSULIN SLIDING SCALE (NOVOLOG) 1 VIAL SQ SCH ×4 (06:27→21:08)
[2018-11-08 07:09] LABS: BLOOD UREA NITROGEN 37.8 mg/dL (7-18); CALCIUM 8.2 mg/dL (8.5-10.1); CREATININE 1.2 mg/dL (0.55-1.3); POTASSIUM 5.1 mmol/L (3.5-5.1)
[2018-11-08 07:12] LABS: BASO % 0.5 % (0-2.0); EOS % 1.4 % (0-4.5); LYMPH % 9.7 % (8-40); MCH 28.3 pg (25.7-33.7); MCHC 33.4 g/dl (32.0-36.0); MEAN CELL VOLUME 84.7 fl (80-96); MEAN PLT VOLUME 10.8 fl (7.5-11.1); MONO % 7.7 % (3.8-10.2); NEUT % 80.7 % (42.8-82.8); PLATELET COUNT 171 K/MM3 (134-434); RBC 2.36 M/mm3 (3.60-5.2); RDW 15.9 % (11.6-15.6); WHITE BLOOD COUNT 7.8 K/mm3 (4.0-10.0)
[2018-11-08 08:42] LABS: HEMOGLOBIN 6.7 GM/dL (10.7-15.3)
[2018-11-08 09:42] LABS: INR 1.16 (0.83-1.09); PROTHROMBIN TIME (PATIENT) 13.7 SEC (9.7-13.0)
[2018-11-08 09:45] LABS: ACTIVATED PTT 30.3 SECONDS (25.2-36.5)
[2018-11-08] MEDS ORDERED: PT OWN MED DRAWER 7, Y5N ONE (10:00)
[2018-11-08] MEDS: ALPRAZolam 0.25 MG TABLET PO PRN ×2 (10:05→21:08)
[2018-11-08] MEDS: metoPROLOL SUCCINATE 25 MG TAB.SR.24H (FP) PO SCH (10:06)
[2018-11-08] MEDS: FERROUS SO4 325 MG TABLET (FP) PO SCH (10:06)
--- NOTE | 2018-11-08 11:08 | PN ---
Progress Note, Physician Chief Complaint: AWAKE ALERT FAMILY BEDSIDE C/O FATIGUE/WEAKNESS - Current Medication List Current Medications: Active Medications Acetaminophen (Ofirmev Injection -) 1,000 mg IVPB Q6H PRN PRN Reason: FEVER; IF PO NOT WORK Last Admin: 11/08/18 10:04 Dose: 1,000 mg Acetaminophen (Tylenol -) 650 mg PO Q6H PRN PRN Reason: FEVER Albuterol/Ipratropium (Duoneb -) 1 amp NEB Q6H PRN PRN Reason: SHORTNESS OF BREATH Alprazolam (Xanax -) 0.5 mg PO BID PRN PRN Reason: ANXIETY Last Admin: 11/08/18 10:05 Dose: 0.5 mg Atorvastatin Calcium (Lipitor -) 40 mg PO HS [facility] Last Admin: 11/07/18 22:22 Dose: 40 mg Chlorhexidine Gluconate (Hibiclens For Decolonization -) 1 applic TP HS [facility] Last Admin: 11/07/18 22:00 Dose: 1 applic Ferrous Sulfate (Feosol -) 325 mg PO DAILY [facility] Last Admin: 11/08/18 10:06 Dose: 325 mg Furosemide (Lasix Injection -) 40 mg IVPUSH ONCE ONE Stop: 11/07/18 09:16 Aztreonam 1 gm/ Dextrose 50 mls @ 100 mls/hr IVPB Q8H-IV [facility] Last Admin: 11/08/18 10:05 Dose: 100 mls/hr Levofloxacin (Levaquin 500 Mg Premixed Ivpb -) 500 mg in 100 mls @ 100 mls/hr IVPB DAILY [facility]; Protocol Last Admin: 11/08/18 10:05 Dose: 100 mls/hr Sodium Chloride (Normal Saline -) 1,000 mls @ 75 mls/hr IV ASDIR [facility] Last Admin: 11/08/18 02:19 Dose: 75 mls/hr Insulin Aspart (Novolog Vial Sliding Scale -) 1 vial SQ ACHS [facility]; Protocol Last Admin: 11/08/18 06:27 Dose: Not Given Metoprolol Succinate (Toprol Xl -) 50 mg PO DAILY [facility] Last Admin: 11/08/18 10:06 Dose: 50 mg Mupirocin (Bactroban Ointment (For Decolonization) -) 1 applic NS BID [facility] Stop: 11/12/18 10:29 Last Admin: 11/07/18 22:00 Dose: 1 applic Non-Formulary Medication (Linaclotide [Linzess]) 145 mcg PO DAILY [facility] Ondansetron HCl (Zofran Injection) 4 mg IVPUSH Q6H PRN PRN Reason: NAUSEA Last Admin: 11/08/18 01:44 Dose: 4 mg Pantoprazole Sodium (Protonix Iv) 40 mg IVPUSH BID [facility] Last Admin: 11/08/18 10:52 Dose: 40 mg - Objective Vital Signs: Vital Signs Temperature 98.5 F 11/08/18 09:50 Pulse Rate 78 11/08/18 09:50 Respiratory Rate 21 H 11/08/18 09:50 Blood Pressure 164/80 11/08/18 09:50 O2 Sat by Pulse Oximetry (%) 100 11/07/18 22:00 Constitutional: Yes: Mild Distress Cardiovascular: Yes: Regular Rate and Rhythm Respiratory: Yes: Diminished, On Nasal O2 Gastrointestinal: Yes: Soft, Abdomen, Obese Genitourinary: Yes: WNL Musculoskeletal: Yes: Muscle Weakness Edema: Yes Integumentary: Yes: WNL Wound/Incision: Yes: Clean/Dry Neurological: Yes: WNL ...Motor Strength: WNL Psychiatric: Yes: WNL Labs: CBC, BMP 11/08/18 05:20 11/08/18 05:20 INR, PTT INR 1.18 (0.83-1.09) H 11/06/18 08:42 INR 1.16 (0.83-1.09) H 11/08/18 09:10 Problem List - Problems (1) Diabetes 1.5, managed as type 1 Code(s): E13.9 - OTHER SPECIFIED DIABETES MELLITUS WITHOUT COMPLICATIONS (2) Dyspnea on exertion Code(s): R06.09 - OTHER FORMS OF DYSPNEA (3) Elevated troponin I level Code(s): R74.8 - ABNORMAL LEVELS OF OTHER SERUM ENZYMES (4) Fever Code(s): R50.9 - FEVER, UNSPECIFIED (5) Sepsis Code(s): A41.9 - SEPSIS, UNSPECIFIED ORGANISM (6) Anemia Code(s): D64.9 - ANEMIA, UNSPECIFIED Qualifiers: Anemia type: unspecified type Qualified Code(s): D64.9 - Anemia, unspecified (7) Asthma Code(s): J45.909 - UNSPECIFIED ASTHMA, UNCOMPLICATED (8) GI bleed Code(s): K92.2 - GASTROINTESTINAL HEMORRHAGE, UNSPECIFIED Assessment/Plan MYELODYSPLASTIC WORKUP BONE MARROW BIOPSY D/W FAMILY FOR 45 MINS FINALLY THE PATIENT APPROVES. IRON IV TRANSFUSE NEEDED CARDIOLOGY FOLLOW UP NEEDS ENDOSCOPIC CAPSULE STUDY AT [facility] NEVER DONE OUTPATIENT FOR 6 MONTHS NOW! I HAVE DISCUSSED COMPLIANCE AND THE IMPORTANCE FOR THE PATIENT TO WATCH HER DIET, EAT HEALTHY, LOSE WEIGHT AND TAKE HER MEDICAL APPTS SERIOUSLY.
--- NOTE | 2018-11-08 11:40 | PN ---
Physical Exam: SUBJECTIVE: Patient seen and examined at bedside. Yesterday the patient received 2 units of pRBCs, today the patient's HgB was still low at 6.7 indicating that she is currently bleeding. Patient states she is feeling much better after her blood transfusion and that she feels better since yesterday. Still refuses rectal exam this morning because "they already did that before". OBJECTIVE: Vital Signs Period Temp Pulse Resp BP Sys/Lee Pulse Ox Last 24 Hr 98 F-99 F 66-84 12-23 142-170/37-80 100 GENERAL: awake, alert and oriented to person, place time. HEAD: Normocephalic, atraumatic. EYES: Pupils equal, round and reactive to light, extraocular movements intact, sclera anicteric. EARS, NOSE, THROAT: Oropharynx clear without exudates. Dry mucous membranes. NECK: Supple without lymphadenopathy, or JVD. LUNGS: Breath sounds equal, clear to auscultation bilaterally. No wheezes, and no crackles. No accessory muscle use. HEART: Regular rate and rhythm, normal S1 and S2 without murmur, rub or gallop. ABDOMEN: Obese abdomen. Soft, distended, non-tender to palpation. Normoactive bowel sounds x4 quadrants. No guarding, no rebound tenderness. RECTAL: Patient refuses rectal exam again this morning. MUSCULOSKELETAL: Normal range of motion at all joints. Moves all 4 extremities equally. EXTREMITIES: 2+ radial, dorsalis pedis pulses bilaterally, warm, well-perfused. No peripheral edema. NEUROLOGICAL: Cranial nerves II-XII intact. No gross focal deficits. Gait not observed. SKIN: Warm, dry. Laboratory Results - last 24 hr 11/07/18 11/07/18 11/07/18 09:30 13:33 18:35 WBC RBC Hgb Hct MCV MCH MCHC RDW Plt Count MPV Absolute Neuts (auto) Neutrophils % Lymphocytes % Monocytes % Eosinophils % Basophils % Nucleated RBC % Retic Count PT with INR INR PTT (Actin FS) Sodium Potassium Chloride Carbon Dioxide Anion Gap BUN Creatinine Est GFR (CKD-EPI)AfAm Est GFR (CKD-EPI)NonAf POC Glucometer 190 224 Random Glucose Calcium Iron TIBC Iron Saturation Unsaturated IBC Ferritin LD Total Blood Type O POSITIVE Antibody Screen Negative Crossmatch See Detail 08/14/19 08/14/19 08/14/19 19:00 19:00 19:00 WBC 5.7 RBC 2.66 L Hgb 7.4 L Hct 22.8 L MCV 85.9 MCH 27.8 MCHC 32.3 RDW 16.4 H Plt Count 153 MPV 10.7 Absolute Neuts (auto) Neutrophils % Lymphocytes % Monocytes % Eosinophils % Basophils % Nucleated RBC % Retic Count PT with INR INR PTT (Actin FS) Sodium Potassium Chloride Carbon Dioxide Anion Gap BUN Creatinine Est GFR (CKD-EPI)AfAm Est GFR (CKD-EPI)NonAf POC Glucometer Random Glucose Calcium Iron 41 L TIBC 250 Iron Saturation 16 L Unsaturated IBC 209 Ferritin 172.6 LD Total Blood Type Antibody Screen Crossmatch 11/07/18 11/08/18 11/08/18 22:17 05:20 05:20 WBC 7.8 RBC 2.36 L Hgb 6.7 L* Hct 20.0 L MCV 84.7 MCH 28.3 MCHC 33.4 RDW 15.9 H Plt Count 171 MPV 10.8 Absolute Neuts (auto) 6.3 Neutrophils % 80.7 Lymphocytes % 9.7 D Monocytes % 7.7 Eosinophils % 1.4 Basophils % 0.5 Nucleated RBC % 0 Retic Count PT with INR INR PTT (Actin FS) Sodium 139 Potassium 5.1 Chloride 108 H Carbon Dioxide 26 Anion Gap 5 L BUN 37.8 H Creatinine 1.2 Est GFR (CKD-EPI)AfAm 53.40 Est GFR (CKD-EPI)NonAf 46.07 POC Glucometer 230 Random Glucose 253 H Calcium 8.2 L Iron TIBC Iron Saturation Unsaturated IBC Ferritin LD Total 206 Blood Type Antibody Screen Crossmatch 11/08/18 11/08/18 11/08/18 05:20 06:11 09:10 WBC RBC Hgb Hct MCV MCH MCHC RDW Plt Count MPV Absolute Neuts (auto) Neutrophils % Lymphocytes % Monocytes % Eosinophils % Basophils % Nucleated RBC % Retic Count 0.94 D PT with INR 13.70 H INR 1.16 H PTT (Actin FS) 30.3 Sodium Potassium Chloride Carbon Dioxide Anion Gap BUN Creatinine Est GFR (CKD-EPI)AfAm Est GFR (CKD-EPI)NonAf POC Glucometer 232 Random Glucose Calcium Iron TIBC Iron Saturation Unsaturated IBC Ferritin LD Total Blood Type Antibody Screen Crossmatch Active Medications Generic Name Dose Route Start Last Admin Trade Name Freq PRN Reason Stop Dose Admin Acetaminophen 1,000 mg 11/07/18 08:24 11/08/18 10:04 Ofirmev Injection - IVPB 1,000 mg Q6H PRN Administration FEVER; IF PO NOT WORK Acetaminophen 650 mg 11/07/18 08:58 Tylenol - PO Q6H PRN FEVER Albuterol/Ipratropium 1 amp 11/07/18 08:58 Duoneb - NEB Q6H PRN SHORTNESS OF BREATH Alprazolam 0.5 mg 11/07/18 08:58 11/08/18 10:05 Xanax - PO 0.5 mg BID PRN Administration ANXIETY Atorvastatin Calcium 40 mg 11/07/18 22:00 11/07/18 22:22 Lipitor - PO 40 mg HS [facility] Administration Chlorhexidine Gluconate 1 applic 11/07/18 22:00 11/07/18 22:00 Hibiclens For Decolonization - TP 1 applic HS [facility] Administration Ferrous Sulfate 325 mg 11/07/18 10:00 11/08/18 10:06 Feosol - PO 325 mg DAILY [facility] Administration Furosemide 40 mg 11/07/18 09:15 Lasix Injection - IVPUSH 11/07/18 09:16 ONCE ONE Aztreonam 1 gm/ Dextrose 50 mls @ 100 mls/hr 11/07/18 10:00 11/08/18 10:05 IVPB 100 mls/hr Q8H-IV [facility] Administration Levofloxacin 500 mg in 100 mls @ 100 mls/hr 11/07/18 10:00 11/08/18 10:05 Levaquin 500 Mg Premixed Ivpb - IVPB 100 mls/hr DAILY [facility] Administration Protocol Sodium Chloride 1,000 mls @ 75 mls/hr 11/07/18 08:58 11/08/18 02:19 Normal Saline - IV 75 mls/hr ASDIR [facility] Administration Insulin Aspart 1 vial 11/07/18 11:00 11/08/18 06:27 Novolog Vial Sliding Scale - SQ Not Given ACHS [facility] Protocol Metoprolol Succinate 50 mg 11/07/18 10:00 11/08/18 10:06 Toprol Xl - PO 50 mg DAILY [facility] Administration Mupirocin 1 applic 11/07/18 10:30 11/07/18 22:00 Bactroban Ointment (For Decolonization) - NS 11/12/18 10:29 1 applic BID [facility] Administration Non-Formulary Medication 145 mcg 11/07/18 10:00 Linaclotide [Linzess] PO DAILY [facility] Ondansetron HCl 4 mg 11/07/18 08:58 11/08/18 01:44 Zofran Injection IVPUSH 4 mg Q6H PRN Administration NAUSEA Pantoprazole Sodium 40 mg 11/07/18 23:45 11/08/18 10:52 Protonix Iv IVPUSH 40 mg BID [facility] Administration ASSESSMENT/PLAN: Ms. Shukla is a 68 year old female with history of coronary artery disease (s/p stent 04/2017), chronic anemia, diabetes mellitus, hypertension, hyperlipidemia presented with complaint of fevers, chills dysuria, admitted for urosepsis and treated with Levofloxacin, and Aztreonam. Admitted to the ICU after a D[employer]IST was called to the floor when the patient was found unresponsive. Currently being worked up for GI bleed. Syncopal episode Sepsis Normocytic Anemia Troponinemia Coronary artery disease s/p stent (04/2017) Diabetes mellitus Asthma Sleep apnea Hypertension Hyperlipidemia Neurologic -Syncopal episode yesterday, however per D[employer]IST note, the event was witnessed and no trauma to head. Likely vasovagal. -Patient lethargic, however arousable to name and oriented to person, place, time Cardiac -Troponin peaked at 1.57, likely in setting of demand ischemia (Type II CT). Repeat troponin this morning at time of rapid response was 1.02. -Aspirin held by primary team in setting of anemia. -Will not administer full dose heparin/ plavix at this time given anemia and patient is not presenting with ACS -Transthorasic ECHO reveals EF 60%. LV and RV size, function normal -Metoprolol 50mg PO daily -Lipitor 40mg PO qHS -Patient has history of chronic diastolic CHF: in the past felt likely due to severe anemia, high output in the setting LV diastolic dysfunction. -can use Lasix prn -Cardiac monitoring while in ICU -Cardiology recommendations (Dr. Trevino) appreciated Pulmonary -Currently, patient saturating well on room air -Maintain oxygen saturation greater than 90% Infectious disease -Sepsis likely secondary to UTI (WBC count resolvign to 6.9, patient febrile to 100.8F overnight) -UA reveals turbid yellow urine, with protein, glucose, blood, nitirites, leukocyte esterase -Aztreonam 1 gram IV Q8 hours (day #1) -Levofloxacin 500mg IV daily (day #2) -Follow blood, urine cultures (growing gram negative rods) -ID recommendations (Dr. Mata) appreciated. Gastrointestinal -Patient endorses nausea, nonbloody, nonbillious vomiting -Per nursing staff, no hematemesis, hematochezia, melenic bowel movements. -Patient refuses rectal exam; follow stool for occult blood. -Protonix drip initiated by primary team due to concern for GI bleeding -Zofran -CT abdomen, pelvis without evidence of retroperitoneal bleeding or hematoma. -NPO for now given potentially active bleed that may require intervention -GI recommendations (Dr. Kennedy) appreciated. Hematologic -Normocytic anemia likely secondary to occult GI bleeding -Continue to follow CBC, transfuse for Hb <7 (goal Hb 8) -Received 2units pRBCs will order additional 2units for this AM and F/U labs -Repeat CBC 1 hour after transfusion -F/U iron studies -Consider ordering bleeding scan to assess patient for active bleed -Hematology recommendations (Dr. Graham) appreciated. Endocrine -Insulin sliding scale ACHS -Fingerstick blood glucose monitoring ACHS Disposition: We will continue to follow the patient. Thank you for this consultative opportunity. Visit type - Emergency Visit Emergency Visit: Yes ED Registration Date: 11/05/18 Care time: The patient presented to the Emergency Department on the above date and was hospitalized for further evaluation of their emergent condition. - New Patient This patient is new to me today: Yes Date on this admission: 11/08/18 - Critical Care Critical Care patient: Yes Total Critical Care Time (in minutes): 40 Critical Care Statement: The care of this patient involved high complexity decision making to prevent further life threatening deterioration of the patient 's condition and/or to evaluate & treat vital organ system(s) failure or risk of failure. ATTENDING PHYSICIAN STATEMENT I saw and evaluated the patient. I reviewed the resident's note and discussed the case with the resident. I agree with the resident's findings and plan as documented. SUBJECTIVE: OBJECTIVE: ASSESSMENT AND PLAN:
--- NOTE | 2018-11-08 12:26 | PN ---
Teaching Attending Note Name of Resident: Kaci Herrera ATTENDING PHYSICIAN STATEMENT I saw and evaluated the patient. I reviewed the resident's note and discussed the case with the resident. I agree with the resident's findings and plan as documented. SUBJECTIVE: Patient seen and examined in the ICU. Awake and alert. Nausea and dry heaving. Still with down trending H&H with no obvious site of loss. Denies CP or SOB. No Abdominal pain. Intake & Output 11/05/18 11/06/18 11/07/18 11/08/18 23:59 23:59 23:59 23:59 Intake Total 250 2275 1950 875 Balance 250 2275 1950 875 Weight 245 lb 246 lb 14.684 oz Last Vital Signs Temp Pulse Resp BP Pulse Ox 98.5 F 65 16 140/118 H 100 11/08/18 09:50 11/08/18 12:00 11/08/18 12:00 11/08/18 12:00 11/07/18 22:00 Active Medications Acetaminophen (Ofirmev Injection -) 1,000 mg IVPB Q6H PRN PRN Reason: FEVER; IF PO NOT WORK Last Admin: 11/08/18 10:04 Dose: 1,000 mg Acetaminophen (Tylenol -) 650 mg PO Q6H PRN PRN Reason: FEVER Albuterol/Ipratropium (Duoneb -) 1 amp NEB Q6H PRN PRN Reason: SHORTNESS OF BREATH Alprazolam (Xanax -) 0.5 mg PO BID PRN PRN Reason: ANXIETY Last Admin: 11/08/18 10:05 Dose: 0.5 mg Atorvastatin Calcium (Lipitor -) 40 mg PO HS [facility] Last Admin: 11/07/18 22:22 Dose: 40 mg Chlorhexidine Gluconate (Hibiclens For Decolonization -) 1 applic TP HS [facility] Last Admin: 11/07/18 22:00 Dose: 1 applic Ferrous Sulfate (Feosol -) 325 mg PO DAILY [facility] Last Admin: 11/08/18 10:06 Dose: 325 mg Furosemide (Lasix Injection -) 40 mg IVPUSH ONCE ONE Stop: 11/07/18 09:16 Aztreonam 1 gm/ Dextrose 50 mls @ 100 mls/hr IVPB Q8H-IV [facility] Last Admin: 11/08/18 10:05 Dose: 100 mls/hr Levofloxacin (Levaquin 500 Mg Premixed Ivpb -) 500 mg in 100 mls @ 100 mls/hr IVPB DAILY [facility]; Protocol Last Admin: 11/08/18 10:05 Dose: 100 mls/hr Sodium Chloride (Normal Saline -) 1,000 mls @ 75 mls/hr IV ASDIR [facility] Last Admin: 11/08/18 02:19 Dose: 75 mls/hr Insulin Aspart (Novolog Vial Sliding Scale -) 1 vial SQ ACHS [facility]; Protocol Last Admin: 11/08/18 06:27 Dose: Not Given Metoprolol Succinate (Toprol Xl -) 50 mg PO DAILY [facility] Last Admin: 11/08/18 10:06 Dose: 50 mg Mupirocin (Bactroban Ointment (For Decolonization) -) 1 applic NS BID [facility] Stop: 11/12/18 10:29 Last Admin: 11/07/18 22:00 Dose: 1 applic Non-Formulary Medication (Linaclotide [Linzess]) 145 mcg PO DAILY [facility] Ondansetron HCl (Zofran Injection) 4 mg IVPUSH Q6H PRN PRN Reason: NAUSEA Last Admin: 11/08/18 01:44 Dose: 4 mg Pantoprazole Sodium (Protonix Iv) 40 mg IVPUSH BID [facility] Last Admin: 11/08/18 10:52 Dose: 40 mg GENERAL: Awake and responsive, exam ins non-focal. HEAD: Normocephalic, atraumatic. EYES:sclera anicteric. EARS, NOSE, THROAT: Oropharynx clear without exudates. Dry mucous membranes. NECK: Supple without lymphadenopathy, or JVD. LUNGS: Breath sounds equal, clear to auscultation bilaterally. No wheezes, and no crackles. No accessory muscle use. HEART: Regular rate and rhythm, normal S1 and S2 without murmur, rub or gallop. ABDOMEN: Obese abdomen. Soft, distended, diffusely tender to palpation x4 quadrants. Normoactive bowel sounds x4 quadrants. No guarding, no rebound tenderness. MUSCULOSKELETAL: Normal range of motion at all joints. Moves all 4 extremities equally. EXTREMITIES: 2+ radial, dorsalis pedis pulses bilaterally, warm, well-perfused. No peripheral edema. NEUROLOGICAL: Awake and alert, non-focal exam. SKIN: Warm, dry. Laboratory Results - last 24 hr 11/07/18 11/07/18 11/07/18 09:30 13:33 18:35 WBC RBC Hgb Hct MCV MCH MCHC RDW Plt Count MPV Absolute Neuts (auto) Neutrophils % Lymphocytes % Monocytes % Eosinophils % Basophils % Nucleated RBC % Retic Count PT with INR INR PTT (Actin FS) Sodium Potassium Chloride Carbon Dioxide Anion Gap BUN Creatinine Est GFR (CKD-EPI)AfAm Est GFR (CKD-EPI)NonAf POC Glucometer 190 224 Random Glucose Calcium Iron TIBC Iron Saturation Unsaturated IBC Ferritin LD Total Blood Type O POSITIVE Antibody Screen Negative Crossmatch See Detail 11/07/18 11/07/18 11/07/18 19:00 19:00 19:00 WBC 5.7 RBC 2.66 L Hgb 7.4 L Hct 22.8 L MCV 85.9 MCH 27.8 MCHC 32.3 RDW 16.4 H Plt Count 153 MPV 10.7 Absolute Neuts (auto) Neutrophils % Lymphocytes % Monocytes % Eosinophils % Basophils % Nucleated RBC % Retic Count PT with INR INR PTT (Actin FS) Sodium Potassium Chloride Carbon Dioxide Anion Gap BUN Creatinine Est GFR (CKD-EPI)AfAm Est GFR (CKD-EPI)NonAf POC Glucometer Random Glucose Calcium Iron 41 L TIBC 250 Iron Saturation 16 L Unsaturated IBC 209 Ferritin 172.6 LD Total Blood Type Antibody Screen Crossmatch 11/07/18 11/08/18 11/08/18 22:17 05:20 05:20 WBC 7.8 RBC 2.36 L Hgb 6.7 L* Hct 20.0 L MCV 84.7 MCH 28.3 MCHC 33.4 RDW 15.9 H Plt Count 171 MPV 10.8 Absolute Neuts (auto) 6.3 Neutrophils % 80.7 Lymphocytes % 9.7 D Monocytes % 7.7 Eosinophils % 1.4 Basophils % 0.5 Nucleated RBC % 0 Retic Count PT with INR INR PTT (Actin FS) Sodium 139 Potassium 5.1 Chloride 108 H Carbon Dioxide 26 Anion Gap 5 L BUN 37.8 H Creatinine 1.2 Est GFR (CKD-EPI)AfAm 53.40 Est GFR (CKD-EPI)NonAf 46.07 POC Glucometer 230 Random Glucose 253 H Calcium 8.2 L Iron TIBC Iron Saturation Unsaturated IBC Ferritin LD Total 206 Blood Type Antibody Screen Crossmatch 11/08/18 11/08/18 11/08/18 05:20 06:11 09:10 WBC RBC Hgb Hct MCV MCH MCHC RDW Plt Count MPV Absolute Neuts (auto) Neutrophils % Lymphocytes % Monocytes % Eosinophils % Basophils % Nucleated RBC % Retic Count 0.94 D PT with INR 13.70 H INR 1.16 H PTT (Actin FS) 30.3 Sodium Potassium Chloride Carbon Dioxide Anion Gap BUN Creatinine Est GFR (CKD-EPI)AfAm Est GFR (CKD-EPI)NonAf POC Glucometer 232 Random Glucose Calcium Iron TIBC Iron Saturation Unsaturated IBC Ferritin LD Total Blood Type Antibody Screen Crossmatch ASSESSMENT/PLAN: Suspected vasovagal syncopal episode R/O Sepsis Normocytic Anemia Troponinemia Coronary artery disease s/p stent (04/2017) Diabetes mellitus Asthma Sleep apnea Hypertension Hyperlipidemia Aspiration precautions O2 as needed Glycemic control Continue cardiac meds ABX coverage per ID Strict I & O Normal transfusion thresholds: Hgb 8 GI follow up Will need formal reassessment of OSAS after discharge To discuss with IR possible imaging Requires ICU monitoring for tenuous status Dr Amaro Critical care time spent in reviewing chart, evaluating patient and formulating plan - 36 minutes.
[2018-11-08] MEDS ORDERED: INSULIN (NOVOLOG) ASPART 100 UNITS/ML 10ML VIAL ONE (12:40)
[2018-11-08] MEDS: MUPIROCIN 2% TOPICAL OINTMENT FOR DECOLONIZATION NS SCH ×2 (12:41→21:10)
--- NOTE | 2018-11-08 15:24 | PN ---
Progress Note, Physician History of Present Illness: seen and examined today in nad. receiving PRBCs - Current Medication List Current Medications: Active Medications Acetaminophen (Ofirmev Injection -) 1,000 mg IVPB Q6H PRN PRN Reason: FEVER; IF PO NOT WORK Last Admin: 11/08/18 10:04 Dose: 1,000 mg Acetaminophen (Tylenol -) 650 mg PO Q6H PRN PRN Reason: FEVER Albuterol/Ipratropium (Duoneb -) 1 amp NEB Q6H PRN PRN Reason: SHORTNESS OF BREATH Alprazolam (Xanax -) 0.5 mg PO BID PRN PRN Reason: ANXIETY Last Admin: 11/08/18 10:05 Dose: 0.5 mg Atorvastatin Calcium (Lipitor -) 40 mg PO HS [facility] Last Admin: 11/07/18 22:22 Dose: 40 mg Chlorhexidine Gluconate (Hibiclens For Decolonization -) 1 applic TP [facility] Last Admin: 11/07/18 22:00 Dose: 1 applic Ferrous Sulfate (Feosol -) 325 mg PO DAILY [facility] Last Admin: 11/08/18 10:06 Dose: 325 mg Furosemide (Lasix Injection -) 40 mg IVPUSH ONCE ONE Stop: 11/07/18 09:16 Aztreonam 1 gm/ Dextrose 50 mls @ 100 mls/hr IVPB Q8H-IV [facility] Last Admin: 11/08/18 10:05 Dose: 100 mls/hr Sodium Chloride (Normal Saline -) 1,000 mls @ 75 mls/hr IV ASDIR [facility] Last Admin: 11/08/18 02:19 Dose: 75 mls/hr Insulin Aspart (Novolog Vial Sliding Scale -) 1 vial SQ ACHS [facility]; Protocol Last Admin: 11/08/18 12:41 Dose: 5 units Metoprolol Succinate (Toprol Xl -) 50 mg PO DAILY [facility] Last Admin: 11/08/18 10:06 Dose: 50 mg Mupirocin (Bactroban Ointment (For Decolonization) -) 1 applic NS BID [facility] Stop: 11/12/18 10:29 Last Admin: 11/08/18 12:41 Dose: 1 applic Non-Formulary Medication (Linaclotide [Linzess]) 145 mcg PO DAILY [facility] Ondansetron HCl (Zofran Injection) 4 mg IVPUSH Q6H PRN PRN Reason: NAUSEA Last Admin: 11/08/18 01:44 Dose: 4 mg Pantoprazole Sodium (Protonix Iv) 40 mg IVPUSH BID [facility] Last Admin: 11/08/18 10:52 Dose: 40 mg - Objective Vital Signs: Vital Signs Temperature 98.3 F 11/08/18 13:13 Pulse Rate 68 11/08/18 13:13 Respiratory Rate 20 11/08/18 13:13 Blood Pressure 154/77 11/08/18 13:13 O2 Sat by Pulse Oximetry (%) 100 11/08/18 09:00 Constitutional: Yes: No Distress, Calm Eyes: Yes: Conjunctiva Clear, EOM Intact HENT: Yes: Atraumatic, Normocephalic Neck: Yes: Supple, Trachea Midline Cardiovascular: Yes: Regular Rate and Rhythm, S1, S2. No: Bradycardia, Tachycardia, Pulse Irregular, JVD, Gallop, Murmur, Rub, S3, S4, Varicosities Respiratory: Yes: Regular. No: Rales, Rhonchi, SOB, Wheezes Gastrointestinal: Yes: Normal Bowel Sounds, Soft Extremities: Yes: WNL Peripheral Pulses WNL: Yes Neurological: Yes: Alert, Oriented Psychiatric: Yes: Alert, Oriented Labs: CBC, BMP 11/08/18 05:20 11/08/18 05:20 INR, PTT INR 1.18 (0.83-1.09) H 11/06/18 08:42 INR 1.16 (0.83-1.09) H 11/08/18 09:10 - ....Imaging Chest X-ray: Report Reviewed, Image Reviewed EKG: Report Reviewed, Image Reviewed Other: Report Reviewed, Image Reviewed (tele-nsr, no sig arrhythmias) Assessment/Plan 68 year-old woman with a PMHx of HTN, DM-II, HLD, CAD, s/p mid LAD PCI with RADU on 05/01/2017 at [facility] with no other sig CAD, anemia (requiring recent blood transfusions x 3 in the past), no obvious source of bleeding, TERENCE, asthma, chronic diastolic CHF, prior admission 07/2018 with mild troponin elevation in setting of severe anemia felt to be secondary to demand ischemia, now admitted with fevers, chills, dysuria, being treated for presumed urosepsis. Found to be febrile, tachycardic, evidence of FALGUNI c/w urosepsis and anemic. Troponin level was sent in the ER which was wnl. A 2nd set of cardiac enzymes was sent this am which showed normal CK level but troponin increased to 1.23. she denies any chest pain currently or since coming to the hospital. she does have a history of chronic mild intermittent chest pain. no sob currently. no palpitations, pnd, orthopnea. Elevated troponin-with normal CK level, no chest pain or sob, known CAD with PCI with RADU mLAD 05/01/17 no other siginificant residual CAD -in setting of sepsis, FALGUNI, anemia, likely secondary to demand ischemia Type II DC, not c/w ACS or Type I DC -repeat echo 11/06/18 showed normal LV/RV size and function, mild to mod valvular abnl -troponin trended down and CK level never trended up -pt has recurrent anemia -ASA was held due to anemia -cont metoprolol and lipitor -hold off on full dose heparin and plavix given anemia and given not ACS -treat sepsis, anemia, FALGUNI as per primary team Chronic diastolic CHF: in the past felt likely due to severe anemia, high output in the setting LV diastolic dysfunction. -can use Lasix prn Syncope -likely vasovagal event in setting of anemia -no sig arrhythmias seen on tele at the time of the event. sinus bradycardia supports vasovagal event -cont tele monitoring in icu Will see as needed. Please call with any additional questions.
--- NOTE | 2018-11-08 16:26 | PN ---
Progress Note, Physician History of Present Illness: Pt seen and examined at bedside. She is awake and alert. She appears more comfortable today. - Current Medication List Current Medications: Active Medications Acetaminophen (Ofirmev Injection -) 1,000 mg IVPB Q6H PRN PRN Reason: FEVER; IF PO NOT WORK Last Admin: 11/08/18 10:04 Dose: 1,000 mg Acetaminophen (Tylenol -) 650 mg PO Q6H PRN PRN Reason: FEVER Albuterol/Ipratropium (Duoneb -) 1 amp NEB Q6H PRN PRN Reason: SHORTNESS OF BREATH Alprazolam (Xanax -) 0.5 mg PO BID PRN PRN Reason: ANXIETY Last Admin: 11/08/18 10:05 Dose: 0.5 mg Atorvastatin Calcium (Lipitor -) 40 mg PO HS [facility] Last Admin: 11/07/18 22:22 Dose: 40 mg Chlorhexidine Gluconate (Hibiclens For Decolonization -) 1 applic TP HS [facility] Last Admin: 11/07/18 22:00 Dose: 1 applic Ferrous Sulfate (Feosol -) 325 mg PO DAILY [facility] Last Admin: 11/08/18 10:06 Dose: 325 mg Furosemide (Lasix Injection -) 40 mg IVPUSH ONCE ONE Stop: 11/07/18 09:16 Aztreonam 1 gm/ Dextrose 50 mls @ 100 mls/hr IVPB Q8H-IV [facility] Last Admin: 11/08/18 10:05 Dose: 100 mls/hr Sodium Chloride (Normal Saline -) 1,000 mls @ 75 mls/hr IV ASDIR [facility] Last Admin: 11/08/18 02:19 Dose: 75 mls/hr Insulin Aspart (Novolog Vial Sliding Scale -) 1 vial SQ ACHS [facility]; Protocol Last Admin: 11/08/18 12:41 Dose: 5 units Metoprolol Succinate (Toprol Xl -) 50 mg PO DAILY [facility] Last Admin: 11/08/18 10:06 Dose: 50 mg Mupirocin (Bactroban Ointment (For Decolonization) -) 1 applic NS BID [facility] Stop: 11/12/18 10:29 Last Admin: 11/08/18 12:41 Dose: 1 applic Non-Formulary Medication (Linaclotide [Linzess]) 145 mcg PO DAILY [facility] Ondansetron HCl (Zofran Injection) 4 mg IVPUSH Q6H PRN PRN Reason: NAUSEA Last Admin: 11/08/18 01:44 Dose: 4 mg Pantoprazole Sodium (Protonix Iv) 40 mg IVPUSH BID [facility] Last Admin: 11/08/18 10:52 Dose: 40 mg - Objective Vital Signs: Vital Signs Temperature 99.7 F H 11/08/18 16:08 Pulse Rate 68 11/08/18 16:08 Respiratory Rate 22 H 11/08/18 16:08 Blood Pressure 168/79 11/08/18 16:08 O2 Sat by Pulse Oximetry (%) 100 11/08/18 09:00 Constitutional: Yes: Calm Eyes: Yes: Conjunctiva Clear HENT: Yes: Atraumatic Cardiovascular: Yes: S1, S2 Respiratory: Yes: CTA Bilaterally Gastrointestinal: Yes: Soft Genitourinary: Yes: WNL Musculoskeletal: Yes: WNL Edema: Yes Edema: LLE: Trace, RLE: Trace Neurological: Yes: Oriented Psychiatric: Yes: Oriented Labs: CBC, BMP 11/08/18 05:20 11/08/18 05:20 INR, PTT INR 1.18 (0.83-1.09) H 11/06/18 08:42 INR 1.16 (0.83-1.09) H 11/08/18 09:10 Problem List - Problems (1) Fever Code(s): R50.9 - FEVER, UNSPECIFIED (2) Sepsis Code(s): A41.9 - SEPSIS, UNSPECIFIED ORGANISM Assessment/Plan Current Medications Generic Name Dose Route Start Last Admin Trade Name Freq PRN Reason Stop Dose Admin Acetaminophen 1,000 mg 11/07/18 08:24 11/08/18 10:04 Ofirmev Injection - IVPB 1,000 mg Q6H PRN Administration FEVER; IF PO NOT WORK Acetaminophen 650 mg 11/07/18 08:58 Tylenol - PO Q6H PRN FEVER Albuterol/Ipratropium 1 amp 11/07/18 08:58 Duoneb - NEB Q6H PRN SHORTNESS OF BREATH Alprazolam 0.5 mg 11/07/18 08:58 11/08/18 10:05 Xanax - PO 0.5 mg BID PRN Administration ANXIETY Atorvastatin Calcium 40 mg 11/07/18 22:00 11/07/18 22:22 Lipitor - PO 40 mg HS [facility] Administration Chlorhexidine Gluconate 1 applic 11/07/18 22:00 11/07/18 22:00 Hibiclens For Decolonization - TP 1 applic HS [facility] Administration Ferrous Sulfate 325 mg 11/07/18 10:00 11/08/18 10:06 Feosol - PO 325 mg DAILY [facility] Administration Furosemide 40 mg 11/07/18 09:15 Lasix Injection - IVPUSH 11/07/18 09:16 ONCE ONE Aztreonam 1 gm/ Dextrose 50 mls @ 100 mls/hr 11/07/18 10:00 11/08/18 10:05 IVPB 100 mls/hr Q8H-IV [facility] Administration Sodium Chloride 1,000 mls @ 75 mls/hr 11/07/18 08:58 11/08/18 02:19 Normal Saline - IV 75 mls/hr ASDIR [facility] Administration Insulin Aspart 1 vial 11/07/18 11:00 11/08/18 12:41 Novolog Vial Sliding Scale - SQ 5 units ACHS [facility] Administration Protocol Metoprolol Succinate 50 mg 11/07/18 10:00 11/08/18 10:06 Toprol Xl - PO 50 mg DAILY [facility] Administration Mupirocin 1 applic 11/07/18 10:30 11/08/18 12:41 Bactroban Ointment (For Decolonization) - NS 11/12/18 10:29 1 applic BID [facility] Administration Non-Formulary Medication 145 mcg 11/07/18 10:00 Linaclotide [Linzess] PO DAILY [facility] Ondansetron HCl 4 mg 11/07/18 08:58 11/08/18 01:44 Zofran Injection IVPUSH 4 mg Q6H PRN Administration NAUSEA Pantoprazole Sodium 40 mg 11/07/18 23:45 11/08/18 10:52 Protonix Iv IVPUSH 40 mg BID [facility] Administration Impression 1. CKD 2. proteinuria 3. elevated kappa chains with abnormal ratio 4. symptomatic anemia 5. DM 6. obesity 7. cad 8. chf 9. hx of positive mallory Plan - renal function is improving - anemia workup - oncology follow up - ICU input appreciated - cont to monitor renal function - cont abx
[2018-11-08] MEDS: ACETAMINOPHEN 325 MG TABLET (FP) PO PRN (18:42)
[2018-11-08] MEDS: ATORVASTATIN CA 40 MG TABLET (FP) PO SCH (21:08)
[2018-11-08] MEDS: CHLORHEXIDINE GLUCONATE 4% CLEANSER FOR DECOLONIZATION TP SCH (21:09)
[2018-11-09] MEDS ORDERED: AZTREONAM 1 GM VIAL (RESTRICTED TO ID) ONE ×3 (01:03→17:56)
[2018-11-09] MEDS ORDERED: DEXTROSE 5%-WATER - 50 ML IVPB ONE ×3 (01:03→17:57)
[2018-11-09] MEDS: AZTREONAM 1 GM in DEXTROSE 5%-WATER - 50 ML IVPB SCH ×3 (01:07→17:58)
[2018-11-09 07:33] LABS: HEMATOCRIT 29.2 % (32.4-45.2); HEMOGLOBIN 9.8 GM/dL (10.7-15.3); MCH 28.7 pg (25.7-33.7); MCHC 33.5 g/dl (32.0-36.0); MEAN CELL VOLUME 85.7 fl (80-96); MEAN PLT VOLUME 10.6 fl (7.5-11.1); PLATELET COUNT 170 K/MM3 (134-434); RBC 3.41 M/mm3 (3.60-5.2); RDW 16.7 % (11.6-15.6); WHITE BLOOD COUNT 7.1 K/mm3 (4.0-10.0)
[2018-11-09 07:41] LABS: ALBUMIN 2.5 g/dl (3.4-5.0); BILIRUBIN,TOTAL 0.6 mg/dL (0.2-1); BLOOD UREA NITROGEN 29.9 mg/dL (7-18); CALCIUM 8.4 mg/dL (8.5-10.1); CREATININE 1.2 mg/dL (0.55-1.3); MAGNESIUM 2.3 mg/dL (1.8-2.4); PHOSPHOROUS 3.2 mg/dL (2.5-4.9); POTASSIUM 4.7 mmol/L (3.5-5.1)
--- NOTE | 2018-11-09 09:54 | PN ---
Progress Note (short form) - Note Progress Note: remains in ICU alert oob in chair Vital Signs Period Temp Pulse Resp BP Sys/Lee Pulse Ox Last 24 Hr 98.3 F-99.7 F 64-117 12-25 140-175/51-98 96 cor-rrr lungs clear abd firm, nt ext trace edema CBC, BMP 11/09/18 06:15 11/09/18 06:15 Microbiology 11/05/18 21:00 Blood - Arterial Blood Culture - Preliminary NO GROWTH OBTAINED AFTER 72 HOURS, INCUBATION TO CONTINUE FOR 2 DAYS. 11/05/18 21:00 Blood - Arterial Blood Culture - Preliminary NO GROWTH OBTAINED AFTER 72 HOURS, INCUBATION TO CONTINUE FOR 2 DAYS. 11/07/18 12:50 Blood - Peripheral Venous Blood Culture - Preliminary NO GROWTH OBTAINED AFTER 24 HOURS, INCUBATION TO CONTINUE FOR 4 DAYS. 11/05/18 12:55 Urine - Urine Clean Catch Urine Culture - Final Escherichia Coli 11/07/18 11:21 Blood - Peripheral Venous Blood Culture - Preliminary NO GROWTH OBTAINED AFTER 24 HOURS, INCUBATION TO CONTINUE FOR 4 DAYS. a/p syncope- most likely secondary to anemia s/p transfusion per gi /hematology fevers/chills- resolved ecoli uti marie sensitive-day #5 azactam, can switch to po bactrim to complete 7 days if okay with renal elevated troponins/cad- per cardiology penicillin allergy poorly controlled DM- hgbAIC 9 Problem List - Problems (1) Fever Code(s): R50.9 - FEVER, UNSPECIFIED (2) UTI (urinary tract infection) Code(s): N39.0 - URINARY TRACT INFECTION, SITE NOT SPECIFIED (3) Elevated troponin I level Code(s): R74.8 - ABNORMAL LEVELS OF OTHER SERUM ENZYMES (4) HORACE (acute kidney injury) Code(s): N17.9 - ACUTE KIDNEY FAILURE, UNSPECIFIED (5) DM2 (diabetes mellitus, type 2) Code(s): E11.9 - TYPE 2 DIABETES MELLITUS WITHOUT COMPLICATIONS (6) Penicillin allergy Code(s): Z88.0 - ALLERGY STATUS TO PENICILLIN (7) Anemia Code(s): D64.9 - ANEMIA, UNSPECIFIED Qualifiers: Anemia type: unspecified type Qualified Code(s): D64.9 - Anemia, unspecified
--- NOTE | 2018-11-09 10:14 | PN ---
Progress Note, Physician Chief Complaint: AWAKE ALERT FEELS BETTER IN ICU NO CHANGES OVERNIGHT - Current Medication List Current Medications: Active Medications Acetaminophen (Ofirmev Injection -) 1,000 mg IVPB Q6H PRN PRN Reason: FEVER; IF PO NOT WORK Last Admin: 11/08/18 10:04 Dose: 1,000 mg Acetaminophen (Tylenol -) 650 mg PO Q6H PRN PRN Reason: FEVER Last Admin: 11/08/18 18:42 Dose: 650 mg Albuterol/Ipratropium (Duoneb -) 1 amp NEB Q6H PRN PRN Reason: SHORTNESS OF BREATH Alprazolam (Xanax -) 0.5 mg PO BID PRN PRN Reason: ANXIETY Last Admin: 11/08/18 21:08 Dose: 0.5 mg Atorvastatin Calcium (Lipitor -) 40 mg PO HS [facility] Last Admin: 11/08/18 21:08 Dose: 40 mg Chlorhexidine Gluconate (Hibiclens For Decolonization -) 1 applic TP HS [facility] Last Admin: 11/08/18 21:09 Dose: 1 applic Ferrous Sulfate (Feosol -) 325 mg PO DAILY [facility] Last Admin: 11/08/18 10:06 Dose: 325 mg Furosemide (Lasix Injection -) 40 mg IVPUSH ONCE ONE Stop: 11/07/18 09:16 Aztreonam 1 gm/ Dextrose 50 mls @ 100 mls/hr IVPB Q8H-IV [facility] Last Admin: 11/09/18 01:07 Dose: 100 mls/hr Sodium Chloride (Normal Saline -) 1,000 mls @ 75 mls/hr IV ASDIR [facility] Last Admin: 11/08/18 21:10 Dose: 75 mls/hr Insulin Aspart (Novolog Vial Sliding Scale -) 1 vial SQ ACHS [facility]; Protocol Last Admin: 11/08/18 21:08 Dose: Not Given Metoprolol Succinate (Toprol Xl -) 50 mg PO DAILY [facility] Last Admin: 11/08/18 10:06 Dose: 50 mg Mupirocin (Bactroban Ointment (For Decolonization) -) 1 applic NS BID [facility] Stop: 11/12/18 10:29 Last Admin: 11/08/18 21:10 Dose: 1 applic Non-Formulary Medication (Linaclotide [Linzess]) 145 mcg PO DAILY [facility] Ondansetron HCl (Zofran Injection) 4 mg IVPUSH Q6H PRN PRN Reason: NAUSEA Last Admin: 11/08/18 01:44 Dose: 4 mg Pantoprazole Sodium (Protonix Iv) 40 mg IVPUSH BID [facility] Last Admin: 11/08/18 21:08 Dose: 40 mg - Objective Vital Signs: Vital Signs Temperature 99.7 F H 11/08/18 16:08 Pulse Rate 64 11/09/18 08:00 Respiratory Rate 17 11/09/18 08:00 Blood Pressure 161/54 L 11/09/18 08:00 O2 Sat by Pulse Oximetry (%) 96 11/08/18 20:18 Constitutional: Yes: Mild Distress Eyes: Yes: WNL HENT: Yes: WNL Neck: Yes: WNL Cardiovascular: Yes: Regular Rate and Rhythm Respiratory: Yes: Diminished, On Nasal O2 Gastrointestinal: Yes: Abdomen, Obese Genitourinary: Yes: WNL Musculoskeletal: Yes: WNL Extremities: Yes: WNL Edema: Yes Integumentary: Yes: WNL Wound/Incision: Yes: Clean/Dry Neurological: Yes: WNL ...Motor Strength: WNL Psychiatric: Yes: WNL Labs: CBC, BMP 11/09/18 06:15 11/09/18 06:15 INR, PTT INR 1.18 (0.83-1.09) H 11/06/18 08:42 INR 1.16 (0.83-1.09) H 11/08/18 09:10 Problem List - Problems (1) Diabetes 1.5, managed as type 1 Code(s): E13.9 - OTHER SPECIFIED DIABETES MELLITUS WITHOUT COMPLICATIONS (2) Dyspnea on exertion Code(s): R06.09 - OTHER FORMS OF DYSPNEA (3) Elevated troponin I level Code(s): R74.8 - ABNORMAL LEVELS OF OTHER SERUM ENZYMES (4) Fever Code(s): R50.9 - FEVER, UNSPECIFIED (5) Sepsis Code(s): A41.9 - SEPSIS, UNSPECIFIED ORGANISM (6) Acute hypoxemic respiratory failure Code(s): J96.01 - ACUTE RESPIRATORY FAILURE WITH HYPOXIA (7) Diabetes mellitus with hyperglycemia, with long-term current use of insulin Code(s): E11.65 - TYPE 2 DIABETES MELLITUS WITH HYPERGLYCEMIA; Z79.4 - PATIENT ACCOUNT REPRESENTATIVE (CURRENT) USE OF INSULIN (8) GI bleed Code(s): K92.2 - GASTROINTESTINAL HEMORRHAGE, UNSPECIFIED (9) Hypertension Code(s): I10 - ESSENTIAL (PRIMARY) HYPERTENSION (10) Pneumonia Code(s): J18.9 - PNEUMONIA, UNSPECIFIED ORGANISM Qualifiers: Pneumonia type: due to unspecified organism Laterality: bilateral Lung location: unspecified part of lung Qualified Code(s): J18.9 - Pneumonia, unspecified organism (11) Proteinuria Code(s): R80.9 - PROTEINURIA, UNSPECIFIED (12) Shortness of breath Code(s): R06.02 - SHORTNESS OF BREATH Assessment/Plan MYELODYSPLASTIC WORKUP BONE MARROW BIOPSY D/W FAMILY FOR 45 MINS FINALLY THE PATIENT APPROVES. IRON IV TRANSFUSE NEEDED CARDIOLOGY FOLLOW UP NEEDS ENDOSCOPIC CAPSULE STUDY AT [facility] NEVER DONE OUTPATIENT FOR 6 MONTHS NOW! I HAVE DISCUSSED COMPLIANCE AND THE IMPORTANCE FOR THE PATIENT TO WATCH HER DIET, EAT HEALTHY, LOSE WEIGHT AND TAKE HER MEDICAL APPTS SERIOUSLY.
[2018-11-09] MEDS: INSULIN SLIDING SCALE (NOVOLOG) 1 VIAL SQ SCH ×4 (10:28→21:09)
[2018-11-09] MEDS: FERROUS SO4 325 MG TABLET (FP) PO SCH (10:38)
[2018-11-09] MEDS: ACETAMINOPHEN 325 MG TABLET (FP) PO PRN (10:38)
[2018-11-09] MEDS: metoPROLOL SUCCINATE 25 MG TAB.SR.24H (FP) PO SCH (10:38)
[2018-11-09] MEDS: PANTOPRAZOLE SODIUM 40 MG VIAL IVPUSH SCH ×2 (10:39→21:09)
[2018-11-09] MEDS: MUPIROCIN 2% TOPICAL OINTMENT FOR DECOLONIZATION NS SCH (10:40)
--- NOTE | 2018-11-09 11:30 | PN ---
Physical Exam: SUBJECTIVE: Patient seen and examined at the bedside. States she occasionally has dry heaves but no vomiting. Had concern as to why her blood count was so low. This morning, Hgb 9.8, responded appropriately to transfusions. Denies cp, sob, abd pain, fever, chills, headaches, dizziness, lightheadedness, weakness, numbness, tingling. OBJECTIVE: Vital Signs Period Temp Pulse Resp BP Sys/Lee Pulse Ox Last 24 Hr 98.3 F-99.7 F 64-117 12-25 140-175/51-98 96 GENERAL: awake, alert and oriented to person, place time. HEAD: Normocephalic, atraumatic. EYES: Pupils equal, round and reactive to light, extraocular movements intact, sclera anicteric. NECK: Supple without lymphadenopathy, or JVD. LUNGS: Breath sounds equal, clear to auscultation bilaterally. No wheezes, and no crackles. No accessory muscle use. HEART: Regular rate and rhythm, normal S1 and S2 without murmur, rub or gallop. ABDOMEN: Obese abdomen. Soft, distended, non-tender to palpation. Normoactive bowel sounds x4 quadrants. No guarding, no rebound tenderness. MUSCULOSKELETAL: Normal range of motion at all joints. Moves all 4 extremities equally. EXTREMITIES: 2+ radial, dorsalis pedis pulses bilaterally, warm, well-perfused. No peripheral edema. NEUROLOGICAL: Cranial nerves II-XII intact. No gross focal deficits. PSYCHIATRIC: Anxious mood SKIN: Warm, dry. Laboratory Results - last 24 hr 11/07/18 11/07/18 11/08/18 09:30 19:00 12:36 WBC RBC Hgb Hct MCV MCH MCHC RDW Plt Count MPV Sodium Potassium Chloride Carbon Dioxide Anion Gap BUN Creatinine Est GFR (CKD-EPI)AfAm Est GFR (CKD-EPI)NonAf POC Glucometer 312 Random Glucose Calcium Phosphorus Magnesium Transferrin 164 L Total Bilirubin AST ALT Alkaline Phosphatase Total Protein Albumin Blood Type O POSITIVE Antibody Screen Negative Crossmatch See Detail 11/08/18 11/08/18 11/09/18 17:45 21:06 06:15 WBC 7.1 RBC 3.41 L Hgb 9.8 L Hct 29.2 L D MCV 85.7 MCH 28.7 MCHC 33.5 RDW 16.7 H Plt Count 170 MPV 10.6 Sodium Potassium Chloride Carbon Dioxide Anion Gap BUN Creatinine Est GFR (CKD-EPI)AfAm Est GFR (CKD-EPI)NonAf POC Glucometer 212 193 Random Glucose Calcium Phosphorus Magnesium Transferrin Total Bilirubin AST ALT Alkaline Phosphatase Total Protein Albumin Blood Type Antibody Screen Crossmatch 11/09/18 11/09/18 06:15 06:28 WBC RBC Hgb Hct MCV MCH MCHC RDW Plt Count MPV Sodium 140 Potassium 4.7 Chloride 109 H Carbon Dioxide 26 Anion Gap 5 L BUN 29.9 H Creatinine 1.2 Est GFR (CKD-EPI)AfAm 53.40 Est GFR (CKD-EPI)NonAf 46.07 POC Glucometer 172 Random Glucose 183 H Calcium 8.4 L Phosphorus 3.2 Magnesium 2.3 Transferrin Total Bilirubin 0.6 AST 17 ALT 43 Alkaline Phosphatase 92 Total Protein 6.0 L Albumin 2.5 L Blood Type Antibody Screen Crossmatch Active Medications Generic Name Dose Route Start Last Admin Trade Name Freq PRN Reason Stop Dose Admin Acetaminophen 1,000 mg 11/07/18 08:24 11/08/18 10:04 Ofirmev Injection - IVPB 1,000 mg Q6H PRN Administration FEVER; IF PO NOT WORK Acetaminophen 650 mg 11/07/18 08:58 11/09/18 10:38 Tylenol - PO 650 mg Q6H PRN Administration FEVER Albuterol/Ipratropium 1 amp 11/07/18 08:58 Duoneb - NEB Q6H PRN SHORTNESS OF BREATH Alprazolam 0.5 mg 11/07/18 08:58 11/08/18 21:08 Xanax - PO 0.5 mg BID PRN Administration ANXIETY Atorvastatin Calcium 40 mg 11/07/18 22:00 11/08/18 21:08 Lipitor - PO 40 mg HS ALEE Administration Chlorhexidine Gluconate 1 applic 11/07/18 22:00 11/08/18 21:09 Hibiclens For Decolonization - TP 1 applic HS ALEE Administration Ferrous Sulfate 325 mg 11/07/18 10:00 11/09/18 10:38 Feosol - PO 325 mg DAILY ALEE Administration Furosemide 40 mg 11/07/18 09:15 Lasix Injection - IVPUSH 11/07/18 09:16 ONCE ONE Aztreonam 1 gm/ Dextrose 50 mls @ 100 mls/hr 11/07/18 10:00 11/09/18 10:39 IVPB 100 mls/hr Q8H-IV ALEE Administration Insulin Aspart 1 vial 11/07/18 11:00 11/09/18 10:28 Novolog Vial Sliding Scale - SQ Not Given ACHS [facility] Protocol Metoprolol Succinate 50 mg 11/07/18 10:00 11/09/18 10:38 Toprol Xl - PO 50 mg DAILY ALEE Administration Mupirocin 1 applic 11/07/18 10:30 11/09/18 10:40 Bactroban Ointment (For Decolonization) - NS 11/12/18 10:29 1 applic BID ALEE Administration Non-Formulary Medication 145 mcg 11/07/18 10:00 Linaclotide [Linzess] PO DAILY ALEE Ondansetron HCl 4 mg 11/07/18 08:58 11/08/18 01:44 Zofran Injection IVPUSH 4 mg Q6H PRN Administration NAUSEA Pantoprazole Sodium 40 mg 11/07/18 23:45 11/09/18 10:39 Protonix Iv IVPUSH 40 mg BID ALEE Administration Polyethylene Glycol 17 gm 11/09/18 11:00 Miralax (For Daily Use) - PO DAILY ALEE ASSESSMENT/PLAN: Keily Shukla is a 68 year old female with history of coronary artery disease ( s/p stent 04/2017), chronic anemia, diabetes mellitus, hypertension, hyperlipidemia presented with complaint of fevers, chills dysuria, admitted for urosepsis and treated with Levofloxacin, and Aztreonam and was admitted to the ICU after a SUPERVISOR MARBLE was called to the floor when the patient was found unresponsive likely secondary to a vaso-vagal episode in the setting of anemia. Syncopal episode Sepsis Normocytic Anemia Troponinemia Coronary artery disease s/p stent (04/2017) Diabetes mellitus Asthma Sleep apnea Hypertension Hyperlipidemia Neurologic -Syncopal episode, event was witnessed and no trauma to head. Likely vasovagal. -currently oriented x3 -anxious mood -Xanax bid prn Cardiac -Troponin peaked at 1.57, likely in setting of demand ischemia (Type II PA). Repeat troponin was 1.02, downtrending. -Aspirin held by primary team in setting of anemia. -Will not administer full dose heparin/ plavix at this time given anemia and patient is not presenting with ACS -Transthorasic ECHO reveals EF 60%. LV and RV size, function normal -Metoprolol 50mg PO daily -Lipitor 40mg PO qHS -Patient has history of chronic diastolic CHF: in the past felt likely due to severe anemia, high output in the setting LV diastolic dysfunction. -can use Lasix prn -Cardiac monitoring while in ICU -Cardiology recommendations (Dr. Trevino) appreciated Pulmonary -Currently, patient saturating well on room air -Maintain oxygen saturation greater than 90% Infectious disease -Sepsis likely secondary to UTI, has remained afebrile for last 24 hours -UA reveals turbid yellow urine, with protein, glucose, blood, nitirites, leukocyte esterase -Aztreonam 1 gram IV Q8 hours (day #5), continue as bactrim not good in setting of patient's renal disease -blood cxs negative -urine cultures growing marie sensitive E.coli -ID recommendations (Dr. Mata) appreciated Gastrointestinal -Patient with no vomiting, but some nausea -Per nursing staff, no hematemesis, hematochezia, melenic bowel movements. -Patient refuses rectal exam -Protonix drip initiated by primary team due to concern for GI bleeding -Zofran -CT abdomen, pelvis without evidence of retroperitoneal bleeding or hematoma. -GI recommendations (Dr. Kennedy) appreciated. -no further evidence of bleeding or drop in Hgb -miralax for constipation Hematologic -Normocytic anemia likely secondary to occult GI bleeding -Continue to follow CBC, transfuse for Hb <7 (goal Hb 8) -Received 2 units yesterday, total 4 units - today Hgb 9.8 -iron studies showing likely anemia of chronic disease -reticulocytes in normal range, likely not producing new red cells in light of bleed/anemia, unknown reason for myelosuppression -Hematology recommendations (Dr. Graham) appreciated. -may need bone marrow biopsy, family stated they are ok with procedure Endocrine -Insulin sliding scale ACHS -Fingerstick blood glucose monitoring ACHS FEN -no standing fluids -continue to monitor electrolytes and replete as necessary -clear liquid diabetic diet CODE -full code Disposition: - stable for transfer to telemetry Visit type - Emergency Visit Emergency Visit: No - New Patient This patient is new to me today: Yes Date on this admission: 11/09/18 - Critical Care Critical Care patient: No
--- NOTE | 2018-11-09 11:56 | PN ---
Teaching Attending Note Name of Resident: Arden Richard ATTENDING PHYSICIAN STATEMENT I saw and evaluated the patient. I reviewed the resident's note and discussed the case with the resident. I agree with the resident's findings and plan as documented. SUBJECTIVE: Patient seen and examined in the ICU. Awake and alert. OOB to chair. H & H improved. Denies CP or SOB. No Abdominal pain. Intake & Output 11/06/18 11/07/18 11/08/18 11/09/18 23:59 23:59 23:59 23:59 Intake Total 2275 1950 2815 833 Output Total 1350 900 Balance 2275 1950 1465 -67 Weight 246 lb 248 lb 3.848 oz Last Vital Signs Temp Pulse Resp BP Pulse Ox 98.5 F 68 20 165/67 96 11/09/18 10:00 11/09/18 10:00 11/09/18 10:00 11/09/18 10:00 11/08/18 20:18 Active Medications Acetaminophen (Ofirmev Injection -) 1,000 mg IVPB Q6H PRN PRN Reason: FEVER; IF PO NOT WORK Last Admin: 11/08/18 10:04 Dose: 1,000 mg Acetaminophen (Tylenol -) 650 mg PO Q6H PRN PRN Reason: FEVER Last Admin: 11/09/18 10:38 Dose: 650 mg Albuterol/Ipratropium (Duoneb -) 1 amp NEB Q6H PRN PRN Reason: SHORTNESS OF BREATH Alprazolam (Xanax -) 0.5 mg PO BID PRN PRN Reason: ANXIETY Last Admin: 11/08/18 21:08 Dose: 0.5 mg Atorvastatin Calcium (Lipitor -) 40 mg PO HS ALEE Last Admin: 11/08/18 21:08 Dose: 40 mg Chlorhexidine Gluconate (Hibiclens For Decolonization -) 1 applic TP HS ALEE Last Admin: 11/08/18 21:09 Dose: 1 applic Ferrous Sulfate (Feosol -) 325 mg PO DAILY ALEE Last Admin: 11/09/18 10:38 Dose: 325 mg Furosemide (Lasix Injection -) 40 mg IVPUSH ONCE ONE Stop: 11/07/18 09:16 Aztreonam 1 gm/ Dextrose 50 mls @ 100 mls/hr IVPB Q8H-IV ALEE Last Admin: 11/09/18 10:39 Dose: 100 mls/hr Insulin Aspart (Novolog Vial Sliding Scale -) 1 vial SQ ACHS [facility]; Protocol Last Admin: 11/09/18 10:28 Dose: Not Given Metoprolol Succinate (Toprol Xl -) 50 mg PO DAILY [facility] Last Admin: 11/09/18 10:38 Dose: 50 mg Mupirocin (Bactroban Ointment (For Decolonization) -) 1 applic NS BID [facility] Stop: 11/12/18 10:29 Last Admin: 11/09/18 10:40 Dose: 1 applic Non-Formulary Medication (Linaclotide [Linzess]) 145 mcg PO DAILY [facility] Ondansetron HCl (Zofran Injection) 4 mg IVPUSH Q6H PRN PRN Reason: NAUSEA Last Admin: 11/08/18 01:44 Dose: 4 mg Pantoprazole Sodium (Protonix Iv) 40 mg IVPUSH BID [facility] Last Admin: 11/09/18 10:39 Dose: 40 mg Polyethylene Glycol (Miralax (For Daily Use) -) 17 gm PO DAILY [facility] GENERAL: Awake and responsive, exam is non-focal. HEAD: Normocephalic, atraumatic. EYES:sclera anicteric. EARS, NOSE, THROAT: Oropharynx clear without exudates. Dry mucous membranes. NECK: Supple without lymphadenopathy, or JVD. LUNGS: Breath sounds equal, clear to auscultation bilaterally. No wheezes, and no crackles. No accessory muscle use. HEART: Regular rate and rhythm, normal S1 and S2 without murmur, rub or gallop. ABDOMEN: Obese abdomen. Soft, distended, diffusely tender to palpation x4 quadrants. Normoactive bowel sounds x4 quadrants. No guarding, no rebound tenderness. MUSCULOSKELETAL: Normal range of motion at all joints. Moves all 4 extremities equally. EXTREMITIES: 2+ radial, dorsalis pedis pulses bilaterally, warm, well-perfused. No peripheral edema. NEUROLOGICAL: Awake and alert, non-focal exam. SKIN: Warm, dry. Laboratory Results - last 24 hr 11/07/18 11/07/18 11/08/18 09:30 19:00 12:36 WBC RBC Hgb Hct MCV MCH MCHC RDW Plt Count MPV Sodium Potassium Chloride Carbon Dioxide Anion Gap BUN Creatinine Est GFR (CKD-EPI)AfAm Est GFR (CKD-EPI)NonAf POC Glucometer 312 Random Glucose Calcium Phosphorus Magnesium Transferrin 164 L Total Bilirubin AST ALT Alkaline Phosphatase Total Protein Albumin Blood Type O POSITIVE Antibody Screen Negative Crossmatch See Detail 11/08/18 11/08/18 11/09/18 17:45 21:06 06:15 WBC 7.1 RBC 3.41 L Hgb 9.8 L Hct 29.2 L D MCV 85.7 MCH 28.7 MCHC 33.5 RDW 16.7 H Plt Count 170 MPV 10.6 Sodium Potassium Chloride Carbon Dioxide Anion Gap BUN Creatinine Est GFR (CKD-EPI)AfAm Est GFR (CKD-EPI)NonAf POC Glucometer 212 193 Random Glucose Calcium Phosphorus Magnesium Transferrin Total Bilirubin AST ALT Alkaline Phosphatase Total Protein Albumin Blood Type Antibody Screen Crossmatch 11/09/18 11/09/18 06:15 06:28 WBC RBC Hgb Hct MCV MCH MCHC RDW Plt Count MPV Sodium 140 Potassium 4.7 Chloride 109 H Carbon Dioxide 26 Anion Gap 5 L BUN 29.9 H Creatinine 1.2 Est GFR (CKD-EPI)AfAm 53.40 Est GFR (CKD-EPI)NonAf 46.07 POC Glucometer 172 Random Glucose 183 H Calcium 8.4 L Phosphorus 3.2 Magnesium 2.3 Transferrin Total Bilirubin 0.6 AST 17 ALT 43 Alkaline Phosphatase 92 Total Protein 6.0 L Albumin 2.5 L Blood Type Antibody Screen Crossmatch ASSESSMENT/PLAN: Suspected vasovagal syncopal episode R/O Sepsis Normocytic Anemia Troponinemia Coronary artery disease s/p stent (04/2017) Diabetes mellitus Asthma Sleep apnea Hypertension Hyperlipidemia PO as tolerated Aspiration precautions O2 as needed Glycemic control Continue cardiac meds ABX coverage per ID Follow I & O Normal transfusion thresholds: Hgb 8 Will need formal reassessment of OSAS after discharge Floor Dr Amaro
[2018-11-09] MEDS ORDERED: POLYETHYLENE GLYCOL 3350 119 GM BTL PO SCH (12:00)
--- NOTE | 2018-11-09 12:05 | PN ---
Progress Note (short form) - Note Progress Note: Patient seen and examined Transfusion dependent. Upper and lower endoscopy non revealing in past. Scheduled capsule - not as yet performed . Hemolytic work up negative previously with elevated haptoglobin and low retic count. Previously normal B-12, folate, and TFT's. Protein studies with mild increase in free kappa/ free lambda light chain ratio. Last Vital Signs Temp Pulse Resp BP Pulse Ox 98.5 F 68 20 165/67 96 11/09/18 10:00 11/09/18 10:00 11/09/18 10:00 11/09/18 10:00 11/08/18 20:18 HEENT: FERMIN, EOM Intact Cor: RSR, No murmurs, No gallops Lungs: Clear to P&A Abd: Soft, Normal bowel sounds, No organomegaly Ext:L:E edema Skin: No rashes, Integument intact CBC, BMP 11/09/18 06:15 11/09/18 06:15 Fe++-41; TIBC--250 ; % sat-16% ---> compatible with Fe++ deficiency. Elevated ferritin suggestive of component of chronic disease Current Medications Generic Name Dose Route Start Last Admin Trade Name Freq PRN Reason Stop Dose Admin Acetaminophen 1,000 mg 11/07/18 08:24 11/08/18 10:04 Ofirmev Injection - IVPB 1,000 mg Q6H PRN Administration FEVER; IF PO NOT WORK Acetaminophen 650 mg 11/07/18 08:58 11/09/18 10:38 Tylenol - PO 650 mg Q6H PRN Administration FEVER Albuterol/Ipratropium 1 amp 11/07/18 08:58 Duoneb - NEB Q6H PRN SHORTNESS OF BREATH Alprazolam 0.5 mg 11/07/18 08:58 11/08/18 21:08 Xanax - PO 0.5 mg BID PRN Administration ANXIETY Atorvastatin Calcium 40 mg 11/07/18 22:00 11/08/18 21:08 Lipitor - PO 40 mg HS ALEE Administration Chlorhexidine Gluconate 1 applic 11/07/18 22:00 11/08/18 21:09 Hibiclens For Decolonization - TP 1 applic HS ALEE Administration Ferrous Sulfate 325 mg 11/07/18 10:00 11/09/18 10:38 Feosol - PO 325 mg DAILY ALEE Administration Furosemide 40 mg 11/07/18 09:15 Lasix Injection - IVPUSH 11/07/18 09:16 ONCE ONE Aztreonam 1 gm/ Dextrose 50 mls @ 100 mls/hr 11/07/18 10:00 11/09/18 10:39 IVPB 100 mls/hr Q8H-IV ALEE Administration Insulin Aspart 1 vial 11/07/18 11:00 11/09/18 10:28 Novolog Vial Sliding Scale - SQ Not Given [facility] Protocol Metoprolol Succinate 50 mg 11/07/18 10:00 11/09/18 10:38 Toprol Xl - PO 50 mg DAILY ALEE Administration Mupirocin 1 applic 11/07/18 10:30 11/09/18 10:40 Bactroban Ointment (For Decolonization) - NS 11/12/18 10:29 1 applic BID ALEE Administration Non-Formulary Medication 145 mcg 11/07/18 10:00 Linaclotide [Linzess] PO DAILY [facility] Ondansetron HCl 4 mg 11/07/18 08:58 11/08/18 01:44 Zofran Injection IVPUSH 4 mg Q6H PRN Administration NAUSEA Pantoprazole Sodium 40 mg 11/07/18 23:45 11/09/18 10:39 Protonix Iv IVPUSH 40 mg BID ALEE Administration Polyethylene Glycol 17 gm 11/09/18 12:00 Miralax (For Daily Use) - PO DAILY [facility] Impression: Anemia Picture suggestive of iron deficiency; likely component of chronic disease Have re-requested Protein studies and flow cytometry S/P transfusion therapy. Bone marrow has been oked by patient and family; [place] may require I.R for procedure.
[2018-11-09] MEDS ORDERED: FERRIC CARBOXYMALTOSE 750 MG in SODIUM CHLORIDE 250 ML IVPB ONE (12:23)
--- NOTE | 2018-11-09 13:17 | PN ---
Progress Note, Physician History of Present Illness: Pt seen and examined at bedside. She is awake and alert. She says she feels better. - Current Medication List Current Medications: Active Medications Acetaminophen (Ofirmev Injection -) 1,000 mg IVPB Q6H PRN PRN Reason: FEVER; IF PO NOT WORK Last Admin: 11/08/18 10:04 Dose: 1,000 mg Acetaminophen (Tylenol -) 650 mg PO Q6H PRN PRN Reason: FEVER Last Admin: 11/09/18 10:38 Dose: 650 mg Albuterol/Ipratropium (Duoneb -) 1 amp NEB Q6H PRN PRN Reason: SHORTNESS OF BREATH Alprazolam (Xanax -) 0.5 mg PO BID PRN PRN Reason: ANXIETY Last Admin: 11/08/18 21:08 Dose: 0.5 mg Atorvastatin Calcium (Lipitor -) 40 mg PO [facility] Last Admin: 11/08/18 21:08 Dose: 40 mg Chlorhexidine Gluconate (Hibiclens For Decolonization -) 1 applic TP [facility] Last Admin: 11/08/18 21:09 Dose: 1 applic Ferrous Sulfate (Feosol -) 325 mg PO DAILY [facility] Last Admin: 11/09/18 10:38 Dose: 325 mg Furosemide (Lasix Injection -) 40 mg IVPUSH ONCE ONE Stop: 11/07/18 09:16 Aztreonam 1 gm/ Dextrose 50 mls @ 100 mls/hr IVPB Q8H-IV ALEE Last Admin: 11/09/18 10:39 Dose: 100 mls/hr Ferric Carboxymaltose 750 mg/ (Sodium Chloride) 265 mls @ 530 mls/hr IVPB ONCE ONE Stop: 11/09/18 12:52 Insulin Aspart (Novolog Vial Sliding Scale -) 1 vial SQ ACHS [facility]; Protocol Last Admin: 11/09/18 12:28 Dose: 4 units Metoprolol Succinate (Toprol Xl -) 50 mg PO DAILY [facility] Last Admin: 11/09/18 10:38 Dose: 50 mg Mupirocin (Bactroban Ointment (For Decolonization) -) 1 applic NS BID [facility] Stop: 11/12/18 10:29 Last Admin: 11/09/18 10:40 Dose: 1 applic Non-Formulary Medication (Linaclotide [Linzess]) 145 mcg PO DAILY [facility] Ondansetron HCl (Zofran Injection) 4 mg IVPUSH Q6H PRN PRN Reason: NAUSEA Last Admin: 11/08/18 01:44 Dose: 4 mg Pantoprazole Sodium (Protonix Iv) 40 mg IVPUSH BID ALEE Last Admin: 11/09/18 10:39 Dose: 40 mg Polyethylene Glycol (Miralax (For Daily Use) -) 17 gm PO DAILY [facility] - Objective Vital Signs: Vital Signs Temperature 98.5 F 11/09/18 10:00 Pulse Rate 62 11/09/18 12:00 Respiratory Rate 11/09/18 12:00 Blood Pressure 160/67 11/09/18 12:00 O2 Sat by Pulse Oximetry (%) 98 11/09/18 09:00 Constitutional: Yes: Calm Eyes: Yes: Conjunctiva Clear HENT: Yes: Atraumatic Neck: Yes: Supple Cardiovascular: Yes: S1, S2 Respiratory: Yes: CTA Bilaterally Gastrointestinal: Yes: Soft, Abdomen, Obese Genitourinary: Yes: WNL Musculoskeletal: Yes: WNL Edema: Yes Edema: LLE: Trace, RLE: Trace Integumentary: Yes: WNL Neurological: Yes: Oriented Psychiatric: Yes: Oriented Labs: CBC, BMP 11/09/18 06:15 11/09/18 06:15 INR, PTT INR 1.18 (0.83-1.09) H 11/06/18 08:42 INR 1.16 (0.83-1.09) H 11/08/18 09:10 Problem List - Problems (1) Fever Code(s): R50.9 - FEVER, UNSPECIFIED (2) Sepsis Code(s): A41.9 - SEPSIS, UNSPECIFIED ORGANISM Assessment/Plan Current Medications Generic Name Dose Route Start Last Admin Trade Name Freq PRN Reason Stop Dose Admin Acetaminophen 1,000 mg 11/07/18 08:24 11/08/18 10:04 Ofirmev Injection - IVPB 1,000 mg Q6H PRN Administration FEVER; IF PO NOT WORK Acetaminophen 650 mg 11/07/18 08:58 11/09/18 10:38 Tylenol - PO 650 mg Q6H PRN Administration FEVER Albuterol/Ipratropium 1 amp 11/07/18 08:58 Duoneb - NEB Q6H PRN SHORTNESS OF BREATH Alprazolam 0.5 mg 11/07/18 08:58 11/08/18 21:08 Xanax - PO 0.5 mg BID PRN Administration ANXIETY Atorvastatin Calcium 40 mg 11/07/18 22:00 11/08/18 21:08 Lipitor - PO 40 mg HS ALEE Administration Chlorhexidine Gluconate 1 applic 11/07/18 22:00 11/08/18 21:09 Hibiclens For Decolonization - TP 1 applic HS ALEE Administration Ferrous Sulfate 325 mg 11/07/18 10:00 11/09/18 10:38 Feosol - PO 325 mg DAILY ALEE Administration Furosemide 40 mg 11/07/18 09:15 Lasix Injection - IVPUSH 11/07/18 09:16 ONCE ONE Aztreonam 1 gm/ Dextrose 50 mls @ 100 mls/hr 11/07/18 10:00 11/09/18 10:39 IVPB 100 mls/hr Q8H-IV ALEE Administration Ferric Carboxymaltose 750 mg/ 265 mls @ 530 mls/hr 11/09/18 12:23 Sodium Chloride IVPB 11/09/18 12:52 ONCE ONE Insulin Aspart 1 vial 11/07/18 11:00 11/09/18 12:28 Novolog Vial Sliding Scale - SQ 4 units ACHS ALEE Administration Protocol Metoprolol Succinate 50 mg 11/07/18 10:00 11/09/18 10:38 Toprol Xl - PO 50 mg DAILY ALEE Administration Mupirocin 1 applic 11/07/18 10:30 11/09/18 10:40 Bactroban Ointment (For Decolonization) - NS 11/12/18 10:29 1 applic BID ALEE Administration Non-Formulary Medication 145 mcg 11/07/18 10:00 Linaclotide [Linzess] PO DAILY [facility] Ondansetron HCl 4 mg 11/07/18 08:58 11/08/18 01:44 Zofran Injection IVPUSH 4 mg Q6H PRN Administration NAUSEA Pantoprazole Sodium 40 mg 11/07/18 23:45 11/09/18 10:39 Protonix Iv IVPUSH 40 mg BID ALEE Administration Polyethylene Glycol 17 gm 11/09/18 12:00 Miralax (For Daily Use) - PO DAILY [facility] Impression 1. CKD 2. proteinuria 3. elevated kappa chains with abnormal ratio 4. symptomatic anemia 5. DM 6. obesity 7. cad 8. chf 9. 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
[2018-11-09 13:45] LABS: HEMATOCRIT 30.8 % (32.4-45.2); HEMOGLOBIN 10.2 GM/dL (10.7-15.3); MCH 28.6 pg (25.7-33.7); MCHC 33.3 g/dl (32.0-36.0); MEAN CELL VOLUME 85.8 fl (80-96); MEAN PLT VOLUME 10.6 fl (7.5-11.1); PLATELET COUNT 176 K/MM3 (134-434); RBC 3.58 M/mm3 (3.60-5.2); RDW 16.8 % (11.6-15.6); WHITE BLOOD COUNT 6.5 K/mm3 (4.0-10.0)
[2018-11-09] MEDS: SODIUM CHLORIDE 1,000 ML IV SCH (15:37)
[2018-11-09] MEDS ORDERED: PROMETHAZINE HCL 25 MG/1 ML VIAL IVPUSH ONE (19:58)
[2018-11-09] MEDS ORDERED: ONDANSETRON 4 MG/2 ML VIAL IVPUSH PRN (19:58)
[2018-11-09] MEDS ORDERED: ALBUTEROL SO4 2.5/IPRATROPIUM 0.5 INH SOL 3 ML VIAL.NEB. NEB PRN (19:58)
[2018-11-09] MEDS ORDERED: ALPRAZolam 0.25 MG TABLET PO PRN (19:58)
[2018-11-09] MEDS ORDERED: ACETAMINOPHEN 325 MG TABLET (FP) PO PRN (19:58)
[2018-11-09] MEDS ORDERED: ACETAMINOPHEN 1000 MG/100 ML VIAL (NON FORMULARY) IVPB PRN (19:58)
[2018-11-09] MEDS: ATORVASTATIN CA 40 MG TABLET (FP) PO SCH (21:09)
--- NOTE | 2018-11-09 21:42 | PN ---
Progress Note, Physician Chief Complaint: has improved feels more at rest - Current Medication List Current Medications: Active Medications Acetaminophen (Tylenol -) 650 mg PO Q6H PRN PRN Reason: FEVER Acetaminophen (Ofirmev Injection -) 1,000 mg IVPB Q6H PRN PRN Reason: FEVER; IF PO NOT WORK Albuterol/Ipratropium (Duoneb -) 1 amp NEB Q6H PRN PRN Reason: SHORTNESS OF BREATH Alprazolam (Xanax -) 0.5 mg PO BID PRN PRN Reason: ANXIETY Atorvastatin Calcium (Lipitor -) 40 mg PO HS [facility] Last Admin: 11/09/18 21:09 Dose: 40 mg Ferrous Sulfate (Feosol -) 325 mg PO DAILY [facility] Aztreonam 1 gm/ Dextrose 50 mls @ 100 mls/hr IVPB Q8H-IV [facility] Insulin Aspart (Novolog Vial Sliding Scale -) 1 vial SQ ACHS [facility]; Protocol Last Admin: 11/09/18 21:09 Dose: Not Given Metoprolol Succinate (Toprol Xl -) 50 mg PO DAILY [facility] Non-Formulary Medication (Linaclotide [Linzess]) 145 mcg PO DAILY [facility] Ondansetron HCl (Zofran Injection) 4 mg IVPUSH Q6H PRN PRN Reason: NAUSEA Pantoprazole Sodium (Protonix Iv) 40 mg IVPUSH BID [facility] Last Admin: 11/09/18 21:09 Dose: 40 mg Polyethylene Glycol (Miralax (For Daily Use) -) 17 gm PO DAILY [facility] - Objective Vital Signs: Vital Signs Temperature 97.7 F 11/09/18 17:37 Pulse Rate 59 L 11/09/18 19:00 Respiratory Rate 18 11/09/18 19:00 Blood Pressure 159/67 11/09/18 17:37 O2 Sat by Pulse Oximetry (%) 98 11/09/18 20:12 Constitutional: Yes: Calm Eyes: Yes: EOM Intact HENT: Yes: Normocephalic Neck: Yes: Trachea Midline Cardiovascular: Yes: Regular Rate and Rhythm Respiratory: Yes: CTA Bilaterally Gastrointestinal: Yes: Normal Bowel Sounds, Abdomen, Obese ...Rectal Exam: Yes: Deferred Genitourinary: Yes: WNL Musculoskeletal: Yes: WNL Extremities: Yes: WNL Edema: No Peripheral Pulses WNL: Yes Neurological: Yes: Alert Labs: CBC, BMP 11/09/18 12:58 11/09/18 06:15 INR, PTT INR 1.18 (0.83-1.09) H 11/06/18 08:42 INR 1.16 (0.83-1.09) H 11/08/18 09:10 Problem List - Problems (1) Diabetes 1.5, managed as type 1 Code(s): E13.9 - OTHER SPECIFIED DIABETES MELLITUS WITHOUT COMPLICATIONS (2) Dyspnea on exertion Code(s): R06.09 - OTHER FORMS OF DYSPNEA (3) Sepsis Code(s): A41.9 - SEPSIS, UNSPECIFIED ORGANISM (4) HORACE (acute kidney injury) Code(s): N17.9 - ACUTE KIDNEY FAILURE, UNSPECIFIED (5) Acute exacerbation of CHF (congestive heart failure) Code(s): I50.9 - HEART FAILURE, UNSPECIFIED Qualifiers: Heart failure type: unspecified Qualified Code(s): I50.9 - Heart failure, unspecified (6) Acute hypoxemic respiratory failure Code(s): J96.01 - ACUTE RESPIRATORY FAILURE WITH HYPOXIA (7) Anemia Code(s): D64.9 - ANEMIA, UNSPECIFIED Qualifiers: Anemia type: unspecified type Qualified Code(s): D64.9 - Anemia, unspecified Assessment/Plan Current Active Problems Diabetes 1.5, managed as type 1 (Acute) Dyspnea on exertion (Acute) Elevated troponin I level (Acute) Fever (Acute) Sepsis (Acute) anemia/etiology unknown workup in progress Abnormal Lab Results 11/07/18 11/09/18 11/09/18 19:00 06:15 06:15 RBC 3.41 L Hgb 9.8 L Hct 29.2 L D RDW 16.7 H Chloride 109 H Anion Gap 5 L BUN 29.9 H Random Glucose 183 H Calcium 8.4 L Transferrin 164 L Total Protein 6.0 L Albumin 2.5 L 11/09/18 12:58 RBC 3.58 L Hgb 10.2 L Hct 30.8 L RDW 16.8 H Chloride Anion Gap BUN Random Glucose Calcium Transferrin Total Protein Albumin Laboratory Tests 10/11/18 11/09/18 11/09/18 07:18 06:28 12:19 POC Glucometer 172 285 [place] LC, Quant 61.2 H [place]/Lambda Ratio 2.58 H 11/09/18 11/09/18 17:43 21:08 POC Glucometer 199 225 Free [place] LC, Quant [place]/Lambda Ratio plan; bgm qid novolog scale continue novolog 70/30 bid will titrate as appetite improves
[2018-11-09] MEDS: PATIENT'S OWN MEDICATION (NON-FORMULARY) (Linaclotide [Linzess] 145 MCG) PO SCH (22:44)
[2018-11-10] MEDS ORDERED: DEXTROSE 5%-WATER - 50 ML IVPB ONE ×3 (01:29→17:18)
[2018-11-10] MEDS ORDERED: AZTREONAM 1 GM VIAL (RESTRICTED TO ID) ONE ×3 (01:29→17:18)
[2018-11-10] MEDS: AZTREONAM 1 GM in DEXTROSE 5%-WATER - 50 ML IVPB SCH ×3 (01:33→17:34)
[2018-11-10] MEDS: INSULIN SLIDING SCALE (NOVOLOG) 1 VIAL SQ SCH ×4 (06:26→21:01)
[2018-11-10 06:41] LABS: HEMATOCRIT 30.1 % (32.4-45.2); MCH 28.5 pg (25.7-33.7); MCHC 33.1 g/dl (32.0-36.0); MEAN PLT VOLUME 10.6 fl (7.5-11.1); PLATELET COUNT 183 K/MM3 (134-434); RBC 3.51 M/mm3 (3.60-5.2); RDW 16.6 % (11.6-15.6)
[2018-11-10 07:04] LABS: BLOOD UREA NITROGEN 28.3 mg/dL (7-18); CALCIUM 8.2 mg/dL (8.5-10.1); CREATININE 1.2 mg/dL (0.55-1.3); MAGNESIUM 2.3 mg/dL (1.8-2.4); PHOSPHOROUS 3.2 mg/dL (2.5-4.9); POTASSIUM 4.5 mmol/L (3.5-5.1)
[2018-11-10] MEDS: FERROUS SO4 325 MG TABLET (FP) PO SCH (09:41)
[2018-11-10] MEDS: metoPROLOL SUCCINATE 25 MG TAB.SR.24H (FP) PO SCH (09:42)
[2018-11-10] MEDS ORDERED: PATIENT'S OWN MEDICATION (NON-FORMULARY) (Linaclotide [Linzess] 145 MCG) PO SCH (10:00)
[2018-11-10] MEDS: SENNOSIDES 8.6MG TABLET (FP) PO SCH ×2 (10:03→21:01)
[2018-11-10] MEDS: POLYETHYLENE GLYCOL 3350 119 GM BTL PO SCH ×2 (10:03→10:14)
--- NOTE | 2018-11-10 10:07 | PN ---
Teaching Attending Note Name of Resident: Arden Richard ATTENDING PHYSICIAN STATEMENT I saw and evaluated the patient. I reviewed the resident's note and discussed the case with the resident. I agree with the resident's findings and plan as documented. SUBJECTIVE: Patient seen and examined in the ICU. Awake and alert. OOB to chair. H & H improved. Denies CP or SOB. No Abdominal pain. Intake & Output 11/07/18 11/08/18 11/09/18 11/10/18 23:59 23:59 23:59 23:59 Intake Total 1950 2815 2883 50 Output Total 1350 1150 Balance 1950 1465 1733 50 Weight 246 lb 248 lb 3.848 oz 248 lb 3.848 oz Last Vital Signs Temp Pulse Resp BP Pulse Ox 98.2 F 79 22 H 108/73 98 11/10/18 06:00 11/10/18 08:00 11/10/18 08:00 11/10/18 08:00 11/09/18 20:12 Active Medications Acetaminophen (Tylenol -) 650 mg PO Q6H PRN PRN Reason: FEVER Acetaminophen (Ofirmev Injection -) 1,000 mg IVPB Q6H PRN PRN Reason: FEVER; IF PO NOT WORK Albuterol/Ipratropium (Duoneb -) 1 amp NEB Q6H PRN PRN Reason: SHORTNESS OF BREATH Alprazolam (Xanax -) 0.5 mg PO BID PRN PRN Reason: ANXIETY Last Admin: 11/10/18 02:29 Dose: 0.5 mg Atorvastatin Calcium (Lipitor -) 40 mg PO HS [facility] Last Admin: 11/09/18 21:09 Dose: 40 mg Ferrous Sulfate (Feosol -) 325 mg PO DAILY [facility] Last Admin: 11/10/18 09:41 Dose: 325 mg Aztreonam 1 gm/ Dextrose 50 mls @ 100 mls/hr IVPB Q8H-IV [facility] Last Admin: 11/10/18 09:41 Dose: 100 mls/hr Insulin Aspart (Novolog Vial Sliding Scale -) 1 vial SQ ACHS [facility]; Protocol Last Admin: 11/10/18 06:26 Dose: Not Given Metoprolol Succinate (Toprol Xl -) 50 mg PO DAILY [facility] Last Admin: 11/10/18 09:42 Dose: 50 mg Non-Formulary Medication (Linaclotide [Linzess]) 145 mcg PO DAILY [facility] Ondansetron HCl (Zofran Injection) 4 mg IVPUSH Q6H PRN PRN Reason: NAUSEA Pantoprazole Sodium (Protonix Iv) 40 mg IVPUSH BID [facility] Last Admin: 11/09/18 21:09 Dose: 40 mg Polyethylene Glycol (Miralax (For Daily Use) -) 17 gm PO DAILY [facility] Last Admin: 11/10/18 10:03 Dose: 17 grams Senna (Senna -) 1 tab PO BID [facility] Last Admin: 11/10/18 10:03 Dose: 1 tab GENERAL: Awake and responsive, exam is non-focal. HEAD: Normocephalic, atraumatic. EYES:sclera anicteric. EARS, NOSE, THROAT: Oropharynx clear without exudates. Dry mucous membranes. NECK: Supple without lymphadenopathy, or JVD. LUNGS: Breath sounds equal, clear to auscultation bilaterally. No wheezes, and no crackles. No accessory muscle use. HEART: Regular rate and rhythm, normal S1 and S2 without murmur, rub or gallop. ABDOMEN: Obese abdomen. Soft, distended, diffusely tender to palpation x4 quadrants. Normoactive bowel sounds x4 quadrants. No guarding, no rebound tenderness. MUSCULOSKELETAL: Normal range of motion at all joints. Moves all 4 extremities equally. EXTREMITIES: 2+ radial, dorsalis pedis pulses bilaterally, warm, well-perfused. No peripheral edema. NEUROLOGICAL: Awake and alert, non-focal exam. SKIN: Warm, dry. Laboratory Results - last 24 hr 11/09/18 11/09/18 11/09/18 12:19 12:58 17:43 WBC 6.5 RBC 3.58 L Hgb 10.2 L Hct 30.8 L MCV 85.8 MCH 28.6 MCHC 33.3 RDW 16.8 H Plt Count 176 MPV 10.6 Sodium Potassium Chloride Carbon Dioxide Anion Gap BUN Creatinine Est GFR (CKD-EPI)AfAm Est GFR (CKD-EPI)NonAf POC Glucometer 285 199 Random Glucose Calcium Phosphorus Magnesium 11/09/18 11/10/18 11/10/18 21:08 05:40 05:40 WBC 8.0 RBC 3.51 L Hgb 10.0 L Hct 30.1 L MCV 86.0 MCH 28.5 MCHC 33.1 RDW 16.6 H Plt Count 183 MPV 10.6 Sodium 141 Potassium 4.5 Chloride 108 H Carbon Dioxide 26 Anion Gap 6 L BUN 28.3 H Creatinine 1.2 Est GFR (CKD-EPI)AfAm 53.40 Est GFR (CKD-EPI)NonAf 46.07 POC Glucometer 225 Random Glucose 211 H Calcium 8.2 L Phosphorus 3.2 Magnesium 2.3 11/10/18 06:23 WBC RBC Hgb Hct MCV MCH MCHC RDW Plt Count MPV Sodium Potassium Chloride Carbon Dioxide Anion Gap BUN Creatinine Est GFR (CKD-EPI)AfAm Est GFR (CKD-EPI)NonAf POC Glucometer 231 Random Glucose Calcium Phosphorus Magnesium ASSESSMENT/PLAN: Suspected vasovagal syncopal episode R/O Sepsis Normocytic Anemia Troponinemia Coronary artery disease s/p stent (04/2017) Diabetes mellitus Asthma Sleep apnea Hypertension Hyperlipidemia PO as tolerated Aspiration precautions O2 as needed Glycemic control Continue cardiac meds ABX coverage per ID Follow I & O Normal transfusion thresholds: Hgb 8 Will need formal reassessment of OSAS after discharge 4W / 4S monitoring Dr Amaro
--- NOTE | 2018-11-10 10:12 | PN ---
Physical Exam: SUBJECTIVE: Patient seen and examined at the bedside. Today, has no acute complaints of cp, sob, abd pain, n/v, fever, chills, numbness, tingling, weakness. States that she has not had a bowel movement in several days. Hgb stable today at 10. OBJECTIVE: Vital Signs Period Temp Pulse Resp BP Sys/Lee Pulse Ox Last 24 Hr 97.7 F-98.3 F 58-79 16-22 108-178/53-73 98 GENERAL: awake, alert and oriented to person, place time. HEAD: Normocephalic, atraumatic. EYES: Pupils equal, round and reactive to light, extraocular movements intact, sclera anicteric. NECK: Supple without lymphadenopathy, or JVD. LUNGS: Breath sounds equal, clear to auscultation bilaterally. No wheezes, and no crackles. No accessory muscle use. HEART: Regular rate and rhythm, normal S1 and S2 without murmur, rub or gallop. ABDOMEN: Obese abdomen. Soft, distended, non-tender to palpation. Normoactive bowel sounds x4 quadrants. No guarding, no rebound tenderness. MUSCULOSKELETAL: Normal range of motion at all joints. Moves all 4 extremities equally. EXTREMITIES: 2+ radial, dorsalis pedis pulses bilaterally, warm, well-perfused. No peripheral edema. NEUROLOGICAL: Cranial nerves II-XII intact. No gross focal deficits. PSYCHIATRIC: Normal mood and affect. SKIN: Warm, dry. Laboratory Results - last 24 hr 11/09/18 11/09/18 11/09/18 12:19 12:58 17:43 WBC 6.5 RBC 3.58 L Hgb 10.2 L Hct 30.8 L MCV 85.8 MCH 28.6 MCHC 33.3 RDW 16.8 H Plt Count 176 MPV 10.6 Sodium Potassium Chloride Carbon Dioxide Anion Gap BUN Creatinine Est GFR (CKD-EPI)AfAm Est GFR (CKD-EPI)NonAf POC Glucometer 285 199 Random Glucose Calcium Phosphorus Magnesium 11/09/18 11/10/18 11/10/18 21:08 05:40 05:40 WBC 8.0 RBC 3.51 L Hgb 10.0 L Hct 30.1 L MCV 86.0 MCH 28.5 MCHC 33.1 RDW 16.6 H Plt Count 183 MPV 10.6 Sodium 141 Potassium 4.5 Chloride 108 H Carbon Dioxide 26 Anion Gap 6 L BUN 28.3 H Creatinine 1.2 Est GFR (CKD-EPI)AfAm 53.40 Est GFR (CKD-EPI)NonAf 46.07 POC Glucometer 225 Random Glucose 211 H Calcium 8.2 L Phosphorus 3.2 Magnesium 2.3 11/10/18 06:23 WBC RBC Hgb Hct MCV MCH MCHC RDW Plt Count MPV Sodium Potassium Chloride Carbon Dioxide Anion Gap BUN Creatinine Est GFR (CKD-EPI)AfAm Est GFR (CKD-EPI)NonAf POC Glucometer 231 Random Glucose Calcium Phosphorus Magnesium Active Medications Generic Name Dose Route Start Last Admin Trade Name Freq PRN Reason Stop Dose Admin Acetaminophen 650 mg 11/09/18 19:58 Tylenol - PO Q6H PRN FEVER Acetaminophen 1,000 mg 11/09/18 19:58 Ofirmev Injection - IVPB Q6H PRN FEVER; IF PO NOT WORK Albuterol/Ipratropium 1 amp 11/09/18 19:58 Duoneb - NEB Q6H PRN SHORTNESS OF BREATH Alprazolam 0.5 mg 11/09/18 19:58 11/10/18 02:29 Xanax - PO 0.5 mg BID PRN Administration ANXIETY Atorvastatin Calcium 40 mg 11/09/18 22:00 11/09/18 21:09 Lipitor - PO 40 mg HS [facility] Administration Ferrous Sulfate 325 mg 11/10/18 10:00 11/10/18 09:41 Feosol - PO 325 mg DAILY [facility] Administration Aztreonam 1 gm/ Dextrose 50 mls @ 100 mls/hr 11/10/18 02:00 11/10/18 09:41 IVPB 100 mls/hr Q8H-IV [facility] Administration Insulin Aspart 1 vial 11/09/18 22:00 11/10/18 06:26 Novolog Vial Sliding Scale - SQ Not Given ACHS [facility] Protocol Metoprolol Succinate 50 mg 11/10/18 10:00 11/10/18 09:42 Toprol Xl - PO 50 mg DAILY [facility] Administration Non-Formulary Medication 145 mcg 11/10/18 10:00 Linaclotide [Linzess] PO DAILY [facility] Ondansetron HCl 4 mg 11/09/18 19:58 Zofran Injection IVPUSH Q6H PRN NAUSEA Pantoprazole Sodium 40 mg 11/09/18 22:00 08/16/19 21:09 Protonix Iv IVPUSH 40 mg BID [facility] Administration Polyethylene Glycol 17 gm 11/10/18 10:00 11/10/18 10:03 Miralax (For Daily Use) - PO 17 grams DAILY [facility] Administration Senna 1 tab 11/10/18 10:00 11/10/18 10:03 Senna - PO 1 tab BID [facility] Administration ASSESSMENT/PLAN: Keily Shukla is a 68 year old female with history of coronary artery disease ( s/p stent 04/2017), chronic anemia, diabetes mellitus, hypertension, hyperlipidemia presented with complaint of fevers, chills dysuria, admitted for urosepsis and treated with Levofloxacin, and Aztreonam and was admitted to the ICU after a C[employer]ET[employer]ER was called to the floor when the patient was found unresponsive likely secondary to a vaso-vagal episode in the setting of anemia. Syncopal episode Sepsis Normocytic Anemia Troponinemia Coronary artery disease s/p stent (04/2017) Diabetes mellitus Asthma Sleep apnea Hypertension Hyperlipidemia Neurologic -Syncopal episode, event was witnessed and no trauma to head. Likely vasovagal. -currently oriented x3 -anxious mood at times -Xanax bid prn Cardiac -Troponin peaked at 1.57, likely in setting of demand ischemia (Type II CO). Repeat troponin was 1.02, downtrending. -Aspirin held by primary team in setting of anemia. -Will not administer full dose heparin/ plavix at this time given anemia and patient is not presenting with ACS -Transthorasic ECHO reveals EF 60%. LV and RV size, function normal -Metoprolol 50mg PO daily -Lipitor 40mg PO qHS -Patient has history of chronic diastolic CHF: in the past felt likely due to severe anemia, high output in the setting LV diastolic dysfunction. -can use Lasix prn -Cardiac monitoring while in ICU -Cardiology recommendations (Dr. Trevino) appreciated Pulmonary -Currently, patient saturating well on room air -Maintain oxygen saturation greater than 90% Infectious disease -Sepsis likely secondary to UTI, has remained afebrile for last 24 hours -UA reveals turbid yellow urine, with protein, glucose, blood, nitirites, leukocyte esterase -Aztreonam 1 gram IV Q8 hours (day #6), continue as bactrim not good in setting of patient's renal disease -blood cxs negative -urine cultures growing marie sensitive E.coli -ID recommendations (Dr. Mata) appreciated Gastrointestinal -Patient with no vomiting, but some nausea -Per nursing staff, no hematemesis, hematochezia, melenic bowel movements. -Patient refuses rectal exam -Protonix drip initiated by primary team due to concern for GI bleeding -Zofran -CT abdomen, pelvis without evidence of retroperitoneal bleeding or hematoma. -GI recommendations (Dr. Kennedy) appreciated. -no further evidence of bleeding or drop in Hgb -miralax and senna for constipation Hematologic -Normocytic anemia likely secondary to occult GI bleeding -Continue to follow CBC, transfuse for Hb <7 (goal Hb 8) -Received total 4 units -today Hgb 10, stable for last 24 hours -iron studies showing likely anemia of chronic disease -reticulocytes in normal range, likely not producing new red cells in light of bleed/anemia, unknown reason for myelosuppression -Hematology recommendations (Dr. Graham) appreciated. -to go for bone marrow biopsy on Monday -protein studies and flow cytometry pending Endocrine -Insulin sliding scale ACHS -Fingerstick blood glucose monitoring ACHS FEN -no standing fluids -continue to monitor electrolytes and replete as necessary -upgrade to full liquid diabetic diet CODE -full code Disposition: - stable for transfer to telemetry Visit type - Emergency Visit Emergency Visit: No - New Patient This patient is new to me today: No - Critical Care Critical Care patient: No
--- NOTE | 2018-11-10 10:14 | PN ---
Progress Note, Physician Chief Complaint: AWAKE ALERT DENIES SOB NO CP +APPETITE AND BM - Current Medication List Current Medications: Active Medications Acetaminophen (Tylenol -) 650 mg PO Q6H PRN PRN Reason: FEVER Acetaminophen (Ofirmev Injection -) 1,000 mg IVPB Q6H PRN PRN Reason: FEVER; IF PO NOT WORK Albuterol/Ipratropium (Duoneb -) 1 amp NEB Q6H PRN PRN Reason: SHORTNESS OF BREATH Alprazolam (Xanax -) 0.5 mg PO BID PRN PRN Reason: ANXIETY Last Admin: 11/10/18 02:29 Dose: 0.5 mg Atorvastatin Calcium (Lipitor -) 40 mg PO HS [facility] Last Admin: 11/09/18 21:09 Dose: 40 mg Ferrous Sulfate (Feosol -) 325 mg PO DAILY [facility] Last Admin: 11/10/18 09:41 Dose: 325 mg Aztreonam 1 gm/ Dextrose 50 mls @ 100 mls/hr IVPB Q8H-IV [facility] Last Admin: 11/10/18 09:41 Dose: 100 mls/hr Insulin Aspart (Novolog Vial Sliding Scale -) 1 vial SQ ACHS [facility]; Protocol Last Admin: 11/10/18 06:26 Dose: Not Given Metoprolol Succinate (Toprol Xl -) 50 mg PO DAILY [facility] Last Admin: 11/10/18 09:42 Dose: 50 mg Non-Formulary Medication (Linaclotide [Linzess]) 145 mcg PO DAILY [facility] Ondansetron HCl (Zofran Injection) 4 mg IVPUSH Q6H PRN PRN Reason: NAUSEA Pantoprazole Sodium (Protonix Iv) 40 mg IVPUSH BID [facility] Last Admin: 11/09/18 21:09 Dose: 40 mg Polyethylene Glycol (Miralax (For Daily Use) -) 17 gm PO DAILY [facility] Last Admin: 11/10/18 10:14 Dose: Not Given Senna (Senna -) 1 tab PO BID [facility] Last Admin: 11/10/18 10:03 Dose: 1 tab - Objective Vital Signs: Vital Signs Temperature 98.2 F 11/10/18 06:00 Pulse Rate 79 11/10/18 08:00 Respiratory Rate 22 H 11/10/18 08:00 Blood Pressure 108/73 11/10/18 08:00 O2 Sat by Pulse Oximetry (%) 98 08/16/19 20:12 Constitutional: Yes: Mild Distress Cardiovascular: Yes: Regular Rate and Rhythm Respiratory: Yes: Diminished Gastrointestinal: Yes: Abdomen, Obese Genitourinary: Yes: WNL Musculoskeletal: Yes: Muscle Weakness Edema: Yes Peripheral Pulses WNL: Yes Integumentary: Yes: Rash, Venous Stasis Changes Neurological: Yes: Pre-Existing Deficit ...Motor Strength: LLE, RLE Psychiatric: Yes: WNL Labs: CBC, BMP 11/10/18 05:40 11/10/18 05:40 INR, PTT INR 1.18 (0.83-1.09) H 11/06/18 08:42 INR 1.16 (0.83-1.09) H 11/08/18 09:10 Problem List - Problems (1) Diabetes 1.5, managed as type 1 Code(s): E13.9 - OTHER SPECIFIED DIABETES MELLITUS WITHOUT COMPLICATIONS (2) Dyspnea on exertion Code(s): R06.09 - OTHER FORMS OF DYSPNEA (3) Elevated troponin I level Code(s): R74.8 - ABNORMAL LEVELS OF OTHER SERUM ENZYMES (4) Fever Code(s): R50.9 - FEVER, UNSPECIFIED (5) Sepsis Code(s): A41.9 - SEPSIS, UNSPECIFIED ORGANISM (6) Acute hypoxemic respiratory failure Code(s): J96.01 - ACUTE RESPIRATORY FAILURE WITH HYPOXIA (7) Diabetes mellitus with hyperglycemia, with long-term current use of insulin Code(s): E11.65 - TYPE 2 DIABETES MELLITUS WITH HYPERGLYCEMIA; 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 (8) GI bleed Code(s): K92.2 - GASTROINTESTINAL HEMORRHAGE, UNSPECIFIED (9) Hypertension Code(s): I10 - ESSENTIAL (PRIMARY) HYPERTENSION (10) Pneumonia Code(s): J18.9 - PNEUMONIA, UNSPECIFIED ORGANISM Qualifiers: Pneumonia type: due to unspecified organism Laterality: bilateral Lung location: unspecified part of lung Qualified Code(s): J18.9 - Pneumonia, unspecified organism (11) Proteinuria Code(s): R80.9 - PROTEINURIA, UNSPECIFIED (12) Shortness of breath Code(s): R06.02 - SHORTNESS OF BREATH Assessment/Plan BM BX MONDAY MONITOR H/H NO LABS ORDERED FOR TOMORROW CHECK CBC MONDAY DVT PROPHYLAXIS OOB TO CHAIR
[2018-11-10] MEDS: PANTOPRAZOLE SODIUM 40 MG VIAL IVPUSH SCH ×2 (11:09→21:01)
--- NOTE | 2018-11-10 19:53 | PN ---
Progress Note (short form) - Note Progress Note: Patient seen and examined. No new complaints. Discussed also with family members present in the room. Transfusion dependent. Upper and lower endoscopy non revealing in past. Scheduled capsule - not as yet performed . Hemolytic work up negative previously with elevated haptoglobin and low retic count. Previously normal B-12, folate, and TFT's. Protein studies with mild increase in free kappa/ free lambda light chain ratio. Last Vital Signs Temp Pulse Resp BP Pulse Ox 98.5 F 65 16 176/73 H 98 11/10/18 18:00 11/10/18 18:00 11/10/18 18:00 11/10/18 18:00 11/10/18 09:00 HEENT: FERMIN, EOM Intact Cor: RSR, No murmurs, No gallops Lungs: Clear to P&A Abd: Soft, Normal bowel sounds, No organomegaly Ext:L:E edema Skin: No rashes, Integument intact Laboratory Last Values WBC 8.0 K/mm3 (4.0-10.0) 11/10/18 05:40 RBC 3.51 M/mm3 (3.60-5.2) L 11/10/18 05:40 Hgb 10.0 GM/dL (10.7-15.3) L 11/10/18 05:40 Hct 30.1 % (32.4-45.2) L 11/10/18 05:40 MCV 86.0 fl (80-96) 11/10/18 05:40 MCH 28.5 pg (25.7-33.7) 11/10/18 05:40 MCHC 33.1 g/dl (32.0-36.0) 11/10/18 05:40 RDW 16.6 % (11.6-15.6) H 11/10/18 05:40 Plt Count 183 K/MM3 (134-434) 11/10/18 05:40 MPV 10.6 fl (7.5-11.1) 11/10/18 05:40 Absolute Neuts (auto) 6.3 K/mm3 (1.5-8.0) 11/08/18 05:20 Neutrophils % 80.7 % (42.8-82.8) 11/08/18 05:20 Lymphocytes % 9.7 % (8-40) D 11/08/18 05:20 Monocytes % 7.7 % (3.8-10.2) 11/08/18 05:20 Eosinophils % 1.4 % (0-4.5) 11/08/18 05:20 Basophils % 0.5 % (0-2.0) 11/08/18 05:20 Nucleated RBC % 0 % (0-0) 11/08/18 05:20 Retic Count 0.94 % (0.5-1.5) D 11/08/18 05:20 PT with INR 14.00 SEC (9.7-13.0) H 11/06/18 08:42 PT with INR 13.70 SEC (9.7-13.0) H 11/08/18 09:10 INR 1.18 (0.83-1.09) H 11/06/18 08:42 INR 1.16 (0.83-1.09) H 11/08/18 09:10 PTT (Actin FS) 29.0 SECONDS (25.2-36.5) 11/06/18 08:42 PTT (Actin FS) 30.3 SECONDS (25.2-36.5) 11/08/18 09:10 Sodium 141 mmol/L (136-145) 11/10/18 05:40 Potassium 4.5 mmol/L (3.5-5.1) 11/10/18 05:40 Chloride 108 mmol/L (98-107) H 11/10/18 05:40 Carbon Dioxide 26 mmol/L (21-32) 11/10/18 05:40 Anion Gap 6 MMOL/L (8-16) L 11/10/18 05:40 BUN 28.3 mg/dL (7-18) H 11/10/18 05:40 Creatinine 1.2 mg/dL (0.55-1.3) 11/10/18 05:40 Est GFR (CKD-EPI)AfAm 53.40 11/10/18 05:40 Est GFR (CKD-EPI)NonAf 46.07 11/10/18 05:40 POC Glucometer 196 UNITS (80-120) 11/10/18 16:39 Random Glucose 211 mg/dL (74-106) H 11/10/18 05:40 Hemoglobin A1c % 9.1 % (4.2-6.3) H 11/06/18 08:42 Lactic Acid 1.5 mmol/L (0.4-2.0) 11/05/18 21:00 Calcium 8.2 mg/dL (8.5-10.1) L 11/10/18 05:40 Phosphorus 3.2 mg/dL (2.5-4.9) 11/10/18 05:40 Magnesium 2.3 mg/dL (1.8-2.4) 11/10/18 05:40 Iron 41 ug/dL (50-175) L 11/07/18 19:00 TIBC 250 ug/dL (250-450) 11/07/18 19:00 Iron Saturation 16 % (17.5-39) L 11/07/18 19:00 Unsaturated IBC 209 ug/dL (200-275) 11/07/18 19:00 Transferrin 164 mg/dL (200-370) L 11/07/18 19:00 Ferritin 172.6 ng/ml (8-388) 11/07/18 19:00 Total Bilirubin 0.6 mg/dL (0.2-1) 11/09/18 06:15 AST 17 U/L (15-37) 11/09/18 06:15 ALT 43 U/L (13-61) 11/09/18 06:15 Alkaline Phosphatase 92 U/L (45-117) 11/09/18 06:15 LD Total 206 U/L (84-246) 11/08/18 05:20 Creatine Kinase 84 U/L (26-192) 11/07/18 06:50 Troponin I 1.02 ng/ml (0.00-0.05) H* 11/07/18 06:50 B-Natriuretic Peptide 4532.7 pg/ml (5-125) H 11/07/18 06:50 Total Protein 6.0 g/dl (6.4-8.2) L 11/09/18 06:15 Albumin 2.5 g/dl (3.4-5.0) L 11/09/18 06:15 Triglycerides 155 mg/dL (0-150) H 11/06/18 08:42 Cholesterol 144 mg/dL (50-200) 11/06/18 08:42 Total LDL Cholesterol 73 mg/dL (5-100) 11/06/18 08:42 HDL Cholesterol 43 mg/dL (40-60) 11/06/18 08:42 Urine Color Yellow 11/05/18 12:55 Urine Appearance Turbid 11/05/18 12:55 Urine pH 6.0 (5.0-8.0) 11/05/18 12:55 Ur Specific [place] 1.014 (1.010-1.035) 11/05/18 12:55 Urine Protein 3+ (NEGATIVE) H 11/05/18 12:55 Urine Glucose (UA) 1+ (NEGATIVE) H 11/05/18 12:55 Urine Ketones Negative (NEGATIVE) 11/05/18 12:55 Urine Blood 2+ (NEGATIVE) H 11/05/18 12:55 Urine Nitrite Positive (NEGATIVE) H 11/05/18 12:55 Urine Bilirubin Negative (NEGATIVE) 11/05/18 12:55 Urine Urobilinogen 0.2 mg/dL (0.2-1.0) 11/05/18 12:55 Ur Leukocyte Esterase 3+ (NEGATIVE) H 11/05/18 12:55 Urine WBC (Auto) 1321 /hpf (0-5) 11/05/18 12:55 Urine RBC (Auto) 16 /hpf (0-4) 11/05/18 12:55 Urine Casts (Auto) 11 /lpf (0-8) 11/05/18 12:55 U Pathogenic Cast Auto None seen /lpf (NEGATIVE) 11/05/18 12:55 U Epithel Cells (Auto) 1.5 /HPF (0-5/HPF) 11/05/18 12:55 Urine Bacteria (Auto) 8733.5 /hpf (NEGATIVE) 11/05/18 12:55 Serum MALLIKA Interpret (.) 11/09/18 12:58 IEP IgG 933 mg/dL (700-1600) 11/09/18 12:58 IEP IgA 329 mg/dL (87-352) 11/09/18 12:58 IEP IgM 24 mg/dL (26-217) L 11/09/18 12:58 Blood Type O POSITIVE 11/07/18 09:30 Antibody Screen Negative 11/07/18 09:30 Crossmatch See Detail 11/07/18 09:30 Fe++-41; TIBC--250 ; % sat-16% ---> compatible with Fe++ deficiency. Elevated ferritin suggestive of component of chronic disease Current Medications Acetaminophen (Tylenol -) 650 mg PO Q6H PRN PRN Reason: FEVER Acetaminophen (Ofirmev Injection -) 1,000 mg IVPB Q6H PRN PRN Reason: FEVER; IF PO NOT WORK Albuterol/Ipratropium (Duoneb -) 1 amp NEB Q6H PRN PRN Reason: SHORTNESS OF BREATH Atorvastatin Calcium (Lipitor -) 40 mg PO HS [facility] Last Admin: 11/09/18 21:09 Dose: 40 mg Ferrous Sulfate (Feosol -) 325 mg PO DAILY [facility] Last Admin: 11/10/18 09:41 Dose: 325 mg Aztreonam 1 gm/ Dextrose 50 mls @ 100 mls/hr IVPB Q8H-IV [facility] Last Admin: 11/10/18 17:34 Dose: 100 mls/hr Insulin Aspart (Novolog Vial Sliding Scale -) 1 vial SQ ACHS [facility]; Protocol Last Admin: 11/10/18 16:59 Dose: Not Given Metoprolol Succinate (Toprol Xl -) 50 mg PO DAILY [facility] Last Admin: 11/10/18 09:42 Dose: 50 mg Non-Formulary Medication (Linaclotide [Linzess]) 145 mcg PO DAILY [facility] Ondansetron HCl (Zofran Injection) 4 mg IVPUSH Q6H PRN PRN Reason: NAUSEA Pantoprazole Sodium (Protonix Iv) 40 mg IVPUSH BID [facility] Last Admin: 11/10/18 11:09 Dose: 40 mg Polyethylene Glycol (Miralax (For Daily Use) -) 17 gm PO DAILY [facility] Last Admin: 11/10/18 10:14 Dose: Not Given Senna (Senna -) 1 tab PO BID [facility] Last Admin: 11/10/18 10:03 Dose: 1 tab Impression: Anemia Picture suggestive of iron deficiency; likely component of chronic disease Have re-requested Protein studies and flow cytometry S/P transfusion therapy. Bone marrow has been oked by patient and family;Further explanations provided on safety of procedure. [place] may require I.R for procedure.
[2018-11-10] MEDS: ATORVASTATIN CA 40 MG TABLET (FP) PO SCH (21:01)
[2018-11-11] MEDS ORDERED: AZTREONAM 1 GM VIAL (RESTRICTED TO ID) ONE ×3 (01:19→18:01)
[2018-11-11] MEDS ORDERED: DEXTROSE 5%-WATER - 50 ML IVPB ONE ×3 (01:19→18:01)
[2018-11-11] MEDS: AZTREONAM 1 GM in DEXTROSE 5%-WATER - 50 ML IVPB SCH ×3 (01:21→18:17)
[2018-11-11] MEDS: INSULIN SLIDING SCALE (NOVOLOG) 1 VIAL SQ SCH ×4 (06:45→21:45)
[2018-11-11 06:53] LABS: HEMATOCRIT 30.8 % (32.4-45.2); HEMOGLOBIN 10.1 GM/dL (10.7-15.3); MCH 28.4 pg (25.7-33.7); MCHC 32.7 g/dl (32.0-36.0); MEAN CELL VOLUME 86.9 fl (80-96); MEAN PLT VOLUME 10.3 fl (7.5-11.1); PLATELET COUNT 196 K/MM3 (134-434); RBC 3.54 M/mm3 (3.60-5.2); RDW 16.8 % (11.6-15.6); WHITE BLOOD COUNT 6.4 K/mm3 (4.0-10.0)
[2018-11-11 07:07] LABS: BLOOD UREA NITROGEN 22.6 mg/dL (7-18); CALCIUM 8.6 mg/dL (8.5-10.1); CREATININE 1.1 mg/dL (0.55-1.3); MAGNESIUM 2.3 mg/dL (1.8-2.4); PHOSPHOROUS 3.2 mg/dL (2.5-4.9); POTASSIUM 4.6 mmol/L (3.5-5.1)
[2018-11-11] MEDS: SENNOSIDES 8.6MG TABLET (FP) PO SCH ×2 (09:46→21:45)
[2018-11-11] MEDS: FERROUS SO4 325 MG TABLET (FP) PO SCH (09:46)
[2018-11-11] MEDS: metoPROLOL SUCCINATE 25 MG TAB.SR.24H (FP) PO SCH (09:47)
[2018-11-11] MEDS: POLYETHYLENE GLYCOL 3350 119 GM BTL PO SCH (09:48)
[2018-11-11] MEDS: PANTOPRAZOLE SODIUM 40 MG VIAL IVPUSH SCH ×2 (09:48→21:45)
[2018-11-11] MEDS ORDERED: LOSARTAN POTASSIUM 50 MG TABLET (FP) PO ONE (10:04)
--- NOTE | 2018-11-11 10:05 | PN ---
Progress Note, Physician Chief Complaint: PATIENT SEEN IN ICU AWAKE ALERT FEELS GOOD - Current Medication List Current Medications: Active Medications Acetaminophen (Tylenol -) 650 mg PO Q6H PRN PRN Reason: FEVER Acetaminophen (Ofirmev Injection -) 1,000 mg IVPB Q6H PRN PRN Reason: FEVER; IF PO NOT WORK Albuterol/Ipratropium (Duoneb -) 1 amp NEB Q6H PRN PRN Reason: SHORTNESS OF BREATH Atorvastatin Calcium (Lipitor -) 40 mg PO HS [facility] Last Admin: 11/10/18 21:01 Dose: 40 mg Ferrous Sulfate (Feosol -) 325 mg PO DAILY [facility] Last Admin: 11/11/18 09:46 Dose: 325 mg Aztreonam 1 gm/ Dextrose 50 mls @ 100 mls/hr IVPB Q8H-IV [facility] Last Admin: 11/11/18 09:46 Dose: 100 mls/hr Ferric Carboxymaltose 750 mg/ (Sodium Chloride) 265 mls @ 530 mls/hr IVPB ONCE ONE Stop: 11/11/18 10:32 Insulin Aspart (Novolog Vial Sliding Scale -) 1 vial SQ [facility]; Protocol Last Admin: 11/11/18 06:45 Dose: Not Given Metoprolol Succinate (Toprol Xl -) 50 mg PO DAILY [facility] Last Admin: 11/11/18 09:47 Dose: 50 mg Non-Formulary Medication (Linaclotide [Linzess]) 145 mcg PO DAILY [facility] Ondansetron HCl (Zofran Injection) 4 mg IVPUSH Q6H PRN PRN Reason: NAUSEA Pantoprazole Sodium (Protonix Iv) 40 mg IVPUSH BID [facility] Last Admin: 11/11/18 09:48 Dose: 40 mg Polyethylene Glycol (Miralax (For Daily Use) -) 17 gm PO DAILY [facility] Last Admin: 11/11/18 09:48 Dose: Not Given Senna (Senna -) 1 tab PO BID [facility] Last Admin: 11/11/18 09:46 Dose: Not Given - Objective Vital Signs: Vital Signs Temperature 98.5 F 11/11/18 06:46 Pulse Rate 67 11/11/18 08:00 Respiratory Rate 19 11/11/18 08:00 Blood Pressure 194/91 H 11/11/18 08:00 O2 Sat by Pulse Oximetry (%) 98 11/10/18 20:09 Constitutional: Yes: No Distress Cardiovascular: Yes: Regular Rate and Rhythm Respiratory: Yes: Regular Gastrointestinal: Yes: Soft Genitourinary: Yes: WNL Musculoskeletal: Yes: Back Pain Edema: Yes Neurological: Yes: WNL Labs: CBC, BMP 11/11/18 05:50 11/11/18 05:50 INR, PTT INR 1.18 (0.83-1.09) H 11/06/18 08:42 INR 1.16 (0.83-1.09) H 11/08/18 09:10 Problem List - Problems (1) Diabetes 1.5, managed as type 1 Code(s): E13.9 - OTHER SPECIFIED DIABETES MELLITUS WITHOUT COMPLICATIONS (2) Dyspnea on exertion Code(s): R06.09 - OTHER FORMS OF DYSPNEA (3) Elevated troponin I level Code(s): R74.8 - ABNORMAL LEVELS OF OTHER SERUM ENZYMES (4) Fever Code(s): R50.9 - FEVER, UNSPECIFIED (5) Sepsis Code(s): A41.9 - SEPSIS, UNSPECIFIED ORGANISM (6) Acute hypoxemic respiratory failure Code(s): J96.01 - ACUTE RESPIRATORY FAILURE WITH HYPOXIA (7) Diabetes mellitus with hyperglycemia, with long-term current use of insulin Code(s): E11.65 - TYPE 2 DIABETES MELLITUS WITH HYPERGLYCEMIA; Z79.4 - STRIKER OUT (CURRENT) USE OF INSULIN (8) GI bleed Code(s): K92.2 - GASTROINTESTINAL HEMORRHAGE, UNSPECIFIED (9) Hypertension Code(s): I10 - ESSENTIAL (PRIMARY) HYPERTENSION (10) Pneumonia Code(s): J18.9 - PNEUMONIA, UNSPECIFIED ORGANISM Qualifiers: Pneumonia type: due to unspecified organism Laterality: bilateral Lung location: unspecified part of lung Qualified Code(s): J18.9 - Pneumonia, unspecified organism (11) Proteinuria Code(s): R80.9 - PROTEINURIA, UNSPECIFIED (12) Shortness of breath Code(s): R06.02 - SHORTNESS OF BREATH Assessment/Plan BM BX MONDAY MONITOR H/H NO LABS ORDERED FOR TOMORROW CHECK CBC MONDAY DVT PROPHYLAXIS OOB TO CHAIR
--- NOTE | 2018-11-11 10:07 | PN ---
Teaching Attending Note Name of Resident: Kaci Herrera ATTENDING PHYSICIAN STATEMENT I saw and evaluated the patient. I reviewed the resident's note and discussed the case with the resident. I agree with the resident's findings and plan as documented. SUBJECTIVE: Patient seen and examined in the ICU. Awake and alert. OOB to chair. H & H improved. Denies CP or SOB. No Abdominal pain. Intake & Output 11/08/18 11/09/18 11/10/18 11/11/18 23:59 23:59 23:59 23:59 Intake Total 2815 2883 640 150 Output Total 1350 1150 Balance 1465 1733 640 150 Weight 246 lb 248 lb 3.848 oz 248 lb 3.848 oz Last Vital Signs Temp Pulse Resp BP Pulse Ox 98.5 F 67 19 194/91 H 98 11/11/18 06:46 11/11/18 08:00 11/11/18 08:00 11/11/18 08:00 11/10/18 20:09 Active Medications Acetaminophen (Tylenol -) 650 mg PO Q6H PRN PRN Reason: FEVER Acetaminophen (Ofirmev Injection -) 1,000 mg IVPB Q6H PRN PRN Reason: FEVER; IF PO NOT WORK Albuterol/Ipratropium (Duoneb -) 1 amp NEB Q6H PRN PRN Reason: SHORTNESS OF BREATH Atorvastatin Calcium (Lipitor -) 40 mg PO HS [facility] Last Admin: 11/10/18 21:01 Dose: 40 mg Ferrous Sulfate (Feosol -) 325 mg PO DAILY [facility] Last Admin: 11/11/18 09:46 Dose: 325 mg Aztreonam 1 gm/ Dextrose 50 mls @ 100 mls/hr IVPB Q8H-IV [facility] Last Admin: 11/11/18 09:46 Dose: 100 mls/hr Ferric Carboxymaltose 750 mg/ (Sodium Chloride) 265 mls @ 530 mls/hr IVPB ONCE ONE Stop: 11/11/18 10:32 Insulin Aspart (Novolog Vial Sliding Scale -) 1 vial SQ ACHS [facility]; Protocol Last Admin: 11/11/18 06:45 Dose: Not Given Losartan Potassium (Cozaar -) 50 mg PO ONCE ONE Stop: 11/11/18 10:05 Losartan Potassium (Cozaar -) 50 mg PO DAILY [facility] Metoprolol Succinate (Toprol Xl -) 50 mg PO DAILY [facility] Last Admin: 11/11/18 09:47 Dose: 50 mg Non-Formulary Medication (Linaclotide [Linzess]) 145 mcg PO DAILY [facility] Ondansetron HCl (Zofran Injection) 4 mg IVPUSH Q6H PRN PRN Reason: NAUSEA Pantoprazole Sodium (Protonix Iv) 40 mg IVPUSH BID [facility] Last Admin: 11/11/18 09:48 Dose: 40 mg Polyethylene Glycol (Miralax (For Daily Use) -) 17 gm PO DAILY [facility] Last Admin: 11/11/18 09:48 Dose: Not Given Senna (Senna -) 1 tab PO BID [facility] Last Admin: 11/11/18 09:46 Dose: Not Given GENERAL: Awake and responsive, exam is non-focal. HEAD: Normocephalic, atraumatic. EYES:sclera anicteric. EARS, NOSE, THROAT: Oropharynx clear without exudates. Dry mucous membranes. NECK: Supple without lymphadenopathy, or JVD. LUNGS: Breath sounds equal, clear to auscultation bilaterally. No wheezes, and no crackles. No accessory muscle use. HEART: Regular rate and rhythm, normal S1 and S2 without murmur, rub or gallop. ABDOMEN: Obese abdomen. Soft, distended, diffusely tender to palpation x4 quadrants. Normoactive bowel sounds x4 quadrants. No guarding, no rebound tenderness. MUSCULOSKELETAL: Normal range of motion at all joints. Moves all 4 extremities equally. EXTREMITIES: 2+ radial, dorsalis pedis pulses bilaterally, warm, well-perfused. No peripheral edema. NEUROLOGICAL: Awake and alert, non-focal exam. SKIN: Warm, dry. Laboratory Results - last 24 hr 11/07/18 11/09/18 11/10/18 09:30 12:58 11:12 WBC RBC Hgb Hct MCV MCH MCHC RDW Plt Count MPV Sodium Potassium Chloride Carbon Dioxide Anion Gap BUN Creatinine Est GFR (CKD-EPI)AfAm Est GFR (CKD-EPI)NonAf POC Glucometer 288 Random Glucose Calcium Phosphorus Magnesium Serum MALLIKA Interpret IEP IgG 933 IEP IgA 329 IEP IgM 24 L Blood Type O POSITIVE Antibody Screen Negative Crossmatch See Detail 11/10/18 11/10/18 11/11/18 16:39 19:49 05:50 WBC 6.4 RBC 3.54 L Hgb 10.1 L Hct 30.8 L MCV 86.9 MCH 28.4 MCHC 32.7 RDW 16.8 H Plt Count 196 MPV 10.3 Sodium Potassium Chloride Carbon Dioxide Anion Gap BUN Creatinine Est GFR (CKD-EPI)AfAm Est GFR (CKD-EPI)NonAf POC Glucometer 196 185 Random Glucose Calcium Phosphorus Magnesium Serum MALLIKA Interpret IEP IgG IEP IgA IEP IgM Blood Type Antibody Screen Crossmatch 11/11/18 11/11/18 05:50 06:06 WBC RBC Hgb Hct MCV MCH MCHC RDW Plt Count MPV Sodium 143 Potassium 4.6 Chloride 110 H Carbon Dioxide 27 Anion Gap 5 L BUN 22.6 H Creatinine 1.1 Est GFR (CKD-EPI)AfAm 59.32 Est GFR (CKD-EPI)NonAf 51.18 POC Glucometer 170 Random Glucose 190 H Calcium 8.6 Phosphorus 3.2 Magnesium 2.3 Serum MALLIKA Interpret IEP IgG IEP IgA IEP IgM Blood Type Antibody Screen Crossmatch ASSESSMENT/PLAN: Suspected vasovagal syncopal episode R/O Sepsis Normocytic Anemia Troponinemia Coronary artery disease s/p stent (04/2017) Diabetes mellitus Asthma Sleep apnea Hypertension Hyperlipidemia PO as tolerated Aspiration precautions O2 as needed Glycemic control Continue cardiac meds ABX coverage per ID Follow I & O Normal transfusion thresholds: Hgb 8 Will need formal reassessment of OSAS after discharge 4W / 4S monitoring Dr Amaro
--- NOTE | 2018-11-11 10:09 | PN ---
Physical Exam: SUBJECTIVE: Patient seen and examined at the bedside. There were no acute events overnight. Patient states she is feeling better but has not yet had a BM. Have ordered senna, which the patient takes at home, and will get her some prune juice to see if that helps. OBJECTIVE: Vital Signs Period Temp Pulse Resp BP Sys/Lee Pulse Ox Last 24 Hr 98 F-99 F 64-72 16-21 160-194/64-91 98 GENERAL: awake, alert and oriented to person, place time. HEAD: Normocephalic, atraumatic. EYES: Pupils equal, round and reactive to light, extraocular movements intact, sclera anicteric. NECK: Supple without lymphadenopathy, or JVD. LUNGS: Breath sounds equal, clear to auscultation bilaterally. No wheezes, and no crackles. No accessory muscle use. HEART: Regular rate and rhythm, normal S1 and S2 without murmur, rub or gallop. ABDOMEN: Obese abdomen. Soft, distended, non-tender to palpation. Normoactive bowel sounds x4 quadrants. No guarding, no rebound tenderness. MUSCULOSKELETAL: Normal range of motion at all joints. Moves all 4 extremities equally. EXTREMITIES: 2+ radial, dorsalis pedis pulses bilaterally, warm, well-perfused. No peripheral edema. NEUROLOGICAL: Cranial nerves II-XII intact. No gross focal deficits. PSYCHIATRIC: Normal mood and affect. SKIN: Warm, dry. Laboratory Results - last 24 hr 11/07/18 11/09/18 11/10/18 09:30 12:58 11:12 WBC RBC Hgb Hct MCV MCH MCHC RDW Plt Count MPV Sodium Potassium Chloride Carbon Dioxide Anion Gap BUN Creatinine Est GFR (CKD-EPI)AfAm Est GFR (CKD-EPI)NonAf POC Glucometer 288 Random Glucose Calcium Phosphorus Magnesium Serum MALLIKA Interpret IEP IgG 933 IEP IgA 329 IEP IgM 24 L Blood Type O POSITIVE Antibody Screen Negative Crossmatch See Detail 11/10/18 11/10/18 11/11/18 16:39 19:49 05:50 WBC 6.4 RBC 3.54 L Hgb 10.1 L Hct 30.8 L MCV 86.9 MCH 28.4 MCHC 32.7 RDW 16.8 H Plt Count 196 MPV 10.3 Sodium Potassium Chloride Carbon Dioxide Anion Gap BUN Creatinine Est GFR (CKD-EPI)AfAm Est GFR (CKD-EPI)NonAf POC Glucometer 196 185 Random Glucose Calcium Phosphorus Magnesium Serum MALLIKA Interpret IEP IgG IEP IgA IEP IgM Blood Type Antibody Screen Crossmatch 11/11/18 11/11/18 05:50 06:06 WBC RBC Hgb Hct MCV MCH MCHC RDW Plt Count MPV Sodium 143 Potassium 4.6 Chloride 110 H Carbon Dioxide 27 Anion Gap 5 L BUN 22.6 H Creatinine 1.1 Est GFR (CKD-EPI)AfAm 59.32 Est GFR (CKD-EPI)NonAf 51.18 POC Glucometer 170 Random Glucose 190 H Calcium 8.6 Phosphorus 3.2 Magnesium 2.3 Serum MALLIKA Interpret IEP IgG IEP IgA IEP IgM Blood Type Antibody Screen Crossmatch Active Medications Generic Name Dose Route Start Last Admin Trade Name Freq PRN Reason Stop Dose Admin Acetaminophen 650 mg 11/09/18 19:58 Tylenol - PO Q6H PRN FEVER Acetaminophen 1,000 mg 11/09/18 19:58 Ofirmev Injection - IVPB Q6H PRN FEVER; IF PO NOT WORK Albuterol/Ipratropium 1 amp 11/09/18 19:58 Duoneb - NEB Q6H PRN SHORTNESS OF BREATH Atorvastatin Calcium 40 mg 11/09/18 22:00 11/10/18 21:01 Lipitor - PO 40 mg HS [facility] Administration Ferrous Sulfate 325 mg 11/10/18 10:00 11/11/18 09:46 Feosol - PO 325 mg DAILY [facility] Administration Aztreonam 1 gm/ Dextrose 50 mls @ 100 mls/hr 11/10/18 02:00 11/11/18 09:46 IVPB 100 mls/hr Q8H-IV [facility] Administration Ferric Carboxymaltose 750 mg/ 265 mls @ 530 mls/hr 11/11/18 10:03 Sodium Chloride IVPB 11/11/18 10:32 ONCE ONE Insulin Aspart 1 vial 11/09/18 22:00 11/11/18 06:45 Novolog Vial Sliding Scale - SQ Not Given ACHS [facility] Protocol Losartan Potassium 50 mg 11/11/18 10:04 Cozaar - PO 11/11/18 10:05 ONCE ONE Losartan Potassium 50 mg 11/12/18 10:00 Cozaar - PO DAILY [facility] Metoprolol Succinate 50 mg 11/10/18 10:00 11/11/18 09:47 Toprol Xl - PO 50 mg DAILY [facility] Administration Non-Formulary Medication 145 mcg 11/10/18 10:00 Linaclotide [Linzess] PO DAILY [facility] Ondansetron HCl 4 mg 11/09/18 19:58 Zofran Injection IVPUSH Q6H PRN NAUSEA Pantoprazole Sodium 40 mg 11/09/18 22:00 11/11/18 09:48 Protonix Iv IVPUSH 40 mg BID [facility] Administration Polyethylene Glycol 17 gm 11/10/18 10:00 11/11/18 09:48 Miralax (For Daily Use) - PO Not Given DAILY [facility] Senna 1 tab 11/10/18 10:00 11/11/18 09:46 Senna - PO Not Given BID [facility] ASSESSMENT/PLAN: Keily Shukla is a 68 year old female with history of coronary artery disease ( s/p stent 04/2017), chronic anemia, diabetes mellitus, hypertension, hyperlipidemia presented with complaint of fevers, chills dysuria, admitted for urosepsis and treated with Levofloxacin, and Aztreonam and was admitted to the ICU after a [employer] was called to the floor when the patient was found unresponsive likely secondary to a vaso-vagal episode in the setting of anemia. Syncopal episode Sepsis Normocytic Anemia Troponinemia Coronary artery disease s/p stent (04/2017) Diabetes mellitus Asthma Sleep apnea Hypertension Hyperlipidemia Neurologic -Syncopal episode, event was witnessed and no trauma to head. Likely vasovagal. -currently oriented x3 -anxious mood at times -Xanax bid prn Cardiac -Troponin peaked at 1.57, likely in setting of demand ischemia (Type II ND). Repeat troponin was 1.02, downtrending. -Aspirin held by primary team in setting of anemia. -Will not administer full dose heparin/ plavix at this time given anemia and patient is not presenting with ACS -Transthorasic ECHO reveals EF 60%. LV and RV size, function normal -Metoprolol 50mg PO daily -Lipitor 40mg PO qHS -Patient has history of chronic diastolic CHF: in the past felt likely due to severe anemia, high output in the setting LV diastolic dysfunction. -can use Lasix prn -Cardiac monitoring while in ICU -Cardiology recommendations (Dr. Trevino) appreciated Pulmonary -Currently, patient saturating well on room air -Maintain oxygen saturation greater than 90% Infectious disease -Sepsis likely secondary to UTI, has remained afebrile for last 24 hours -UA reveals turbid yellow urine, with protein, glucose, blood, nitirites, leukocyte esterase -Aztreonam 1 gram IV Q8 hours (day #7), continue as bactrim not good in setting of patient's renal disease -blood cxs negative -urine cultures growing marie sensitive E.coli -ID recommendations (Dr. Mata) appreciated Gastrointestinal -Patient with no vomiting, but some nausea -Per nursing staff, no hematemesis, hematochezia, melenic bowel movements. -Patient refuses rectal exam -Protonix drip initiated by primary team due to concern for GI bleeding -Zofran -CT abdomen, pelvis without evidence of retroperitoneal bleeding or hematoma. -GI recommendations (Dr. Kennedy) appreciated. -no further evidence of bleeding or drop in Hgb (stable at 10.1 today) -miralax and senna for constipation -prune juice Hematologic -Normocytic anemia likely secondary to occult GI bleeding -Continue to follow CBC, transfuse for Hb <7 (goal Hb 8) -Received total 4 units -today Hgb 10.1, stable for last 24 hours -iron studies showing likely anemia of chronic disease -reticulocytes in normal range, likely not producing new red cells in light of bleed/anemia, unknown reason for myelosuppression -Hematology recommendations (Dr. Graham) appreciated. -to go for bone marrow biopsy on Monday -protein studies and flow cytometry pending Endocrine -Insulin sliding scale ACHS -Fingerstick blood glucose monitoring ACHS FEN -no standing fluids -continue to monitor electrolytes and replete as necessary -upgrade to full liquid diabetic diet CODE -full code Disposition: - stable for transfer to telemetry Visit type - Emergency Visit Emergency Visit: Yes ED Registration Date: 11/05/18 Care time: The patient presented to the Emergency Department on the above date and was hospitalized for further evaluation of their emergent condition. - New Patient This patient is new to me today: No - Critical Care Critical Care patient: Yes Total Critical Care Time (in minutes): 40 Critical Care Statement: The care of this patient involved high complexity decision making to prevent further life threatening deterioration of the patient 's condition and/or to evaluate & treat vital organ system(s) failure or risk of failure. ATTENDING PHYSICIAN STATEMENT I saw and evaluated the patient. I reviewed the resident's note and discussed the case with the resident. I agree with the resident's findings and plan as documented. SUBJECTIVE: OBJECTIVE: ASSESSMENT AND PLAN:
[2018-11-11] MEDS ORDERED: PT OWN MED DRAWER 7, Y5N ONE (10:38)
[2018-11-11] MEDS ORDERED: FERRIC CARBOXYMALTOSE 750 MG in SODIUM CHLORIDE 250 ML IVPB ONE (11:00)
[2018-11-11] MEDS ORDERED: ACETAMINOPHEN 1000 MG/100 ML VIAL (NON FORMULARY) IVPB PRN (12:27)
[2018-11-11] MEDS ORDERED: ONDANSETRON 4 MG/2 ML VIAL IVPUSH PRN (12:27)
[2018-11-11] MEDS ORDERED: ALBUTEROL SO4 2.5/IPRATROPIUM 0.5 INH SOL 3 ML VIAL.NEB. NEB PRN (12:27)
[2018-11-11] MEDS ORDERED: ACETAMINOPHEN 325 MG TABLET (FP) PO PRN (12:27)
[2018-11-11] MEDS: ATORVASTATIN CA 40 MG TABLET (FP) PO SCH (21:45)
[2018-11-12] MEDS ORDERED: DEXTROSE 5%-WATER - 50 ML IVPB ONE ×3 (02:09→17:22)
[2018-11-12] MEDS ORDERED: AZTREONAM 1 GM VIAL (RESTRICTED TO ID) ONE ×3 (02:09→17:22)
[2018-11-12] MEDS: AZTREONAM 1 GM in DEXTROSE 5%-WATER - 50 ML IVPB SCH ×3 (03:45→18:16)
[2018-11-12] MEDS: INSULIN SLIDING SCALE (NOVOLOG) 1 VIAL SQ SCH ×4 (06:35→22:18)
[2018-11-12 08:19] LABS: HEMATOCRIT 31.9 % (32.4-45.2); HEMOGLOBIN 10.5 GM/dL (10.7-15.3); MCH 28.4 pg (25.7-33.7); MCHC 32.8 g/dl (32.0-36.0); MEAN CELL VOLUME 86.5 fl (80-96); PLATELET COUNT 231 K/MM3 (134-434); RBC 3.68 M/mm3 (3.60-5.2); RDW 17.1 % (11.6-15.6); WHITE BLOOD COUNT 7.4 K/mm3 (4.0-10.0)
[2018-11-12] MEDS ORDERED: PT OWN MED DRAWER 7, Y5N ONE (09:07)
[2018-11-12] MEDS: PANTOPRAZOLE SODIUM 40 MG VIAL IVPUSH SCH ×2 (09:19→22:16)
[2018-11-12] MEDS: LOSARTAN POTASSIUM 50 MG TABLET (FP) PO SCH (09:20)
[2018-11-12] MEDS: POLYETHYLENE GLYCOL 3350 119 GM BTL PO SCH (09:20)
[2018-11-12] MEDS: SENNOSIDES 8.6MG TABLET (FP) PO SCH ×2 (09:20→22:16)
[2018-11-12] MEDS ORDERED: FERROUS SO4 325 MG TABLET (FP) PO SCH (10:00)
[2018-11-12] MEDS ORDERED: PATIENT'S OWN MEDICATION (NON-FORMULARY) (Linaclotide [Linzess] 145 MCG) PO SCH (10:00)
--- NOTE | 2018-11-12 10:32 | PN ---
Progress Note, Physician History of Present Illness: PULMONARY ALERT,COMFORTABLE,-SOB,-CP - Current Medication List Current Medications: Active Medications Acetaminophen (Tylenol -) 650 mg PO Q6H PRN PRN Reason: FEVER Acetaminophen (Ofirmev Injection -) 1,000 mg IVPB Q6H PRN PRN Reason: FEVER; IF PO NOT WORK Albuterol/Ipratropium (Duoneb -) 1 amp NEB Q6H PRN PRN Reason: SHORTNESS OF BREATH Atorvastatin Calcium (Lipitor -) 40 mg PO HS [facility] Last Admin: 11/11/18 21:45 Dose: 40 mg Ferrous Sulfate (Feosol -) 325 mg PO DAILY [facility] Last Admin: 11/12/18 09:19 Dose: 325 mg Aztreonam 1 gm/ Dextrose 50 mls @ 100 mls/hr IVPB Q8H-IV [facility] Last Admin: 11/12/18 09:19 Dose: 100 mls/hr Insulin Aspart (Novolog Vial Sliding Scale -) 1 vial SQ ACHS [facility]; Protocol Last Admin: 11/12/18 06:35 Dose: Not Given Losartan Potassium (Cozaar -) 50 mg PO DAILY [facility] Last Admin: 11/12/18 09:20 Dose: 50 mg Metoprolol Succinate (Toprol Xl -) 50 mg PO DAILY [facility] Last Admin: 11/12/18 09:19 Dose: 50 mg Non-Formulary Medication (Linaclotide [Linzess]) 145 mcg PO DAILY [facility] Ondansetron HCl (Zofran Injection) 4 mg IVPUSH Q6H PRN PRN Reason: NAUSEA Pantoprazole Sodium (Protonix Iv) 40 mg IVPUSH BID [facility] Last Admin: 11/12/18 09:19 Dose: 40 mg Polyethylene Glycol (Miralax (For Daily Use) -) 17 gm PO DAILY [facility] Last Admin: 11/12/18 09:20 Dose: Not Given Senna (Senna -) 1 tab PO BID [facility] Last Admin: 11/12/18 09:20 Dose: 1 tab - Objective Vital Signs: Vital Signs Temperature 98 F 11/12/18 02:00 Pulse Rate 68 11/12/18 05:30 Respiratory Rate 20 11/12/18 07:46 Blood Pressure 132/48 L 11/12/18 05:30 O2 Sat by Pulse Oximetry (%) 98 08/19/19 07:46 Constitutional: Yes: Calm, Obese Eyes: Yes: WNL HENT: Yes: WNL Neck: Yes: WNL Cardiovascular: Yes: Regular Rate and Rhythm, S1, S2 Respiratory: Yes: Diminished Gastrointestinal: Yes: Normal Bowel Sounds, Soft Extremities: Yes: WNL Edema: No Labs: CBC, BMP 11/12/18 06:30 11/11/18 05:50 INR, PTT INR 1.18 (0.83-1.09) H 11/06/18 08:42 INR 1.16 (0.83-1.09) H 11/08/18 09:10 Problem List - Problems (1) Diabetes 1.5, managed as type 1 Code(s): E13.9 - OTHER SPECIFIED DIABETES MELLITUS WITHOUT COMPLICATIONS (2) Elevated troponin I level Code(s): R74.8 - ABNORMAL LEVELS OF OTHER SERUM ENZYMES (3) HORACE (acute kidney injury) Code(s): N17.9 - ACUTE KIDNEY FAILURE, UNSPECIFIED (4) Anemia Code(s): D64.9 - ANEMIA, UNSPECIFIED Qualifiers: Anemia type: unspecified type Qualified Code(s): D64.9 - Anemia, unspecified (5) CAD (coronary artery disease) Code(s): I25.10 - ATHSCL HEART DISEASE OF [place] CORONARY ARTERY W/O ANG PCTRS (6) CKD (chronic kidney disease) Code(s): N18.9 - CHRONIC KIDNEY DISEASE, UNSPECIFIED (7) COPD (chronic obstructive pulmonary disease) Code(s): J44.9 - CHRONIC OBSTRUCTIVE PULMONARY DISEASE, UNSPECIFIED (8) HLD (hyperlipidemia) Code(s): E78.5 - HYPERLIPIDEMIA, UNSPECIFIED (9) Shortness of breath Code(s): R06.02 - SHORTNESS OF BREATH (10) Sleep apnea Code(s): G47.30 - SLEEP APNEA, UNSPECIFIED (11) UTI (urinary tract infection) Code(s): N39.0 - URINARY TRACT INFECTION, SITE NOT SPECIFIED Assessment/Plan ASSESSMENT/PLAN: Suspected vasovagal syncopal episode R/O Sepsis Normocytic Anemia Troponinemia Coronary artery disease s/p stent (04/2017) Diabetes mellitus Asthma Sleep apnea Hypertension Hyperlipidemia O2 as needed Glycemic control Continue cardiac meds ABX coverage per ID Follow I & O Normal transfusion thresholds Will need formal reassessment of [facility] after discharge DR MANN
--- NOTE | 2018-11-12 13:25 | PN ---
Progress Note, Physician History of Present Illness: Pt seen and examined at bedside. She is awake and alert. She says that she feels better today. - Current Medication List Current Medications: Active Medications Acetaminophen (Tylenol -) 650 mg PO Q6H PRN PRN Reason: FEVER Acetaminophen (Ofirmev Injection -) 1,000 mg IVPB Q6H PRN PRN Reason: FEVER; IF PO NOT WORK Albuterol/Ipratropium (Duoneb -) 1 amp NEB Q6H PRN PRN Reason: SHORTNESS OF BREATH Atorvastatin Calcium (Lipitor -) 40 mg PO HS [facility] Last Admin: 11/11/18 21:45 Dose: 40 mg Ferrous Sulfate (Feosol -) 325 mg PO DAILY [facility] Last Admin: 11/12/18 09:19 Dose: 325 mg Aztreonam 1 gm/ Dextrose 50 mls @ 100 mls/hr IVPB Q8H-IV [facility] Last Admin: 11/12/18 09:19 Dose: 100 mls/hr Insulin Aspart (Novolog Vial Sliding Scale -) 1 vial SQ ACHS [facility]; Protocol Last Admin: 11/12/18 06:35 Dose: Not Given Losartan Potassium (Cozaar -) 50 mg PO DAILY [facility] Last Admin: 11/12/18 09:20 Dose: 50 mg Metoprolol Succinate (Toprol Xl -) 50 mg PO DAILY [facility] Last Admin: 11/12/18 09:19 Dose: 50 mg Non-Formulary Medication (Linaclotide [Linzess]) 145 mcg PO DAILY [facility] Ondansetron HCl (Zofran Injection) 4 mg IVPUSH Q6H PRN PRN Reason: NAUSEA Pantoprazole Sodium (Protonix Iv) 40 mg IVPUSH BID [facility] Last Admin: 11/12/18 09:19 Dose: 40 mg Polyethylene Glycol (Miralax (For Daily Use) -) 17 gm PO DAILY [facility] Last Admin: 11/12/18 09:20 Dose: Not Given Senna (Senna -) 1 tab PO BID [facility] Last Admin: 11/12/18 09:20 Dose: 1 tab - Objective Vital Signs: Vital Signs Temperature 98 F 11/12/18 02:00 Pulse Rate 68 11/12/18 05:30 Respiratory Rate 20 11/12/18 07:46 Blood Pressure 132/48 L 11/12/18 05:30 O2 Sat by Pulse Oximetry (%) 98 08/19/19 07:46 Constitutional: Yes: Calm Eyes: Yes: Conjunctiva Clear HENT: Yes: Atraumatic Neck: Yes: Supple Cardiovascular: Yes: S1, S2 Respiratory: Yes: CTA Bilaterally Gastrointestinal: Yes: Normal Bowel Sounds, Soft, Abdomen, Obese Genitourinary: Yes: WNL Musculoskeletal: Yes: WNL Edema: Yes Edema: LLE: 1+, RLE: 1+ Integumentary: Yes: WNL Neurological: Yes: Oriented Psychiatric: Yes: Oriented Labs: CBC, BMP 11/12/18 06:30 11/11/18 05:50 INR, PTT INR 1.18 (0.83-1.09) H 11/06/18 08:42 INR 1.16 (0.83-1.09) H 11/08/18 09:10 Problem List - Problems (1) Fever Code(s): R50.9 - FEVER, UNSPECIFIED (2) Sepsis Code(s): A41.9 - SEPSIS, UNSPECIFIED ORGANISM Assessment/Plan Current Medications Generic Name Dose Route Start Last Admin Trade Name Freq PRN Reason Stop Dose Admin Acetaminophen 650 mg 11/11/18 12:27 Tylenol - PO Q6H PRN FEVER Acetaminophen 1,000 mg 11/11/18 12:27 Ofirmev Injection - IVPB Q6H PRN FEVER; IF PO NOT WORK Albuterol/Ipratropium 1 amp 11/11/18 12:27 Duoneb - NEB Q6H PRN SHORTNESS OF BREATH Atorvastatin Calcium 40 mg 11/11/18 22:00 11/11/18 21:45 Lipitor - PO 40 mg HS [facility] Administration Ferrous Sulfate 325 mg 11/12/18 10:00 11/12/18 09:19 Feosol - PO 325 mg DAILY [facility] Administration Aztreonam 1 gm/ Dextrose 50 mls @ 100 mls/hr 11/11/18 18:00 11/12/18 09:19 IVPB 100 mls/hr Q8H-IV [facility] Administration Insulin Aspart 1 vial 11/11/18 16:30 11/12/18 06:35 Novolog Vial Sliding Scale - SQ Not Given ACHS [facility] Protocol Losartan Potassium 50 mg 11/12/18 10:00 11/12/18 09:20 Cozaar - PO 50 mg DAILY [facility] Administration Metoprolol Succinate 50 mg 11/12/18 10:00 11/12/18 09:19 Toprol Xl - PO 50 mg DAILY [facility] Administration Non-Formulary Medication 145 mcg 11/12/18 10:00 Linaclotide [Linzess] PO DAILY [facility] Ondansetron HCl 4 mg 11/11/18 12:27 Zofran Injection IVPUSH Q6H PRN NAUSEA Pantoprazole Sodium 40 mg 11/11/18 22:00 11/12/18 09:19 Protonix Iv IVPUSH 40 mg BID [facility] Administration Polyethylene Glycol 17 gm 11/12/18 10:00 11/12/18 09:20 Miralax (For Daily Use) - PO Not Given DAILY [facility] Senna 1 tab 11/11/18 22:00 11/12/18 09:20 Senna - PO 1 tab BID [facility] Administration Impression 1. CKD 2. proteinuria 3. elevated kappa chains with abnormal ratio 4. symptomatic anemia 5. DM 6. obesity 7. cad 8. chf 9. hx of positive mallory Plan - pt will get bone marrow - monitor hg - renal function is stable - pt is tolerating diet - discusses with family at bedside
--- NOTE | 2018-11-12 13:51 | PN ---
Progress Note (short form) - Note Progress Note: transferred to the floor for bone marrow biopsy Vital Signs Period Temp Pulse Resp BP Sys/Lee Pulse Ox Last 24 Hr 97.8 F-98.4 F 68-75 20-22 132-183/48-96 98-98 cor-rrr lungs clear abd soft,nt ext no edema CBC, BMP 11/12/18 06:30 11/11/18 05:50 Microbiology 11/07/18 12:50 Blood - Peripheral Venous Blood Culture - Final NO GROWTH AFTER 5 DAYS INCUBATION 11/07/18 11:21 Blood - Peripheral Venous Blood Culture - Final NO GROWTH AFTER 5 DAYS INCUBATION 11/05/18 21:00 Blood - Arterial Blood Culture - Final NO GROWTH AFTER 5 DAYS INCUBATION 11/05/18 21:00 Blood - Arterial Blood Culture - Final NO GROWTH AFTER 5 DAYS INCUBATION 11/05/18 12:55 Urine - Urine Clean Catch Urine Culture - Final Escherichia Coli a/p syncope- most likely secondary to anemia s/p transfusion per gi /hematology fevers/chills- resolved ecoli uti marie sensitive-day #7 antibiotics can d/c antibiotics in am DM CAD with positive troponins penicillin allergy Problem List - Problems (1) Fever Code(s): R50.9 - FEVER, UNSPECIFIED (2) UTI (urinary tract infection) Code(s): N39.0 - URINARY TRACT INFECTION, SITE NOT SPECIFIED (3) Elevated troponin I level Code(s): R74.8 - ABNORMAL LEVELS OF OTHER SERUM ENZYMES (4) HORACE (acute kidney injury) Code(s): N17.9 - ACUTE KIDNEY FAILURE, UNSPECIFIED (5) DM2 (diabetes mellitus, type 2) Code(s): E11.9 - TYPE 2 DIABETES MELLITUS WITHOUT COMPLICATIONS (6) Penicillin allergy Code(s): Z88.0 - ALLERGY STATUS TO PENICILLIN (7) Anemia Code(s): D64.9 - ANEMIA, UNSPECIFIED Qualifiers: Anemia type: unspecified type Qualified Code(s): D64.9 - Anemia, unspecified
--- NOTE | 2018-11-12 14:27 | PN ---
Progress Note, Physician Chief Complaint: patient seen and examined awaiting bone marrow biopsy - Current Medication List Current Medications: Active Medications Acetaminophen (Tylenol -) 650 mg PO Q6H PRN PRN Reason: FEVER Acetaminophen (Ofirmev Injection -) 1,000 mg IVPB Q6H PRN PRN Reason: FEVER; IF PO NOT WORK Albuterol/Ipratropium (Duoneb -) 1 amp NEB Q6H PRN PRN Reason: SHORTNESS OF BREATH Atorvastatin Calcium (Lipitor -) 40 mg PO HS [facility] Last Admin: 11/11/18 21:45 Dose: 40 mg Ferrous Sulfate (Feosol -) 325 mg PO DAILY [facility] Last Admin: 11/12/18 09:19 Dose: 325 mg Aztreonam 1 gm/ Dextrose 50 mls @ 100 mls/hr IVPB Q8H-IV [facility] Last Admin: 11/12/18 09:19 Dose: 100 mls/hr Insulin Aspart (Novolog Vial Sliding Scale -) 1 vial SQ ACHS [facility]; Protocol Last Admin: 11/12/18 13:27 Dose: 4 units Losartan Potassium (Cozaar -) 50 mg PO DAILY [facility] Last Admin: 11/12/18 09:20 Dose: 50 mg Metoprolol Succinate (Toprol Xl -) 50 mg PO DAILY [facility] Last Admin: 11/12/18 09:19 Dose: 50 mg Non-Formulary Medication (Linaclotide [Linzess]) 145 mcg PO DAILY [facility] Ondansetron HCl (Zofran Injection) 4 mg IVPUSH Q6H PRN PRN Reason: NAUSEA Pantoprazole Sodium (Protonix Iv) 40 mg IVPUSH BID [facility] Last Admin: 11/12/18 09:19 Dose: 40 mg Polyethylene Glycol (Miralax (For Daily Use) -) 17 gm PO DAILY [facility] Last Admin: 11/12/18 09:20 Dose: Not Given Senna (Senna -) 1 tab PO BID [facility] Last Admin: 11/12/18 09:20 Dose: 1 tab - Objective Vital Signs: Vital Signs Temperature 98 F 11/12/18 02:00 Pulse Rate 68 11/12/18 05:30 Respiratory Rate 20 11/12/18 07:46 Blood Pressure 132/48 L 11/12/18 05:30 O2 Sat by Pulse Oximetry (%) 98 11/12/18 07:46 Constitutional: Yes: Calm Cardiovascular: Yes: Regular Rate and Rhythm, S1, S2 Respiratory: Yes: Diminished Gastrointestinal: Yes: Normal Bowel Sounds, Soft Labs: CBC, BMP 11/12/18 06:30 11/11/18 05:50 INR, PTT INR 1.18 (0.83-1.09) H 11/06/18 08:42 INR 1.16 (0.83-1.09) H 11/08/18 09:10 Problem List - Problems (1) UTI (urinary tract infection) Assessment/Plan: pcn allergy aztreonam last dose tonight- to complete 7 days dc abx in AM Microbiology 11/05/18 12:55 Urine - Urine Clean Catch Urine Culture - Final Escherichia Coli Code(s): N39.0 - URINARY TRACT INFECTION, SITE NOT SPECIFIED (2) Type 2 diabetes mellitus with other diabetic arthropathy Assessment/Plan: bgm hgba1c 9.1 uncontrolled endocrine consult insulin Code(s): E11.618 - TYPE 2 DIABETES MELLITUS WITH OTHER DIABETIC ARTHROPATHY (3) Dyspnea on exertion Assessment/Plan: echo normal LV and RV function cardiology consult noted troponin [id number] secondary to demand ischemia in anemia s/p prbc lasix as needed iron panel noted Code(s): R06.09 - OTHER FORMS OF DYSPNEA (4) Anemia Assessment/Plan: got iv iron heme on board to get bone marrow biopsy Code(s): D64.9 - ANEMIA, UNSPECIFIED
[2018-11-12 17:11] LABS: KAPPA LAMBDA RATIO URIN 10.75 (2.04-10.37)
--- NOTE | 2018-11-12 21:30 | PN ---
Progress Note (short form) - Note Progress Note: Patient seen and examined feels well Last Vital Signs Temp Pulse Resp BP Pulse Ox 98.1 F 69 18 145/78 98 11/12/18 10:00 11/12/18 14:00 11/12/18 14:00 11/12/18 14:00 11/12/18 07:46 Cor: RSR, No murmurs, No gallops Lungs: Clear to P&A Abd: Soft, Normal bowel sounds, No organomegaly Ext:No significant edema Abnormal Lab Results 11/09/18 11/10/18 11/12/18 17:30 05:40 06:30 Hgb 10.5 L Hct 31.9 L RDW 17.1 H Total Protein (PEP) 5.9 L Albumin (PEP) 2.7 L U Free [place] Light Ch 259.00 H U Free [place] Light Ch 24.10 H U Free [place]/Lambda 24 10.75 H Active Medications Generic Name Dose Route Start Last Admin Trade Name Freq PRN Reason Stop Dose Admin Acetaminophen 650 mg 11/11/18 12:27 Tylenol - PO Q6H PRN FEVER Acetaminophen 1,000 mg 11/11/18 12:27 Ofirmev Injection - IVPB Q6H PRN FEVER; IF PO NOT WORK Albuterol/Ipratropium 1 amp 11/11/18 12:27 Duoneb - NEB Q6H PRN SHORTNESS OF BREATH Atorvastatin Calcium 40 mg 11/11/18 22:00 11/11/18 21:45 Lipitor - PO 40 mg HS [facility] Administration Ferrous Sulfate 325 mg 11/12/18 10:00 11/12/18 09:19 Feosol - PO 325 mg DAILY [facility] Administration Aztreonam 1 gm/ Dextrose 50 mls @ 100 mls/hr 11/11/18 18:00 11/12/18 18:16 IVPB 100 mls/hr Q8H-IV [facility] Administration Insulin Aspart 1 vial 11/11/18 16:30 11/12/18 17:20 Novolog Vial Sliding Scale - SQ Not Given ACHS [facility] Protocol Losartan Potassium 50 mg 11/12/18 10:00 11/12/18 09:20 Cozaar - PO 50 mg DAILY [facility] Administration Metoprolol Succinate 50 mg 11/12/18 10:00 11/12/18 09:19 Toprol Xl - PO 50 mg DAILY [facility] Administration Non-Formulary Medication 145 mcg 11/12/18 10:00 Linaclotide [Linzess] PO DAILY [facility] Ondansetron HCl 4 mg 11/11/18 12:27 Zofran Injection IVPUSH Q6H PRN NAUSEA Pantoprazole Sodium 40 mg 11/11/18 22:00 11/12/18 09:19 Protonix Iv IVPUSH 40 mg BID [facility] Administration Polyethylene Glycol 17 gm 11/12/18 10:00 11/12/18 09:20 Miralax (For Daily Use) - PO Not Given DAILY [facility] Senna 1 tab 11/11/18 22:00 11/12/18 09:20 Senna - PO 1 tab BID [facility] Administration A/P 68 year old female, with a significant PMH of CHF, DM, CAD, HTN, HLD, anemia and asthma, who presents to the emergency department with 3 days of dizziness with dysuria and nausea. The patient also endorses 1 day of fever and chills. in ER found temp 101 and UA positive --was on levaquin/aztreonam We have been consulted for severe anemia s/p 1 unit PRBCs Anemia of chronic disease +iron deficiency Iron deficiency--saturation 16% Protein studies recently negative in09/12 to f/u for capsule ensdoscopy with dr. dominguez colonoscopy/egd negative last year s/p injectafer x2 and several units blood transfusion discussed with patient will discuss with PMD
[2018-11-12] MEDS: ATORVASTATIN CA 40 MG TABLET (FP) PO SCH (22:16)
[2018-11-13] MEDS ORDERED: AZTREONAM 1 GM VIAL (RESTRICTED TO ID) ONE ×2 (00:45→10:27)
[2018-11-13] MEDS ORDERED: DEXTROSE 5%-WATER - 50 ML IVPB ONE ×2 (00:45→10:27)
[2018-11-13] MEDS: AZTREONAM 1 GM in DEXTROSE 5%-WATER - 50 ML IVPB SCH ×2 (02:01→10:31)
[2018-11-13] MEDS: INSULIN SLIDING SCALE (NOVOLOG) 1 VIAL SQ SCH ×4 (06:29→21:47)
[2018-11-13 06:50] LABS: BASO % 0.6 % (0-2.0); EOS % 4.5 % (0-4.5); HEMATOCRIT 33.9 % (32.4-45.2); HEMOGLOBIN 11.2 GM/dL (10.7-15.3); LYMPH % 11.2 % (8-40); MCH 28.6 pg (25.7-33.7); MCHC 33.1 g/dl (32.0-36.0); MEAN CELL VOLUME 86.5 fl (80-96); MEAN PLT VOLUME 9.7 fl (7.5-11.1); MONO % 7.5 % (3.8-10.2); NEUT % 76.2 % (42.8-82.8); PLATELET COUNT 235 K/MM3 (134-434); RBC 3.92 M/mm3 (3.60-5.2); RDW 17.1 % (11.6-15.6)
[2018-11-13 07:21] LABS: INR 1.09 (0.83-1.09); PROTHROMBIN TIME (PATIENT) 12.9 SEC (9.7-13.0)
[2018-11-13 07:23] LABS: ACTIVATED PTT 29.6 SECONDS (25.2-36.5)
--- NOTE | 2018-11-13 08:27 | DS ---
Physical Examination Vital Signs: Vital Signs Temperature 98.6 F 11/13/18 06:00 Pulse Rate 72 11/13/18 06:00 Respiratory Rate 18 11/13/18 06:00 Blood Pressure 129/57 L 11/13/18 06:00 O2 Sat by Pulse Oximetry (%) 99 11/12/18 21:00 Cardiovascular: Yes: Regular Rate and Rhythm Respiratory: Yes: Regular, CTA Bilaterally Gastrointestinal: Yes: Normal Bowel Sounds, Soft Labs: CBC, BMP 11/13/18 05:53 11/11/18 05:50 Discharge Summary Reason For Visit: UTI SEPSIS Current Active Problems Diabetes 1.5, managed as type 1 (Acute) Dyspnea on exertion (Acute) Elevated troponin I level (Acute) Fever (Acute) Sepsis (Acute) Hospital Course: Problems (1) UTI (urinary tract infection) Assessment/Plan: pcn allergy aztreonam last dose tonight- completed 7 days Microbiology 11/05/18 12:55 Urine - Urine Clean Catch Urine Culture - Final Escherichia Coli Code(s): N39.0 - URINARY TRACT INFECTION, SITE NOT SPECIFIED (2) Type 2 diabetes mellitus with other diabetic arthropathy Assessment/Plan: bg hgba1c 9.1 uncontrolled endocrine consult insulin Code(s): E11.618 - TYPE 2 DIABETES MELLITUS WITH OTHER DIABETIC ARTHROPATHY (3) Dyspnea on exertion Assessment/Plan: echo normal LV and RV function cardiology consult noted troponin [id number] secondary to demand ischemia in anemia s/p prbc lasix as needed iron panel noted Code(s): R06.09 - OTHER FORMS OF DYSPNEA (4) Anemia Assessment/Plan: got iv iron heme on board--d/w dr osman to get bone marrow biopsy if capsule negative Code(s): D64.9 - ANEMIA, UNSPECIFIED check pulse ox prior to dc Condition: Stable - Instructions - Home Medications Comprehensive Discharge Medication List: Ambulatory Orders Atorvastatin Ca [Lipitor] 80 mg PO HS 08/09/18 Ferrous Sulfate 325 mg PO DAILY 08/09/18 Linaclotide [Linzess] 145 mcg PO DAILY 08/09/18 Furosemide [Lasix -] 40 mg PO DAILY #30 tablet MDD 1 08/10/18 Aspirin Coated [Ecotrin -] 81 mg PO DAILY tablet.ec 08/12/18 Insulin Lispro Protamin/Lispro [Humalog Mix 50-50 Kwikpen] 25 units SQ BID 10/08 Losartan Potassium 1 tab PO DAILY 10/08/18 Metoprolol Succinate 1 tab PO DAILY 10/08/18 Ranitidine [Zantac -] 1 tab PO DAILY 10/08/18 Nystatin/Triamcinolone Top Cr [Mycolog II -] 2 applic TP BID #1 tube 10/12/18 Albuterol 2.5/Ipratropium 0.5 [Duoneb -] 1 amp NEB Q6H PRN #120 amp 11/13/18 Pantoprazole Sodium [Protonix -] 40 mg PO BID #60 tablet.ec MDD 1 11/13/18
[2018-11-13] MEDS: SENNOSIDES 8.6MG TABLET (FP) PO SCH ×2 (10:30→21:41)
[2018-11-13] MEDS: POLYETHYLENE GLYCOL 3350 119 GM BTL PO SCH (10:31)
[2018-11-13] MEDS: LOSARTAN POTASSIUM 50 MG TABLET (FP) PO SCH (10:31)
--- NOTE | 2018-11-13 11:35 | PN ---
Progress Note, Physician History of Present Illness: PULMONARY ALERT,COMFORTABLE,-RESP DISTRESS, - Current Medication List Current Medications: Active Medications Acetaminophen (Tylenol -) 650 mg PO Q6H PRN PRN Reason: FEVER Acetaminophen (Ofirmev Injection -) 1,000 mg IVPB Q6H PRN PRN Reason: FEVER; IF PO NOT WORK Albuterol/Ipratropium (Duoneb -) 1 amp NEB Q6H PRN PRN Reason: SHORTNESS OF BREATH Atorvastatin Calcium (Lipitor -) 40 mg PO HS [facility] Last Admin: 11/12/18 22:16 Dose: 40 mg Aztreonam 1 gm/ Dextrose 50 mls @ 100 mls/hr IVPB Q8H-IV [facility] Last Admin: 11/13/18 10:31 Dose: 100 mls/hr Insulin Aspart (Novolog Vial Sliding Scale -) 1 vial SQ ACHS [facility]; Protocol Last Admin: 11/13/18 06:29 Dose: Not Given Losartan Potassium (Cozaar -) 50 mg PO DAILY [facility] Last Admin: 11/13/18 10:31 Dose: 50 mg Metoprolol Succinate (Toprol Xl -) 50 mg PO DAILY [facility] Last Admin: 11/13/18 10:30 Dose: 50 mg Non-Formulary Medication (Linaclotide [Linzess]) 145 mcg PO DAILY [facility] Ondansetron HCl (Zofran Injection) 4 mg IVPUSH Q6H PRN PRN Reason: NAUSEA Pantoprazole Sodium (Protonix Iv) 40 mg IVPUSH BID [facility] Last Admin: 11/12/18 22:16 Dose: 40 mg Polyethylene Glycol (Miralax (For Daily Use) -) 17 gm PO DAILY [facility] Last Admin: 11/13/18 10:31 Dose: Not Given Senna (Senna -) 1 tab PO BID [facility] Last Admin: 11/13/18 10:30 Dose: 1 tab - Objective Vital Signs: Vital Signs Temperature 98.6 F 11/13/18 06:00 Pulse Rate 72 11/13/18 06:00 Respiratory Rate 18 11/13/18 08:54 Blood Pressure 129/57 L 11/13/18 06:00 O2 Sat by Pulse Oximetry (%) 99 11/13/18 08:54 Constitutional: Yes: Well Nourished, Calm Eyes: Yes: WNL HENT: Yes: WNL Neck: Yes: WNL Cardiovascular: Yes: Regular Rate and Rhythm, S1, S2 Respiratory: Yes: CTA Bilaterally Gastrointestinal: Yes: Normal Bowel Sounds, Soft Extremities: Yes: WNL Edema: No Labs: CBC, BMP 11/13/18 05:53 Problem List - Problems (1) Diabetes 1.5, managed as type 1 Code(s): E13.9 - OTHER SPECIFIED DIABETES MELLITUS WITHOUT COMPLICATIONS (2) Elevated troponin I level Code(s): R74.8 - ABNORMAL LEVELS OF OTHER SERUM ENZYMES (3) HORACE (acute kidney injury) Code(s): N17.9 - ACUTE KIDNEY FAILURE, UNSPECIFIED (4) Anemia Code(s): D64.9 - ANEMIA, UNSPECIFIED Qualifiers: Anemia type: unspecified type Qualified Code(s): D64.9 - Anemia, unspecified (5) CAD (coronary artery disease) Code(s): I25.10 - ATHSCL HEART DISEASE OF [place] CORONARY ARTERY W/O ANG PCTRS (6) CKD (chronic kidney disease) Code(s): N18.9 - CHRONIC KIDNEY DISEASE, UNSPECIFIED (7) COPD (chronic obstructive pulmonary disease) Code(s): J44.9 - CHRONIC OBSTRUCTIVE PULMONARY DISEASE, UNSPECIFIED (8) HLD (hyperlipidemia) Code(s): E78.5 - HYPERLIPIDEMIA, UNSPECIFIED (9) Shortness of breath Code(s): R06.02 - SHORTNESS OF BREATH (10) Sleep apnea Code(s): G47.30 - SLEEP APNEA, UNSPECIFIED (11) UTI (urinary tract infection) Code(s): N39.0 - URINARY TRACT INFECTION, SITE NOT SPECIFIED Assessment/Plan ASSESSMENT/PLAN: Suspected vasovagal syncopal episode R/O Sepsis Normocytic Anemia Troponinemia Coronary artery disease s/p stent (04/2017) Diabetes mellitus Asthma Sleep apnea Hypertension Hyperlipidemia O2 as needed Glycemic control Continue cardiac meDS Will need formal reassessment of [facility] after discharge DR MANN
[2018-11-13 12:19] LABS: ANISOCYTOSIS 0; MACROCYTOSIS 0; PLATELET ESTIMATE NORMAL
--- NOTE | 2018-11-13 13:19 | PN ---
Progress Note, Physician History of Present Illness: Pt seen and examined at bedside. She is awake and alert. She is eager to go home. - Current Medication List Current Medications: Active Medications Acetaminophen (Tylenol -) 650 mg PO Q6H PRN PRN Reason: FEVER Acetaminophen (Ofirmev Injection -) 1,000 mg IVPB Q6H PRN PRN Reason: FEVER; IF PO NOT WORK Albuterol/Ipratropium (Duoneb -) 1 amp NEB Q6H PRN PRN Reason: SHORTNESS OF BREATH Atorvastatin Calcium (Lipitor -) 40 mg PO HS [facility] Last Admin: 11/12/18 22:16 Dose: 40 mg Insulin Aspart (Novolog Vial Sliding Scale -) 1 vial SQ ACHS [facility]; Protocol Last Admin: 11/13/18 13:10 Dose: 5 units Losartan Potassium (Cozaar -) 50 mg PO DAILY [facility] Last Admin: 11/13/18 10:31 Dose: 50 mg Metoprolol Succinate (Toprol Xl -) 50 mg PO DAILY [facility] Last Admin: 11/13/18 10:30 Dose: 50 mg Non-Formulary Medication (Linaclotide [Linzess]) 145 mcg PO DAILY [facility] Ondansetron HCl (Zofran Injection) 4 mg IVPUSH Q6H PRN PRN Reason: NAUSEA Pantoprazole Sodium (Protonix Iv) 40 mg IVPUSH BID [facility] Last Admin: 11/12/18 22:16 Dose: 40 mg Polyethylene Glycol (Miralax (For Daily Use) -) 17 gm PO DAILY [facility] Last Admin: 11/13/18 10:31 Dose: Not Given Senna (Senna -) 1 tab PO BID [facility] Last Admin: 11/13/18 10:30 Dose: 1 tab - Objective Vital Signs: Vital Signs Temperature 97.2 F L 11/13/18 10:00 Pulse Rate 78 11/13/18 10:00 Respiratory Rate 18 11/13/18 10:00 Blood Pressure 157/111 H 11/13/18 10:00 O2 Sat by Pulse Oximetry (%) 99 11/13/18 08:54 Constitutional: Yes: Calm Eyes: Yes: Conjunctiva Clear HENT: Yes: Atraumatic Neck: Yes: Supple Cardiovascular: Yes: S1, S2 Respiratory: Yes: CTA Bilaterally Gastrointestinal: Yes: Soft, Abdomen, Obese Genitourinary: Yes: WNL Musculoskeletal: Yes: WNL Edema: Yes Edema: LLE: 1+, RLE: 1+ Neurological: Yes: Oriented Psychiatric: Yes: Oriented Labs: CBC, BMP 11/13/18 05:53 11/11/18 05:50 INR, PTT INR 1.16 (0.83-1.09) H 11/08/18 09:10 INR 1.09 (0.83-1.09) 11/13/18 05:53 Problem List - Problems (1) Fever Code(s): R50.9 - FEVER, UNSPECIFIED (2) Sepsis Code(s): A41.9 - SEPSIS, UNSPECIFIED ORGANISM Assessment/Plan Current Medications Generic Name Dose Route Start Last Admin Trade Name Freq PRN Reason Stop Dose Admin Acetaminophen 650 mg 11/11/18 12:27 Tylenol - PO Q6H PRN FEVER Acetaminophen 1,000 mg 11/11/18 12:27 Ofirmev Injection - IVPB Q6H PRN FEVER; IF PO NOT WORK Albuterol/Ipratropium 1 amp 11/11/18 12:27 Duoneb - NEB Q6H PRN SHORTNESS OF BREATH Atorvastatin Calcium 40 mg 11/11/18 22:00 11/12/18 22:16 Lipitor - PO 40 mg HS ALEE Administration Insulin Aspart 1 vial 11/11/18 16:30 11/13/18 13:10 Novolog Vial Sliding Scale - SQ 5 units ACHS ALEE Administration Protocol Losartan Potassium 50 mg 11/12/18 10:00 11/13/18 10:31 Cozaar - PO 50 mg DAILY ALEE Administration Metoprolol Succinate 50 mg 11/12/18 10:00 11/13/18 10:30 Toprol Xl - PO 50 mg DAILY ALEE Administration Non-Formulary Medication 145 mcg 11/12/18 10:00 Linaclotide [Linzess] PO DAILY [facility] Ondansetron HCl 4 mg 11/11/18 12:27 Zofran Injection IVPUSH Q6H PRN NAUSEA Pantoprazole Sodium 40 mg 11/11/18 22:00 11/12/18 22:16 Protonix Iv IVPUSH 40 mg BID ALEE Administration Polyethylene Glycol 17 gm 11/12/18 10:00 11/13/18 10:31 Miralax (For Daily Use) - PO Not Given DAILY ALEE Senna 1 tab 11/11/18 22:00 11/13/18 10:30 Senna - PO 1 tab BID ALEE Administration Impression 1. CKD 2. proteinuria 3. elevated kappa chains with abnormal ratio 4. symptomatic anemia 5. DM 6. obesity 7. cad 8. chf 9. hx of positive mallory Plan - bone marrow put off until after she gets the capsule endoscopy - will need outpt follow up - recommend weight loss - will follow with oncology for elevated kappa chains - discussed with family
[2018-11-13] MEDS: PANTOPRAZOLE SODIUM 40 MG VIAL IVPUSH SCH ×2 (14:07→21:41)
--- NOTE | 2018-11-13 16:10 | PATH ---
Surgical Pathology Report Patient Name: CARLOS ARCINIEGA Med. Rec. #: [id number] /Age/Gender: 1950 (Age: 68) / F Account: [id number] Location: 4 W TELEMETRY U Taken: 11/09/2018 Received: 11/09/2018 Reported: 11/12/2018 Physicians: Jaron Graham M.D. Specimen(s) Received PERIPHERAL BLOOD Clinical History Dysproteinemia Final Diagnosis COMPREHENSIVE FLOW PANEL performed and interpreted at [facility], [place], [place] ([id number]) shows the following: INTERPRETATION: In the samples analyzed, there is no definite evidence of B or T-cell proliferative disorders or increased blasts. See [facility] report ([id number]) for additional details. Electronically Signed Rachel Guevara M.D. Gross Description Received labelled with the patient's name are two green top tubes of peripheral blood which are forwarded to [facility] for ancillary testing. MLSZ/11/12/2018 sanrakel/11/12/2018
[2018-11-13 17:07] LABS: FREE KAPPA,SERUM 58.7 mg/L (3.3-19.4)
--- NOTE | 2018-11-13 19:41 | PN ---
Progress Note, Physician Chief Complaint: aware she needs bm and capsule endo will follow [facility] - Current Medication List Current Medications: Active Medications Acetaminophen (Tylenol -) 650 mg PO Q6H PRN PRN Reason: FEVER Acetaminophen (Ofirmev Injection -) 1,000 mg IVPB Q6H PRN PRN Reason: FEVER; IF PO NOT WORK Albuterol/Ipratropium (Duoneb -) 1 amp NEB Q6H PRN PRN Reason: SHORTNESS OF BREATH Atorvastatin Calcium (Lipitor -) 40 mg PO HS [facility] Last Admin: 11/12/18 22:16 Dose: 40 mg Insulin Aspart (Novolog Vial Sliding Scale -) 1 vial SQ ACHS [facility]; Protocol Last Admin: 11/13/18 17:32 Dose: 4 units Losartan Potassium (Cozaar -) 50 mg PO DAILY [facility] Last Admin: 11/13/18 10:31 Dose: 50 mg Metoprolol Succinate (Toprol Xl -) 50 mg PO DAILY [facility] Last Admin: 11/13/18 10:30 Dose: 50 mg Non-Formulary Medication (Linaclotide [Linzess]) 145 mcg PO DAILY [facility] Ondansetron HCl (Zofran Injection) 4 mg IVPUSH Q6H PRN PRN Reason: NAUSEA Pantoprazole Sodium (Protonix Iv) 40 mg IVPUSH BID [facility] Last Admin: 11/13/18 14:07 Dose: 40 mg Polyethylene Glycol (Miralax (For Daily Use) -) 17 gm PO DAILY [facility] Last Admin: 11/13/18 10:31 Dose: Not Given Senna (Senna -) 1 tab PO BID [facility] Last Admin: 11/13/18 10:30 Dose: 1 tab - Objective Vital Signs: Vital Signs Temperature 97.9 F 11/13/18 14:00 Pulse Rate 68 11/13/18 14:00 Respiratory Rate 20 11/13/18 14:00 Blood Pressure 155/74 11/13/18 14:00 O2 Sat by Pulse Oximetry (%) 99 11/13/18 08:54 Constitutional: Yes: Calm Eyes: Yes: EOM Intact HENT: Yes: Normocephalic Neck: Yes: Trachea Midline Cardiovascular: Yes: Regular Rate and Rhythm Respiratory: Yes: CTA Bilaterally Gastrointestinal: Yes: Normal Bowel Sounds ...Rectal Exam: Yes: Deferred Genitourinary: Yes: WNL Musculoskeletal: Yes: WNL Edema: No Neurological: Yes: Alert, Oriented Labs: CBC, BMP 11/13/18 05:53 11/11/18 05:50 INR, PTT INR 1.16 (0.83-1.09) H 11/08/18 09:10 INR 1.09 (0.83-1.09) 11/13/18 05:53 Problem List - Problems (1) Diabetes 1.5, managed as type 1 Code(s): E13.9 - OTHER SPECIFIED DIABETES MELLITUS WITHOUT COMPLICATIONS (2) Dyspnea on exertion Code(s): R06.09 - OTHER FORMS OF DYSPNEA (3) Sepsis Code(s): A41.9 - SEPSIS, UNSPECIFIED ORGANISM (4) HORACE (acute kidney injury) Code(s): N17.9 - ACUTE KIDNEY FAILURE, UNSPECIFIED (5) Acute exacerbation of CHF (congestive heart failure) Code(s): I50.9 - HEART FAILURE, UNSPECIFIED Qualifiers: Heart failure type: unspecified Qualified Code(s): I50.9 - Heart failure, unspecified (6) Acute hypoxemic respiratory failure Code(s): J96.01 - ACUTE RESPIRATORY FAILURE WITH HYPOXIA (7) Anemia Code(s): D64.9 - ANEMIA, UNSPECIFIED Qualifiers: Anemia type: unspecified type Qualified Code(s): D64.9 - Anemia, unspecified Assessment/Plan Current Active Problems Diabetes 1.5, managed as type 1 (Acute) Dyspnea on exertion (Acute) Elevated troponin I level (Acute) Fever (Acute) Sepsis (Acute) Abnormal Lab Results 11/10/18 11/13/18 05:40 05:53 RDW 17.1 H Free [place] LC, Quant 58.7 H Free Lambda LC, Quant 27.1 H Free [place]/Lambda Ratio 2.17 H Laboratory Results - last 24 hr 11/10/18 11/12/18 11/13/18 05:40 22:13 05:53 WBC 8.0 RBC 3.92 Hgb 11.2 Hct 33.9 MCV 86.5 MCH 28.6 MCHC 33.1 RDW 17.1 H Plt Count 235 MPV 9.7 Absolute Neuts (auto) 6.1 Neutrophils % 76.2 Neutrophils % (Manual) 73.8 Band Neutrophils % 2.0 Lymphocytes % 11.2 Lymphocytes % (Manual) 13.1 D Monocytes % 7.5 Monocytes % (Manual) 7 Eosinophils % 4.5 D Eosinophils % (Manual) 2.0 D Basophils % 0.6 Basophils % (Manual) 0.0 Myelocytes % (Man) 1 Promyelocytes % (Man) 0 Blast Cells % (Manual) 0 Nucleated RBC % 0 Metamyelocytes 0 Hypochromia 0 Platelet Estimate Normal Polychromasia 0 Poikilocytosis 0 Anisocytosis 0 Microcytosis 0 Macrocytosis 0 PT with INR INR PTT (Actin FS) POC Glucometer 247 Free [place] LC, Quant 58.7 H Free Lambda LC, Quant 27.1 H Free [place]/Lambda Ratio 2.17 H 11/13/18 11/13/18 11/13/18 05:53 06:28 12:26 WBC RBC Hgb Hct MCV MCH MCHC RDW Plt Count MPV Absolute Neuts (auto) Neutrophils % Neutrophils % (Manual) Band Neutrophils % Lymphocytes % Lymphocytes % (Manual) Monocytes % Monocytes % (Manual) Eosinophils % Eosinophils % (Manual) Basophils % Basophils % (Manual) Myelocytes % (Man) Promyelocytes % (Man) Blast Cells % (Manual) Nucleated RBC % Metamyelocytes Hypochromia Platelet Estimate Polychromasia Poikilocytosis Anisocytosis Microcytosis Macrocytosis PT with INR 12.90 INR 1.09 PTT (Actin FS) 29.6 POC Glucometer 247 329 Free [place] LC, Quant Free [place]ambda LC, Quant Free [place]/Lambda Ratio 11/13/18 17:21 WBC RBC Hgb Hct MCV MCH MCHC RDW Plt Count MPV Absolute Neuts (auto) Neutrophils % Neutrophils % (Manual) Band Neutrophils % Lymphocytes % Lymphocytes % (Manual) Monocytes % Monocytes % (Manual) Eosinophils % Eosinophils % (Manual) Basophils % Basophils % (Manual) Myelocytes % (Man) Promyelocytes % (Man) Blast Cells % (Manual) Nucleated RBC % Metamyelocytes Hypochromia Platelet Estimate Polychromasia Poikilocytosis Anisocytosis Microcytosis Macrocytosis PT with INR INR PTT (Actin FS) POC Glucometer 280 Free [place] LC, Quant Free [place]ambda LC, Quant Free [place]/Lambda Ratio plan: continue novolog 70/bid doses follow up as out patient gi and heme onc
[2018-11-13 20:14] VITALS: BMI 46.8
--- NOTE | 2018-11-13 20:25 | CONSULT ---
Consult Consult Specialty:: Podiatry Reason for Consultation:: Pain left foot and ankle. - History of Present Illness Chief Complaint: Painful left foot and ankle. History of Present Illness: States has been hurting since knee surgery. - Past Medical History Cardio/Vascular: Yes: CAD (S/P STENTING), HTN, Hyperlipdemia Pulmonary: Yes: Asthma, Bronchitis, Pneumonia, Sleep Apnea Gastrointestinal: Yes: GERD Renal/: Yes: Renal Inusuff ...: No Musculoskeletal: Yes: Osteoarthritis Endocrine: Yes: Diabetes Mellitus - Alcohol/Substance Use Hx Alcohol Use: No History of Substance Use: reports: None - Smoking History Smoking history: Never smoked Have you smoked in the past 12 months: No Aproximately how many cigarettes per day: 0 - Social History Usual Living Arrangement: With Spouse ADL: Family Assistance Occupation: [employer] History of Recent Travel: No Home Medications - Allergies Allergies/Adverse Reactions: Allergies Allergy/AdvReac Type Severity Reaction Status Date / Time Penicillins Allergy Difficulty Verified 11/05/18 11:31 Breathing - Home Medications Home Medications: Ambulatory Orders Atorvastatin Ca [Lipitor] 80 mg PO HS 08/09/18 Ferrous Sulfate 325 mg PO DAILY 08/09/18 Linaclotide [Linzess] 145 mcg PO DAILY 08/09/18 Furosemide [Lasix -] 40 mg PO DAILY #30 tablet MDD 1 08/10/18 Aspirin Coated [Ecotrin -] 81 mg PO DAILY tablet.ec 08/12/18 Insulin Lispro Protamin/Lispro [Humalog Mix 50-50 Kwikpen] 25 units SQ BID 10/08 Losartan Potassium 1 tab PO DAILY 10/08/18 Metoprolol Succinate 1 tab PO DAILY 10/08/18 Ranitidine [Zantac -] 1 tab PO DAILY 10/08/18 Nystatin/Triamcinolone Top Cr [Mycolog II -] 2 applic TP BID #1 tube 10/12/18 Albuterol 2.5/Ipratropium 0.5 [Duoneb -] 1 amp NEB Q6H PRN #120 amp 11/13/18 Pantoprazole Sodium [Protonix -] 40 mg PO BID #60 tablet.ec MDD 1 11/13/18 Family Disease History - Family Disease History Family Disease History: Diabetes: Mother (: DM II complications), Sister (6 , 1 of old age), Other: Father (: CVA), Mother, Brother (3, 2 from "Old age", 1 from Lung Ca), Sister, Son (5, healthy), Daughter (1, healthy) Physical Exam Vital Signs: Vital Signs Temperature 98.9 F 11/13/18 17:00 Pulse Rate 69 11/13/18 17:00 Respiratory Rate 20 11/13/18 17:00 Blood Pressure 181/76 H 11/13/18 17:00 O2 Sat by Pulse Oximetry (%) 99 11/13/18 08:54 Extremities: Yes: Other (weakly papable pulses, +tender left plantar heel and fascia in arch, -ecchymosis,) Labs: CBC, BMP 11/13/18 05:53 11/11/18 05:50 Imaging - Results X-ray: Image Reviewed (awaiting official read) Assessment/Plan dm with neuroapthy? arthralgia plantar fasciitis Awaiting xray results.
[2018-11-13] MEDS: ATORVASTATIN CA 40 MG TABLET (FP) PO SCH (21:41)
[2018-11-14] MEDS: INSULIN SLIDING SCALE (NOVOLOG) 1 VIAL SQ SCH ×2 (06:33→12:49)
--- NOTE | 2018-11-14 09:07 | DS ---
Physical Examination Vital Signs: Vital Signs Temperature 98.6 F 11/14/18 06:00 Pulse Rate 78 11/14/18 08:41 Respiratory Rate 20 11/14/18 08:45 Blood Pressure 146/65 11/14/18 06:00 O2 Sat by Pulse Oximetry (%) 94 L 11/14/18 08:45 Cardiovascular: Yes: Regular Rate and Rhythm Respiratory: Yes: Regular, CTA Bilaterally Gastrointestinal: Yes: Normal Bowel Sounds, Soft Labs: CBC, BMP 11/13/18 05:53 11/11/18 05:50 Discharge Summary Reason For Visit: UTI SEPSIS Current Active Problems Diabetes 1.5, managed as type 1 (Acute) Dyspnea on exertion (Acute) Elevated troponin I level (Acute) Fever (Acute) Sepsis (Acute) Hospital Course: Problems (1) UTI (urinary tract infection) Assessment/Plan: pcn allergy aztreonam last dose tonight- completed 7 days Microbiology 11/05/18 12:55 Urine - Urine Clean Catch Urine Culture - Final Escherichia Coli Code(s): N39.0 - URINARY TRACT INFECTION, SITE NOT SPECIFIED (2) Type 2 diabetes mellitus with other diabetic arthropathy Assessment/Plan: bg [id number] 9.1 uncontrolled endocrine consult insulin Code(s): E11.618 - TYPE 2 DIABETES MELLITUS WITH OTHER DIABETIC ARTHROPATHY (3) Dyspnea on exertion Assessment/Plan: echo normal LV and RV function cardiology consult noted troponin [id number] secondary to demand ischemia in anemia s/p prbc lasix as needed iron panel noted follow u[p cxr will need home oxygen o2 sat 87 Code(s): R06.09 - OTHER FORMS OF DYSPNEA (4) Anemia Assessment/Plan: got iv iron heme on board--d/w dr osman to get bone marrow biopsy if capsule negative Code(s): D64.9 - ANEMIA, UNSPECIFIED dc home once services arranged Condition: Stable - Instructions - Home Medications Comprehensive Discharge Medication List: Ambulatory Orders Atorvastatin Ca [Lipitor] 80 mg PO HS 08/09/18 Ferrous Sulfate 325 mg PO DAILY 08/09/18 Linaclotide [Linzess] 145 mcg PO DAILY 08/09/18 Furosemide [Lasix -] 40 mg PO DAILY #30 tablet MDD 1 08/10/18 Aspirin Coated [Ecotrin -] 81 mg PO DAILY tablet.ec 08/12/18 Insulin Lispro Protamin/Lispro [Humalog Mix 50-50 Kwikpen] 25 units SQ BID 10/08 Losartan Potassium 1 tab PO DAILY 10/08/18 Metoprolol Succinate 1 tab PO DAILY 10/08/18 Ranitidine [Zantac -] 1 tab PO DAILY 10/08/18 Nystatin/Triamcinolone Top Cr [Mycolog II -] 2 applic TP BID #1 tube 10/12/18 Albuterol 2.5/Ipratropium 0.5 [Duoneb -] 1 amp NEB Q6H PRN #120 amp 11/13/18 Pantoprazole Sodium [Protonix -] 40 mg PO BID #60 tablet.ec MDD 1 11/13/18
[2018-11-14] MEDS: LOSARTAN POTASSIUM 50 MG TABLET (FP) PO SCH (10:13)
[2018-11-14] MEDS: PANTOPRAZOLE SODIUM 40 MG VIAL IVPUSH SCH ×2 (10:13→10:19)
[2018-11-14] MEDS: SENNOSIDES 8.6MG TABLET (FP) PO SCH (10:13)
[2018-11-14] MEDS: POLYETHYLENE GLYCOL 3350 119 GM BTL PO SCH (10:15)
--- NOTE | 2018-11-14 11:22 | PN ---
Progress Note, Physician History of Present Illness: pulmonary alert,comfortable,+ bautista,o2 sat 95% on ra. - Current Medication List Current Medications: Active Medications Acetaminophen (Tylenol -) 650 mg PO Q6H PRN PRN Reason: FEVER Acetaminophen (Ofirmev Injection -) 1,000 mg IVPB Q6H PRN PRN Reason: FEVER; IF PO NOT WORK Albuterol/Ipratropium (Duoneb -) 1 amp NEB Q6H PRN PRN Reason: SHORTNESS OF BREATH Atorvastatin Calcium (Lipitor -) 40 mg PO HS [facility] Last Admin: 11/13/18 21:41 Dose: 40 mg Insulin Aspart (Novolog Vial Sliding Scale -) 1 vial SQ ACHS [facility]; Protocol Last Admin: 11/14/18 06:33 Dose: Not Given Insulin Aspart (Novolog Mix 70/30 Vial) 15 units SQ BIDAC [facility] Losartan Potassium (Cozaar -) 50 mg PO DAILY [facility] Last Admin: 11/14/18 10:13 Dose: 50 mg Metoprolol Succinate (Toprol Xl -) 50 mg PO DAILY [facility] Last Admin: 11/14/18 10:13 Dose: 50 mg Non-Formulary Medication (Linaclotide [Linzess]) 145 mcg PO DAILY [facility] Ondansetron HCl (Zofran Injection) 4 mg IVPUSH Q6H PRN PRN Reason: NAUSEA Pantoprazole Sodium (Protonix Iv) 40 mg IVPUSH BID [facility] Last Admin: 11/14/18 10:19 Dose: Not Given Polyethylene Glycol (Miralax (For Daily Use) -) 17 gm PO DAILY [facility] Last Admin: 11/14/18 10:15 Dose: Not Given Senna (Senna -) 1 tab PO BID [facility] Last Admin: 11/14/18 10:13 Dose: 1 tab - Objective Vital Signs: Vital Signs Temperature 98.1 F 11/14/18 10:00 Pulse Rate 75 11/14/18 10:00 Respiratory Rate 20 11/14/18 10:00 Blood Pressure 152/69 11/14/18 10:00 O2 Sat by Pulse Oximetry (%) 94 L 11/14/18 08:45 Constitutional: Yes: Calm, Obese Eyes: Yes: WNL HENT: Yes: WNL Neck: Yes: WNL Cardiovascular: Yes: Regular Rate and Rhythm, S1, S2 Respiratory: Yes: Diminished Gastrointestinal: Yes: Normal Bowel Sounds, Soft Extremities: Yes: WNL Edema: Yes Labs: Problem List - Problems (1) Diabetes 1.5, managed as type 1 Code(s): E13.9 - OTHER SPECIFIED DIABETES MELLITUS WITHOUT COMPLICATIONS (2) Elevated troponin I level Code(s): R74.8 - ABNORMAL LEVELS OF OTHER SERUM ENZYMES (3) HORACE (acute kidney injury) Code(s): N17.9 - ACUTE KIDNEY FAILURE, UNSPECIFIED (4) Anemia Code(s): D64.9 - ANEMIA, UNSPECIFIED Qualifiers: Anemia type: unspecified type Qualified Code(s): D64.9 - Anemia, unspecified (5) CAD (coronary artery disease) Code(s): I25.10 - ATHSCL HEART DISEASE OF [place] CORONARY ARTERY W/O ANG PCTRS (6) CKD (chronic kidney disease) Code(s): N18.9 - CHRONIC KIDNEY DISEASE, UNSPECIFIED (7) COPD (chronic obstructive pulmonary disease) Code(s): J44.9 - CHRONIC OBSTRUCTIVE PULMONARY DISEASE, UNSPECIFIED (8) HLD (hyperlipidemia) Code(s): E78.5 - HYPERLIPIDEMIA, UNSPECIFIED (9) Shortness of breath Code(s): R06.02 - SHORTNESS OF BREATH (10) Sleep apnea Code(s): G47.30 - SLEEP APNEA, UNSPECIFIED (11) UTI (urinary tract infection) Code(s): N39.0 - URINARY TRACT INFECTION, SITE NOT SPECIFIED Assessment/Plan ASSESSMENT/PLAN: Suspected vasovagal syncopal episode R/O Sepsis Normocytic Anemia Troponinemia Coronary artery disease s/p stent (04/2017) Diabetes mellitus Asthma Sleep apnea Hypertension Hyperlipidemia Glycemic control Continue cardiac meDS Will need formal reassessment of OSAS after discharge Outpatient pfts DR MANN
--- NOTE | 2018-11-14 12:43 | CONSULT ---
- Consultation REQUESTING PROVIDER: CONSULT REQUEST: We have been asked to surgically evaluate this patient for (L foot pain). PCP:Rigo Payne HISTORY OF PRESENT ILLNESS: 68 y/o F w/ PMHx PMHx CHF, DM, CAD, HTN, HL, anemia and asthma, admitted 11/05 with dysuria, found to have urosepsis. Vascular contacted for vascular evaluation for L foot pain. Pt reports she has had pain with ambulation in her L foot since her knee surgery 15 years ago. Reports pain is on the plantar surface, worsened with ambulation and improved with rest. Unsure if she has been seen by her primary care doctor or DPM for this issue in the past. Denies h /o tobacco abuse, prior vascular issues or evaluations,. known PVD. PMHx: as above PSHx: CAd s/p stents, L knee surgery for meniscal tear Home Medications Medication Instructions Recorded Atorvastatin Ca [Lipitor] 80 mg PO HS 08/09/18 Ferrous Sulfate 325 mg PO DAILY 08/09/18 Linaclotide [Linzess] 145 mcg PO DAILY 08/09/18 Furosemide [Lasix -] 40 mg PO DAILY #30 tablet MDD 1 08/10/18 Aspirin Coated [Ecotrin -] 81 mg PO DAILY tablet.ec 08/12/18 Insulin Lispro Protamin/Lispro 25 units SQ BID 10/08/18 [Humalog Mix 50-50 Kwikpen] Losartan Potassium 1 tab PO DAILY 10/08/18 Metoprolol Succinate 1 tab PO DAILY 10/08/18 Ranitidine [Zantac -] 1 tab PO DAILY 10/08/18 Nystatin/Triamcinolone Top Cr 2 applic TP BID #1 tube 10/12/18 [Mycolog II -] Albuterol 2.5/Ipratropium 0.5 1 amp NEB Q6H PRN #120 amp 11/13/18 [Duoneb -] Pantoprazole Sodium [Protonix -] 40 mg PO BID #60 tablet.ec MDD 1 11/13/18 Allergies Allergy/AdvReac Type Severity Reaction Status Date / Time Penicillins Allergy Difficulty Verified 11/05/18 11:31 Breathing REVIEW OF SYSTEMS: MUSCULOSKELETAL: Absent: myalgia, arthralgia PHYSICAL EXAM: GENERAL: Awake, alert, and fully oriented, in no acute distress. HEAD: Normal with no signs of trauma. LUNGS: Unlabored on RA No accessory muscle use. LOWER EXTREMITIES: B/L feet warm, well perfused, cap refill brisk. no ulcers noted. + ttp plantar surface l foot. Vasc: 2+ b/l dp, 1+ b/l pT Vital Signs Temperature 98.1 F 11/14/18 10:00 Pulse Rate 75 11/14/18 10:00 Respiratory Rate 20 11/14/18 10:00 Blood Pressure 152/69 11/14/18 10:00 O2 Sat by Pulse Oximetry (%) 94 L 11/14/18 08:45 Lab Results WBC 8.0 K/mm3 (4.0-10.0) 11/13/18 05:53 RBC 3.92 M/mm3 (3.60-5.2) 11/13/18 05:53 Hgb 11.2 GM/dL (10.7-15.3) 11/13/18 05:53 Hct 33.9 % (32.4-45.2) 11/13/18 05:53 MCV 86.5 fl (80-96) 11/13/18 05:53 MCHC 33.1 g/dl (32.0-36.0) 11/13/18 05:53 RDW 17.1 % (11.6-15.6) H 11/13/18 05:53 Plt Count 235 K/MM3 (134-434) 11/13/18 05:53 Sodium 143 mmol/L (136-145) 11/11/18 05:50 Potassium 4.6 mmol/L (3.5-5.1) 11/11/18 05:50 Chloride 110 mmol/L (98-107) H 11/11/18 05:50 Carbon Dioxide 27 mmol/L (21-32) 11/11/18 05:50 Anion Gap 5 MMOL/L (8-16) L 11/11/18 05:50 BUN 22.6 mg/dL (7-18) H 11/11/18 05:50 Creatinine 1.1 mg/dL (0.55-1.3) 11/11/18 05:50 Random Glucose 190 mg/dL (74-106) H 11/11/18 05:50 Calcium 8.6 mg/dL (8.5-10.1) 11/11/18 05:50 Blood Type O POSITIVE 11/07/18 09:30 Antibody Screen Negative 11/07/18 09:30 INR 1.16 (0.83-1.09) H 11/08/18 09:10 INR 1.09 (0.83-1.09) 11/13/18 05:53 L foot Xray (11/12): Enthesophyte at the site of the Achilles tendon, Tiny heel spur, Hammertoes. Demineralization distal aspect of fifth through second metatarsals. No fracture no fb seen. A/P: 68 y/o F w/ PMHx PMHx CHF, DM, CAD, HTN, HL, anemia and asthma, admitted with dysuria, found to have urosepsis. Vascular contacted for vascular evaluation for L foot pain. Chronic L foot pain x 15 years No ulcerations or evidence of vascular insufficiency -No acute vascular intervention at this time -Management per DPM d/w attending Dr Rodriguez
--- NOTE | 2018-11-14 13:48 | PN ---
Progress Note, Physician History of Present Illness: Pt seen and examined at bedside. She gets shortness of breath with ambulation. She denies dysuria. - Current Medication List Current Medications: Active Medications Acetaminophen (Tylenol -) 650 mg PO Q6H PRN PRN Reason: FEVER Acetaminophen (Ofirmev Injection -) 1,000 mg IVPB Q6H PRN PRN Reason: FEVER; IF PO NOT WORK Albuterol/Ipratropium (Duoneb -) 1 amp NEB Q6H PRN PRN Reason: SHORTNESS OF BREATH Atorvastatin Calcium (Lipitor -) 40 mg PO HS [facility] Last Admin: 11/13/18 21:41 Dose: 40 mg Insulin Aspart (Novolog Vial Sliding Scale -) 1 vial SQ ACHS [facility]; Protocol Last Admin: 11/14/18 12:49 Dose: Not Given Insulin Aspart (Novolog Mix 70/30 Vial) 15 units SQ BIDAC [facility] Losartan Potassium (Cozaar -) 50 mg PO DAILY [facility] Last Admin: 11/14/18 10:13 Dose: 50 mg Metoprolol Succinate (Toprol Xl -) 50 mg PO DAILY [facility] Last Admin: 11/14/18 10:13 Dose: 50 mg Non-Formulary Medication (Linaclotide [Linzess]) 145 mcg PO DAILY [facility] Ondansetron HCl (Zofran Injection) 4 mg IVPUSH Q6H PRN PRN Reason: NAUSEA Pantoprazole Sodium (Protonix Iv) 40 mg IVPUSH BID [facility] Last Admin: 11/14/18 10:19 Dose: Not Given Polyethylene Glycol (Miralax (For Daily Use) -) 17 gm PO DAILY [facility] Last Admin: 11/14/18 10:15 Dose: Not Given Senna (Senna -) 1 tab PO BID [facility] Last Admin: 11/14/18 10:13 Dose: 1 tab - Objective Vital Signs: Vital Signs Temperature 98.1 F 11/14/18 10:00 Pulse Rate 75 11/14/18 10:00 Respiratory Rate 20 11/14/18 10:00 Blood Pressure 152/69 11/14/18 10:00 O2 Sat by Pulse Oximetry (%) 94 L 11/14/18 08:45 Constitutional: Yes: Calm Eyes: Yes: Conjunctiva Clear HENT: Yes: Atraumatic Neck: Yes: Supple Cardiovascular: Yes: S1, S2 Respiratory: Yes: CTA Bilaterally Gastrointestinal: Yes: Soft, Abdomen, Obese Genitourinary: Yes: WNL Musculoskeletal: Yes: WNL Edema: Yes Edema: LLE: Trace, RLE: Trace Integumentary: Yes: WNL Neurological: Yes: Oriented Psychiatric: Yes: Oriented Labs: CBC, BMP 11/13/18 05:53 11/11/18 05:50 INR, PTT INR 1.16 (0.83-1.09) H 11/08/18 09:10 INR 1.09 (0.83-1.09) 11/13/18 05:53 Problem List - Problems (1) Fever Code(s): R50.9 - FEVER, UNSPECIFIED (2) Sepsis Code(s): A41.9 - SEPSIS, UNSPECIFIED ORGANISM Assessment/Plan Current Medications Generic Name Dose Route Start Last Admin Trade Name Freq PRN Reason Stop Dose Admin Acetaminophen 650 mg 11/11/18 12:27 Tylenol - PO Q6H PRN FEVER Acetaminophen 1,000 mg 11/11/18 12:27 Ofirmev Injection - IVPB Q6H PRN FEVER; IF PO NOT WORK Albuterol/Ipratropium 1 amp 11/11/18 12:27 Duoneb - NEB Q6H PRN SHORTNESS OF BREATH Atorvastatin Calcium 40 mg 11/11/18 22:00 11/13/18 21:41 Lipitor - PO 40 mg HS ALEE Administration Insulin Aspart 1 vial 11/11/18 16:30 11/14/18 12:49 Novolog Vial Sliding Scale - SQ Not Given ACHS [facility] Protocol Insulin Aspart 15 units 11/14/18 16:30 Novolog Mix 70/30 Vial SQ BIDAC ALEE Losartan Potassium 50 mg 11/12/18 10:00 11/14/18 10:13 Cozaar - PO 50 mg DAILY ALEE Administration Metoprolol Succinate 50 mg 11/12/18 10:00 11/14/18 10:13 Toprol Xl - PO 50 mg DAILY ALEE Administration Non-Formulary Medication 145 mcg 11/12/18 10:00 Linaclotide [Linzess] PO DAILY ALEE Ondansetron HCl 4 mg 11/11/18 12:27 Zofran Injection IVPUSH Q6H PRN NAUSEA Pantoprazole Sodium 40 mg 11/11/18 22:00 11/14/18 10:19 Protonix Iv IVPUSH Not Given BID ALEE Polyethylene Glycol 17 gm 11/12/18 10:00 11/14/18 10:15 Miralax (For Daily Use) - PO Not Given DAILY ALEE Senna 1 tab 11/11/18 22:00 11/14/18 10:13 Senna - PO 1 tab BID ALEE Administration Impression 1. CKD 2. proteinuria 3. elevated kappa chains with abnormal ratio 4. symptomatic anemia 5. DM 6. obesity 7. cad 8. chf 9. hx of positive mallory Plan - no new bmp - can see pt in office - cxr reviewed - will need to follow with oncology - recommend weight loss - can see in office - discussed with family
[2018-11-14 15:12] VITALS: BP 177/82; PULSE 64; TEMP 97.9
[2018-11-14] MEDS ORDERED: INSULIN (NOVOLOG MIX 70/30) 100 UNITS/ML MDV SQ SCH (16:30)
== END 2018-11-14 18:12 | disposition home health service (06) | DRG 871 ==
LOC: JER 11:20 → JERBED 14:52 → J5S 17:31 → J4W 11-06 13:27 → JICU 11-07 10:07 → J4W 11-11 12:31
PROVIDERS: ADMIT Family Medicine; ATTEND Family Medicine
PROC: 30233N1 Transfusion of Nonautologous Red Blood Cells into Peripheral Vein, Percutaneous Approach (ICD-10-PCS; principal; 2018-11-07)
DX: A41.51 Sepsis due to Escherichia coli [E. coli] (principal); I21.A1 Myocardial infarction type 2; N39.0 Urinary tract infection, site not specified; Z68.42 Body mass index [BMI] 45.0-49.9, adult; I50.32 Chronic diastolic (congestive) heart failure; N17.9 Acute kidney failure, unspecified; I11.0 Hypertensive heart disease with heart failure; E10.65 Type 1 diabetes mellitus with hyperglycemia; E10.618 Type 1 diabetes mellitus with other diabetic arthropathy; Z79.4 Long term (current) use of insulin; I25.10 Atherosclerotic heart disease of native coronary artery without angina pectoris; E78.5 Hyperlipidemia, unspecified; J45.909 Unspecified asthma, uncomplicated; Z88.0 Allergy status to penicillin; I25.2 Old myocardial infarction; Z95.5 Presence of coronary angioplasty implant and graft; K59.00 Constipation, unspecified; K21.9 Gastro-esophageal reflux disease without esophagitis; G47.33 Obstructive sleep apnea (adult) (pediatric); E66.01 Morbid (severe) obesity due to excess calories; D63.8 Anemia in other chronic diseases classified elsewhere; Z87.39 Personal history of other diseases of the musculoskeletal system and connective tissue; D50.9 Iron deficiency anemia, unspecified; M72.2 Plantar fascial fibromatosis
CPT/HCPCS: 36415; 36430; 36511; 70450-TC; 71045-TC-FY; 71046-TC-FY; 73610-TC-LT-FY; 73610-TC-RT-FY; 73630-TC-LT; 73630-TC-RT-FY; 74176-TC; 80048; 80053; 80061; 81003; 82550; 82728; 82784; 82962; 83036; 83540; 83550; 83605; 83615; 83721; 83735; 83880; 83883; 84100; 84155; 84165; 84466; 84484; 85025; 85027; 85044; 85610; 85730; 86850; 86900; 86901; 86922; 87040; 87086; 87186; 88300-TC; 93005; 93010; 93306-TC; 93880-TC; 94640; 94761; 97116-GP; 97161-GP; 99284-25; J0131; J1439; J1644; J7030; P9038; P9058

== ENCOUNTER 2019-05-01 11:33 | Inpatient (IN) | payer BC, OTHER ==
--- NOTE | 2019-05-01 13:11 | PDOC ---
History of Present Illness - General Chief Complaint: Lightheaded Stated Complaint: SOB / DIZZY Time Seen by Provider: 05/01/19 13:10 History Source: Patient Exam Limitations: No Limitations - History of Present Illness Initial Comments: 05/01/19 13:10 Miri Shukla is a 68M with PMH CHF, DM, CAD s/p stent on ASA, HTN, HLD, TERENCE non -compliant with CPAP, and anemia presenting with dizziness. Patient has history of ACS s/p stenting last year, as well as admission to [facility] in October 2018 for anemia and transfusions. Here today for one week of worsening weakness and SOB. Per son at bedside, has been struggling to walk a few steps, only talking in short phrases. Denies fever/chills, N/V, diarrhea, urinary sx, abdominal pain. Non-productive cough. Also reports some right arm pain and chest pain last night that went away on its own. Unclear reason for anemia, has been evaluated in the past by GI, has not seen hematology yet. Denies bloody stools or abdominal pain. Has chronic edema to lower extremities, on 40mg PO Lasix daily without significant improvement. PMD Dr. Philip Cards Dr. Sparks Past History - Past Medical History Allergies/Adverse Reactions: Allergies Allergy/AdvReac Type Severity Reaction Status Date / Time Penicillins Allergy Difficulty Verified 11/05/18 11:31 Breathing Home Medications: Ambulatory Orders Atorvastatin Ca [Lipitor] 80 mg PO HS 08/09/18 Ferrous Sulfate 325 mg PO DAILY 08/09/18 Linaclotide [Linzess] 290 mcg PO DAILY 08/09/18 Furosemide [Lasix -] 40 mg PO DAILY #30 tablet MDD 1 08/10/18 Aspirin Coated [Ecotrin -] 81 mg PO DAILY tablet.ec 08/12/18 Insulin Lispro Protamin/Lispro [Humalog Mix 50-50 Kwikpen] 30 units SQ BID 10/08 Metoprolol Succinate 1 tab PO DAILY 10/08/18 Albuterol 2.5/Ipratropium 0.5 [Duoneb -] 1 amp NEB Q6H PRN #120 amp 11/13/18 Anemia: Yes Asthma: Yes Cardiac Disorders: Yes ([place], CAD sp Stentx2,) COPD: No CHF: Yes Diabetes: Yes GI Disorders: Yes (constipation) HTN: Yes Hypercholesterolemia: Yes - Surgical History Abdominal Surgery: Yes Cardiac Surgery: Yes (cath with stent x2) Orthopedic Surgery: Yes (knee surgery) - Immunization History TDAP Vaccination: Yes Immunization Up to Date: Yes - Psycho Social/Smoking Cessation Hx Smoking Status: No Smoking History: Never smoked Have you smoked in the past 12 months: No Number of Cigarettes Smoked Daily: 0 Hx Alcohol Use: No Drug/Substance Use Hx: No Substance Use Type: None Hx Substance Use Treatment: No Review of Systems - Review of Systems Able to Perform ROS?: Yes Constitutional: No: Chills, Fever HEENTM: No: Symptoms Reported Respiratory: Yes: Cough, Shortness of Breath, SOB with Exertion, SOB at Rest. No: Wheezing Cardiac (ROS): Yes: Chest Pain, Edema. No: Irregular Heart Rate, Lightheadedness, Palpitations, Syncope, Chest Tightness ABD/GI: No: Constipated, Diarrhea, Nausea, Poor Appetite, Poor Fluid Intake, Vomiting : No: Symptoms Reported Musculoskeletal: No: Symptoms Reported Integumentary: No: Symptoms Reported Neurological: No: Headache, Numbness, Unsteady Gait, Ataxia, Dizziness Endocrine: No: Symptoms Reported Hematologic/Lymphatic: No: Symptoms Reported All Other Systems: Reviewed and Negative *Physical Exam - Vital Signs Last Vital Signs Temp Pulse Resp BP Pulse Ox 98.2 F 79 20 152/58 L 97 05/01/19 11:52 05/01/19 11:52 05/01/19 11:52 05/01/19 11:52 05/01/19 11:52 - Physical Exam General Appearance: Yes: Nourished, Appropriately Dressed, Mild Distress, Obese HEENT: positive: EOMI, TEO, Normal ENT Inspection, Normal Voice, Symmetrical, Pharynx Normal, Hearing Grossly Normal. negative: Scleral Icterus (R), Scleral Icterus (L), Pharyngeal Erythema, Tonsillar Exudate, Tonsillar Erythema Neck: positive: Trachea midline, Normal Thyroid, Supple. negative: Tender, Rigid, Lymphadenopathy (R), Lymphadenopathy (L), Tender lateral, Tender midline Respiratory/Chest: positive: Lungs Clear, Normal Breath Sounds, Labored Respiration. negative: Chest Tender, Respiratory Distress, Accessory Muscle Use , Decreased Breath Sounds, Crackles, Rhonchi, Stridor, Wheezing Cardiovascular: positive: Regular Rhythm, Regular Rate. negative: Murmur Gastrointestinal/Abdominal: positive: Normal Bowel Sounds, Flat, Soft. negative : Tender, Organomegaly, Pulsatile Mass, Guarding, Rebound Musculoskeletal: positive: Normal Inspection. negative: CVA Tenderness, Decreased Range of Motion Extremity: positive: Normal Capillary Refill, Normal Inspection, Normal Range of Motion, Pelvis Stable, Swelling (2+ bialterally). negative: Tender, Pedal Edema Integumentary: positive: Normal Color, Dry, Warm. 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 NML intact, Fully Oriented, Alert, Normal Mood/ Affect, Normal Response, Motor Strength 07/29 ED Treatment Course - LABORATORY CBC & Chemistry Diagram: 05/01/19 12:30 05/01/19 12:30 - ADDITIONAL ORDERS Additional order review: Laboratory Results 05/01/19 12:39 POC Glucometer 259 05/01/19 12:39 POC Glucometer 259 Medical Decision Making - Medical Decision Making 05/01/19 16:34 Patient has history of ACS s/p stent on ASA, CHF on Lasix with last EF 60%, history of anemia or unknown origin that has already been evaluated by GI requiring transfusions, presenting with SOB and weakness consistent with symptomatic anemia, COPD, PNA, or CHF exacerbation. Patient appears overloaded on exam with swollen abdomen and bilateral lower extremity swelling, already taking Lasix daily. Also reports chest pain, but more likely to be related to anemia that ACS. - CMP for eval lytes - CBC for eval anemia - trop/ECG for eval cardiac etiology - BNP for eval CHF - CXR for eval pulmonary edema Labs notable for: - BNP 2600 - Hgb 8.5 down from 11.2 last time - Cr 1.3 - K 5.3, asymptomatic - trop 0.03 ECG shows NSR with LAD and incomplete LBBB HR 78 QRS 114 Qtc 462, AVL TWI, all consistent with prior ECG CXR shows prominent mediastinum and congestive changes Presentation consistent with symptomatic anemia. Giving 40mg IV Lasix, ordering 1 unit pRBC for slow replenishment. 05/01/19 17:59 Senior resident discussed case with Dr. Lawler, who believes symptoms being caused by pulmonary congestion 2/2 TERENCE and extremely poor CPCP compliance. Does not believe patient needs pRBCs. Otherwise good for admission to [facility] under his service. Discharge - Discharge Information Problems reviewed: Yes Clinical Impression/Diagnosis: Shortness of breath, Symptomatic anemia Condition: Stable - Admission Yes - Follow up/Referral - Patient Discharge Instructions - Post Discharge Activity
[2019-05-01 13:15] LABS: BASO % 0.8 % (0-2.0); EOS % 1.7 % (0-4.5); HEMATOCRIT 25.6 % (32.4-45.2); HEMOGLOBIN 8.5 GM/dL (10.7-15.3); LYMPH % 12.7 % (8-40); MCH 30.3 pg (25.7-33.7); MCHC 33.3 g/dl (32.0-36.0); MEAN PLT VOLUME 11.4 fl (7.5-11.1); MONO % 6.4 % (3.8-10.2); NEUT % 78.4 % (42.8-82.8); PLATELET COUNT 219 K/MM3 (134-434); RBC 2.81 M/mm3 (3.60-5.2); RDW 13.7 % (11.6-15.6); WHITE BLOOD COUNT 8.1 K/mm3 (4.0-10.0)
[2019-05-01 13:25] LABS: INR 1.09 (0.83-1.09); PROTHROMBIN TIME (PATIENT) 12.9 SEC (9.7-13.0)
[2019-05-01 13:38] LABS: ALBUMIN 2.8 g/dl (3.4-5.0); BILIRUBIN,TOTAL 0.3 mg/dL (0.2-1); BLOOD UREA NITROGEN 37.2 mg/dL (7-18); CALCIUM 8.8 mg/dL (8.5-10.1); CREATININE 1.3 mg/dL (0.55-1.3); POTASSIUM 5.3 mmol/L (3.5-5.1); TOT PROT 6.8 g/dl (6.4-8.2)
--- NOTE | 2019-05-01 13:54 | EKG ---
Test Reason : Blood Pressure : / mmHG Vent. Rate : 078 BPM Atrial Rate : 078 BPM P-R Int : 164 ms QRS Dur : 114 ms QT Int : 406 ms P-R-T Axes : 065 -43 104 degrees QTc Int : 462 ms NORMAL SINUS RHYTHM LEFT AXIS DEVIATION LEFT ANTERIOR FASCICULAR BLOCK T WAVE ABNORMALITY, CONSIDER LATERAL ISCHEMIA ABNORMAL ECG WHEN COMPARED WITH ECG OF 07-NOV-2018 14:59, NO SIGNIFICANT CHANGE WAS FOUND Confirmed by Esau Pierre ([id number]) on 05/01/2019 1:53:57 PM Referred By: Confirmed By:Esau Pierre
[2019-05-01 15:45] LABS: N-TERMINAL BNP 2340.9 pg/ml (5-125)
[2019-05-01] MEDS ORDERED: FUROSEMIDE 40 MG/4 ML INJECTABLE VIAL IVPUSH ONE (16:03)
--- NOTE | 2019-05-01 16:21 | PDOC ---
Documentation entered by Karen Martinez SCRIBE, acting as scribe for Paras Carpenter MD. Paras Carpenter MD: This documentation has been prepared by the Michelle peralta Adrianna, SCRIBE, under my direction and personally reviewed by me in its entirety. I confirm that the documentation accurately reflects all work, treatment, procedures, and medical decision making performed by me. Attending Attestation - Resident Resident Name: [email or web address] - ED Attending Attestation I have performed the following: I have examined & evaluated the patient, The case was reviewed & discussed with the resident, I agree w/resident's findings & plan, Exceptions are as noted - HPI HPI: The patient is a 68 year old female, with a significant PMH of CHF, DM, CAD (s/ p stents x2), HTN, HLD, asthma, and anemia, who presents to the ED for evaluation of weakness and SOB for one week. Patient reports feeling weak, nothing she cannot get around as much as she typically does. She endorses associated SOB and dyspnea on exertion. Allergies: Penicillins Surgical History: Cardiac cath with stent x2, orthopedic knee surgery Social History: Denies EtOH, tobacco, or illicit drug use PCP: Dr. Philip - Physicial Exam PE: 05/01/19 16:19 Patient is awake and alert, morbidly obese, in no distress Normocephalic and atraumatic PERRLA, EOMI Conjunctiva pale mild bibasilar Rales RRR abdomen soft, nontender, nondistended +1 pitting edema lower extremities No focal neurological deficits - Medical Decision Making 05/01/19 16:20 68-year-old female with multiple comorbidities, history of transfusion dependent anemia, CAD status post stenting on aspirin presents with several weeks of worsening weakness, dyspnea on exertion and chest discomfort. In the ER, patient is awake and alert, nontoxic-appearing, with vital signs noted. EKG shows incomplete LBBB which is unchanged from previous; chest x-ray feels cardiomegaly and pulmonary vascular congestion. First set of cardiac enzymes within normal limit. Patient's heart score is noted to be 5. Will administer IV Lasix followed by 1 unit of packed cells followed by additional Lasix. Will admit to telemetry for serial cardiac enzymes and continue diuresis.
[2019-05-01] MEDS ORDERED: FUROSEMIDE 40 MG/4 ML INJECTABLE VIAL ONE (16:56)
[2019-05-01] MEDS ORDERED: CALCIUM GLUCONATE 10% - 1,000 MG/10 ML VIAL IVPUSH ONE (17:53)
[2019-05-01] MEDS ORDERED: ALBUTEROL SO4 HFA INHALER IH ONE (17:56)
[2019-05-01] MEDS ORDERED: ALBUTEROL SO4 2.5/IPRATROPIUM 0.5 INH SOL 3 ML VIAL.NEB. NEB PRN (20:22)
--- NOTE | 2019-05-01 20:58 | HP ---
68 F h/o morbid obesity, TERENCE, ?OHS, HFpEF, IDDM, CAD s/p stents, HTN, HLD, chronic anemia and asthma presents after an episode of nocturnal dyspnea and associated R neck pain which woke her up in the middle of the night. Patient describes event as waking up "gasping for air", and when arising felt R sided neck pain and shoulder pain. Patient endorses recently being diagnosed w/ severe TERENCE, was told she needed CPAP with supplement O2 therapy, in which she has been non-compliant due to "choking sensation" when using it. Patient has history of chronic anemia, ?needed BM biopsy in the past, lost to follow up, s/ p transfusions in the past, endorses chronic SOB which is grossly unchanged from prior, (endorses baseline poor exercise tolerance 2/2 multiple comorbidities and obesity). In the past patient's transfusion threshold was 8GM/ dL. ET markedly limited d/t morbid obesity and chronic b/l knee pain. Denies CP /LOC/syncope/fall/abdominal pain/urinary or bowel changes/ANNE/vision changes. PE GA morbidly obese, AAox3, speaking in full sentences HEENT markedly wide neck circumference, NC/AT, EOMI, dry MM Chest CTAB, poor inspiratory effort, no crackles or wheezing CVS S1, S2+, soft ZEINAB+ Abd morbidly obese, grossly soft, NT, BS+, no guarding Ext 2+ pitting edema, no calf tenderness, s/p L TKR scar Vital Signs - 24 hr 05/01/19 05/01/19 11:52 16:45 Temperature 98.2 F Pulse Rate 79 Pulse Rate [ 74 Left] Respiratory 20 18 Rate Blood Pressure 152/58 L Blood Pressure 161/54 L [Right Arm] O2 Sat by Pulse 97 96 Oximetry (%) Laboratory Results - last 24 hr 05/01/19 05/01/19 05/01/19 12:30 12:30 12:30 WBC 8.1 RBC 2.81 L Hgb 8.5 L Hct 25.6 L D MCV 91.0 MCH 30.3 MCHC 33.3 RDW 13.7 D Plt Count 219 MPV 11.4 H D Absolute Neuts (auto) 6.4 Neutrophils % 78.4 Lymphocytes % 12.7 Monocytes % 6.4 Eosinophils % 1.7 Basophils % 0.8 Nucleated RBC % 0 PT with INR 12.90 INR 1.09 Sodium 141 Potassium 5.3 H Chloride 109 H Carbon Dioxide 26 Anion Gap 5 L BUN 37.2 H Creatinine 1.3 Est GFR (CKD-EPI)AfAm 48.47 Est GFR (CKD-EPI)NonAf 41.82 POC Glucometer Random Glucose 319 H Calcium 8.8 Total Bilirubin 0.3 AST 10 L ALT 15 Alkaline Phosphatase 73 Troponin I 0.03 B-Natriuretic Peptide 2340.9 H Total Protein 6.8 Albumin 2.8 L Blood Type Antibody Screen Crossmatch 05/01/19 05/01/19 12:30 12:39 WBC RBC Hgb Hct MCV MCH MCHC RDW Plt Count MPV Absolute Neuts (auto) Neutrophils % Lymphocytes % Monocytes % Eosinophils % Basophils % Nucleated RBC % PT with INR INR Sodium Potassium Chloride Carbon Dioxide Anion Gap BUN Creatinine Est GFR (CKD-EPI)AfAm Est GFR (CKD-EPI)NonAf POC Glucometer 259 Random Glucose Calcium Total Bilirubin AST ALT Alkaline Phosphatase Troponin I B-Natriuretic Peptide Total Protein Albumin Blood Type O POSITIVE Antibody Screen Negative Crossmatch See Detail Home Medications Medication Instructions Recorded Atorvastatin Ca [Lipitor] 80 mg PO HS 08/09/18 Ferrous Sulfate 325 mg PO DAILY 08/09/18 Linaclotide [Linzess] 290 mcg PO DAILY 08/09/18 Furosemide [Lasix -] 40 mg PO DAILY #30 tablet MDD 1 08/10/18 Aspirin Coated [Ecotrin -] 81 mg PO DAILY tablet.ec 08/12/18 Insulin Lispro Protamin/Lispro 30 units SQ BID 10/08/18 [Humalog Mix 50-50 Kwikpen] Metoprolol Succinate 1 tab PO DAILY 10/08/18 Albuterol 2.5/Ipratropium 0.5 1 amp NEB Q6H PRN #120 amp 11/13/18 [Duoneb -] Current Medications Generic Name Dose Route Start Last Admin Trade Name Freq PRN Reason Stop Dose Admin Albuterol/Ipratropium 1 amp 05/01/19 20:22 Duoneb - NEB Q4H PRN SHORTNESS OF BREATH Ascorbic Acid 500 mg 05/01/19 22:00 Vitamin C - PO BID ALEE Aspirin 81 mg 05/02/19 10:00 Ecotrin - PO DAILY ALEE Atorvastatin Calcium 80 mg 05/01/19 22:00 Lipitor - PO HS ALEE Docusate Sodium 100 mg 05/02/19 10:00 Colace - PO DAILY ALEE Ferrous Sulfate 325 mg 05/01/19 22:00 Feosol - PO BID ALEE Furosemide 40 mg 05/02/19 10:00 Lasix - PO DAILY ALEE Insulin Aspart 1 vial 05/01/19 22:00 Novolog Vial Sliding Scale - SQ ACHS ALEE Protocol Metoprolol Succinate 50 mg 05/02/19 10:00 Toprol Xl - PO DAILY ALEE Polyethylene Glycol 17 gm 05/02/19 10:00 Miralax (For Daily Use) - PO DAILY ALEE Senna 1 tab 05/01/19 22:00 Senna - PO HS ALEE A/P: 68 F h/o morbid obesity, TERENCE, ?OHS, HFpEF, IDDM, CAD s/p stents, HTN, HLD, chronic anemia and asthma presents after an episode of nocturnal dyspnea and associated R neck pain which woke her up in the middle of the night. Nocturnal dyspnea ?2/2 TERENCE/OHS with apneic event due to non-compliance of CPAP Severe TERENCE on recent study (AHI 43 with significant desaturations) Start overnight CPAP, reinforce compliance, NC O2 PRN to maintain O2 sat >90% Pulmonary consult: Dr Amaro CAD s/p stent 04/2017 off plavix, resume ASA, no reported bleeding, pending FOBT Resume BB, EKG reviewed no acute ischemic changes, trops neg. x1, obtain another set HFpEF last echo/cardiology evaluation showing moderate TR, elevated PSAP, and normal EF lungs CTAB on exam but showing chronic LE edema indicative of RSHF Avoid transfusion at this time as baseline Hgb threshold is 8 GM/dL, and patient is at 8.5 currently, her symptoms of SOB/VASQUEZ are chronic, and patient endorses sedentary lifestyle and markedly limited ET at baseline. 1 dose of IV lasix given in ED, resume PO lasix in AM COnt. BB/diuretic, no ARB/PETE ?due to hyperkalemia HTn restart BP homes as tolerated, increase BB as needed Chronic anemia ?due to TOMÁS v.s. ACD due to CKD Hgb threshold 8, now 8.5, sobia defer transfusion right now to avoid fluid overload Heme-onc evaluation: Dr Graham T2DM ISS, supplement basal insulin as needed Send A1c, lipids/TSH HLD resume statin Morbid obesity counseled patient on diet, exercise, and weight loss Asthma not in acute exacerbation Albuterol PRN for SOB DVT ppx: SCD/ALEE for now, (pending FOBT) FEN: avoid IVF/daily chem/Na/DM diet Visit type - Emergency Visit Emergency Visit: Yes ED Registration Date: 05/01/19 Care time: The patient presented to the Emergency Department on the above date and was hospitalized for further evaluation of their emergent condition. - New Patient This patient is new to me today: Yes Date on this admission: 05/01/19 - Critical Care Critical Care patient: No
[2019-05-01] MEDS ORDERED: ALBUTEROL SO4 2.5/IPRATROPIUM 0.5 INH SOL 3 ML VIAL.NEB. NEB ONE ×2 (21:00→22:49)
[2019-05-01] MEDS: SENNOSIDES 8.6MG TABLET (FP) PO SCH (22:30)
[2019-05-01] MEDS: ATORVASTATIN CA 80 MG TABLET (FP) PO SCH (22:30)
[2019-05-01] MEDS: FERROUS SO4 325 MG TABLET (FP) PO SCH (22:30)
[2019-05-01] MEDS ORDERED: SENNOSIDES 8.6MG TABLET (FP) PO ONE (22:50)
[2019-05-01] MEDS ORDERED: ATORVASTATIN CA 80 MG TABLET (FP) ONE (22:50)
[2019-05-01] MEDS ORDERED: FERROUS SO4 325 MG TABLET (FP) ONE (22:50)
[2019-05-01] MEDS: INSULIN SLIDING SCALE (NOVOLOG) 1 VIAL SQ SCH (23:25)
[2019-05-02] MEDS: ASCORBIC ACID 500 MG TABLET (FP) PO SCH ×3 (00:30→21:11)
[2019-05-02] MEDS: INSULIN SLIDING SCALE (NOVOLOG) 1 VIAL SQ SCH ×4 (06:47→21:12)
--- NOTE | 2019-05-02 08:03 | CON.GI ---
Consult Consult Specialty:: GI Referred by:: Dr Philip Reason for Consultation:: Chronic Anemia - History of Present Illness History of Present Illness: Patient is 68 y/o female with past medical history of TERENCE, OHS, HFpEF, IDDM, CAD s/p stent, HTN, HLD, anemia. Consult was placed for chronic anemia. Patient woke up with dyspnea and presented to ER. Labs on admission from ER show Hg 8.5, in 10/2018 Hg 11.2. Currently is on Ferrous Sulfate BID. Her last EGD on 10/2018 shows normal stomach mucosa, normal esophagus mucosa, normal duodenol mucosa. Colonoscopy 05/2017 shows diminutive polyp in ascending colon Currently denies rectal bleeding, melena, or blood in stool. Her last admission in 10/2018 she was instructed to have endoscopic video capsule at [facility] performed to r/o small bowel source as cause of anemia. She states she had the procedure performed at [facility] but does not remember the doctors name or when it was performed. - History Source History Provided By: Patient Limitations to Obtaining History: No Limitations - Past Medical History Cardio/Vascular: Yes: CAD (S/P STENTING), HTN, Hyperlipdemia Pulmonary: Yes: Asthma, Bronchitis, Pneumonia, Sleep Apnea Gastrointestinal: Yes: GERD Renal/: Yes: Renal Inusuff Musculoskeletal: Yes: Osteoarthritis Endocrine: Yes: Diabetes Mellitus - Alcohol/Substance Use Hx Alcohol Use: No History of Substance Use: reports: None - Smoking History Smoking history: Never smoked Have you smoked in the past 12 months: No Aproximately how many cigarettes per day: 0 - Social History Usual Living Arrangement: With Spouse ADL: Family Assistance Occupation: [employer] History of Recent Travel: No Home Medications - Allergies Allergies/Adverse Reactions: Allergies Allergy/AdvReac Type Severity Reaction Status Date / Time Penicillins Allergy Difficulty Verified 11/05/18 11:31 Breathing - Home Medications Home Medications: Ambulatory Orders Atorvastatin Ca [Lipitor] 80 mg PO HS 08/09/18 Ferrous Sulfate 325 mg PO DAILY 08/09/18 Linaclotide [Linzess] 290 mcg PO DAILY 08/09/18 Furosemide [Lasix -] 40 mg PO DAILY #30 tablet MDD 1 08/10/18 Aspirin Coated [Ecotrin -] 81 mg PO DAILY tablet.ec 08/12/18 Insulin Lispro Protamin/Lispro [Humalog Mix 50-50 Kwikpen] 30 units SQ BID 10/08 Metoprolol Succinate 1 tab PO DAILY 10/08/18 Albuterol 2.5/Ipratropium 0.5 [Duoneb -] 1 amp NEB Q6H PRN #120 amp 11/13/18 Review of Systems - Review of Systems Constitutional: reports: No Symptoms Eyes: reports: No Symptoms HENT: reports: No Symptoms Neck: reports: No Symptoms Cardiovascular: reports: No Symptoms Respiratory: reports: SOB Gastrointestinal: reports: No Symptoms Genitourinary: reports: No Symptoms Breasts: reports: No Symptoms Reported Musculoskeletal: reports: No Symptoms Integumentary: reports: No Symptoms Neurological: reports: No Symptoms Endocrine: reports: No Symptoms Hematology/Lymphatic: reports: No Symptoms Psychiatric: reports: No Symptoms Physical Exam-GI Vital Signs: Vital Signs Temperature 97.8 F 05/02/19 04:00 Pulse Rate 73 05/02/19 04:00 Respiratory Rate 16 05/02/19 04:00 Blood Pressure 126/73 05/02/19 04:00 O2 Sat by Pulse Oximetry (%) 96 05/01/19 16:45 Constitutional: Yes: No Distress, Calm, Obese Eyes: Yes: Conjunctiva Clear HENT: Yes: Atraumatic Cardiovascular: Yes: Regular Rate and Rhythm Respiratory: Yes: Regular, CTA Bilaterally Gastrointestinal Inspection: Yes: WNL. No: Ascites, Distention, Hernia, Scars, Other ...Auscultate: Yes: Normoactive Bowel Sounds. No: Hyperactive Bowel Sounds, Hypoactive Bowel Sounds, No Bowel Sounds, Other ...Palpate: Yes: Soft. No: Firm/Rigid, Guarding, Hepatomegaly, Mass, Pulsatile Mass, Splenomegaly, Tenderness, Tenderness, Epigastium, Tenderness, Rebound, Other ...Percussion: Yes: Tympanitic. No: Dullness, Fluid Wave, Other Neurological: Yes: Alert, Oriented Psychiatric: Yes: Alert, Oriented Labs: CBC, BMP 05/01/19 12:30 05/01/19 12:30 INR, PTT INR 1.09 (0.83-1.09) 05/01/19 12:30 Problem List - Problems (1) Anemia Assessment/Plan: >Hg 8.2 on admission, possibly secondary to Bone marrow pathology >monitor Hg daily and transfuse for Hg <7.0 to avoid fluid overload >will attempt to get Video Endoscopic Capsule results from [facility] according to his son this was normal >EGD from 05/2017 reviewed and shows no source of bleeding Code(s): D64.9 - ANEMIA, UNSPECIFIED Qualifiers: Anemia type: unspecified type Qualified Code(s): D64.9 - Anemia, unspecified
--- NOTE | 2019-05-02 09:50 | PN ---
Progress Note, Physician Chief Complaint: SOB Chronic Anemia History of Present Illness: Previous notes and events reviewed awake and alert NAD denies SOB, states her breathing is better denies chest pain, dizziness Hg 8.5 - Current Medication List Current Medications: Active Medications Albuterol/Ipratropium (Duoneb -) 1 amp NEB Q4H PRN PRN Reason: SHORTNESS OF BREATH Ascorbic Acid (Vitamin C -) 500 mg PO BID [facility] Last Admin: 05/02/19 00:30 Dose: Not Given Aspirin (Ecotrin -) 81 mg PO DAILY [facility] Atorvastatin Calcium (Lipitor -) 80 mg PO HS [facility] Last Admin: 05/01/19 22:30 Dose: 80 mg Docusate Sodium (Colace -) 100 mg PO DAILY [facility] Ferrous Sulfate (Feosol -) 325 mg PO BID [facility] Last Admin: 05/01/19 22:30 Dose: 325 mg Furosemide (Lasix -) 40 mg PO DAILY [facility] Insulin Aspart (Novolog Vial Sliding Scale -) 1 vial SQ [facility]; Protocol Last Admin: 05/02/19 06:47 Dose: 4 units Metoprolol Succinate (Toprol Xl -) 50 mg PO DAILY [facility] Polyethylene Glycol (Miralax (For Daily Use) -) 17 gm PO DAILY [facility] Senna (Senna -) 1 tab PO [facility] Last Admin: 05/01/19 22:30 Dose: 1 tab - Objective Vital Signs: Vital Signs Temperature 97.9 F 05/02/19 07:05 Pulse Rate 70 05/02/19 07:05 Respiratory Rate 18 05/02/19 07:05 Blood Pressure 141/80 05/02/19 07:05 O2 Sat by Pulse Oximetry (%) 96 05/02/19 07:05 Constitutional: Yes: No Distress, Calm, Obese Eyes: Yes: Conjunctiva Clear HENT: Yes: Atraumatic Cardiovascular: Yes: Regular Rate and Rhythm Respiratory: Yes: Regular, Diminished Gastrointestinal: Yes: Normal Bowel Sounds, Soft, Abdomen, Obese Musculoskeletal: Yes: WNL Extremities: Yes: WNL Edema: Yes Edema: LLE: Trace, RLE: Trace Neurological: Yes: Alert, Oriented Psychiatric: Yes: Alert, Oriented Labs: CBC, BMP 05/01/19 12:30 05/01/19 12:30 INR, PTT INR 1.09 (0.83-1.09) 05/01/19 12:30 Problem List - Problems (1) Morbid obesity Assessment/Plan: -Dietary consult Code(s): E66.01 - MORBID (SEVERE) OBESITY DUE TO EXCESS CALORIES (2) HORACE (acute kidney injury) Assessment/Plan: -BUN/Cr 37.2/1.3 -monitor renal function daily Code(s): N17.9 - ACUTE KIDNEY FAILURE, UNSPECIFIED (3) Anemia Assessment/Plan: -GI and Hematology consult -Hg 8.5 -monitor Hg daily -transfuse for Hg <7.0 to avoid fluid overload -Stool OB -Anemia profile -Ferrous Sulfate BID Code(s): D64.9 - ANEMIA, UNSPECIFIED Qualifiers: Anemia type: unspecified type Qualified Code(s): D64.9 - Anemia, unspecified (4) CAD (coronary artery disease) Assessment/Plan: -Aspirin Code(s): I25.10 - ATHSCL HEART DISEASE OF [place] CORONARY ARTERY W/O ANG PCTRS (5) COPD (chronic obstructive pulmonary disease) Assessment/Plan: -Pulmonary on board -CXR shows weak inspiratory effort, congestive changes -Bipap prn -O2 via NC prn for SOB -keep SpO2 >90% -bronchodilators Code(s): J44.9 - CHRONIC OBSTRUCTIVE PULMONARY DISEASE, UNSPECIFIED (6) DM2 (diabetes mellitus, type 2) Assessment/Plan: -[facility] -HgA1c 9.1% 10/2018 -diabetic diet Code(s): E11.9 - TYPE 2 DIABETES MELLITUS WITHOUT COMPLICATIONS (7) HLD (hyperlipidemia) Assessment/Plan: -Atorvastatin Code(s): E78.5 - HYPERLIPIDEMIA, UNSPECIFIED (8) Hypertension Code(s): I10 - ESSENTIAL (PRIMARY) HYPERTENSION (9) Acute exacerbation of CHF (congestive heart failure) Assessment/Plan: -Pulmonary on board -CXR shows congestive changes -strict I&Os -fluid restriction -Furosemide -BNP 2340.9 Code(s): I50.9 - HEART FAILURE, UNSPECIFIED Qualifiers: Heart failure type: unspecified Qualified Code(s): I50.9 - Heart failure, unspecified Assessment/Plan see problem list dvt ppx
[2019-05-02] MEDS: DOCUSATE SODIUM 100 MG CAPSULE (FP) PO SCH (11:29)
[2019-05-02] MEDS: FUROSEMIDE 40 MG TABLET (FP) PO SCH (11:29)
[2019-05-02] MEDS: FERROUS SO4 325 MG TABLET (FP) PO SCH ×2 (11:29→21:11)
[2019-05-02] MEDS: ASPIRIN COATED 81 MG TABLET.EC PO SCH (11:30)
[2019-05-02] MEDS: POLYETHYLENE GLYCOL 3350 119 GM BTL PO SCH (11:30)
[2019-05-02 12:11] LABS: HEMATOCRIT 26.5 % (32.4-45.2); HEMOGLOBIN 8.7 GM/dL (10.7-15.3); MCH 29.4 pg (25.7-33.7); MCHC 32.7 g/dl (32.0-36.0); MEAN CELL VOLUME 89.8 fl (80-96); MEAN PLT VOLUME 11.1 fl (7.5-11.1); PLATELET COUNT 230 K/MM3 (134-434); RBC 2.95 M/mm3 (3.60-5.2); RDW 13.7 % (11.6-15.6); WHITE BLOOD COUNT 7.4 K/mm3 (4.0-10.0)
[2019-05-02 12:38] LABS: ALBUMIN 3.1 g/dl (3.4-5.0); BILIRUBIN,TOTAL 0.4 mg/dL (0.2-1); BLOOD UREA NITROGEN 37.4 mg/dL (7-18); CALCIUM 8.9 mg/dL (8.5-10.1); CREATININE 1.3 mg/dL (0.55-1.3); POTASSIUM 4.6 mmol/L (3.5-5.1)
--- NOTE | 2019-05-02 13:02 | CON.PULM ---
Consult Consult Specialty:: PULM/CCM Referred by:: LUCILA Reason for Consultation:: SOB - History of Present Illness Chief Complaint: SOB History of Present Illness: 68 F, anemia (requiring blood transfusions), diabetes, hypertension, hyperlipidemia, previous AMI, CAD, Severe OSAS diagnosed by NPSG on 11/12: (RDI = 43.8 and severe oxygen desaturation to 57%), supposed history of asthma ( never intubated, unknown PEF, not steroid dependent, rare use of BD TX). Admitted via the ER due to after an episode of nocturnal dyspnea and Right neck pain which woke her from her sleep. She also reports the sensation of waking up "gasping for air". No significant cough or sputum production. No wheezing. No fever or chills. No travel history or sick contacts. CXR: pulmonary vascular congestion - History Source History Provided By: Patient Limitations to Obtaining History: No Limitations - Past Medical History Cardio/Vascular: Yes: CAD (S/P STENTING), HTN, Hyperlipdemia Pulmonary: Yes: Asthma, Bronchitis, Pneumonia, Sleep Apnea Gastrointestinal: Yes: GERD Renal/: Yes: Renal Inusuff Musculoskeletal: Yes: Osteoarthritis Endocrine: Yes: Diabetes Mellitus - Alcohol/Substance Use Hx Alcohol Use: No History of Substance Use: reports: None - Smoking History Smoking history: Never smoked Have you smoked in the past 12 months: No Aproximately how many cigarettes per day: 0 - Social History Usual Living Arrangement: With Spouse ADL: Family Assistance Occupation: [employer] History of Recent Travel: No Home Medications - Allergies Allergies/Adverse Reactions: Allergies Allergy/AdvReac Type Severity Reaction Status Date / Time Penicillins Allergy Difficulty Verified 11/05/18 11:31 Breathing - Home Medications Home Medications: Ambulatory Orders Atorvastatin Ca [Lipitor] 80 mg PO HS 08/09/18 Ferrous Sulfate 325 mg PO DAILY 08/09/18 Linaclotide [Linzess] 290 mcg PO DAILY 08/09/18 Furosemide [Lasix -] 40 mg PO DAILY #30 tablet MDD 1 08/10/18 Aspirin Coated [Ecotrin -] 81 mg PO DAILY tablet.ec 08/12/18 Insulin Lispro Protamin/Lispro [Humalog Mix 50-50 Kwikpen] 30 units SQ BID 10/08 Metoprolol Succinate 1 tab PO DAILY 10/08/18 Albuterol 2.5/Ipratropium 0.5 [Duoneb -] 1 amp NEB Q6H PRN #120 amp 11/13/18 Physical Exam Vital Sings: Vital Signs Temperature 98.1 F 05/02/19 12:19 Pulse Rate 74 05/02/19 12:19 Respiratory Rate 16 05/02/19 12:19 Blood Pressure 134/62 05/02/19 12:19 O2 Sat by Pulse Oximetry (%) 95 05/02/19 12:19 Constitutional: Yes: No Distress, Obese Eyes: Yes: Conjunctiva Clear, EOM Intact HENT: Yes: Atraumatic, Normocephalic Neck: Yes: Supple, Trachea Midline Cardiovascular: Yes: Regular Rate and Rhythm Respiratory: Yes: Diminished, Rales, Rhonchi. No: Accessory Muscle Use, SOB, SOB on Exertion, Stridor, Tachypnea, Wheezes ...Inspection: Yes: WNL ...Clubbing: No Gastrointestinal: Yes: Normal Bowel Sounds, Soft, Abdomen, Obese Renal/: Yes: WNL Musculoskeletal: Yes: WNL Extremities: Yes: WNL Edema: Yes Peripheral Pulses WNL: Yes Integumentary: Yes: WNL Neurological: Yes: WNL, Alert, Oriented ...Motor Strength: WNL Psychiatric: Yes: WNL, Alert, Oriented Labs: CBC, BMP 05/02/19 11:43 05/02/19 11:43 Imaging - Results Chest X-ray: Report Reviewed, Image Reviewed Problem List - Problems (1) Morbid obesity Code(s): E66.01 - MORBID (SEVERE) OBESITY DUE TO EXCESS CALORIES (2) Shortness of breath Code(s): R06.02 - SHORTNESS OF BREATH (3) Symptomatic anemia Code(s): D64.9 - ANEMIA, UNSPECIFIED (4) Acute exacerbation of CHF (congestive heart failure) Code(s): I50.9 - HEART FAILURE, UNSPECIFIED Qualifiers: Heart failure type: unspecified Qualified Code(s): I50.9 - Heart failure, unspecified (5) Anemia Code(s): D64.9 - ANEMIA, UNSPECIFIED Qualifiers: Anemia type: unspecified type Qualified Code(s): D64.9 - Anemia, unspecified (6) Asthma Code(s): J45.909 - UNSPECIFIED ASTHMA, UNCOMPLICATED (7) CAD (coronary artery disease) Code(s): I25.10 - ATHSCL HEART DISEASE OF [place] CORONARY ARTERY W/O ANG PCTRS (8) CKD (chronic kidney disease) Code(s): N18.9 - CHRONIC KIDNEY DISEASE, UNSPECIFIED (9) DM2 (diabetes mellitus, type 2) Code(s): E11.9 - TYPE 2 DIABETES MELLITUS WITHOUT COMPLICATIONS (10) Dyspnea on exertion Code(s): R06.09 - OTHER FORMS OF DYSPNEA (11) HLD (hyperlipidemia) Code(s): E78.5 - HYPERLIPIDEMIA, UNSPECIFIED (12) Hypertension Code(s): I10 - ESSENTIAL (PRIMARY) HYPERTENSION (13) Penicillin allergy Code(s): Z88.0 - ALLERGY STATUS TO PENICILLIN (14) Sleep apnea Code(s): G47.30 - SLEEP APNEA, UNSPECIFIED Assessment/Plan The patient previously refused home PAP therapy. Was given a device by her PMD and returned it as she says should could not tolerate the mask. Risks and benefits were explained. Supplemental O2 as needed Lasix. She is comfortable but if may need to change to IVP Daily weights Follow I & O No smoking counseled Normal transfusion thresholds BD TX PRN Can order PAP device while admitted but the patient refuses. Risks and benefits were explained in detail. Will follow Thank you. Dr Amaro
--- NOTE | 2019-05-02 14:43 | CONSULT ---
Consultation: CONSULT SERVICE: Hematology/Oncology Resident HISTORY OF PRESENT ILLNESS: 68yo F with h/o TERENCE, Obesity, HFpEF, CAD s/p PCI stenting, Type II DM, HTN, HLD, and chronic anemia who presents to this facility originally due to shortness of breath. Patient known to service where we saw her previously for severe anemia. At that time it was decided that she suffered from anemia of chronic disease with iron deficiency anemia. We were asked to medically evaluate this patient due to normocytic anemia. Pt has been seen by GI who is reviewing results of capsule endoscopy performed at [facility]. Previously, pt's protein studies were performed on 08/2018 which were negative. Currently pt feels that her SOB has resolved and denies any complaints at this time. Pt has never had a bleeding issue and denies any hemoptysis, melena, hematochezia, gingival bleeding. PMHx: As above PSHx: PCI stenting remotely SoHx: tobacco - Denies Alcohol - Denies Drugs - Denies Family Hx: Diabetes: Mother (: DM II complications), Sister (6, 1 of old age), Other: Father (: CVA), Mother, Brother (3, 2 from "Old age", 1 from Lung Ca), Sister, Son (5, healthy), Daughter (1, healthy) REVIEW OF SYSTEMS: As per HPI PHYSICAL EXAMINATION Vital Signs - 24 hr 05/01/19 05/02/19 05/02/19 16:45 04:00 07:05 Temperature 97.8 F 97.9 F Pulse Rate 73 Pulse Rate [ 74 70 Left] Respiratory 18 16 18 Rate Blood Pressure 126/73 Blood Pressure 161/54 L 141/80 [Right Arm] O2 Sat by Pulse 96 96 Oximetry (%) 05/02/19 05/02/19 05/02/19 10:35 11:13 12:19 Temperature 98.0 F 98.1 F 98.1 F Pulse Rate 74 74 Pulse Rate [ 71 Left] Respiratory 18 16 16 Rate Blood Pressure 134/62 134/62 Blood Pressure 144/82 [Right Arm] O2 Sat by Pulse 96 95 Oximetry (%) GENERAL: Awake, alert, and fully oriented, in no acute distress. HEAD: Normal with no signs of trauma. EYES: ANN, EOMI, sclera anicteric, conjunctiva clear without any pallor. No lid lag. EARS, NOSE, THROAT: Eoropharynx clear without exudates. Moist mucous membranes. NECK: No JVD, no lymphadenopathy LUNGS: CTA bilaterally however distant breath sounds. No wheezes, and no crackles. No accessory muscle use. HEART: RRR, normal S1 and S2 without murmur ABDOMEN: Soft, obese, nontender, not distended, normoactive bowel sounds, no guarding. No hepatomegaly. EXTREMITIES: 2+ DP pulses, warm, well-perfused. No calf tenderness. No peripheral edema. PSYCHIATRIC: Cooperative. Good eye contact. Appropriate mood and affect. SKIN: Warm, dry, no rashes or lesions noted. Laboratory Results - last 24 hr 05/01/19 05/01/19 05/01/19 12:30 12:30 12:39 WBC RBC Hgb Hct MCV MCH MCHC RDW Plt Count MPV Sodium 141 Potassium 5.3 H Chloride 109 H Carbon Dioxide 26 Anion Gap 5 L BUN 37.2 H Creatinine 1.3 Est GFR (CKD-EPI)AfAm 48.47 Est GFR (CKD-EPI)NonAf 41.82 POC Glucometer 259 Random Glucose 319 H Calcium 8.8 Total Bilirubin 0.3 AST 10 L ALT 15 Alkaline Phosphatase 73 Troponin I 0.03 B-Natriuretic Peptide 2340.9 H Total Protein 6.8 Albumin 2.8 L Blood Type O POSITIVE Antibody Screen Negative Crossmatch See Detail 05/01/19 05/02/19 05/02/19 23:19 05:53 11:26 WBC RBC Hgb Hct MCV MCH MCHC RDW Plt Count MPV Sodium Potassium Chloride Carbon Dioxide Anion Gap BUN Creatinine Est GFR (CKD-EPI)AfAm Est GFR (CKD-EPI)NonAf POC Glucometer 262 169 220 Random Glucose Calcium Total Bilirubin AST ALT Alkaline Phosphatase Troponin I B-Natriuretic Peptide Total Protein Albumin Blood Type Antibody Screen Crossmatch 05/02/19 05/02/19 11:43 11:43 WBC 7.4 RBC 2.95 L Hgb 8.7 L Hct 26.5 L MCV 89.8 MCH 29.4 MCHC 32.7 RDW 13.7 Plt Count 230 MPV 11.1 Sodium 139 Potassium 4.6 Chloride 105 Carbon Dioxide 24 Anion Gap 9 BUN 37.4 H Creatinine 1.3 Est GFR (CKD-EPI)AfAm 48.47 Est GFR (CKD-EPI)NonAf 41.82 POC Glucometer Random Glucose 225 H Calcium 8.9 Total Bilirubin 0.4 AST 9 L ALT 15 Alkaline Phosphatase 75 Troponin I B-Natriuretic Peptide Total Protein 7.0 Albumin 3.1 L Blood Type Antibody Screen Crossmatch Active Medications Generic Name Dose Route Start Last Admin Trade Name Eddi PRN Reason Stop Dose Admin Albuterol/Ipratropium 1 amp 05/01/19 20:22 Duoneb - NEB Q4H PRN SHORTNESS OF BREATH Ascorbic Acid 500 mg 05/01/19 22:00 05/02/19 11:29 Vitamin C - PO 500 mg BID ALEE Administration Aspirin 81 mg 05/02/19 10:00 05/02/19 11:30 Ecotrin - PO 81 mg DAILY ALEE Administration Atorvastatin Calcium 80 mg 05/01/19 22:00 05/01/19 22:30 Lipitor - PO 80 mg HS ALEE Administration Docusate Sodium 100 mg 05/02/19 10:00 05/02/19 11:29 Colace - PO 100 mg DAILY ALEE Administration Ferrous Sulfate 325 mg 05/01/19 22:00 05/02/19 11:29 Feosol - PO 325 mg BID ALEE Administration Furosemide 40 mg 05/02/19 10:00 05/02/19 11:29 Lasix - PO 40 mg DAILY ALEE Administration Insulin Aspart 1 vial 05/01/19 22:00 05/02/19 11:30 Novolog Vial Sliding Scale - SQ 6 units ACHS ALEE Administration Protocol Metoprolol Succinate 50 mg 05/02/19 10:00 05/02/19 11:30 Toprol Xl - PO 50 mg DAILY [facility]E Administration Polyethylene Glycol 17 gm 05/02/19 10:00 05/02/19 11:30 Miralax (For Daily Use) - PO Not Given DAILY [facility]E Senna 1 tab 05/01/19 22:00 05/01/19 22:30 Senna - PO 1 tab HS [facility]E Administration ASSESSMENT/PLAN: Normocytic anemia Paroxysmal nocturnal dyspnea TERENCE with OHS --Iron studies 10/2018 performed risk control representative of anemia of chronic disease with normal ferritin and low iron and TIBC --Transfusion threshols >8gm due to known cardiac disease history --Patient's respiratory problems likely related to her ongoing noncompliance with CPAP therapy for her TERENCE/OHS at night and defer to pulmonology Case to be discussed Arden Gamboa, DO - IM PGY-3 Visit type - Emergency Visit Emergency Visit: Yes ED Registration Date: 05/01/19 Care time: The patient presented to the Emergency Department on the above date and was hospitalized for further evaluation of their emergent condition. - New Patient This patient is new to me today: Yes Date on this admission: 05/02/19 - Critical Care Critical Care patient: No ATTENDING PHYSICIAN STATEMENT I saw and evaluated the patient. I reviewed the resident's note and discussed the case with the resident. I agree with the resident's findings and plan as documented. SUBJECTIVE: OBJECTIVE: ASSESSMENT AND PLAN:
--- NOTE | 2019-05-02 18:16 | PN ---
Teaching Attending Note Name of Resident: Arden Gamboa ATTENDING PHYSICIAN STATEMENT I saw and evaluated the patient. I reviewed the resident's note and discussed the case with the resident. I agree with the resident's findings and plan as documented. SUBJECTIVE: Doing well OBJECTIVE: Last Vital Signs Temp Pulse Resp BP Pulse Ox 98.5 F 73 20 155/61 95 05/02/19 18:00 05/02/19 18:00 05/02/19 18:00 05/02/19 18:00 05/02/19 12:19 Gen: Doing well HEENT: NAD Abd: Soft, NT, ND Extremities: No edema Neuro: wnl ASSESSMENT AND PLAN: 68 y/o F with h/o TERENCE, Obesity, HFpEF, CAD s/p PCI stenting, Type II DM, HTN, HLD, and chronic anemia who presents to this facility originally due to shortness of breath. Patient known to service where we saw her previously for severe anemia. At that time it was decided that she suffered from anemia of chronic disease with iron deficiency anemia. We were asked to medically evaluate this patient due to normocytic anemia. Pt has been seen by GI who is reviewing results of capsule endoscopy performed at [facility]. Previously, pt's protein studies were performed on 08/2018 which were negative. Currently pt feels that her SOB has resolved and denies any complaints at this time. Pt has never had a bleeding issue and denies any hemoptysis, melena, hematochezia, gingival bleeding. Plan: 1) Repeat Iron Studies. Guaiac stools. Follow with Dr. Mccabe/Dr. Graham 2) Agree with Dr. Gamboa and rest of recommendations per his note
[2019-05-02] MEDS: SENNOSIDES 8.6MG TABLET (FP) PO SCH (21:11)
[2019-05-02] MEDS: ATORVASTATIN CA 80 MG TABLET (FP) PO SCH (21:12)
--- NOTE | 2019-05-03 00:13 | CONSULT ---
Consult Consult Specialty:: Endocrine Referred by:: Rick Lawler md. Reason for Consultation:: dmt2 uncontrolled - History of Present Illness Chief Complaint: high sugars,short of breath History of Present Illness: 68 yfemale,pmh DMT2,morbid obesity,TERENCE,htn,CAD sp stent placement,chf,hld,has recurrent anemia,dyspnea,chest pain and weakness admitted for shortness of breath and chest heaviness,found to have hb 8gm,and fluid overloaded.denies nausea vomiting fever or chills. - Past Medical History Cardio/Vascular: Yes: CAD (S/P STENTING), HTN, Hyperlipdemia Pulmonary: Yes: Asthma, Bronchitis, Pneumonia, Sleep Apnea Gastrointestinal: Yes: GERD Renal/: Yes: Renal Inusuff Musculoskeletal: Yes: Osteoarthritis Endocrine: Yes: Diabetes Mellitus - Alcohol/Substance Use Hx Alcohol Use: No History of Substance Use: reports: None - Smoking History Smoking history: Never smoked Have you smoked in the past 12 months: No Aproximately how many cigarettes per day: 0 - Social History Usual Living Arrangement: With Spouse ADL: Family Assistance Occupation: [employer] History of Recent Travel: No Home Medications - Allergies Allergies/Adverse Reactions: Allergies Allergy/AdvReac Type Severity Reaction Status Date / Time Penicillins Allergy Difficulty Verified 11/05/18 11:31 Breathing - Home Medications Home Medications: Ambulatory Orders Atorvastatin Ca [Lipitor] 80 mg PO HS 08/09/18 Ferrous Sulfate 325 mg PO DAILY 08/09/18 Linaclotide [Linzess] 290 mcg PO DAILY 08/09/18 Furosemide [Lasix -] 40 mg PO DAILY #30 tablet MDD 1 08/10/18 Aspirin Coated [Ecotrin -] 81 mg PO DAILY tablet.ec 08/12/18 Insulin Lispro Protamin/Lispro [Humalog Mix 50-50 Kwikpen] 30 units SQ BID 10/08 Metoprolol Succinate 1 tab PO DAILY 10/08/18 Albuterol 2.5/Ipratropium 0.5 [Duoneb -] 1 amp NEB Q6H PRN #120 amp 11/13/18 Review of Systems - Review of Systems Constitutional: reports: Weakness Eyes: reports: Blurred Vision HENT: reports: No Symptoms Neck: reports: No Symptoms Cardiovascular: reports: Shortness of Breath Respiratory: reports: Exercise Intolerance, SOB on Exertion Gastrointestinal: reports: Bloating, Constipation Genitourinary: reports: No Symptoms Breasts: reports: No Symptoms Reported Musculoskeletal: reports: Extremity Pain, Muscle Pain, Muscle Cramps, Muscle Weakness Neurological: reports: Numbness, Weakness Endocrine: reports: Unexplained Weight Gain Physical Exam Vital Signs: Vital Signs Temperature 98.4 F 05/02/19 22:00 Pulse Rate 75 05/02/19 22:00 Respiratory Rate 20 05/02/19 22:00 Blood Pressure 117/49 L 05/02/19 22:00 O2 Sat by Pulse Oximetry (%) 92 L 05/02/19 21:00 Constitutional: Yes: Anxious Eyes: Yes: EOM Intact HENT: Yes: Normocephalic Neck: Yes: Trachea Midline Cardiovascular: Yes: Tachycardia Respiratory: Yes: Rales Gastrointestinal: Yes: Normal Bowel Sounds, Abdomen, Obese ...Rectal Exam: Yes: Deferred Renal/: Yes: WNL Musculoskeletal: Yes: Joint Stiffness, Muscle Pain Extremities: Yes: Cold Neurological: Yes: Alert, Oriented Labs: CBC, BMP 05/02/19 11:43 05/02/19 11:43 Assessment/Plan Current Active Problems uncontrolled dmt2,diabetic neuropathy TERENCE morbid obiesity Morbid obesity (Acute) Shortness of breath (Acute) Symptomatic anemia (Acute) Abnormal Lab Results 05/02/19 05/02/19 11:43 11:43 RBC 2.95 L Hgb 8.7 L Hct 26.5 L BUN 37.4 H Random Glucose 225 H AST 9 L Albumin 3.1 L Laboratory Results - last 24 hr 05/02/19 05/02/19 05/02/19 05:53 11:26 11:43 WBC 7.4 RBC 2.95 L Hgb 8.7 L Hct 26.5 L MCV 89.8 MCH 29.4 MCHC 32.7 RDW 13.7 Plt Count 230 MPV 11.1 Sodium Potassium Chloride Carbon Dioxide Anion Gap BUN Creatinine Est GFR (CKD-EPI)AfAm Est GFR (CKD-EPI)NonAf POC Glucometer 169 220 Random Glucose Calcium Total Bilirubin AST ALT Alkaline Phosphatase Total Protein Albumin 05/02/19 05/02/19 05/02/19 11:43 16:42 21:10 WBC RBC Hgb Hct MCV MCH MCHC RDW Plt Count MPV Sodium 139 Potassium 4.6 Chloride 105 Carbon Dioxide 24 Anion Gap 9 BUN 37.4 H Creatinine 1.3 Est GFR (CKD-EPI)AfAm 48.47 Est GFR (CKD-EPI)NonAf 41.82 POC Glucometer 240 296 Random Glucose 225 H Calcium 8.9 Total Bilirubin 0.4 AST 9 L ALT 15 Alkaline Phosphatase 75 Total Protein 7.0 Albumin 3.1 L plan: bgm qid novlog scale novolog 70/30 tid cortisol am suppression test hem consult
[2019-05-03] MEDS ORDERED: DEXAMETHASONE 0.5 MG TABLET PO ONE (00:30)
[2019-05-03] MEDS ORDERED: INSULIN SLIDING SCALE (NOVOLOG) 1 VIAL SQ SCH (07:00)
[2019-05-03] MEDS ORDERED: INSULIN (NOVOLOG MIX 70/30) 100 UNITS/ML MDV SQ SCH (07:00)
[2019-05-03 07:26] LABS: HEMATOCRIT 25.4 % (32.4-45.2); HEMOGLOBIN 8.5 GM/dL (10.7-15.3); MCHC 33.6 g/dl (32.0-36.0); MEAN CELL VOLUME 89.2 fl (80-96); MEAN PLT VOLUME 10.7 fl (7.5-11.1); PLATELET COUNT 212 K/MM3 (134-434); RBC 2.85 M/mm3 (3.60-5.2); RDW 13.6 % (11.6-15.6)
[2019-05-03] MEDS ORDERED: AMMONIUM LACTATE 12% LOTION 225 GM BOTTLE TP PRN (07:42)
[2019-05-03 07:43] LABS: ALBUMIN 2.9 g/dl (3.4-5.0); BILIRUBIN,TOTAL 0.4 mg/dL (0.2-1); BLOOD UREA NITROGEN 38.3 mg/dL (7-18); CREATININE 1.4 mg/dL (0.55-1.3); POTASSIUM 4.9 mmol/L (3.5-5.1); TOT PROT 6.9 g/dl (6.4-8.2)
--- NOTE | 2019-05-03 07:49 | PN ---
Progress Note, Physician Chief Complaint: PATIENT IN BED UNABLE TO KEEP CPAP/BIPAP MASK ON DUE TO IRRITATED FEELING. C/O PALPITATIONS STERNAL C/O DRY ITCHING OF LOWER EXTREMITIES REPORTS CAPSULE STUDY DONE AT [facility] AND REPORTS THE RESULTS SHOWED NO BLEEDING. - Current Medication List Current Medications: Active Medications Albuterol/Ipratropium (Duoneb -) 1 amp NEB Q4H PRN PRN Reason: SHORTNESS OF BREATH Ascorbic Acid (Vitamin C -) 500 mg PO BID [facility] Last Admin: 05/02/19 21:11 Dose: Not Given Aspirin (Ecotrin -) 81 mg PO DAILY [facility] Last Admin: 05/02/19 11:30 Dose: 81 mg Atorvastatin Calcium (Lipitor -) 80 mg PO HS [facility] Last Admin: 05/02/19 21:12 Dose: 80 mg Docusate Sodium (Colace -) 100 mg PO DAILY [facility] Last Admin: 05/02/19 11:29 Dose: 100 mg Emollient Ointment (Aquaphor -) 1 applic TP BID [facility] Ferrous Sulfate (Feosol -) 325 mg PO BID [facility] Last Admin: 05/02/19 21:11 Dose: 325 mg Furosemide (Lasix -) 40 mg PO DAILY [facility] Last Admin: 05/02/19 11:29 Dose: 40 mg Iron Sucrose 300 mg/ Sodium (Chloride) 250 mls @ 250 mls/hr IVPB ONCE ONE Stop: 05/03/19 08:41 Insulin Aspart (Novolog Mix 70/30 Vial) 45 units SQ BIDAC [facility] Insulin Aspart (Novolog Vial Sliding Scale -) 1 vial SQ ACHS [facility]; Protocol Lactic Acid (Lac-Hydrin 12) 1 applic TP BID PRN PRN Reason: DRY SKIN Metoprolol Succinate (Toprol Xl -) 50 mg PO DAILY [facility] Last Admin: 05/02/19 11:30 Dose: 50 mg Polyethylene Glycol (Miralax (For Daily Use) -) 17 gm PO DAILY [facility] Last Admin: 05/02/19 11:30 Dose: Not Given Senna (Senna -) 1 tab PO HS [facility] Last Admin: 05/02/19 21:11 Dose: 1 tab Triamcinolone Acetonide (Aristocort 0.1% Cream -) 1 applic TP TID [facility] - Objective Vital Signs: Vital Signs Temperature 97.8 F 05/03/19 05:53 Pulse Rate 69 05/03/19 05:53 Respiratory Rate 18 05/03/19 05:53 Blood Pressure 129/35 L 05/03/19 05:53 O2 Sat by Pulse Oximetry (%) 92 L 05/02/19 21:00 Constitutional: Yes: Mild Distress Cardiovascular: Yes: Regular Rate and Rhythm Respiratory: Yes: Diminished, On Nasal O2 Gastrointestinal: Yes: Soft, Abdomen, Obese Genitourinary: Yes: WNL Musculoskeletal: Yes: Muscle Weakness Extremities: Yes: Other Edema: Yes Edema: LLE: 1+, RLE: 1+ Integumentary: Yes: Rash, Venous Stasis Changes Wound/Incision: Yes: Excoriated Neurological: Yes: WNL ...Motor Strength: WNL Psychiatric: Yes: WNL Labs: CBC, BMP 05/03/19 06:40 05/03/19 06:40 INR, PTT INR 1.09 (0.83-1.09) 05/01/19 12:30 Problem List - Problems (1) Morbid obesity Code(s): E66.01 - MORBID (SEVERE) OBESITY DUE TO EXCESS CALORIES (2) Shortness of breath Code(s): R06.02 - SHORTNESS OF BREATH (3) Symptomatic anemia Code(s): D64.9 - ANEMIA, UNSPECIFIED (4) HORACE (acute kidney injury) Code(s): N17.9 - ACUTE KIDNEY FAILURE, UNSPECIFIED (5) Acute exacerbation of CHF (congestive heart failure) Code(s): I50.9 - HEART FAILURE, UNSPECIFIED Qualifiers: Heart failure type: unspecified Qualified Code(s): I50.9 - Heart failure, unspecified (6) Acute hypoxemic respiratory failure Code(s): J96.01 - ACUTE RESPIRATORY FAILURE WITH HYPOXIA (7) Anemia Code(s): D64.9 - ANEMIA, UNSPECIFIED Qualifiers: Anemia type: unspecified type Qualified Code(s): D64.9 - Anemia, unspecified (8) DM2 (diabetes mellitus, type 2) Code(s): E11.9 - TYPE 2 DIABETES MELLITUS WITHOUT COMPLICATIONS (9) Dyspnea on exertion Code(s): R06.09 - OTHER FORMS OF DYSPNEA (10) Sleep apnea Code(s): G47.30 - SLEEP APNEA, UNSPECIFIED Assessment/Plan CAPSULE STUDY AT [facility] PATIENT REPORTS WAS NORMAL NO ACUTE BLEEDS IRON SUCROSE IV X 1 NOW RENAL/CARDIO/HEME FOLLOW UP SHOULD GET A BONE MARROW BIOPSY BUT PATIENT REFUSING BIPAP/CPAP COMPLIANCE STRESSED WITH PATIENT PT/OOB TO CHAIR CORTISOL STUDIES ORDERED BY DR NGO DVT PROPHYLAXIS
[2019-05-03] MEDS ORDERED: IRON SUCROSE INJECTION 300 MG in SODIUM CHLORIDE 235 ML IVPB ONE (08:15)
--- NOTE | 2019-05-03 08:46 | PN.GI ---
GI Progress Note Subjective: Patient noted with Hg 8.5 with this mornings labs. Denies rectal bleeding, blood in stool, melena. Denies abdominal pain, nausea, vomiting. - Objective Vital Signs: Vital Signs Temperature 97.8 F 05/03/19 05:53 Pulse Rate 69 05/03/19 05:53 Respiratory Rate 18 05/03/19 05:53 Blood Pressure 129/35 L 05/03/19 05:53 O2 Sat by Pulse Oximetry (%) 95 05/03/19 07:59 Constitutional: No Distress, Calm, Obese Eyes: Yes: Conjunctiva Clear HENT: Yes: Atraumatic Cardiovascular: Yes: Regular Rate and Rhythm Respiratory: Yes: Regular, CTA Bilaterally Gastrointestinal Inspection: Yes: WNL. No: Ascites, Distention, Hernia, Scars, Other ...Auscultate: Yes: Normoactive Bowel Sounds. No: Hyperactive Bowel Sounds, Hypoactive Bowel Sounds, No Bowel Sounds, Other ...Palpate: Yes: Soft. No: Firm/Rigid, Guarding, Hepatomegaly, Mass, Pulsatile Mass, Splenomegaly, Tenderness, Tenderness, Epigastium, Tenderness, Rebound, Other ...Percussion: Yes: Tympanitic. No: Dullness, Fluid Wave, Other Neurological: Yes: Alert, Oriented Psychiatric: Yes: Alert, Oriented Labs: CBC, BMP 05/03/19 06:40 05/03/19 06:40 INR, PTT INR 1.09 (0.83-1.09) 05/01/19 12:30 Problem List - Problems (1) Anemia Assessment/Plan: >Hg 8.5 >monitor Hg daily and transfuse for Hg <7.0 to avoid fluid overload >will attempt to get Video Endoscopic Capsule results from [facility] >EGD from 05/2017 reviewed and shows no source of bleeding Code(s): D64.9 - ANEMIA, UNSPECIFIED Qualifiers: Qualified Code(s): D64.9 - Anemia, unspecified
--- NOTE | 2019-05-03 08:47 | PN ---
Progress Note (short form) - Note Progress Note: Breathing feels better today. Less SOB. No acute events overnight. Intake & Output 04/30/19 05/01/19 05/02/19 05/03/19 23:59 23:59 23:59 23:59 Intake Total 985 Balance 985 Weight 249 lb 3.2 oz 234 lb 12.8 oz 221 lb 9.6 oz Last Vital Signs Temp Pulse Resp BP Pulse Ox 97.8 F 69 18 129/35 L 95 05/03/19 05:53 05/03/19 05:53 05/03/19 05:53 05/03/19 05:53 05/03/19 07:59 Active Medications Albuterol/Ipratropium (Duoneb -) 1 amp NEB Q4H PRN PRN Reason: SHORTNESS OF BREATH Ascorbic Acid (Vitamin C -) 500 mg PO BID [facility] Last Admin: 05/02/19 21:11 Dose: Not Given Aspirin (Ecotrin -) 81 mg PO DAILY [facility] Last Admin: 05/02/19 11:30 Dose: 81 mg Atorvastatin Calcium (Lipitor -) 80 mg PO HS [facility] Last Admin: 05/02/19 21:12 Dose: 80 mg Docusate Sodium (Colace -) 100 mg PO DAILY [facility] Last Admin: 05/02/19 11:29 Dose: 100 mg Emollient Ointment (Aquaphor -) 1 applic TP BID [facility] Ferrous Sulfate (Feosol -) 325 mg PO BID [facility] Last Admin: 05/02/19 21:11 Dose: 325 mg Furosemide (Lasix -) 40 mg PO DAILY [facility] Last Admin: 05/02/19 11:29 Dose: 40 mg Iron Sucrose 300 mg/ Sodium (Chloride) 250 mls @ 125 mls/hr IVPB ONCE ONE Stop: 05/03/19 10:14 Insulin Aspart (Novolog Mix 70/30 Vial) 45 units SQ BIDAC [facility] Insulin Aspart (Novolog Vial Sliding Scale -) 1 vial SQ ACHS [facility]; Protocol Lactic Acid (Lac-Hydrin 12) 1 applic TP BID PRN PRN Reason: DRY SKIN Metoprolol Succinate (Toprol Xl -) 50 mg PO DAILY [facility] Last Admin: 05/02/19 11:30 Dose: 50 mg Polyethylene Glycol (Miralax (For Daily Use) -) 17 gm PO DAILY [facility] Last Admin: 05/02/19 11:30 Dose: Not Given Senna (Senna -) 1 tab PO HS [facility] Last Admin: 05/02/19 21:11 Dose: 1 tab Triamcinolone Acetonide (Aristocort 0.1% Cream -) 1 applic TP TID [facility] Constitutional: Yes: No Distress, Obese Eyes: Yes: Conjunctiva Clear, EOM Intact HENT: Yes: Atraumatic, Normocephalic Neck: Yes: Supple, Trachea Midline Cardiovascular: Yes: Regular Rate and Rhythm Respiratory: Yes: Diminished, Rales. No: Accessory Muscle Use, SOB, SOB on Exertion, Stridor, Tachypnea, Wheezes ...Inspection: Yes: WNL ...Clubbing: No Gastrointestinal: Yes: Normal Bowel Sounds, Soft, Abdomen, Obese Renal/: Yes: WNL Musculoskeletal: Yes: WNL Extremities: Yes: WNL Edema: Yes Peripheral Pulses WNL: Yes Integumentary: Yes: WNL Neurological: Yes: WNL, Alert, Oriented ...Motor Strength: WNL Psychiatric: Yes: WNL, Alert, Oriented Labs: Laboratory Results - last 24 hr 05/02/19 05/02/19 05/02/19 11:26 11:43 11:43 WBC 7.4 RBC 2.95 L Hgb 8.7 L Hct 26.5 L MCV 89.8 MCH 29.4 MCHC 32.7 RDW 13.7 Plt Count 230 MPV 11.1 Sodium 139 Potassium 4.6 Chloride 105 Carbon Dioxide 24 Anion Gap 9 BUN 37.4 H Creatinine 1.3 Est GFR (CKD-EPI)AfAm 48.47 Est GFR (CKD-EPI)NonAf 41.82 POC Glucometer 220 Random Glucose 225 H Calcium 8.9 Iron TIBC Iron Saturation Unsaturated IBC Ferritin Total Bilirubin 0.4 AST 9 L ALT 15 Alkaline Phosphatase 75 Total Protein 7.0 Albumin 3.1 L 05/02/19 05/02/19 05/03/19 16:42 21:10 06:33 WBC RBC Hgb Hct MCV MCH MCHC RDW Plt Count MPV Sodium Potassium Chloride Carbon Dioxide Anion Gap BUN Creatinine Est GFR (CKD-EPI)AfAm Est GFR (CKD-EPI)NonAf POC Glucometer 240 296 302 Random Glucose Calcium Iron TIBC Iron Saturation Unsaturated IBC Ferritin Total Bilirubin AST ALT Alkaline Phosphatase Total Protein Albumin 05/03/19 05/03/19 06:40 06:40 WBC 7.0 RBC 2.85 L Hgb 8.5 L Hct 25.4 L MCV 89.2 MCH 30.0 MCHC 33.6 RDW 13.6 Plt Count 212 MPV 10.7 Sodium 135 L Potassium 4.9 Chloride 102 Carbon Dioxide 25 Anion Gap 7 L BUN 38.3 H Creatinine 1.4 H Est GFR (CKD-EPI)AfAm 44.32 Est GFR (CKD-EPI)NonAf 38.24 POC Glucometer Random Glucose 323 H Calcium 9.0 Iron 40 L TIBC 195 L Iron Saturation 20 Unsaturated IBC 155 L Ferritin 352.1 Total Bilirubin 0.4 AST 7 L ALT 13 Alkaline Phosphatase 76 Total Protein 6.9 Albumin 2.9 L Problem List - Problems (1) Morbid obesity Code(s): E66.01 - MORBID (SEVERE) OBESITY DUE TO EXCESS CALORIES (2) Shortness of breath Code(s): R06.02 - SHORTNESS OF BREATH (3) Symptomatic anemia Code(s): D64.9 - ANEMIA, UNSPECIFIED (4) Acute exacerbation of CHF (congestive heart failure) Code(s): I50.9 - HEART FAILURE, UNSPECIFIED Qualifiers: Heart failure type: unspecified Qualified Code(s): I50.9 - Heart failure, unspecified (5) Anemia Code(s): D64.9 - ANEMIA, UNSPECIFIED Qualifiers: Anemia type: unspecified type Qualified Code(s): D64.9 - Anemia, unspecified (6) Asthma Code(s): J45.909 - UNSPECIFIED ASTHMA, UNCOMPLICATED (7) CAD (coronary artery disease) Code(s): I25.10 - ATHSCL HEART DISEASE OF [place] CORONARY ARTERY W/O ANG PCTRS (8) CKD (chronic kidney disease) Code(s): N18.9 - CHRONIC KIDNEY DISEASE, UNSPECIFIED (9) DM2 (diabetes mellitus, type 2) Code(s): E11.9 - TYPE 2 DIABETES MELLITUS WITHOUT COMPLICATIONS (10) Dyspnea on exertion Code(s): R06.09 - OTHER FORMS OF DYSPNEA (11) HLD (hyperlipidemia) Code(s): E78.5 - HYPERLIPIDEMIA, UNSPECIFIED (12) Hypertension Code(s): I10 - ESSENTIAL (PRIMARY) HYPERTENSION (13) Penicillin allergy Code(s): Z88.0 - ALLERGY STATUS TO PENICILLIN (14) Sleep apnea Code(s): G47.30 - SLEEP APNEA, UNSPECIFIED Assessment/Plan The patient previously refused home PAP therapy. Was given a device by her PMD and returned it as she says should could not tolerate the mask. Risks and benefits were explained. Supplemental O2 as needed Lasix. She is comfortable but if may need to change to IVP Daily weights Follow I & O No smoking counseled Normal transfusion thresholds BD TX PRN Can order PAP device while admitted but the patient still refuses. Risks and benefits were explained in detail. Dr Amaro Problem List - Problems (1) Morbid obesity Code(s): E66.01 - MORBID (SEVERE) OBESITY DUE TO EXCESS CALORIES (2) Shortness of breath Code(s): R06.02 - SHORTNESS OF BREATH (3) Symptomatic anemia Code(s): D64.9 - ANEMIA, UNSPECIFIED (4) Acute exacerbation of CHF (congestive heart failure) Code(s): I50.9 - HEART FAILURE, UNSPECIFIED Qualifiers: Heart failure type: unspecified Qualified Code(s): I50.9 - Heart failure, unspecified (5) Anemia Code(s): D64.9 - ANEMIA, UNSPECIFIED Qualifiers: Anemia type: unspecified type Qualified Code(s): D64.9 - Anemia, unspecified (6) Asthma Code(s): J45.909 - UNSPECIFIED ASTHMA, UNCOMPLICATED (7) CAD (coronary artery disease) Code(s): I25.10 - ATHSCL HEART DISEASE OF [place] CORONARY ARTERY W/O ANG PCTRS (8) CKD (chronic kidney disease) Code(s): N18.9 - CHRONIC KIDNEY DISEASE, UNSPECIFIED (9) DM2 (diabetes mellitus, type 2) Code(s): E11.9 - TYPE 2 DIABETES MELLITUS WITHOUT COMPLICATIONS (10) Dyspnea on exertion Code(s): R06.09 - OTHER FORMS OF DYSPNEA (11) HLD (hyperlipidemia) Code(s): E78.5 - HYPERLIPIDEMIA, UNSPECIFIED (12) Hypertension Code(s): I10 - ESSENTIAL (PRIMARY) HYPERTENSION (13) Penicillin allergy Code(s): Z88.0 - ALLERGY STATUS TO PENICILLIN (14) Sleep apnea Code(s): G47.30 - SLEEP APNEA, UNSPECIFIED
[2019-05-03] MEDS: MINERAL OIL/PET HY-PHL TOPICAL OINTMENT 454 GM JAR TP SCH ×2 (09:55→21:51)
[2019-05-03] MEDS: POLYETHYLENE GLYCOL 3350 119 GM BTL PO SCH (09:55)
[2019-05-03] MEDS: FUROSEMIDE 40 MG TABLET (FP) PO SCH (09:56)
[2019-05-03] MEDS: ASPIRIN COATED 81 MG TABLET.EC PO SCH (09:56)
[2019-05-03] MEDS: ASCORBIC ACID 500 MG TABLET (FP) PO SCH ×2 (09:56→21:51)
[2019-05-03] MEDS: DOCUSATE SODIUM 100 MG CAPSULE (FP) PO SCH (09:56)
[2019-05-03] MEDS: FERROUS SO4 325 MG TABLET (FP) PO SCH ×2 (09:56→21:51)
[2019-05-03] MEDS: INSULIN (NOVOLOG MIX 70/30) 100 UNITS/ML MDV SQ SCH ×2 (09:57→16:57)
[2019-05-03] MEDS: TRIAMCINOLONE ACET 0.1% CREAM 15 GM TUBE TP SCH ×2 (13:58→21:51)
[2019-05-03 16:43] VITALS: BMI 43.1
[2019-05-03 19:16] LABS: EPI CELLS 0.5 /HPF (0-5/HPF); HYALINE CASTS 1 /lpf (0-8); URINE APPEARANCE CLEAR; URINE BACTERIA 9.8 /hpf (NEGATIVE); URINE BILIRUBIN NEGATIVE (NEGATIVE); URINE COLOR YELLOW; URINE GLUCOSE (UA) TRACE (NEGATIVE); URINE KETONE NEGATIVE (NEGATIVE); URINE LEUK ESTERASE NEGATIVE (NEGATIVE); URINE NITRITE NEGATIVE (NEGATIVE); URINE PROTEIN 2+ (NEGATIVE); URINE RBC 1 /hpf (0-4); URINE UROBILINOGEN 0.2 mg/dL (0.2-1.0); URINE WBC 2 /hpf (0-5)
[2019-05-03] MEDS: SENNOSIDES 8.6MG TABLET (FP) PO SCH (21:51)
[2019-05-03] MEDS: ATORVASTATIN CA 80 MG TABLET (FP) PO SCH (21:51)
[2019-05-04] MEDS: TRIAMCINOLONE ACET 0.1% CREAM 15 GM TUBE TP SCH ×3 (06:28→22:22)
[2019-05-04] MEDS: INSULIN (NOVOLOG MIX 70/30) 100 UNITS/ML MDV SQ SCH ×2 (06:28→17:09)
[2019-05-04] MEDS: FERROUS SO4 325 MG TABLET (FP) PO SCH ×2 (09:42→22:19)
[2019-05-04] MEDS: ASCORBIC ACID 500 MG TABLET (FP) PO SCH ×2 (09:42→22:19)
[2019-05-04] MEDS: FUROSEMIDE 40 MG TABLET (FP) PO SCH (09:42)
[2019-05-04] MEDS: POLYETHYLENE GLYCOL 3350 119 GM BTL PO SCH (09:42)
[2019-05-04] MEDS: ASPIRIN COATED 81 MG TABLET.EC PO SCH (09:42)
[2019-05-04] MEDS: DOCUSATE SODIUM 100 MG CAPSULE (FP) PO SCH (09:42)
[2019-05-04] MEDS: MINERAL OIL/PET HY-PHL TOPICAL OINTMENT 454 GM JAR TP SCH ×2 (09:43→22:21)
--- NOTE | 2019-05-04 11:16 | PN ---
Progress Note (short form) - Note Progress Note: PULMONARY UNABLE TO USE NIPPV VSS/AFEBRILE Constitutional: Yes: No Distress, Obese Eyes: Yes: Conjunctiva Clear, EOM Intact HENT: Yes: Atraumatic, Normocephalic Neck: Yes: Supple, Trachea Midline Cardiovascular: Yes: Regular Rate and Rhythm Respiratory: Yes: Diminished, Rales. No: Accessory Muscle Use, SOB, SOB on Exertion, Stridor, Tachypnea, Wheezes ...Inspection: Yes: WNL ...Clubbing: No Gastrointestinal: Yes: Normal Bowel Sounds, Soft, Abdomen, Obese Renal/: Yes: WNL Musculoskeletal: Yes: WNL Extremities: Yes: WNL Edema: Yes Peripheral Pulses WNL: Yes Integumentary: Yes: WNL Neurological: Yes: WNL, Alert, Oriented ...Motor Strength: WNL Psychiatric: Yes: WNL, Alert, Oriented Labs/Radiographs :REVIEWED The patient previously refused home PAP therapy. Was given a device by her PMD and returned it as she says should could not tolerate the mask. Risks and benefits were explained. Supplemental O2 as needed Lasix Daily weights Follow I & O No smoking counseled Normal transfusion thresholds BD TX PRN Dr Christoph Murray
--- NOTE | 2019-05-04 16:23 | PN ---
Progress Note, Physician Chief Complaint: SOB Anemia Morbid obesity History of Present Illness: NAD SOB on exertion - Current Medication List Current Medications: Active Medications Albuterol/Ipratropium (Duoneb -) 1 amp NEB Q4H PRN PRN Reason: SHORTNESS OF BREATH Ascorbic Acid (Vitamin C -) 500 mg PO BID [facility] Last Admin: 05/04/19 09:42 Dose: 500 mg Aspirin (Ecotrin -) 81 mg PO DAILY [facility] Last Admin: 05/04/19 09:42 Dose: 81 mg Atorvastatin Calcium (Lipitor -) 80 mg PO HS [facility] Last Admin: 05/03/19 21:51 Dose: 80 mg Docusate Sodium (Colace -) 100 mg PO DAILY [facility] Last Admin: 05/04/19 09:42 Dose: 100 mg Emollient Ointment (Aquaphor -) 1 applic TP BID [facility] Last Admin: 05/04/19 09:43 Dose: 1 applic Ferrous Sulfate (Feosol -) 325 mg PO BID [facility] Last Admin: 05/04/19 09:42 Dose: 325 mg Furosemide (Lasix -) 40 mg PO DAILY [facility] Last Admin: 05/04/19 09:42 Dose: 40 mg Insulin Aspart (Novolog Mix 70/30 Vial) 30 units SQ BIDAC [facility] Last Admin: 05/04/19 06:28 Dose: 30 units Lactic Acid (Lac-Hydrin 12) 1 applic TP BID PRN PRN Reason: DRY SKIN Last Admin: 05/03/19 09:55 Dose: 1 applic Metoprolol Succinate (Toprol Xl -) 50 mg PO DAILY [facility] Last Admin: 05/04/19 09:42 Dose: 50 mg Polyethylene Glycol (Miralax (For Daily Use) -) 17 gm PO DAILY [facility] Last Admin: 05/04/19 09:42 Dose: Not Given Senna (Senna -) 1 tab PO HS [facility] Last Admin: 05/03/19 21:51 Dose: Not Given Triamcinolone Acetonide (Aristocort 0.1% Cream -) 1 applic TP TID [facility] Last Admin: 05/04/19 14:42 Dose: 1 applic - Objective Vital Signs: Vital Signs Temperature 98.6 F 05/04/19 14:07 Pulse Rate 73 05/04/19 14:07 Respiratory Rate 18 05/04/19 14:07 Blood Pressure 145/61 05/04/19 14:07 O2 Sat by Pulse Oximetry (%) 97 05/04/19 08:48 Constitutional: Yes: Well Nourished, No Distress, Calm Cardiovascular: Yes: Regular Rate and Rhythm Respiratory: Yes: Diminished (BLL) Gastrointestinal: Yes: Normal Bowel Sounds, Soft, Abdomen, Obese Genitourinary: Yes: WNL Musculoskeletal: Yes: Muscle Weakness Extremities: Yes: WNL Edema: No Peripheral Pulses WNL: Yes Neurological: Yes: Alert, Oriented Psychiatric: Yes: Alert, Oriented Labs: CBC, BMP 05/03/19 06:40 05/03/19 06:40 INR, PTT INR 1.09 (0.83-1.09) 05/01/19 12:30 Assessment/Plan (1) Morbid obesity Assessment/Plan: -Dietary consult Code(s): E66.01 - MORBID (SEVERE) OBESITY DUE TO EXCESS CALORIES (2) HORACE (acute kidney injury) Assessment/Plan: -monitor renal function daily Code(s): N17.9 - ACUTE KIDNEY FAILURE, UNSPECIFIED (3) Anemia Assessment/Plan: -GI and Hematology consult -monitor Hg daily -transfuse for Hg <7.0 to avoid fluid overload -Stool OB -Anemia profile -Ferrous Sulfate BID -Capsule Endoscopy at [facility] was normal as per pt. Code(s): D64.9 - ANEMIA, UNSPECIFIED Qualifiers: Anemia type: unspecified type Qualified Code(s): D64.9 - Anemia, unspecified (4) CAD (coronary artery disease) Assessment/Plan: -Aspirin Code(s): I25.10 - ATHSCL HEART DISEASE OF [place] CORONARY ARTERY W/O ANG PCTRS (5) COPD (chronic obstructive pulmonary disease) Assessment/Plan: -Pulmonary on board -CXR shows weak inspiratory effort, congestive changes -Bipap prn -O2 via NC prn for SOB -keep SpO2 >90% -bronchodilators Code(s): J44.9 - CHRONIC OBSTRUCTIVE PULMONARY DISEASE, UNSPECIFIED (6) DM2 (diabetes mellitus, type 2) Assessment/Plan: -BGM ACHS -ISS -HgA1c 8.8 -diabetic low sodium diet -Cortisol AM test pending- can be followed up outpatient Code(s): E11.9 - TYPE 2 DIABETES MELLITUS WITHOUT COMPLICATIONS (7) HLD (hyperlipidemia) Assessment/Plan: -Atorvastatin Code(s): E78.5 - HYPERLIPIDEMIA, UNSPECIFIED (8) Hypertension Code(s): I10 - ESSENTIAL (PRIMARY) HYPERTENSION (9) Acute exacerbation of CHF (congestive heart failure) Assessment/Plan: -Pulmonary on board -CXR shows congestive changes -strict I&Os -fluid restriction -Furosemide 40 mg po daily Code(s): I50.9 - HEART FAILURE, UNSPECIFIED Qualifiers: Heart failure type: unspecified Qualified Code(s): I50.9 - Heart failure, unspecified Assessment/Plan see problem list dvt ppx
--- NOTE | 2019-05-04 17:43 | DS ---
Physical Examination Vital Signs: Vital Signs Temperature 98.6 F 05/04/19 14:07 Pulse Rate 73 05/04/19 14:07 Respiratory Rate 18 05/04/19 14:07 Blood Pressure 145/61 05/04/19 14:07 O2 Sat by Pulse Oximetry (%) 97 05/04/19 08:48 Findings/Remarks: 68 F h/o morbid obesity, TERENCE, ?OHS, HFpEF, IDDM, CAD s/p stents, HTN, HLD, chronic anemia and asthma presents after an episode of nocturnal dyspnea and associated R neck pain which woke her up in the middle of the night. Patient describes event as waking up "gasping for air", and when arising felt R sided neck pain and shoulder pain. Patient endorses recently being diagnosed w/ severe TERENCE, was told she needed CPAP with supplement O2 therapy, in which she has been non-compliant due to "choking sensation" when using it. Patient has history of chronic anemia, ?needed BM biopsy in the past, lost to follow up, s/ p transfusions in the past, endorses chronic SOB which is grossly unchanged from prior, (endorses baseline poor exercise tolerance 2/2 multiple comorbidities and obesity). In the past patient's transfusion threshold was 8GM/ dL. ET markedly limited d/t morbid obesity and chronic b/l knee pain. Denies CP /LOC/syncope/fall/abdominal pain/urinary or bowel changes/ANNE/vision changes. Constitutional: Yes: Well Nourished, No Distress, Calm, Obese Cardiovascular: Yes: Regular Rate and Rhythm Respiratory: Yes: Regular Gastrointestinal: Yes: Normal Bowel Sounds, Soft, Abdomen, Obese Renal/: Yes: WNL Edema: No Peripheral Pulses WNL: Yes Neurological: Yes: Alert, Oriented Psychiatric: Yes: Alert, Oriented Labs: CBC, BMP 05/03/19 06:40 05/03/19 06:40 Discharge Summary Problems reviewed: Yes Reason For Visit: SOB SECONDARY ANEMIA Current Active Problems Morbid obesity (Acute) Shortness of breath (Acute) Symptomatic anemia (Acute) Laboratory Last Values WBC 7.0 K/mm3 (4.0-10.0) 05/03/19 06:40 RBC 2.85 M/mm3 (3.60-5.2) L 05/03/19 06:40 Hgb 8.5 GM/dL (10.7-15.3) L 05/03/19 06:40 Hct 25.4 % (32.4-45.2) L 05/03/19 06:40 MCV 89.2 fl (80-96) 05/03/19 06:40 MCH 30.0 pg (25.7-33.7) 05/03/19 06:40 MCHC 33.6 g/dl (32.0-36.0) 05/03/19 06:40 RDW 13.6 % (11.6-15.6) 05/03/19 06:40 Plt Count 212 K/MM3 (134-434) 05/03/19 06:40 MPV 10.7 fl (7.5-11.1) 05/03/19 06:40 Absolute Neuts (auto) 6.4 K/mm3 (1.5-8.0) 05/01/19 12:30 Neutrophils % 78.4 % (42.8-82.8) 05/01/19 12:30 Lymphocytes % 12.7 % (8-40) 05/01/19 12:30 Monocytes % 6.4 % (3.8-10.2) 05/01/19 12:30 Eosinophils % 1.7 % (0-4.5) 05/01/19 12:30 Basophils % 0.8 % (0-2.0) 05/01/19 12:30 Nucleated RBC % 0 % (0-0) 05/01/19 12:30 PT with INR 12.90 SEC (9.7-13.0) 05/01/19 12:30 INR 1.09 (0.83-1.09) 05/01/19 12:30 Sodium 135 mmol/L (136-145) L 05/03/19 06:40 Potassium 4.9 mmol/L (3.5-5.1) 05/03/19 06:40 Chloride 102 mmol/L (98-107) 05/03/19 06:40 Carbon Dioxide 25 mmol/L (21-32) 05/03/19 06:40 Anion Gap 7 MMOL/L (8-16) L 05/03/19 06:40 BUN 38.3 mg/dL (7-18) H 05/03/19 06:40 Creatinine 1.4 mg/dL (0.55-1.3) H 05/03/19 06:40 Est GFR (CKD-EPI)AfAm 44.32 05/03/19 06:40 Est GFR (CKD-EPI)NonAf 38.24 05/03/19 06:40 POC Glucometer 301 UNITS (80-120) 05/04/19 17:07 Random Glucose 323 mg/dL (74-106) H 05/03/19 06:40 Hemoglobin A1c % 8.8 % (4.2-6.3) H 05/03/19 06:40 Calcium 9.0 mg/dL (8.5-10.1) 05/03/19 06:40 Iron 40 ug/dL (50-175) L 05/03/19 06:40 TIBC 195 ug/dL (250-450) L 05/03/19 06:40 Iron Saturation 20 % (17.5-39) 05/03/19 06:40 Unsaturated IBC 155 ug/dL (200-275) L 05/03/19 06:40 Ferritin 352.1 ng/ml (8-388) 05/03/19 06:40 Total Bilirubin 0.4 mg/dL (0.2-1) 05/03/19 06:40 AST 7 U/L (15-37) L 05/03/19 06:40 ALT 13 U/L (13-61) 05/03/19 06:40 Alkaline Phosphatase 76 U/L (45-117) 05/03/19 06:40 Troponin I 0.03 ng/ml (0.00-0.05) 05/01/19 12:30 B-Natriuretic Peptide 2340.9 pg/ml (5-125) H 05/01/19 12:30 Total Protein 6.9 g/dl (6.4-8.2) 05/03/19 06:40 Albumin 2.9 g/dl (3.4-5.0) L 05/03/19 06:40 Urine Color Yellow 05/03/19 18:31 Urine Appearance Clear 05/03/19 18:31 Urine pH 6.0 (5.0-8.0) 05/03/19 18:31 Ur Specific [place] 1.009 (1.010-1.035) L 05/03/19 18:31 Urine Protein 2+ (NEGATIVE) H 05/03/19 18:31 Urine Glucose (UA) Trace (NEGATIVE) 05/03/19 18:31 Urine Ketones Negative (NEGATIVE) 05/03/19 18:31 Urine Blood Negative (NEGATIVE) 05/03/19 18:31 Urine Nitrite Negative (NEGATIVE) 05/03/19 18:31 Urine Bilirubin Negative (NEGATIVE) 05/03/19 18:31 Urine Urobilinogen 0.2 mg/dL (0.2-1.0) 05/03/19 18:31 Ur Leukocyte Esterase Negative (NEGATIVE) 05/03/19 18:31 Urine WBC (Auto) 2 /hpf (0-5) 05/03/19 18:31 Urine RBC (Auto) 1 /hpf (0-4) 05/03/19 18:31 Urine Casts (Auto) 1 /lpf (0-8) 05/03/19 18:31 U Epithel Cells (Auto) 0.5 /HPF (0-5/HPF) 05/03/19 18:31 Urine Bacteria (Auto) 9.8 /hpf (NEGATIVE) 05/03/19 18:31 Blood Type O POSITIVE 05/01/19 12:30 Antibody Screen Negative 05/01/19 12:30 Crossmatch See Detail 05/01/19 12:30 Vital Signs Temp 98.6 F 05/04/19 14:07 Pulse 73 05/04/19 14:07 Resp 18 05/04/19 14:07 BP 145/61 05/04/19 14:07 Pulse Ox 97 05/04/19 08:48 Intake & Output 05/03/19 05/04/19 05/04/19 23:59 11:59 23:59 Intake Total 890 350 Balance 890 350 Weight 100.244 kg 109.497 kg Intake: IVPB 250 Oral 640 350 Other: Voiding Method Toilet Toilet # Unmeasured Voids Void 1 1 2 Bowel Movement No Height 5 ft Body Mass Index (BMI) 43.1 Weight Measurement Method Standing Scale Condition: Stable - Instructions Referrals: Rigo Payne MD [Family Provider] - Russell Philip MD [Primary Care Provider] - Disposition: HOME - Home Medications Comprehensive Discharge Medication List: Ambulatory Orders Atorvastatin Ca [Lipitor] 80 mg PO HS 08/09/18 Linaclotide [Linzess] 290 mcg PO DAILY 08/09/18 Furosemide [Lasix -] 40 mg PO DAILY #30 tablet MDD 1 08/10/18 Aspirin Coated [Ecotrin -] 81 mg PO DAILY tablet.ec 08/12/18 Metoprolol Succinate 1 tab PO DAILY 10/08/18 Albuterol 2.5/Ipratropium 0.5 [Duoneb -] 1 amp NEB Q6H PRN #120 amp 11/13/18 Albuterol 2.5/Ipratropium 0.5 [Duoneb -] 1 amp NEB Q4H PRN amp 05/04/19 Ammonium Lactate Lotion [Lac-Hydrin 12] 1 applic TP BID PRN #1 bottle 05/04/19 Ascorbic Acid [Vitamin C -] 500 mg PO BID #60 tablet 05/04/19 Aspirin Coated [Ecotrin -] 81 mg PO DAILY tablet.ec 05/04/19 Atorvastatin Ca [Lipitor] 80 mg PO HS tablet 05/04/19 Docusate Sodium [Colace -] 100 mg PO DAILY #30 capsule 05/04/19 Ferrous Sulfate 325 mg PO BID #60 tab 05/04/19 Ferrous Sulfate [Feosol] 325 mg PO BID #60 tab 05/04/19 Furosemide [Lasix -] 40 mg PO DAILY tablet 05/04/19 Insulin (Novolog 70/30) [Novolog Mix 70/30 Vial -] 30 units SQ BIDAC units 11/13 Insulin (Novolog 70/30) [Novolog Mix 70/30 Vial -] 45 units SQ BIDAC units 11/13 Insulin Sliding Scale [Novolog Vial Sliding Scale -] 1 vial SQ ACHS units 05/04 Metoprolol Succinate [Toprol XL -] 50 mg PO DAILY tab.sr.24h 05/04/19 Mineral Oil/Pet Hy-Phl [Aquaphor -] 1 applic TP BID #1 jar 05/04/19 Polyethylene Glycol 3350 [Miralax 119 gm Btl -] 17 gm PO DAILY #1 bottle Sennosides [Senna -] 1 tab PO HS #30 tablet 05/04/19 Triamcinolone 0.1% Cream [Aristocort 0.1% Cream -] 1 applic TP BID #1 tube 05/04 Prescription Drug Monitoring Program (I-STOP) results: I-STOP reviewed and no issues identified
--- NOTE | 2019-05-04 20:00 | PN ---
Progress Note, Physician Chief Complaint: NO COMPLAINT - Current Medication List Current Medications: Active Medications Albuterol/Ipratropium (Duoneb -) 1 amp NEB Q4H PRN PRN Reason: SHORTNESS OF BREATH Ascorbic Acid (Vitamin C -) 500 mg PO BID [facility] Last Admin: 05/04/19 09:42 Dose: 500 mg Aspirin (Ecotrin -) 81 mg PO DAILY [facility] Last Admin: 05/04/19 09:42 Dose: 81 mg Atorvastatin Calcium (Lipitor -) 80 mg PO HS [facility] Last Admin: 05/03/19 21:51 Dose: 80 mg Docusate Sodium (Colace -) 100 mg PO DAILY [facility] Last Admin: 05/04/19 09:42 Dose: 100 mg Emollient Ointment (Aquaphor -) 1 applic TP BID [facility] Last Admin: 05/04/19 09:43 Dose: 1 applic Ferrous Sulfate (Feosol -) 325 mg PO BID [facility] Last Admin: 05/04/19 09:42 Dose: 325 mg Furosemide (Lasix -) 40 mg PO DAILY [facility] Last Admin: 05/04/19 09:42 Dose: 40 mg Insulin Aspart (Novolog Mix 70/30 Vial) 30 units SQ BIDAC [facility] Last Admin: 05/04/19 17:09 Dose: 30 units Lactic Acid (Lac-Hydrin 12) 1 applic TP BID PRN PRN Reason: DRY SKIN Last Admin: 05/03/19 09:55 Dose: 1 applic Metoprolol Succinate (Toprol Xl -) 50 mg PO DAILY [facility] Last Admin: 05/04/19 09:42 Dose: 50 mg Polyethylene Glycol (Miralax (For Daily Use) -) 17 gm PO DAILY [facility] Last Admin: 05/04/19 09:42 Dose: Not Given Senna (Senna -) 1 tab PO HS [facility] Last Admin: 05/03/19 21:51 Dose: Not Given Triamcinolone Acetonide (Aristocort 0.1% Cream -) 1 applic TP TID [facility] Last Admin: 05/04/19 14:42 Dose: 1 applic - Objective Vital Signs: Vital Signs Temperature 98.7 F 05/04/19 18:00 Pulse Rate 72 05/04/19 18:00 Respiratory Rate 18 05/04/19 18:00 Blood Pressure 138/70 05/04/19 18:00 O2 Sat by Pulse Oximetry (%) 97 05/04/19 08:48 Constitutional: Yes: Calm Eyes: Yes: EOM Intact HENT: Yes: Normocephalic Neck: Yes: Trachea Midline Cardiovascular: Yes: Regular Rate and Rhythm Respiratory: Yes: CTA Bilaterally Gastrointestinal: Yes: Normal Bowel Sounds ...Rectal Exam: Yes: Deferred Musculoskeletal: Yes: WNL Extremities: Yes: WNL Edema: No Neurological: Yes: Oriented, Babinski positive ...Motor Strength: WNL Psychiatric: Yes: WNL Labs: CBC, BMP 05/03/19 06:40 05/03/19 06:40 INR, PTT INR 1.09 (0.83-1.09) 05/01/19 12:30 Problem List - Problems (1) Morbid obesity Code(s): E66.01 - MORBID (SEVERE) OBESITY DUE TO EXCESS CALORIES (2) Symptomatic anemia Code(s): D64.9 - ANEMIA, UNSPECIFIED (3) HORACE (acute kidney injury) Code(s): N17.9 - ACUTE KIDNEY FAILURE, UNSPECIFIED (4) Acute exacerbation of CHF (congestive heart failure) Code(s): I50.9 - HEART FAILURE, UNSPECIFIED Qualifiers: Heart failure type: unspecified Qualified Code(s): I50.9 - Heart failure, unspecified Assessment/Plan Current Active Problems DMT2,UNCONTROLLED HTN Morbid obesity (Acute) Shortness of breath (Acute) Symptomatic anemia (Acute) REFUSED BMBX Laboratory Results - last 24 hr 05/04/19 05/04/19 06:26 17:07 POC Glucometer 161 301 PLAN: BGM QID NOVOLOG SCALE NOVOLOG 70/30 BID DOSES FOLLOW UP OUTPATIENT HEMATOLOGY
[2019-05-04] MEDS: SENNOSIDES 8.6MG TABLET (FP) PO SCH (22:19)
[2019-05-04] MEDS: ATORVASTATIN CA 80 MG TABLET (FP) PO SCH (22:19)
[2019-05-05] MEDS: TRIAMCINOLONE ACET 0.1% CREAM 15 GM TUBE TP SCH (06:39)
[2019-05-05] MEDS: INSULIN (NOVOLOG MIX 70/30) 100 UNITS/ML MDV SQ SCH (06:40)
[2019-05-05 07:45] LABS: BASO % 0.6 % (0-2.0); EOS % 3.9 % (0-4.5); HEMATOCRIT 28.2 % (32.4-45.2); HEMOGLOBIN 9.4 GM/dL (10.7-15.3); LYMPH % 19.2 % (8-40); MCH 29.9 pg (25.7-33.7); MCHC 33.2 g/dl (32.0-36.0); MEAN PLT VOLUME 10.7 fl (7.5-11.1); MONO % 7.1 % (3.8-10.2); NEUT % 69.2 % (42.8-82.8); PLATELET COUNT 227 K/MM3 (134-434); RBC 3.14 M/mm3 (3.60-5.2); RDW 13.6 % (11.6-15.6)
[2019-05-05 08:08] LABS: ALBUMIN 2.9 g/dl (3.4-5.0); BILIRUBIN,TOTAL 0.9 mg/dL (0.2-1); BLOOD UREA NITROGEN 38.8 mg/dL (7-18); CALCIUM 9.1 mg/dL (8.5-10.1); CREATININE 1.5 mg/dL (0.55-1.3); POTASSIUM 4.3 mmol/L (3.5-5.1); TOT PROT 6.8 g/dl (6.4-8.2)
[2019-05-05] MEDS ORDERED: PT OWN MED DRAWER 7, Y5N ONE (10:04)
[2019-05-05] MEDS: FUROSEMIDE 40 MG TABLET (FP) PO SCH (10:16)
[2019-05-05] MEDS: FERROUS SO4 325 MG TABLET (FP) PO SCH (10:19)
[2019-05-05] MEDS: ASCORBIC ACID 500 MG TABLET (FP) PO SCH (10:19)
[2019-05-05] MEDS: ASPIRIN COATED 81 MG TABLET.EC PO SCH (10:19)
[2019-05-05] MEDS: DOCUSATE SODIUM 100 MG CAPSULE (FP) PO SCH (10:19)
[2019-05-05] MEDS: MINERAL OIL/PET HY-PHL TOPICAL OINTMENT 454 GM JAR TP SCH (10:19)
[2019-05-05] MEDS: POLYETHYLENE GLYCOL 3350 119 GM BTL PO SCH (10:19)
[2019-05-05 11:22] VITALS: BP 132/70; PULSE 78; TEMP 98.6
== END 2019-05-05 11:21 | disposition home or self-care (01) | DRG 155 ==
LOC: JER 11:33 → JERBED 16:12 → J4S 05-02 10:47
PROVIDERS: ADMIT Internal Medicine Endocrinology, Diabetes & Metabolism; ATTEND Family Medicine
DX: G47.33 Obstructive sleep apnea (adult) (pediatric) (principal); I50.32 Chronic diastolic (congestive) heart failure; N17.9 Acute kidney failure, unspecified; I13.0 Hypertensive heart and chronic kidney disease with heart failure and stage 1 through stage 4 chronic kidney disease, or unspecified chronic kidney disease; Z68.42 Body mass index [BMI] 45.0-49.9, adult; D50.9 Iron deficiency anemia, unspecified; E66.01 Morbid (severe) obesity due to excess calories; E11.22 Type 2 diabetes mellitus with diabetic chronic kidney disease; N18.9 Chronic kidney disease, unspecified; E11.65 Type 2 diabetes mellitus with hyperglycemia; J44.9 Chronic obstructive pulmonary disease, unspecified; E11.40 Type 2 diabetes mellitus with diabetic neuropathy, unspecified; I25.10 Atherosclerotic heart disease of native coronary artery without angina pectoris; Z91.14 Patient's other noncompliance with medication regimen; E78.5 Hyperlipidemia, unspecified; Z88.0 Allergy status to penicillin; Z79.4 Long term (current) use of insulin; M25.562 Pain in left knee; M25.561 Pain in right knee; D63.8 Anemia in other chronic diseases classified elsewhere
CPT/HCPCS: 36415; 71045-TC-FY; 80053; 81003; 82533; 82728; 82962; 83036; 83540; 83550; 83880; 84484; 85025; 85027; 85610; 86850; 86900; 86901; 86922; 87086; 93005; 93010; 94660; 99285-25; J1756; J8540

== ENCOUNTER 2020-04-15 11:00 | Inpatient (IN) | payer BC, OTHER ==
[2020-04-15 11:22] VITALS: BMI 43.9
[2020-04-15 12:07] LABS: INR 1.19 (0.82-1.09); PROTHROMBIN TIME (PATIENT) 13.2 SEC (10.2-13.0)
[2020-04-15 12:11] LABS: BASO % 0.9 % (0-2.0); EOS % 1.5 % (0-4.5); HEMATOCRIT 22.5 % (32.4-45.2); LYMPH % 12.9 % (8-40); MCH 26.4 pg (25.7-33.7); MCHC 31.1 g/dl (32.0-36.0); MEAN PLT VOLUME 11.2 fl (7.5-11.1); MONO % 4.7 % (3.8-10.2); PLATELET COUNT 212 K/MM3 (134-434); RBC 2.65 M/mm3 (3.60-5.2); WHITE BLOOD COUNT 7.2 K/mm3 (4.0-10.8)
[2020-04-15 12:12] LABS: ADD RBC MORPHOLOGY YES
[2020-04-15 12:18] LABS: ALBUMIN 3.4 g/dl (3.4-5.0); BILIRUBIN,TOTAL 0.9 mg/dl (0.2-1); CALCIUM 8.6 mg/dl (8.5-10); CREATININE 1.6 mg/dl (0.55-1.3); POTASSIUM 5.4 mmol/L (3.5-5.1); TOT PROT 6.8 g/dl (6.4-8.2)
[2020-04-15 13:33] LABS: ANISOCYTOSIS 1+; PLATELET ESTIMATE ADEQUATE
[2020-04-15] MEDS ORDERED: ALBUTEROL SO4 HFA INHALER IH ONE ×2 (13:36→13:49)
[2020-04-15] MEDS ORDERED: FUROSEMIDE 40 MG/4 ML INJECTABLE VIAL IVPUSH ONE (13:37)
[2020-04-15] MEDS ORDERED: ASPIRIN 81 MG CHEWABLE TABLETS PO ONE (13:38)
[2020-04-15] MEDS ORDERED: ASPIRIN 81 MG CHEWABLE TABLETS ONE (13:48)
[2020-04-15] MEDS ORDERED: FUROSEMIDE 40 MG/4 ML INJECTABLE VIAL ONE (13:49)
[2020-04-15] MEDS ORDERED: DEXAMETHASONE SOD PHOSPHATE 10 MG/1 ML VIAL IVPUSH ONE (14:09)
[2020-04-15 14:15] LABS: N-TERMINAL BNP 3953.9 pg/ml (5-125)
[2020-04-15] MEDS ORDERED: DEXAMETHASONE SOD PHOSPHATE 10 MG/1 ML VIAL ONE (14:20)
[2020-04-15] MEDS ORDERED: INSULIN SLIDING SCALE (NOVOLOG) 1 VIAL SQ SCH (22:00)
[2020-04-15] MEDS: INSULIN (LEVEMIR) 100 UNITS/ML UNITS SQ SCH (22:54)
[2020-04-15] MEDS: INSULIN SLIDING SCALE (NOVOLOG) 1 VIAL SQ SCH (22:55)
[2020-04-16] MEDS: INSULIN SLIDING SCALE (NOVOLOG) 1 VIAL SQ SCH ×6 (06:14→22:22)
[2020-04-16] MEDS ORDERED: ACETAMINOPHEN 325 MG TABLET (FP) PO PRN (08:59)
[2020-04-16] MEDS ORDERED: FUROSEMIDE 40 MG TABLET (FP) PO SCH (10:00)
[2020-04-16] MEDS: INSULIN (LEVEMIR) 100 UNITS/ML UNITS SQ SCH ×4 (10:35→22:21)
[2020-04-16] MEDS: ASPIRIN 81 MG CHEWABLE TABLETS PO SCH (10:35)
[2020-04-16] MEDS: HEPARIN NA (PORCINE) 5,000 UNITS/ML 1ML VIAL SQ SCH ×2 (10:35→21:13)
[2020-04-16 11:44] LABS: BASO % 0.8 % (0-2.0); EOS % 0.1 % (0-4.5); HEMATOCRIT 26.8 % (32.4-45.2); HEMOGLOBIN 8.5 GM/dL (10.7-15.3); LYMPH % 11.2 % (8-40); MCH 27.1 pg (25.7-33.7); MCHC 31.9 g/dl (32.0-36.0); MEAN CELL VOLUME 84.9 fl (80-96); MEAN PLT VOLUME 10.8 fl (7.5-11.1); MONO % 7.8 % (3.8-10.2); NEUT % 80.1 % (42.8-82.8); PLATELET COUNT 223 K/MM3 (134-434); RBC 3.16 M/mm3 (3.60-5.2); RDW 17.7 % (11.6-15.6); WHITE BLOOD COUNT 8.4 K/mm3 (4.0-10.0)
[2020-04-16 11:58] LABS: POTASSIUM 4.8 mmol/L (3.5-5.1)
[2020-04-16 12:00] LABS: CALCIUM 9.4 mg/dL (8.5-10.1)
[2020-04-16 12:01] LABS: ALBUMIN 3.3 g/dl (3.4-5.0); BLOOD UREA NITROGEN 45.7 mg/dL (7-18); MAGNESIUM 2.3 mg/dL (1.8-2.4)
[2020-04-16 12:04] LABS: CREATININE 1.5 mg/dL (0.55-1.3)
[2020-04-16 12:06] LABS: BILIRUBIN,TOTAL 0.7 mg/dL (0.2-1); TOT PROT 7.1 g/dl (6.4-8.2)
[2020-04-16] MEDS ORDERED: PT OWN MED DRAWER 7, Y5N ONE (13:11)
[2020-04-16] MEDS: FUROSEMIDE 40 MG/4 ML INJECTABLE VIAL IVPUSH SCH (13:30)
[2020-04-16] MEDS: IRON POLYSACCHARIDES 150 MG CAPSULE PO SCH (14:29)
[2020-04-16] MEDS: ATORVASTATIN CA 80 MG TABLET (FP) PO SCH (21:13)
[2020-04-17] MEDS: FUROSEMIDE 40 MG/4 ML INJECTABLE VIAL IVPUSH SCH ×2 (05:35→13:35)
[2020-04-17] MEDS: INSULIN SLIDING SCALE (NOVOLOG) 1 VIAL SQ SCH ×4 (06:50→21:13)
[2020-04-17] MEDS: INSULIN (LEVEMIR) 100 UNITS/ML UNITS SQ SCH ×2 (06:50→21:07)
[2020-04-17 07:52] LABS: BASO % 0.9 % (0-2.0); EOS % 2.3 % (0-4.5); HEMATOCRIT 29.1 % (32.4-45.2); HEMOGLOBIN 9.3 GM/dL (10.7-15.3); LYMPH % 20.3 % (8-40); MCH 27.2 pg (25.7-33.7); MCHC 31.8 g/dl (32.0-36.0); MEAN CELL VOLUME 85.5 fl (80-96); MEAN PLT VOLUME 10.9 fl (7.5-11.1); MONO % 8.7 % (3.8-10.2); NEUT % 67.8 % (42.8-82.8); PLATELET COUNT 246 K/MM3 (134-434); RBC 3.41 M/mm3 (3.60-5.2); RDW 17.8 % (11.6-15.6); WHITE BLOOD COUNT 7.6 K/mm3 (4.0-10.0)
[2020-04-17 08:04] LABS: POTASSIUM 4.9 mmol/L (3.5-5.1)
[2020-04-17 08:07] LABS: CALCIUM 9.2 mg/dL (8.5-10.1)
[2020-04-17 08:08] LABS: ALBUMIN 3.2 g/dl (3.4-5.0); BLOOD UREA NITROGEN 50.2 mg/dL (7-18)
[2020-04-17 08:11] LABS: CREATININE 1.7 mg/dL (0.55-1.3)
[2020-04-17 08:12] LABS: BILIRUBIN,TOTAL 0.5 mg/dL (0.2-1); TOT PROT 7.1 g/dl (6.4-8.2)
[2020-04-17] MEDS ORDERED: PT OWN MED DRAWER 7, Y5N ONE ×2 (09:23→09:24)
[2020-04-17] MEDS: ASPIRIN 81 MG CHEWABLE TABLETS PO SCH (09:29)
[2020-04-17] MEDS: IRON POLYSACCHARIDES 150 MG CAPSULE PO SCH (09:29)
[2020-04-17] MEDS: HEPARIN NA (PORCINE) 5,000 UNITS/ML 1ML VIAL SQ SCH ×2 (09:30→21:06)
[2020-04-17] MEDS: ATORVASTATIN CA 80 MG TABLET (FP) PO SCH (21:08)
[2020-04-18] MEDS: INSULIN SLIDING SCALE (NOVOLOG) 1 VIAL SQ SCH ×4 (06:05→21:19)
[2020-04-18] MEDS: INSULIN (LEVEMIR) 100 UNITS/ML UNITS SQ SCH ×2 (06:05→21:20)
[2020-04-18 07:47] LABS: BASO % 1.4 % (0-2.0); HEMATOCRIT 28.7 % (32.4-45.2); HEMOGLOBIN 9.3 GM/dL (10.7-15.3); MCH 27.5 pg (25.7-33.7); MCHC 32.5 g/dl (32.0-36.0); MEAN CELL VOLUME 84.5 fl (80-96); MEAN PLT VOLUME 10.2 fl (7.5-11.1); MONO % 9.4 % (3.8-10.2); NEUT % 69.2 % (42.8-82.8); PLATELET COUNT 234 K/MM3 (134-434); POTASSIUM 4.5 mmol/L (3.5-5.1); RDW 17.4 % (11.6-15.6); WHITE BLOOD COUNT 7.3 K/mm3 (4.0-10.0)
[2020-04-18 08:03] LABS: ALBUMIN 2.9 g/dl (3.4-5.0); BLOOD UREA NITROGEN 51.8 mg/dL (7-18); CREATININE 1.5 mg/dL (0.55-1.3)
[2020-04-18 08:04] LABS: BILIRUBIN,TOTAL 0.6 mg/dL (0.2-1); TOT PROT 6.5 g/dl (6.4-8.2)
[2020-04-18 08:05] LABS: CALCIUM 9.1 mg/dL (8.5-10.1)
[2020-04-18] MEDS ORDERED: PT OWN MED DRAWER 7, Y5N ONE (09:52)
[2020-04-18] MEDS: FUROSEMIDE 40 MG TABLET (FP) PO SCH (10:09)
[2020-04-18] MEDS: HEPARIN NA (PORCINE) 5,000 UNITS/ML 1ML VIAL SQ SCH ×2 (10:09→21:18)
[2020-04-18] MEDS: ASPIRIN 81 MG CHEWABLE TABLETS PO SCH (10:09)
[2020-04-18] MEDS: IRON POLYSACCHARIDES 150 MG CAPSULE PO SCH (10:09)
[2020-04-18] MEDS: POLYETHYLENE GLYCOL 3350 119 GM BTL PO SCH (15:23)
[2020-04-18] MEDS: ATORVASTATIN CA 80 MG TABLET (FP) PO SCH (21:19)
[2020-04-18] MEDS ORDERED: SENNOSIDES 8.6MG TABLET (FP) PO SCH (22:00)
[2020-04-19] MEDS: INSULIN (LEVEMIR) 100 UNITS/ML UNITS SQ SCH (06:29)
[2020-04-19] MEDS: INSULIN SLIDING SCALE (NOVOLOG) 1 VIAL SQ SCH ×2 (06:29→11:33)
[2020-04-19 09:41] VITALS: BP 124/52; PULSE 70; TEMP 97.9
[2020-04-19] MEDS: FUROSEMIDE 40 MG TABLET (FP) PO SCH (10:18)
[2020-04-19] MEDS: HEPARIN NA (PORCINE) 5,000 UNITS/ML 1ML VIAL SQ SCH (10:18)
[2020-04-19] MEDS: ASPIRIN 81 MG CHEWABLE TABLETS PO SCH (10:18)
[2020-04-19] MEDS: IRON POLYSACCHARIDES 150 MG CAPSULE PO SCH (10:27)
[2020-04-19] MEDS: POLYETHYLENE GLYCOL 3350 119 GM BTL PO SCH (11:30)
== END 2020-04-19 12:57 | disposition home or self-care (01) | DRG 811 ==
LOC: FER 11:00 → J4W 04-16 01:10 → J4S 04-16 07:09
PROVIDERS: ADMIT Family Medicine; ATTEND Family Medicine
PROC: 30233N1 Transfusion of Nonautologous Red Blood Cells into Peripheral Vein, Percutaneous Approach (ICD-10-PCS; principal; 2020-04-15)
DX: D64.9 Anemia, unspecified (principal); I50.33 Acute on chronic diastolic (congestive) heart failure; Z68.42 Body mass index [BMI] 45.0-49.9, adult; N17.9 Acute kidney failure, unspecified; I13.0 Hypertensive heart and chronic kidney disease with heart failure and stage 1 through stage 4 chronic kidney disease, or unspecified chronic kidney disease; I25.10 Atherosclerotic heart disease of native coronary artery without angina pectoris; E78.5 Hyperlipidemia, unspecified; E66.9 Obesity, unspecified; Z79.4 Long term (current) use of insulin; G47.33 Obstructive sleep apnea (adult) (pediatric); J45.909 Unspecified asthma, uncomplicated; Z88.0 Allergy status to penicillin; E11.65 Type 2 diabetes mellitus with hyperglycemia; E11.319 Type 2 diabetes mellitus with unspecified diabetic retinopathy without macular edema; E11.22 Type 2 diabetes mellitus with diabetic chronic kidney disease; N18.9 Chronic kidney disease, unspecified
CPT/HCPCS: 36415; 36430; 71045-TC-FY; 71046-TC-FY; 71250-TC; 80053; 80061; 81003; 81015; 82550; 82565; 82668; 82728; 82962; 83036; 83540; 83550; 83615; 83721; 83735; 83880; 84156; 84443; 84484; 85025; 85610; 86850; 86900; 86901; 86922; 93005; 93010; 93308; 97116-GP; 97161-GP; 99285-25; C9803; J1100; J1644; P9058; U0003

== ENCOUNTER 2020-06-17 12:21 | Inpatient (IN) | payer BC, OTHER ==
[2020-06-17 13:02] LABS: BASO % 0.7 % (0-2.0); EOS % 2.6 % (0-4.5); HEMATOCRIT 24.9 % (32.4-45.2); HEMOGLOBIN 8.1 GM/dl (10.7-15.3); MCH 27.5 pg (25.7-33.7); MCHC 32.3 g/dl (32.0-36.0); MEAN PLT VOLUME 12.1 fl (7.5-11.1); MONO % 5.4 % (3.8-10.2); NEUT % 76.3 % (42.8-82.8); PLATELET COUNT 218 K/MM3 (134-434); RBC 2.93 M/mm3 (3.60-5.2); RDW 16.4 % (11.6-15.6); WHITE BLOOD COUNT 7.5 K/mm3 (4.0-10.8)
[2020-06-17 13:10] LABS: ALBUMIN 3.4 g/dl (3.4-5.0); BILIRUBIN,TOTAL 0.5 mg/dl (0.2-1); CALCIUM 8.7 mg/dl (8.5-10); CREATININE 1.7 mg/dl (0.55-1.3); POTASSIUM 4.9 mmol/L (3.5-5.1); TOT PROT 6.8 g/dl (6.4-8.2)
[2020-06-17 13:17] LABS: ACTIVATED PTT 24.4 SECONDS (25.2-36.5)
[2020-06-17 13:21] LABS: INR 1.1 (0.82-1.09); PROTHROMBIN TIME (PATIENT) 12.2 SEC (10.2-13.0)
[2020-06-17 14:06] LABS: N-TERMINAL BNP 2997.8 pg/ml (5-125)
[2020-06-17 18:12] VITALS: BMI 48.9
[2020-06-17] MEDS ORDERED: FUROSEMIDE 40 MG/4 ML INJECTABLE VIAL IVPUSH ONE (18:50)
[2020-06-17] MEDS ORDERED: ACETAMINOPHEN 325 MG TABLET (FP) PO PRN (18:51)
[2020-06-17] MEDS: ATORVASTATIN CA 80 MG TABLET (FP) PO SCH (21:49)
[2020-06-17] MEDS: INSULIN SLIDING SCALE (NOVOLOG) 1 VIAL SQ SCH (21:55)
[2020-06-18] MEDS: INSULIN (NOVOLOG MIX 70/30) 100 UNITS/ML MDV SQ SCH ×2 (06:38→16:38)
[2020-06-18] MEDS: INSULIN SLIDING SCALE (NOVOLOG) 1 VIAL SQ SCH ×4 (06:39→21:27)
[2020-06-18 07:51] LABS: HEMATOCRIT 24.1 % (32.4-45.2); HEMOGLOBIN 7.8 GM/dl (10.7-15.3); MCHC 32.2 g/dl (32.0-36.0); PLATELET COUNT 228 K/MM3 (134-434); RBC 2.87 M/mm3 (3.60-5.2); RDW 16.2 % (11.6-15.6); WHITE BLOOD COUNT 8.2 K/mm3 (4.0-10.8)
[2020-06-18] MEDS ORDERED: FERRIC CARBOXYMALTOSE 750 MG in SODIUM CHLORIDE 250 ML IVPB ONE (08:00)
[2020-06-18 08:06] LABS: ALBUMIN 3.2 g/dl (3.4-5.0); BILIRUBIN,TOTAL 0.7 mg/dl (0.2-1); CREATININE 1.5 mg/dl (0.55-1.3); POTASSIUM 4.7 mmol/L (3.5-5.1); TOT PROT 6.3 g/dl (6.4-8.2)
[2020-06-18] MEDS ORDERED: FUROSEMIDE 40 MG/4 ML INJECTABLE VIAL IVPUSH ONE (08:25)
[2020-06-18] MEDS: ASPIRIN COATED 81 MG TABLET.EC PO SCH (09:47)
[2020-06-18] MEDS ORDERED: METOPROLOL TARTRATE 50 MG TABLET (FP) PO SCH (10:00)
[2020-06-18] MEDS: FUROSEMIDE 40 MG/4 ML INJECTABLE VIAL IVPUSH SCH (17:53)
[2020-06-18] MEDS: ATORVASTATIN CA 80 MG TABLET (FP) PO SCH (21:24)
[2020-06-19] MEDS: FUROSEMIDE 40 MG/4 ML INJECTABLE VIAL IVPUSH SCH (06:31)
[2020-06-19] MEDS ORDERED: INSULIN (NOVOLOG MIX 70/30) 100 UNITS/ML MDV SQ SCH ×2 (07:00→16:30)
[2020-06-19] MEDS: INSULIN SLIDING SCALE (NOVOLOG) 1 VIAL SQ SCH ×2 (08:39→14:25)
[2020-06-19] MEDS: ASPIRIN COATED 81 MG TABLET.EC PO SCH (09:49)
[2020-06-19 11:00] LABS: BASO % 0.3 % (0-2.0); EOS % 2.3 % (0-4.5); HEMATOCRIT 32.7 % (32.4-45.2); HEMOGLOBIN 10.6 GM/dl (10.7-15.3); LYMPH % 12.6 % (8-40); MCH 27.9 pg (25.7-33.7); MCHC 32.5 g/dl (32.0-36.0); MEAN CELL VOLUME 85.9 fl (80-96); MEAN PLT VOLUME 11.6 fl (7.5-11.1); MONO % 5.6 % (3.8-10.2); NEUT % 79.2 % (42.8-82.8); PLATELET COUNT 220 K/MM3 (134-434); RBC 3.81 M/mm3 (3.60-5.2); RDW 15.1 % (11.6-15.6); WHITE BLOOD COUNT 7.5 K/mm3 (4.0-10.8)
[2020-06-19 12:21] LABS: POTASSIUM 4.1 mmol/L (3.5-5.1)
[2020-06-19 12:25] LABS: CALCIUM 9.2 mg/dL (8.5-10.1)
[2020-06-19 12:26] LABS: ALBUMIN 3.2 g/dl (3.4-5.0); BLOOD UREA NITROGEN 34.2 mg/dL (7-18)
[2020-06-19 12:29] LABS: CREATININE 1.7 mg/dL (0.55-1.3)
[2020-06-19 12:30] LABS: BILIRUBIN,TOTAL 1.1 mg/dL (0.2-1); TOT PROT 7.1 g/dl (6.4-8.2)
[2020-06-19 14:41] VITALS: BP 153/71; PULSE 78; TEMP 98.6
[2020-06-19] MEDS ORDERED: FUROSEMIDE 40 MG TABLET (FP) PO SCH (16:00)
[2020-06-20] MEDS ORDERED: FUROSEMIDE 40 MG TABLET (FP) PO SCH (06:00)
== END 2020-06-19 16:37 | disposition home or self-care (01) | DRG 811 ==
LOC: FER 12:21 → FM/S 15:50
PROVIDERS: ADMIT Family Medicine; ATTEND Family Medicine
PROC: 30233N1 Transfusion of Nonautologous Red Blood Cells into Peripheral Vein, Percutaneous Approach (ICD-10-PCS; principal; 2020-06-18)
DX: D50.9 Iron deficiency anemia, unspecified (principal); I50.33 Acute on chronic diastolic (congestive) heart failure; I13.0 Hypertensive heart and chronic kidney disease with heart failure and stage 1 through stage 4 chronic kidney disease, or unspecified chronic kidney disease; Z68.42 Body mass index [BMI] 45.0-49.9, adult; I25.10 Atherosclerotic heart disease of native coronary artery without angina pectoris; E66.01 Morbid (severe) obesity due to excess calories; J44.9 Chronic obstructive pulmonary disease, unspecified; E11.22 Type 2 diabetes mellitus with diabetic chronic kidney disease; N18.9 Chronic kidney disease, unspecified; G47.33 Obstructive sleep apnea (adult) (pediatric); Z79.4 Long term (current) use of insulin; Z88.0 Allergy status to penicillin; E78.5 Hyperlipidemia, unspecified; E11.65 Type 2 diabetes mellitus with hyperglycemia
CPT/HCPCS: 36415; 36430; 36511; 71045-TC-FY; 76705-TC; 80053; 82962; 83540; 83550; 83880; 84484; 85025; 85027; 85610; 85730; 86850; 86900; 86901; 86922; 87077; 87086; 87804; 93005; 99285-25; C9803; J1439; P9038; P9058; U0003

== ENCOUNTER 2020-12-11 15:51 | Inpatient (IN) | payer BC, OTHER ==
[2020-12-11 18:06] LABS: BASO % 0.6 % (0-2.0); EOS % 1.8 % (0-4.5); HEMATOCRIT 32.5 % (32.4-45.2); HEMOGLOBIN 10.4 GM/dl (10.7-15.3); LYMPH % 12.7 % (8-40); MCH 28.6 pg (25.7-33.7); MCHC 32.2 g/dl (32.0-36.0); MEAN CELL VOLUME 89.1 fl (80-96); MONO % 6.3 % (3.8-10.2); NEUT % 78.6 % (42.8-82.8); PLATELET COUNT 214 10^3/uL (134-434); RBC 3.64 M/mm3 (3.60-5.2); RDW 13.6 % (11.6-15.6); WHITE BLOOD COUNT 8.5 K/mm3 (4.0-10.8)
[2020-12-11 18:15] LABS: ALBUMIN 3.2 g/dl (3.4-5.0); BILIRUBIN,TOTAL 0.5 mg/dl (0.2-1); CALCIUM 8.5 mg/dl (8.5-10); CREATININE 1.7 mg/dl (0.55-1.3); TOT PROT 6.9 g/dl (6.4-8.2)
[2020-12-11 18:19] LABS: INR 0.96 (0.82-1.09); PROTHROMBIN TIME (PATIENT) 10.8 SEC (10.2-13.0)
[2020-12-11] MEDS ORDERED: INSULIN REGULAR HUMAN 100 UNITS/ML *VIAL SQ ONE (18:44)
[2020-12-11] MEDS ORDERED: INSULIN REGULAR HUMAN 100 UNITS/ML *VIAL ONE (18:53)
[2020-12-11 19:57] LABS: N-TERMINAL BNP 1698.1 pg/ml (5-125)
[2020-12-11] MEDS ORDERED: ACETAMINOPHEN 1000 MG/100 ML VIAL (NON FORMULARY) IVPB ONE (22:18)
[2020-12-11] MEDS ORDERED: morphine CARPU-JECT 4 MG/1 ML DISP.SYRIN IVPUSH ONE (22:19)
[2020-12-11] MEDS ORDERED: ONDANSETRON 4 MG/2 ML VIAL IVPUSH ONE (22:19)
[2020-12-11] MEDS ORDERED: ACETAMINOPHEN INJECTION 100 ML IVPB ONE (22:20)
[2020-12-11] MEDS ORDERED: ONDANSETRON 4 MG/2 ML VIAL ONE (22:33)
[2020-12-11] MEDS ORDERED: morphine SULFATE 4 MG/ML VIAL ONE (22:33)
[2020-12-11] MEDS ORDERED: POLYETHYLENE GLYCOL (HEALTHYLAX) 3350 17 GM PACKET PO PRN (22:49)
[2020-12-11] MEDS ORDERED: FUROSEMIDE 40 MG/4 ML INJECTABLE VIAL IVPUSH ONE (22:52)
[2020-12-11] MEDS ORDERED: FUROSEMIDE 40 MG/4 ML INJECTABLE VIAL ONE (23:18)
[2020-12-12 00:26] VITALS: BMI 47.8
[2020-12-12] MEDS ORDERED: FUROSEMIDE 40 MG/4 ML INJECTABLE VIAL IVPUSH ONE (06:29)
[2020-12-12] MEDS: FUROSEMIDE 40 MG TABLET (FP) PO SCH ×2 (06:38→13:15)
[2020-12-12] MEDS: HEPARIN NA (PORCINE) 5,000 UNITS/ML 1ML VIAL SQ SCH ×3 (06:57→21:59)
[2020-12-12] MEDS: INSULIN SLIDING SCALE (NOVOLOG) 1 VIAL SQ SCH ×4 (07:06→22:05)
[2020-12-12 08:19] LABS: CALCIUM 8.6 mg/dl (8.5-10); CREATININE 1.8 mg/dl (0.55-1.3)
[2020-12-12 08:32] LABS: BASO % 0.5 % (0-2.0); EOS % 2.3 % (0-4.5); HEMATOCRIT 30.7 % (32.4-45.2); HEMOGLOBIN 10.1 GM/dl (10.7-15.3); LYMPH % 22.5 % (8-40); MCH 29.8 pg (25.7-33.7); MCHC 33.1 g/dl (32.0-36.0); MEAN CELL VOLUME 89.9 fl (80-96); MEAN PLT VOLUME 11.5 fl (7.5-11.1); MONO % 7.3 % (3.8-10.2); NEUT % 67.4 % (42.8-82.8); PLATELET COUNT 215 10^3/uL (134-434); RBC 3.41 M/mm3 (3.60-5.2); RDW 13.6 % (11.6-15.6); WHITE BLOOD COUNT 6.8 K/mm3 (4.0-10.8)
[2020-12-12] MEDS: ASPIRIN 81 MG CHEWABLE TABLETS PO SCH (09:30)
[2020-12-12] MEDS ORDERED: DOCUSATE SODIUM 100 MG CAPSULE (FP) PO SCH (10:00)
[2020-12-12] MEDS: IRON POLYSACCHARIDES 150 MG CAPSULE PO SCH (10:45)
[2020-12-12] MEDS: ACETAMINOPHEN 325 MG TABLET (FP) PO PRN ×2 (13:57→22:09)
[2020-12-12] MEDS ORDERED: SENNOSIDES 8.6MG TABLET (FP) PO SCH (22:00)
[2020-12-12] MEDS ORDERED: ATORVASTATIN CA 80 MG TABLET (FP) PO SCH (22:00)
[2020-12-12] MEDS ORDERED: CYCLOBENZAPRINE HCL 10 MG TABLET (FP) PO ONE (22:55)
[2020-12-13] MEDS: HEPARIN NA (PORCINE) 5,000 UNITS/ML 1ML VIAL SQ SCH (05:48)
[2020-12-13] MEDS ORDERED: FUROSEMIDE 40 MG/4 ML INJECTABLE VIAL IVPUSH SCH (06:00)
[2020-12-13] MEDS: INSULIN SLIDING SCALE (NOVOLOG) 1 VIAL SQ SCH ×2 (06:44→11:29)
[2020-12-13 09:34] LABS: BASO % 0.8 % (0-2.0); EOS % 3.2 % (0-4.5); HEMATOCRIT 28.6 % (32.4-45.2); HEMOGLOBIN 9.2 GM/dl (10.7-15.3); LYMPH % 23.7 % (8-40); MCH 28.8 pg (25.7-33.7); MCHC 32.3 g/dl (32.0-36.0); MEAN CELL VOLUME 89.1 fl (80-96); MEAN PLT VOLUME 11.4 fl (7.5-11.1); MONO % 8.3 % (3.8-10.2); PLATELET COUNT 180 10^3/uL (134-434); RBC 3.22 M/mm3 (3.60-5.2); RDW 13.5 % (11.6-15.6); WHITE BLOOD COUNT 6.3 K/mm3 (4.0-10.8)
[2020-12-13] MEDS: ASPIRIN 81 MG CHEWABLE TABLETS PO SCH (10:08)
[2020-12-13] MEDS: IRON POLYSACCHARIDES 150 MG CAPSULE PO SCH (10:35)
[2020-12-13 10:39] LABS: ALBUMIN 2.9 g/dl (3.4-5.0); BILIRUBIN,TOTAL 0.7 mg/dl (0.2-1); CALCIUM 8.5 mg/dl (8.5-10); CREATININE 1.8 mg/dl (0.55-1.3); MAGNESIUM 1.7 mg/dL (1.8-2.4); TOT PROT 6.3 g/dl (6.4-8.2)
[2020-12-13] MEDS: MAGNESIUM 2GM/50ML STERILE WATER IVPB IVPB ONE ×2 (12:11→13:08)
[2020-12-13 14:14] VITALS: BP 102/73; PULSE 84; TEMP 99.9
== END 2020-12-13 14:56 | disposition home or self-care (01) | DRG 204 ==
LOC: FER 15:51 → FM/S 23:03
PROVIDERS: ADMIT Internal Medicine; ATTEND Nurse Practitioner Acute Care
DX: R07.81 Pleurodynia (principal); I13.0 Hypertensive heart and chronic kidney disease with heart failure and stage 1 through stage 4 chronic kidney disease, or unspecified chronic kidney disease; I50.32 Chronic diastolic (congestive) heart failure; J98.11 Atelectasis; R07.89 Other chest pain; I25.10 Atherosclerotic heart disease of native coronary artery without angina pectoris; I10 Essential (primary) hypertension; K21.9 Gastro-esophageal reflux disease without esophagitis; G47.33 Obstructive sleep apnea (adult) (pediatric); E11.22 Type 2 diabetes mellitus with diabetic chronic kidney disease; N18.2 Chronic kidney disease, stage 2 (mild); J45.909 Unspecified asthma, uncomplicated; I07.1 Rheumatic tricuspid insufficiency; D64.9 Anemia, unspecified; E11.65 Type 2 diabetes mellitus with hyperglycemia; K59.09 Other constipation; Z95.5 Presence of coronary angioplasty implant and graft
CPT/HCPCS: 36415; 71045-TC-FY; 76775-TC; 80048; 80053; 82550; 82962; 83036; 83735; 83880; 84484; 85025; 85610; 93005; 99285-25; C9803; J0131; J1644; U0003; U0005

== ENCOUNTER 2021-01-13 01:20 | Observation (INO) | payer BC ==
[2021-01-13 02:15] LABS: EOS % 2.8 % (0-4.5); HEMATOCRIT 29.1 % (32.4-45.2); HEMOGLOBIN 9.8 GM/dL (10.7-15.3); LYMPH % 18.5 % (8-40); MCH 29.4 pg (25.7-33.7); MCHC 33.8 g/dl (32.0-36.0); MEAN PLT VOLUME 10.5 fl (7.5-11.1); MONO % 10.5 % (3.8-10.2); NEUT % 67.2 % (42.8-82.8); PLATELET COUNT 216 10^3/uL (134-434); RBC 3.35 M/mm3 (3.60-5.2); RDW 14.3 % (11.6-15.6); WHITE BLOOD COUNT 6.9 K/mm3 (4.0-10.0)
[2021-01-13 02:42] LABS: INR 0.99 (0.83-1.09); PROTHROMBIN TIME (PATIENT) 11.1 SEC (9.7-13.0)
[2021-01-13 02:44] LABS: ACTIVATED PTT 27.1 SECONDS (25.2-36.5)
[2021-01-13 02:45] LABS: ALBUMIN 2.6 g/dl (3.4-5.0); CALCIUM 8.7 mg/dL (8.5-10.1)
[2021-01-13 02:46] LABS: BLOOD UREA NITROGEN 43.6 mg/dL (7-18)
[2021-01-13 02:49] LABS: CREATININE 1.9 mg/dL (0.55-1.3)
[2021-01-13 02:50] LABS: BILIRUBIN,TOTAL 0.2 mg/dL (0.2-1)
[2021-01-13 02:54] LABS: N-TERMINAL BNP 1790.2 pg/ml (5-125)
[2021-01-13] MEDS ORDERED: ASPIRIN 81 MG CHEWABLE TABLETS PO ONE (03:54)
[2021-01-13] MEDS ORDERED: ASPIRIN 81 MG CHEWABLE TABLETS PO STA (03:55)
[2021-01-13 04:13] LABS: EPI CELLS 8 /uL (0-25.1); HYALINE CASTS 0 /uL (0-3.1); PH,URINE 5.5 (5.0-8.0); URINE APPEARANCE CLEAR; URINE BACTERIA 472 /uL (0-1359); URINE BILIRUBIN NEGATIVE (NEGATIVE); URINE COLOR YELLOW; URINE GLUCOSE (UA) 2+ (NEGATIVE); URINE KETONE NEGATIVE (NEGATIVE); URINE LEUK ESTERASE 2+ (NEGATIVE); URINE NITRITE NEGATIVE (NEGATIVE); URINE PROTEIN 2+ (NEGATIVE); URINE RBC 7 /uL (0-23.9); URINE UROBILINOGEN 0.2 mg/dL (0.2-1.0); URINE WBC 430 /uL (0-25.8)
[2021-01-13] MEDS ORDERED: POLYETHYLENE GLYCOL (HEALTHYLAX) 3350 17 GM PACKET PO PRN (04:39)
[2021-01-13] MEDS ORDERED: DOCUSATE SODIUM 100 MG CAPSULE (FP) PO PRN (04:39)
[2021-01-13] MEDS ORDERED: ACETAMINOPHEN 325 MG TABLET (FP) PO PRN (04:49)
[2021-01-13] MEDS ORDERED: ASPIRIN 81 MG CHEWABLE TABLETS ONE (05:04)
[2021-01-13] MEDS ORDERED: HEPARIN NA (PORCINE) 5,000 UNITS/ML 1ML VIAL ONE ×2 (06:22→15:27)
[2021-01-13] MEDS ORDERED: FUROSEMIDE 40 MG TABLET (FP) ONE ×2 (06:22→15:28)
[2021-01-13] MEDS: HEPARIN NA (PORCINE) 5,000 UNITS/ML 1ML VIAL SQ SCH ×3 (06:30→22:49)
[2021-01-13] MEDS: FUROSEMIDE 40 MG TABLET (FP) PO SCH ×2 (06:30→15:32)
[2021-01-13] MEDS ORDERED: ASPIRIN COATED 81 MG TABLET.EC ONE (09:34)
[2021-01-13] MEDS ORDERED: PANTOPRAZOLE 40 MG TABLET ONE (09:34)
[2021-01-13] MEDS: PANTOPRAZOLE 40 MG TABLET PO SCH (09:38)
[2021-01-13] MEDS: IRON POLYSACCHARIDES 150 MG CAPSULE PO SCH (09:38)
[2021-01-13] MEDS: ASPIRIN 81 MG CHEWABLE TABLETS PO SCH (09:39)
[2021-01-13] MEDS ORDERED: ERGOCALCIFEROL (VIT D2) 50,000 UNIT (1.25 MG) CAPSULE PO ONE (21:31)
[2021-01-13] MEDS ORDERED: SENNOSIDES 8.6MG TABLET (FP) PO SCH (22:00)
[2021-01-13] MEDS ORDERED: ATORVASTATIN CA 80 MG TABLET (FP) PO SCH (22:00)
[2021-01-13 23:57] VITALS: BMI 48.3
[2021-01-14] MEDS ORDERED: Insulin (LOG) Aspart 100 UNITS/ML VIAL SQ ONE (00:13)
[2021-01-14] MEDS ORDERED: INSULIN (NOVOLOG) ASPART 100 UNITS/ML 10ML VIAL ONE (05:13)
[2021-01-14] MEDS: HEPARIN NA (PORCINE) 5,000 UNITS/ML 1ML VIAL SQ SCH ×2 (06:15→13:45)
[2021-01-14] MEDS: FUROSEMIDE 40 MG TABLET (FP) PO SCH ×2 (06:27→13:45)
[2021-01-14] MEDS: INSULIN SLIDING SCALE (NOVOLOG) 1 VIAL SQ SCH ×3 (06:28→17:04)
[2021-01-14] MEDS ORDERED: INSULIN (NOVOLOG MIX 70/30) 100 UNITS/ML MDV SQ SCH ×3 (07:00→18:11)
[2021-01-14 07:21] LABS: BASO % 0.6 % (0-2.0); EOS % 2.7 % (0-4.5); HEMATOCRIT 30.6 % (32.4-45.2); HEMOGLOBIN 10.2 GM/dL (10.7-15.3); LYMPH % 23.7 % (8-40); MCH 29.5 pg (25.7-33.7); MCHC 33.2 g/dl (32.0-36.0); MEAN CELL VOLUME 88.7 fl (80-96); MONO % 7.5 % (3.8-10.2); NEUT % 65.5 % (42.8-82.8); PLATELET COUNT 230 10^3/uL (134-434); RBC 3.45 M/mm3 (3.60-5.2); RDW 14.5 % (11.6-15.6); WHITE BLOOD COUNT 5.9 K/mm3 (4.0-10.0)
[2021-01-14 08:16] LABS: CALCIUM 8.9 mg/dL (8.5-10.1)
[2021-01-14 08:17] LABS: BLOOD UREA NITROGEN 43.3 mg/dL (7-18)
[2021-01-14 08:20] LABS: CREATININE 1.9 mg/dL (0.55-1.3)
[2021-01-14] MEDS: LIDOCAINE 5% TOPICAL PATCH TP SCH ×2 (10:44→11:00)
[2021-01-14] MEDS: ASPIRIN 81 MG CHEWABLE TABLETS PO SCH ×2 (10:44→11:01)
[2021-01-14] MEDS: IRON POLYSACCHARIDES 150 MG CAPSULE PO SCH ×2 (10:44→11:01)
[2021-01-14] MEDS: PANTOPRAZOLE 40 MG TABLET PO SCH ×2 (10:45→11:01)
[2021-01-14 16:13] VITALS: BP 138/64; PULSE 84; TEMP 98.1
[2021-01-14] MEDS ORDERED: INSULIN SLIDING SCALE (NOVOLOG) 1 VIAL SQ SCH (18:12)
[2021-01-14] MEDS ORDERED: LIDOCAINE PATCH REMOVAL MC SCH (22:00)
== END 2021-01-14 19:08 | disposition home or self-care (01) ==
LOC: JER 01:20 → JERBED 03:00 → J4W 22:01
PROVIDERS: ADMIT Internal Medicine; ATTEND Family Medicine
PROC: 3E013VG Introduction of Insulin into Subcutaneous Tissue, Percutaneous Approach (ICD-10-PCS; principal; 2021-01-13)
PROC: 3E023GC Introduction of Other Therapeutic Substance into Muscle, Percutaneous Approach (ICD-10-PCS; 2021-01-13)
DX: I25.10 Atherosclerotic heart disease of native coronary artery without angina pectoris (principal); E11.65 Type 2 diabetes mellitus with hyperglycemia; I11.0 Hypertensive heart disease with heart failure; N17.9 Acute kidney failure, unspecified; E66.01 Morbid (severe) obesity due to excess calories; Z68.42 Body mass index [BMI] 45.0-49.9, adult; Z88.0 Allergy status to penicillin; E78.5 Hyperlipidemia, unspecified; K59.00 Constipation, unspecified; D64.9 Anemia, unspecified; K21.9 Gastro-esophageal reflux disease without esophagitis; J45.909 Unspecified asthma, uncomplicated; Z95.5 Presence of coronary angioplasty implant and graft; Z29.9 Encounter for prophylactic measures, unspecified
CPT/HCPCS: 36415; 71045-TC-FY; 80048; 80053; 81003; 82550; 82962; 83036; 83690; 83880; 84484; 85025; 85610; 85730; 87077; 87086; 93005; 93010; 93306-TC; 96372; 99285-25; C9803; G0378; J1644; U0003; U0005